=== PATIENT | female | born 1940 | race Caucasian/White ===

== ENCOUNTER → 2017-05-07 | Outpatient (CLI) | payer OTHER ==
[2017-05-07 10:57] LABS: HEMATOCRIT 38.3 % (37-47); MEAN CELL VOLUME 90.8 fL (80-100); MEAN CORPUSCULAR HEMOGLOBIN 29.6 pg (25-34); MEAN CORPUSCULAR HGB CONC 32.6 g/dl (32-36); MEAN PLATELET VOLUME 11.5 fL (7.4-10.4); PLATELET COUNT 198 K/uL (130-400); RED BLOOD COUNT 4.22 M/uL (4.2-5.4); WHITE BLOOD COUNT 5.64 K/uL (4.8-10.8)
[2017-05-07 11:21] LABS: ALT/SGPT 13 U/L (12-78); AST/SGOT 14 U/L (15-37); BLOOD UREA NITROGEN 15 mg/dl (7-18); BUN/CREATININE RATIO 21.8 (10-20); CALCIUM 9.7 mg/dl (8.5-10.1); CARBON DIOXIDE 28 mmol/L (21-32); CHLORIDE 108 mmol/L (98-107); CHOLESTEROL 191 mg/dl (0-200); CREATININE 0.67 mg/dl (0.60-1.20); GLUCOSE 86 mg/dl (70-99); POTASSIUM 3.6 mmol/L (3.5-5.1); SODIUM 143 mmol/L (136-145); TRIGLYCERIDES 138 mg/dl (0-150); VERY LOW DENSITY LIPOPROT CALC 28 mg/dl
[2017-05-07 11:40] LABS: ALB/GLOB RATIO 0.8 (0.9-2); ALKALINE PHOSPHATASE 95 U/L (45-117); CHOLESTEROL/HDL RATIO 4.9; HDL CHOLESTEROL 39 mg/dl; LDL CHOLESTEROL CALCULATED 124 mg/dl; THYROID STIMULATING HORMONE 0.103 uIu/ml (0.300-4.500)
== END | disposition home or self-care (01) ==
LOC: C.LABBC 08:09
PROVIDERS: ATTEND Surgery
DX: I10 Essential (primary) hypertension (principal); E11.9 Type 2 diabetes mellitus without complications; J44.9 Chronic obstructive pulmonary disease, unspecified

== ENCOUNTER 2022-04-07 11:05 | Observation (INO) ==
[2022-04-07 12:35] LABS: Basophils # (auto) 0.06 K/uL (0-0.2); Basophils % (auto) 0.3 %; Eosinophils # (auto) 0.01 K/uL (0-0.50); Hematocrit (blood only) 36.1 % (34.1-44.9); Hemoglobin 11.4 g/dl (12.0-16.0); Immature Granulocytes # (auto) 0.13 K/uL (0.00-0.02); Immature Granulocytes % (auto) 0.6 %; Lymphocytes # (auto) 1.02 K/uL (1.2-3.4); Lymphocytes % (auto) 4.8 %; Mean Corpuscular Hemoglobin 27.5 pg (25.0-34.0); Mean Corpuscular Hgb Conc 31.6 g/dL (32.0-36.0); Mean Platelet Volume 12.2 fL (9.4-12.3); Monocytes # (auto) 1.46 K/uL (0.24-0.82); Monocytes % (auto) 6.9 %; Neutrophils % (auto) 87.4 %; Platelet Count 212 K/uL (130-400); RDW Coefficient of Variation 15.5 % (11.5-14.5); RDW Standard Deviation 49.4 fL (36.4-46.3); Red Blood Count 4.15 M/uL (3.93-5.22); White Blood Count 21.08 K/ul (4.8-10.8)
[2022-04-07 12:47] LABS: Potassium 3.3 mmol/L (3.5-5.1)
[2022-04-07 12:48] LABS: Albumin Level 3.5 gm/dl (3.4-5.0); BUN Creatinine Ratio 19.5 (10-20); Bilirubin,Total 0.9 mg/dl (0.2-1.0); Creatinine Clr Calc Pharmacy 39.3 ml/min; Est GFR (African American) 78.3 ml/min; Est GFR (Non-African American) 67.6 ml/min; Globulin 3.4 gm/dl (2.5-4.0); Total Protein 6.9 gm/dl (6.0-8.3)
--- NOTE | 2022-04-07 13:25 | Emergency Department Note ---
Impression & Plan Leukopenia, Anemia, Abdominal pain, Vomiting ED Provider Note NAME: LOGAN MARCELINO AGE: 82 SEX: F : 1940 ARRIVES VIA: Walk-In INFORMANT: Patient ED PROVIDER(S): Anish Farrell DO CHIEF COMPLAINT: abdominal pain HPI: Patient is an 82-year-old female who presents to the ER with past medical history of superior mesenteric artery syndrome, squamous cell carcinoma, vocal cord paralysis, COPD, and hypothyroidism for periumbilical abdominal pain. She notes that she has been getting this pain off and on for the past year. Was initially several times a month now has been constant for the past several months. It got worse today and consequently she came in. She is taking Ultram for the pain. She admits to nausea, and diarrhea which started last night. V omiting started this morning. She has been unable to keep anything down since this started. No dysuria, urgency, or frequency. No other exacerbating or remitting factors. ROS: See above HPI for pertinent positives & negatives. A total of 10 systems reviewed and were otherwise negative. PAST MEDICAL HISTORY:See Below PAST SURGICAL HISTORY:See Below FAMILY HISTORY:See Below SOCIAL HISTORY:See Below HOME MEDICATIONS:See Below ALLERGIES:See Below VITALS:See Below PHYSICAL EXAMINATION: GENERAL: Sitting up in bed, alert, well appearing, well nourished, no distress, non-toxic EYE EXAM: normal conjunctiva. OROPHARYNX: no exudate, no erythema, lips, buccal mucosa, and tongue normal and mucous membranes are moist NECK: supple, no nuchal rigidity, no adenopathy, non-tender LUNGS: Clear to auscultation. Normal chest wall mechanics HEART: no murmurs, S1 normal and S2 normal ABDOMEN: abdomen soft, non-tender, normo-active bowel sounds, no masses, no rebound or guarding. UPPER EXTREMITIES: upper extremities are grossly normal. LOWER EXTREMITIES: No pitting edema. NEURO EXAM: Normal sensorium, cranial nerves II-XII grossly intact, normal speech, no gross weakness of arms, no gross weakness of legs. MEDICAL DECISION MAKING: Patient is an 82-year-old female who presents the ER for the above-stated complaint. IV was established blood work was obtained. Labs show a leukocytosis of 21,000. Mild anemia 11.4. Mild hypokalemia at 3.3. Lactate was normal. LFTs bilirubin and lipase was unremarkable. UA without infection. COVID was negative. CT angio abdomen pelvis showed no significant change from previous scans. Patient was given IV fluids and Zofran. She was updated bedside. Discussed with the hospitalist due to the abdominal pain, leukocytosis and persistent vomiting unable to keep anything down. They are agreeable to watch her overnight. Triage Nursing notes reviewed. Limited review of prior medical records performed Vital Signs: reviewed and remarkable for tachy Differential diagnosis: Differential diagnoses includes but is not limited to gastritis, peptic ulcer disease, GERD, gallbladder disease, pancreatitis, small bowel obstruction, acute coronary syndrome, pericarditis, ischemic bowel, irritable bowel disease, irritable bowel syndrome, appendicitis, diverticulitis, malignancy, hernia, urinary tract infection, torsion, perforation, trauma, infectious. ER treatment provided: See below Diagnostics interpreted by me: ECG: none Cardiac Monitoring: An order was placed for continuous cardiac monitoring. The monitor shows a rate of 82 with sinus rhythm. Laboratory studies: As stated above and show below. Imaging studies: CT angio of the abdomen pelvis showed no acute pathology. Consultation(s): none Procedures: none Critical Care: None Past Med/Surg History Medical History Acid reflux Adrenal nodule Atrial fibrillation Dx 4-5 years ago; on xarelto; hx cardioversion; follows with Dr. Pat COPD (chronic obstructive pulmonary disease) COHN (dyspnea on exertion) Glaucoma History of uterine cancer dx > 5 years; treated surgically HLD (hyperlipidemia) Hypertension Hyperthyroidism Poor historian Pulmonary nodules Vocal cord paralysis, unilateral complete Surgical History History of anesthesia reaction SLOW TO WAKE UP History of cardioversion History of cataract surgery RT/LEFT History of colonoscopy History of endoscopy History of esophagogastroduodenoscopy (EGD) History of total abdominal hysterectomy and bilateral salpingo-oophorectomy S/P cholecystectomy Family History Daughter Breast cancer Mother Cancer Uterine cancer Father Heart disease Sister Family history of diabetes mellitus Brother Family history of diabetes mellitus Aunt Family history of diabetes mellitus Aunt Family history of diabetes mellitus Other Family history non-contributory Hypertension No family history of adverse response to anesthesia Denies family history of Colon cancer Ovarian cancer Prostate cancer Myocardial infarction Social History Smoking Status: Never smoker Tobacco Type: Cigarettes Second Hand Exposure: No; Hx Alcohol Use: No Hx Substance Use: No Preferred Language: Czech Communication Ability: Effective Visual Impairment: No Limitations Hearing Ability: Normal Apartment Maintenance Manager Required: No Beliefs That Will Affect Care: None marital status: / Current Living Situation: Alone current occupational status: retired How many Children do You have: 3 Feels Safe at Home: Yes Childhood Exposure to Second-Hand Smoke: Yes caffeine: Yes during the past year weight has: remained stable Dental Care, Regularly: No Physical Activity Frequency: Does not Exercise Seatbelt Use: always Sunscreen Use: Yes Assistive Devices: Denture - Upper, Denture - Lower and Glasses Allergies Allergies Allergy/AdvReac Type Severity Reaction Status Date / Time No Known Drug Allergies Allergy Unknown Unknown Verified 03/28/22 08:44 adhesive tape AdvReac Intermediate PULLS SKIN Verified 03/28/22 08:44 OFF Home Meds Home Medications Medication Instructions Recorded Confirmed latanoprost 0.005 % eye drops 1 drp OPB HS 11/20/18 03/28/22 (Xalatan) diltiazem HCl 240 mg 240 mg PO QAM 03/24/22 03/28/22 capsule,extended release 24 hr Previous Rx's Medication Instructions Recorded benazepril 20 mg tablet 40 mg PO QPM #180 tabs 04/18/21 pantoprazole 40 mg tablet,delayed 40 mg PO BID #180 tabs 07/17/21 release ipratropium 0.5 mg-albuterol 3 mg 3 ml inhalation BID PRN shortness 08/24/21 (2.5 mg base)/3 mL nebulization of breath or wheezing #15 mL soln methimazole 5 mg tablet 5 mg PO QAM 90 days #90 tabs 11/02/21 fluticasone fur. 100 mcg-umeclid 1 inh inhalation DAILY #60 ea 11/06/21 62.5 mcg-vilant 25 mcg inhalat.powder (Trelegy Ellipta) rivaroxaban 20 mg tablet (Xarelto) 20 mg PO QPM #90 tabs 01/16/22 ferrous sulfate 325 mg (65 mg 325 mg PO QAM #90 tabs 01/31/22 iron) tablet (Iron (ferrous sulfate)) albuterol sulfate 90 mcg/actuation 2 puff inhalation QID PRN 02/22/22 aerosol inhaler (Ventolin HFA) Shortness Of Breath Or Wheezing #8.5 grams atorvastatin 10 mg tablet 10 mg PO QPM #90 tabs 03/05/22 dicyclomine 10 mg capsule 10 mg PO QID 30 days #120 caps 03/15/22 tramadol 50 mg tablet (Ultram) 50 mg PO Q12H PRN pain #20 tabs 03/24/22 tramadol 50 mg tablet (Ultram) 50 mg PO Q12H PRN pain #20 tabs 03/25/22 Results & Data (ED) Vital Signs Vital Signs - 24 hr 04/07/22 11:15 04/07/22 12:00 04/07/22 13:40 Temperature 36.5 C Temperature Source Temporal Artery Scan Pulse Rate 93 H 105 H Pulse Rate [Apical] 87 Pulse Rate from SpO2 Sensor 99 H Respiratory Rate 20 17 18 Respiratory Effort / Characteristics Non-Labored Respiratory Depth Normal Blood Pressure 137/70 105/68 Blood Pressure [Left Arm] 151/64 H Blood Pressure Mean 92 80 Blood Pressure Mean [Left Arm] 93 Pulse Oximetry 92 92 96 Oxygen Delivery Method Room Air Room Air Sepsis Recent Fever Within 48 Hours No Sepsis New/Unexplained Change in Mental Status N/A Sepsis Action Taken by Nursing No Action Required 04/07/22 13:40 Temperature Temperature Source Pulse Rate Pulse Rate [Apical] Pulse Rate from SpO2 Sensor Respiratory Rate Respiratory Effort / Characteristics Respiratory Depth Blood Pressure Blood Pressure [Left Arm] Blood Pressure Mean Blood Pressure Mean [Left Arm] Pulse Oximetry 96 Oxygen Delivery Method Room Air Sepsis Recent Fever Within 48 Hours Sepsis New/Unexplained Change in Mental Status Sepsis Action Taken by Nursing Laboratory Data Result diagrams: 04/07/22 11:40 04/07/22 11:40 Lab Results 04/07/22 04/07/22 04/07/22 Range/Units 11:40 11:40 13:44 WBC 21.08 H (4.8-10.8) K/ul RBC 4.15 (3.93-5.22) M/uL Hgb 11.4 L (12.0-16.0) g/dl Hct 36.1 (34.1-44.9) % MCV 87.0 (80.0-100.0) fL MCH 27.5 (25.0-34.0) pg MCHC 31.6 L (32.0-36.0) g/dL RDW Std Deviation 49.4 H (36.4-46.3) fL RDW Coeff of Rosio 15.5 H (11.5-14.5) % Plt Count 212 (130-400) K/uL MPV 12.2 (9.4-12.3) fL Immature Gran % (Auto) 0.6 % Neut % (Auto) 87.4 % Lymph % (Auto) 4.8 % [place] % (Auto) 6.9 % Eos % (Auto) 0.0 % Baso % (Auto) 0.3 % Neut # (Auto) 18.40 H (1.4-6.5) K/uL Lymph # (Auto) 1.02 L (1.2-3.4) K/uL [place] # (Auto) 1.46 H (0.24-0.82) K/uL Eos # (Auto) 0.01 (0-0.50) K/uL Baso # (Auto) 0.06 (0-0.2) K/uL Immature Gran # (Auto) 0.13 H (0.00-0.02) K/uL Sodium 140 (136-145) mmol/L Potassium 3.3 L (3.5-5.1) mmol/L Chloride 103 (98-107) mmol/L Carbon Dioxide 25 (21-32) mmol/L Anion Gap 12 H (3-11) BUN 16 (6-23) mg/dl Creatinine 0.82 (0.6-1.2) mg/dl Est Cr Clr Drug Dosing 39.3 ml/min Est GFR ( Amer) 78.3 ml/min Est GFR (Non-Af Amer) 67.6 ml/min BUN/Creatinine Ratio 19.5 (10-20) Glucose 122 H (70-99(Fasting)) mg/dl Lactate (0.4-2.0) mmol/L Calcium 8.0 L (8.5-10.1) mg/dl Total Bilirubin 0.9 (0.2-1.0) mg/dl AST 14 (13-39) U/L ALT 9 (7-52) U/L Alkaline Phosphatase 87 (34-104) U/L Total Protein 6.9 (6.0-8.3) gm/dl Albumin 3.5 (3.4-5.0) gm/dl Globulin 3.4 (2.5-4.0) gm/dl Albumin/Globulin Ratio 1.0 (0.9-2) Lipase 16 (11-82) U/L Urine Color Dark Yellow Urine Appearance Clear (Clear) Urine pH 5.5 (4.5-7.5) Ur Specific [place] 1.022 (1.000-1.030) Urine Protein 1+ H (Negative) Urine Glucose (UA) Negative (Negative) Urine Ketones Trace H (Negative) Urine Blood Negative (Negative) Urine Nitrite Negative (Negative) Urine Bilirubin Negative (Negative) Urine Urobilinogen Negative (Negative) Ur Leukocyte Esterase Trace H (Negative) Urine WBC (Auto) 1-5 (0-5) /hpf Urine RBC (Auto) 0-4 (0-4) /hpf U Hyaline Cast (Auto) 1-5 (0-5) /lpf U Epithel Cells (Auto) >30 H (0-5) /lpf Urine Bacteria (Auto) Negative (Negative) SARS-CoV-2, RNA, NAAT (NEGATIVE) 04/07/22 04/07/22 Range/Units 15:09 15:26 WBC (4.8-10.8) K/ul RBC (3.93-5.22) M/uL Hgb (12.0-16.0) g/dl Hct (34.1-44.9) % MCV (80.0-100.0) fL MCH (25.0-34.0) pg MCHC (32.0-36.0) g/dL RDW Std Deviation (36.4-46.3) fL RDW Coeff of [place] (11.5-14.5) % Plt Count (130-400) K/uL MPV (9.4-12.3) fL Immature Gran % (Auto) % Neut % (Auto) % Lymph % (Auto) % [place] % (Auto) % Eos % (Auto) % Baso % (Auto) % Neut # (Auto) (1.4-6.5) K/uL Lymph # (Auto) (1.2-3.4) K/uL [place] # (Auto) (0.24-0.82) K/uL Eos # (Auto) (0-0.50) K/uL Baso # (Auto) (0-0.2) K/uL Immature Gran # (Auto) (0.00-0.02) K/uL Sodium (136-145) mmol/L Potassium (3.5-5.1) mmol/L Chloride (98-107) mmol/L Carbon Dioxide (21-32) mmol/L Anion Gap (3-11) BUN (6-23) mg/dl Creatinine (0.6-1.2) mg/dl Est Cr Clr Drug Dosing ml/min Est GFR ( Amer) ml/min Est GFR (Non-Af Amer) ml/min BUN/Creatinine Ratio (10-20) Glucose (70-99(Fasting)) mg/dl Lactate 0.9 (0.4-2.0) mmol/L Calcium (8.5-10.1) mg/dl Total Bilirubin (0.2-1.0) mg/dl AST (13-39) U/L ALT (7-52) U/L Alkaline Phosphatase (34-104) U/L Total Protein (6.0-8.3) gm/dl Albumin (3.4-5.0) gm/dl Globulin (2.5-4.0) gm/dl Albumin/Globulin Ratio (0.9-2) Lipase (11-82) U/L Urine Color Urine Appearance (Clear) Urine pH (4.5-7.5) Ur Specific [place] (1.000-1.030) Urine Protein (Negative) Urine Glucose (UA) (Negative) Urine Ketones (Negative) Urine Blood (Negative) Urine Nitrite (Negative) Urine Bilirubin (Negative) Urine Urobilinogen (Negative) Ur Leukocyte Esterase (Negative) Urine WBC (Auto) (0-5) /hpf Urine RBC (Auto) (0-4) /hpf U Hyaline Cast (Auto) (0-5) /lpf U Epithel Cells (Auto) (0-5) /lpf Urine Bacteria (Auto) (Negative) SARS-CoV-2, RNA, NAAT NEGATIVE (NEGATIVE) Administered Medications Discontinued Medications Sodium Chloride (Nss 1000ml) 1,000 mls @ 999 mls/hr IV .Q1H1M ONE Stop: 04/07/22 15:38 Last Admin: 04/07/22 14:50 Dose: 999 mls/hr Documented By: MARK Ioversol (Optiray 320 500ml) 120 ml IV ONCE ONE Stop: 04/07/22 13:35 Last Admin: 04/07/22 13:35 Dose: 120 ml Documented By: SHARATH(2) Ondansetron HCl (Ondansetron Inj 2 Mg/Ml 2 Ml Vial) 4 mg IV NOW STA Stop: 04/07/22 14:39 Last Admin: 04/07/22 14:50 Dose: 4 mg Documented By: MARK Imaging Data Radiologist's Impression: Abdomen/Pelvis CTA 04/07/22 12:44 CT angio abdomen pelvis w con HISTORY: Generalized abdominal and back pain. TECHNIQUE: Multiaxial CT images of the abdomen and pelvis were performed following the intravenous administration of 120 cc of Optiray 320 to evaluate the major arterial structures. Maximal intensity projection images were also obtained. COMPARISON STUDY: Abdomen and pelvis CTA 03/24/2022. FINDINGS: Small patchy density within the right middle lobe which is new from the prior study. This could represent a mild pneumonitis. No pneumoperitoneum. N o pneumatosis. No acute fractures within the visualized osseous structures. The heart remains mildly enlarged. The bladder is unremarkable. Prior hysterectomy. Fluid-filled loops of small and large bowel seen throughout the abdomen. Some of these loops of large and small bowel may demonstrate mild mucosal hyperenhancement. Therefore, this raises the possibility of a low-grade enterocolitis. No evidence for bowel obstruction. Normal appendix. No retroperitoneal lymphadenopathy. The right adrenal gland, spleen, and pancreas are unremarkable. Stable left adrenal gland nodule. Multiple stable scattered hypodense lesions again noted within the kidneys. These favor cysts. No hydronephrosis. Stable 9 mm right renal angiomyolipoma. Stable 2.7 cm hypodense lesion within the left hepatic lobe consistent with a cyst. Stable 1.8 cm left renal midpole complex/septated cyst. This is better appreciated on the prior MRI There is again noted a mildly ectatic abdominal aorta measuring up to 2.3 cm in diameter. No evidence for abdominal aortic aneurysm or dissection. Moderate to severe calcified plaque seen within the aorta, iliac arteries, renal, and mesenteric vessels. 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 This is unchanged since prior CTA. The vessel is occluded 1.5 cm proximal. There is moderate stenosis within the remainder of the SMA. There is moderate stenosis at the origin the celiac axis and inferior mesenteric artery. IMPRESSION: 1. Fluid-filled loops of small and large bowel seen throughout the abdomen. Some of these loops of large and small bowel may demonstrate mild mucosal hyperenhancement. Therefore, this raises the possibility of a low-grade enterocolitis. 2. Occluded proximal SMA with distal reconstitution remains unchanged. There is moderate stenosis at the origins of the celiac axis and inferior mesenteric artery. Extensive atherosclerotic plaque within the abdominal aorta and branch vessels again noted. 3. Small patchy airspace opacity within the right middle lobe. This could represent a developing pneumonitis. ACT 112: Negative or not required by law. Electronically signed by: Leonard Lucia M.D. 04/07/2022 1:49 PM Discharge Plan Visit Data Chief Complaint: Abdominal Pain Stated Complaint: ABDOMINAL AND BACK PAIN, NUMB HAND ED Provider: Anish Farrell Discharge Problem: Leukopenia, Anemia, Abdominal pain, Vomiting Forms Stand Alone Forms: [facility] [employer] Prescriptions Prescriptions: No Action benazepril 20 mg tablet 40 mg PO QPM Qty: 180 3RF ipratropium-albuterol 0.5 mg-3 mg(2.5 mg base)/3 mL solution for nebulization 3 ml inhalation BID PRN (Reason: shortness of breath or wheezing) Qty: 15 1RF Rx Instructions: INHALE 3 ML INHALATION TWICE A DAY NEEDED FOR SHORTNESS OF BREATH OR WHEEZING methimazole 5 mg tablet 5 mg PO QAM 90 Days Qty: 90 1RF Trelegy Ellipta 100-62.5-25 mcg blister with device 1 inh inhalation DAILY Qty: 60 2RF Xarelto 20 mg tablet 20 mg PO QPM Qty: 90 1RF Rx Instructions: TAKE 1 TABLET BY MOUTH EVERY DAY IN THE EVENING ferrous sulfate [Iron (ferrous sulfate)] 325 mg (65 mg iron) tablet 325 mg PO QAM Qty: 90 1RF atorvastatin 10 mg tablet 10 mg PO QPM Qty: 90 1RF dicyclomine 10 mg capsule 10 mg PO QID 30 Days Qty: 120 0RF pantoprazole 40 mg tablet,delayed release (DR/EC) 40 mg PO BID Qty: 180 3RF albuterol sulfate [Ventolin HFA] 90 mcg/actuation HFA aerosol inhaler 2 puff INHALATION QID PRN (Reason: Shortness Of Breath Or Wheezing) Qty: 8.5 1RF latanoprost [Xalatan] 0.005 % drops 1 drp OPB HS diltiazem HCl 240 mg capsule,extended release 24hr 240 mg PO QAM Rx Instructions: TAKE 1 CAPSULE BY MOUTH EVERY DAY tramadol [Ultram] 50 mg tablet 50 mg PO Q12H PRN (Reason: pain) Qty: 20 0RF tramadol [Ultram] 50 mg tablet 50 mg PO Q12H PRN (Reason: pain) Qty: 20 0RF Referrals Referrals: Carlton Mendez III, CRNP [Primary Care Provider] -
[2022-04-07] MEDS ORDERED: OPTIRAY 320 500ml IV ONE (13:34)
--- NOTE | 2022-04-07 13:51 | CT Scan Report ---
CT angio abdomen pelvis w con HISTORY: Generalized abdominal and back pain. TECHNIQUE: Multiaxial CT images of the abdomen and pelvis were performed following the intravenous ad ministration of 120 cc of Optiray 320 to evaluate the major arterial structures. Maximal intensity pr ojection images were also obtained. COMPARISON STUDY: Abdomen and pelvis CTA 03/24/2022. FINDINGS: Small patchy density within the right middle lobe which is new from the prior study. This c ould represent a mild pneumonitis. No pneumoperitoneum. No pneumatosis. No acute fractures within the visualized osseous structures. The heart remains mildly enlarged. The bladder is unremarkable. Prior hysterectomy. Fluid-filled loops of small and large bowel seen throughout the abdomen. Some of these loops of large and small bowel may demonstrate mild mucosal hyperenhancement. Therefore, this raises the possibility of a low-grade enterocolitis. No evidence for bowel obstruction. Normal appendix. No retroperitoneal lymphadenopathy. The right adrenal gland, spleen, and pancreas are unremarkable. Sta ble left adrenal gland nodule. Multiple stable scattered hypodense lesions again noted within the kid neys. These favor cysts. No hydronephrosis. Stable 9 mm right renal angiomyolipoma. Stable 2.7 cm hyp odense lesion within the left hepatic lobe consistent with a cyst. Stable 1.8 cm left renal midpole c omplex/septated cyst. This is better appreciated on the prior MRI There is again noted a mildly ectatic abdominal aorta measuring up to 2.3 cm in diameter. No evidence for abdominal aortic aneurysm or dissection. Moderate to severe calcified plaque seen within the aor ta, iliac arteries, renal, and mesenteric vessels. Occlusion of the proximal SMA with distal reconsti tution is again noted. This is unchanged since prior CTA. The vessel is occluded 1.5 cm proximal. The re is moderate stenosis within the remainder of the SMA. There is moderate stenosis at the origin the celiac axis and inferior mesenteric artery. IMPRESSION: 1. Fluid-filled loops of small and large bowel seen throughout the abdomen. Some of these loops of la rge and small bowel may demonstrate mild mucosal hyperenhancement. Therefore, this raises the possibi lity of a low-grade enterocolitis. 2. Occluded proximal SMA with distal reconstitution remains unchanged. There is moderate stenosis at the origins of the celiac axis and inferior mesenteric artery. Extensive atherosclerotic plaque withi n the abdominal aorta and branch vessels again noted. 3. Small patchy airspace opacity within the right middle lobe. This could represent a developing pneu monitis. ACT 112: Negative or not required by law. Electronically signed by: Leonard Lucia M.D. 04/07/2022 1:49 PM
[2022-04-07 14:21] LABS: Appearance Urine Clear (Clear); Bacteria Urine Automated Negative (Negative); Bilirubin Urine Negative (Negative); Blood Urine Negative (Negative); Color Urine Dark Yellow; Epithelial Cell Urine Auto >30 /lpf (0-5); Glucose Urine UA Negative (Negative); Ketones Urine Trace (Negative); Leukocyte Esterase Urine Trace (Negative); Nitrite Urine Negative (Negative); Protein Urine 1+ (Negative); RBC Urine Automated 0-4 /hpf (0-4); Specific Gravity Urine 1.022 (1.000-1.030); Urobilinogen Urine Negative (Negative); pH Urine 5.5 (4.5-7.5)
[2022-04-07] MEDS ORDERED: ONDANSETRON INJ 2 MG/ML 2 ML VIAL IV STA (14:38)
[2022-04-07] MEDS ORDERED: SODIUM CHLORIDE 0.9% 1000ML 1,000 ML IV ONE (14:38)
--- NOTE | 2022-04-07 14:51 | History & Physical Report ---
Date of Service April 07, 2022 Assessment & Plan (1) Abdominal pain: Plan: Abdominal pain, SMA syndrome Patient with significant postprandial pain, currently with inadequate p.o. intake Follows with vascular, last seen 03/27/2022. CTA with moderate stenosis of celiac axis, occlusion of SMA with reconstitution, extensive aortic/common iliac/external iliac complex. She is not a candidate for endovascular intervention to mesenteric artery, pending bypass revascular[place] [facility] Patient seen by cardiology 03/28/2022 for preoperative clearance for anticipated mesenteric artery bypass at [facility]. At that visit was noted to be stable, but given higher surgical risk and underlying risk factors was recommended for stress echo follow-up prior to procedure which remains pending Patient is anticoagulated on rivaroxaban, - CTA: 1. Fluid-filled loops of small and large bowel seen throughout the abdomen. Some of these loops of large and small bowel may demonstrate mild mucosal hyperenhancement. Therefore, this raises the possibility of a low-grade enterocolitis. 2. Occluded proximal SMA with distal reconstitution remains unchanged. There is moderate stenosis at the origins of the celiac axis and inferior mesenteric artery. Extensive atherosclerotic plaque within the abdominal aorta and branch vessels again noted. 3. Small patchy airspace opacity within the right middle lobe. This could represent a developing pneumonitis. No interval change in blood flow to SMA as noted above. Patient given supportive care, given potential for low-grade enterocolitis pathogen panel ordered. Lactate pending. - Clears as tolerated - Zofran for nausea - Morphine PRN - ?Mild coloitis on exam, unasyn for enteric coverage Atrial fibrillation Permanent atrial fibrillation Rate controlled, continue diltiazem Continue rivaroxaban anticoagulation Hyperthyroidism Continue methimazole Reflux Continue Protonix twice daily, converted to IV while n.p.o. Hypertension Continue JAY, diltiazem DVT prophylaxis: Anticoagulated CODE STATUS: Full code Disposition: Medical/surgical Diet: N.p.o. (2) Anemia: (3) COPD (chronic obstructive pulmonary disease): (4) SMAS (superior mesenteric artery syndrome): (5) Atrial fibrillation: History of Present Illness Primary Care Provider: Carlton Mendez, III, LUIZ Lakeshia is an 82-year-old female with a past medical history of superior mesenteric artery syndrome, pulmonary nodules, A. fib, COPD, hypertension, multinodular goiter, reflux, and hypothyroidism who is pending surgical follow-up in [facility] for SMA syndrome who presents with abdominal pain. Pain off and on for 1 year Pending surgery at [facility] on Saturday. Stress Test scheduled for Apr 18 Estefania to have pain in the miline from top to bottom of her belly. 03/05 when she has a flare, last week had 2 relatively pain free days, last few days has been ~ an 8. Has no noticed a signifant change with meals in the last few weeks, generally just hurts on and off on its own. No fevers or chills BMs 'terrible. Runny and liquid. BMs are sometimes bloom and sometimes brown depending on if she can eat. No bloody/black BMs. No worsened shortness of breateh, chest pressure, or chest pain. Has a baseline dry cough, nonproductive. Hx of laryngeal reflux. Medical History: Reviewed Medications: Reviewed Surgical History: Reviewed Allergies: Reviewed Social History: Former smoker no etho Code Status: Full Allergies Allergy/AdvReac Type Severity Reaction Status Date / Time No Known Drug Allergies Allergy Unknown Unknown Verified 03/28/22 08:44 adhesive tape AdvReac Intermediate PULLS SKIN Verified 03/28/22 08:44 OFF Home Medications Medication Instructions Recorded Confirmed Type latanoprost 0.005 % eye drops 1 drp OPB HS 11/20/18 03/28/22 History (Xalatan) benazepril 20 mg tablet 40 mg PO QPM #180 tabs 04/18/21 03/28/22 Rx pantoprazole 40 mg tablet,delayed 40 mg PO BID #180 tabs 07/17/21 03/28/22 Rx release ipratropium 0.5 mg-albuterol 3 mg 3 ml inhalation BID PRN shortness 08/24/21 03/28/22 Rx (2.5 mg base)/3 mL nebulization of breath or wheezing #15 mL soln methimazole 5 mg tablet 5 mg PO QAM 90 days #90 tabs 11/02/21 03/28/22 Rx fluticasone fur. 100 mcg-umeclid 1 inh inhalation DAILY #60 ea 11/06/21 03/28/22 Rx 62.5 mcg-vilant 25 mcg inhalat.powder (Trelegy Ellipta) rivaroxaban 20 mg tablet (Xarelto) 20 mg PO QPM #90 tabs 01/16/22 03/28/22 Rx ferrous sulfate 325 mg (65 mg 325 mg PO QAM #90 tabs 01/31/22 03/28/22 Rx iron) tablet (Iron (ferrous sulfate)) albuterol sulfate 90 mcg/actuation 2 puff inhalation QID PRN 02/22/22 03/28/22 Rx aerosol inhaler (Ventolin HFA) Shortness Of Breath Or Wheezing #8.5 grams atorvastatin 10 mg tablet 10 mg PO QPM #90 tabs 03/05/22 03/28/22 Rx dicyclomine 10 mg capsule 10 mg PO QID 30 days #120 caps 03/15/22 03/28/22 Rx diltiazem HCl 240 mg 240 mg PO QAM 03/24/22 03/28/22 History capsule,extended release 24 hr tramadol 50 mg tablet (Ultram) 50 mg PO Q12H PRN pain #20 tabs 03/24/22 03/28/22 Rx tramadol 50 mg tablet (Ultram) 50 mg PO Q12H PRN pain #20 tabs 03/25/22 03/28/22 Rx Past Med/Surg History Medical History Acid reflux Adrenal nodule Atrial fibrillation Dx 4-5 years ago; on xarelto; hx cardioversion; follows with Dr. Pat COPD (chronic obstructive pulmonary disease) COHN (dyspnea on exertion) Glaucoma History of uterine cancer dx > 5 years; treated surgically HLD (hyperlipidemia) Hypertension Hyperthyroidism Poor historian Pulmonary nodules Vocal cord paralysis, unilateral complete Surgical History History of anesthesia reaction SLOW TO WAKE UP History of cardioversion History of cataract surgery RT/LEFT History of colonoscopy History of endoscopy History of esophagogastroduodenoscopy (EGD) History of total abdominal hysterectomy and bilateral salpingo-oophorectomy S/P cholecystectomy Family History Daughter Breast cancer Mother Cancer Uterine cancer Father Heart disease Sister Family history of diabetes mellitus Brother Family history of diabetes mellitus Aunt Family history of diabetes mellitus Aunt Family history of diabetes mellitus Other Family history non-contributory Hypertension No family history of adverse response to anesthesia Denies family history of Colon cancer Ovarian cancer Prostate cancer Myocardial infarction Social History Smoking Status: Never smoker Tobacco Type: Cigarettes Second Hand Exposure: No; Hx Alcohol Use: No Hx Substance Use: No Preferred Language: Occitan Communication Ability: Effective Visual Impairment: No Limitations Hearing Ability: Normal Conservation Of Resources Commissioner Required: No Beliefs That Will Affect Care: None marital status: / Current Living Situation: Alone current occupational status: retired How many Children do You have: 3 Feels Safe at Home: Yes Childhood Exposure to Second-Hand Smoke: Yes caffeine: Yes during the past year weight has: remained stable Dental Care, Regularly: No Physical Activity Frequency: Does not Exercise Seatbelt Use: always Sunscreen Use: Yes Assistive Devices: Denture - Upper, Denture - Lower and Glasses Review of Systems Review of Systems: All systems reviewed & are unremarkable except as noted in HPI & below Physical Exam Physical Exam: General: A&Ox3. NAD. Cooperative. Nontoxic HEENT: Atraumatic, normocephalic. Pulm: CTAB A&P. -wheezes, -rales, -rhonchi. Symmetrical chest rise. No increased work of breathing. No respiratory distress. Cardiac: irir, -mrg. Radial pulses intact and symmetrical. Abdominal: Mild TTP at epigastum minimally worsened with palpation, no rebound. BS intact. Ext: warm, dry Results & Data Results & Data ([facility]) Vital Signs (Past 12 Hours) Vital Signs Temp Pulse Pulse Resp BP BP Pulse Ox 04/07/22 13:40 96 04/07/22 13:40 87 18 151/64 H 96 04/07/22 12:00 105 H 17 105/68 92 04/07/22 11:15 36.5 C 93 H 20 137/70 92 O2 Del Method 04/07/22 13:40 Room Air 04/07/22 13:40 Room Air 04/07/22 12:00 04/07/22 11:15 Room Air PG Care Time/CCT Total # of Minutes Spent Total Time Spent with Patient: Total time spent is greater than 50% in coordination of care (as documented) at patient's floor/unit and/or counseling patient: Coding Level of Care Code INT OBSERVATION CARE 50M LVL 2 Diagnoses Abdominal pain R10.9 Anemia D64.9 COPD (chronic obstructive pulmonary disease) J44.9 COPD type: unspecified COPD SMAS (superior mesenteric artery syndrome) K55.1 Atrial fibrillation I48.11 Atrial fibrillation type: longstanding persistent (1) COPD (chronic obstructive pulmonary disease) COPD type: unspecified COPD Qualified Code(s): J44.9 - Chronic obstructive pulmonary disease, unspecified (2) Atrial fibrillation Atrial fibrillation type: longstanding persistent Qualified Code(s): I48.11 - Longstanding persistent atrial fibrillation
[2022-04-07] MEDS ORDERED: LACTATED RINGER'S 1,000 ML IV SCH (16:54)
[2022-04-07] MEDS ORDERED: MoRPHine SULFATE 2 MG/ML CARP IV PRN ×2 (16:54)
[2022-04-07] MEDS ORDERED: ONDANSETRON INJ 2 MG/ML 2 ML VIAL IV PRN (16:54)
[2022-04-07] MEDS ORDERED: ACETAMINOPHEN 325 MG TAB PO PRN (16:54)
[2022-04-07] MEDS: POTASSIUM CHLORIDE / WTR 10 MEQ/100 ML PLCT IV SCH ×3 (18:27→20:21)
[2022-04-07 19:46] LABS: Adenovirus F 40/41 PCR Not Detected (NotDetected); Astrovirus PCR Not Detected (NotDetected); Campylobacter PCR Not Detected (NotDetected); Cryptosporidium PCR Not Detected (NotDetected); Cyclospora cayetanensis PCR Not Detected (NotDetected); Entamoeba histolytica PCR Not Detected (NotDetected); Enteroaggregative E.coli(EAEC) Not Detected (NotDetected); Enteropathogenic E.coli (EPEC) Not Detected (NotDetected); Enterotoxigenic E.coli (ETEC) Not Detected (NotDetected); Giardia lamblia PCR Not Detected (NotDetected); Norovirus GI/GII PCR Not Detected (NotDetected); Plesiomonas shigelloides PCR Not Detected (NotDetected); Rotavirus A PCR Not Detected (NotDetected); Salmonella PCR Not Detected (NotDetected); Sapovirus PCR Not Detected (NotDetected); Shiga-like Toxin E.coli (STEC) Not Detected (NotDetected); Shigella/Enteroinvasive E.coli Not Detected (NotDetected); Vibrio cholerae PCR Not Detected (NotDetected); Vibrio species PCR Not Detected (NotDetected); Yersinia enterocolitica PCR Not Detected (NotDetected)
[2022-04-07] MEDS: PANTOprazole 40 MG TAB PO SCH (20:27)
[2022-04-07] MEDS ORDERED: RIVAROXABAN 15 MG TAB PO SCH (21:00)
[2022-04-07] MEDS ORDERED: ENALAPRIL MALEATE 10 MG TAB PO SCH (21:00)
[2022-04-07] MEDS ORDERED: LATANOPROST 0.005% OP SOLN 2.5 ML BTL OPB SCH (21:00)
[2022-04-07] MEDS ORDERED: ATORVASTATIN 10 MG TAB PO SCH (21:00)
[2022-04-08 06:09] LABS: Basophils # (auto) 0.05 K/uL (0-0.2); Basophils % (auto) 0.7 %; Eosinophils # (auto) 0.08 K/uL (0-0.50); Eosinophils % (auto) 1.1 %; Hematocrit (blood only) 31.4 % (34.1-44.9); Immature Granulocytes # (auto) 0.05 K/uL (0.00-0.02); Immature Granulocytes % (auto) 0.7 %; Lymphocytes # (auto) 1.34 K/uL (1.2-3.4); Lymphocytes % (auto) 17.9 %; Mean Corpuscular Hemoglobin 27.9 pg (25.0-34.0); Mean Corpuscular Hgb Conc 31.8 g/dL (32.0-36.0); Mean Corpuscular Volume 87.5 fL (80.0-100.0); Monocytes # (auto) 0.54 K/uL (0.24-0.82); Monocytes % (auto) 7.2 %; Neutrophils # (auto) 5.42 K/uL (1.4-6.5); Neutrophils % (auto) 72.4 %; Platelet Count 165 K/uL (130-400); RDW Coefficient of Variation 15.4 % (11.5-14.5); RDW Standard Deviation 49.4 fL (36.4-46.3); Red Blood Count 3.59 M/uL (3.93-5.22); White Blood Count 7.48 K/ul (4.8-10.8)
[2022-04-08 06:10] LABS: BUN Creatinine Ratio 20.7 (10-20); Calcium 7.2 mg/dl (8.5-10.1); Creatinine Clr Calc Pharmacy 55.6 ml/min; Est GFR (African American) 100.9 ml/min; Est GFR (Non-African American) 87.1 ml/min; Potassium 3.3 mmol/L (3.5-5.1)
[2022-04-08] MEDS ORDERED: POTASSIUM CHLORIDE CRTAB 20 MEQ TABCR PO STA (07:52)
[2022-04-08] MEDS ORDERED: dilTIAZem HCL 240 MG CAPCR PO SCH (09:00)
[2022-04-08] MEDS ORDERED: NON-FORMULARY MEDICATION (Fluticasone-Umeclidin-Vilanter [Trelegy Ellipta] 100-62.5-25 mcg INH SCH (09:00)
[2022-04-08] MEDS ORDERED: FLUTICASONE FUROATE 100MCG 14 PUFFS/INHALER INH SCH (09:00)
[2022-04-08] MEDS ORDERED: methIMAzole 5 MG TABLET PO SCH (09:00)
[2022-04-08] MEDS ORDERED: UMECLIDINIUM/VILANTEROL 62.5/25MCG 7 PUFFS/INHALER INH SCH (09:00)
[2022-04-08] MEDS: PANTOprazole 40 MG TAB PO SCH (09:10)
--- NOTE | 2022-04-08 12:18 | Discharge Summary ---
Date of Service April 08, 2022 Admission HPI Per Admitting Provider Lakeshia is an 82-year-old female with a past medical history of superior mesenteric artery syndrome, pulmonary nodules, A. fib, COPD, hypertension, multinodular goiter, reflux, and hypothyroidism who is pending surgical follow-up in [facility] for SMA syndrome who presents with abdominal pain. Pain off and on for 1 year Pending surgery at [facility] [place] on Saturday. Stress Test scheduled for Apr 18 Coninues to have pain in the miline from top to bottom of her belly. 03/05 when she has a flare, last week had 2 relatively pain free days, last few days has been ~ an 8. Has no noticed a signifant change with meals in the last few weeks, generally just hurts on and off on its own. No fevers or chills BMs 'terrible. Runny and liquid. BMs are sometimes bloom and sometimes brown depending on if she can eat. No bloody/black BMs. No worsened shortness of breateh, chest pressure, or chest pain. Has a baseline dry cough, nonproductive. Hx of laryngeal reflux. Medical History: Reviewed Medications: Reviewed Surgical History: Reviewed Allergies: Reviewed Social History: Former smoker no etho Code Status: Full Principal Diagnosis 1. Abdominal pain- resolved 2. SMAS 3. Hypokalemia-corrected Discharge Exam GENERAL: 82 yo Well-developed, well-nourished elderly WF. NAD. LUNGS: Clear to auscultation bilaterally. No W/R/R. CARDIOVASCULAR: Irreg rhythm. No M/G/R. ABDOMEN: Soft, non-tender and non-distended. No palpable masses. BS normoactive x 4 quad. EXTREMITIES: No edema. Non-tender. Peripheral pulses +2/4. NEUROLOGIC: A&O x3. Nonfocal PSYCHIATRIC: Cooperative. Appropriate mood and affect. SKIN: Warm, dry, intact. No rashes or lesions. Discharge Data Allergies Allergy/AdvReac Type Severity Reaction Status Date / Time No Known Drug Allergies Allergy Unknown Unknown Verified 04/07/22 16:40 adhesive tape AdvReac Intermediate PULLS SKIN Verified 04/07/22 16:40 OFF Consultations 04/07/22 14:39 ED Decision to Admit Stat Ordered Studies Abdomen/Pelvis CTA 04/07/22 12:44 CT angio abdomen pelvis w con HISTORY: Generalized abdominal and back pain. TECHNIQUE: Multiaxial CT images of the abdomen and pelvis were performed following the intravenous administration of 120 cc of Optiray 320 to evaluate the major arterial structures. Maximal intensity projection images were also obtained. COMPARISON STUDY: Abdomen and pelvis CTA 03/24/2022. FINDINGS: Small patchy density within the right middle lobe which is new from the prior study. This could represent a mild pneumonitis. No pneumoperitoneum. No pneumatosis. No acute fractures within the visualized osseous structures. The heart remains mildly enlarged. The bladder is unremarkable. Prior hysterectomy. Fluid-filled loops of small and large bowel seen throughout the abdomen. Some of these loops of large and small bowel may demonstrate mild mucosal hyperenhancement. Therefore, this raises the possibility of a low-grade enterocolitis. No evidence for bowel obstruction. Normal appendix. No retroperitoneal lymphadenopathy. The right adrenal gland, spleen, and pancreas are unremarkable. Stable left adrenal gland nodule. Multiple stable scattered hypodense lesions again noted within the kidneys. These favor cysts. No hydronephrosis. Stable 9 mm right renal angiomyolipoma. Stable 2.7 cm hypodense lesion within the left hepatic lobe consistent with a cyst. Stable 1.8 cm left renal midpole complex/septated cyst. This is better appreciated on the prior MRI There is again noted a mildly ectatic abdominal aorta measuring up to 2.3 cm in diameter. No evidence for abdominal aortic aneurysm or dissection. Moderate to severe calcified plaque seen within the aorta, iliac arteries, renal, and mesenteric vessels. 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 This is unchanged since prior CTA. The vessel is occluded 1.5 cm proximal. There is moderate stenosis within the remainder of the SMA. There is moderate stenosis at the origin the celiac axis and inferior mesenteric artery. IMPRESSION: 1. Fluid-filled loops of small and large bowel seen throughout the abdomen. Some of these loops of large and small bowel may demonstrate mild mucosal hyperenhancement. Therefore, this raises the possibility of a low-grade enterocolitis. 2. Occluded proximal SMA with distal reconstitution remains unchanged. There is moderate stenosis at the origins of the celiac axis and inferior mesenteric artery. Extensive atherosclerotic plaque within the abdominal aorta and branch vessels again noted. 3. Small patchy airspace opacity within the right middle lobe. This could represent a developing pneumonitis. ACT 112: Negative or not required by law. Electronically signed by: Leonard Lucia M.D. 04/07/2022 1:49 PM Hospital Course (1) Abdominal pain: Abdominal pain, SMA syndrome Patient with significant postprandial pain, currently with inadequate p.o. intake Follows with vascular, last seen 03/27/2022. CTA with moderate stenosis of celiac axis, occlusion of SMA with reconstitution, extensive aortic/common iliac/external iliac complex. She is not a candidate for endovascular intervention to mesenteric artery, pending bypass revascularization at [facility] [place]. Patient seen by cardiology 03/28/2022 for preoperative clearance for anticipated mesenteric artery bypass at [facility] [place]. At that visit was noted to be stable, but given higher surgical risk and underlying risk factors was michelle mmended for stress echo follow-up prior to procedure which remains pending Patient is anticoagulated on rivaroxaban, - CTA: 1. Fluid-filled loops of small and large bowel seen throughout the abdomen. Some of these loops of large and small bowel may demonstrate mild mucosal hyperenhancement. Therefore, this raises the possibility of a low-grade enterocolitis. 2. Occluded proximal SMA with distal reconstitution remains unchanged. There is moderate stenosis at the origins of the celiac axis and inferior mesenteric artery. Extensive atherosclerotic plaque within the abdominal aorta and branch vessels again noted. 3. Small patchy airspace opacity within the right middle lobe. This could represent a developing pneumonitis. No interval change in blood flow to SMA as noted above. Patient given supportive care, given potential for low-grade enterocolitis pathogen panel ordered (negative). Lactate WNL. - Clears as tolerated --> advanced to reg for lunch on 04/08 - Zofran for nausea, continue PPI (as taken for GERD) - Morphine PRN - has not required any dosees - ?Mild colitis on exam, unasyn for enteric coverage-->convert to Augmentin upon dc to complete course (2) Anemia: (3) COPD (chronic obstructive pulmonary disease): - Stable - Continue inhalers (4) Atrial fibrillation: Permanent atrial fibrillation Rate controlled, continue diltiazem Continue rivaroxaban anticoagulation Plan Pt tolerated diet advancement for lunch today with exacerbation of abdominal pain. Medically stable for dc home today on course of Augmentin (to start this evening) in order to ensure that she gets to her consult with vascular surgery at [facility] [place] on 04/09. Plan d/w Dr. Goddard who is in agreement. Total Time Total Time Spent Total Time Spent (In Minutes): <30 minutes Discharge Plan Discharge Items Patient Disposition: Home - Self-Care Reason For Visit: ABDOMINAL PAIN, SMA SYNDROME Discharge Diagnosis: abdominal pain Activity: Resume your previous activity Non-emergency contact: Primary Care Provider and Specialist Call non-emergency contact if: you have any medication questions Follow-up/Referrals: Carlton Mendez III, CRNP [Primary Care Provider] - Diet: Regular Diet Texture: Easy to Chew Addtl Attending Provider Instructions: You were hospitalized with abdominal pain which is felt to be related to you narrowing of one of the arteries in your stomach. You have an appointment at [facility] to see a vascular surgeon tomorrow 04/09. It will be important that you keep this appointment so your surgery is not delayed. Since your abdominal pain has subsided, you will be discharged home on a course of antibiotics to cover for possible infection that is causing inflammation in your colon. You will be discharged home on Augmentin 875-125mg which you will take twice a day. You can crush this and take it in applesauce if it is easier for you to swallow. Your next dose is due on 04/08 with dinner. Please complete the course and do not leave any pills left over. You can use Tylenol as needed for your pain. It is recommended that you follow up with your primary care provider within 1 week of discharge from the hospital. If you have any questions or concerns following your discharge, feel free to contact the nonemergency number listed on your discharge paperwork. In the event of a medical emergency, call 911. Pending Studies at Discharge: No Stand-Alone Forms: [facility], Smoking Cessation Medications and DC Order Prescriptions: New amoxicillin-pot clavulanate 875-125 mg tablet 1 tab PO BID Qty: 19 0RF Continued benazepril 20 mg tablet 40 mg PO QPM Qty: 180 3RF ipratropium-albuterol 0.5 mg-3 mg(2.5 mg base)/3 mL solution for nebulization 3 ml inhalation BID PRN (Reason: shortness of breath or wheezing) Qty: 15 1RF Rx Instructions: INHALE 3 ML INHALATION TWICE A DAY NEEDED FOR SHORTNESS OF BREATH OR WHEEZING methimazole 5 mg tablet 5 mg PO QAM 90 Days Qty: 90 1RF Trelegy Ellipta 100-62.5-25 mcg blister with device 1 inh inhalation DAILY Qty: 60 2RF Xarelto 20 mg tablet 20 mg PO QPM Qty: 90 1RF Rx Instructions: TAKE 1 TABLET BY MOUTH EVERY DAY IN THE EVENING ferrous sulfate [Iron (ferrous sulfate)] 325 mg (65 mg iron) tablet 325 mg PO QAM Qty: 90 1RF atorvastatin 10 mg tablet 10 mg PO QPM Qty: 90 1RF dicyclomine 10 mg capsule 10 mg PO QID 30 Days Qty: 120 0RF pantoprazole 40 mg tablet,delayed release (DR/EC) 40 mg PO BID Qty: 180 3RF albuterol sulfate [Ventolin HFA] 90 mcg/actuation HFA aerosol inhaler 2 puff INHALATION QID PRN (Reason: Shortness Of Breath Or Wheezing) Qty: 8.5 1RF latanoprost [Xalatan] 0.005 % drops 1 drp OPB HS diltiazem HCl 240 mg capsule,extended release 24hr 240 mg PO QAM Rx Instructions: TAKE 1 CAPSULE BY MOUTH EVERY DAY tramadol 50 mg tablet 50 mg PO Q12 PRN (Reason: Pain) Discharge Orders: Discharge Order (Routine); Ordered 04/08/22 Ordered By: Martha Mcguire Admission Data Admit Date/Time: 04/07/22 15:17 Attending Provider: Anibal Goddard Admit Provider: Corwin Elise Primary Care Provider: Carlton Mendez III Other Providers: Corwin Elise Other Interventions: Discharge Summary Assessment (RN) Last Done: 04/08/22 13:13 Supervising Physician Co-Signing Physician Notes I supervised Martha Mcguire PA-C on the care of this patient. Patient was admitted in last 24 hours, as such I did not see the patient myself. The plan is as written in her note except for any following changes/exceptions: None Coding Level of Care Code 88145 OBS Care - Discharge Diagnoses Abdominal pain R10.9 Anemia D64.9 COPD (chronic obstructive pulmonary disease) J44.9 COPD type: unspecified COPD Atrial fibrillation I48.11 Atrial fibrillation type: longstanding persistent
--- NOTE | 2022-04-25 06:59 | Coding Query ---
A supporting diagnosis is required for the test/procedure performed on this patient in order for us to be reimbursed by the patient's insurance. Please provide a supporting diagnosis for the following test/procedure listed below next to the test name along with your signature. *If there is no additional diagnosis for this patient that would support the following test/procedure please document that below next to the test/procedure. Test(s)/Procedure(s) that require a supporting diagnosis: * 24381 GI GASTROINTESTINAL PANEL DIAGNOSIS: DATE OF SERVICE: 04/07/22 ICD10 - R.19.7 Diarrhea - R19.4 Change in bowel habit - R10.9 Abdominal Pain Provider Signature: Corwin Elise IV Date: 05/02/22 Thank you Zana Robles [facility] Information Management Once completed, please kindly fax back to [phone] For questions please call [phone] [facility]
== END 2022-04-08 14:02 | disposition home or self-care (01) ==
LOC: 3E 11:05 → ED 11:05 → SUATTDRO 15:17 → 3E 16:41

== ENCOUNTER 2022-06-08 15:10 | Observation (INO) ==
--- NOTE | 2022-06-08 15:29 | ED Triage Note ---
Date of Service June 08, 2022 History of Present Illness This patient was briefly evaluated while in triage. An abbreviated physical exam was performed. This patient is a 82-year-old Female with past medical history of SMA stenosis who presents to the ED for evaluation of vomiting and epigastric pain. Physical Exam VITALS: Vitals are noted on the nurse's note and reviewed by myself. GENERAL: This is an 82-year-old female, in no acute distress, sitting up in a chair. HEART: Regular rate and rhythm without murmurs gallops or rubs. LUNGS: Clear to auscultation bilaterally without wheezes, rales or rhonchi. ABDOMEN: Positive bowel sounds x 4. Soft, tenderness in the periumbilical region. NEURO: Patient was alert and oriented to person place and time. Initial orders for labs and / or imaging were placed and patient was placed in the waiting area until a bed is available. Please see further documentation for the full ED course.
[2022-06-08 17:31] LABS: Basophils # (auto) 0.05 K/uL (0-0.2); Basophils % (auto) 0.3 %; Eosinophils # (auto) 0.08 K/uL (0-0.50); Eosinophils % (auto) 0.4 %; Hematocrit (blood only) 36.6 % (34.1-44.9); Hemoglobin 11.6 g/dl (12.0-16.0); Immature Granulocytes # (auto) 0.12 K/uL (0.00-0.02); Immature Granulocytes % (auto) 0.6 %; Lymphocytes # (auto) 1.42 K/uL (1.2-3.4); Lymphocytes % (auto) 7.3 %; Mean Corpuscular Hemoglobin 27.2 pg (25.0-34.0); Mean Corpuscular Hgb Conc 31.7 g/dL (32.0-36.0); Mean Corpuscular Volume 85.9 fL (80.0-100.0); Monocytes # (auto) 1.48 K/uL (0.24-0.82); Monocytes % (auto) 7.6 %; Neutrophils # (auto) 16.24 K/uL (1.4-6.5); Neutrophils % (auto) 83.8 %; Platelet Count 258 K/uL (130-400); RDW Coefficient of Variation 15.8 % (11.5-14.5); RDW Standard Deviation 49.2 fL (36.4-46.3); Red Blood Count 4.26 M/uL (3.93-5.22); White Blood Count 19.39 K/ul (4.8-10.8)
[2022-06-08 17:49] LABS: Albumin Level 3.5 gm/dl (3.4-5.0); BUN Creatinine Ratio 20.9 (10-20); Bilirubin,Total 0.9 mg/dl (0.2-1.0); Calcium 7.5 mg/dl (8.5-10.1); Creatinine Clr Calc Pharmacy 34.1 ml/min; Est GFR (African American) 69.1 ml/min; Est GFR (Non-African American) 59.6 ml/min; Globulin 3.5 gm/dl (2.5-4.0); Potassium 3.2 mmol/L (3.5-5.1)
--- NOTE | 2022-06-08 18:55 | XRay Report ---
XR abdomen 2V w PA chest HISTORY: 82 years-old Female Abdominal pain, vomiting acute chest and abdominal pain with nausea and vomiting COMPARISON: [facility] June 05, 2022 TECHNIQUE: AP view of the chest with upright and supine views of the abdomen FINDINGS: Cardiomediastinal and hilar silhouettes are within normal limits. Atherosclerosis of the aorta. No pn eumothorax, pleural effusion, airspace consolidation or overt pulmonary edema. Bones of the chest galen ear grossly intact. Cholecystectomy. Nonobstructive bowel gas pattern. No urolith identified. No pneu matosis or pneumoperitoneum. Lumbar levoscoliosis with degenerative changes of the spine, pelvis and hips. IMPRESSION: 1. No acute processes of the chest. 2. Nonobstructive bowel gas pattern. ACT 112: Negative or not required by law. The above report was generated using voice recognition software. It may contain grammatical, syntax o r spelling errors. Electronically signed by: Yuval Guardado M.D. 06/08/2022 6:54 PM
[2022-06-08] MEDS ORDERED: FAMOTIDINE 20MG IV PUSH 20 MG/5 ML SYR IV STA (19:34)
[2022-06-08] MEDS ORDERED: SODIUM CHLORIDE 0.9% 1000ML 1,000 ML IV ONE (19:34)
[2022-06-08] MEDS ORDERED: ONDANSETRON INJ 2 MG/ML 2 ML VIAL IV STA (19:34)
[2022-06-08] MEDS ORDERED: OPTIRAY 320 500ml IV ONE (20:40)
--- NOTE | 2022-06-08 21:03 | CT Scan Report ---
CT angio abdomen pelvis w con CLINICAL HISTORY: 82 years-old Female with ischemic bowel acute generalized abdominal pain with na usea, vomiting and diarrhea COMPARISON STUDY: CT abdomen pelvis June 02, 2022, CTA of 04/07/2022, 03/24/2022, 03/06/2022 TECHNIQUE: Following the IV administration of cc of Optiray, CT angiogram of the abdomen and pelvis w as performed from the lung bases the proximal femora. Images are reviewed in the axial, sagittal, and coronal planes. 3-D MIPS images are created and assessed. All measurements were obtained according t o NASCET criteria. IV contrast was administered without complication. A dose lowering technique was utilized adhering to the principles of ALARA. CT DOSE: 244.92 mGy.cm FINDINGS: CTA: Extensive atherosclerosis of the aorta with mid abdominal aortic ectasia measuring up to 2.4 cm. 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 Moderate stenosis at the origins of the celiac trunk and inferior mesenteric artery redemonstrated. No high-grade stenosis identified involving the renal arteries. The iliac and imaged femoral arteries appear patent. CT ABDOMEN/PELVIS: Heart is upper limits of normal in size. Clear lung bases. No pneumatosis or pneumoperitoneum. The un enhanced spleen, mildly atrophic pancreas and right adrenal gland are unremarkable. Stable likely bradly ign 1.8 cm left adrenal gland nodule. Cholecystectomy. Stable 2.6 cm probable cyst of the left hepati c lobe. Cholecystectomy. Bilateral renal vascular calcifications are again noted. 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 Combination of bilateral simple and complex renal cysts redemons trated. No renal or ureteral calculi or hydronephrosis. Urinary bladder wall thickening with partial distention. There is no lymphadenopathy. Colonic diverticulosis. Scattered small and large bowel air-fluid levels is similar in appearance to the 04/07/2022 exam. A few loops of small bowel within the left midabdomen demonstrate wall thickenin g. Additional wall thickening is noted involving the cecum, ascending colon and hepatic flexure with mucosal hyperemia. Noninflamed appendix. Pelvic floor relaxation. Unremarkable soft tissues. No acute fracture. Degenerative changes of the spine, pelvis and hips. IMPRESSION: 1. 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 2. Fluid-filled loops of large and small bowel wall are again noted throughout the abdomen and pelvis which is similar to prior suggestive of a nonspecific enterocolitis with diarrheal illness. Wall thi ckening of the ascending colon and hepatic flexure is new compared to the prior study. 3. Additional findings as above. ACT 112: Negative or not required by law. The above report was generated using voice recognition software. It may contain grammatical, syntax o r spelling errors. Electronically signed by: Yuval Guardado M.D. 06/08/2022 9:01 PM
[2022-06-08 21:33] LABS: Appearance Urine Clear (Clear); Bacteria Urine Automated Negative (Negative); Bilirubin Urine Negative (Negative); Blood Urine Negative (Negative); Color Urine Yellow; Epithelial Cell Urine Auto >30 /lpf (0-5); Glucose Urine UA Negative (Negative); Ketones Urine 1+ (Negative); Leukocyte Esterase Urine Negative (Negative); Nitrite Urine Negative (Negative); Protein Urine 1+ (Negative); RBC Urine Automated 0-4 /hpf (0-4); Specific Gravity Urine 1.031 (1.000-1.030); Urobilinogen Urine Negative (Negative)
[2022-06-08 22:47] LABS: Adenovirus PCR Not Detected (NotDetected); Bordetella parapertussis PCR Not Detected (NotDetected); Bordetella pertussis PCR Not Detected (NotDetected); Chlamydia pneumoniae PCR Not Detected (NotDetected); Coronavirus 229E PCR Not Detected (NotDetected); Coronavirus CoV-2 (COVID19)PCR Not Detected (NotDetected); Coronavirus HKU1 PCR Not Detected (NotDetected); Coronavirus NL63 PCR Not Detected (NotDetected); Human Metapneumovirus PCR Not Detected (NotDetected); Influenza A PCR Not Detected (NotDetected); Influenza B PCR Not Detected (NotDetected); Mycoplasma pneumoniae PCR Not Detected (NotDetected); Parainfluenza Virus 1 PCR Not Detected (NotDetected); Parainfluenza Virus 2 PCR Not Detected (NotDetected); Parainfluenza Virus 3 PCR Not Detected (NotDetected); Parainfluenza Virus 4 PCR Not Detected (NotDetected); Respiratory Syncytial VirusPCR Not Detected (NotDetected); Rhinovirus/Enterovirus PCR Not Detected (NotDetected)
[2022-06-08 23:07] LABS: Coronavirus OC43PCR DETECTED (NotDetected)
[2022-06-08 23:27] LABS: Adenovirus F 40/41 PCR Not Detected (NotDetected); Astrovirus PCR Not Detected (NotDetected); Campylobacter PCR Not Detected (NotDetected); Cryptosporidium PCR Not Detected (NotDetected); Cyclospora cayetanensis PCR Not Detected (NotDetected); Entamoeba histolytica PCR Not Detected (NotDetected); Enteroaggregative E.coli(EAEC) Not Detected (NotDetected); Enteropathogenic E.coli (EPEC) Not Detected (NotDetected); Enterotoxigenic E.coli (ETEC) Not Detected (NotDetected); Giardia lamblia PCR Not Detected (NotDetected); Norovirus GI/GII PCR Not Detected (NotDetected); Plesiomonas shigelloides PCR Not Detected (NotDetected); Rotavirus A PCR Not Detected (NotDetected); Salmonella PCR Not Detected (NotDetected); Sapovirus PCR Not Detected (NotDetected); Shiga-like Toxin E.coli (STEC) Not Detected (NotDetected); Shigella/Enteroinvasive E.coli Not Detected (NotDetected); Vibrio cholerae PCR Not Detected (NotDetected); Vibrio species PCR Not Detected (NotDetected); Yersinia enterocolitica PCR Not Detected (NotDetected)
--- NOTE | 2022-06-09 00:10 | History & Physical Report ---
Date of Service June 09, 2022 Assessment & Plan (1) Nausea & vomiting: Plan: 82yo female with 1 week of persistent nausea, vomiting and diarrhea as well as po intolerance. Labs are significant for leukocytosis as well as mild hypokalemia, mild dehydration based on BUN:Cr and urine SG. Etiology uncertain. CT of the abdomen with non-specific enteritis. Stool PCR is unremarkable. No obstruction. ?ischemia in setting of known occlusion of SMA - although, chronic with distal reconstitution. -C.diff pending, will follow -Check lactate with AM labs. Do not suspect acute intraabdominal ischemia -IVF, K repletion. Check Mg x 1 -Zofran PRN (2) Abdominal pain: Plan: -Continue Pepcid -Continue Carafate -Continue Protonix (3) Atrial fibrillation: Plan: Chronic. Well controlled -Continue Diltiazem -Continue Rivaroxaban (4) COPD (chronic obstructive pulmonary disease): Plan: Chronic. Stable. Mild cough. No SOB or wheeze -Albuterol PRN -DuoNeb PRN -Continue Trelegy Ellipta or formulary equivalent (5) Hypertension: Plan: Chronic. 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 Patient presents with ongoing nausea, vomiting and diarrhea. She was first seen in the ER on 06/02/22 with complaint of abdominal pain and flank pain as well as loose stools. She had a CT of the abdomen performed at that time which showed scattered small and large bowel air-fluid levels with prominent loops of bowel suggestive of a nonspecific enteritis/diarrheal illness. She was treated with IV fluids, pain medication and anti-emetics and ultimately discharged home. She returned to the ER on 06/05/22 for abdominal pain, nausea and vomiting. She had a KUB performed that was suggestive of enteritis. She was treated with Carafate and ultimately discharged home. Patient returns today with persistent abdominal pain. The pain is intermittent, located in the epigastric region as well as periumbilical. She reports fairly constant discomfort after eating. She continues to have nausea and non-bloody/non-bilious emesis and po intolerance. She has not been able to eat anything for the last several days. Also with multiple episodes of watery diarrhea. Diarrhea is not associate with PO intake. She has episodes at night as well as incontinence. Patient denies sick contacts. No recent travel. No ingestion of uncooked/undercooked food. Patient drinks bottled water. In the ER she is afebrile, HD stable, NAD. She has persistent nausea. Trialed on some sips of water and crackers and vomited Allergies Allergy/AdvReac Type Severity Reaction Status Date / Time adhesive tape AdvReac Intermediate PULLS SKIN Verified 06/08/22 22:06 OFF Home Medications Medication Instructions Recorded Confirmed Type latanoprost 0.005 % eye drops 1 drp OPB HS 11/20/18 06/08/22 History (Xalatan) pantoprazole 40 mg tablet,delayed 40 mg PO BID #180 tabs 07/17/21 06/08/22 Rx release ipratropium 0.5 mg-albuterol 3 mg 3 ml inhalation BID PRN shortness 08/24/21 06/08/22 Rx (2.5 mg base)/3 mL nebulization of breath or wheezing #15 mL soln rivaroxaban 20 mg tablet (Xarelto) 20 mg PO QPM #90 tabs 01/16/22 06/08/22 Rx ferrous sulfate 325 mg (65 mg 325 mg PO QAM #90 tabs 01/31/22 06/08/22 Rx iron) tablet (Iron (ferrous sulfate)) albuterol sulfate 90 mcg/actuation 2 puff inhalation QID PRN 02/22/22 06/08/22 Rx aerosol inhaler (Ventolin HFA) Shortness Of Breath Or Wheezing #8.5 grams atorvastatin 10 mg tablet 10 mg PO QPM #90 tabs 03/05/22 06/08/22 Rx diltiazem HCl 240 mg 240 mg PO QAM 03/24/22 06/08/22 History capsule,extended release 24 hr fluticasone fur. 100 mcg-umeclid 1 inh inhalation DAILY #60 ea 04/23/22 06/08/22 Rx 62.5 mcg-vilant 25 mcg inhalat.powder (Trelegy Ellipta) benazepril 20 mg tablet 40 mg PO QPM #180 tabs 04/25/22 06/08/22 Rx tramadol 50 mg tablet 50 mg PO Q12 PRN Pain #60 tabs 05/14/22 06/08/22 Rx oxycodone 5 mg tablet 5 mg PO Q6H PRN pain #15 tabs 06/02/22 06/08/22 Rx famotidine 20 mg tablet 20 mg PO BID #20 tabs 06/05/22 06/08/22 Rx methimazole 5 mg tablet 5 mg PO DAILYBB 06/05/22 06/08/22 History ondansetron 4 mg disintegrating 4 mg PO Q6H PRN nausea and 06/05/22 06/08/22 Rx tablet vomiting #14 tabs sucralfate 100 mg/mL oral 10 ml PO QID #420 mL 06/05/22 06/08/22 Rx suspension (Carafate) Past Med/Surg History Medical History Acid reflux Adrenal nodule Atrial fibrillation Dx 4-5 years ago; on xarelto; hx cardioversion; follows with Dr. Pat COPD (chronic obstructive pulmonary disease) COHN (dyspnea on exertion) Glaucoma History of uterine cancer dx > 5 years; treated surgically HLD (hyperlipidemia) Hypertension Hyperthyroidism Poor historian Pulmonary nodules Vocal cord paralysis, unilateral complete Surgical History History of anesthesia reaction SLOW TO WAKE UP History of cardioversion History of cataract surgery RT/LEFT History of colonoscopy History of endoscopy History of esophagogastroduodenoscopy (EGD) History of total abdominal hysterectomy and bilateral salpingo-oophorectomy S/P cholecystectomy Family History Daughter Breast cancer Mother Cancer Uterine cancer Father Heart disease Sister Family history of diabetes mellitus Brother Family history of diabetes mellitus Aunt Family history of diabetes mellitus Aunt Family history of diabetes mellitus Other Family history non-contributory Hypertension No family history of adverse response to anesthesia Denies family history of Colon cancer Ovarian cancer Prostate cancer Myocardial infarction Social History Smoking Status: Former smoker Tobacco Type: Cigarettes Second Hand Exposure: No; Hx Alcohol Use: No Hx Substance Use: No Preferred Language: [place] Communication Ability: Effective Visual Impairment: No Limitations Hearing Ability: Normal Supervisor Liquid Yeast Required: No Beliefs That Will Affect Care: None marital status: / Current Living Situation: Alone current occupational status: retired How many Children do You have: 3 Feels Safe at Home: Yes Childhood Exposure to Second-Hand Smoke: Yes caffeine: Yes during the past year weight has: remained stable Dental Care, Regularly: No Physical Activity Frequency: Does not Exercise Seatbelt Use: always Sunscreen Use: Yes Assistive Devices: Nebulizer Review of Systems Review of Systems: All systems reviewed & are unremarkable except as noted in HPI & below Physical Exam Physical Exam: General: patient resting comfortably, NAD, non-toxic in appearance, AA&O x 4 Skin: warm, dry, intact, no rashes or lesions HEENT: NC/AT, PERRL, EOMI, anicteric sclera, conjunctiva without injection, external ear normal to inspection and nontender, nares patent, dry mucus me mbranes, dentition intact, no oropharyngeal lesions, neck supple, trachea midline, no LAD, no thyromegaly, no JVD Heart: +S1/S2, regular, no m/r/g Lungs: equal air entry bilaterally, no rales/rhonchi/wheezes Abd: +BS, soft, ND, tenderness in the epigastric area, no rebound/guarding or peritonitis, no masses/organomegaly/ascites Ext: warm, 2+ pulses in UE/LE bilaterally, no clubbing/cyanosis or edema Neuro: nonfocal, patient AA&O x 4, speech intact, no facial droop, moving all extremities on command with equal strength 5/5 Results & Data Results & Data ([facility]) Vital Signs (Past 12 Hours) Vital Signs Temp Pulse Resp BP Pulse Ox O2 Del Method 06/08/22 23:00 77 12 97 06/08/22 23:00 76 18 139/57 L 96 06/08/22 22:39 123 H 22 06/08/22 21:30 78 17 96 06/08/22 21:30 115/66 06/08/22 21:00 80 14 96 06/08/22 21:00 147/64 H 06/08/22 20:30 64 15 06/08/22 20:30 142/70 H 06/08/22 20:16 71 23 06/08/22 15:24 36.8 C 107 H 20 128/70 95 Room Air Laboratory Results Laboratory Results WBC 19.39 K/ul (4.8-10.8) H 06/08/22 17:16 RBC 4.26 M/uL (3.93-5.22) 06/08/22 17:16 Hgb 11.6 g/dl (12.0-16.0) L 06/08/22 17:16 Hct 36.6 % (34.1-44.9) 06/08/22 17:16 MCV 85.9 fL (80.0-100.0) 06/08/22 17:16 MCH 27.2 pg (25.0-34.0) 06/08/22 17:16 MCHC 31.7 g/dL (32.0-36.0) L 06/08/22 17:16 RDW Std Deviation 49.2 fL (36.4-46.3) H 06/08/22 17:16 RDW Coeff of Rosio 15.8 % (11.5-14.5) H 06/08/22 17:16 Plt Count 258 K/uL (130-400) 06/08/22 17:16 MPV 11.0 fL (9.4-12.3) 06/08/22 17:16 Immature Gran % (Auto) 0.6 % 06/08/22 17:16 Neut % (Auto) 83.8 % 06/08/22 17:16 Lymph % (Auto) 7.3 % 06/08/22 17:16 Wake % (Auto) 7.6 % 06/08/22 17:16 Eos % (Auto) 0.4 % 06/08/22 17:16 Baso % (Auto) 0.3 % 06/08/22 17:16 Neut # (Auto) 16.24 K/uL (1.4-6.5) H 06/08/22 17:16 Lymph # (Auto) 1.42 K/uL (1.2-3.4) 06/08/22 17:16 Wake # (Auto) 1.48 K/uL (0.24-0.82) H 06/08/22 17:16 Eos # (Auto) 0.08 K/uL (0-0.50) 06/08/22 17:16 Baso # (Auto) 0.05 K/uL (0-0.2) 06/08/22 17:16 Immature Gran # (Auto) 0.12 K/uL (0.00-0.02) H 06/08/22 17:16 Sodium 135 mmol/L (136-145) L 06/08/22 17:16 Potassium 3.2 mmol/L (3.5-5.1) L 06/08/22 17:16 Chloride 98 mmol/L (98-107) 06/08/22 17:16 Carbon Dioxide 24 mmol/L (21-32) 06/08/22 17:16 Anion Gap 13 (3-11) H 06/08/22 17:16 BUN 19 mg/dl (6-23) 06/08/22 17:16 Creatinine 0.91 mg/dl (0.6-1.2) 06/08/22 17:16 Est Cr Clr Drug Dosing 34.1 ml/min 06/08/22 17:16 Est GFR ( Amer) 69.1 ml/min 06/08/22 17:16 Est GFR (Non-Af Amer) 59.6 ml/min 06/08/22 17:16 BUN/Creatinine Ratio 20.9 (10-20) H 06/08/22 17:16 Glucose 92 mg/dl (70-99(Fasting)) 06/08/22 17:16 Calcium 7.5 mg/dl (8.5-10.1) L 06/08/22 17:16 Total Bilirubin 0.9 mg/dl (0.2-1.0) 06/08/22 17:16 AST 25 U/L (13-39) 06/08/22 17:16 ALT 10 U/L (7-52) 06/08/22 17:16 Alkaline Phosphatase 87 U/L (34-104) 06/08/22 17:16 Total Protein 7.0 gm/dl (6.0-8.3) 06/08/22 17:16 Albumin 3.5 gm/dl (3.4-5.0) 06/08/22 17:16 Globulin 3.5 gm/dl (2.5-4.0) 06/08/22 17:16 Albumin/Globulin Ratio 1.0 (0.9-2) 06/08/22 17:16 Lipase 4 U/L (11-82) L 06/08/22 17:16 Urine Color Yellow 06/08/22 Unknown Urine Appearance Clear (Clear) 06/08/22 Unknown Urine pH 6.0 (4.5-7.5) 06/08/22 Unknown Ur Specific [place] 1.031 (1.000-1.030) H 06/08/22 Unknown Urine Protein 1+ (Negative) H 06/08/22 Unknown Urine Glucose (UA) Negative (Negative) 06/08/22 Unknown Urine Ketones 1+ (Negative) H 06/08/22 Unknown Urine Blood Negative (Negative) 06/08/22 Unknown Urine Nitrite Negative (Negative) 06/08/22 Unknown Urine Bilirubin Negative (Negative) 06/08/22 Unknown Urine Urobilinogen Negative (Negative) 06/08/22 Unknown Ur Leukocyte Esterase Negative (Negative) 06/08/22 Unknown Urine WBC (Auto) 1-5 /hpf (0-5) 06/08/22 Unknown Urine RBC (Auto) 0-4 /hpf (0-4) 06/08/22 Unknown U Hyaline Cast (Auto) 5-10 /lpf (0-5) H 06/08/22 Unknown U Epithel Cells (Auto) >30 /lpf (0-5) H 06/08/22 Unknown Urine Bacteria (Auto) Negative (Negative) 06/08/22 Unknown Stl C. cayetanensis PCR Not Detected (NotDetected) 06/08/22 Unknown Stool Rotavirus A PCR Not Detected (NotDetected) 06/08/22 Unknown Stl Adenov F 40/41 PCR Not Detected (NotDetected) 06/08/22 Unknown Stool Astrovirus (PCR) Not Detected (NotDetected) 06/08/22 Unknown Stool Campylobacter PCR Not Detected (NotDetected) 06/08/22 Unknown Stl C. diff Tox B Gene Negative Cdiff Gene (Neg) 06/08/22 Unknown Stool Cryptosporidium PCR Not Detected (NotDetected) 06/08/22 Unknown Stl E.coli Shiga Tox PCR Not Detected (NotDetected) 06/08/22 Unknown Stl Enterotoxigenic E PCR Not Detected (NotDetected) 06/08/22 Unknown Stool EPEC (PCR) Not Detected (NotDetected) 06/08/22 Unknown Stool EAEC (PCR) Not Detected (NotDetected) 06/08/22 Unknown Stl E. histolytica PCR Not Detected (NotDetected) 06/08/22 Unknown Stool Giardia Lamblia PCR Not Detected (NotDetected) 06/08/22 Unknown Stool Salmonella PCR Not Detected (NotDetected) 06/08/22 Unknown Stool Sapovirus (PCR) Not Detected (NotDetected) 06/08/22 Unknown Stl P. shigelloides PCR Not Detected (NotDetected) 06/08/22 Unknown Stl Shigella/EIEC PCR Not Detected (NotDetected) 06/08/[address].enterocolitica PCR Not Detected (NotDetected) 06/08/22 Unknown Stool Vibrio (PCR) Not Detected (NotDetected) 06/08/22 Unknown Stl Vibrio cholerae PCR Not Detected (NotDetected) 06/08/22 Unknown Stl Norovirus GI/GII PCR Not Detected (NotDetected) 06/08/22 Unknown Adenovirus (PCR) Not Detected (NotDetected) 06/08/22 Unknown B. pertussis DNA (PCR) Not Detected (NotDetected) 06/08/22 Unknown B.parapertussis DNA PCR Not Detected (NotDetected) 06/08/22 Unknown C. pneumoniae DNA (PCR) Not Detected (NotDetected) 06/08/22 Unknown Coronavirus OC43 (PCR) DETECTED (NotDetected) A* 06/08/22 Unknown Coronavirus HKU1 (PCR) Not Detected (NotDetected) 06/08/22 Unknown Coronavirus 229E (PCR) Not Detected (NotDetected) 06/08/22 Unknown SARS-CoV-2 (PCR) Not Detected (NotDetected) 06/08/22 Unknown Coronavirus NL63 (PCR) Not Detected (NotDetected) 06/08/22 Unknown Human Metapneumovir PCR Not Detected (NotDetected) 06/08/22 Unknown Influenza Type A (PCR) Not Detected (NotDetected) 06/08/22 Unknown Influenza Type B (PCR) Not Detected (NotDetected) 06/08/22 Unknown M. pneumoniae (PCR) Not Detected (NotDetected) 06/08/22 Unknown Parainfluenza 1 (PCR) Not Detected (NotDetected) 06/08/22 Unknown Parainfluenza 2 (PCR) Not Detected (NotDetected) 06/08/22 Unknown Parainfluenza 3 (PCR) Not Detected (NotDetected) 06/08/22 Unknown Parainfluenza 4 (PCR) Not Detected (NotDetected) 06/08/22 Unknown RSV (PCR) Not Detected (NotDetected) 06/08/22 Unknown Entero/Rhino (PCR) Not Detected (NotDetected) 06/08/22 Unknown Impressions Chest/Abdomen X-ray 06/08/22 15:26 XR abdomen 2V w PA chest HISTORY: 82 years-old Female Abdominal pain, vomiting acute chest and abdominal pain with nausea and vomiting COMPARISON: KUB June 05, 2022 TECHNIQUE: AP view of the chest with upright and supine views of the abdomen FINDINGS: Cardiomediastinal and hilar silhouettes are within normal limits. Atherosclerosis of the aorta. No pneumothorax, pleural effusion, airspace consolidation or overt pulmonary edema. Bones of the chest appear grossly intact. Cholecystectomy. Nonobstructive bowel gas pattern. No urolith identified. No pneumatosis or pneumoperitoneum. Lumbar levoscoliosis with degenerative changes of the spine, pelvis and hips. IMPRESSION: 1. No acute processes of the chest. 2. Nonobstructive bowel gas pattern. ACT 112: Negative or not required by law. The above report was generated using voice recognition software. It may contain grammatical, syntax or spelling errors. Electronically signed by: Yuval Guardado M.D. 06/08/2022 6:54 PM Abdomen/Pelvis CTA 06/08/22 19:41 CT angio abdomen pelvis w con CLINICAL HISTORY: 82 years-old Female with ischemic bowel acute generalized abdominal pain with nausea, vomiting and diarrhea COMPARISON STUDY: CT abdomen pelvis June 02, 2022, CTA of 04/07/2022, 03/24/2022, 03/06/2022 TECHNIQUE: Following the IV administration of cc of Optiray, CT angiogram of the abdomen and pelvis was performed from the lung bases the proximal femora. Images are reviewed in the axial, sagittal, and coronal planes. 3-D MIPS images are created and assessed. All measurements were obtained according to NASCET criteria. IV contrast was administered without complication. A dose lowering technique was utilized adhering to the principles of ALARA. CT DOSE: 244.92 mGy.cm FINDINGS: CTA: Extensive atherosclerosis of the aorta with mid abdominal aortic ectasia measuring up to 2.4 cm. 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 Moderate stenosis at the origins of the celiac trunk and inferior mesenteric artery redemonstrated. No high-grade stenosis identified involving the renal arteries. The iliac and imaged femoral arteries appear patent. CT ABDOMEN/PELVIS: Heart is upper limits of normal in size. Clear lung bases. No pneumatosis or pneumoperitoneum. The unenhanced spleen, mildly atrophic pancreas and right adrenal gland are unremarkable. Stable likely benign 1.8 cm left adrenal gland nodule. Cholecystectomy. Stable 2.6 cm probable cyst of the left hepatic lobe. Cholecystectomy. Bilateral renal vascular calcifications are again noted. 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 Combination of bilateral simple and complex renal cysts redemonstrated. No renal or ureteral calculi or hydronephrosis. Urinary bladder wall thickening with partial distention. There is no lymphadenopathy. Colonic diverticulosis. Scattered small and large bowel air-fluid levels is similar in appearance to the 04/07/2022 exam. A few loops of small bowel within the left midabdomen demonstrate wall thickening. Additional wall thickening is noted involving the cecum, ascending colon and hepatic flexure with mucosal hyperemia. Noninflamed appendix. Pelvic floor relaxation. Unremarkable soft tissues. No acute fracture. Degenerative changes of the spine, pelvis and hips. IMPRESSION: 1. 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 2. Fluid-filled loops of large and small bowel wall are again noted throughout the abdomen and pelvis which is similar to prior suggestive of a nonspecific enterocolitis with diarrheal illness. Wall thickening of the ascending colon and hepatic flexure is new compared to the prior study. 3. Additional findings as above. ACT 112: Negative or not required by law. The above report was generated using voice recognition software. It may contain grammatical, syntax or spelling errors. Electronically signed by: Yuval Guardado M.D. 06/08/2022 9:01 PM PG Care Time/CCT Total # of Minutes Spent Total Time Spent with Patient: Total time spent is greater than 50% in coordination of care (as documented) at patient's floor/unit and/or counseling patient: Coding Level of Care Code 37786 INT INP/OBS CARE 2/55MIN Diagnoses Nausea & vomiting R11.2 Vomiting type: unspecified Abdominal pain R10.32 Abdominal location: left lower quadrant Atrial fibrillation I48.11 Atrial fibrillation type: longstanding persistent COPD (chronic obstructive pulmonary disease) J44.9 COPD type: unspecified COPD Hypertension I10 Hypertension type: essential hypertension Hyperthyroidism E05.90 (1) Atrial fibrillation Atrial fibrillation type: longstanding persistent Qualified Code(s): I48.11 - Longstanding persistent atrial fibrillation (2) COPD (chronic obstructive pulmonary disease) COPD type: unspecified COPD Qualified Code(s): J44.9 - Chronic obstructive pulmonary disease, unspecified (3) Nausea & vomiting Vomiting type: unspecified Qualified Code(s): R11.2 - Nausea with vomiting, unspecified (4) Abdominal pain Abdominal location: left lower quadrant Qualified Code(s): R10.32 - Left lower quadrant pain (5) Hypertension Hypertension type: essential hypertension Qualified Code(s): I10 - Essential (primary) hypertension
--- NOTE | 2022-06-09 00:49 | Emergency Department Note ---
Impression & Plan Gastroenteritis, Epigastric abdominal pain, Coronavirus infection, unspecified, Leukocytosis ED Provider Note NAME: LOGAN MARCELINO AGE: 82 SEX: F ARRIVES VIA: Walk-In INFORMANT: Patient ED PROVIDER(S): Ryan Coleman MD CHIEF COMPLAINT: Abdominal pain, n/v/d. PLAN: Disposition: Admit MEDICAL DECISION MAKING: The patient is a pleasant 82-year-old woman with a past medical history of atrial fibrillation on Xarelto, hypertension, hyperlipidemia, SMA stenosis who presents to the emergency department for evaluation of abdominal pain which has been ongoing abdominal pain with nausea, vomiting and diarrhea in the setting of being seen emergency department for the same symptoms on 06/05 seen by this provider and 06/02 as well where she had unchanged CT imaging. The patient has had numerous emergency department visits as well for similar symptoms over the past [address] imaging including CTA and CT of the abdomen pelvis which have remained stable. CTA imaging has repeatedly shown SMA stenosis with distal reconstitution. Patient reports she has a scheduled vascular procedure next week to address this. Of note, the patient did arrive to emergency department during time of high volume, acuity and prolonged emergency department waiting times. Critical pathways initiated from triage. On my evaluation the patient is fatigued appearing, uncomfortable but no acute distress, afebrile stable vital signs. She appears clinically dry. She has mild epigastric discomfort without discrete tenderness. WBC is 19.3K nonspecific with neutrophil predominance. Chemistry without metabolic acidosis. Potassium 3.2 and electrolytes otherwise unremarkable. LFTs unremarkable. Lipase not elevated. UA without evidence of infection. Stool C. difficile was negative. Bio fire stool studies also negative. Respiratory viral panel was performed and was positive for coronavirus OC 43 ([id number]). CT of the abdomen pelvis was performed and was unchanged from prior with similar reviewed SMA stenosis with distal reconstitution and otherwise evidence of enterocolitis. Upon evaluation patient reported some improvement after treatment with IV fluid hydration, APAP, Pepcid and Zofran. However, she still felt unable to tolerate any oral intake effectively and did prefer admission. Given her ongoing symptoms with poor oral intake with her th ird emergency department visit for similar symptoms we agreed to proceed with referral for admission. Case was discussed with Dr. Doran, [facility] hospitalist, who will evaluate the patient for admission. Triage Nursing notes reviewed and agree them. Prior medical records reviewed Vital Signs: reviewed Differential diagnosis: Gastroenteritis, food borne illness, infections, appendicitis, diverticulitis, inflammatory bowel disease, obstruction, GI bleed, biliary pathology, volvulus, as well as other pathologies. ER treatment provided: See below. Diagnostics interpreted by me: Cardiac Monitoring: An order for continuous cardiac monitoring was placed and demonstrated atrial fibrillation, 66 bpm, no ectopy Laboratory studies: See below Imaging studies: See below Consultation(s): Dr. Doran, [facility] hospitalist. HPI: The patient is a pleasant 82-year-old woman with a past medical history of atrial fibrillation on Xarelto, hypertension, hyperlipidemia, SMA stenosis who presents to the emergency department for evaluation of abdominal pain which has been ongoing abdominal pain with nausea, vomiting and diarrhea in the setting of being seen emergency department for the same symptoms on 06/05 seen by this provider and 06/02 as well where she had unchanged CT imaging. The patient has had numerous emergency department visits as well for similar symptoms over the past [address] imaging including CTA and CT of the abdomen pelvis which have remained stable. CTA imaging has repeatedly shown SMA stenosis with distal reconstitution. Patient reports she has a scheduled vascular procedure next week to address this. ROS: See above HPI for pertinent positives & negatives. A total of 10 systems reviewed and were otherwise negative. VITALS:See Below PHYSICAL EXAMINATION: GENERAL: Awake, alert, fatigued/uncomfortable appearing, in no distress HENT: Normocephalic, atraumatic. Oropharynx with dry mucous membranes and otherwise unremarkable. EYES: Normal conjunctiva. Sclera non-icteric. NECK: Supple. No nuchal rigidity. FROM. No JVD. RESPIRATORY: Clear to auscultation. CARDIAC: Regular rate, normal rhythm. Extremities warm and well perfused. Pulses equal. ABDOMEN: Soft, non-distended. Mild epigastric discomfort without discrete tenderness to palpation. No rebound or guarding. No masses. RECTAL: Deferred. MUSCULOSKELETAL: Chest examination reveals no tenderness. The back is symmetrical on inspection without obvious abnormality. There is no CVA tenderness to palpation. No joint edema. LOWER EXTREMITIES: Calves are equal size bilaterally and non-tender. No edema. No discoloration. NEURO: Normal sensorium. No sensory or motor deficits noted. SKIN: No rash or jaundice noted. Ryan Coleman MD Past Med/Surg History Medical History Acid reflux Adrenal nodule Atrial fibrillation Dx 4-5 years ago; on xarelto; hx cardioversion; follows with Dr. Pat COPD (chronic obstructive pulmonary disease) COHN (dyspnea on exertion) Glaucoma History of uterine cancer dx > 5 years; treated surgically HLD (hyperlipidemia) Hypertension Hyperthyroidism Poor historian Pulmonary nodules Vocal cord paralysis, unilateral complete Surgical History History of anesthesia reaction SLOW TO WAKE UP History of cardioversion History of cataract surgery RT/LEFT History of colonoscopy History of endoscopy History of esophagogastroduodenoscopy (EGD) History of total abdominal hysterectomy and bilateral salpingo-oophorectomy S/P cholecystectomy Family History Daughter Breast cancer Mother Cancer Uterine cancer Father Heart disease Sister Family history of diabetes mellitus Brother Family history of diabetes mellitus Aunt Family history of diabetes mellitus Aunt Family history of diabetes mellitus Other Family history non-contributory Hypertension No family history of adverse response to anesthesia Denies family history of Colon cancer Ovarian cancer Prostate cancer Myocardial infarction Social History Smoking Status: Former smoker Tobacco Type: Cigarettes Second Hand Exposure: No; Hx Alcohol Use: No Hx Substance Use: No Preferred Language: Albanian Communication Ability: Effective Visual Impairment: No Limitations Hearing Ability: Normal [place] Required: No Beliefs That Will Affect Care: None marital status: / Current Living Situation: Alone current occupational status: retired How many Children do You have: 3 Feels Safe at Home: Yes Childhood Exposure to Second-Hand Smoke: Yes caffeine: Yes during the past year weight has: remained stable Dental Care, Regularly: No Physical Activity Frequency: Does not Exercise Seatbelt Use: always Sunscreen Use: Yes Assistive Devices: Nebulizer Allergies Allergies Allergy/AdvReac Type Severity Reaction Status Date / Time adhesive tape AdvReac Intermediate PULLS SKIN Verified 06/08/22 22:06 OFF Home Meds Home Medications Medication Instructions Recorded Confirmed latanoprost 0.005 % eye drops 1 drp OPB HS 11/20/18 06/08/22 (Xalatan) diltiazem HCl 240 mg 240 mg PO QAM 03/24/22 06/08/22 capsule,extended release 24 hr methimazole 5 mg tablet 5 mg PO DAILYBB 06/05/22 06/08/22 Previous Rx's Medication Instructions Recorded pantoprazole 40 mg tablet,delayed 40 mg PO BID #180 tabs 07/17/21 release ipratropium 0.5 mg-albuterol 3 mg 3 ml inhalation BID PRN shortness 08/24/21 (2.5 mg base)/3 mL nebulization of breath or wheezing #15 mL soln rivaroxaban 20 mg tablet (Xarelto) 20 mg PO QPM #90 tabs 01/16/22 ferrous sulfate 325 mg (65 mg 325 mg PO QAM #90 tabs 01/31/22 iron) tablet (Iron (ferrous sulfate)) albuterol sulfate 90 mcg/actuation 2 puff inhalation QID PRN 02/22/22 aerosol inhaler (Ventolin HFA) Shortness Of Breath Or Wheezing #8.5 grams atorvastatin 10 mg tablet 10 mg PO QPM #90 tabs 03/05/22 fluticasone fur. 100 mcg-umeclid 1 inh inhalation DAILY #60 ea 04/23/22 62.5 mcg-vilant 25 mcg inhalat.powder (Trelegy Ellipta) benazepril 20 mg tablet 40 mg PO QPM #180 tabs 04/25/22 tramadol 50 mg tablet 50 mg PO Q12 PRN Pain #60 tabs 05/14/22 oxycodone 5 mg tablet 5 mg PO Q6H PRN pain #15 tabs 06/02/22 famotidine 20 mg tablet 20 mg PO BID #20 tabs 06/05/22 ondansetron 4 mg disintegrating 4 mg PO Q6H PRN nausea and 06/05/22 tablet vomiting #14 tabs sucralfate 100 mg/mL oral 10 ml PO QID #420 mL 06/05/22 suspension (Carafate) Results & Data (ED) Vital Signs Vital Signs - 24 hr 06/08/22 15:24 06/08/22 20:16 06/08/22 20:30 Temperature 36.8 C Temperature Source Temporal Artery Scan Pulse Rate 107 H 71 Pulse Rate from SpO2 Sensor 74 Pulse Rhythm Regular Pulse Strength Normal Respiratory Rate 20 23 Respiratory Effort / Characteristics Non-Labored Spontaneous Respiratory Depth Normal Respiratory Pattern Regular Blood Pressure 128/70 142/70 H Blood Pressure Mean 89 94 Blood Pressure Position Sitting Pulse Oximetry 95 Oxygen Delivery Method Room Air Sepsis Recent Fever Within 48 Hours No Sepsis New/Unexplained Change in Mental Status No Sepsis Action Taken by Nursing No Action Required 06/08/22 20:30 06/08/22 21:00 06/08/22 21:00 Temperature Temperature Source Pulse Rate 64 80 Pulse Rate from SpO2 Sensor Pulse Rhythm Pulse Strength Respiratory Rate 15 14 Respiratory Effort / Characteristics Respiratory Depth Respiratory Pattern Blood Pressure 147/64 H Blood Pressure Mean 91 Blood Pressure Position Pulse Oximetry 96 Oxygen Delivery Method Sepsis Recent Fever Within 48 Hours Sepsis New/Unexplained Change in Mental Status Sepsis Action Taken by Nursing 06/08/22 21:30 06/08/22 21:30 06/08/22 22:39 Temperature Temperature Source Pulse Rate 78 123 H Pulse Rate from SpO2 Sensor 80 Pulse Rhythm Pulse Strength Respiratory Rate 17 22 Respiratory Effort / Characteristics Respiratory Depth Respiratory Pattern Blood Pressure 115/66 Blood Pressure Mean 82 Blood Pressure Position Pulse Oximetry 96 Oxygen Delivery Method Sepsis Recent Fever Within 48 Hours Sepsis New/Unexplained Change in Mental Status Sepsis Action Taken by Nursing 06/08/22 23:00 06/08/22 23:00 Temperature Temperature Source Pulse Rate 76 77 Pulse Rate from SpO2 Sensor 85 Pulse Rhythm Pulse Strength Respiratory Rate 18 12 Respiratory Effort / Characteristics Respiratory Depth Respiratory Pattern Blood Pressure 139/57 L Blood Pressure Mean 84 Blood Pressure Position Pulse Oximetry 96 97 Oxygen Delivery Method Sepsis Recent Fever Within 48 Hours Sepsis New/Unexplained Change in Mental Status Sepsis Action Taken by Nursing Laboratory Data Attestation: I reviewed the patient's lab results. 06/08/22 17:16 06/08/22 17:16 Lab Results 06/08/22 06/08/22 06/08/22 Range/Units 17:16 17:16 Unknown WBC 19.39 H (4.8-10.8) K/ul RBC 4.26 (3.93-5.22) M/uL Hgb 11.6 L (12.0-16.0) g/dl Hct 36.6 (34.1-44.9) % MCV 85.9 (80.0-100.0) fL MCH 27.2 (25.0-34.0) pg MCHC 31.7 L (32.0-36.0) g/dL RDW Std Deviation 49.2 H (36.4-46.3) fL RDW Coeff of Rosio 15.8 H (11.5-14.5) % Plt Count 258 (130-400) K/uL MPV 11.0 (9.4-12.3) fL Immature Gran % (Auto) 0.6 % Neut % (Auto) 83.8 % Lymph % (Auto) 7.3 % Marinette % (Auto) 7.6 % Eos % (Auto) 0.4 % Baso % (Auto) 0.3 % Neut # (Auto) 16.24 H (1.4-6.5) K/uL Lymph # (Auto) 1.42 (1.2-3.4) K/uL Marinette # (Auto) 1.48 H (0.24-0.82) K/uL Eos # (Auto) 0.08 (0-0.50) K/uL Baso # (Auto) 0.05 (0-0.2) K/uL Immature Gran # (Auto) 0.12 H (0.00-0.02) K/uL Sodium 135 L (136-145) mmol/L Potassium 3.2 L (3.5-5.1) mmol/L Chloride 98 (98-107) mmol/L Carbon Dioxide 24 (21-32) mmol/L Anion Gap 13 H (3-11) BUN 19 (6-23) mg/dl Creatinine 0.91 (0.6-1.2) mg/dl Est Cr Clr Drug Dosing 34.1 ml/min Est GFR ( Amer) 69.1 ml/min Est GFR (Non-Af Amer) 59.6 ml/min BUN/Creatinine Ratio 20.9 H (10-20) Glucose 92 (70-99(Fasting)) mg/dl Calcium 7.5 L (8.5-10.1) mg/dl Total Bilirubin 0.9 (0.2-1.0) mg/dl AST 25 (13-39) U/L ALT 10 (7-52) U/L Alkaline Phosphatase 87 (34-104) U/L Total Protein 7.0 (6.0-8.3) gm/dl Albumin 3.5 (3.4-5.0) gm/dl Globulin 3.5 (2.5-4.0) gm/dl Albumin/Globulin Ratio 1.0 (0.9-2) Lipase 4 L (11-82) U/L Urine Color Urine Appearance (Clear) Urine pH (4.5-7.5) Ur Specific Washburn (1.000-1.030) Urine Protein (Negative) Urine Glucose (UA) (Negative) Urine Ketones (Negative) Urine Blood (Negative) Urine Nitrite (Negative) Urine Bilirubin (Negative) Urine Urobilinogen (Negative) Ur Leukocyte Esterase (Negative) Urine WBC (Auto) (0-5) /hpf Urine RBC (Auto) (0-4) /hpf U Hyaline Cast (Auto) (0-5) /lpf U Epithel Cells (Auto) (0-5) /lpf Urine Bacteria (Auto) (Negative) Stl C. cayetanensis PCR (NotDetected) Stool Rotavirus A PCR (NotDetected) Stl Adenov F 40/41 PCR (NotDetected) Stool Astrovirus (PCR) (NotDetected) Stool Campylobacter PCR (NotDetected) Stl C. diff Tox B Gene (Neg) Stool Cryptosporidium PCR (NotDetected) Stl E.coli Shiga Tox PCR (NotDetected) Stl Enterotoxigenic E PCR (NotDetected) Stool EPEC (PCR) (NotDetected) Stool EAEC (PCR) (NotDetected) Stl E. histolytica PCR (NotDetected) Stool Giardia Lamblia PCR (NotDetected) Stool Salmonella PCR (NotDetected) Stool Sapovirus (PCR) (NotDetected) Stl P. shigelloides PCR (NotDetected) Stl Shigella/EIEC PCR (NotDetected) St Y.enterocolitica PCR (NotDetected) Stool Vibrio (PCR) (NotDetected) Stl Vibrio cholerae PCR (NotDetected) Stl Norovirus GI/GII PCR (NotDetected) Adenovirus (PCR) Not Detected (NotDetected) B. pertussis DNA (PCR) Not Detected (NotDetected) B.parapertussis DNA PCR Not Detected (NotDetected) C. pneumoniae DNA (PCR) Not Detected (NotDetected) Coronavirus OC43 (PCR) DETECTED A* (NotDetected) Coronavirus HKU1 (PCR) Not Detected (NotDetected) Coronavirus 229E (PCR) Not Detected (NotDetected) SARS-CoV-2 (PCR) Not Detected (NotDetected) Coronavirus NL63 (PCR) Not Detected (NotDetected) Human Metapneumovir PCR Not Detected (NotDetected) Influenza Type A (PCR) Not Detected (NotDetected) Influenza Type B (PCR) Not Detected (NotDetected) M. pneumoniae (PCR) Not Detected (NotDetected) Parainfluenza 1 (PCR) Not Detected (NotDetected) Parainfluenza 2 (PCR) Not Detected (NotDetected) Parainfluenza 3 (PCR) Not Detected (NotDetected) Parainfluenza 4 (PCR) Not Detected (NotDetected) RSV (PCR) Not Detected (NotDetected) Entero/Rhino (PCR) Not Detected (NotDetected) 06/08/22 06/08/22 06/08/22 Range/Units Unknown Unknown Unknown WBC (4.8-10.8) K/ul RBC (3.93-5.22) M/uL Hgb (12.0-16.0) g/dl Hct (34.1-44.9) % MCV (80.0-100.0) fL MCH (25.0-34.0) pg MCHC (32.0-36.0) g/dL RDW Std Deviation (36.4-46.3) fL RDW Coeff of Rosio (11.5-14.5) % Plt Count (130-400) K/uL MPV (9.4-12.3) fL Immature Gran % (Auto) % Neut % (Auto) % Lymph % (Auto) % Marinette % (Auto) % Eos % (Auto) % Baso % (Auto) % Neut # (Auto) (1.4-6.5) K/uL Lymph # (Auto) (1.2-3.4) K/uL Marinette # (Auto) (0.24-0.82) K/uL Eos # (Auto) (0-0.50) K/uL Baso # (Auto) (0-0.2) K/uL Immature Gran # (Auto) (0.00-0.02) K/uL Sodium (136-145) mmol/L Potassium (3.5-5.1) mmol/L Chloride (98-107) mmol/L Carbon Dioxide (21-32) mmol/L Anion Gap (3-11) BUN (6-23) mg/dl Creatinine (0.6-1.2) mg/dl Est Cr Clr Drug Dosing ml/min Est GFR ( Amer) ml/min Est GFR (Non-Af Amer) ml/min BUN/Creatinine Ratio (10-20) Glucose (70-99(Fasting)) mg/dl Calcium (8.5-10.1) mg/dl Total Bilirubin (0.2-1.0) mg/dl AST (13-39) U/L ALT (7-52) U/L Alkaline Phosphatase (34-104) U/L Total Protein (6.0-8.3) gm/dl Albumin (3.4-5.0) gm/dl Globulin (2.5-4.0) gm/dl Albumin/Globulin Ratio (0.9-2) Lipase (11-82) U/L Urine Color Yellow Urine Appearance Clear (Clear) Urine pH 6.0 (4.5-7.5) Ur Specific [place] 1.031 H (1.000-1.030) Urine Protein 1+ H (Negative) Urine Glucose (UA) Negative (Negative) Urine Ketones 1+ H (Negative) Urine Blood Negative (Negative) Urine Nitrite Negative (Negative) Urine Bilirubin Negative (Negative) Urine Urobilinogen Negative (Negative) Ur Leukocyte Esterase Negative (Negative) Urine WBC (Auto) 1-5 (0-5) /hpf Urine RBC (Auto) 0-4 (0-4) /hpf U Hyaline Cast (Auto) 5-10 H (0-5) /lpf U Epithel Cells (Auto) >30 H (0-5) /lpf Urine Bacteria (Auto) Negative (Negative) Stl C. cayetanensis PCR Not Detected (NotDetected) Stool Rotavirus A PCR Not Detected (NotDetected) Stl Adenov F 40/41 PCR Not Detected (NotDetected) Stool Astrovirus (PCR) Not Detected (NotDetected) Stool Campylobacter PCR Not Detected (NotDetected) Stl C. diff Tox B Gene Negative Cdiff Gene (Neg) Stool Cryptosporidium PCR Not Detected (NotDetected) Stl E.coli Shiga Tox PCR Not Detected (NotDetected) Stl Enterotoxigenic E PCR Not Detected (NotDetected) Stool EPEC (PCR) Not Detected (NotDetected) Stool EAEC (PCR) Not Detected (NotDetected) Stl E. histolytica PCR Not Detected (NotDetected) Stool Giardia Lamblia PCR Not Detected (NotDetected) Stool Salmonella PCR Not Detected (NotDetected) Stool Sapovirus (PCR) Not Detected (NotDetected) Stl P. shigelloides PCR Not Detected (NotDetected) Stl Shigella/EIEC PCR Not Detected (NotDetected) St Y.enterocolitica PCR Not Detected (NotDetected) Stool Vibrio (PCR) Not Detected (NotDetected) Stl Vibrio cholerae PCR Not Detected (NotDetected) Stl Norovirus GI/GII PCR Not Detected (NotDetected) Adenovirus (PCR) (NotDetected) B. pertussis DNA (PCR) (NotDetected) B.parapertussis DNA PCR (NotDetected) C. pneumoniae DNA (PCR) (NotDetected) Coronavirus OC43 (PCR) (NotDetected) Coronavirus HKU1 (PCR) (NotDetected) Coronavirus 229E (PCR) (NotDetected) SARS-CoV-2 (PCR) (NotDetected) Coronavirus NL63 (PCR) (NotDetected) Human Metapneumovir PCR (NotDetected) Influenza Type A (PCR) (NotDetected) Influenza Type B (PCR) (NotDetected) M. pneumoniae (PCR) (NotDetected) Parainfluenza 1 (PCR) (NotDetected) Parainfluenza 2 (PCR) (NotDetected) Parainfluenza 3 (PCR) (NotDetected) Parainfluenza 4 (PCR) (NotDetected) RSV (PCR) (NotDetected) Entero/Rhino (PCR) (NotDetected) Administered Medications Discontinued Medications Sodium Chloride (Nss 1000ml) 1,000 mls @ 999 mls/hr IV .Q1H1M ONE Stop: 06/08/22 20:34 Last Infusion: 06/08/22 23:15 Dose: 0 mls/hr Documented By: Admin: 06/08/22 20:12 Dose: 999 mls/hr Documented By: RICARDO Famotidine (Pepcid 20mg Iv Push) 20 mg in 5 mls @ 2.5 mls/min IV NOW STA Stop: 06/08/22 19:35 Last Admin: 06/08/22 20:12 Dose: 2.5 mls/min Documented By: RICARDO Ioversol (Optiray 320 500ml) 109 ml IV ONCE ONE Stop: 06/08/22 20:41 Last Admin: 06/08/22 20:41 Dose: 109 ml Documented By: LUPILLO Ondansetron HCl (Ondansetron Inj 2 Mg/Ml 2 Ml Vial) 4 mg IV NOW STA Stop: 06/08/22 19:35 Last Admin: 06/08/22 20:12 Dose: 4 mg Documented By: RICARDO Imaging Data Radiologist's Impression: Chest/Abdomen X-ray 06/08/22 15:26 XR abdomen 2V w PA chest HISTORY: 82 years-old Female Abdominal pain, vomiting acute chest and abdominal pain with nausea and vomiting COMPARISON: KUB June 05, 2022 TECHNIQUE: AP view of the chest with upright and supine views of the abdomen FINDINGS: Cardiomediastinal and hilar silhouettes are within normal limits. Atherosclerosis of the aorta. No pneumothorax, pleural effusion, airspace consolidation or overt pulmonary edema. Bones of the chest appear grossly i ntact. Cholecystectomy. Nonobstructive bowel gas pattern. No urolith identified. No pneumatosis or pneumoperitoneum. Lumbar levoscoliosis with degenerative changes of the spine, pelvis and hips. IMPRESSION: 1. No acute processes of the chest. 2. Nonobstructive bowel gas pattern. ACT 112: Negative or not required by law. The above report was generated using voice recognition software. It may contain grammatical, syntax or spelling errors. Electronically signed by: Yuval Guardado M.D. 06/08/2022 6:54 PM Abdomen/Pelvis CTA 06/08/22 19:41 CT angio abdomen pelvis w con CLINICAL HISTORY: 82 years-old Female with ischemic bowel acute generalized abdominal pain with nausea, vomiting and diarrhea COMPARISON STUDY: CT abdomen pelvis June 02, 2022, CTA of 04/07/2022, 03/24/2022, 03/06/2022 TECHNIQUE: Following the IV administration of cc of Optiray, CT angiogram of the abdomen and pelvis was performed from the lung bases the proximal femora. Images are reviewed in the axial, sagittal, and coronal planes. 3-D MIPS images are created and assessed. All measurements were obtained according to NASCET criteria. IV contrast was administered without complication. A dose lowering technique was utilized adhering to the principles of ALARA. CT DOSE: 244.92 mGy.cm FINDINGS: CTA: Extensive atherosclerosis of the aorta with mid abdominal aortic ectasia measuring up to 2.4 cm. 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 Moderate stenosis at the origins of the celiac trunk and inferior mesenteric artery redemonstrated. No high-grade stenosis identified involving the renal arteries. The iliac and imaged femoral arteries appear patent. CT ABDOMEN/PELVIS: Heart is upper limits of normal in size. Clear lung bases. No pneumatosis or pneumoperitoneum. The unenhanced spleen, mildly atrophic pancreas and right adrenal gland are unremarkable. Stable likely benign 1.8 cm left adrenal gland nodule. Cholecystectomy. Stable 2.6 cm probable cyst of the left hepatic lobe. Cholecystectomy. Bilateral renal vascular calcifications are again noted. 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 Combination of bilateral simple and complex renal cysts redemonstrated. No renal or ureteral calculi or hydronephrosis. Urinary bladder wall thickening with partial distention. There is no lymphadenopathy. Colonic diverticulosis. Scattered small and large bowel air-fluid levels is similar in appearance to the 04/07/2022 exam. A few loops of small bowel within the left midabdomen demonstrate wall thickening. Additional wall thickening is noted involving the cecum, ascending colon and hepatic flexure with mucosal hyperemia. Noninflamed appendix. Pelvic floor relaxation. Unremarkable soft tis sues. No acute fracture. Degenerative changes of the spine, pelvis and hips. IMPRESSION: 1. 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 2. Fluid-filled loops of large and small bowel wall are again noted throughout t he abdomen and pelvis which is similar to prior suggestive of a nonspecific enterocolitis with diarrheal illness. Wall thickening of the ascending colon and hepatic flexure is new compared to the prior study. 3. Additional findings as above. ACT 112: Negative or not required by law. The above report was generated using voice recognition software. It may contain grammatical, syntax or spelling errors. Electronically signed by: Yuval Guardado M.D. 06/08/2022 9:01 PM Discharge Plan Visit Data Chief Complaint: Vomiting Stated Complaint: unable to eat or drink, vomiting, dehydrated ED Provider: Ryan Coleman Discharge Problem: Gastroenteritis, Epigastric abdominal pain, Coronavirus infection, unspecified, Leukocytosis Forms Stand Alone Forms: [facility] Prescriptions Prescriptions: No Action ipratropium-albuterol 0.5 mg-3 mg(2.5 mg base)/3 mL solution for nebulization 3 ml inhalation BID PRN (Reason: shortness of breath or wheezing) Qty: 15 1RF Rx Instructions: INHALE 3 ML INHALATION TWICE A DAY NEEDED FOR SHORTNESS OF BREATH OR WHEEZING Xarelto 20 mg tablet 20 mg PO QPM Qty: 90 1RF Rx Instructions: TAKE 1 TABLET BY MOUTH EVERY DAY IN THE EVENING ferrous sulfate [Iron (ferrous sulfate)] 325 mg (65 mg iron) tablet 325 mg PO QAM Qty: 90 1RF atorvastatin 10 mg tablet 10 mg PO QPM Qty: 90 1RF Trelegy Ellipta 100-62.5-25 mcg blister with device 1 inh inhalation DAILY Qty: 60 2RF benazepril 20 mg tablet 40 mg PO QPM Qty: 180 3RF tramadol 50 mg tablet 50 mg PO Q12 PRN (Reason: Pain) Qty: 60 0RF pantoprazole 40 mg tablet,delayed release (DR/EC) 40 mg PO BID Qty: 180 3RF Rx Instructions: TAKES QAM & MID AFTERNOON albuterol sulfate [Ventolin HFA] 90 mcg/actuation HFA aerosol inhaler 2 puff INHALATION QID PRN (Reason: Shortness Of Breath Or Wheezing) Qty: 8.5 1RF latanoprost [Xalatan] 0.005 % drops 1 drp OPB HS diltiazem HCl 240 mg capsule,extended release 24hr 240 mg PO QAM Rx Instructions: TAKE 1 CAPSULE BY MOUTH EVERY DAY methimazole 5 mg tablet 5 mg PO DAILYBB sucralfate [Carafate] 100 mg/mL suspension 10 ml PO QID Qty: 420 0RF Rx Instructions: swish in mouth and swallow; use after food/drink: May substitute tablets as a slurry. famotidine 20 mg tablet 20 mg PO BID Qty: 20 0RF ondansetron 4 mg tablet,disintegrating 4 mg PO Q6H PRN (Reason: nausea and vomiting) Qty: 14 0RF oxycodone 5 mg tablet 5 mg PO Q6H PRN (Reason: pain) Qty: 15 0RF Referrals Referrals: Carlton Mendez III, CRNP [Primary Care Provider] -
[2022-06-09] MEDS ORDERED: traMADol HCL 50 MG TABLET PO PRN (05:57)
[2022-06-09] MEDS ORDERED: ACETAMINOPHEN 325 MG TAB PO PRN (05:57)
[2022-06-09] MEDS ORDERED: ALBUT/IPRATROP 3MG/0.5MG NEB 3 ML VIAL INH PRN (05:57)
[2022-06-09] MEDS ORDERED: ALBUTEROL HFA 8 GM INHALER INH PRN (05:57)
[2022-06-09] MEDS ORDERED: ONDANSETRON INJ 2 MG/ML 2 ML VIAL IV PRN (05:57)
[2022-06-09] MEDS ORDERED: oxyCODONE HCL IR 5 MG TAB (IMMEDIATE RELEASE) PO PRN (05:57)
[2022-06-09] MEDS: POTASSIUM CHLORIDE 20 MEQ in LACTATED RINGER'S 1,000 ML IV SCH ×2 (06:29→20:08)
[2022-06-09] MEDS: methIMAzole 5 MG TABLET PO SCH (07:20)
[2022-06-09] MEDS: MAGNESIUM SULFATE / D5W 1 GM/100 ML BAG IV SCH ×4 (08:00→15:02)
[2022-06-09 08:19] LABS: Basophils # (auto) 0.02 K/uL (0-0.2); Basophils % (auto) 0.1 %; Eosinophils # (auto) 0.03 K/uL (0-0.50); Eosinophils % (auto) 0.2 %; Hematocrit (blood only) 31.6 % (34.1-44.9); Hemoglobin 10.3 g/dl (12.0-16.0); Immature Granulocytes # (auto) 0.07 K/uL (0.00-0.02); Immature Granulocytes % (auto) 0.5 %; Lymphocytes # (auto) 1.03 K/uL (1.2-3.4); Lymphocytes % (auto) 7.2 %; Mean Corpuscular Hemoglobin 27.7 pg (25.0-34.0); Mean Corpuscular Hgb Conc 32.6 g/dL (32.0-36.0); Mean Corpuscular Volume 84.9 fL (80.0-100.0); Monocytes # (auto) 0.98 K/uL (0.24-0.82); Monocytes % (auto) 6.9 %; Neutrophils # (auto) 12.17 K/uL (1.4-6.5); Neutrophils % (auto) 85.1 %; Platelet Count 216 K/uL (130-400); RDW Coefficient of Variation 15.7 % (11.5-14.5); RDW Standard Deviation 48.6 fL (36.4-46.3); Red Blood Count 3.72 M/uL (3.93-5.22)
[2022-06-09] MEDS: dilTIAZem HCL 240 MG CAPCR PO SCH (08:40)
[2022-06-09] MEDS: PANTOprazole 40 MG TAB PO SCH ×2 (08:40→20:10)
[2022-06-09] MEDS: UMECLIDINIUM/VILANTEROL 62.5/25MCG 7 PUFFS/INHALER INH SCH (08:41)
[2022-06-09] MEDS: SUCRALFATE 1 GM/10 ML UDC PO SCH ×4 (08:41→20:08)
[2022-06-09] MEDS: FLUTICASONE FUROATE 100MCG 14 PUFFS/INHALER INH SCH (08:42)
[2022-06-09 08:55] LABS: BUN Creatinine Ratio 27.1 (10-20); Calcium 6.8 mg/dl (8.5-10.1); Est GFR (African American) 100.3 ml/min; Est GFR (Non-African American) 86.6 ml/min; Potassium 2.9 mmol/L (3.5-5.1)
[2022-06-09] MEDS ORDERED: NON-FORMULARY MEDICATION (Fluticasone-Umeclidin-Vilanter [Trelegy Ellipta] 100-62.5-25 mcg INH SCH (09:00)
[2022-06-09] MEDS: FAMOTIDINE 20 MG TAB PO SCH ×2 (09:02→20:13)
[2022-06-09] MEDS ORDERED: POTASSIUM CHLORIDE CRTAB 20 MEQ TABCR PO STA ×2 (09:08→18:43)
--- NOTE | 2022-06-09 09:12 | Hospitalist Progress Note ---
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 Fluid-filled loops of large and small bowel wall are again noted throughout the abdomen and pelvis which is similar to prior suggestive of a nonspecific enterocolitis with diarrheal illness. Wall thickening of the ascending colon and hepatic flexure is new compared to the prior study. WBC on admit elevated, no fevers reported and trending down w/o abx -- ? reactive from n/v, also + Coronovirus OC43, not COVID-19 (Asked nursing to [address] in isolation room (was w/ roommate this morning in 353-1)) K 3.2, mag checked this morning low 0.8 and K down to 2.9 K in IVF, continued ordered 60meq PO kcl x 1, 4 gm IV mag and repeating labs this afternoon /additional replacement as indicated Stool PCR NEGATIVE, cdiff negative Lactic wnl Continued inpatient stay/supportive care/electrolyte replacement HR in 80-90s, does have some palpitations reported but no SOB. If any issues, can move to monitored bed/inability to tolerate oral agents Remains on Xarelto for afib history -- see below Antiemetics prn - some nausea this morning, no further vomiting reported Supportive care (2) Coronavirus infection, unspecified: Plan: placed on isolation -- OC 43, not COVID-19 inhalers prn, incentive spirometer supplemental o2 to maintain sats -- 95% on RA (3) Gastroenteritis: Plan: supportive care, stool PCR negative PPI BID, carafate, pepcid BID (4) Hypomagnesemia: Plan: likely combination n/v, diarrhea. also PPI use. cdiff negative mag VERY LOW 0.8, IV ordered and replacement labs this afternoon/additional as needed Appears prior admit abd pain/hypokalemia and no mag checked (?w/ hx afib, RVR on admit on EKG to 110s, trop negative) Continue to monitor (5) Hypokalemia: Plan: 2.9 -- PO supplementation and IVF replacement monitor on repeat/additional replacement as needed (6) Abdominal pain: Plan: Reports improving -- probably combination stenosis and electrolyte abnormalities as above continue electrolyte replacement, PPI/H2, carafate (7) Atrial fibrillation: Plan: Chronic. AFIB/RVR to 110s on admit Mag/K replacement as above No CP, does have some SOB at times -- see above Continue diltiazem/xarelto If any issues w/ PO intake and needing IV meds, needs moved to monitored bed (8) COPD (chronic obstructive pulmonary disease): Plan: Chronic. Stable. Mild cough. +wheezing/cough on occassion Inhalers ordered, incentive spirometer no sputum production reported, 95% on RA CXR w/o acute process (9) Hypertension: Plan: Chronic. 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 Moderate stenosis at the origins of the celiac trunk and inferior mesenteric artery redemonstrated. No high-grade stenosis identified involving the renal arteries. The iliac and imaged femoral arteries appear patent. Has f/u at [facility] for surgery this upcoming week Will consult PT/OT given weakness/fatigue to ensure no needs at d/c Plan continued inpatient stay, admitted after midnight Admission and Anticipated Discharge Date Admission Date: June 09, 2022 Supervising Physician Co-Signing Physician Notes PA Supervision Note: I did not personally see or examine the patient today, but I verified all lance points of BROOK Wolf's assessment and plan with the following exceptions/additions: None Subjective BRIDGE NOTE: ADMIT AFTER MIDNIGHT evaluated this morning, feeling better than when she came in but still very weak, having some nausea but improvement in PO appetite. Was having nausea/vomiting at home, testing positive viral process but not COVID-19. Can feel some fluttering in her chest. Some shortness of breath/wheezing but improving with magnesium replacement. She has hx SMA stenosis, and has appt Jun 13 (she does not want to miss this again) for surgery/stent for treatment. Had been at home for a week dealing with GI symptoms which she thought were her chronic issues and pushing some fluids but was not able to tolerate anything on and felt like giving up and came to the hospital. Getting electrolyte replacement/will monitor labs on repeat this afternoon and order additional replacement as needed. No further diarrhea since admit, denies any blood previously in stool. Abdomen not overly tender. HR in 80-90s, afib. Does have occasional cough. Discussed with nursing supervisor plastic sheets and rec for private room at minimum Was hospitalized in January w/ abdominal pain and hypokalemia and discharged after 2 day stay, does not appear magnesium ever checked since this morning in our system since 2018. Review of Systems Review of Systems: All systems reviewed & are unremarkable except as noted in HPI & below Physical Exam Physical Exam: General: chronically ill appearing female, thin, sitting up in bed, NAD but reporting fatigue/nausea HEENT: head normocephalic, atraumatic, mm DRY, trachea midline without deviation Resp: expiratory wheezing bilateral lung martin, crackles in the bases, no respiratory distress, no cough (although reports occassional, non productive), 95% on RA CV: irregularly irregular, no significant murmur, rub or gallop, no pitting edema/calf tenderness, pulses palpable GI: +BS, soft, slight tenderness epigastric region, without guarding/rebound : no cordova MSK/Neuro: moves all extremities, no focal deficit, no confusion, strength equal bilaterally Psych; AOx3, cooperative, fatigued appearing Skin: cool, dry, increased turgor Results & Data Results & Data ([facility]) Vital Signs (Past 12 Hours) Vital Signs Temp Pulse Pulse Resp BP BP Pulse Ox 06/09/22 08:39 90 134/70 06/09/22 07:39 36.7 C 73 16 123/67 95 06/09/22 05:58 06/09/22 05:58 36.8 C 80 16 146/70 H 94 06/09/22 05:25 76 20 138/118 H 96 06/09/22 05:00 69 15 95 06/09/22 05:00 129/57 L 06/09/22 04:30 64 23 95 06/09/22 04:30 119/58 L 06/09/22 04:00 54 L 14 95 06/09/22 04:00 125/58 L 06/09/22 03:30 63 14 95 06/09/22 03:30 134/57 L 06/09/22 03:00 63 14 94 06/09/22 03:00 110/48 L 06/09/22 02:30 64 14 94 06/09/22 02:30 122/54 L 06/09/22 02:00 64 14 93 06/09/22 02:00 110/64 06/09/22 01:30 70 17 95 06/09/22 01:30 135/63 06/09/22 01:00 61 20 95 06/09/22 01:00 138/67 06/09/22 00:30 71 19 97 06/09/22 00:30 131/69 06/09/22 00:00 90 15 97 06/09/22 00:00 140/56 L 06/08/22 23:30 98 H 25 H 96 06/08/22 23:30 139/67 06/08/22 23:00 77 12 97 06/08/22 23:00 76 18 139/57 L 96 06/08/22 22:39 123 H 22 06/08/22 21:30 78 17 96 06/08/22 21:30 115/66 O2 Del Method 06/09/22 08:39 06/09/22 07:39 Room Air 06/09/22 05:58 Room Air 06/09/22 05:58 Room Air 06/09/22 05:25 Room Air 06/09/22 05:00 06/09/22 05:00 06/09/22 04:30 06/09/22 04:30 06/09/22 04:00 06/09/22 04:00 06/09/22 03:30 06/09/22 03:30 06/09/22 03:00 06/09/22 03:00 06/09/22 02:30 06/09/22 02:30 06/09/22 02:00 06/09/22 02:00 06/09/22 01:30 06/09/22 01:30 06/09/22 01:00 06/09/22 01:00 06/09/22 00:30 06/09/22 00:30 06/09/22 00:00 06/09/22 00:00 06/08/22 23:30 06/08/22 23:30 06/08/22 23:00 06/08/22 23:00 06/08/22 22:39 06/08/22 21:30 06/08/22 21:30 Laboratory Results 06/09/22 06/09/22 06/09/22 Range/Units 08:00 08:00 08:00 WBC 14.30 H (4.8-10.8) K/ul RBC 3.72 L (3.93-5.22) M/uL Hgb 10.3 L (12.0-16.0) g/dl Hct 31.6 L (34.1-44.9) % MCV 84.9 (80.0-100.0) fL MCH 27.7 (25.0-34.0) pg MCHC 32.6 (32.0-36.0) g/dL RDW Std Deviation 48.6 H (36.4-46.3) fL RDW Coeff of Rosio 15.7 H (11.5-14.5) % Plt Count 216 (130-400) K/uL MPV 11.0 (9.4-12.3) fL Immature Gran % (Auto) 0.5 % Neut % (Auto) 85.1 % Lymph % (Auto) 7.2 % [place] % (Auto) 6.9 % Eos % (Auto) 0.2 % Baso % (Auto) 0.1 % Neut # (Auto) 12.17 H (1.4-6.5) K/uL Lymph # (Auto) 1.03 L (1.2-3.4) K/uL [place] # (Auto) 0.98 H (0.24-0.82) K/uL Eos # (Auto) 0.03 (0-0.50) K/uL Baso # (Auto) 0.02 (0-0.2) K/uL Immature Gran # (Auto) 0.07 H (0.00-0.02) K/uL Sodium 138 (136-145) mmol/L Potassium 2.9 L (3.5-5.1) mmol/L Chloride 104 (98-107) mmol/L Carbon Dioxide 23 (21-32) mmol/L Anion Gap 11 (3-11) BUN 16 (6-23) mg/dl Creatinine 0.59 L D (0.6-1.2) mg/dl Est Cr Clr Drug Dosing 52.0 ml/min Est GFR ( Amer) 100.3 ml/min Est GFR (Non-Af Amer) 86.6 ml/min BUN/Creatinine Ratio 27.1 H (10-20) Glucose 84 (70-99(Fasting)) mg/dl Lactate (0.4-2.0) mmol/L Calcium 6.8 L (8.5-10.1) mg/dl Phosphorus Pending Magnesium (1.7-2.4) mg/dl Total Bilirubin (0.2-1.0) mg/dl AST (13-39) U/L ALT (7-52) U/L Alkaline Phosphatase (34-104) U/L Total Protein (6.0-8.3) gm/dl Albumin (3.4-5.0) gm/dl Globulin (2.5-4.0) gm/dl Albumin/Globulin Ratio (0.9-2) Lipase (11-82) U/L Urine Color Urine Appearance (Clear) Urine pH (4.5-7.5) Ur Specific Marshall (1.000-1.030) Urine Protein (Negative) Urine Glucose (UA) (Negative) Urine Ketones (Negative) Urine Blood (Negative) Urine Nitrite (Negative) Urine Bilirubin (Negative) Urine Urobilinogen (Negative) Ur Leukocyte Esterase (Negative) Urine WBC (Auto) (0-5) /hpf Urine RBC (Auto) (0-4) /hpf U Hyaline Cast (Auto) (0-5) /lpf U Epithel Cells (Auto) (0-5) /lpf Urine Bacteria (Auto) (Negative) Stl C. cayetanensis PCR (NotDetected) Stool Rotavirus A PCR (NotDetected) Stl Adenov F 40/41 PCR (NotDetected) Stool Astrovirus (PCR) (NotDetected) Stool Campylobacter PCR (NotDetected) Stl C. diff Tox B Gene (Neg) Stool Cryptosporidium PCR (NotDetected) Stl E.coli Shiga Tox PCR (NotDetected) Stl Enterotoxigenic E PCR (NotDetected) Stool EPEC (PCR) (NotDetected) Stool EAEC (PCR) (NotDetected) Stl E. histolytica PCR (NotDetected) Stool Giardia Lamblia PCR (NotDetected) Stool Salmonella PCR (NotDetected) Stool Sapovirus (PCR) (NotDetected) Stl P. shigelloides PCR (NotDetected) Stl Shigella/EIEC PCR (NotDetected) St Y.enterocolitica PCR (NotDetected) Stool Vibrio (PCR) (NotDetected) Stl Vibrio cholerae PCR (NotDetected) Stl Norovirus GI/GII PCR (NotDetected) Adenovirus (PCR) (NotDetected) B. pertussis DNA (PCR) (NotDetected) B.parapertussis DNA PCR (NotDetected) C. pneumoniae DNA (PCR) (NotDetected) Coronavirus OC43 (PCR) (NotDetected) Coronavirus HKU1 (PCR) (NotDetected) Coronavirus 229E (PCR) (NotDetected) SARS-CoV-2 (PCR) (NotDetected) Coronavirus NL63 (PCR) (NotDetected) Human Metapneumovir PCR (NotDetected) Influenza Type A (PCR) (NotDetected) Influenza Type B (PCR) (NotDetected) M. pneumoniae (PCR) (NotDetected) Parainfluenza 1 (PCR) (NotDetected) Parainfluenza 2 (PCR) (NotDetected) Parainfluenza 3 (PCR) (NotDetected) Parainfluenza 4 (PCR) (NotDetected) RSV (PCR) (NotDetected) Entero/Rhino (PCR) (NotDetected) 06/09/22 06/09/22 06/08/22 Range/Units 08:00 06:24 Unknown WBC (4.8-10.8) K/ul RBC (3.93-5.22) M/uL Hgb (12.0-16.0) g/dl Hct (34.1-44.9) % MCV (80.0-100.0) fL MCH (25.0-34.0) pg MCHC (32.0-36.0) g/dL RDW Std Deviation (36.4-46.3) fL RDW Coeff of Rosio (11.5-14.5) % Plt Count (130-400) K/uL MPV (9.4-12.3) fL Immature Gran % (Auto) % Neut % (Auto) % Lymph % (Auto) % [place] % (Auto) % Eos % (Auto) % Baso % (Auto) % Neut # (Auto) (1.4-6.5) K/uL Lymph # (Auto) (1.2-3.4) K/uL [place] # (Auto) (0.24-0.82) K/uL Eos # (Auto) (0-0.50) K/uL Baso # (Auto) (0-0.2) K/uL Immature Gran # (Auto) (0.00-0.02) K/uL Sodium (136-145) mmol/L Potassium (3.5-5.1) mmol/L Chloride (98-107) mmol/L Carbon Dioxide (21-32) mmol/L Anion Gap (3-11) BUN (6-23) mg/dl Creatinine (0.6-1.2) mg/dl Est Cr Clr Drug Dosing ml/min Est GFR ( Amer) ml/min Est GFR (Non-Af Amer) ml/min BUN/Creatinine Ratio (10-20) Glucose (70-99(Fasting)) mg/dl Lactate 0.9 (0.4-2.0) mmol/L Calcium (8.5-10.1) mg/dl Phosphorus Magnesium 0.8 L* (1.7-2.4) mg/dl Total Bilirubin (0.2-1.0) mg/dl AST (13-39) U/L ALT (7-52) U/L Alkaline Phosphatase (34-104) U/L Total Protein (6.0-8.3) gm/dl Albumin (3.4-5.0) gm/dl Globulin (2.5-4.0) gm/dl Albumin/Globulin Ratio (0.9-2) Lipase (11-82) U/L Urine Color Urine Appearance (Clear) Urine pH (4.5-7.5) Ur Specific Marshall (1.000-1.030) Urine Protein (Negative) Urine Glucose (UA) (Negative) Urine Ketones (Negative) Urine Blood (Negative) Urine Nitrite (Negative) Urine Bilirubin (Negative) Urine Urobilinogen (Negative) Ur Leukocyte Esterase (Negative) Urine WBC (Auto) (0-5) /hpf Urine RBC (Auto) (0-4) /hpf U Hyaline Cast (Auto) (0-5) /lpf U Epithel Cells (Auto) (0-5) /lpf Urine Bacteria (Auto) (Negative) Stl C. cayetanensis PCR Not Detected (NotDetected) Stool Rotavirus A PCR Not Detected (NotDetected) Stl Adenov F 40/41 PCR Not Detected (NotDetected) Stool Astrovirus (PCR) Not Detected (NotDetected) Stool Campylobacter PCR Not Detected (NotDetected) Stl C. diff Tox B Gene (Neg) Stool Cryptosporidium PCR Not Detected (NotDetected) Stl E.coli Shiga Tox PCR Not Detected (NotDetected) Stl Enterotoxigenic E PCR Not Detected (NotDetected) Stool EPEC (PCR) Not Detected (NotDetected) Stool EAEC (PCR) Not Detected (NotDetected) Stl E. histolytica PCR Not Detected (NotDetected) Stool Giardia Lamblia PCR Not Detected (NotDetected) Stool Salmonella PCR Not Detected (NotDetected) Stool Sapovirus (PCR) Not Detected (NotDetected) Stl P. shigelloides PCR Not Detected (NotDetected) Stl Shigella/EIEC PCR Not Detected (NotDetected) St Y.enterocolitica PCR Not Detected (NotDetected) Stool Vibrio (PCR) Not Detected (NotDetected) Stl Vibrio cholerae PCR Not Detected (NotDetected) Stl Norovirus GI/GII PCR Not Detected (NotDetected) Adenovirus (PCR) (NotDetected) B. pertussis DNA (PCR) (NotDetected) B.parapertussis DNA PCR (NotDetected) C. pneumoniae DNA (PCR) (NotDetected) Coronavirus OC43 (PCR) (NotDetected) Coronavirus HKU1 (PCR) (NotDetected) Coronavirus 229E (PCR) (NotDetected) SARS-CoV-2 (PCR) (NotDetected) Coronavirus NL63 (PCR) (NotDetected) Human Metapneumovir PCR (NotDetected) Influenza Type A (PCR) (NotDetected) Influenza Type B (PCR) (NotDetected) M. pneumoniae (PCR) (NotDetected) Parainfluenza 1 (PCR) (NotDetected) Parainfluenza 2 (PCR) (NotDetected) Parainfluenza 3 (PCR) (NotDetected) Parainfluenza 4 (PCR) (NotDetected) RSV (PCR) (NotDetected) Entero/Rhino (PCR) (NotDetected) 06/08/22 06/08/22 06/08/22 Range/Units Unknown Unknown Unknown WBC (4.8-10.8) K/ul RBC (3.93-5.22) M/uL Hgb (12.0-16.0) g/dl Hct (34.1-44.9) % MCV (80.0-100.0) fL MCH (25.0-34.0) pg MCHC (32.0-36.0) g/dL RDW Std Deviation (36.4-46.3) fL RDW Coeff of Rosio (11.5-14.5) % Plt Count (130-400) K/uL MPV (9.4-12.3) fL Immature Gran % (Auto) % Neut % (Auto) % Lymph % (Auto) % [place] % (Auto) % Eos % (Auto) % Baso % (Auto) % Neut # (Auto) (1.4-6.5) K/uL Lymph # (Auto) (1.2-3.4) K/uL [place] # (Auto) (0.24-0.82) K/uL Eos # (Auto) (0-0.50) K/uL Baso # (Auto) (0-0.2) K/uL Immature Gran # (Auto) (0.00-0.02) K/uL Sodium (136-145) mmol/L Potassium (3.5-5.1) mmol/L Chloride (98-107) mmol/L Carbon Dioxide (21-32) mmol/L Anion Gap (3-11) BUN (6-23) mg/dl Creatinine (0.6-1.2) mg/dl Est Cr Clr Drug Dosing ml/min Est GFR ( Amer) ml/min Est GFR (Non-Af Amer) ml/min BUN/Creatinine Ratio (10-20) Glucose (70-99(Fasting)) mg/dl Lactate (0.4-2.0) mmol/L Calcium (8.5-10.1) mg/dl Phosphorus Magnesium (1.7-2.4) mg/dl Total Bilirubin (0.2-1.0) mg/dl AST (13-39) U/L ALT (7-52) U/L Alkaline Phosphatase (34-104) U/L Total Protein (6.0-8.3) gm/dl Albumin (3.4-5.0) gm/dl Globulin (2.5-4.0) gm/dl Albumin/Globulin Ratio (0.9-2) Lipase (11-82) U/L Urine Color Yellow Urine Appearance Clear (Clear) Urine pH 6.0 (4.5-7.5) Ur Specific Marshall 1.031 H (1.000-1.030) Urine Protein 1+ H (Negative) Urine Glucose (UA) Negative (Negative) Urine Ketones 1+ H (Negative) Urine Blood Negative (Negative) Urine Nitrite Negative (Negative) Urine Bilirubin Negative (Negative) Urine Urobilinogen Negative (Negative) Ur Leukocyte Esterase Negative (Negative) Urine WBC (Auto) 1-5 (0-5) /hpf Urine RBC (Auto) 0-4 (0-4) /hpf U Hyaline Cast (Auto) 5-10 H (0-5) /lpf U Epithel Cells (Auto) >30 H (0-5) /lpf Urine Bacteria (Auto) Negative (Negative) Stl C. cayetanensis PCR (NotDetected) Stool Rotavirus A PCR (NotDetected) Stl Adenov F 40/41 PCR (NotDetected) Stool Astrovirus (PCR) (NotDetected) Stool Campylobacter PCR (NotDetected) Stl C. diff Tox B Gene Negative Cdiff Gene (Neg) Stool Cryptosporidium PCR (NotDetected) Stl E.coli Shiga Tox PCR (NotDetected) Stl Enterotoxigenic E PCR (NotDetected) Stool EPEC (PCR) (NotDetected) Stool EAEC (PCR) (NotDetected) Stl E. histolytica PCR (NotDetected) Stool Giardia Lamblia PCR (NotDetected) Stool Salmonella PCR (NotDetected) Stool Sapovirus (PCR) (NotDetected) Stl P. shigelloides PCR (NotDetected) Stl Shigella/EIEC PCR (NotDetected) St Y.enterocolitica PCR (NotDetected) Stool Vibrio (PCR) (NotDetected) Stl Vibrio cholerae PCR (NotDetected) Stl Norovirus GI/GII PCR (NotDetected) Adenovirus (PCR) Not Detected (NotDetected) B. pertussis DNA (PCR) Not Detected (NotDetected) B.parapertussis DNA PCR Not Detected (NotDetected) C. pneumoniae DNA (PCR) Not Detected (NotDetected) Coronavirus OC43 (PCR) DETECTED A* (NotDetected) Coronavirus HKU1 (PCR) Not Detected (NotDetected) Coronavirus 229E (PCR) Not Detected (NotDetected) SARS-CoV-2 (PCR) Not Detected (NotDetected) Coronavirus NL63 (PCR) Not Detected (NotDetected) Human Metapneumovir PCR Not Detected (NotDetected) Influenza Type A (PCR) Not Detected (NotDetected) Influenza Type B (PCR) Not Detected (NotDetected) M. pneumoniae (PCR) Not Detected (NotDetected) Parainfluenza 1 (PCR) Not Detected (NotDetected) Parainfluenza 2 (PCR) Not Detected (NotDetected) Parainfluenza 3 (PCR) Not Detected (NotDetected) Parainfluenza 4 (PCR) Not Detected (NotDetected) RSV (PCR) Not Detected (NotDetected) Entero/Rhino (PCR) Not Detected (NotDetected) 06/08/22 06/08/22 Range/Units 17:16 17:16 WBC 19.39 H (4.8-10.8) K/ul RBC 4.26 (3.93-5.22) M/uL Hgb 11.6 L (12.0-16.0) g/dl Hct 36.6 (34.1-44.9) % MCV 85.9 (80.0-100.0) fL MCH 27.2 (25.0-34.0) pg MCHC 31.7 L (32.0-36.0) g/dL RDW Std Deviation 49.2 H (36.4-46.3) fL RDW Coeff of Rosio 15.8 H (11.5-14.5) % Plt Count 258 (130-400) K/uL MPV 11.0 (9.4-12.3) fL Immature Gran % (Auto) 0.6 % Neut % (Auto) 83.8 % Lymph % (Auto) 7.3 % [place] % (Auto) 7.6 % Eos % (Auto) 0.4 % Baso % (Auto) 0.3 % Neut # (Auto) 16.24 H (1.4-6.5) K/uL Lymph # (Auto) 1.42 (1.2-3.4) K/uL [place] # (Auto) 1.48 H (0.24-0.82) K/uL Eos # (Auto) 0.08 (0-0.50) K/uL Baso # (Auto) 0.05 (0-0.2) K/uL Immature Gran # (Auto) 0.12 H (0.00-0.02) K/uL Sodium 135 L (136-145) mmol/L Potassium 3.2 L (3.5-5.1) mmol/L Chloride 98 (98-107) mmol/L Carbon Dioxide 24 (21-32) mmol/L Anion Gap 13 H (3-11) BUN 19 (6-23) mg/dl Creatinine 0.91 (0.6-1.2) mg/dl Est Cr Clr Drug Dosing 34.1 ml/min Est GFR ( Amer) 69.1 ml/min Est GFR (Non-Af Amer) 59.6 ml/min BUN/Creatinine Ratio 20.9 H (10-20) Glucose 92 (70-99(Fasting)) mg/dl Lactate (0.4-2.0) mmol/L Calcium 7.5 L (8.5-10.1) mg/dl Phosphorus Magnesium (1.7-2.4) mg/dl Total Bilirubin 0.9 (0.2-1.0) mg/dl AST 25 (13-39) U/L ALT 10 (7-52) U/L Alkaline Phosphatase 87 (34-104) U/L Total Protein 7.0 (6.0-8.3) gm/dl Albumin 3.5 (3.4-5.0) gm/dl Globulin 3.5 (2.5-4.0) gm/dl Albumin/Globulin Ratio 1.0 (0.9-2) Lipase 4 L (11-82) U/L Urine Color Urine Appearance (Clear) Urine pH (4.5-7.5) Ur Specific Marshall (1.000-1.030) Urine Protein (Negative) Urine Glucose (UA) (Negative) Urine Ketones (Negative) Urine Blood (Negative) Urine Nitrite (Negative) Urine Bilirubin (Negative) Urine Urobilinogen (Negative) Ur Leukocyte Esterase (Negative) Urine WBC (Auto) (0-5) /hpf Urine RBC (Auto) (0-4) /hpf U Hyaline Cast (Auto) (0-5) /lpf U Epithel Cells (Auto) (0-5) /lpf Urine Bacteria (Auto) (Negative) Stl C. cayetanensis PCR (NotDetected) Stool Rotavirus A PCR (NotDetected) Stl Adenov F 40/41 PCR (NotDetected) Stool Astrovirus (PCR) (NotDetected) Stool Campylobacter PCR (NotDetected) Stl C. diff Tox B Gene (Neg) Stool Cryptosporidium PCR (NotDetected) Stl E.coli Shiga Tox PCR (NotDetected) Stl Enterotoxigenic E PCR (NotDetected) Stool EPEC (PCR) (NotDetected) Stool EAEC (PCR) (NotDetected) Stl E. histolytica PCR (NotDetected) Stool Giardia Lamblia PCR (NotDetected) Stool Salmonella PCR (NotDetected) Stool Sapovirus (PCR) (NotDetected) Stl P. shigelloides PCR (NotDetected) Stl Shigella/EIEC PCR (NotDetected) St Y.enterocolitica PCR (NotDetected) Stool Vibrio (PCR) (NotDetected) Stl Vibrio cholerae PCR (NotDetected) Stl Norovirus GI/GII PCR (NotDetected) Adenovirus (PCR) (NotDetected) B. pertussis DNA (PCR) (NotDetected) B.parapertussis DNA PCR (NotDetected) C. pneumoniae DNA (PCR) (NotDetected) Coronavirus OC43 (PCR) (NotDetected) Coronavirus HKU1 (PCR) (NotDetected) Coronavirus 229E (PCR) (NotDetected) SARS-CoV-2 (PCR) (NotDetected) Coronavirus NL63 (PCR) (NotDetected) Human Metapneumovir PCR (NotDetected) Influenza Type A (PCR) (NotDetected) Influenza Type B (PCR) (NotDetected) M. pneumoniae (PCR) (NotDetected) Parainfluenza 1 (PCR) (NotDetected) Parainfluenza 2 (PCR) (NotDetected) Parainfluenza 3 (PCR) (NotDetected) Parainfluenza 4 (PCR) (NotDetected) RSV (PCR) (NotDetected) Entero/Rhino (PCR) (NotDetected) Diagnostic Findings Chest/Abdomen X-ray 06/08/22 15:26 XR abdomen 2V w PA chest HISTORY: 82 years-old Female Abdominal pain, vomiting acute chest and abdominal pain with nausea and vomiting COMPARISON: [facility] June 05, 2022 TECHNIQUE: AP view of the chest with upright and supine views of the abdomen FINDINGS: Cardiomediastinal and hilar silhouettes are within normal limits. Atherosclerosis of the aorta. No pneumothorax, pleural effusion, airspace consolidation or overt pulmonary edema. Bones of the chest appear grossly intact. Cholecystectomy. Nonobstructive bowel gas pattern. No urolith identified. No pneumatosis or pneumoperitoneum. Lumbar levoscoliosis with degenerative changes of the spine, pelvis and hips. IMPRESSION: 1. No acute processes of the chest. 2. Nonobstructive bowel gas pattern. ACT 112: Negative or not required by law. The above report was generated using voice recognition software. It may contain grammatical, syntax or spelling errors. Electronically signed by: Yuval Guardado M.D. 06/08/2022 6:54 PM Abdomen/Pelvis CTA 06/08/22 19:41 CT angio abdomen pelvis w con CLINICAL HISTORY: 82 years-old Female with ischemic bowel acute generalized abdominal pain with nausea, vomiting and diarrhea COMPARISON STUDY: CT abdomen pelvis June 02, 2022, CTA of 04/07/2022, 03/24/2022, 03/06/2022 TECHNIQUE: Following the IV administration of cc of Optiray, CT angiogram of the abdomen and pelvis was performed from the lung bases the proximal femora. Images are reviewed in the axial, sagittal, and coronal planes. 3-D MIPS images are created and assessed. All measurements were obtained according to NASCET criteria. IV contrast was administered without complication. A dose lowering technique was utilized adhering to the principles of ALARA. CT DOSE: 244.92 mGy.cm FINDINGS: CTA: Extensive atherosclerosis of the aorta with mid abdominal aortic ectasia measu ring up to 2.4 cm. 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 Moderate stenosis at the origins of the celiac trunk and inferior mesenteric artery redemonstrated. No high-grade stenosis identified involving the renal arteries. The iliac and imaged femoral arteries appear patent. CT ABDOMEN/PELVIS: Heart is upper limits of normal in size. Clear lung bases. No pneumatosis or pneumoperitoneum. The unenhanced spleen, mildly atrophic pancreas and right adrenal gland are unremarkable. Stable likely benign 1.8 cm left adrenal gland nodule. Cholecystectomy. Stable 2.6 cm probable cyst of the left hepatic lobe. Cholecystectomy. Bilateral renal vascular calcifications are again noted. 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 Combination of bilateral simpl e and complex renal cysts redemonstrated. No renal or ureteral calculi or hydronephrosis. Urinary bladder wall thickening with partial distention. There is no lymphadenopathy. Colonic diverticulosis. Scattered small and large bowel air-fluid levels is similar in appearance to the 04/07/2022 exam. A few loops of small bowel within the left midabdomen demonstrate wall thickening. Additional wall thickening is noted involving the cecum, ascending colon and hepatic flexure with mucosal hyperemia. Noninflamed appendix. Pelvic floor relaxation. Unremarkable soft tissues. No acute fracture. Degenerative changes of the spine, pelvis and hips. IMPRESSION: 1. 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 2. Fluid-filled loops of large and small bowel wall are again noted throughout the abdomen and pelvis which is similar to prior suggestive of a nonspecific enterocolitis with diarrheal illness. Wall thickening of the ascending colon and hepatic flexure is new compared to the prior study. 3. Additional findings as above. ACT 112: Negative or not required by law. The above report was generated using voice recognition software. It may contain grammatical, syntax or spelling errors. Electronically signed by: Yuval Guardado M.D. 06/08/2022 9:01 PM PG Care Time/CCT Total # of Minutes Spent Total Time Spent with Patient: Total time spent is greater than 50% in coordination of care (as documented) at patient's floor/unit and/or counseling patient: Coding Level of Care Code None Diagnoses Nausea & vomiting R11.2 Vomiting type: unspecified Coronavirus infection, unspecified B34.2 Gastroenteritis K52.9 Hypomagnesemia E83.42 Hypokalemia E87.6 Abdominal pain R10.32 Abdominal location: left lower quadrant Atrial fibrillation I48.11 Atrial fibrillation type: longstanding persistent COPD (chronic obstructive pulmonary disease) J44.9 COPD type: unspecified COPD Hypertension I10 Hypertension type: essential hypertension Hyperthyroidism E05.90 Leukocytosis D72.829 Superior mesenteric artery stenosis K55.1 (1) Atrial fibrillation Atrial fibrillation type: longstanding persistent Qualified Code(s): I48.11 - Longstanding persistent atrial fibrillation (2) COPD (chronic obstructive pulmonary disease) COPD type: unspecified COPD Qualified Code(s): J44.9 - Chronic obstructive pulmonary disease, unspecified (3) Nausea & vomiting Vomiting type: unspecified Qualified Code(s): R11.2 - Nausea with vomiting, unspecified (4) Abdominal pain Abdominal location: left lower quadrant Qualified Code(s): R10.32 - Left lower quadrant pain (5) Hypertension Hypertension type: essential hypertension Qualified Code(s): I10 - Essential (primary) hypertension
[2022-06-09] MEDS ORDERED: PIPERACILLIN/TAZOBACTAM 4.5 GM in DEXTROSE 5% 100 ML IV ONE (14:30)
[2022-06-09] MEDS: ENOXAPARIN INJ 30 MG/0.3 ML SYR SQ SCH (15:16)
[2022-06-09] MEDS: PIPERACILLIN/TAZOBACTAM 3.375 GM in DEXTROSE 5% 100 ML IV SCH (18:03)
[2022-06-09 18:33] LABS: BUN Creatinine Ratio 22.4 (10-20); Calcium 7.2 mg/dl (8.5-10.1); Creatinine Clr Calc Pharmacy 52.9 ml/min; Est GFR (African American) 100.9 ml/min; Est GFR (Non-African American) 87.1 ml/min; Potassium 3.4 mmol/L (3.5-5.1)
[2022-06-09] MEDS: ENALAPRIL MALEATE 10 MG TAB PO SCH (20:09)
[2022-06-09] MEDS: LATANOPROST 0.005% OP SOLN 2.5 ML BTL OPB SCH (20:10)
[2022-06-09] MEDS: ATORVASTATIN 10 MG TAB PO SCH (20:10)
[2022-06-09] MEDS ORDERED: RIVAROXABAN 20 MG TAB PO SCH (21:00)
--- NOTE | 2022-06-09 22:39 | Billing Data ---
Date of Service June 09, 2022 Coding Level of Care Code INP/OBS CONSULT LVL 4, 60 MIN
[2022-06-10] MEDS: PIPERACILLIN/TAZOBACTAM 3.375 GM in DEXTROSE 5% 100 ML IV SCH ×3 (02:32→17:49)
[2022-06-10] MEDS: methIMAzole 5 MG TABLET PO SCH (05:56)
[2022-06-10 06:56] LABS: Hematocrit (blood only) 34.3 % (34.1-44.9); Hemoglobin 10.9 g/dl (12.0-16.0); Mean Corpuscular Hgb Conc 31.8 g/dL (32.0-36.0); Mean Corpuscular Volume 85.1 fL (80.0-100.0); Mean Platelet Volume 12.2 fL (9.4-12.3); Platelet Count 180 K/uL (130-400); RDW Coefficient of Variation 15.9 % (11.5-14.5); RDW Standard Deviation 49.7 fL (36.4-46.3); Red Blood Count 4.03 M/uL (3.93-5.22); White Blood Count 10.99 K/ul (4.8-10.8)
[2022-06-10 07:14] LABS: BUN Creatinine Ratio 14.5 (10-20); Calcium 7.9 mg/dl (8.5-10.1); Creatinine Clr Calc Pharmacy 55.8 ml/min; Est GFR (African American) 102.7 ml/min; Est GFR (Non-African American) 88.6 ml/min; Magnesium 1.8 mg/dl (1.7-2.4); Potassium 3.9 mmol/L (3.5-5.1)
[2022-06-10] MEDS ORDERED: POTASSIUM CHLORIDE 10 MEQ TABCR PO STA (08:04)
--- NOTE | 2022-06-10 08:07 | Hospitalist Progress Note ---
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 Fluid-filled loops of large and small bowel wall are again noted throughout the abdomen and pelvis which is similar to prior suggestive of a nonspecific enterocolitis with diarrheal illness. Wall thickening of the ascending colon and hepatic flexure is new compared to the prior study. Stool PCR//cdiff negative Lactic wnl (checked day after admit, on IVF, was wnl) WBC 19k on admit, suspected reactive due to n/v initially but could have infection/translocation of bacteria with her significant stenosis and concerns for infectious etiology Decision to start IV Zosyn last evening WBC trending down. BCx pending K/mag replacement -- see below Patient feeling MUCH better this AM 06/10, tolerating diet, moving bowels. Wanting to advance diet and placed order for low fiber diet -- monitor. No further IVF required, discontinued GI consulted -- no consultation done yet, appreciate assistance/recs Lovenox SQ in place of her Xarelto as plans for upcoming surgery for SMA this week Decision to monitor overnight on abx/GI consultation and rec oncoming provider have nurse navigator reach out to [facility] tomorrow to discuss case/care and if any issues with upcoming surgery given likely will d/c on abx given above (2) Coronavirus infection, unspecified: Plan: placed on isolation initially thought-- OC 43, not COVID-19 -- however per discussion with nursing coke handling supervisor and infectious disease no need for isolation inhalers prn, incentive spirometer supplemental o2 to maintain sats -- 95% on RA Reports NO SHORTNESS OF BREATH (3) Gastroenteritis: Plan: supportive care, stool PCR negative PPI BID, carafate, pepcid BID ABX/GI consult as above (4) Hypomagnesemia: Plan: likely combination n/v, diarrhea. also PPI use. cdiff negative mag VERY LOW 0.8, IV replacement ordered 1.8 on AM labs, additional 2gm IV given her hx afib to keep ~2 Consider slow mag PO at d/c pending labs on repeat with advancement of diet as well (5) Hypokalemia: Plan: 2.9, replacement ordered --> 3.4, additional replacement and repeat 3.9 this morning and 10meq provided Monitor on BMP in AM (6) Abdominal pain: Plan: Reports RESOLVED (exception her chronic epigastric discomfort, but ONLY with DEEP palpation -- probably combination stenosis) 2nd to above, also electrolyte abn continue electrolyte replacement, PPI/H2, carafate diet advanced to low fiber, monitor for any issues (7) Atrial fibrillation: Plan: Chronic. AFIB/RVR to 110s on admit EKG Mag/K replacement as above No CP, does have some SOB at times -- resolved since mag replacement Continue diltiazem Xarelto placed on HOLD --> to have surgery this week and stop last evening Placed on low dose Lovenox 30mg given body weight while in hospital w/ acute illness If any issues w/ PO intake and needing IV meds, needs moved to monitored bed (8) COPD (chronic obstructive pulmonary disease): Plan: Chronic. Stable. Mild cough 06/09, resolved w/ mag CXR w/o acute process Inhalers ordered, incentive spirometer -- continue no sputum production reported, 97% on RA (9) Hypertension: Plan: Chronic. Blood pressure presently 131/71 -Continue Benazepril (10) Hyperthyroidism: Plan: Chronic TSH wnl 0.788 Continue methimazole (11) Leukocytosis: Plan: as above, trending down As above, placed on Zosyn abx IV, monitor response/bcx (12) Superior mesenteric artery stenosis: Plan: On imaging, chronic proximal SMA occlusion with distal reconstitution is unchanged. Moderate stenosis at the origins of the celiac trunk and inferior mesenteric artery redemonstrated. No high-grade stenosis identified involving the renal arteries. The iliac and imaged femoral arteries appear patent. Has f/u at [place] for surgery this upcoming week -- rec reaching out to them tomorrow to discuss care to ensure no issues w/ upcoming surgery given above Will consult PT/OT given weakness/fatigue to ensure no needs at d/c Plan continued inpatient stay, hopeful discharge tomorrow GI consulted -- appreciate assist Admission and Anticipated Discharge Date Admission Date: June 09, 2022 Supervising Physician Co-Signing Physician Notes PA Supervision Note: I did not personally see or examine the patient today, but I verified all lance points of BROOK Wolf's assessment and plan with the following exceptions/additions: None Subjective Eval this morning, doing well-- MUCH BETTER. Passing gas, no BM since yesterday evening overnight. Tolerating diet, feels like she would like to have some advancement. States abdominal pain resolved (only slight tenderness to epigastric with DEEP palpation, chronic). Improvement in fatigue/energy, labs improved. Discussed continuing abx given improvement in WBC and awaiting consultation for GI to see about any additional recommendations. Discussed reaching out to [facility] tomorrow to discuss case if any issues to ensure able to proceed with surgery and continues on Lovenox in meantime. No fever/chills, chest pain. Palpitations resolved with replacement of magnesium. Questions/concerns addressed. Review of Systems Review of Systems: All systems reviewed & are unremarkable except as noted in HPI & below Physical Exam Physical Exam: General: chronically ill appearing thin female sitting up in bed, finished breakfast, looks MUCH BETTER HEENT: head normocephalic, atraumatic, mm IMPROVED, trachea midline without deviation Resp: CTAB, no further wheezing, bibasilar crackles resolving, no cough, 97% on RA CV: irregularly irregular, no significant murmur, rub or gallop, no pitting edema/calf tenderness, pulses palpable GI: +BS, soft, slight tenderness epigastric region only with DEEP palpation, without guarding/rebound : no cordova MSK/Neuro: moves all extremities, no focal deficit, no confusion, strength equal bilaterally Psych; AOx3, cooperative, fatigued appearing Skin: cool, dry, turgor improved Results & Data Results & Data ([facility]) Vital Signs (Past 12 Hours) Vital Signs Temp Pulse Resp BP Pulse Ox O2 Del Method 06/10/22 07:32 36.7 C 76 16 131/71 97 Room Air 06/09/22 20:23 36.2 C L 66 18 121/55 L 99 Room Air Laboratory Results 06/10/22 06/10/22 06/10/22 Range/Units 05:56 05:56 05:56 WBC 10.99 H (4.8-10.8) K/ul RBC 4.03 (3.93-5.22) M/uL Hgb 10.9 L (12.0-16.0) g/dl Hct 34.3 (34.1-44.9) % MCV 85.1 (80.0-100.0) fL MCH 27.0 (25.0-34.0) pg MCHC 31.8 L (32.0-36.0) g/dL RDW Std Deviation 49.7 H (36.4-46.3) fL RDW Coeff of Rosio 15.9 H (11.5-14.5) % Plt Count 180 (130-400) K/uL MPV 12.2 (9.4-12.3) fL Sodium 141 (136-145) mmol/L Potassium 3.9 (3.5-5.1) mmol/L Chloride 108 H (98-107) mmol/L Carbon Dioxide 27 (21-32) mmol/L Anion Gap 6 (3-11) BUN 8 (6-23) mg/dl Creatinine 0.55 L (0.6-1.2) mg/dl Est Cr Clr Drug Dosing 55.8 ml/min Est GFR ( Amer) 102.7 ml/min Est GFR (Non-Af Amer) 88.6 ml/min BUN/Creatinine Ratio 14.5 (10-20) Glucose 79 (70-99(Fasting)) mg/dl Calcium 7.9 L (8.5-10.1) mg/dl Phosphorus (2.5-4.9) mg/dl Magnesium 1.8 (1.7-2.4) mg/dl Procalcitonin (0-0.5) ng/ml TSH 0.778 (0.300-4.500) uIu/ml 06/09/22 06/09/22 06/09/22 Range/Units 18:51 17:48 17:48 WBC (4.8-10.8) K/ul RBC (3.93-5.22) M/uL Hgb (12.0-16.0) g/dl Hct (34.1-44.9) % MCV (80.0-100.0) fL MCH (25.0-34.0) pg MCHC (32.0-36.0) g/dL RDW Std Deviation (36.4-46.3) fL RDW Coeff of Rosio (11.5-14.5) % Plt Count (130-400) K/uL MPV (9.4-12.3) fL Sodium 135 L (136-145) mmol/L Potassium 3.4 L (3.5-5.1) mmol/L Chloride 103 (98-107) mmol/L Carbon Dioxide 25 (21-32) mmol/L Anion Gap 7 (3-11) BUN 13 (6-23) mg/dl Creatinine 0.58 L (0.6-1.2) mg/dl Est Cr Clr Drug Dosing 52.9 ml/min Est GFR ( Amer) 100.9 ml/min Est GFR (Non-Af Amer) 87.1 ml/min BUN/Creatinine Ratio 22.4 H (10-20) Glucose 132 H (70-99(Fasting)) mg/dl Calcium 7.2 L (8.5-10.1) mg/dl Phosphorus (2.5-4.9) mg/dl Magnesium 2.4 (1.7-2.4) mg/dl Procalcitonin 0.13 (0-0.5) ng/ml TSH (0.300-4.500) uIu/ml 06/09/22 Range/Units 08:00 WBC (4.8-10.8) K/ul RBC (3.93-5.22) M/uL Hgb (12.0-16.0) g/dl Hct (34.1-44.9) % MCV (80.0-100.0) fL MCH (25.0-34.0) pg MCHC (32.0-36.0) g/dL RDW Std Deviation (36.4-46.3) fL RDW Coeff of Rosio (11.5-14.5) % Plt Count (130-400) K/uL MPV (9.4-12.3) fL Sodium (136-145) mmol/L Potassium (3.5-5.1) mmol/L Chloride (98-107) mmol/L Carbon Dioxide (21-32) mmol/L Anion Gap (3-11) BUN (6-23) mg/dl Creatinine (0.6-1.2) mg/dl Est Cr Clr Drug Dosing ml/min Est GFR ( Amer) ml/min Est GFR (Non-Af Amer) ml/min BUN/Creatinine Ratio (10-20) Glucose (70-99(Fasting)) mg/dl Calcium (8.5-10.1) mg/dl Phosphorus 2.7 (2.5-4.9) mg/dl Magnesium (1.7-2.4) mg/dl Procalcitonin (0-0.5) ng/ml TSH (0.300-4.500) uIu/ml PG Care Time/CCT Total # of Minutes Spent Total Time Spent with Patient: Total time spent is greater than 50% in coordination of care (as documented) at patient's floor/unit and/or counseling patient: Coding Level of Care Code 55066 SUB INP/OBS CARE 3/50MIN Diagnoses Nausea & vomiting R11.2 Vomiting type: unspecified Coronavirus infection, unspecified B34.2 Gastroenteritis K52.9 Hypomagnesemia E83.42 Hypokalemia E87.6 Abdominal pain R10.32 Abdominal location: left lower quadrant Atrial fibrillation I48.11 Atrial fibrillation type: longstanding persistent COPD (chronic obstructive pulmonary disease) J44.9 COPD type: unspecified COPD Hypertension I10 Hypertension type: essential hypertension Hyperthyroidism E05.90 Leukocytosis D72.829 Superior mesenteric artery stenosis K55.1 (1) Atrial fibrillation Atrial fibrillation type: longstanding persistent Qualified Code(s): I48.11 - Longstanding persistent atrial fibrillation (2) COPD (chronic obstructive pulmonary disease) COPD type: unspecified COPD Qualified Code(s): J44.9 - Chronic obstructive pulmonary disease, unspecified (3) Nausea & vomiting Vomiting type: unspecified Qualified Code(s): R11.2 - Nausea with vomiting, unspecified (4) Abdominal pain Abdominal location: left lower quadrant Qualified Code(s): R10.32 - Left lower quadrant pain (5) Hypertension Hypertension type: essential hypertension Qualified Code(s): I10 - Essential (primary) hypertension
[2022-06-10] MEDS: POTASSIUM CHLORIDE 20 MEQ in LACTATED RINGER'S 1,000 ML IV SCH (08:30)
[2022-06-10] MEDS: MAGNESIUM SULFATE / D5W 1 GM/100 ML BAG IV SCH ×2 (08:32→10:18)
[2022-06-10] MEDS: dilTIAZem HCL 240 MG CAPCR PO SCH (08:40)
[2022-06-10] MEDS: FAMOTIDINE 20 MG TAB PO SCH ×2 (08:40→21:48)
[2022-06-10] MEDS: FLUTICASONE FUROATE 100MCG 14 PUFFS/INHALER INH SCH (08:40)
[2022-06-10] MEDS: PANTOprazole 40 MG TAB PO SCH ×2 (08:40→21:44)
[2022-06-10] MEDS: SUCRALFATE 1 GM/10 ML UDC PO SCH ×4 (08:40→21:44)
[2022-06-10] MEDS: ENOXAPARIN INJ 30 MG/0.3 ML SYR SQ SCH (08:41)
[2022-06-10] MEDS: UMECLIDINIUM/VILANTEROL 62.5/25MCG 7 PUFFS/INHALER INH SCH (08:41)
--- NOTE | 2022-06-10 14:35 | Consultation Report ---
GASTROENTEROLOGY CONSULTATION AGE: 82 SEX: Female. RACE: . ATTENDING PHYSICIAN: Dr. Montana. CONSULTING PHYSICIAN: Dr. Su. REASON FOR CONSULTATION: Abdominal pain. HISTORY OF PRESENT ILLNESS: Lakeshia Junior is an 82-year-old female, well known to our service with an extensive past medical history of abdominal pain secondary to presumed SMA stenosis. She is scheduled in fact this week to have vascular surgery at [facility]. However, prior to this appointment, she presented to the Department of Emergency Medicine in the associate director regulatory affairs hours today. She complained of abdominal pain with nausea, vomiting and diarrhea and had been to the Department of Emergency Medicine on several occasions in the last week including on 06/02/2022 and 06/05/2022. She has had an extensive GI workup in the past including CT imaging, multiple CT angiographies, MRIs, gastric emptying studies, hepatobiliary scanning and EGD and colonoscopy as recently as 2019. Upon arrival to the Department of Emergency Medicine, she was noted to have laboratory studies including a white blood cell count of 19.39. Her H and H was 11.6 and 36.6 and her platelet count was 258. She underwent repeat abdomen and pelvis CTA this morning and was noted to have chronic occlusion of the proximal SMA with distal reconstitution, which has been described on numerous prior studies per radiology. She was also noted to have fluid-filled loops of large and small bowel noted throughout the abdomen, which are similar to prior, suggestive of nonspecific enterocolitis and did have wall thickening of the ascending colon and hepatic flexure, which was new compared to her prior study as per radiology. She was subsequently admitted. She was given IV fluids and IV antibiotics. At the time that I saw the patient, she states that she was feeling better. She did have one loose bowel movement this evening, but denied any further nausea. She further denied any vomiting, hematemesis, melena, or hematochezia. She states that she has not been able to tolerate p.o. intake over the past week, which has prompted her to present to the ER on two other occasions and a third of which was early this morning and resulted in this admission. She did have a stool BioFire performed during this admission, which was negative and a respiratory viral BioFire which was positive for non-COVID coronavirus OC43. Her lactic acid level was normal. She denies any further complaints at this time. PAST MEDICAL HISTORY: Significant for hypomagnesemia, hypokalemia, epigastric abdominal pain, unspecified coronavirus infection, leukocytosis, nausea, vomiting, SMA stenosis, renal lesion, squamous cell carcinoma of the tongue, pulmonary nodules, adrenal nodule, vocal cord paralysis, unilateral, atrial fibrillation, on chronic anticoagulation therapy, anemia, COPD, history of chronic tobacco abuse, hypertension, multinodular goiter, hematuria, GERD. PAST SURGICAL HISTORY: Includes cardioversion, cataract surgery, GIANFRANCO/BSO, cholecystectomy. ALLERGIES: ADHESIVE TAPE. CURRENT MEDICATIONS: Include Tylenol 650 mg p.o. q. 4 hours p.r.n., albuterol inhaler twice daily as needed, Lipitor 10 mg p.o. q.p.m., diltiazem 240 mg p.o. q.a.m., enalapril 40 mg p.o. q.p.m., Lovenox 30 mg subcutaneously q.a.m., famotidine 20 mg p.o. b.i.d., fluticasone 1 puff via inhaler daily, methimazole 5 mg p.o. daily, Zofran 4 mg IV q. 6 hours p.r.n., oxycodone 5 mg p.o. q. 6 hours p.r.n., Protonix 40 mg p.o. b.i.d., Zosyn 3.375 grams IV q. 8 hours, Carafate 1 gram p.o. q.i.d., tramadol 50 mg p.o. q. 12 hours p.r.n. SOCIAL HISTORY: She is a former smoker. She is . She currently lives alone. FAMILY HISTORY: Negative for GI malignancy or inflammatory bowel disease. REVIEW OF SYSTEMS: Negative x12 other than pertinent positives listed in the HPI. PHYSICAL EXAMINATION: VITAL SIGNS: Include a temperature of 36.2, pulse 66, respirations 18, blood pressure 121/55, pulse ox 99% on room air. GENERAL: Chronic ill appearing, in no acute distress. HEAD: Normocephalic, atraumatic. EYES: Pupils equal, round. Extraocular muscles are intact. No scleral icterus was noted. NECK: Soft and supple. CHEST: Decreased breath sounds in bilateral bases. CARDIOVASCULAR: Irregularly irregular. ABDOMEN: Soft, tender throughout, nondistended, positive bowel sounds. There is no appreciable hepatosplenomegaly. EXTREMITIES: No clubbing, cyanosis or edema. LABORATORY STUDIES AND RADIOGRAPHIC STUDIES: Reviewed in the HPI. IMPRESSION: An 82-year-old female with history of SMA stenosis, presenting with leukocytosis, nausea, vomiting, diarrhea and abnormal CT imaging. PLAN: At present time, I would recommend continuing supportive care with IV fluids and antiemetics as needed. I would recommend continuing IV antibiotics as per the primary team. I would also recommend that we inform the surgeon at [facility] regarding her current findings on CT imaging as the thickening in the right colon may make the surgeon uncomfortable to proceed with intervention at this time, though, I will defer to the vascular surgeon in this regard. I will follow her clinical course and make further recommendations as needed. Once again, thank you for allowing me to participate in the care of this patient. If you have any further questions, please do not hesitate in contacting me. Job ID: [id number] [facility]ITALEric
[2022-06-10] MEDS: ATORVASTATIN 10 MG TAB PO SCH (21:44)
[2022-06-10] MEDS: ENALAPRIL MALEATE 10 MG TAB PO SCH (21:44)
[2022-06-10] MEDS: LATANOPROST 0.005% OP SOLN 2.5 ML BTL OPB SCH (21:45)
[2022-06-11] MEDS: PIPERACILLIN/TAZOBACTAM 3.375 GM in DEXTROSE 5% 100 ML IV SCH ×2 (02:19→08:51)
[2022-06-11] MEDS: methIMAzole 5 MG TABLET PO SCH (05:44)
[2022-06-11 07:33] LABS: Hematocrit (blood only) 30.1 % (34.1-44.9); Hemoglobin 9.6 g/dl (12.0-16.0); Mean Corpuscular Hemoglobin 27.2 pg (25.0-34.0); Mean Corpuscular Hgb Conc 31.9 g/dL (32.0-36.0); Mean Corpuscular Volume 85.3 fL (80.0-100.0); Mean Platelet Volume 10.7 fL (9.4-12.3); Platelet Count 191 K/uL (130-400); RDW Coefficient of Variation 15.5 % (11.5-14.5); RDW Standard Deviation 47.5 fL (36.4-46.3); Red Blood Count 3.53 M/uL (3.93-5.22); White Blood Count 7.85 K/ul (4.8-10.8)
[2022-06-11 07:55] LABS: BUN Creatinine Ratio 9.6 (10-20); Calcium 7.6 mg/dl (8.5-10.1); Est GFR (African American) 104.6 ml/min; Est GFR (Non-African American) 90.2 ml/min; Magnesium 1.5 mg/dl (1.7-2.4); Potassium 3.2 mmol/L (3.5-5.1)
[2022-06-11] MEDS: FLUTICASONE FUROATE 100MCG 14 PUFFS/INHALER INH SCH (08:49)
[2022-06-11] MEDS: PANTOprazole 40 MG TAB PO SCH (08:49)
[2022-06-11] MEDS: SUCRALFATE 1 GM/10 ML UDC PO SCH ×2 (08:49→12:14)
[2022-06-11] MEDS: FAMOTIDINE 20 MG TAB PO SCH (08:50)
[2022-06-11] MEDS: ENOXAPARIN INJ 30 MG/0.3 ML SYR SQ SCH (08:50)
[2022-06-11] MEDS: UMECLIDINIUM/VILANTEROL 62.5/25MCG 7 PUFFS/INHALER INH SCH (08:50)
[2022-06-11] MEDS: dilTIAZem HCL 240 MG CAPCR PO SCH (08:51)
[2022-06-11] MEDS ORDERED: POTASSIUM CHLORIDE CRTAB 20 MEQ TABCR PO STA (09:36)
[2022-06-11] MEDS: MAGNESIUM SULFATE / D5W 1 GM/100 ML BAG IV SCH ×2 (10:09→12:14)
--- NOTE | 2022-06-11 14:02 | Discharge Summary ---
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 Patient presents with ongoing nausea, vomiting and diarrhea. She was first seen in the ER on 06/02/22 with complaint of abdominal pain and flank pain as well as loose stools. She had a CT of the abdomen performed at that time which showed scattered small and large bowel air-fluid levels with prominent loops of bowel suggestive of a nonspecific enteritis/diarrheal illness. She was treated with IV fluids, pain medication and anti-emetics and ultimately discharged home. She returned to the ER on 06/05/22 for abdominal pain, nausea and vomiting. She had a KUB performed that was suggestive of enteritis. She was treated with Carafate and ultimately discharged home. Patient returns today with persistent abdominal pain. The pain is intermittent, located in the epigastric region as well as periumbilical. She reports fairly constant discomfort after eating. She continues to have nausea and non-bloody/non-bilious emesis and po intolerance. She has not been able to eat anything for the last several days. Also with multiple episodes of watery d iarrhea. Diarrhea is not associate with PO intake. She has episodes at night as well as incontinence. Patient denies sick contacts. No recent travel. No ingestion of uncooked/undercooked food. Patient drinks bottled water. In the ER she is afebrile, HD stable, NAD. She has persistent nausea. Trialed on some sips of water and crackers and vomited Principal Diagnosis Gastroenteritis, hypomagnesemia, hypokalemia, coronavirus infection (not COVID- 19) Discharge Exam Vitals reviewed Gen: AAOx3, NAD, thin HEENT: Anicteric sclerae, EOMI CV: Irregularly irregular, normal rate, no mgr nl S1S2 Pulm: CTAB no wcr Abd: +BS soft NT ND no masses or hernias Ext: [no edema Skin: No rashes, warm/dry Neuro: Full strength throughout Discharge Data Allergies Allergy/AdvReac Type Severity Reaction Status Date / Time adhesive tape AdvReac Intermediate PULLS SKIN Verified 06/08/22 22:06 OFF Consultations 06/08/22 23:19 ED Decision to Admit Stat 06/09/22 14:07 Consult Gastroenterology Routine Ordered Studies 06/08/22 19:41 CT angio abdomen pelvis w con Stat Hospital Course (1) Nausea & vomitinyo female with 1 week of persistent nausea, vomiting and diarrhea as well as po intolerance over the past week, felt it was her usual abdominal pain and waiting for surgery next week at [facility] on 06/13 for SMA stenosis No obstruction, doubt ischemia given no bloody diarrhea reported or elevation in lactic acid Possible infectious etiology from [id number] coronavirus which was positive on [facility] viral respiratory panel Stool [facility] diarrheal panel was negative Presented with significant leukocytosis, no fevers. 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 Fluid-filled loops of large and small bowel wall are again noted throughout the abdomen and pelvis which is similar to prior suggestive of a nonspecific enterocolitis with diarrheal illness. Wall thickening of the ascending colon and hepatic flexure is new compared to the prior study. Was started on IV Zosyn and had significant improvement in her condition Was having soft formed stool and far less often on the day of discharge Was tolerating a low fiber diet Leukocytosis had resolved, blood cultures remained no growth to date Was given potassium and magnesium replacement Had no abdominal pains Appreciate GI consultation-recommended reaching out to vascular surgery team at [facility] to let them know about her admission and the changes in CT abdomen/pelvis prior to surgery. Attempts were made to do this but the office was closed for the holiday on the day of discharge. Nurse navigator will reach out on 06/12 and fax discharge summary and laboratory and radiology results to her vascular surgeon. Stable for discharge to home with 2 more days of Cipro/Flagyl for total 5 days of antibiotics empirically Continue to hold home Xarelto on discharge as planned prior to her abdominal surgery (2) Coronavirus infection, unspecified: Asymptomatic except perhaps because gastroenteritis? (3) Gastroenteritis: As above, much improved PPI BID, carafate, pepcid BID ABX/GI consult as above (4) Hypomagnesemia: likely combination n/v, diarrhea. also PPI use. cdiff negative mag VERY LOW 0.8, IV replacement ordered and improved Follow as an outpatient (5) Hypokalemia: Replaced and improved Now with improved p.o. intake should resolve (6) Abdominal pain: As above, improving Chronic secondary to mesenteric artery stenosis (7) Atrial fibrillation: Chronic. Rate controlled Continue diltiazem Xarelto placed on HOLD for surgery (8) COPD (chronic obstructive pulmonary disease): Chronic. Stable. No acute issues CXR w/o acute process Continue home inhalers for maintenance no sputum production reported, 97% on RA (9) Hypertension: Chronic. Blood pressures controlled -Continue Benazepril, diltiazem (10) Hyperthyroidism: Chronic TSH wnl 0.788 Continue methimazole (11) Leukocytosis: Now resolved, related to gastroenteritis as above (12) Superior mesenteric artery stenosis: On imaging, chronic proximal SMA occlusion with distal reconstitution is unchanged. Moderate stenosis at the origins of the celiac trunk and inferior mesenteric artery redemonstrated. No high-grade stenosis identified involving the renal arteries. The iliac and imaged femoral arteries appear patent. Has f/u at [facility] for surgery this week Plan DVT prophylaxis-Lovenox SQ Disposition-stable for discharge to home Total Time Total Time Spent Total Time Spent (In Minutes): 35 minutes Discharge Plan Discharge Items Patient Disposition: Home - Self-Care Reason For Visit: NAUSEA,VOMITING,DIARRHEA Discharge Diagnosis: Gastroenteritis, Hypomagnesemia Condition on Discharge: Good Activity: Resume your previous activity Non-emergency contact: Primary Care Provider and Surgeon Call non-emergency contact if: you have any medication questions, your symptoms worsen and your pain is not controlled Follow-up/Referrals: Carlton Mendez III, CRNP [Primary Care Provider] - (Follow-up within 1 to 2 weeks.) Diet: Low Fiber Addtl Attending Provider Instructions: You are admitted with nausea/vomiting/diarrhea consistent with gastroenteritis. The stool studies were negative for bacterial or viral infection. You did test positive however for a coronavirus on the viral respiratory nasal swab that is a cold virus NOT from COVID-19. It is possible that this cold virus did cause diarrhea as well. Your symptoms also could be related to your known artery blockages to the int estines. You had severely low magnesium levels from the diarrhea and this was replaced. Your potassium levels were also mildly low and this was replaced. Continue low fiber diet after you return home. Please continue on oral antibiotics for 2 more days just in case this was from a bacterial infection. ED nurse navigator from [facility] will contact your vascular surgeon in the morning and fax down all of your discharge information so they are aware of your hospital stay. You should remain off of your Xarelto as directed by your surgeon until they tell you to restart it after surgery. Pending Studies at Discharge: Yes Studies:: Blood cultures-no growth to date Stand-Alone Forms: My [facility], Smoking Cessation Medications and DC Order Prescriptions: New ciprofloxacin HCl [Cipro] 500 mg tablet 500 mg PO BID Qty: 4 0RF metronidazole 500 mg tablet 500 mg PO TID Qty: 6 0RF Continued ipratropium-albuterol 0.5 mg-3 mg(2.5 mg base)/3 mL solution for nebulization 3 ml inhalation BID PRN (Reason: shortness of breath or wheezing) Qty: 15 1RF Rx Instructions: INHALE 3 ML INHALATION TWICE A DAY NEEDED FOR SHORTNESS OF BREATH OR WHEEZING ferrous sulfate [Iron (ferrous sulfate)] 325 mg (65 mg iron) tablet 325 mg PO QAM Qty: 90 1RF atorvastatin 10 mg tablet 10 mg PO QPM Qty: 90 1RF Trelegy Ellipta 100-62.5-25 mcg blister with device 1 inh inhalation DAILY Qty: 60 2RF benazepril 20 mg tablet 40 mg PO QPM Qty: 180 3RF tramadol 50 mg tablet 50 mg PO Q12 PRN (Reason: Pain) Qty: 60 0RF pantoprazole 40 mg tablet,delayed release (DR/EC) 40 mg PO BID Qty: 180 3RF Rx Instructions: TAKES QAM & MID AFTERNOON albuterol sulfate [Ventolin HFA] 90 mcg/actuation HFA aerosol inhaler 2 puff INHALATION QID PRN (Reason: Shortness Of Breath Or Wheezing) Qty: 8.5 1RF latanoprost [Xalatan] 0.005 % drops 1 drp OPB HS diltiazem HCl 240 mg capsule,extended release 24hr 240 mg PO QAM Rx Instructions: TAKE 1 CAPSULE BY MOUTH EVERY DAY methimazole 5 mg tablet 5 mg PO DAILYBB sucralfate [Carafate] 100 mg/mL suspension 10 ml PO QID Qty: 420 0RF Rx Instructions: swish in mouth and swallow; use after food/drink: May substitute tablets as a slurry. famotidine 20 mg tablet 20 mg PO BID Qty: 20 0RF ondansetron 4 mg tablet,disintegrating 4 mg PO Q6H PRN (Reason: nausea and vomiting) Qty: 14 0RF oxycodone 5 mg tablet 5 mg PO Q6H PRN (Reason: pain) Qty: 15 0RF Discontinued Xarelto 20 mg tablet 20 mg PO QPM Qty: 90 1RF Rx Instructions: TAKE 1 TABLET BY MOUTH EVERY DAY IN THE EVENING Discharge Orders: Discharge Order (Routine); Ordered 06/11/22 Ordered By: Ro [place] Admission Data Admit Date/Time: 06/09/22 00:05 Attending Provider: Ro [place] Admit Provider: Jaye Doran Primary Care Provider: Carlton Mendez III Other Providers: Jaye Doran ; Carlos Manuel Su Coding Level of Care Code HOSP INP/OBS DISCH >30 MIN Diagnoses Nausea & vomiting R11.2 Vomiting type: unspecified Coronavirus infection, unspecified B34.2 Gastroenteritis K52.9 Hypomagnesemia E83.42 Hypokalemia E87.6 Abdominal pain R10.32 Abdominal location: left lower quadrant Atrial fibrillation I48.11 Atrial fibrillation type: longstanding persistent COPD (chronic obstructive pulmonary disease) J44.9 COPD type: unspecified COPD Hypertension I10 Hypertension type: essential hypertension Hyperthyroidism E05.90 Leukocytosis D72.829 Superior mesenteric artery stenosis K55.1
== END 2022-06-11 15:31 | disposition home or self-care (01) ==
LOC: ED 15:10 → 3W 15:10 → SUATTDRO 06-09 00:05 → 3W 06-09 05:25

== ENCOUNTER 2022-07-21 16:32 | Observation (INO) ==
--- NOTE | 2022-07-21 17:51 | Emergency Department Note ---
Impression & Plan TIA (transient ischemic attack), Anemia, A-fib, Dizziness ED Provider Note NAME: LOGAN MARCELINO AGE: 82 SEX: F : 1940 ARRIVES VIA: Walk-In INFORMANT: Patient, ED PROVIDER(S): Damion Fabian MD CHIEF COMPLAINT: Dizziness MEDICAL DECISION MAKING: Patient presents due to concern for dizziness. The patient reported that she felt as if she had some left leg weakness about an hour prior to arrival which is since resolved. The patient is already anticoagulated on Xarelto. Blood work was obtained along with an EKG chest x-ray and CT of the head. EKG does show A-fib and patient has known history. Patient does have a normal white count mild anemia hemoglobin of 7.9. Patient's most recent home hemoglobin from earlier in June was 10.5. Rectal exam was performed. This is heme-negative. Platelet count is unremarkable. Kidney function grossly unremarkable. Calcium low at 7.7 this is ordered for replacement. COVID flu and RSV negative. Patient CT of the head is negative. Chest x-ray shows small with pleural effusion. I did discuss the patient's case with the patient family member and they are amenable to inpatient treatment and further testing for possible TIA work-up. I did speak with the on-call hospitalist Dr. Doran and the patient was admitted to the medicine service. Prior /Outside records reviewed: I did review the patient's most recent vascular surgery note from [facility] from Dr. 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 Differential diagnosis: Infection, dehydration, metabolic abnormality, hypo/hyperglycemia, electrolyte disturbance, anemia, hypoxia, cardiac sources, intracerebral event, toxicologic, neurologic, as well as other pathologies. Diagnostics, as interpreted by me: ECG: A-fib, ventricular rate of 58, normal QRS normal axis. Rate is slower from comparison EKG June 05, 2022 Cardiac monitoring: An order was placed for continuous cardiac monitoring. The monitor shows a rate of 67 with irregularly irregular rhythm. Patient was placed on pulse oximetry Medical decision rules: None Imaging studies: See below HPI: Patient presents due to concern for weakness dizziness and left lower extremity weakness that occurred approximate 1 hour prior to arrival while she was shopping with family member. Patient denies any chest pains or shortness of breath no nausea vomiting. The patient does complain currently some generalized weakness. No falls or trauma. The patient did have a recent vascular procedure at [facility] completed several weeks ago and did have follow-up and was told that she was doing well. Patient is currently on Xarelto. Patient denies any abdominal pain nausea vomiting or diarrhea. No prior history stroke or mini stroke. Patient states that her symptoms have resolved with regard to the left lower extremity weakness but was concerned as she did not feel quite right. Patient is compliant with her medications. Patient does have a known history of A-fib. Patient states that she does have some chronic issues with some numbness in the hands but this is unchanged and the patient does have a follow-up primary care appointment next week. PAST MEDICAL HISTORY: See Below PAST SURGICAL HISTORY: See Below SOCIAL HISTORY: See Below HOME MEDICATIONS: See Below ALLERGIES: See Below VITALS: See Below PHYSICAL EXAMINATION: GENERAL: NAD, wearing a mask, non-toxic. EYE EXAM: Normal conjunctiva. PERRL, no anisocoria and EOM's grossly intact w/o pain. NECK: Supple, no nuchal rigidity, no adenopathy, non-tender. No signs of meningismus. FROM of the neck with good chin to chest and neck extension. No stridor. LUNGS: Clear to auscultation. Normal chest wall mechanics. HEART: Irregularly irregular, no MRG. ABDOMEN: Abdomen soft, healing midline incision with no surrounding erythema fluctuance drainage or tenderness to palpation, non-tender, normo-active bowel sounds, no masses, no rebound or guarding. BACK: No CVA TTP. SKIN: No rashes and no bruising. UPPER EXTREMITIES: Upper extremities are grossly normal. LOWER EXTREMITIES: Grossly normal, no edema. NEURO EXAM: A&O x3, cranial nerves II-XII grossly intact, normal speech, moves all 4 extremities. Good [id number], no drift and no sensory deficits. Past Med/Surg History Medical History Acid reflux Adrenal nodule Atrial fibrillation Dx 4-5 years ago; on xarelto; hx cardioversion; follows with Dr. Pat COPD (chronic obstructive pulmonary disease) COHN (dyspnea on exertion) Glaucoma History of uterine cancer dx > 5 years; treated surgically HLD (hyperlipidemia) Hypertension Hyperthyroidism Poor historian Pulmonary nodules SMAS (superior mesenteric artery syndrome) Vocal cord paralysis, unilateral complete Surgical History History of anesthesia reaction SLOW TO WAKE UP History of cardioversion History of cataract surgery RT/LEFT History of colonoscopy History of endoscopy History of esophagogastroduodenoscopy (EGD) History of total abdominal hysterectomy and bilateral salpingo-oophorectomy S/P cholecystectomy Family History Daughter Breast cancer Mother Cancer Uterine cancer Father Heart disease Sister Family history of diabetes mellitus Brother Family history of diabetes mellitus Aunt Family history of diabetes mellitus Aunt Family history of diabetes mellitus Other Family history non-contributory Hypertension No family history of adverse response to anesthesia Denies family history of Colon cancer Ovarian cancer Prostate cancer Myocardial infarction Social History Smoking Status: Former smoker Tobacco Type: Cigarettes Second Hand Exposure: No; Hx Alcohol Use: No Hx Substance Use: No Preferred Language: Upper Sorbian Communication Ability: Effective Visual Impairment: No Limitations Hearing Ability: Normal Rim Buster Required: No Beliefs That Will Affect Care: None marital status: / Current Living Situation: Alone current occupational status: retired How many Children do You have: 3 Feels Safe at Home: Yes Childhood Exposure to Second-Hand Smoke: Yes caffeine: Yes during the past year weight has: remained stable Dental Care, Regularly: No Physical Activity Frequency: Does not Exercise Seatbelt Use: always Sunscreen Use: Yes Assistive Devices: None Allergies Allergies Allergy/AdvReac Type Severity Reaction Status Date / Time adhesive tape AdvReac Intermediate PULLS SKIN Verified 06/28/22 18:45 OFF Home Meds Home Medications Medication Instructions Recorded Confirmed latanoprost 0.005 % eye drops 1 drp OPB HS 11/20/18 07/21/22 (Xalatan) diltiazem HCl 240 mg 240 mg PO QAM 03/24/22 07/21/22 capsule,extended release 24 hr methimazole 5 mg tablet 5 mg PO DAILYBB 06/05/22 07/21/22 aspirin 81 mg chewable tablet 81 mg PO DAILY 07/21/22 07/21/22 Previous Rx's Medication Instructions Recorded pantoprazole 40 mg tablet,delayed 40 mg PO BID #180 tabs 07/17/21 release ipratropium 0.5 mg-albuterol 3 mg 3 ml inhalation BID PRN shortness 08/24/21 (2.5 mg base)/3 mL nebulization of breath or wheezing #15 mL soln ferrous sulfate 325 mg (65 mg 325 mg PO QAM #90 tabs 01/31/22 iron) tablet (Iron (ferrous sulfate)) albuterol sulfate 90 mcg/actuation 2 puff inhalation QID PRN 02/22/22 aerosol inhaler (Ventolin HFA) Shortness Of Breath Or Wheezing #8.5 grams atorvastatin 10 mg tablet 10 mg PO QPM #90 tabs 03/05/22 fluticasone fur. 100 mcg-umeclid 1 inh inhalation DAILY #60 ea 04/23/22 62.5 mcg-vilant 25 mcg inhalat.powder (Trelegy Ellipta) benazepril 20 mg tablet 40 mg PO QPM #180 tabs 04/25/22 rivaroxaban 20 mg tablet (Xarelto) 20 mg PO QPM #90 tabs 07/12/22 Results & Data (ED) Vital Signs Vital Signs - 24 hr 07/21/22 16:36 07/21/22 18:33 07/21/22 16:42 Temperature 36.2 C L Temperature Source Skin Pulse Rate 120 H 69 Respiratory Rate 20 Respiratory Effort / Characteristics Non-Labored Spontaneous Respiratory Depth Normal Respiratory Pattern Regular Blood Pressure 104/68 Blood Pressure Mean 80 Pulse Oximetry 100 Oxygen Delivery Method Room Air Room Air Sepsis Recent Fever Within 48 Hours No Sepsis New/Unexplained Change in Mental Status N/A Sepsis Action Taken by Nursing No Action Required 07/21/22 16:42 07/21/22 22:32 Temperature Temperature Source Pulse Rate 86 Respiratory Rate Respiratory Effort / Characteristics Respiratory Depth Respiratory Pattern Blood Pressure Blood Pressure Mean Pulse Oximetry Oxygen Delivery Method Room Air Sepsis Recent Fever Within 48 Hours Sepsis New/Unexplained Change in Mental Status Sepsis Action Taken by [facility] Medications Current Medication List: was personally reviewed by me Laboratory Data Attestation: I reviewed the patient's lab results. 07/21/22 17:43 07/21/22 17:43 Lab Results 02/25/23 02/25/23 02/25/23 Range/Units 17:41 17:43 17:43 WBC 7.86 (4.8-10.8) K/ul RBC 2.77 L (4.20-5.40) M/uL Hgb 7.9 L (12.0-16.0) g/dl Hct 25.6 L (37.0-47.0) % MCV 92.4 (80.0-100.0) fL MCH 28.5 (25.0-34.0) pg MCHC 30.9 L (32.0-36.0) g/dL RDW Std Deviation 62.7 H (36.4-46.3) fL RDW Coeff of Rosio 18.7 H (11.5-14.5) % Plt Count 319 (130-400) K/uL MPV 10.8 (9.4-12.4) fL PT 16.4 H (9.0-12.0) Seconds INR 1.6 H (0.9-1.1) APTT 31.7 H (21.0-31.0) Seconds PTT Ratio 1.2 Sodium (136-145) mmol/L Potassium (3.5-5.1) mmol/L Chloride (98-107) mmol/L Carbon Dioxide (21-32) mmol/L Anion Gap (3-11) BUN (6-23) mg/dl Creatinine (0.6-1.2) mg/dl Est Cr Clr Drug Dosing ml/min Est GFR ( Amer) ml/min Est GFR (Non-Af Amer) ml/min BUN/Creatinine Ratio (10-20) Glucose (70-99(Fasting)) mg/dl Calcium (8.5-10.1) mg/dl Magnesium (1.7-2.4) mg/dl Total Bilirubin (0.2-1.0) mg/dl AST (13-39) U/L ALT (7-52) U/L Alkaline Phosphatase (34-104) U/L Total Protein (6.0-8.3) gm/dl Albumin (3.4-5.0) gm/dl Globulin (2.5-4.0) gm/dl Albumin/Globulin Ratio (0.9-2) POC Stool Occult Blood (Negative) SARS-CoV-2 (PCR) NEGATIVE (Negative) Influenza Type A (PCR) Negative (Neg) Influenza Type B (PCR) Negative (Neg) RSV (RT-PCR) Negative (Neg) 07/21/22 07/21/22 Range/Units 17:43 19:47 WBC (4.8-10.8) K/ul RBC (4.20-5.40) M/uL Hgb (12.0-16.0) g/dl Hct (37.0-47.0) % MCV (80.0-100.0) fL MCH (25.0-34.0) pg MCHC (32.0-36.0) g/dL RDW Std Deviation (36.4-46.3) fL RDW Coeff of Rosio (11.5-14.5) % Plt Count (130-400) K/uL MPV (9.4-12.4) fL PT (9.0-12.0) Seconds INR (0.9-1.1) APTT (21.0-31.0) Seconds PTT Ratio Sodium 137 (136-145) mmol/L Potassium 3.5 (3.5-5.1) mmol/L Chloride 104 (98-107) mmol/L Carbon Dioxide 25 (21-32) mmol/L Anion Gap 8 (3-11) BUN 18 (6-23) mg/dl Creatinine 1.06 (0.6-1.2) mg/dl Est Cr Clr Drug Dosing 29.9 ml/min Est GFR ( Amer) 57.4 ml/min Est GFR (Non-Af Amer) 49.6 ml/min BUN/Creatinine Ratio 17.0 (10-20) Glucose 70 (70-99(Fasting)) mg/dl Calcium 7.7 L (8.5-10.1) mg/dl Magnesium 1.9 (1.7-2.4) mg/dl Total Bilirubin 0.5 (0.2-1.0) mg/dl AST 15 (13-39) U/L ALT 6 L (7-52) U/L Alkaline Phosphatase 68 (34-104) U/L Total Protein 5.3 L (6.0-8.3) gm/dl Albumin 2.7 L (3.4-5.0) gm/dl Globulin 2.6 (2.5-4.0) gm/dl Albumin/Globulin Ratio 1.0 (0.9-2) POC Stool Occult Blood Negative (Negative) SARS-CoV-2 (PCR) (Negative) Influenza Type A (PCR) (Neg) Influenza Type B (PCR) (Neg) RSV (RT-PCR) (Neg) Administered Medications Discontinued Medications Calcium Gluconate () 1,000 mg in 60 mls @ 240 mls/hr IV NOW STA Stop: 07/21/22 19:29 Last Infusion: 07/21/22 19:46 Dose: 0 mls/hr Documented By: Admin: 07/21/22 19:28 Dose: 240 mls/hr Documented By: QGV Imaging Data Radiologist's Impression: Chest X-Ray 07/21/22 16:42 XR chest 1V portable CLINICAL HISTORY: stroke alert COMPARISON STUDY: Chest CT August 28, 2021 and chest radiograph June 08, 2022. FINDINGS: There is no pneumothorax. A small left pleural effusion is noted. Mild elevation of the left hemidiaphragm with left basilar opacity. Right lung is clear. No evidence for pulmonary edema. Cardiomediastinal silhouette is normal. IMPRESSION: Small left pleural effusion. Associated airspace opacity favors atelectasis although consolidation could appear similar. Radiographic follow-up is recommended. ACT 112: Negative or not required by law. Electronically signed by: Moshe Lucas M.D. 07/21/2022 6:[address] 07/21/22 16:[address] DOSE: 537.48 mGy.cm HISTORY: Dizziness. Left-sided weakness. Stroke Alert TECHNIQUE: Multiaxial CT images of the head were performed without the use of intravenous contrast. Automated exposure control was utilized for this study. A dose lowering technique was utilized adhering to the principles of ALARA. Comparison: Head CT 12/22/2020. Findings: The paranasal sinuses and mastoid air cells are clear. The calvarium and skull base are intact. The ventricles and sulci are within normal limits. There is no mass, hematoma, midline shift, or acute infarct. Impression: No acute intracranial abnormality. ACT 112: Negative or not required by law. Electronically signed by: Leonard Lucia M.D. 07/21/2022 7:09 PM Discharge Plan Visit Data Chief Complaint: Dizziness Stated Complaint: LIGHT HEADED, NUMBNESS IN HANDS ED Provider: Damion Fabian Discharge Problem: TIA (transient ischemic attack), Anemia, A-fib, Dizziness Patient Disposition: Admitted As Inpatient Forms Stand Alone Forms: My [facility] Prescriptions Prescriptions: No Action ipratropium-albuterol 0.5 mg-3 mg(2.5 mg base)/3 mL solution for nebulization 3 ml inhalation BID PRN (Reason: shortness of breath or wheezing) Qty: 15 1RF Rx Instructions: INHALE 3 ML INHALATION TWICE A DAY NEEDED FOR SHORTNESS OF BREATH OR WHEEZING ferrous sulfate [Iron (ferrous sulfate)] 325 mg (65 mg iron) tablet 325 mg PO QAM Qty: 90 1RF atorvastatin 10 mg tablet 10 mg PO QPM Qty: 90 1RF Trelegy Ellipta 100-62.5-25 mcg blister with device 1 inh inhalation DAILY Qty: 60 2RF benazepril 20 mg tablet 40 mg PO QPM Qty: 180 3RF Xarelto 20 mg tablet 20 mg PO QPM Qty: 90 3RF Rx Instructions: must administer with evening meal pantoprazole 40 mg tablet,delayed release (DR/EC) 40 mg PO BID Qty: 180 3RF Rx Instructions: TAKES QAM & MID AFTERNOON albuterol sulfate [Ventolin HFA] 90 mcg/actuation HFA aerosol inhaler 2 puff INHALATION QID PRN (Reason: Shortness Of Breath Or Wheezing) Qty: 8.5 1RF latanoprost [Xalatan] 0.005 % drops 1 drp OPB HS diltiazem HCl 240 mg capsule,extended release 24hr 240 mg PO QAM Rx Instructions: TAKE 1 CAPSULE BY MOUTH EVERY DAY methimazole 5 mg tablet 5 mg PO DAILYBB aspirin [Baby Aspirin] 81 mg Tablet,Chewable 81 mg PO DAILY Referrals Referrals: Carlton Mendez III, CRNP [Primary Care Provider] -
[2022-07-21 17:58] LABS: Hematocrit (blood only) 25.6 % (37.0-47.0); Hemoglobin 7.9 g/dl (12.0-16.0); Mean Corpuscular Hemoglobin 28.5 pg (25.0-34.0); Mean Corpuscular Hgb Conc 30.9 g/dL (32.0-36.0); Mean Corpuscular Volume 92.4 fL (80.0-100.0); Mean Platelet Volume 10.8 fL (9.4-12.4); Platelet Count 319 K/uL (130-400); RDW Coefficient of Variation 18.7 % (11.5-14.5); RDW Standard Deviation 62.7 fL (36.4-46.3); Red Blood Count 2.77 M/uL (4.20-5.40); White Blood Count 7.86 K/ul (4.8-10.8)
[2022-07-21 18:17] LABS: Albumin Level 2.7 gm/dl (3.4-5.0); Bilirubin,Total 0.5 mg/dl (0.2-1.0); Calcium 7.7 mg/dl (8.5-10.1); Creatinine Clr Calc Pharmacy 29.9 ml/min; Est GFR (African American) 57.4 ml/min; Est GFR (Non-African American) 49.6 ml/min; Globulin 2.6 gm/dl (2.5-4.0); Magnesium 1.9 mg/dl (1.7-2.4); Potassium 3.5 mmol/L (3.5-5.1); Total Protein 5.3 gm/dl (6.0-8.3)
[2022-07-21 18:29] LABS: Influenza A virus by PCR Negative (Neg); Influenza B virus by PCR Negative (Neg); RSV by PCR Negative (Neg); SARS CoV2 RNA(COVID-19) Ceph NEGATIVE (Negative)
--- NOTE | 2022-07-21 18:37 | XRay Report ---
XR chest 1V portable CLINICAL HISTORY: stroke alert COMPARISON STUDY: Chest CT August 28, 2021 and chest radiograph June 08, 2022. FINDINGS: There is no pneumothorax. A small left pleural effusion is noted. Mild elevation of the lef t hemidiaphragm with left basilar opacity. Right lung is clear. No evidence for pulmonary edema. Card iomediastinal silhouette is normal. IMPRESSION: Small left pleural effusion. Associated airspace opacity favors atelectasis although cons olidation could appear similar. Radiographic follow-up is recommended. ACT 112: Negative or not required by law. Electronically signed by: Moshe Lucas M.D. 07/21/2022 6:36 PM
[2022-07-21 19:03] LABS: INR 1.6 (0.9-1.1); Partial Thromboplastin Ratio 1.2; Partial Thromboplastin Time 31.7 Seconds (21.0-31.0); Prothrombin Time 16.4 Seconds (9.0-12.0)
--- NOTE | 2022-07-21 19:10 | CT Scan Report ---
HEAD CT NONCONTRAST CT DOSE: 537.48 mGy.cm HISTORY: Dizziness. Left-sided weakness. Stroke Alert TECHNIQUE: Multiaxial CT images of the head were performed without the use of intravenous contrast. A utomated exposure control was utilized for this study. A dose lowering technique was utilized adheri ng to the principles of ALARA. Comparison: Head CT 12/22/2020. Findings: The paranasal sinuses and mastoid air cells are clear. The calvarium and skull base are int act. The ventricles and sulci are within normal limits. There is no mass, hematoma, midline shift, or acute infarct. Impression: No acute intracranial abnormality. ACT 112: Negative or not required by law. Electronically signed by: Leonard Lucia M.D. 07/21/2022 7:09 PM
[2022-07-21] MEDS ORDERED: CALCIUM GLUCONATE 1,000 MG/60 ML BAG IV STA (19:15)
--- NOTE | 2022-07-21 19:50 | History & Physical Report ---
Date of Service July 21, 2022 Assessment & Plan (1) Stroke-like symptoms: Plan: -Admit to med/tele -The patient is currently afebrile, hemodynamically stable, and stable on RA -The patient history is consistent with a possible TIA, while she is on Xarelto, low-dose atorvastatin, and a baby aspirin she recently required a vascular surgery procedure for mesenteric ischemia while on Xarelto. -Will continue Xarelto and her baby aspirin, increase her atorvastatin from 10 mg to 40 mg PO daily -Will obtain an MRI of the brain, TTE, A1c, and fasting lipide panel -Q6h Neuro checks, fall precautions, PT/OT consults placed -Xarelto and BL SCDs for DVT PPX -AM CBC, CMP, Mag (2) Atrial fibrillation: Plan: -Continue Diltiazem and Xarelto (3) COPD (chronic obstructive pulmonary disease): Plan: -Stable on RA -Continue home breathing treatments -Incentive spirometry (4) Hypertension: Plan: -Stable -Continue diltiazem and Benazepril (5) Hyperthyroidism: Plan: -Continue methimazole (6) HLD (hyperlipidemia): Plan: -Increased statin to 40 mg Po daily (7) Gastritis: Plan: -Continue pantoprazole Plan The Patient was discussed with Dr. Doran at the time of the admission History of Present Illness Chief Complaint: Dizziness Primary Care Provider: Carlton Mendez, III, LUIZ Lakeshia is an 82 year old female with a PMH significant for afib on Xarelto, hyperthyroidism, partial vocal cord paralysis, COPD, GERD, hyperlipidemia, HTN, anemia, and HFpEF (LVEF of 60% as of 04/18/22) who presented to the [facility] ED on 07/21/22 with a chief complaint of dizziness. In the ED the patient was found to be afebrile, hemodynamically stable, and stable on RA. Labs were remarkable for a WBC WNL, Hgb of 7.9 (down from 10.5 as of 07/05/22), stable platelets, INR of 1.6, Crr of 1.06 (baseline appears to be 0.8-0.9), corrected calcium of 8.7, LFT's WNL, Covid/Influenza/RSV negative. CT of the head was read as "No acute intracranial abnormality.". Chest xray was read as "Small left pleural effusion. Associated airspace opacity favors atelectasis although consolidation could appear similar. Radiographic follow-up is recommended.". At the time of the exam the patient was resting in bed in no acute distress with her Daughter sitting bedside, history was obtained from both. The patient underwent a recent vascular procedure for mesenteric ischemia at [facility] on 06/13/22. She states that she was told to hold her Xarelto two days prior to the procedure and restarted her Xarelto approximately 3 weeks ago when she was discharged home. Since then she has been doing well had a follow-up approximately one week ago. At that time she was also started on a daily baby aspirin, which she has been taking. She woke up this am feeling her her normal self and was able to get ready for the day without issue. This afternoon she was at the store with her daughter when she suddenly developed BL blurry vision. She denies losing complete vision in either eye and believes that the blurry vision was symmetrical. She then developed left LE weakness which caused her to feel unstable while walking and needed to sit down. By the time she arrived to the ED her symptoms had resolved, she confirms that her symptoms have resolved at the time of my exam. She was able to walk to the CT machine without issue for her CT head earlier. She was a former smoker approximately 30 years ago. She denies recent fever, chills, chest pain, SOB, heart palpitations, abd pain, nausea, vomiting, lightheadedness, dizziness, dysuria, hematuria, melena, bloody bowel movements, and recent falls. She and her daughter would prefer for her to stay at this time for complete workup of her symptoms. We discussed code status, she wishes to be a full code. Please refer to Dr. Doran's attestation for any changes to the treatment plan Allergies Allergy/AdvReac Type Severity Reaction Status Date / Time adhesive tape AdvReac Intermediate PULLS SKIN Verified 06/28/22 18:45 OFF Home Medications Medication Instructions Recorded Confirmed Type latanoprost 0.005 % eye drops 1 drp OPB HS 11/20/18 07/21/22 History (Xalatan) pantoprazole 40 mg tablet,delayed 40 mg PO BID #180 tabs 07/17/21 07/21/22 Rx release ipratropium 0.5 mg-albuterol 3 mg 3 ml inhalation BID PRN shortness 08/24/21 07/21/22 Rx (2.5 mg base)/3 mL nebulization of breath or wheezing #15 mL soln ferrous sulfate 325 mg (65 mg 325 mg PO QAM #90 tabs 01/31/22 07/21/22 Rx iron) tablet (Iron (ferrous sulfate)) albuterol sulfate 90 mcg/actuation 2 puff inhalation QID PRN 02/22/22 07/21/22 Rx aerosol inhaler (Ventolin HFA) Shortness Of Breath Or Wheezing #8.5 grams atorvastatin 10 mg tablet 10 mg PO QPM #90 tabs 03/05/22 07/21/22 Rx diltiazem HCl 240 mg 240 mg PO QAM 03/24/22 07/21/22 History capsule,extended release 24 hr fluticasone fur. 100 mcg-umeclid 1 inh inhalation DAILY #60 ea 04/23/22 07/21/22 Rx 62.5 mcg-vilant 25 mcg inhalat.powder (Trelegy Ellipta) benazepril 20 mg tablet 40 mg PO QPM #180 tabs 04/25/22 07/21/22 Rx methimazole 5 mg tablet 5 mg PO DAILYBB 06/05/22 07/21/22 History rivaroxaban 20 mg tablet (Xarelto) 20 mg PO QPM #90 tabs 07/12/22 07/21/22 Rx aspirin 81 mg chewable tablet 81 mg PO DAILY 07/21/22 07/21/22 History Past Med/Surg History Medical History (Updated 07/21/22 @ 20:47 by Karthik Payne PA-C) Acid reflux Adrenal nodule Atrial fibrillation Dx 4-5 years ago; on xarelto; hx cardioversion; follows with Dr. Pat COPD (chronic obstructive pulmonary disease) COHN (dyspnea on exertion) Glaucoma History of uterine cancer dx > 5 years; treated surgically HLD (hyperlipidemia) Hypertension Hyperthyroidism Poor historian Pulmonary nodules SMAS (superior mesenteric artery syndrome) Vocal cord paralysis, unilateral complete Surgical History History of anesthesia reaction SLOW TO WAKE UP History of cardioversion History of cataract surgery RT/LEFT History of colonoscopy History of endoscopy History of esophagogastroduodenoscopy (EGD) History of total abdominal hysterectomy and bilateral salpingo-oophorectomy S/P cholecystectomy Family History Daughter Breast cancer Mother Cancer Uterine cancer Father Heart disease Sister Family history of diabetes mellitus Brother Family history of diabetes mellitus Aunt Family history of diabetes mellitus Aunt Family history of diabetes mellitus Other Family history non-contributory Hypertension No family history of adverse response to anesthesia Denies family history of Colon cancer Ovarian cancer Prostate cancer Myocardial infarction Social History Smoking Status: Former smoker Tobacco Type: Cigarettes Second Hand Exposure: No; Hx Alcohol Use: No Hx Substance Use: No Preferred Language: Jordanian Communication Ability: Effective Visual Impairment: No Limitations Hearing Ability: Normal Senior Training Specialist Required: No Beliefs That Will Affect Care: None marital status: / Current Living Situation: Alone current occupational status: retired How many Children do You have: 3 Feels Safe at Home: Yes Childhood Exposure to Second-Hand Smoke: Yes caffeine: Yes during the past year weight has: remained stable Dental Care, Regularly: No Physical Activity Frequency: Does not Exercise Seatbelt Use: always Sunscreen Use: Yes Assistive Devices: None Review of Systems Review of Systems: Denies current fever, chills, headache, changes in vision, hearing, taste, and smell, chest pain, SOB, cough, abdominal pain, nausea, vomiting, diarrhea, hematemesis, melena, dysuria, hematuria, and recent falls. All systems have been reviewed and are otherwise negative. Physical Exam Physical Exam: Physical Exam: General: In no acute distress, stated age, chronically ill-appearing HEENT: Normocephalic, atraumatic, no scleral icterus, pupils around round, symmetrical, and reactive to light, moist mucus membranes, trachea midline, no thyromegaly Chest/Pulm: No respiratory distress, symmetrical chest expansion, clear breath sounds throughout Cardiac: irregular rate and rhythm, no murmurs noted Abdomen: Negative for ascites and bruising, patient with large central abdominal scar from recent vascular procedure which appears intact and without sings of infection or dehiscence, normoactive bowel sounds, soft, non-tender to palpation throughout Musculoskeletal: Symmetrical and without signs of acute trauma, upper and l ower extremities with full ROM, no atrophy, spasticity, or flaccidity Extremities: Radial, dorsalis pedis, and posterior tibial pulses are intact and symmetrical, no edema noted in the BL LE's Skin: Warm, dry, no rashes , lesions, or scars noted Neuro: Alert and oriented to person, place, month, year, and president, no focal defects, CN II-XII tested and intact, finger to nose test negative, no tremors noted Psych: No acute distress, calm and cooperative during the exam Results & Data Results & Data ([facility]) Vital Signs (Past 12 Hours) Vital Signs Temp Pulse Resp BP Pulse Ox O2 Del Method 07/21/22 16:42 Room Air 07/21/22 16:42 Room Air 07/21/22 18:33 69 07/21/22 16:36 36.2 C L 120 H 20 104/68 100 Room Air Laboratory Results Abnormal lab results 07/21/22 07/21/22 07/21/22 Range/Units 17:43 17:43 17:43 RBC 2.77 L (4.20-5.40) M/uL Hgb 7.9 L (12.0-16.0) g/dl Hct 25.6 L (37.0-47.0) % MCHC 30.9 L (32.0-36.0) g/dL RDW Std Deviation 62.7 H (36.4-46.3) fL RDW Coeff of Rosio 18.7 H (11.5-14.5) % PT 16.4 H (9.0-12.0) Seconds INR 1.6 H (0.9-1.1) APTT 31.7 H (21.0-31.0) Seconds Calcium 7.7 L (8.5-10.1) mg/dl ALT 6 L (7-52) U/L Total Protein 5.3 L (6.0-8.3) gm/dl Albumin 2.7 L (3.4-5.0) gm/dl Diagnostic Findings Chest X-Ray 07/21/22 16:42 XR chest 1V portable CLINICAL HISTORY: stroke alert COMPARISON STUDY: Chest CT August 28, 2021 and chest radiograph June 08, 2022. FINDINGS: There is no pneumothorax. A small left pleural effusion is noted. Mild elevation of the left hemidiaphragm with left basilar opacity. Right lung is clear. No evidence for pulmonary edema. Cardiomediastinal silhouette is normal. IMPRESSION: Small left pleural effusion. Associated airspace opacity favors atelectasis although consolidation could appear similar. Radiographic follow-up is recommended. ACT 112: Negative or not required by law. Electronically signed by: Moshe Lucas M.D. 07/21/2022 6:[address] 07/21/22 16:[address] DOSE: 537.48 mGy.cm HISTORY: Dizziness. Left-sided weakness. Stroke Alert TECHNIQUE: Multiaxial CT images of the head were performed without the use of intravenous contrast. Automated exposure control was utilized for this study. A dose lowering technique was utilized adhering to the principles of ALARA. Comparison: Head CT 12/22/2020. Findings: The paranasal sinuses and mastoid air cells are clear. The calvarium and skull base are intact. The ventricles and sulci are within normal limits. There is no mass, hematoma, midline shift, or acute infarct. Impression: No acute intracranial abnormality. ACT 112: Negative or not required by law. Electronically signed by: Leonard Lucia M.D. 07/21/2022 7:09 PM ECG Additional Comments: Atrial fibrillation with slow ventricular response Low voltage QRS Cannot rule out Anterior infarct (cited on or before 07-AUG-2021) Abnormal ECG When compared with ECG of 05-JUN-2022 14:18, Vent. rate has decreased BY 54 BPM Minimal criteria for Inferior infarct are no longer Present T wave inversion now evident in Anterior leads Code Status & VTE Plan Code Status Full code VTE Prophylaxis Plan VTE Prophylaxis will be ordered: Yes Supervising Physician Co-Signing Physician Notes Patient seen and examined, chart reviewed, case discussed with SARA Payne and I agree with assessment plan as documented above. In brief, patient is an 82-year-old female with history of COPD, hypertension, hyperlipidemia, superior mesenteric artery syndrome status post abdominal vascular surgery with stent placement, atrial fibrillation on Xarelto Patient presents with episode of dizziness, visual disturbance and transient weakness of her left leg. Symptoms have since resolved. Patient reports she feels well at this time. On physical exam she is afebrile, hemodynamically stable, no acute distress. HEENTnormocephalic/atraumatic, pupils equal and reacting, mucous membranes, neck supple, postsurgical changes of the tongue base and oropharynx Heart+ S1, S2, irregular, no murmurs/rubs gallops LungsCTA Abdomenpositive bowel sounds, soft, nontender, nondistended Extremitieswarm, well-perfused, no clubbing/cyanosis/edema Neuromuscle strength 5 out of 5 in upper and lower extremities bilaterally, sensation to light touch intact, no facial droop, no dysarthria Labs and images reviewed. Hgb = 7.9, HCT = 25.6, INR = 1.6 Chest x-ray with small left pleural effusion. Airspace opacity favoring atelectasis Assessment/[id number] female with history of atrial fibrillation on Xarelto anticoagulation, COPD, hypertension, hyperlipidemia presenting with transient strokelike symptomsvisual disturbance, numbness of the left leg. Symptoms have now resolved. Patient feels back to baseline. Possible TIA Continue aspirin and Xarelto Increase atorvastatin to 40 mg daily Check MRI, transthoracic echo Remainder of plan as above PG Care Time/CCT Total # of Minutes Spent Total Time Spent with Patient: Total time spent is greater than 50% in coordination of care (as documented) at patient's floor/unit and/or counseling patient: Coding [place] [address] INT INP/OBS CARE 3/75MIN Patient Type Established Medical Decision Making High Complexity Diagnoses Stroke-like symptoms R29.90 Atrial fibrillation I48.11 Atrial fibrillation type: longstanding persistent COPD (chronic obstructive pulmonary disease) J44.9 COPD type: unspecified COPD Hypertension I10 Hypertension type: essential hypertension Hyperthyroidism E05.90 HLD (hyperlipidemia) E78.5 Gastritis K29.70 (2) Atrial fibrillation Atrial fibrillation type: longstanding persistent Qualified Code(s): I48.11 - Longstanding persistent atrial fibrillation (3) COPD (chronic obstructive pulmonary disease) COPD type: unspecified COPD Qualified Code(s): J44.9 - Chronic obstructive pulmonary disease, unspecified (4) Hypertension Hypertension type: essential hypertension Qualified Code(s): I10 - Essential (primary) hypertension
[2022-07-21] MEDS ORDERED: PHARMACIST DISCHARGE MED REC CONSULT PRN (20:33)
[2022-07-21] MEDS ORDERED: ATORVASTATIN 40 MG TAB PO SCH (23:46)
[2022-07-21] MEDS ORDERED: LATANOPROST 0.005% OP SOLN 2.5 ML BTL OPB SCH (23:46)
[2022-07-21] MEDS ORDERED: ALBUTEROL HFA 8 GM INHALER INH PRN (23:46)
[2022-07-21] MEDS ORDERED: ALBUT/IPRATROP 3MG/0.5MG NEB 3 ML VIAL INH PRN (23:46)
[2022-07-22] MEDS ORDERED: ENALAPRIL MALEATE 10 MG TAB PO SCH (00:15)
[2022-07-22] MEDS ORDERED: RIVAROXABAN 15 MG TAB PO SCH (00:30)
[2022-07-22] MEDS: PANTOprazole 40 MG TAB PO SCH ×2 (00:34→08:01)
[2022-07-22] MEDS ORDERED: FLUTICASONE PROPIONATE NA SPR 16 GM BTL STA (01:43)
[2022-07-22] MEDS ORDERED: methIMAzole 5 MG TABLET PO SCH (06:30)
[2022-07-22 07:34] LABS: Basophils # (auto) 0.05 K/uL (0-0.2); Basophils % (auto) 0.6 %; Eosinophils # (auto) 0.23 K/uL (0-0.50); Eosinophils % (auto) 2.7 %; Hematocrit (blood only) 22.3 % (37.0-47.0); Immature Granulocytes # (auto) 0.05 K/uL (0.01-0.20); Immature Granulocytes % (auto) 0.6 %; Lymphocytes # (auto) 2.12 K/uL (1.2-3.4); Lymphocytes % (auto) 24.8 %; Mean Corpuscular Hemoglobin 28.1 pg (25.0-34.0); Mean Corpuscular Hgb Conc 31.4 g/dL (32.0-36.0); Mean Corpuscular Volume 89.6 fL (80.0-100.0); Monocytes # (auto) 0.91 K/uL (0.11-0.59); Monocytes % (auto) 10.6 %; Neutrophils % (auto) 60.7 %; Platelet Count 292 K/uL (130-400); RDW Coefficient of Variation 18.7 % (11.5-14.5); RDW Standard Deviation 60.7 fL (36.4-46.3); Red Blood Count 2.49 M/uL (4.20-5.40); White Blood Count 8.56 K/ul (4.8-10.8)
[2022-07-22 07:57] LABS: Ovalocytes 1+; Polychromasia 1+
[2022-07-22 08:20] LABS: Albumin Level 2.3 gm/dl (3.4-5.0); BUN Creatinine Ratio 19.3 (10-20); Bilirubin,Total 0.4 mg/dl (0.2-1.0); Calcium 7.7 mg/dl (8.5-10.1); Chol HDL Ratio 2.3 (0-5); Creatinine Clr Calc Pharmacy 37.9 ml/min; Est GFR (African American) 77.2 ml/min; Est GFR (Non-African American) 66.6 ml/min; Globulin 2.2 gm/dl (2.5-4.0); Magnesium 1.8 mg/dl (1.7-2.4); Potassium 3.3 mmol/L (3.5-5.1); Total Protein 4.5 gm/dl (6.0-8.3)
[2022-07-22] MEDS ORDERED: UMECLIDINIUM/VILANTEROL 62.5/25MCG 7 PUFFS/INHALER INH SCH (09:00)
[2022-07-22] MEDS ORDERED: FLUTICASONE FUROATE 100MCG 14 PUFFS/INHALER INH SCH (09:00)
[2022-07-22] MEDS ORDERED: dilTIAZem HCL 240 MG CAPCR PO SCH (09:00)
[2022-07-22] MEDS ORDERED: FERROUS SULFATE 325 MG TAB PO SCH (09:00)
[2022-07-22] MEDS ORDERED: ASPIRIN 81 MG CHEW PO SCH (09:00)
[2022-07-22] MEDS ORDERED: NON-FORMULARY MEDICATION (Fluticasone-Umeclidin-Vilanter [Trelegy Ellipta] 100-62.5-25 mcg INH SCH (09:00)
--- NOTE | 2022-07-22 10:45 | Electrocardiogram Report ---
Test Reason : Blood Pressure : / mmHG Vent. Rate : 058 BPM Atrial Rate : 250 BPM P-R Int : 000 ms QRS Dur : 078 ms QT Int : 414 ms P-R-T Axes : 000 043 053 degrees QTc Int : 406 ms Atrial fibrillation with slow ventricular response Low voltage QRS Cannot rule out Anterior infarct (cited on or before 07-AUG-2021) Abnormal ECG When compared with ECG of 05-JUN-2022 14:18, Vent. rate has decreased BY 54 BPM Minimal criteria for Inferior infarct are no longer Present T wave inversion now evident in Anterior leads Confirmed by Wolfgang Wilson ([id number]) on 07/22/2022 10:44:56 AM Referred By: REFERRED SELF Confirmed By:Wolfgang Wilson
[2022-07-22 11:15] LABS: Estimated Average Glucose 100 mg/dl; Hemoglobin A1C 5.1 % (4.5-5.6)
--- NOTE | 2022-07-22 12:13 | Magnetic Resonance Report ---
MRI OF THE BRAIN WITHOUT CONTRAST CLINICAL HISTORY: TIA workup COMPARISON STUDY: Head CT July 21, 2022. TECHNIQUE: Utilizing a 1.5 Yara magnet and dedicated coil, multiplanar, multiecho imaging of the bra in was performed without IV contrast. FINDINGS: There are no foci of restricted diffusion to suggest acute infarct. No acute intracranial h emorrhage, midline shift or mass effect is present. Ventricular system is normal. Basal cisterns are patent. There are no extra-axial collections. Flow-voids for the major intracranial vessels are prese nt. No intracranial masses are identified on this unenhanced exam. Multiple small white matter T2 hyp erintense foci suggest mild small vessel disease. There is no suspicious calvarial marrow replacement . There is no evidence for sinusitis. There is no mastoid fluid. IMPRESSION: No acute intracranial findings. ACT 112: Negative or not required by law. Electronically signed by: Moshe Lucas M.D. 07/22/2022 12:11 PM
[2022-07-22] MEDS ORDERED: STROKE PATIENT DISCHARGE STA (12:23)
--- NOTE | 2022-07-22 12:26 | XCELERA ---
[id number]
--- NOTE | 2022-07-22 12:58 | Discharge Summary ---
Date of Service July 22, 2022 Admission HPI Per Admitting Provider Lakeshia is an 82 year old female with a PMH significant for afib on Xarelto, hyperthyroidism, partial vocal cord paralysis, COPD, GERD, hyperlipidemia, HTN, anemia, and HFpEF (LVEF of 60% as of 04/18/22) who presented to the [facility] ED on 07/21/22 with a chief complaint of dizziness. In the ED the patient was found to be afebrile, hemodynamically stable, and stable on RA. Labs were remarkable for a WBC WNL, Hgb of 7.9 (down from 10.5 as of 07/05/22), stable platelets, INR of 1.6, Crr of 1.06 (baseline appears to be 0.8-0.9), corrected calcium of 8.7, LFT's WNL, Covid/Influenza/RSV negative. CT of the head was read as "No acute intracranial abnormality.". Chest xray was read as "Small left pleural effusion. Associated airspace opacity favors atelectasis although consolidation could appear similar. Radiographic follow-up is recommended.". At the time of the exam the patient was resting in bed in no acute distress with her Daughter sitting bedside, history was obtained from both. The patient underwent a recent vascular procedure for mesenteric ischemia at [facility] on 06/13/22. She states that she was told to hold her Xarelto two days prior to the procedure and restarted her Xarelto approximately 3 weeks ago when she was discharged home. Since then she has been doing well had a follow-up approximately one week ago. At that time she was also started on a daily baby aspirin, which she has been taking. She woke up this am feeling her her normal self and was able to get ready for the day without issue. This afternoon she was at the store with her daughter when she suddenly developed BL blurry vision. She denies losing complete vision in either eye and believes that the blurry vision was symmetrical. She then developed left LE weakness which caused her to feel unstable while walking and needed to sit down. By the time she arrived to the ED her symptoms had resolved, she confirms that her symptoms have resolved at the time of my exam. She was able to walk to the CT machine without issue for her CT head earlier. She was a former smoker approximately 30 years ago. She denies recent fever, chills, chest pain, SOB, heart palpitations, abd pain, nausea, vomiting, lightheadedness, dizziness, dysuria, hematuria, melena, bloody bowel movements, and recent falls. She and her daughter would prefer for her to stay at this time for complete workup of her symptoms. We discussed code status, she wishes to be a full code. Principal Diagnosis Stroke like symptoms Discharge Exam The patient is awake, alert and oriented 3, well developed and well nourished, normocephalic and atraumatic, lying in bed and in no acute distress. HEENT--PERRL, EOMI, mucous membranes and oropharynx mildly dry Neck--supple. No JVD. No bruits. Thyroid normal, trachea midline, no adenopathy. Heart--normal S1 and S2. No murmurs, rubs or gallops. Lungs--clear bilaterally, no respiratory distress, no accessory muscle use. Abdomen--normal bowel sounds and soft. Mild epigastric and left sided abdominal pain Extremities--no cyanosis or clubbing. No edema. Dermatologic--normal skin turgor, normal color, no abnormal lymph nodes, no rash. Neurologic--cranial nerves II through XII grossly intact. Rheumatologic--normal range of motion. Psychiatric--normal affect. Discharge Data Allergies Allergy/AdvReac Type Severity Reaction Status Date / Time adhesive tape AdvReac Intermediate PULLS SKIN Verified 06/28/22 18:45 OFF Consultations 07/21/22 19:29 ED Decision to Admit Stat Ordered Studies 07/21/22 16:42 CT head/brain wo con Stat 07/22/22 03:05 MR brain wo con Routine Hospital Course (1) Stroke-like symptoms: Now resolved CT head and MRI brain did not show any acute pathology d/c home (2) Atrial fibrillation: -Continue Diltiazem and Xarelto (3) COPD (chronic obstructive pulmonary disease): -Stable on RA -Continue home breathing treatments -Incentive spirometry (4) Hypertension: -Stable -Continue diltiazem and Benazepril (5) Hyperthyroidism: -Continue methimazole (6) HLD (hyperlipidemia): -Increased statin to 40 mg Po daily (7) Gastritis: -Continue pantoprazole Plan d/c home to follow up with regular PCP Total Time Total Time Spent Total Time Spent (In Minutes): 35 Discharge Plan Discharge Items Patient Disposition: Home - Self-Care Reason For Visit: STROKE-LIKE SYMPTOMS Discharge Diagnosis: stroke like symptoms-resolved Activity: Resume your previous activity Non-emergency contact: Primary Care Provider Call non-emergency contact if: you have any medication questions and your symptoms worsen Follow-up/Referrals: Carlton Mendez III, CRNP [Primary Care Provider] - 07/30/22 4:00 pm Diet: Regular Addtl Attending Provider Instructions: please make appointment to follow up with your regular PCP Pending Studies at Discharge: No Stand-Alone Forms: My [facility] Labs, Smoking Cessation Medications and DC Order Prescriptions: Continued ipratropium-albuterol 0.5 mg-3 mg(2.5 mg base)/3 mL solution for nebulization 3 ml inhalation BID PRN (Reason: shortness of breath or wheezing) Qty: 15 1RF Rx Instructions: INHALE 3 ML INHALATION TWICE A DAY NEEDED FOR SHORTNESS OF BREATH OR WHEEZING ferrous sulfate [Iron (ferrous sulfate)] 325 mg (65 mg iron) tablet 325 mg PO QAM Qty: 90 1RF atorvastatin 10 mg tablet 10 mg PO QPM Qty: 90 1RF Trelegy Ellipta 100-62.5-25 mcg blister with device 1 inh inhalation DAILY Qty: 60 2RF benazepril 20 mg tablet 40 mg PO QPM Qty: 180 3RF Xarelto 20 mg tablet 20 mg PO QPM Qty: 90 3RF Rx Instructions: must administer with evening meal pantoprazole 40 mg tablet,delayed release (DR/EC) 40 mg PO BID Qty: 180 3RF Rx Instructions: TAKES QAM & MID AFTERNOON albuterol sulfate [Ventolin HFA] 90 mcg/actuation HFA aerosol inhaler 2 puff INHALATION QID PRN (Reason: Shortness Of Breath Or Wheezing) Qty: 8.5 1RF latanoprost [Xalatan] 0.005 % drops 1 drp OPB HS diltiazem HCl 240 mg capsule,extended release 24hr 240 mg PO QAM Rx Instructions: TAKE 1 CAPSULE BY MOUTH EVERY DAY methimazole 5 mg tablet 5 mg PO DAILYBB aspirin 81 mg Tablet,Chewable 81 mg PO DAILY Discharge Orders: Discharge Order (Routine); Ordered 07/22/22 Ordered By: [place] Javed Admission Data Admit Date/Time: 07/21/22 20:32 Attending Provider: Montana Javed Admit Provider: Jaye Doran Primary Care Provider: Carlton Mendez III Other Providers: Jaye Doran Other Interventions: Discharge Summary Assessment (RN) Last Done: 07/22/22 12:31 Coding Level of Care Code HOSP INP/OBS DISCH >30 MIN Diagnoses Stroke-like symptoms R29.90 Atrial fibrillation I48.11 Atrial fibrillation type: longstanding persistent COPD (chronic obstructive pulmonary disease) J44.9 COPD type: unspecified COPD Hypertension I10 Hypertension type: essential hypertension Hyperthyroidism E05.90 HLD (hyperlipidemia) E78.5 Gastritis K29.70 Time Spent (min) 35
== END 2022-07-22 13:53 | disposition home or self-care (01) ==
LOC: 2W 16:32 → ED 16:32 → SUATTDRO 20:32 → 2W 23:07

== ENCOUNTER 2022-07-26 11:32 | Inpatient (IN) ==
[2022-07-26] MEDS ORDERED: oxyCODONE HCL IR 5 MG TAB (IMMEDIATE RELEASE) PO STA (12:03)
--- NOTE | 2022-07-26 12:34 | Emergency Department Note ---
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 The patient denies any head strike or LOC. Patient denies any chest pains. Patient is on blood thinners. CT of the head was obtained along with a plain film of the left hip and the patient was ordered by mouth oxycodone. Patient CT negative. The patient's left plain films concerning for fracture. Additional blood work was ordered and I speak with the on-call hospitalist service Dr. Elise. I did receive a call from the patient's PCP Carlton Brunson and noted the patient's hemoglobin was less than 7 from outpatient blood work today. I did convey this to the inpatient hospitalist service who had already consented the patient ordered blood. I did also speak with Dr. Harris with the orthopedic service through secure messaging state the patient will be admitted to the medicine service with a left-sided hip fracture. The patient's blood work shows a white count of 17 with a hemoglobin of 6.4. Patient's platelet count is unremarkable. Kidney function with prerenal azotemia. COVID-negative. Additional anemia work-up deferred to the inpatient team Prior /Outside records reviewed: None Differential diagnosis: Fracture, dislocation, contusion, intra-abdominal, sprain, strain, ICH, com partment syndrome, rhabdomyolysis, as well as other pathologies. Diagnostics, as interpreted by me: ECG: A-fib, ventricular rate of 68, normal QRS duration, normal axis, no ST elevations. Cardiac monitoring: An order was placed for continuous cardiac monitoring. The monitor shows a rate of 81 with irregular irregular rhythm. Patient was placed on pulse oximetry Medical decision rules: None Imaging studies: See below HPI: Patient presents after suffering a fall prior to arrival. The patient states that she had gone to get blood work and then was going to the post office and does not believe that she cleared her foot over a curb falling striking the left side. Patient states that she was unable to get up and walk and did have left-sided hip pain. Patient denies any chest pain shortness of breath nausea or vomiting. Patient denies any head or neck pain. Patient does not believe that she struck her head had no LOC. Patient does take Xarelto for known history of A-fib. Patient did not take anything for pain prior to arrival. Patient denies any chest back or abdominal pain and no bilateral upper extremity or right lower extremity pain PAST MEDICAL HISTORY: See Below PAST SURGICAL HISTORY: See Below SOCIAL HISTORY: See Below HOME MEDICATIONS: See Below ALLERGIES: See Below VITALS: See Below PHYSICAL EXAMINATION: GENERAL: NAD, wearing a mask, non-toxic. EYE EXAM: Normal conjunctiva. PERRL, no anisocoria and EOM's grossly intact w/o pain. Head: Normocephalic atraumatic. NECK: Supple, no nuchal rigidity, no adenopathy, non-tender. No signs of meningismus. FROM of the neck with good chin to chest and neck extension. No stridor. No midline C-spine TTP LUNGS: Clear to auscultation. Normal chest wall mechanics. HEART: Irregularly irregular, no MRG. ABDOMEN: Abdomen soft, non-tender, normo-active bowel sounds, no masses, no rebound or guarding. BACK: No CVA TTP. SKIN: No rashes and no bruising. UPPER EXTREMITIES: Upper extremities are grossly normal. No TTP or deformity LOWER EXTREMITIES: Left-sided hip pain, neurovascular intact distally, decreased range of motion secondary to pain. Left lower extremity slightly shortened and externally rotated. Sensation intact. NEURO EXAM: A&O x3, cranial nerves II-XII grossly intact, normal speech, moves all 4 extremities. Past Med/Surg History Medical History Acid reflux Adrenal nodule Atrial fibrillation Dx 4-5 years ago; on xarelto; hx cardioversion; follows with Dr. Pat COPD (chronic obstructive pulmonary disease) COHN (dyspnea on exertion) Glaucoma History of uterine cancer dx > 5 years; treated surgically HLD (hyperlipidemia) Hypertension Hyperthyroidism Poor historian Pulmonary nodules SMAS (superior mesenteric artery syndrome) Vocal cord paralysis, unilateral complete Surgical History History of anesthesia reaction SLOW TO WAKE UP History of cardioversion History of cataract surgery RT/LEFT History of colonoscopy History of endoscopy History of esophagogastroduodenoscopy (EGD) History of total abdominal hysterectomy and bilateral salpingo-oophorectomy S/P cholecystectomy Family History Daughter Breast cancer Mother Cancer Uterine cancer Father Heart disease Sister Family history of diabetes mellitus Brother Family history of diabetes mellitus Aunt Family history of diabetes mellitus Aunt Family history of diabetes mellitus Other Family history non-contributory Hypertension No family history of adverse response to anesthesia Denies family history of Colon cancer Ovarian cancer Prostate cancer Myocardial infarction Social History Smoking Status: Former smoker Tobacco Type: Cigarettes Second Hand Exposure: No; Hx Alcohol Use: No Hx Substance Use: No Preferred Language: Iraqi Communication Ability: Effective Visual Impairment: No Limitations Hearing Ability: Normal Landscape Supervisor Required: No Beliefs That Will Affect Care: None marital status: / Current Living Situation: Alone current occupational status: retired How many Children do You have: 3 Feels Safe at Home: Yes Childhood Exposure to Second-Hand Smoke: Yes Diet Comment: regular caffeine: Yes during the past year weight has: remained stable Dental Care, Regularly: No Physical Activity Frequency: Does not Exercise Seatbelt Use: always Sunscreen Use: Yes Assistive Devices: Denture - Upper and Denture - Lower Allergies Allergies Allergy/AdvReac Type Severity Reaction Status Date / Time adhesive tape AdvReac Intermediate PULLS SKIN Verified 07/26/22 16:25 OFF Home Meds Home Medications Medication Instructions Recorded Confirmed latanoprost 0.005 % eye drops 1 drp OPB HS 11/20/18 07/26/22 (Xalatan) diltiazem HCl 240 mg 240 mg PO QAM 03/24/22 07/26/22 capsule,extended release 24 hr methimazole 5 mg tablet 5 mg PO DAILYBB 06/05/22 07/26/22 aspirin 81 mg chewable tablet 81 mg PO DAILY 07/21/22 07/26/22 rivaroxaban 20 mg tablet (Xarelto) 20 mg PO QDD 07/26/22 07/26/22 Previous Rx's Medication Instructions Recorded pantoprazole 40 mg tablet,delayed 40 mg PO BID #180 tabs 07/17/21 release ipratropium 0.5 mg-albuterol 3 mg 3 ml inhalation BID PRN shortness 08/24/21 (2.5 mg base)/3 mL nebulization of breath or wheezing #15 mL soln ferrous sulfate 325 mg (65 mg 325 mg PO QAM #90 tabs 01/31/22 iron) tablet (Iron (ferrous sulfate)) albuterol sulfate 90 mcg/actuation 2 puff inhalation QID PRN 02/22/22 aerosol inhaler (Ventolin HFA) Shortness Of Breath Or Wheezing #8.5 grams atorvastatin 10 mg tablet 10 mg PO QPM #90 tabs 03/05/22 fluticasone fur. 100 mcg-umeclid 1 inh inhalation DAILY #60 ea 04/23/22 62.5 mcg-vilant 25 mcg inhalat.powder (Trelegy Ellipta) benazepril 20 mg tablet 40 mg PO QPM #180 tabs 04/25/22 Results & Data (ED) Vital Signs Vital Signs - 24 hr 07/26/22 11:50 07/26/22 15:08 07/26/22 16:00 Temperature 36.9 C Temperature Source Oral Pulse Rate 83 Pulse Rate [Apical] 70 Pulse Rhythm Regular Pulse Strength Normal Respiratory Rate 18 18 Respiratory Effort / Characteristics Non-Labored Respiratory Depth Normal Respiratory Pattern Regular Blood Pressure 118/62 Blood Pressure [Left Arm] 109/47 L Blood Pressure Mean 80 Blood Pressure Mean [Left Arm] 67 Blood Pressure Position Lying Pulse Oximetry 98 94 97 Oxygen Delivery Method Room Air Sepsis Recent Fever Within 48 Hours No Sepsis New/Unexplained Change in Mental Status No Sepsis Action Taken by Nursing No Action Required Home Medications Current Medication List: was personally reviewed by me Laboratory Data Attestation: I reviewed the patient's lab results. 07/26/22 15:36 07/26/22 15:36 Lab Results 07/26/22 07/26/22 07/26/22 Range/Units 15:36 15:36 15:36 WBC 17.26 H (4.8-10.8) K/ul RBC 2.16 L (4.20-5.40) M/uL Hgb 6.4 L* (12.0-16.0) g/dl Hct 20.1 L* (37.0-47.0) % MCV 93.1 (80.0-100.0) fL MCH 29.6 (25.0-34.0) pg MCHC 31.8 L (32.0-36.0) g/dL RDW Std Deviation 70.4 H (36.4-46.3) fL RDW Coeff of Rosio 21.2 H (11.5-14.5) % Plt Count 337 (130-400) K/uL MPV 10.9 (9.4-12.4) fL Immature Gran % (Auto) 0.5 % Neut % (Auto) 77.8 % Lymph % (Auto) 13.2 % [place] % (Auto) 8.1 % Eos % (Auto) 0.2 % Baso % (Auto) 0.2 % Neut # (Auto) 13.42 H (1.40-6.50) K/uL Lymph # (Auto) 2.28 (1.2-3.4) K/uL [place] # (Auto) 1.40 H (0.11-0.59) K/uL Eos # (Auto) 0.03 (0-0.50) K/uL Baso # (Auto) 0.04 (0-0.2) K/uL Immature Gran # (Auto) 0.09 (0.01-0.20) K/uL Polychromasia 1+ Echinocytes 1+ Acanthocytes (Spur) 1+ Sodium 135 L (136-145) mmol/L Potassium 3.4 L (3.5-5.1) mmol/L Chloride 104 (98-107) mmol/L Carbon Dioxide 26 (21-32) mmol/L Anion Gap 5 (3-11) BUN 29 H (6-23) mg/dl Creatinine 0.82 (0.6-1.2) mg/dl Est Cr Clr Drug Dosing 39.3 ml/min Est GFR ( Amer) 78.3 ml/min Est GFR (Non-Af Amer) 67.6 ml/min BUN/Creatinine Ratio 35.4 H (10-20) Glucose 83 (70-99(Fasting)) mg/dl Calcium 8.0 L (8.5-10.1) mg/dl Total Bilirubin 0.4 (0.2-1.0) mg/dl AST 14 (13-39) U/L ALT 10 (7-52) U/L Alkaline Phosphatase 62 (34-104) U/L Total Protein 5.2 L (6.0-8.3) gm/dl Albumin 2.5 L (3.4-5.0) gm/dl Globulin 2.7 (2.5-4.0) gm/dl Albumin/Globulin Ratio 0.9 (0.9-2) SARS-CoV-2, RNA, NAAT NEGATIVE (NEGATIVE) Crossmatch 07/26/22 Range/Units 16:06 WBC (4.8-10.8) K/ul RBC (4.20-5.40) M/uL Hgb (12.0-16.0) g/dl Hct (37.0-47.0) % MCV (80.0-100.0) fL MCH (25.0-34.0) pg MCHC (32.0-36.0) g/dL RDW Std Deviation (36.4-46.3) fL RDW Coeff of Rosio (11.5-14.5) % Plt Count (130-400) K/uL MPV (9.4-12.4) fL Immature Gran % (Auto) % Neut % (Auto) % Lymph % (Auto) % [place] % (Auto) % Eos % (Auto) % Baso % (Auto) % Neut # (Auto) (1.40-6.50) K/uL Lymph # (Auto) (1.2-3.4) K/uL [place] # (Auto) (0.11-0.59) K/uL Eos # (Auto) (0-0.50) K/uL Baso # (Auto) (0-0.2) K/uL Immature Gran # (Auto) (0.01-0.20) K/uL Polychromasia Echinocytes Acanthocytes (Spur) Sodium (136-145) mmol/L Potassium (3.5-5.1) mmol/L Chloride (98-107) mmol/L Carbon Dioxide (21-32) mmol/L Anion Gap (3-11) BUN (6-23) mg/dl Creatinine (0.6-1.2) mg/dl Est Cr Clr Drug Dosing ml/min Est GFR ( Amer) ml/min Est GFR (Non-Af Amer) ml/min BUN/Creatinine Ratio (10-20) Glucose (70-99(Fasting)) mg/dl Calcium (8.5-10.1) mg/dl Total Bilirubin (0.2-1.0) mg/dl AST (13-39) U/L ALT (7-52) U/L Alkaline Phosphatase (34-104) U/L Total Protein (6.0-8.3) gm/dl Albumin (3.4-5.0) gm/dl Globulin (2.5-4.0) gm/dl Albumin/Globulin Ratio (0.9-2) SARS-CoV-2, RNA, NAAT (NEGATIVE) Crossmatch See Detail Administered Medications Lactated Ringer's (Lr) 1,000 mls @ 150 mls/hr IV .Q6H40M HUNG Stop: 08/25/22 13:44 Last Admin: 07/26/22 16:18 Dose: 150 mls/hr Documented By: MALA Potassium Chloride (K Genaro / Wtr) 10 meq in 100 mls @ 100 mls/hr IV Q1H HUNG Stop: 07/26/22 18:44 Last Admin: 07/26/22 17:06 Dose: 100 mls/hr Documented By: MALA Morphine Sulfate (Morphine Sulfate 2 Mg/Ml Carp) 2 mg IV Q1H PRN PRN Reason: Moderate Pain (Rating 3,4,5,6) Stop: 08/09/22 13:41 Last Admin: 07/26/22 16:18 Dose: 2 mg Documented By: MALA Discontinued Medications Hydromorphone HCl (Hydromorphone Inj 0.5 Mg/0.5 Ml Syr) 0.25 mg IV NOW STA Stop: 07/26/22 16:39 Last Admin: 07/26/22 16:47 Dose: 0.25 mg Documented By: MALA Hydromorphone HCl (Hydromorphone Inj 0.5 Mg/0.5 Ml Syr) 0.5 mg IV NOW STA Stop: 07/26/22 16:58 Last Admin: 07/26/22 17:05 Dose: 0.5 mg Documented By: MALA Acetaminophen (Ofirmev) 1,000 mg in 100 mls @ 400 mls/hr IV NOW STA Stop: 07/26/22 16:47 Last Admin: 07/26/22 16:47 Dose: 400 mls/hr Documented By: MALA Oxycodone HCl (Oxycodone Hcl Ir 5 Mg Tab (Immediate Release)) 2.5 mg PO NOW STA Stop: 07/26/22 12:04 Last Admin: 07/26/22 12:26 Dose: 2.5 mg Documented By: FINN Imaging Data Radiologist's Impression: Hip/Pelvis X-Ray 07/26/22 12:03 XR hip LT 2V w pelvis HISTORY: 82 years-old Female hip pain acute left-sided hip pain status post fall COMPARISON: CT abdomen and pelvis 06/08/2022 TECHNIQUE: AP view of the pelvis with 2 views of the left hip FINDINGS: Arterial calcifications. The patient is rotated which limits the study. Demineralized appearance of the bones. Mild to moderate osteoarthritis of the hips. Linear lucencies are noted projected over the intertrochanteric left femur. Additionally, skin folds are also noted involving the upper left thigh. IMPRESSION: 1. Limited exam secondary to positioning. 2. Linear lucencies projected over the intertrochanteric left femur are suspicious for an acute intertrochanteric nondisplaced fracture. Skinfolds however could cause a similar appearance. Consider repositioning with follow-up imaging. ACT 112: Negative or not required by law. The above report was generated using voice recognition software. It may contain grammatical, syntax or spelling errors. Electronically signed by: Yuval Guardado M.D. 07/26/2022 1:[address] 07/26/22 12:34 CT head/brain wo con CLINICAL HISTORY: fall, on xarelto Technique: Contiguous axial CT images of the head were acquired from the base of the skull to the vertex without intravenous contrast administration. Images were viewed in brain, subdural and bone windows. Automated dose lowering techniques and/or adjustment according to patient size were utilized for this exam. Comparison: Comparison is made to CT head 07/21/2022 Findings: The ventricles, basal cisterns, and cerebral sulci are normal. There is no acute intracranial hemorrhage or evidence of acute territorial infarction. Neither mass effect, shift of the midline structures, nor abnormal extra-axial fluid collections are shown. Imaged portions of the paranasal sinuses and mastoid air cells are clear. The orbits appear normal. There are no acute fractures of the calvaria or scalp swelling. Impression: No acute intracranial hemorrhage, no evidence of acute territorial infarction or other acute intracranial disease process. ACT 112: Negative or not required by law. Electronically signed by: Pineda Bill M.D. 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 Comparison: Comparison is made to chest radiograph 07/21/2022 FINDINGS: No lines and tubes are seen. Calcified aortic knob is seen. Linear density in the right lower lung likely represents atelectasis. Small left pleural effusion. IMPRESSION: Redemonstration of small left pleural effusion with associated atelectasis. Superimposed consolidation cannot be entirely excluded. ACT 112: Negative or not required by law. Electronically signed by: Pineda Bill M.D. 07/26/2022 1:59 PM Discharge Plan Visit Data Chief Complaint: Fall ED Provider: Damion Fabian Discharge Problem: Closed fracture of hip, Anemia, Hypocalcemia, Fall, Atrial fibrillation Forms Stand Alone Forms: [facility] [place] Prescriptions Prescriptions: No Action ipratropium-albuterol 0.5 mg-3 mg(2.5 mg base)/3 mL solution for nebulization 3 ml inhalation BID PRN (Reason: shortness of breath or wheezing) Qty: 15 1RF Rx Instructions: INHALE 3 ML INHALATION TWICE A DAY NEEDED FOR SHORTNESS OF BREATH OR WHEEZING ferrous sulfate [Iron (ferrous sulfate)] 325 mg (65 mg iron) tablet 325 mg PO QAM Qty: 90 1RF atorvastatin 10 mg tablet 10 mg PO QPM Qty: 90 1RF Trelegy Ellipta 100-62.5-25 mcg blister with device 1 inh inhalation DAILY Qty: 60 2RF benazepril 20 mg tablet 40 mg PO QPM Qty: 180 3RF pantoprazole 40 mg tablet,delayed release (DR/EC) 40 mg PO BID Qty: 180 3RF Rx Instructions: TAKE QAM & MID AFTERNOON albuterol sulfate [Ventolin HFA] 90 mcg/actuation HFA aerosol inhaler 2 puff INHALATION QID PRN (Reason: Shortness Of Breath Or Wheezing) Qty: 8.5 1RF latanoprost [Xalatan] 0.005 % drops 1 drp OPB HS diltiazem HCl 240 mg capsule,extended release 24hr 240 mg PO QAM methimazole 5 mg tablet 5 mg PO DAILYBB aspirin 81 mg Tablet,Chewable 81 mg PO DAILY Xarelto 20 mg tablet 20 mg PO QDD Rx Instructions: must administer with evening meal Referrals Referrals: Carlton Mendez III, CRNP [Primary Care Provider] -
--- NOTE | 2022-07-26 13:06 | CT Scan Report ---
CT head/brain wo con CLINICAL HISTORY: fall, on xarelto Technique: Contiguous axial CT images of the head were acquired from the base of the skull to the sundeep janell without intravenous contrast administration. Images were viewed in brain, subdural and bone windo ws. Automated dose lowering techniques and/or adjustment according to patient size were utilized for this exam. Comparison: Comparison is made to CT head 07/21/2022 Findings: The ventricles, basal cisterns, and cerebral sulci are normal. There is no acute intracranial hemorrh age or evidence of acute territorial infarction. Neither mass effect, shift of the midline structures , nor abnormal extra-axial fluid collections are shown. Imaged portions of the paranasal sinuses and mastoid air cells are clear. The orbits appear normal. There are no acute fractures of the calvaria or scalp swelling. Impression: No acute intracranial hemorrhage, no evidence of acute territorial infarction or other acute intracra nial disease process. ACT 112: Negative or not required by law. Electronically signed by: Pineda Bill M.D. 07/26/2022 1:05 PM
[2022-07-26] MEDS ORDERED: MoRPHine SULFATE 2 MG/ML CARP IV PRN (13:42)
--- NOTE | 2022-07-26 13:45 | XRay Report ---
XR hip LT 2V w pelvis HISTORY: 82 years-old Female hip pain acute left-sided hip pain status post fall COMPARISON: CT abdomen and pelvis 06/08/2022 TECHNIQUE: AP view of the pelvis with 2 views of the left hip FINDINGS: Arterial calcifications. The patient is rotated which limits the study. Demineralized appearance of t he bones. Mild to moderate osteoarthritis of the hips. Linear lucencies are noted projected over the intertrochanteric left femur. Additionally, skin folds are also noted involving the upper left thigh. IMPRESSION: 1. Limited exam secondary to positioning. 2. Linear lucencies projected over the intertrochanteric left femur are suspicious for an acute inter trochanteric nondisplaced fracture. Skinfolds however could cause a similar appearance. Consider repo sitioning with follow-up imaging. ACT 112: Negative or not required by law. The above report was generated using voice recognition software. It may contain grammatical, syntax o r spelling errors. Electronically signed by: Yuval Guardado M.D. 07/26/2022 1:44 PM
--- NOTE | 2022-07-26 14:01 | XRay Report ---
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 Comparison: Comparison is made to chest radiograph 07/21/2022 FINDINGS: No lines and tubes are seen. Calcified aortic knob is seen. Linear density in the right lower lung li cristian represents atelectasis. Small left pleural effusion. IMPRESSION: Redemonstration of small left pleural effusion with associated atelectasis. Superimposed consolidatio n cannot be entirely excluded. ACT 112: Negative or not required by law. Electronically signed by: Pineda Bill M.D. 07/26/2022 1:59 PM
--- NOTE | 2022-07-26 14:26 | History & Physical Report ---
Date of Service July 26, 2022 Assessment & Plan (1) Closed left hip fracture: Plan: Left hip fracture Patient did not have any syncope, chest pain, chest pressure, shortness of breath, difficulty breathing. - CT-H: No acute intracranial hemorrhage, no evidence of acute territorial infarction or other acute intracranial disease process. - XR Hip-Pelvis: 1. Limited exam secondary to positioning. 2. Linear lucencies projected over the intertrochanteric left femur are suspicious for an acute intertrochanteric nondisplaced fracture. Skinfolds however could cause a similar appearance. Consider repositioning with follow-up imaging. - CXR: Redemonstration of small left pleural effusion with associated atelectasis. Superimposed consolidation cannot be entirely excluded. Patient is without fever, chillsor Leukocytosis indicative of pneumonia. If hypoxia or other concerns develop can obtain Pro-Mauricio/CT at that time. Echo 07/22/2022 performed during TIA evaluation per hospitalization showed normal LV size, hyperdynamic at that time EF 70%, no regional wall motion abnormalities. Shunt was noted suggesting presence of PFO. At risk for paradoxic emboli, patient is on aspirin at baseline.Or leukocytosis Orthopedics consulted Patient last took rivaroxaban last evening, took aspirin morning of admission Anemia,? Occult GI bleed Hemoglobin noted to have down trended from prior levels of around 10.5, more recently 77.9 - Repeat hgb now 6.2 - Denies BRBPR, melena, epigastric pain. On detailed history has 'very dark brown BMs.' - Consented for blood, 1 unit pending transfusion, will check H&H following completion and then evaluate for second unit which is on hold - ASA/DOAC Iron studies pending MCV last 89 - Hgb trend pending - Hx EGD/[place] 03/2021. - Hx of SMA syndrome. Had a artery reconstruction by Dr. Coe At [facility] [place]. . Given concern for possible occult GI bleed, history of epigastric pain output none at present, and continued downtrending hemoglobin acutely worse with possible history of melena GI consulted. Blood being transfused, additional recommendations pending H&H stability Discussed DOAC treatment with coag clinic. Rivaroxaban may be poor choice given patient's very low BMI, although creatinine is generally less than 1 her age-adjusted clearance is very low. When stable would transition to Eliquis rather than rivaroxaban. History of TIA No acute TIA symptoms on admission. Past TIA, no CVA was evident on MRI. Was seen by PCP 07/26/2022 and was noted to have no residual/recurrent symptoms Patient reports fall was due to tripping over a curve, did not have any weakn ess/dizziness symptoms that led to her fall Aspirin temporarily held pending surgical evaluation and with hip fracture, resume postop orders surgical intervention is not anticipated Atrial fibrillation Continue diltiazem Xarelto held in the setting of hip fracture anticipating operative repair. Admitting EKG A-fib, no ST changes, QTc 350 COPD Stable on room air Incentive spirometry Continue home inhaler/formulary equivalent No wheezing, no signs of exacerbation Hypertension Continue diltiazem Benzepril held pending surgical evaluation Hypothyroidism Continue methimazole Hyperlipidemia Continue statin GERD Continue PPI, BID IV dosing ordered - GI consulted DVT prophylaxis: SCD, defer pharmacal prophylaxis pending surgical evaluation Diet: N.p.o.Fluids deferred in the setting of receiving blood transfusion. If hemoglobin rises and patient is euvolemic/hypovolemic will add maintenance fluid at that time. Disposition: PCU CODE STATUS: Full code (2) TIA (transient ischemic attack): (3) Anemia: (4) A-fib: (5) Stroke-like symptoms: (6) Hypokalemia: (7) Hypomagnesemia: (8) Hypertension: (9) LPRD (laryngopharyngeal reflux disease): (10) Hyperthyroidism: (11) Atrial fibrillation: History of Present Illness Primary Care Provider: Carlton Mendez, III, LUIZ Lakeshia Junior is a 82-year-old female with a past medical history of A-fib on Xarelto, COPD, GERD, hyperlipidemia, hypertension, anemia, heart failure with preserved ejection fraction last EF 60%, hypothyroidism who presented after she tripped over a curb and sustained a left hip fracture. She recommended for admission for operative repair of her left hip, recommended for admission to mi dical service given age/comorbidities and anticoagulant use Ground level fall, was walking when she tripped over a curb and fell to her left hip On Xarelto, did not strike head. CT-H naf. Patient reports that after she got out of the hospital she was doing okay, leg swelling has been improving and has not worsened. She has not had any chest pain, shortness of breath, lightheadedness, dizziness, difficulty breathing which contributed to her fall.She was seeing her PCP this morning when she tripped over the curb and had immediate pain causing her to be transported to the ER. She has had some gradual decrease in overall energy and easy exercise fatigue. Had been following up for anemia with a CBC drawn this morning. Initially denies but red blood per rectum and melena. On further increase notes that her bowel moods are generally very dark brown, is not sure if they have been black, have not been tarry. Does have history of SMA reconstruction, past history of reflux/GERD. Denies any epigastric pain, but does note she does have some burping/reflux per daughter She took her rivaroxaban last night, took her aspirin this morning Feels she has been breathing well, no cough/sputum production/fever/chills or shortness of breath. Medical History: Reviewed Medications: Reviewed Surgical History: Reviewed Allergies: Reviewed Social History: Reviewed Code Status: Full Code Allergies Allergy/AdvReac Type Severity Reaction Status Date / Time adhesive tape AdvReac Intermediate PULLS SKIN Verified 07/26/22 09:22 OFF Home Medications Medication Instructions Recorded Confirmed Type latanoprost 0.005 % eye drops 1 drp OPB HS 11/20/18 07/26/22 History (Xalatan) pantoprazole 40 mg tablet,delayed 40 mg PO BID #180 tabs 07/17/21 07/26/22 Rx release ipratropium 0.5 mg-albuterol 3 mg 3 ml inhalation BID PRN shortness 08/24/21 07/26/22 Rx (2.5 mg base)/3 mL nebulization of breath or wheezing #15 mL soln ferrous sulfate 325 mg (65 mg 325 mg PO QAM #90 tabs 01/31/22 07/26/22 Rx iron) tablet (Iron (ferrous sulfate)) albuterol sulfate 90 mcg/actuation 2 puff inhalation QID PRN 02/22/22 07/26/22 Rx aerosol inhaler (Ventolin HFA) Shortness Of Breath Or Wheezing #8.5 grams atorvastatin 10 mg tablet 10 mg PO QPM #90 tabs 03/05/22 07/26/22 Rx diltiazem HCl 240 mg 240 mg PO QAM 03/24/22 07/26/22 History capsule,extended release 24 hr fluticasone fur. 100 mcg-umeclid 1 inh inhalation DAILY #60 ea 04/23/22 07/26/22 Rx 62.5 mcg-vilant 25 mcg inhalat.powder (Trelegy Ellipta) benazepril 20 mg tablet 40 mg PO QPM #180 tabs 04/25/22 07/26/22 Rx methimazole 5 mg tablet 5 mg PO DAILYBB 06/05/22 07/26/22 History rivaroxaban 20 mg tablet (Xarelto) 20 mg PO QPM #90 tabs 07/12/22 07/26/22 Rx aspirin 81 mg chewable tablet 81 mg PO DAILY 07/21/22 07/26/22 History Past Med/Surg History Medical History Acid reflux Adrenal nodule Atrial fibrillation Dx 4-5 years ago; on xarelto; hx cardioversion; follows with Dr. Pat COPD (chronic obstructive pulmonary disease) COHN (dyspnea on exertion) Glaucoma History of uterine cancer dx > 5 years; treated surgically HLD (hyperlipidemia) Hypertension Hyperthyroidism Poor historian Pulmonary nodules SMAS (superior mesenteric artery syndrome) Vocal cord paralysis, unilateral complete Surgical History History of anesthesia reaction SLOW TO WAKE UP History of cardioversion History of cataract surgery RT/LEFT History of colonoscopy History of endoscopy History of esophagogastroduodenoscopy (EGD) History of total abdominal hysterectomy and bilateral salpingo-oophorectomy S/P cholecystectomy Family History Daughter Breast cancer Mother Cancer Uterine cancer Father Heart disease Sister Family history of diabetes mellitus Brother Family history of diabetes mellitus Aunt Family history of diabetes mellitus Aunt Family history of diabetes mellitus Other Family history non-contributory Hypertension No family history of adverse response to anesthesia Denies family history of Colon cancer Ovarian cancer Prostate cancer Myocardial infarction Social History Smoking Status: Former smoker Tobacco Type: Cigarettes Second Hand Exposure: No; Hx Alcohol Use: No Hx Substance Use: No Preferred Language: Burmese Communication Ability: Effective Visual Impairment: No Limitations Hearing Ability: Normal Beam Dyer Operator Required: No Beliefs That Will Affect Care: None marital status: / Current Living Situation: Alone current occupational status: retired How many Children do You have: 3 Feels Safe at Home: Yes Childhood Exposure to Second-Hand Smoke: Yes Diet Comment: regular caffeine: Yes during the past year weight has: remained stable Dental Care, Regularly: No Physical Activity Frequency: Does not Exercise Seatbelt Use: always Sunscreen Use: Yes Assistive Devices: Denture - Upper and Denture - Lower Review of Systems Review of Systems: All systems reviewed & are unremarkable except as noted in HPI & below Physical Exam Physical Exam: General: A&Ox3. NAD. Cooperative. HEENT: Atraumatic, normocephalic.Vision/hearing intact.Mild conjunctival pallor Pulm: CTAB A&P. -wheezes, -rales, -rhonchi. Symmetrical chest rise. No increased work of breathing. No respiratory distress. Cardiac: irir, -mrg. Radial pulses intact and symmetrical. Abdominal: Nontender, nondistended, soft. BS present. Extremities: Warm, dry. Mild pitting edema of the left and right lower ex remedies with SHANNON hose on, improved from prior per patient. Left leg is externally rotated and shortened. Ankle dorsiflexion/plantarflexion 5/5, additional left hip testing is limited by severe pain. Sensation soft touch is intact in the feet bilaterally. PT pulses intact bilaterally. Results & Data Results & Data ([facility]) Vital Signs (Past 12 Hours) Vital Signs Temp Pulse Resp BP Pulse Ox O2 Del Method 07/26/22 11:50 36.9 C 83 18 118/62 98 Room Air PG Care Time/CCT Total # of Minutes Spent Total Time Spent with Patient: Total time spent is greater than 50% in coordination of care (as documented) at patient's floor/unit and/or counseling patient: Coding Level of Care Code 29119 INT INP/OBS CARE 3/75MIN Diagnoses Closed left hip fracture S72.002A TIA (transient ischemic attack) G45.9 Anemia D64.9 Anemia type: unspecified type A-fib I48.91 Atrial fibrillation type: unspecified Stroke-like symptoms R29.90 Hypokalemia E87.6 Hypomagnesemia E83.42 Hypertension I10 Hypertension type: essential hypertension LPRD (laryngopharyngeal reflux disease) K21.9 Hyperthyroidism E05.90 (3) Anemia Anemia type: unspecified type Qualified Code(s): D64.9 - Anemia, unspecified (4) A-fib Atrial fibrillation type: unspecified Qualified Code(s): I48.91 - Unspecified atrial fibrillation (8) Hypertension Hypertension type: essential hypertension Qualified Code(s): I10 - Essential (primary) hypertension
[2022-07-26] MEDS ORDERED: SODIUM CHLORIDE 0.9% 250 ML IV PRN (15:07)
[2022-07-26 16:11] LABS: Hematocrit (blood only) 20.1 % (37.0-47.0); Hemoglobin 6.4 g/dl (12.0-16.0); Mean Corpuscular Hemoglobin 29.6 pg (25.0-34.0); Mean Corpuscular Hgb Conc 31.8 g/dL (32.0-36.0); Mean Corpuscular Volume 93.1 fL (80.0-100.0); Mean Platelet Volume 10.9 fL (9.4-12.4); Platelet Count 337 K/uL (130-400); RDW Coefficient of Variation 21.2 % (11.5-14.5); RDW Standard Deviation 70.4 fL (36.4-46.3); Red Blood Count 2.16 M/uL (4.20-5.40); White Blood Count 17.26 K/ul (4.8-10.8)
[2022-07-26] MEDS: LACTATED RINGER'S 1,000 ML IV SCH ×2 (16:18→21:04)
[2022-07-26 16:22] LABS: Albumin Globulin Ratio 0.9 (0.9-2); Albumin Level 2.5 gm/dl (3.4-5.0); BUN Creatinine Ratio 35.4 (10-20); Bilirubin,Total 0.4 mg/dl (0.2-1.0); Creatinine Clr Calc Pharmacy 39.3 ml/min; Est GFR (African American) 78.3 ml/min; Est GFR (Non-African American) 67.6 ml/min; Globulin 2.7 gm/dl (2.5-4.0); Potassium 3.4 mmol/L (3.5-5.1); Total Protein 5.2 gm/dl (6.0-8.3)
[2022-07-26 16:29] LABS: Acanthocytes 1+; Basophils # (auto) 0.04 K/uL (0-0.2); Basophils % (auto) 0.2 %; Echinocytes 1+; Eosinophils # (auto) 0.03 K/uL (0-0.50); Eosinophils % (auto) 0.2 %; Immature Granulocytes # (auto) 0.09 K/uL (0.01-0.20); Immature Granulocytes % (auto) 0.5 %; Lymphocytes # (auto) 2.28 K/uL (1.2-3.4); Lymphocytes % (auto) 13.2 %; Monocytes % (auto) 8.1 %; Neutrophils # (auto) 13.42 K/uL (1.40-6.50); Neutrophils % (auto) 77.8 %; Polychromasia 1+
[2022-07-26] MEDS ORDERED: ACETAMINOPHEN 1,000 MG/100 ML VIAL IV STA (16:33)
[2022-07-26] MEDS ORDERED: HYDROmorphone INJ 0.5 MG/0.5 ML SYR IV STA ×2 (16:38→16:57)
[2022-07-26] MEDS: POTASSIUM CHLORIDE / WTR 10 MEQ/100 ML PLCT IV SCH ×2 (17:06→21:54)
[2022-07-26 17:22] LABS: INR 1.6 (0.9-1.1); Partial Thromboplastin Ratio 1.2; Partial Thromboplastin Time 32.5 Seconds (21.0-31.0); Prothrombin Time 16.3 Seconds (9.0-12.0)
[2022-07-26] MEDS ORDERED: HYDROmorphone INJ 1 MG/ML SYRINGE IV PRN (17:25)
[2022-07-26] MEDS ORDERED: HYDROmorphone INJ 0.5 MG/0.5 ML SYR IV PRN (17:25)
[2022-07-26] MEDS ORDERED: ACETAMINOPHEN 1,000 MG/100 ML VIAL IV PRN (17:25)
[2022-07-26 17:53] LABS: Appearance Urine Clear (Clear); Bacteria Urine Automated Negative (Negative); Bilirubin Urine Negative (Negative); Blood Urine Negative (Negative); Color Urine Yellow; Epithelial Cell Urine Auto >30 /lpf (0-5); Glucose Urine UA Negative (Negative); Ketones Urine Negative (Negative); Leukocyte Esterase Urine Trace (Negative); Nitrite Urine Negative (Negative); Protein Urine Negative (Negative); RBC Urine Automated 0-4 /hpf (0-4); Specific Gravity Urine 1.016 (1.000-1.030); Urobilinogen Urine Negative (Negative)
[2022-07-26] MEDS: LATANOPROST 0.005% OP SOLN 2.5 ML BTL OPB SCH (21:52)
[2022-07-26] MEDS: PANTOprazole 40 MG in SYRINGE 0 ML IV SCH (21:53)
[2022-07-26 22:03] LABS: Hematocrit (blood only) 24.1 % (37.0-47.0); Hemoglobin 7.7 g/dl (12.0-16.0)
[2022-07-26 23:22] LABS: Hematocrit (blood only) 22.7 % (37.0-47.0); Hemoglobin 7.3 g/dl (12.0-16.0)
[2022-07-27] MEDS: LACTATED RINGER'S 1,000 ML IV SCH ×3 (04:29→17:36)
[2022-07-27] MEDS: methIMAzole 5 MG TABLET PO SCH (04:59)
--- NOTE | 2022-07-27 05:35 | Electrocardiogram Report ---
Test Reason : Blood Pressure : / mmHG Vent. Rate : 068 BPM Atrial Rate : 192 BPM P-R Int : 000 ms QRS Dur : 084 ms QT Int : 330 ms P-R-T Axes : 000 039 015 degrees QTc Int : 350 ms Poor data quality, interpretation may be adversely affected Atrial fibrillation Low voltage QRS Cannot rule out Anterior infarct (cited on or before 07-AUG-2021) Nonspecific T wave abnormality Abnormal ECG When compared with ECG of 21-JUL-2022 17:57, No significant change Confirmed by Lance Priest ([id number]) on 07/27/2022 5:35:31 AM Referred By: REFERRED SELF Confirmed By:Lance Priest
[2022-07-27 07:07] LABS: Basophils # (auto) 0.04 K/uL (0-0.2); Basophils % (auto) 0.3 %; Eosinophils # (auto) 0.09 K/uL (0-0.50); Eosinophils % (auto) 0.7 %; Hematocrit (blood only) 22.8 % (37.0-47.0); Hemoglobin 7.4 g/dl (12.0-16.0); Immature Granulocytes # (auto) 0.06 K/uL (0.01-0.20); Immature Granulocytes % (auto) 0.5 %; Lymphocytes # (auto) 2.23 K/uL (1.2-3.4); Mean Corpuscular Hemoglobin 29.2 pg (25.0-34.0); Mean Corpuscular Hgb Conc 32.5 g/dL (32.0-36.0); Mean Corpuscular Volume 90.1 fL (80.0-100.0); Mean Platelet Volume 10.6 fL (9.4-12.4); Monocytes % (auto) 10.6 %; Neutrophils # (auto) 9.33 K/uL (1.40-6.50); Neutrophils % (auto) 70.9 %; Platelet Count 280 K/uL (130-400); RDW Coefficient of Variation 19.2 % (11.5-14.5); RDW Standard Deviation 62.3 fL (36.4-46.3); Red Blood Count 2.53 M/uL (4.20-5.40); White Blood Count 13.15 K/ul (4.8-10.8)
[2022-07-27 07:32] LABS: Polychromasia 1+
[2022-07-27 07:57] LABS: BUN Creatinine Ratio 29.9 (10-20); Calcium 7.5 mg/dl (8.5-10.1); Creatinine Clr Calc Pharmacy 33.2 ml/min; Est GFR (African American) 63.9 ml/min; Est GFR (Non-African American) 55.2 ml/min; Potassium 4.1 mmol/L (3.5-5.1)
[2022-07-27] MEDS ORDERED: NON-FORMULARY MEDICATION (Fluticasone-Umeclidin-Vilanter [Trelegy Ellipta] 100-62.5-25 mcg INH SCH (09:00)
[2022-07-27] MEDS: FLUTICASONE FUROATE 100MCG 14 PUFFS/INHALER INH SCH (09:20)
[2022-07-27] MEDS: UMECLIDINIUM/VILANTEROL 62.5/25MCG 7 PUFFS/INHALER INH SCH (09:20)
[2022-07-27] MEDS: PANTOprazole 40 MG in SYRINGE 0 ML IV SCH ×2 (09:22→20:09)
--- NOTE | 2022-07-27 10:49 | Gastrointestinal Consultation ---
Date of Consultation July 27, 2022 Assessment & Plan (1) Anemia: Discussed case with Dr. Su. I had discussed with the patient about whether she would agree to an egd to further evaluate anemia, but at this time she does not want to pursue. she prefers we just follow labs at this time. her hgb is stable after 1 unit prbc. she does complain of some reflux in the evening. - continue to trend Hgb/hct. transfuse as needed. - continue protonix 40mg bid. - no plan for endoscopy at this time. Supervising Physician Co-Signing Physician Notes Agree with PEDRO Quinones as above Abd: Soft, NT, ND, +BS Continue current therapy and supportive care No plans for EGD at this time, and patient is not interested either. History of Present Illness Reason for Consultation: ? occult GIB; history of SMA reconstruction/gasritis Requesting Physician: Corwin Elise MD Attending Physician: Zak Mcintyre History of Present Illness Patient is an 82 year old female with a past medical history of A-fib on Xarelto (last dose 07/25), COPD, GERD, hyperlipidemia, hypertension, anemia, heart failure with preserved ejection fraction last EF 60%, hypothyroidism, SMA syndrome with artery construction 06/13/22 at [facility] who presented to ED after she tripped over a curb and fell, and was found to have a left hip fracture.Upon evaluation in the ED she was found to have a Hgb of 6.2. she was given 1 unit of prbc at that time and hgb improved to 7.3. repeat testing shown hgb of 7.4. she tells me that she does not notice any bleeding or melena. she typically moves her bowels once a day and even skips days at times. stools can be dark brown but never melanotic. she has noticed no changes in bowels. no nsaid use. she does admit to some acid reflux at night but "not severe". 04/24/21 EGD - Gastritis 04/24/21 colonoscopy - 4 mm colon polyp, diverticulosis, internal hemorrhoids. Patient denies any current issues with nausea, vomiting, dysphagia, abdominal pain, unintentional weight loss, change in bowels, melena, or bright red blood per rectum. Allergies Allergy/AdvReac Type Severity Reaction Status Date / Time adhesive tape AdvReac Intermediate PULLS SKIN Verified 07/26/22 16:25 OFF Home Medications Medication Instructions Recorded Confirmed Type latanoprost 0.005 % eye drops 1 drp OPB HS 11/20/18 07/26/22 History (Xalatan) pantoprazole 40 mg tablet,delayed 40 mg PO BID #180 tabs 07/17/21 07/26/22 Rx release ipratropium 0.5 mg-albuterol 3 mg 3 ml inhalation BID PRN shortness 08/24/21 07/26/22 Rx (2.5 mg base)/3 mL nebulization of breath or wheezing #15 mL soln ferrous sulfate 325 mg (65 mg 325 mg PO QAM #90 tabs 01/31/22 07/26/22 Rx iron) tablet (Iron (ferrous sulfate)) albuterol sulfate 90 mcg/actuation 2 puff inhalation QID PRN 02/22/22 07/26/22 Rx aerosol inhaler (Ventolin HFA) Shortness Of Breath Or Wheezing #8.5 grams atorvastatin 10 mg tablet 10 mg PO QPM #90 tabs 03/05/22 07/26/22 Rx diltiazem HCl 240 mg 240 mg PO QAM 03/24/22 07/26/22 History capsule,extended release 24 hr fluticasone fur. 100 mcg-umeclid 1 inh inhalation DAILY #60 ea 04/23/22 07/26/22 Rx 62.5 mcg-vilant 25 mcg inhalat.powder (Trelegy Ellipta) benazepril 20 mg tablet 40 mg PO QPM #180 tabs 04/25/22 07/26/22 Rx methimazole 5 mg tablet 5 mg PO DAILYBB 06/05/22 07/26/22 History aspirin 81 mg chewable tablet 81 mg PO DAILY 07/21/22 07/26/22 History rivaroxaban 20 mg tablet (Xarelto) 20 mg PO QDD 07/26/22 07/26/22 History Patient History Medical History Acid reflux Adrenal nodule Atrial fibrillation Dx 4-5 years ago; on xarelto; hx cardioversion; follows with Dr. Pat COPD (chronic obstructive pulmonary disease) COHN (dyspnea on exertion) Glaucoma History of uterine cancer dx > 5 years; treated surgically HLD (hyperlipidemia) Hypertension Hyperthyroidism Poor historian Pulmonary nodules SMAS (superior mesenteric artery syndrome) Vocal cord paralysis, unilateral complete Surgical History History of anesthesia reaction SLOW TO WAKE UP History of cardioversion History of cataract surgery RT/LEFT History of colonoscopy History of endoscopy History of esophagogastroduodenoscopy (EGD) History of total abdominal hysterectomy and bilateral salpingo-oophorectomy S/P cholecystectomy Family History Daughter Breast cancer Mother Cancer Uterine cancer Father Heart disease Sister Family history of diabetes mellitus Brother Family history of diabetes mellitus Aunt Family history of diabetes mellitus Aunt Family history of diabetes mellitus Other Family history non-contributory Hypertension No family history of adverse response to anesthesia Denies family history of Colon cancer Ovarian cancer Prostate cancer Myocardial infarction Social History Smoking Status: Never smoker Tobacco Type: Cigarettes Second Hand Exposure: No; Do You Dip or Chew Tobacco: No; Tobacco Cessation Education Requested by Patient: No Hx Alcohol Use: No Hx Substance Use: No Preferred Language: Vietnamese Communication Ability: Effective Visual Impairment: No Limitations Hearing Ability: Normal Feltmaker And Weigher Required: No Beliefs That Will Affect Care: None marital status: / Current Living Situation: Alone current occupational status: retired How many Children do You have: 3 Other Information That Helps Us Care for You: No Feels Safe at Home: Yes Safety Concerns: Feels Safe At This Time Childhood Exposure to Second-Hand Smoke: Yes Diet Comment: regular caffeine: Yes during the past year weight has: remained stable Dental Care, Regularly: No Physical Activity Frequency: Does not Exercise Seatbelt Use: always Sunscreen Use: Yes Assistive Devices: None Review of Systems Review of Systems: All systems reviewed & are unremarkable except as noted in HPI & below Physical Exam Constitutional: WD/WN, vitals as above Respiratory: normal respiratory effort, lungs clear to auscultation Cardiovascular: RRR, no murmur, no edema Gastrointestinal (Abdomen): normal bowel sounds, soft, nontender, no hepatosplenomegaly Skin: no rashes, warm and dry Psychiatric: Orientation: alert and oriented x 3 Affect: euthymic affect Results & Data ([facility]) Vital Signs (Past 12 Hours) Vital Signs Temp Pulse Pulse Resp BP Pulse Ox O2 Del Method 07/27/22 10:30 77 07/27/22 10:04 Nasal Cannula 07/27/22 07:25 36.4 C L 77 16 119/57 L 98 Nasal Cannula 07/27/22 03:46 36.5 C 66 18 105/59 L 97 Nasal Cannula 07/27/22 02:32 42 L 07/26/22 23:19 36.5 C 41 L 16 90/50 L 98 Nasal Cannula O2 Flow Rate 07/27/22 10:30 07/27/22 10:04 2 07/27/22 07:25 1 07/27/22 03:46 3 07/27/22 02:32 07/26/22 23:19 3 PG Care Time/CCT Total # of Minutes Spent Total Time Spent with Patient: Total time spent is greater than 50% in coordination of care (as documented) at patient's floor/unit and/or counseling patient: Coding Level of Care Code 00618 INT INP/OBS CARE 40MIN Diagnoses Anemia D64.9 Anemia type: unspecified type Time Spent (min) 40 (1) Anemia Anemia type: unspecified type Qualified Code(s): D64.9 - Anemia, unspecified
[2022-07-27 13:08] LABS: Hematocrit (blood only) 25.7 % (37.0-47.0); Hemoglobin 8.2 g/dl (12.0-16.0)
--- NOTE | 2022-07-27 17:10 | Orthopedic Consultation ---
Date of Service July 27, 2022 Assessment & Plan (1) Closed fracture of hip: Patient has a nondisplaced intertrochanteric hip fracture. This some require surgical stabilization. She was severely anemic on admission. She has been given a unit of blood and looks stable. She had a GI evaluation and they did no t feel there is any necessary need for further work-up with her stable hemoglobin. We will make sure she is medically optimized. Once she is optimized we will plan on IM nailing of the left hip fracture. The risk meant this procedure explained to the patient include but not limited to DVT PE infection neurological and vascular bleeding palm pain limb range of motion test is fairly of her symptoms incomplete relief of symptoms need for further surgery in the future, nonunion, malunion, exceptor. The patient understands and desires to proceed. Informed consent is obtained. We will hold her Xarelto for now. We will use DVT prophylax include teds and SCDs. Will likely restart the Xarelto postoperatively may be at a lower dose. History of Present Illness Reason for Consultation: . Left hip fracture Requesting Physician: . Attending Physician: Zak Mcintyre . Patient is an 82-year-old female with multiple medical comorbidities who lives by herself over [facility] who sustained a injury to her left hip yesterday. She apparently tripped over a curb. She is normally an independent ambulator and lives by herself in [place]. She had she had the cute onset of pain. She brought the emergency room x-rays with a left intertrochanteric hip fracture. We are consulted for evaluation. She denies any pre-existing hip pain. No other injuries. She did come in with a hemoglobin of 6.2 and has been transfused. That she had a GI evaluation. As she is being medically optimized. Allergies Allergy/AdvReac Type Severity Reaction Status Date / Time adhesive tape AdvReac Intermediate PULLS SKIN Verified 07/26/22 16:25 OFF Home Medications Medication Instructions Recorded Confirmed Type latanoprost 0.005 % eye drops 1 drp OPB HS 11/20/18 07/26/22 History (Xalatan) pantoprazole 40 mg tablet,delayed 40 mg PO BID #180 tabs 07/17/21 07/26/22 Rx release ipratropium 0.5 mg-albuterol 3 mg 3 ml inhalation BID PRN shortness 08/24/21 07/26/22 Rx (2.5 mg base)/3 mL nebulization of breath or wheezing #15 mL soln ferrous sulfate 325 mg (65 mg 325 mg PO QAM #90 tabs 01/31/22 07/26/22 Rx iron) tablet (Iron (ferrous sulfate)) albuterol sulfate 90 mcg/actuation 2 puff inhalation QID PRN 02/22/22 07/26/22 Rx aerosol inhaler (Ventolin HFA) Shortness Of Breath Or Wheezing #8.5 grams atorvastatin 10 mg tablet 10 mg PO QPM #90 tabs 03/05/22 07/26/22 Rx diltiazem HCl 240 mg 240 mg PO QAM 03/24/22 07/26/22 History capsule,extended release 24 hr fluticasone fur. 100 mcg-umeclid 1 inh inhalation DAILY #60 ea 04/23/22 07/26/22 Rx 62.5 mcg-vilant 25 mcg inhalat.powder (Trelegy Ellipta) benazepril 20 mg tablet 40 mg PO QPM #180 tabs 04/25/22 07/26/22 Rx methimazole 5 mg tablet 5 mg PO DAILYBB 06/05/22 07/26/22 History aspirin 81 mg chewable tablet 81 mg PO DAILY 07/21/22 07/26/22 History rivaroxaban 20 mg tablet (Xarelto) 20 mg PO QDD 07/26/22 07/26/22 History Past Med/Surg History Medical History Acid reflux Adrenal nodule Atrial fibrillation Dx 4-5 years ago; on xarelto; hx cardioversion; follows with Dr. Pat COPD (chronic obstructive pulmonary disease) COHN (dyspnea on exertion) Glaucoma History of uterine cancer dx > 5 years; treated surgically HLD (hyperlipidemia) Hypertension Hyperthyroidism Poor historian Pulmonary nodules SMAS (superior mesenteric artery syndrome) Vocal cord paralysis, unilateral complete Surgical History History of anesthesia reaction SLOW TO WAKE UP History of cardioversion History of cataract surgery RT/LEFT History of colonoscopy History of endoscopy History of esophagogastroduodenoscopy (EGD) History of total abdominal hysterectomy and bilateral salpingo-oophorectomy S/P cholecystectomy Family History Daughter Breast cancer Mother Cancer Uterine cancer Father Heart disease Sister Family history of diabetes mellitus Brother Family history of diabetes mellitus Aunt Family history of diabetes mellitus Aunt Family history of diabetes mellitus Other Family history non-contributory Hypertension No family history of adverse response to anesthesia Denies family history of Colon cancer Ovarian cancer Prostate cancer Myocardial infarction Social History Smoking Status: Never smoker Tobacco Type: Cigarettes Second Hand Exposure: No; Do You Dip or Chew Tobacco: No; Tobacco Cessation Education Requested by Patient: No Hx Alcohol Use: No Hx Substance Use: No Preferred Language: Rwandan Communication Ability: Effective Visual Impairment: No Limitations Hearing Ability: Normal Communication Professor Required: No Beliefs That Will Affect Care: None marital status: / Current Living Situation: Alone current occupational status: retired How many Children do You have: 3 Other Information That Helps Us Care for You: No Feels Safe at Home: Yes Safety Concerns: Feels Safe At This Time Childhood Exposure to Second-Hand Smoke: Yes Diet Comment: regular caffeine: Yes during the past year weight has: remained stable Dental Care, Regularly: No Physical Activity Frequency: Does not Exercise Seatbelt Use: always Sunscreen Use: Yes Assistive Devices: None Review of Systems All systems reviewed & are unremarkable except as noted in HPI & below. Physical Exam . Physical examination reveals a very thin cachectic elderly female. She is lying in bed looks really comfortable. She was talking somewhat in the phone when I went in this afternoon. She reports only isolated left hip pain. Examination left hip reveals no visible deformity. Some very mild swelling. Her leg lengths are equal. She does have marked pain with any type of hip motion. She cannot do a straight leg raise. She is neurologically intact. Results & Data Results & Data Laboratory Results . Diagnostic Findings . X-rays of the left hip were reviewed. Shows a left nondisplaced intertrochanteric hip fracture. PG Care Time/CCT Total # of Minutes Spent Total Time Spent with Patient: Total time spent is greater than 50% in coordination of care (as documented) at patient's floor/unit and/or counseling patient: Coding Level of Care Code 64250 IN/OBS CONSULT LVL 5,80M Diagnoses Closed fracture of hip S72.002A Encounter type: initial encounter Laterality: left (1) Closed fracture of hip Encounter type: initial encounter Laterality: left Qualified Code(s): S72.002A - Fracture of unspecified part of neck of left femur, initial encounter for closed fracture
--- NOTE | 2022-07-27 19:19 | Hospitalist Progress Note ---
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 Check 25-OH vit D level am. Appreciate Dr Doran's consultation. Surgery tentatively scheduled tomorrow 07/28. I did discuss her care directly with Dr Doran. From optimization standpoint will - * Tx 1 additional unit of PRBCs for Hb of 7.7 * Resume cardizem albeit at 1/2 her usual dose - start IR cardizem 30mg qid * echo 06/2022 - EF 70%, no regional WMA, no significant valvular disease * CXR this admission stable - no evidence of pneumonia at this time From cardiopulmonary standpoint she is likely optimized for surgery at this time. Further, she had major intra-abdominal surgery in May at [facility] and largely did ok from cardiac standpoint. She should remain on tele post-op due to high risk of issues with a.fib rate co ntrol, etc. Another perioperative risk is a [employer] FILTER T[employer] TENDER / TIA event as she just had a suspected TIA within the last 2 weeks (required hospitalization at [facility] 06/2022). Pain - dilaudid prn. Schedule PO tylenol 1gm TID. IVF - cut fluid rate to 75cc/hr. Labs am. (2) Acute blood loss anemia: Plan: The L thigh is quite large in the setting of #1 - this is likely bleeding into the thigh from the fracture itself. Cannot rule out GI bleeding. For that reason GI was consulted; EGD declined by patient. She is s/p 1 unit of PRBCs overnight. Hb 7.7 this evening - transfuse additional unit of blood. H/H am. Ferritin 51 yesterday. Transferrin sat 26% but was 11% just 1 month ago. B12/folate levels satisfactory. Holding Xarelto. Cont PPI twice daily in the event there is slow, upper GI, occult bleeding. Await fecal occult blood test. (3) Atrial fibrillation: Plan: Typically on cardizem CD 240mg daily + Xarelto daily. Resume IR cardizem 30mg QID. Xarelto on hold due to need for surgery for L hip fracture. Last dose PM of 07/25/22, by report. (4) TIA (transient ischemic attack): Plan: Recent admission 06/2022. Full w/u including MRI brain negative for acute CVA. Given that the TIA was fairly recent she is at higher risk of marzena-operative CHAR FILTER T[employer] TENDER events given this recent TIA. (5) HLD (hyperlipidemia): Plan: Resume lipitor post-op. (6) COPD (chronic obstructive pulmonary disease): Plan: No flare at this time. Cont home inhalers. (7) Hypertension: Plan: Was mildly hypotensive yesterday in setting of acute blood loss anemia. BPs now normal. Resuming IR cardizem for a.fib. (8) Hyperthyroidism: Plan: TSH wnl 07/05/22. Cont methimazole. (9) SMAS (superior mesenteric artery syndrome): Plan: s/p surgery at [facility] 05/2022 steristrips still present on midline abdominal wound but wound is fully healed at this time no abdominal complaints today (10) Chronic renal failure (CRF), stage 3b: Plan: CrCl at baseline appears to be 30-50 range Creatinine itself is stable at this time BMP am (11) DVT prophylaxis: Plan: Xarelto on hold in preparation for Left hip surgery - likely tomorrow AM, 3/ resume such or similar agent (eliquis, etc) post surgery Plan left detailed message for pt's daughter Latesha Palacio on her voicemail 07/27/22 Admission and Anticipated Discharge Date Admission Date: July 26, 2022 Subjective patient c/o left hip pain denies pain in any other joints or other locations did not have much appetite today after NPO status was lifted overnight tele - ursula asks that I call her daughter w/ update per staff no overt GI bleeding patient does state she has had "dark" stools at home recently denies abd pain Review of Systems Review of Systems: cv - no orthopnea, no chest pain pulm - no dyspnea GI - no vomiting Physical Exam Physical Exam: gen - thin, with any movement in bed she has left hip pain; awake/alert mouth - MMM, no thrush neck - no JVD heart - irregular, tachy, s1 s2 lungs - CTA b/l, no rales abd - soft NT ND BS+ ext - left leg is shortened and externally rotated; edema of left thigh; pulses feet 2+ b/l; trace edema left foot, none on right foot psych - a/o x 3 skin - generalized pallor Results & Data Results & Data ([facility]) Vital Signs (Past 12 Hours) Vital Signs Temp Pulse Pulse Resp BP Pulse Ox Pulse Ox 07/27/22 18:02 109 H 07/27/22 15:37 36.8 C 87 18 144/76 H 93 07/27/22 15:00 95 07/27/22 14:56 77 07/27/22 11:52 36.4 C L 84 18 132/84 98 07/27/22 10:30 77 07/27/22 10:11 07/27/22 10:04 07/27/22 07:25 36.4 C L 77 16 119/57 L 98 O2 Del Method O2 Del Method O2 Flow Rate O2 Flow Rate 07/27/22 18:02 07/27/22 15:37 Nasal Cannula 1 07/27/22 15:00 Nasal Cannula 2 07/27/22 14:56 07/27/22 11:52 Nasal Cannula 1 07/27/22 10:30 07/27/22 10:11 Nasal Cannula 2 07/27/22 10:04 Nasal Cannula 2 07/27/22 07:25 Nasal Cannula 1 Laboratory Results Laboratory Results - last 24 hr 07/26/22 07/27/22 07/27/22 16:06 06:47 06:47 WBC 13.15 H RBC 2.53 L Hgb 7.4 L Hct 22.8 L MCV 90.1 MCH 29.2 MCHC 32.5 RDW Std Deviation 62.3 H RDW Coeff of Rosio 19.2 H Plt Count 280 MPV 10.6 Immature Gran % (Auto) 0.5 Neut % (Auto) 70.9 Lymph % (Auto) 17.0 Kleberg % (Auto) 10.6 Eos % (Auto) 0.7 Baso % (Auto) 0.3 Neut # (Auto) 9.33 H Lymph # (Auto) 2.23 Kleberg # (Auto) 1.40 H Eos # (Auto) 0.09 Baso # (Auto) 0.04 Immature Gran # (Auto) 0.06 Polychromasia 1+ Sodium 136 Potassium 4.1 D Chloride 106 Carbon Dioxide 27 Anion Gap 3 BUN 29 H Creatinine 0.97 Est Cr Clr Drug Dosing 33.2 Est GFR ( Amer) 63.9 Est GFR (Non-Af Amer) 55.2 BUN/Creatinine Ratio 29.9 H Glucose 75 Calcium 7.5 L Vitamin B12 Folate Blood Type A Positive Antibody Screen NEGATIVE Crossmatch See Detail 07/27/22 07/27/22 07/27/22 12:05 12:05 19:38 WBC RBC Hgb 8.2 L 7.7 L Hct 25.7 L 24.0 L MCV MCH MCHC RDW Std Deviation RDW Coeff of Rosio Plt Count MPV Immature Gran % (Auto) Neut % (Auto) Lymph % (Auto) Kleberg % (Auto) Eos % (Auto) Baso % (Auto) Neut # (Auto) Lymph # (Auto) Kleberg # (Auto) Eos # (Auto) Baso # (Auto) Immature Gran # (Auto) Polychromasia Sodium Potassium Chloride Carbon Dioxide Anion Gap BUN Creatinine Est Cr Clr Drug Dosing Est GFR ( Amer) Est GFR (Non-Af Amer) BUN/Creatinine Ratio Glucose Calcium Vitamin B12 371 Folate 7.38 Blood Type Antibody Screen Crossmatch PG Care Time/CCT Total # of Minutes Spent Total Time Spent with Patient: Total time spent is greater than 50% in coordination of care (as documented) at patient's floor/unit and/or counseling patient: Coding Level of Care Code 51381 SUB INP/OBS CARE 3/50MIN Diagnoses 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 M80.059A Acute blood loss anemia D62 Atrial fibrillation I48.91 TIA (transient ischemic attack) G45.9 HLD (hyperlipidemia) E78.5 COPD (chronic obstructive pulmonary disease) J44.9 COPD type: unspecified COPD Hypertension I10 Hypertension type: essential hypertension Hyperthyroidism E05.90 SMAS (superior mesenteric artery syndrome) K55.1 Chronic renal failure (CRF), stage 3b N18.32 DVT prophylaxis Z29.9 (6) COPD (chronic obstructive pulmonary disease) COPD type: unspecified COPD Qualified Code(s): J44.9 - Chronic obstructive pulmonary disease, unspecified (7) Hypertension Hypertension type: essential hypertension Qualified Code(s): I10 - Essential (primary) hypertension
[2022-07-27 19:58] LABS: Hemoglobin 7.7 g/dl (12.0-16.0)
[2022-07-27] MEDS: ACETAMINOPHEN 500 MG TAB PO SCH ×2 (20:07→20:58)
[2022-07-27] MEDS: dilTIAZem HCL 30 MG TAB PO SCH (20:08)
[2022-07-27] MEDS: LATANOPROST 0.005% OP SOLN 2.5 ML BTL OPB SCH (20:09)
[2022-07-27] MEDS: HYDROmorphone INJ 0.5 MG/0.5 ML SYR IV PRN (20:22)
[2022-07-27] MEDS ORDERED: SODIUM CHLORIDE 0.9% 250 ML IV PRN (20:26)
[2022-07-28] MEDS: methIMAzole 5 MG TABLET PO SCH (06:19)
[2022-07-28 06:52] LABS: Hematocrit (blood only) 28.5 % (37.0-47.0); Hemoglobin 9.4 g/dl (12.0-16.0)
[2022-07-28] MEDS ORDERED: PROPOFOL IV EMULSION 10 MG/ML 20 ML VIAL IV ONE (07:13)
[2022-07-28] MEDS ORDERED: MIDAZOLAM HCL 1 MG/ML 2ML VIAL ONE (07:13)
[2022-07-28] MEDS ORDERED: ONDANSETRON INJ 2 MG/ML 2 ML VIAL ONE (07:17)
[2022-07-28] MEDS: LACTATED RINGER'S 1,000 ML IV SCH ×2 (07:18→20:54)
--- NOTE | 2022-07-28 07:21 | History & Physical Bridge Note ---
Date of Service July 28, 2022 History & Physical Bridge Note I have examined the patient, reviewed the History & Physical and in the interval since the performance of the History & Physical I have noted the following changes of clinical significance: no changes noted
[2022-07-28] MEDS ORDERED: BUPIVACAINE 0.5 % 5 MG/1 ML PF 10ML VIAL ONE (07:26)
[2022-07-28] MEDS ORDERED: KETAMINE 50 MG/5 ML SYRINGE ONE (07:37)
[2022-07-28] MEDS ORDERED: BUPIVACAINE/EPINEPHRINE 0.5% MPF 1:200,000 30 ML VIAL ONE (07:50)
[2022-07-28] MEDS ORDERED: fentaNYL citrate 100 MCG/2 ML VIAL ONE ×2 (07:55→08:38)
[2022-07-28 08:15] LABS: Calcium 7.2 mg/dl (8.5-10.1); Potassium 3.8 mmol/L (3.5-5.1)
[2022-07-28] MEDS ORDERED: ROCURONIUM BROMIDE 10 MG/ML 5 ML VIAL IV ONE (08:29)
[2022-07-28] MEDS ORDERED: PHENYLEPHRINE 100MCG/ML 5ML SYR ONE (08:29)
[2022-07-28] MEDS ORDERED: PHENYLEPHRINE HCL 10 MG/ML VIAL ONE (08:29)
[2022-07-28] MEDS ORDERED: DEXAMETHASONE SOD INJ 4 MG/ML VIAL ONE (08:40)
[2022-07-28 08:43] LABS: BUN Creatinine Ratio 28.4 (10-20); Creatinine Clr Calc Pharmacy 48.1 ml/min; Est GFR (African American) 96.2 ml/min
[2022-07-28] MEDS ORDERED: SUGAMMADEX SODIUM 200 MG/2 ML VIAL IV ONE (09:08)
[2022-07-28] MEDS ORDERED: ceFAZolin 2000MG 2,000 MG/15 ML SYR IV ONE (09:10)
--- NOTE | 2022-07-28 09:32 | Fluoroscopy Report ---
FL femur LT 2V CLINICAL HISTORY: LT TROCH NAIL TECHNIQUE: 4 views were obtained with the C-arm in the OR with the above procedure. Total fluoroscopy time was 83.2 seconds. Radiation dose was 7.37 mGy. Comparison: Comparison is made to hip radiograph 07/26/2022 FINDINGS/IMPRESSION: Intraoperative images were obtained of left trochanteric nail placement. Please correlate with intraoperative fluoroscopy and operative report. ACT 112: Negative or not required by law. Electronically signed by: Pineda Bill M.D. 07/28/2022 9:29 AM
--- NOTE | 2022-07-28 09:39 | Operative Report ---
PG Post Operative Report Pre & Post Diagnosis Operation Date: 07/28/22 07:30 Pre-Op Diagnosis: Left nondisplaced intertrochanteric hip fracture Post-Op Diagnosis: Left nondisplaced intertrochanteric hip fracture I identified the patient and participated in the time-out.: Yes Procedure Operation Date: 07/28/22 07:30 Actual Procedures p long trochanteric Nail Left(Left) intertrochanteric hip fracture- Figueroa Doran MD Surgeon Figueroa Doran MD Tripper Mc Pedro PA-C Estimated Blood Loss 50 Findings Consistent with Post-Op Diagnosis Specimens None Anesthesia Type General Complications none Disposition Accompanied Patient To Recovery: No Indications Patient is an 82-year-old female with multiple medical comorbidities who sustained a fall 2 days ago. She tripped over the curb. She had cute onset of pain. She brought the emergency room where x-rays revealed a left nondisplaced intertrochanteric hip fracture. The patient was medically optimized and indicated for surgical management. She was quite anemic on admission and neededtransfused 2 units of blood preoperatively. She is blind and on chronic anticoagulation for atrial fibrillation. Description of Procedure Operative implants consist of: 1 Synthes 340 mm x 11 mm left long trochanteric nail. 2. 85 mm helical blade. 3. 40 mm distal interlocking screw. The patient was taken the operating, identified, placed on the operating table supine position protectors were properly padded. IV antibiotics tried by anesthesia team. General anesthetic was implemented. Patient was then placed on the fracture table. The left leg was placed in boot traction the right leg was placed in a well-leg sosa. I applied some longitudinal traction to the hip and internally rotated the foot. X-rays brought in to make sure that reduction was appropriate in we could get adequate x-rays. The left hip and leg were then scrubbed with Hibiclens and then prepped with ChloraPrep and draped in usual sterile fashion. A curvilinear incision was made just proximal tip of the greater trochanter. Sharp dissection was carried through subcutaneous tissue down below the gluteal fascia. Gluteal fascia was incised longitudinally in line with skin incision. A guidewire was placed just lateral to the tip of the trochanter and in line with the IM canal both the AP and lateral planes. It was advanced down the canal under fluoroscopic guidance. Once this was verified it was overreamed with a 17 mm reamer. I then remove this guidewire and placed a ball-tipped guidewire. We placed this down the canal and measured for nail length. A 340 mm nail was selected. I overreamed the guidewire with the 12.5 mm reamer. We then placed a left long trochanteric nail of 340 mm in length and 11 and millimeters in diameter over the guidewire. The guidewire was removed. This was then tapped into position. The lateral aiming arm was attached. A stab incision was made and this was advanced to the lateral aspect of the femur. A guidewire was placed in the central aspect of the femoral head and neck in both AP and lateral planes. It was measured. An 85 mm helical blade was selected. The cortical strut drill was used to breach the cortex and then the triple reamer was set 85 and overreamed the guidewire. An 85 mm helical blade was then placed and tapped into position. The proximal setscrew was tightened. The aiming arm was removed. Some final x-rays were obtained. Attention drawn toward distal interlocking. Using the perfect [place] technique a distal interlocking screw was placed. A st ab incision was made. The drill was used in the 40 mm screw was placed. Some final x-rays were obtained. Attention drawn toward closing. The wounds irrigated cosigns normal saline. I did inject locally with 30 cc of half percent Marcaine with epinephrine. The gluteal fascia was then closed with #1 Vicryl suture in a running fashion for the subcutaneous tissues then closed with 2-0 Vicryl suture in a buried interrupted fashion the skin was closed skin romy. Leg was then cleaned and dried and sterile dressing was Xeroform, 4 x 4's, ABD pad, foam tape were applied. The patient was then taken off the fracture table. She was then brought out of general anesthesia and transferred to the recovery room in stable condition. Patient tolerated the procedure well and there were no complications. Mc Pedro, my PA-C, was present for the entire procedure. His assistance was required for proper patient positioning, prepping and draping, surgical exposure, retraction, placing the implants, closure of the wound and placement of the sterile bandage. I attest to the content of the Intraoperative Record and any orders documented therein. Any exceptions are noted below.
--- NOTE | 2022-07-28 10:13 | Anesthesiology Progress Note ---
Date of Service July 28, 2022 Anesthesia Post Procedure Vital Signs Vital Signs: Temp Pulse Pulse Resp BP BP Pulse Ox 07/28/22 09:50 36.6 C 93 H 16 124/64 100 07/28/22 09:40 115 H 14 113/92 100 07/28/22 09:30 36.5 C 98 H 12 129/98 100 07/28/22 04:43 36.5 C 108 H 18 131/71 98 07/28/22 01:49 37.4 C 90 16 122/64 96 07/27/22 23:30 37.1 C 97 H 16 106/57 L 98 07/27/22 23:00 37.0 C 97 H 16 132/62 97 07/27/22 22:45 37.0 C 95 H 16 113/69 98 07/27/22 22:40 37.3 C 100 H 16 112/65 98 07/27/22 22:35 37.2 C 94 H 18 114/66 99 07/27/22 22:30 36.9 C 88 18 124/88 98 07/27/22 22:26 36.9 C 98 H 14 131/83 97 07/27/22 21:02 07/27/22 19:40 36.7 C 87 18 118/56 L 96 07/27/22 18:02 109 H 07/27/22 15:37 36.8 C 87 18 144/76 H 93 07/27/22 15:00 07/27/22 14:56 77 07/27/22 11:52 36.4 C L 84 18 132/84 98 07/27/22 10:30 77 Pulse Ox O2 Del Method O2 Del Method O2 Flow Rate O2 Flow Rate 07/28/22 09:50 Oxymask 3 07/28/22 09:40 Oxymask 4 07/28/22 09:30 Oxymask 4 07/28/22 04:43 Nasal Cannula 2.0 07/28/22 01:49 2 07/27/22 23:30 1 07/27/22 23:00 1 07/27/22 22:45 1 07/27/22 22:40 2 07/27/22 22:35 07/27/22 22:30 07/27/22 22:26 07/27/22 21:02 Nasal Cannula 2 07/27/22 19:40 Nasal Cannula 1 07/27/22 18:02 07/27/22 15:37 Nasal Cannula 1 07/27/22 15:00 95 Nasal Cannula 2 07/27/22 14:56 07/27/22 11:52 Nasal Cannula 1 07/27/22 10:30 Pain Intensity Hip: Pain Intensity: 8 Transfer of Care Handoff Completed per policy Notes Mental Status: alert / awake / arousable and participated in evaluation Patient Amnestic to Procedure: Yes Nausea / Vomiting: adequately controlled Pain: adequately controlled Airway Patency, RR, SpO2: stable & adequate BP & HR: stable & adequate Hydration State: stable & adequate Anesthetic Complications: no major complications apparent
[2022-07-28] MEDS: PANTOprazole 40 MG in SYRINGE 0 ML IV SCH ×2 (10:35→20:54)
[2022-07-28] MEDS: ACETAMINOPHEN 500 MG TAB PO SCH ×3 (10:35→20:52)
[2022-07-28] MEDS: FLUTICASONE FUROATE 100MCG 14 PUFFS/INHALER INH SCH (10:36)
[2022-07-28] MEDS: UMECLIDINIUM/VILANTEROL 62.5/25MCG 7 PUFFS/INHALER INH SCH (10:36)
[2022-07-28] MEDS: dilTIAZem HCL 30 MG TAB PO SCH (10:36)
[2022-07-28] MEDS ORDERED: dilTIAZem HCL 30 MG TAB PO ONE (11:45)
[2022-07-28] MEDS: ceFAZolin 1000MG 1,000 MG/7.5 ML SYR IV SCH (15:32)
[2022-07-28] MEDS: dilTIAZem HCl 60 MG TAB PO SCH ×2 (17:40→20:53)
--- NOTE | 2022-07-28 20:29 | Hospitalist Progress Note ---
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 Appreciate Dr Doran's assistance and ORIF today. Resting comfortably post-op. Replace low Vit D. Pain - dilaudid prn. Scheduled PO tylenol 1gm TID. IVF - due to low-normal Bps cont at 75cc/hr. Labs am. (2) Acute blood loss anemia: Plan: The L thigh is quite large in the setting of #1 - this is likely bleeding into the thigh from the fracture itself. Cannot rule out GI bleeding. For that reason GI was consulted; EGD declined by patient. She is s/p 2 units of PRBCs since admission. H/H stable this am. CBC in am. Ferritin 51. Transferrin sat 26% but was 11% just 1 month ago. B12/folate levels satisfactory. Holding Xarelto. resume when H/H felt to be consistently stable and ok with ortho. Cont PPI twice daily in the event there is slow, upper GI, occult bleeding but doubt. Await fecal occult blood test. (3) Atrial fibrillation: Plan: Typically on cardizem CD 240mg daily + Xarelto daily. Increase IR cardizem to 60mg QID. Xarelto on hold due surgery today. Last dose PM of 07/25/22, by report. Resume xarelto when able for stroke prevention and DVT prevention. (4) TIA (transient ischemic attack): Plan: Recent admission 06/2022. Full w/u including MRI brain negative for acute CVA. Given that the TIA was fairly recent she is at higher risk of marzena-operative [employer] events given this recent TIA. (5) HLD (hyperlipidemia): Plan: Resume lipitor (6) COPD (chronic obstructive pulmonary disease): Plan: No flare at this time. Cont home inhalers. NC o2 as needed. Lungs clear today. (7) Hypertension: Plan: BPs stable and able to increase IR cardizem for a.fib. (8) Hyperthyroidism: Plan: TSH wnl 07/05/22. Cont methimazole. (9) SMAS (superior mesenteric artery syndrome): Plan: s/p surgery at [facility] 05/2022 steristrips still present on midline abdominal wound but wound is fully healed at this time again no abdominal complaints today (10) Chronic renal failure (CRF), stage 3b: Plan: CrCl at baseline appears to be 30-50 range Creatinine itself is stable at this time BMP am (11) Vitamin D deficiency: Plan: 25-OH level 18 start ergocalciferol 67260 units qweekly x 8 weeks (12) DVT prophylaxis: Plan: Xarelto on hold but resume when ok with surgery (or Eliquis) Plan left detailed message for pt's daughter Latesha Palacio on her voicemail 07/27/22 spoke directly to Latesha this evening and gave update PT, OT Admission and Anticipated Discharge Date Admission Date: July 26, 2022 Subjective a.fib overnight - rates about 100 post-op - rates were 110-130 I saw Ms Junior post-op from ORIF of L hip Fx - mild L hip pain but otherwise resting comfortably did eat a little and tolerated w/o nausea/emesis no chest pain no orthopnea no dyspnea denies palpitations despite rapid a.fib EBL from surgery - 50ml Review of Systems Review of Systems: gen - no fevers or chills cv - no cp pulm - mild cough GI - no abd pain - cordova in place; urine is clear Physical Exam Physical Exam: gen - thin, comfortable appearing/NAD mouth - MMM, no thrush neck - no JVD heart - irregular, tachy, s1 s2, no murmur lungs - CTA b/l, no rales abd - soft NT ND BS+ ext - left thigh swelling improved; dressings intact lateral L thigh; ice pack in place; mild edema b/l feet, pulses 1+ b/l, cool to touch skin - generalized pallor; steri strips intact midline abdomen from surgery in late May ? (SMA stenosis surgery) Results & Data Results & Data ([facility]) Vital Signs (Past 12 Hours) Vital Signs Temp Pulse Pulse Resp BP Pulse Ox Pulse Ox 07/28/22 20:15 37.2 C 97 H 18 122/64 97 07/28/22 15:40 77 07/28/22 15:00 96 07/28/22 15:09 36.5 C 87 16 102/71 97 07/28/22 12:59 36.6 C 100 H 20 125/69 96 07/28/22 11:59 36.5 C 92 H 20 125/75 98 07/28/22 10:00 99 H 07/28/22 11:16 07/28/22 10:59 36.6 C 112 H 20 135/82 97 07/28/22 10:44 36.5 C 100 H 20 135/75 100 07/28/22 10:28 36.6 C 20 137/71 90 07/28/22 10:14 36.5 C 86 20 128/85 98 07/28/22 09:50 36.6 C 93 H 16 124/64 100 07/28/22 09:40 115 H 14 113/92 100 07/28/22 09:30 36.5 C 98 H 12 129/98 100 O2 Del Method O2 Del Method O2 Flow Rate O2 Flow Rate 07/28/22 20:15 Nasal Cannula 2.0 07/28/22 15:40 07/28/22 15:00 Nasal Cannula 2 07/28/22 15:09 Nasal Cannula 2 07/28/22 12:59 Nasal Cannula 2 07/28/22 11:59 Nasal Cannula 2 07/28/22 10:00 07/28/22 11:16 Nasal Cannula 2 07/28/22 10:59 Nasal Cannula 2 07/28/22 10:44 Nasal Cannula 2 07/28/22 10:28 Nasal Cannula 2 07/28/22 10:14 Room Air 07/28/22 09:50 Oxymask 3 07/28/22 09:40 Oxymask 4 07/28/22 09:30 Oxymask 4 Laboratory Results Laboratory Results - last 48 hr 07/26/22 07/27/22 07/27/22 16:06 12:05 12:05 WBC RBC Hgb 8.2 L Hct 25.7 L MCV MCH MCHC RDW Std Deviation RDW Coeff of Rosio Plt Count MPV Immature Gran % (Auto) Neut % (Auto) Lymph % (Auto) [place] % (Auto) Eos % (Auto) Baso % (Auto) Neut # (Auto) Lymph # (Auto) [place] # (Auto) Eos # (Auto) Baso # (Auto) Immature Gran # (Auto) Sodium Potassium Chloride Carbon Dioxide Anion Gap BUN Creatinine Est Cr Clr Drug Dosing Est GFR ( Amer) Est GFR (Non-Af Amer) BUN/Creatinine Ratio Glucose Calcium Vitamin B12 371 25-OH Vitamin D Total Folate 7.38 Blood Type A Positive Antibody Screen NEGATIVE Crossmatch See Detail 03/03/23 03/04/23 03/04/23 19:38 05:41 05:41 WBC RBC Hgb 7.7 L Hct 24.0 L MCV MCH MCHC RDW Std Deviation RDW Coeff of Rosio Plt Count MPV Immature Gran % (Auto) Neut % (Auto) Lymph % (Auto) [place] % (Auto) Eos % (Auto) Baso % (Auto) Neut # (Auto) Lymph # (Auto) [place] # (Auto) Eos # (Auto) Baso # (Auto) Immature Gran # (Auto) Sodium 138 Potassium 3.8 Chloride 108 H Carbon Dioxide 28 Anion Gap 2 L BUN 19 Creatinine 0.67 D Est Cr Clr Drug Dosing 48.1 Est GFR ( Amer) 96.2 Est GFR (Non-Af Amer) 83.0 BUN/Creatinine Ratio 28.4 H Glucose 70 Calcium 7.2 L Vitamin B12 25-OH Vitamin D Total 18.6 L Folate Blood Type Antibody Screen Crossmatch 07/28/22 05:41 WBC RBC Hgb 9.4 L Hct 28.5 L MCV MCH MCHC RDW Std Deviation RDW Coeff of Rosio Plt Count MPV Immature Gran % (Auto) Neut % (Auto) Lymph % (Auto) [place] % (Auto) Eos % (Auto) Baso % (Auto) Neut # (Auto) Lymph # (Auto) [place] # (Auto) Eos # (Auto) Baso # (Auto) Immature Gran # (Auto) Sodium Potassium Chloride Carbon Dioxide Anion Gap BUN Creatinine Est Cr Clr Drug Dosing Est GFR ( Amer) Est GFR (Non-Af Amer) BUN/Creatinine Ratio Glucose Calcium Vitamin B12 25-OH Vitamin D Total Folate Blood Type Antibody Screen Crossmatch PG Care Time/CCT Total # of Minutes Spent Total Time Spent with Patient: Total time spent is greater than 50% in coordination of care (as documented) at patient's floor/unit and/or counseling patient: Coding Level of Care Code 28894 SUB INP/OBS CARE 35MIN Diagnoses 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 M80.059A Acute blood loss anemia D62 Atrial fibrillation I48.91 TIA (transient ischemic attack) G45.9 HLD (hyperlipidemia) E78.5 COPD (chronic obstructive pulmonary disease) J44.9 COPD type: unspecified COPD Hypertension I10 Hypertension type: essential hypertension Hyperthyroidism E05.90 SMAS (superior mesenteric artery syndrome) K55.1 Chronic renal failure (CRF), stage 3b N18.32 Vitamin D deficiency E55.9 DVT prophylaxis Z29.9 (6) COPD (chronic obstructive pulmonary disease) COPD type: unspecified COPD Qualified Code(s): J44.9 - Chronic obstructive pulmonary disease, unspecified (7) Hypertension Hypertension type: essential hypertension Qualified Code(s): I10 - Essential (primary) hypertension
[2022-07-28] MEDS: LATANOPROST 0.005% OP SOLN 2.5 ML BTL OPB SCH (20:54)
[2022-07-29] MEDS: ceFAZolin 1000MG 1,000 MG/7.5 ML SYR IV SCH (00:04)
[2022-07-29] MEDS: HYDROmorphone INJ 0.5 MG/0.5 ML SYR IV PRN (03:17)
[2022-07-29] MEDS: methIMAzole 5 MG TABLET PO SCH (06:12)
[2022-07-29 06:35] LABS: Basophils # (auto) 0.02 K/uL (0-0.2); Basophils % (auto) 0.1 %; Hematocrit (blood only) 26.2 % (37.0-47.0); Hemoglobin 8.5 g/dl (12.0-16.0); Immature Granulocytes # (auto) 0.09 K/uL (0.01-0.20); Immature Granulocytes % (auto) 0.6 %; Lymphocytes # (auto) 1.52 K/uL (1.2-3.4); Lymphocytes % (auto) 9.7 %; Mean Corpuscular Hemoglobin 30.2 pg (25.0-34.0); Mean Corpuscular Hgb Conc 32.4 g/dL (32.0-36.0); Mean Corpuscular Volume 93.2 fL (80.0-100.0); Mean Platelet Volume 10.4 fL (9.4-12.4); Monocytes % (auto) 7.1 %; Neutrophils # (auto) 12.87 K/uL (1.40-6.50); Neutrophils % (auto) 82.5 %; Platelet Count 234 K/uL (130-400); RDW Coefficient of Variation 19.6 % (11.5-14.5); RDW Standard Deviation 64.8 fL (36.4-46.3); Red Blood Count 2.81 M/uL (4.20-5.40)
[2022-07-29] MEDS ORDERED: Nursing to Pharmacy Communication SCH (06:45)
[2022-07-29 06:56] LABS: BUN Creatinine Ratio 25.7 (10-20); Creatinine Clr Calc Pharmacy 43.6 ml/min; Est GFR (African American) 88.7 ml/min; Est GFR (Non-African American) 76.5 ml/min; Potassium 4.4 mmol/L (3.5-5.1)
[2022-07-29] MEDS: PANTOprazole 40 MG in SYRINGE 0 ML IV SCH ×2 (07:57→20:09)
[2022-07-29] MEDS: dilTIAZem HCl 60 MG TAB PO SCH (07:58)
[2022-07-29] MEDS: ACETAMINOPHEN 500 MG TAB PO SCH ×4 (07:58→20:06)
[2022-07-29] MEDS: UMECLIDINIUM/VILANTEROL 62.5/25MCG 7 PUFFS/INHALER INH SCH (07:59)
[2022-07-29] MEDS: FLUTICASONE FUROATE 100MCG 14 PUFFS/INHALER INH SCH (07:59)
--- NOTE | 2022-07-29 08:01 | Progress Notes ---
DATE OF SERVICE: 07/29/2022. SUBJECTIVE: An 82-year-old female postoperative day 1 from IM nailing of a left intertrochanteric fr acture. She is doing pretty well this morning. She is just complaining about SHANNON stockings bilatera lly. Not a lot of hip pain. No new complaints. OBJECTIVE: VITAL SIGNS: Temperature 36.4. Vital signs are stable. GENERAL: Shows a pleasant, cachectic elderly female. She is sitting up and eating breakfast. She l ooks entirely comfortable. EXTREMITIES: Examination of the left hip and leg reveals leg lengths to be equal. Dressing is clean , dry and intact. Thigh is soft and supple. She is neurologically intact. She can dorsiflex and pl antarflex her foot appropriately. LABORATORY DATA: Hemoglobin 8.5. Hematocrit 26.2. White cell count 15.60. Electrolytes are stable . ASSESSMENT: An 82-year-old female postoperative day 1 from IM nailing of a left intertrochanteric fr acture. Orthopedically, doing pretty well. Pain seems to be controlled. PLAN: 1. DVT prophylaxis includes thigh-high TEDs, SCDs, and she can be back on her anticoagulation/Eliqui s starting today. 2. PT/OT, weightbear as tolerated. No particular restrictions. 3. Pain control, doing okay with current pain regimen. I did try and limit narcotics to avoid confu rober. 4. Medical management as per the medicine service. 5. Disposition: She is orthopedically okay to discharge any time medically stable. I need to see h er back two to three weeks out from surgery date. Any orthopedic questions can be directed to me at [phone]. Job ID: [id number]
[2022-07-29] MEDS ORDERED: ERGOCALCIFEROL 50,000 UNITS 1250 MCG CAP PO ONE (09:00)
[2022-07-29] MEDS ORDERED: traMADol HCL 50 MG TABLET PO PRN (12:39)
--- NOTE | 2022-07-29 12:39 | Hospitalist Progress Note ---
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 Appreciate Dr Doran's assistance. Replace low Vit D. Pain - dilaudid prn. Tramadol prn. Scheduled PO tylenol 1gm TID. stop IVF. remove cordova today or tomorrow. PT, OT. Bowel regimen. dispo - [facility] for rehab. (2) Acute blood loss anemia: Plan: At time of admission there was concern for GI bleeding, possibly upper in location. Seen by GI - EGD declined by patient. She is s/p 2 units of PRBCs since admission - both units prior to her hip ORIF. H/H stable this am once again. CBC in am for stability. Ferritin 51. Transferrin sat 26% but was 11% just 1 month ago. B12/folate levels satisfactory. Holding Xarelto - if H/H stable tomorrow AM then resume xarelto or eliquis. Cont PPI twice daily. (3) Atrial fibrillation: Plan: Typically on cardizem CD 240mg daily + Xarelto daily. Rates yesterday were elevated - perhaps due to pain. IR cardizem increased yesterday to 60mg QID. Despite this dose equally her home extended release dose she was <60 much of the day today. Thus, cardizem held. Per Dr Doran can resume xarelto or other anticoagulant at this point. Because of #2 will recheck H/H tomorrow am. IF stable will resume then. (4) TIA (transient ischemic attack): Plan: Recent admission 06/2022 for such; w/u including MRI brain negative for acute CVA. (5) HLD (hyperlipidemia): Plan: cont lipitor (6) COPD (chronic obstructive pulmonary disease): Plan: No flare at this time. Cont home inhalers. Lungs clear today. O2 sats mid 90s in RA. (7) Hypertension: Plan: BPs stable at this time (8) Hyperthyroidism: Plan: TSH wnl 07/05/22. Cont methimazole. (9) SMAS (superior mesenteric artery syndrome): Plan: s/p surgery at [facility] 05/2022 steristrips still present on midline abdominal wound but wound is fully healed at this time (10) Chronic renal failure (CRF), stage 3b: Plan: CrCl at baseline appears to be 30-50 range Creatinine continues to remain stable bmp am (11) Vitamin D deficiency: Plan: 25-OH level 18 Rx: ergocalciferol 02634 units qweekly x 8 weeks (12) DVT prophylaxis: Plan: resume Xarelto or Eliquis tomorrow if H/H stable (13) Insomnia: Plan: present for months can't fall asleep nor stay asleep during this time period appetite has been poor and has lost weight start remeron 7.5mg HS (14) Heme positive stool: Plan: by report pt had a firm, hard stool that had a minimal amount of BRB also with ?hemorrhoids? start anusol monitor H/H (see above) Plan updated Latesha Palacio, pt's daughter, 07/29/22 by phone dispo - [facility] - next 48 hours? Admission and Anticipated Discharge Date Admission Date: July 26, 2022 Subjective patient sitting in the chair during the visit with sitting she has no pain in the left hip with transferring there was considerable pain denies any dyspnea during the visit I took off her O2; placed forehead probe - O2 sats mid 90s in room air denies N/V later in the day I received notification from the nursing staff that patient finally had a BM it was firm/hard and there was some mild blood present and ?hemorrhoids per report tele - a.fib - rates <100, occasional rates <50 (brief) Review of Systems Review of Systems: gen - no fevers or chills; appetite fair at best cv - no orthopnea pulm - no dyspnea GI - no abd pain/nausea/emesis psych - chronic insomnia "for months"; last pm didn't sleep except for ~2 hours Physical Exam Physical Exam: gen - thin, comfortable appearing/NAD, sitting in chair mouth - MMM, no thrush neck - no JVD heart - irregular, rate<60, s1 s2, no murmur lungs - CTA b/l, no rales abd - soft NT ND BS+ ext - dressings intact lateral L thigh; <1+ edema b/l feet, pulses 1+ b/l, cool to touch (fingers & toes) skin - generalized pallor psych - a/o x 3 Results & Data Results & Data ([facility]) Vital Signs (Past 12 Hours) Vital Signs Temp Pulse Pulse Resp BP Pulse Ox O2 Del Method 07/29/22 11:31 65 07/29/22 11:28 36.5 C 75 16 110/50 L 95 Nasal Cannula 07/29/22 07:57 79 114/64 07/29/22 07:28 36.4 C L 76 16 99/47 L 95 Nasal Cannula 07/29/22 02:38 36.3 C L 91 H 18 109/59 L 98 Nasal Cannula O2 Flow Rate 07/29/22 11:31 07/29/22 11:28 2 07/29/22 07:57 07/29/22 07:28 2 07/29/22 02:38 2.0 Laboratory Results Laboratory Results - last 24 hr 07/29/22 07/29/22 07/29/22 05:28 05:28 05:28 WBC 15.60 H RBC 2.81 L Hgb 8.5 L Hct 26.2 L MCV 93.2 MCH 30.2 MCHC 32.4 RDW Std Deviation 64.8 H RDW Coeff of Rosio 19.6 H Plt Count 234 MPV 10.4 Immature Gran % (Auto) 0.6 Neut % (Auto) 82.5 Lymph % (Auto) 9.7 [place] % (Auto) 7.1 Eos % (Auto) 0.0 Baso % (Auto) 0.1 Neut # (Auto) 12.87 H Lymph # (Auto) 1.52 [place] # (Auto) 1.10 H Eos # (Auto) 0.00 Baso # (Auto) 0.02 Immature Gran # (Auto) 0.09 Sodium 137 Potassium 4.4 Chloride 107 Carbon Dioxide 28 Anion Gap 2 L BUN 19 Creatinine 0.74 Est Cr Clr Drug Dosing 43.6 Est GFR ( Amer) 88.7 Est GFR (Non-Af Amer) 76.5 BUN/Creatinine Ratio 25.7 H Glucose 144 H Calcium 7.0 L 25-OH Vitamin D Total 15.2 L PG Care Time/CCT Total # of Minutes Spent Total Time Spent with Patient: Total time spent is greater than 50% in coordination of care (as documented) at patient's floor/unit and/or counseling patient: Coding Level of Care Code 74128 SUB INP/OBS CARE 2/35MIN Diagnoses 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 M80.059A Acute blood loss anemia D62 Atrial fibrillation I48.91 TIA (transient ischemic attack) G45.9 HLD (hyperlipidemia) E78.5 COPD (chronic obstructive pulmonary disease) J44.9 COPD type: unspecified COPD Hypertension I10 Hypertension type: essential hypertension Hyperthyroidism E05.90 SMAS (superior mesenteric artery syndrome) K55.1 Chronic renal failure (CRF), stage 3b N18.32 Vitamin D deficiency E55.9 DVT prophylaxis Z29.9 Insomnia G47.00 Heme positive stool R19.5 (6) COPD (chronic obstructive pulmonary disease) COPD type: unspecified COPD Qualified Code(s): J44.9 - Chronic obstructive pulmonary disease, unspecified (7) Hypertension Hypertension type: essential hypertension Qualified Code(s): I10 - Essential (primary) hypertension
[2022-07-29] MEDS: SENNA 8.6 MG TAB PO SCH (13:36)
[2022-07-29] MEDS: POLYETHYLENE (MIRALAX) 17 GM PACK PO SCH (13:39)
[2022-07-29] MEDS: dilTIAZem HCL 120 MG CAPCR PO SCH (17:08)
[2022-07-29] MEDS: ANUSOL SUPP 1 EA PR SCH ×2 (18:10→20:06)
[2022-07-29] MEDS: LATANOPROST 0.005% OP SOLN 2.5 ML BTL OPB SCH (20:05)
[2022-07-29] MEDS: MIRTAZAPINE TAB 15 MG TAB PO SCH (20:08)
[2022-07-29] MEDS: ATORVASTATIN 10 MG TAB PO SCH (20:09)
[2022-07-30] MEDS: methIMAzole 5 MG TABLET PO SCH (05:30)
[2022-07-30 05:54] LABS: Hematocrit (blood only) 30.8 % (37.0-47.0); Hemoglobin 9.8 g/dl (12.0-16.0); Mean Corpuscular Hemoglobin 29.4 pg (25.0-34.0); Mean Corpuscular Hgb Conc 31.8 g/dL (32.0-36.0); Mean Corpuscular Volume 92.5 fL (80.0-100.0); Mean Platelet Volume 10.1 fL (9.4-12.4); Platelet Count 225 K/uL (130-400); RDW Coefficient of Variation 19.8 % (11.5-14.5); RDW Standard Deviation 65.9 fL (36.4-46.3); Red Blood Count 3.33 M/uL (4.20-5.40)
[2022-07-30 06:09] LABS: BUN Creatinine Ratio 26.5 (10-20); Calcium 7.7 mg/dl (8.5-10.1); Creatinine Clr Calc Pharmacy 38.8 ml/min; Est GFR (African American) 77.2 ml/min; Est GFR (Non-African American) 66.6 ml/min; Potassium 4.5 mmol/L (3.5-5.1)
--- NOTE | 2022-07-30 08:08 | Progress Notes ---
DATE OF SERVICE: 07/30/2022. SUBJECTIVE: An 82-year-old female postoperative day 2 from IM nailing of a left intertrochanteric fr acture. She is doing okay this morning. I just had to wake her up. Does not really report much in the way of pain. No other complaints. OBJECTIVE: VITAL SIGNS: Temperature 36.6. Vital signs are stable. Intermittently tachycardic. GENERAL: Shows a pleasant, elderly female. I had to wake her up this morning. She denies any pain. EXTREMITIES: Examination of the left hip reveals the dressing to be clean, dry and intact. Leg dheeraj ths were equal. She is neurologically intact. LABORATORY DATA: Hemoglobin 9.8. Hematocrit 30.8. White cell count 15.90. Electrolytes are stable . ASSESSMENT: An 82-year-old female postoperative day 2 from IM nailing of a left intertrochanteric fr acture. She is neurologically intact. Hemoglobin is stable, but pretty anemic on admission. She wa s on a fairly high dose of anticoagulation for someone her size. PLAN: 1. DVT prophylaxis includes thigh-high TEDs, SCDs. She is on a baby aspirin as well as Xarelto. I think we should consider decreasing the dose of her Xarelto considering her anemia on admission. She is also on a PPI, which is appropriate. 2. PT/OT. She can fully weightbear as tolerated. 3. Medical management as per the medicine service. 4. Disposition: She is orthopedically okay for discharge any time. I need to see her back two to t hree weeks out from surgery date. Routine wound care left hip. Any orthopedic questions can be dire cted to me at [phone]. Job ID: [id number]
[2022-07-30] MEDS: PANTOprazole 40 MG in SYRINGE 0 ML IV SCH ×2 (08:13→20:10)
[2022-07-30] MEDS: SENNA 8.6 MG TAB PO SCH (08:13)
[2022-07-30] MEDS: ANUSOL SUPP 1 EA PR SCH ×3 (08:13→20:09)
[2022-07-30] MEDS: dilTIAZem HCL 120 MG CAPCR PO SCH (08:13)
[2022-07-30] MEDS: ACETAMINOPHEN 500 MG TAB PO SCH ×3 (08:13→20:09)
[2022-07-30] MEDS: POLYETHYLENE (MIRALAX) 17 GM PACK PO SCH (08:13)
[2022-07-30] MEDS: FLUTICASONE FUROATE 100MCG 14 PUFFS/INHALER INH SCH (08:14)
[2022-07-30] MEDS: UMECLIDINIUM/VILANTEROL 62.5/25MCG 7 PUFFS/INHALER INH SCH (08:14)
[2022-07-30] MEDS: APIXABAN 2.5 MG TAB PO SCH ×2 (10:04→20:09)
[2022-07-30] MEDS ORDERED: dilTIAZem HCL 30 MG TAB PO ONE (10:23)
--- NOTE | 2022-07-30 14:34 | Hospitalist Progress Note ---
Date of Service July 30, 2022 Assessment & Plan (1) 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: Plan: left hip - s/p ORIF, POD #2 - Dr Doran, [facility] [place] Orth[facility]. Appreciate Dr Doran's assistance. Dr Doran was alerted about serous drainage from her incisions. Replace low Vit D. Pain - dilaudid prn. Tramadol prn. Scheduled PO tylenol 1gm TID. remove cordova hopefully tomorrow AM. cont PT, OT. Bowel regimen. dispo - [facility] for rehab. timing uncertain. (2) Acute blood loss anemia: Plan: At time of admission there was concern for GI bleeding, possibly upper in location. Seen by GI - EGD declined by patient. She is s/p 2 units of PRBCs since admission - both units prior to her hip ORIF. H/H stable this am once again. CBC in am for stability. Ferritin 51. Transferrin sat 26% but was 11% just 1 month ago. B12/folate levels satisfactory. Eliquis 2.5mg BID started today cautiously (using in place of Xarelto). Cont PPI twice daily. (3) Atrial fibrillation: Plan: Typically on cardizem CD 240mg daily + Xarelto daily. Was on this regimen at home pre-hospital. With using the equivalent of her home dose (was on cardizem IR 60mg QID at one point over the weekend) her rates were slow, often in the upper 40s/low 50s). We cut back to 30mg qid and she then was too fast with rates >100. Today I gave cardizem CD 120mg and her rates were still too fast. A one-time dose of 30mg IR cardizem was given and her HR dipped into the 40s. 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 I consulted Dr Wilson from [facility] [place] Cardiology regarding this issue. Appreciate his consultation. Continue Eliquis 2.5mg BID for anticoagulation. Will use this moving forward in esther of xarelto. (4) TIA (transient ischemic attack): Plan: Recent admission 06/2022 for such; w/u including MRI brain negative for acute CVA. Resumed anticoagulation today. (5) HLD (hyperlipidemia): Plan: cont lipitor (6) COPD (chronic obstructive pulmonary disease): Plan: No flare at this time. Cont home inhalers. Lungs clear again today. Stable O2 sats mid 90s in RA. (7) Hypertension: Plan: BPs stable at this time (8) Hyperthyroidism: Plan: TSH wnl 07/05/22. Cont methimazole. (9) SMAS (superior mesenteric artery syndrome): Plan: s/p surgery at [facility] 05/2022 steristrips still present on midline abdominal wound but wound is fully healed at this time (10) Chronic renal failure (CRF), stage 3b: Plan: CrCl at baseline appears to be 30-50 range Creatinine continues to remain stable bmp am (11) Vitamin D deficiency: Plan: 25-OH level 18 Rx: ergocalciferol 16426 units qweekly x 8 weeks - first dose given 07/29/22 (12) DVT prophylaxis: Plan: resume Eliquis 2.5mg BID today (13) Insomnia: Plan: present for months can't fall asleep nor stay asleep during this time period appetite has been poor and she has lost a considerable amount of weight started remeron 7.5mg HS on 07/29/22 tolerated such I counseled her about this medication - did tell her this is an antidepressant but will help sleep/appetite She is ok with continuing (14) Heme positive stool: Plan: by report pt had a firm, hard stool that had a minimal amount of BRB on 07/29/22 JONES today by myself -- hemorrhoid at 6 o'clock cont anusol H/H remain stable cbc am (15) Severe protein-calorie malnutrition: Plan: had lost 15-20 # of weight from fall 2021 to winter 2022 prior to her SMA syndrome surgery 05/2022 albumin low in the mid 2's remeron should help w/ appetite add MVI boost etc low albumin contributing to her serous fluid weeping from incisions, etc Plan updated Latesha Palacio, pt's daughter, 07/29/22 by phone updated pt's sister at bedside today dispo - [facility] - date of d/c uncertain await cardiology consult Admission and Anticipated Discharge Date Admission Date: July 26, 2022 Subjective tele - a.fib rates >100 overnight cardizem CD 120mg given this am- despite such her rates remained >100 an additional 30mg of IR cardizem was given for elevated rates soon after she had bradycardia (transient) to the 40s during my visit she was resting comfortably in bed staff report her left leg continues to weep serous fluid from her incisions pt states she had the same problem with her abdominal incision at [place] earlier this winter he continues with L hip pain - much worse with movement denies pain other locations she denies dyspnea she DID sleep well overnight with remeron - best she has slept in months no further gross blood per rectum per nursing she asks that her TEDS hose be removed - they are uncomfortable Review of Systems Review of Systems: gen - slept better overnight but still tired; eating - fair cv - no orthopnea pulm - no dyspnea at rest GI - moving bowels, stools are dark per staff but no gross melena or BRB - cordova still in place Physical Exam Physical Exam: gen - thin, with moving in bed she has pain in L hip region mouth - MMM, no thrush neck - no JVD heart - irregular, rate<60, s1 s2, no murmur lungs - CTA b/l, minimal dry rales bases abd - soft NT ND BS+ ext - dressings intact lateral L thigh and distal L lateral thigh near the L knee; they are saturated with serous fluid (clear) - no bloody drainage; 1+ edema b/l feet and ankles/shins, pulses 1+ b/l, cool to touch skin - generalized pallor psych - a/o x 3 JONES - chaperoned by nursing staff - hemorrhoid at 6 o'clock; no gross blood; stool is brown; not impacted; no masses Results & Data Results & Data ([facility]) Vital Signs (Past 12 Hours) Vital Signs Temp Pulse Pulse Resp BP Pulse Ox O2 Del Method 07/30/22 11:42 36.7 C 96 H 18 102/67 90 Room Air 07/30/22 08:10 36.7 C 84 18 137/77 94 Room Air 07/30/22 07:14 Room Air 07/30/22 07:14 123 H 07/30/22 03:42 36.6 C 94 H 18 127/71 91 Room Air Laboratory Results Laboratory Results - last 24 hr 07/31/22 07/31/22 05:30 05:30 WBC 11.72 H RBC 3.27 L Hgb 9.6 L Hct 30.7 L MCV 93.9 MCH 29.4 MCHC 31.3 L RDW Std Deviation 65.0 H RDW Coeff of Rosio 19.2 H Plt Count 208 MPV 10.4 Sodium 141 Potassium 4.4 Chloride 111 H Carbon Dioxide 30 Anion Gap 0 L BUN 19 Creatinine 0.72 Est Cr Clr Drug Dosing 44.8 Est GFR ( Amer) 91.7 Est GFR (Non-Af Amer) 79.1 BUN/Creatinine Ratio 26.4 H Glucose 63 L Calcium 7.5 L PG Care Time/CCT Total # of Minutes Spent Total Time Spent with Patient: Total time spent is greater than 50% in coordination of care (as documented) at patient's floor/unit and/or counseling patient: Coding Level of Care Code 21666 SUB INP/OBS CARE 350MIN Diagnoses 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 M80.059A Acute blood loss anemia D62 Atrial fibrillation I48.91 TIA (transient ischemic attack) G45.9 HLD (hyperlipidemia) E78.5 COPD (chronic obstructive pulmonary disease) J44.9 COPD type: unspecified COPD Hypertension I10 Hypertension type: essential hypertension Hyperthyroidism E05.90 SMAS (superior mesenteric artery syndrome) K55.1 Chronic renal failure (CRF), stage 3b N18.32 Vitamin D deficiency E55.9 DVT prophylaxis Z29.9 Insomnia G47.00 Heme positive stool R19.5 Severe protein-calorie malnutrition E43 (6) COPD (chronic obstructive pulmonary disease) COPD type: unspecified COPD Qualified Code(s): J44.9 - Chronic obstructive pulmonary disease, unspecified (7) Hypertension Hypertension type: essential hypertension Qualified Code(s): I10 - Essential (primary) hypertension
--- NOTE | 2022-07-30 17:13 | Cardiology Consultation ---
Date of Consultation July 30, 2022 History of Present Illness Attending Physician: Zak Mcintyre History of Present Illness This is an 82-year-old woman who is typically followed by Dr. Pat in our office. She has a history of hypertension, mitral regurgitation and permanent atrial fibrillation and is maintained on anticoagulation with Xarelto. Typically her rate control medications are diltiazem 240 mg daily. An echocardiogram done July 22, 2022 shows normal left ventricular size with hyperdynamic left ventricular systolic function and mild concentric left ventricular hypertrophy. No valvular abnormalities. There is a suggestion of a PFO with right to left intra-atrial shunting. She presented to the emergency room with a fall, it sounds as though this was a mechanical fall although perhaps we cannot exclude a contribution of her rhythm. She had hip surgery on July 28, 2022. Allergies Allergy/AdvReac Type Severity Reaction Status Date / Time adhesive tape AdvReac Intermediate PULLS SKIN Verified 07/26/22 16:25 OFF Home Medications Medication Instructions Recorded Confirmed Type latanoprost 0.005 % eye drops 1 drp OPB HS 11/20/18 07/26/22 History (Xalatan) pantoprazole 40 mg tablet,delayed 40 mg PO BID #180 tabs 07/17/21 07/26/22 Rx release ipratropium 0.5 mg-albuterol 3 mg 3 ml inhalation BID PRN shortness 08/24/21 07/26/22 Rx (2.5 mg base)/3 mL nebulization of breath or wheezing #15 mL soln ferrous sulfate 325 mg (65 mg 325 mg PO QAM #90 tabs 01/31/22 07/26/22 Rx iron) tablet (Iron (ferrous sulfate)) albuterol sulfate 90 mcg/actuation 2 puff inhalation QID PRN 02/22/22 07/26/22 Rx aerosol inhaler (Ventolin HFA) Shortness Of Breath Or Wheezing #8.5 grams atorvastatin 10 mg tablet 10 mg PO QPM #90 tabs 03/05/22 07/26/22 Rx diltiazem HCl 240 mg 240 mg PO QAM 03/24/22 07/26/22 History capsule,extended release 24 hr fluticasone fur. 100 mcg-umeclid 1 inh inhalation DAILY #60 ea 04/23/22 07/26/22 Rx 62.5 mcg-vilant 25 mcg inhalat.powder (Trelegy Ellipta) benazepril 20 mg tablet 40 mg PO QPM #180 tabs 04/25/22 07/26/22 Rx methimazole 5 mg tablet 5 mg PO DAILYBB 06/05/22 07/26/22 History aspirin 81 mg chewable tablet 81 mg PO DAILY 07/21/22 07/26/22 History rivaroxaban 20 mg tablet (Xarelto) 20 mg PO QDD 07/26/22 07/26/22 History Patient History Medical History (Updated 07/30/22 @ 00:48 by Zak Mcintyre) Acid reflux Adrenal nodule Atrial fibrillation Dx 4-5 years ago; on xarelto; hx cardioversion; follows with Dr. Pat COPD (chronic obstructive pulmonary disease) COHN (dyspnea on exertion) Glaucoma History of uterine cancer dx > 5 years; treated surgically HLD (hyperlipidemia) Hypertension Hyperthyroidism Poor historian Pulmonary nodules SMAS (superior mesenteric artery syndrome) TIA (transient ischemic attack) Vocal cord paralysis, unilateral complete Surgical History History of anesthesia reaction SLOW TO WAKE UP History of cardioversion History of cataract surgery RT/LEFT History of colonoscopy History of endoscopy History of esophagogastroduodenoscopy (EGD) History of total abdominal hysterectomy and bilateral salpingo-oophorectomy S/P cholecystectomy Family History Daughter Breast cancer Mother Cancer Uterine cancer Father Heart disease Sister Family history of diabetes mellitus Brother Family history of diabetes mellitus Aunt Family history of diabetes mellitus Aunt Family history of diabetes mellitus Other Family history non-contributory Hypertension No family history of adverse response to anesthesia Denies family history of Colon cancer Ovarian cancer Prostate cancer Myocardial infarction Social History Smoking Status: Never smoker Tobacco Type: Cigarettes Second Hand Exposure: No; Do You Dip or Chew Tobacco: No; Tobacco Cessation Education Requested by Patient: No Hx Alcohol Use: No Hx Substance Use: No Preferred Language: Sinhala Communication Ability: Effective Visual Impairment: No Limitations Hearing Ability: Normal Broadcast Maintenance Technician Required: No Beliefs That Will Affect Care: None marital status: / Current Living Situation: Alone current occupational status: retired How many Children do You have: 3 Other Information That Helps Us Care for You: No Feels Safe at Home: Yes Safety Concerns: Feels Safe At This Time Childhood Exposure to Second-Hand Smoke: Yes Diet Comment: regular caffeine: Yes during the past year weight has: remained stable Dental Care, Regularly: No Physical Activity Frequency: Does not Exercise Seatbelt Use: always Sunscreen Use: Yes Assistive Devices: None Results & Data ([facility]) Vital Signs (Past 12 Hours) Vital Signs Temp Pulse Pulse Resp BP Pulse Ox O2 Del Method 07/30/22 15:27 73 07/30/22 15:26 36.7 C 78 18 129/67 92 Room Air 07/30/22 11:42 36.7 C 96 H 18 102/67 90 Room Air 07/30/22 08:10 36.7 C 84 18 137/77 94 Room Air 07/30/22 07:14 Room Air 07/30/22 07:14 123 H PG Care Time/CCT Total # of Minutes Spent Total Time Spent with Patient: Total time spent is greater than 50% in coordination of care (as documented) at patient's floor/unit and/or counseling patient: Coding Diagnoses
[2022-07-30] MEDS: ATORVASTATIN 10 MG TAB PO SCH (20:09)
[2022-07-30] MEDS: MIRTAZAPINE TAB 15 MG TAB PO SCH (20:09)
[2022-07-30] MEDS: LATANOPROST 0.005% OP SOLN 2.5 ML BTL OPB SCH (20:10)
[2022-07-31] MEDS: methIMAzole 5 MG TABLET PO SCH (05:54)
[2022-07-31 06:15] LABS: Hematocrit (blood only) 30.7 % (37.0-47.0); Hemoglobin 9.6 g/dl (12.0-16.0); Mean Corpuscular Hemoglobin 29.4 pg (25.0-34.0); Mean Corpuscular Hgb Conc 31.3 g/dL (32.0-36.0); Mean Corpuscular Volume 93.9 fL (80.0-100.0); Mean Platelet Volume 10.4 fL (9.4-12.4); Platelet Count 208 K/uL (130-400); RDW Coefficient of Variation 19.2 % (11.5-14.5); Red Blood Count 3.27 M/uL (4.20-5.40); White Blood Count 11.72 K/ul (4.8-10.8)
[2022-07-31 06:33] LABS: BUN Creatinine Ratio 26.4 (10-20); Calcium 7.5 mg/dl (8.5-10.1); Creatinine Clr Calc Pharmacy 44.8 ml/min; Est GFR (African American) 91.7 ml/min; Est GFR (Non-African American) 79.1 ml/min; Potassium 4.4 mmol/L (3.5-5.1)
[2022-07-31] MEDS: APIXABAN 2.5 MG TAB PO SCH ×2 (08:42→20:22)
[2022-07-31] MEDS: dilTIAZem HCL 120 MG CAPCR PO SCH (08:42)
[2022-07-31] MEDS: ANUSOL SUPP 1 EA PR SCH ×3 (08:42→20:27)
[2022-07-31] MEDS: ACETAMINOPHEN 500 MG TAB PO SCH ×3 (08:42→20:22)
[2022-07-31] MEDS: SENNA 8.6 MG TAB PO SCH (08:43)
[2022-07-31] MEDS: UMECLIDINIUM/VILANTEROL 62.5/25MCG 7 PUFFS/INHALER INH SCH (08:43)
[2022-07-31] MEDS: PANTOprazole 40 MG in SYRINGE 0 ML IV SCH ×2 (08:43→20:23)
[2022-07-31] MEDS: FLUTICASONE FUROATE 100MCG 14 PUFFS/INHALER INH SCH (08:43)
[2022-07-31] MEDS: POLYETHYLENE (MIRALAX) 17 GM PACK PO SCH (08:43)
[2022-07-31] MEDS: CEROVITE ADV FORMULA TAB PO SCH (10:14)
--- NOTE | 2022-07-31 15:56 | Hospitalist Progress Note ---
Date of Service July 31, 2022 Assessment & Plan (1) 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: Plan: left hip - s/p ORIF, POD #3 - Dr Doran, [facility]. Appreciate Ortho recs participating in PT Pain - dilaudid prn. Tramadol prn. Scheduled PO tylenol 1gm TID. [facility] for rehab when accepted (2) Acute blood loss anemia: Plan: At time of admission there was concern for GI bleeding, possibly upper in location. Seen by GI - EGD declined by patient. She is s/p 2 units of PRBCs since admission - both units prior to her hip ORIF. H/H stable this am once again. CBC in am for stability. Ferritin 51. Transferrin sat 26% but was 11% just 1 month ago. B12/folate levels satisfactory. Eliquis 2.5mg BID started today cautiously (using in place of Xarelto). Cont PPI twice daily. (3) Atrial fibrillation: Plan: Typically on cardizem CD 240mg daily + Xarelto daily. Was on this regimen at home pre-hospital. With using the equivalent of her home dose (was on cardizem IR 60mg QID at one point over the weekend) her rates were slow, often in the upper 40s/low 50s). We cut back to 30mg qid and she then was too fast with rates >100. yesterday, she received cardizem CD 120mg and her rates were still too fast. A one-time dose of 30mg IR cardizem was given and her HR dipped into the 40s. cardiology on consult Continue Eliquis 2.5mg BID for anticoagulation. Will use this moving forward in esther of xarelto. (4) TIA (transient ischemic attack): Plan: Recent admission 06/2022 for such; w/u including MRI brain negative for acute CVA. Resumed anticoagulation today. (5) HLD (hyperlipidemia): Plan: cont lipitor (6) COPD (chronic obstructive pulmonary disease): Plan: No flare at this time. Cont home inhalers. Lungs clear again today. Stable O2 sats mid 90s in RA. (7) Hypertension: Plan: BPs stable at this time (8) Hyperthyroidism: Plan: TSH wnl 07/05/22. Cont methimazole. (9) SMAS (superior mesenteric artery syndrome): Plan: s/p surgery at [facility] 05/2022 steristrips still present on midline abdominal wound but wound is fully healed at this time (10) Chronic renal failure (CRF), stage 3b: Plan: CrCl at baseline appears to be 30-50 range Creatinine continues to remain stable bmp am (11) Vitamin D deficiency: Plan: 25-OH level 18 Rx: ergocalciferol 24650 units qweekly x 8 weeks - first dose given 07/29/22 (12) DVT prophylaxis: Plan: resume Eliquis 2.5mg BID today (13) Insomnia: Plan: present for months can't fall asleep nor stay asleep during this time period appetite has been poor and she has lost a considerable amount of weight started remeron 7.5mg HS on 07/29/22 tolerated such I counseled her about this medication - did tell her this is an antidepressant but will help sleep/appetite She is ok with continuing (14) Heme positive stool: Plan: by report pt had a firm, hard stool that had a minimal amount of BRB on 07/29/22 JONES today by myself -- hemorrhoid at 6 o'clock cont anusol H/H remain stable cbc am (15) Severe protein-calorie malnutrition: Plan: had lost 15-20 # of weight from fall 2021 to winter 2022 prior to her SMA syndrome surgery 05/2022 albumin low in the mid 2's remeron should help w/ appetite add MVI boost etc low albumin contributing to her serous fluid weeping from incisions, etc (16) PFO (patent foramen ovale): Plan: Possibly PFO with intra atrial shunt on echo cardiology on consult, appreciate recs Plan dispo - [facility] - when accepted await cardiology final recs Admission and Anticipated Discharge Date Admission Date: July 26, 2022 Subjective patient seen and examined, no new complaints Review of Systems Review of Systems: The patient is awake, alert and oriented 3, well developed and well nourished, normocephalic and atraumatic, lying in bed and in no acute distress. HEENT--PERRL, EOMI, mucous membranes and oropharynx mildly dry Neck--supple. No JVD. No bruits. Thyroid normal, trachea midline, no adenopathy. Heart--normal S1 and S2. No murmurs, rubs or gallops. Lungs--clear bilaterally, no respiratory distress, no accessory muscle use. Abdomen--normal bowel sounds and soft. Mild epigastric and left sided abdominal pain Extremities--no cyanosis or clubbing. No edema. Dermatologic--normal skin turgor, normal color, no abnormal lymph nodes, no rash. Neurologic--cranial nerves II through XII grossly intact. Rheumatologic--normal range of motion. Psychiatric--normal affect. Results & Data Results & Data ([facility]) Vital Signs (Past 12 Hours) Vital Signs Temp Pulse Pulse Resp BP Pulse Ox O2 Del Method 07/31/22 15:00 98.1 F 107 H 18 127/73 93 Room Air 07/31/22 11:00 97.9 F 80 17 116/81 94 Room Air 07/31/22 07:16 Room Air 07/31/22 07:00 98.2 F 71 18 117/70 91 Room Air 07/31/22 07:13 93 H PG Care Time/CCT Total # of Minutes Spent Total Time Spent with Patient: Total time spent is greater than 50% in coordination of care (as documented) at patient's floor/unit and/or counseling patient: Coding Level of Care Code 59381 SUB INP/OBS CARE 2/35MIN Diagnoses 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 (6) COPD (chronic obstructive pulmonary disease) COPD type: unspecified COPD Qualified Code(s): J44.9 - Chronic obstructive pulmonary disease, unspecified (7) Hypertension Hypertension type: essential hypertension Qualified Code(s): I10 - Essential (primary) hypertension
[2022-07-31] MEDS: ATORVASTATIN 10 MG TAB PO SCH (20:22)
[2022-07-31] MEDS: MIRTAZAPINE TAB 15 MG TAB PO SCH (20:22)
[2022-07-31] MEDS: LATANOPROST 0.005% OP SOLN 2.5 ML BTL OPB SCH (20:23)
[2022-08-01] MEDS: methIMAzole 5 MG TABLET PO SCH (03:00)
[2022-08-01 06:21] LABS: Hemoglobin 9.1 g/dl (12.0-16.0); Mean Corpuscular Hemoglobin 29.6 pg (25.0-34.0); Mean Corpuscular Hgb Conc 31.4 g/dL (32.0-36.0); Mean Corpuscular Volume 94.5 fL (80.0-100.0); Mean Platelet Volume 10.2 fL (9.4-12.4); Platelet Count 185 K/uL (130-400); RDW Coefficient of Variation 18.6 % (11.5-14.5); RDW Standard Deviation 63.7 fL (36.4-46.3); Red Blood Count 3.07 M/uL (4.20-5.40); White Blood Count 9.11 K/ul (4.8-10.8)
[2022-08-01] MEDS: PANTOprazole 40 MG in SYRINGE 0 ML IV SCH (07:38)
[2022-08-01] MEDS: ANUSOL SUPP 1 EA PR SCH ×2 (07:39→12:59)
[2022-08-01] MEDS: APIXABAN 2.5 MG TAB PO SCH (07:39)
[2022-08-01] MEDS: SENNA 8.6 MG TAB PO SCH (07:39)
[2022-08-01] MEDS: CEROVITE ADV FORMULA TAB PO SCH (07:39)
[2022-08-01] MEDS: dilTIAZem HCL 120 MG CAPCR PO SCH (07:39)
[2022-08-01] MEDS: POLYETHYLENE (MIRALAX) 17 GM PACK PO SCH (07:40)
[2022-08-01] MEDS: ACETAMINOPHEN 500 MG TAB PO SCH ×2 (07:42→12:58)
[2022-08-01] MEDS: FLUTICASONE FUROATE 100MCG 14 PUFFS/INHALER INH SCH (07:43)
[2022-08-01] MEDS: UMECLIDINIUM/VILANTEROL 62.5/25MCG 7 PUFFS/INHALER INH SCH (07:43)
--- NOTE | 2022-08-01 13:32 | Hospitalist Progress Note ---
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 Appreciate Ortho recs participating in PT Pain - dilaudid prn. Tramadol prn. Scheduled PO tylenol 1gm TID. [facility] for rehab when accepted (2) Acute blood loss anemia: Plan: At time of admission there was concern for GI bleeding, possibly upper in location. Seen by GI - EGD declined by patient. She is s/p 2 units of PRBCs since admission - both units prior to her hip ORIF. H/H stable this am once again. CBC in am for stability. Ferritin 51. Transferrin sat 26% but was 11% just 1 month ago. B12/folate levels satisfactory. Eliquis 2.5mg BID started today cautiously (using in place of Xarelto). Cont PPI twice daily. (3) Atrial fibrillation: Plan: Typically on cardizem CD 240mg daily + Xarelto daily. Was on this regimen at home pre-hospital. With using the equivalent of her home dose (was on cardizem IR 60mg QID at one point over the weekend) her rates were slow, often in the upper 40s/low 50s). We cut back to 30mg qid and she then was too fast with rates >100. yesterday, she received cardizem CD 120mg and her rates were still too fast. A one-time dose of 30mg IR cardizem was given and her HR dipped into the 40s. cardiology on consult Continue Eliquis 2.5mg BID for anticoagulation. Will use this moving forward in esther of xarelto. (4) TIA (transient ischemic attack): Plan: Recent admission 06/2022 for such; w/u including MRI brain negative for acute CVA. Resumed anticoagulation today. (5) HLD (hyperlipidemia): Plan: cont lipitor (6) COPD (chronic obstructive pulmonary disease): Plan: No flare at this time. Cont home inhalers. Lungs clear again today. Stable O2 sats mid 90s in RA. (7) Hypertension: Plan: BPs stable at this time (8) Hyperthyroidism: Plan: TSH wnl 07/05/22. Cont methimazole. (9) SMAS (superior mesenteric artery syndrome): Plan: s/p surgery at [facility] 05/2022 steristrips still present on midline abdominal wound but wound is fully healed at this time (10) Chronic renal failure (CRF), stage 3b: Plan: CrCl at baseline appears to be 30-50 range Creatinine continues to remain stable bmp am (11) Vitamin D deficiency: Plan: 25-OH level 18 Rx: ergocalciferol 89385 units qweekly x 8 weeks - first dose given 07/29/22 (12) DVT prophylaxis: Plan: resume Eliquis 2.5mg BID today (13) Insomnia: Plan: present for months can't fall asleep nor stay asleep during this time period appetite has been poor and she has lost a considerable amount of weight started remeron 7.5mg HS on 07/29/22 tolerated such I counseled her about this medication - did tell her this is an antidepressant but will help sleep/appetite She is ok with continuing (14) Heme positive stool: Plan: by report pt had a firm, hard stool that had a minimal amount of BRB on 07/29/22 JONES today by myself -- hemorrhoid at 6 o'clock cont anusol H/H remain stable cbc am (15) Severe protein-calorie malnutrition: Plan: had lost 15-20 # of weight from fall 2021 to winter 2022 prior to her SMA syndrome surgery 05/2022 albumin low in the mid 2's remeron should help w/ appetite add MVI boost etc low albumin contributing to her serous fluid weeping from incisions, etc (16) PFO (patent foramen ovale): Plan: Possibly PFO with intra atrial shunt on echo cardiology on consult, appreciate recs, no need for closure patient on apixaban Plan dispo - [facility] - when accepted await cardiology final recs Admission and Anticipated Discharge Date Admission Date: July 26, 2022 Subjective patient seen and examined, no new complaints Review of Systems Review of Systems: All systems reviewed are negative, apart from the ones contained in the history. Physical Exam Physical Exam: The patient is awake, alert and oriented 3, well developed and well nourished, normocephalic and atraumatic, lying in bed and in no acute distress. HEENT--PERRL, EOMI, mucous membranes and oropharynx mildly dry Neck--supple. No JVD. No bruits. Thyroid normal, trachea midline, no adenopathy. Heart--normal S1 and S2. No murmurs, rubs or gallops. Lungs--clear bilaterally, no respiratory distress, no accessory muscle use. Abdomen--normal bowel sounds and soft. Mild epigastric and left sided abdominal pain Extremities--no cyanosis or clubbing. No edema. Dermatologic--normal skin turgor, normal color, no abnormal lymph nodes, no rash. Neurologic--cranial nerves II through XII grossly intact. Rheumatologic--normal range of motion. Psychiatric--normal affect. 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 (6) COPD (chronic obstructive pulmonary disease) COPD type: unspecified COPD Qualified Code(s): J44.9 - Chronic obstructive pulmonary disease, unspecified (7) Hypertension Hypertension type: essential hypertension Qualified Code(s): I10 - Essential (primary) hypertension
--- NOTE | 2022-08-01 13:39 | Discharge Summary ---
Date of Service August 01, 2022 Admission HPI Per Admitting Provider Lakeshia Junior is a 82-year-old female with a past medical history of A-fib on Xarelto, COPD, GERD, hyperlipidemia, hypertension, anemia, heart failure with preserved ejection fraction last EF 60%, hypothyroidism who presented after she tripped over a curb and sustained a left hip fracture. She recommended for admission for operative repair of her left hip, recommended for admission to medical service given age/comorbidities and anticoagulant use Ground level fall, was walking when she tripped over a curb and fell to her left hip On Xarelto, did not strike head. CT-H naf. Patient reports that after she got out of the hospital she was doing okay, leg swelling has been improving and has not worsened. She has not had any chest pain, shortness of breath, lightheadedness, dizziness, difficulty breathing which contributed to her fall.She was seeing her PCP this morning when she tripped over the curb and had immediate pain causing her to be transported to the ER. She has had some gradual decrease in overall energy and easy exercise fatigue. Had been following up for anemia with a CBC drawn this morning. Initially denies but red blood per rectum and melena. On further increase notes that her bowel moods are generally very dark brown, is not sure if they have been black, have not been tarry. Does have history of SMA reconstruction, past history of reflux/GERD. Denies any epigastric pain, but does note she does have some burping/reflux per daughter She took her rivaroxaban last night, took her aspirin this morning Feels she has been breathing well, no cough/sputum production/fever/chills or sh ortness of breath. Medical History: Reviewed Medications: Reviewed Surgical History: Reviewed Allergies: Reviewed Social History: Reviewed Code Status: Full Code Principal Diagnosis Hip fracture, GI bleed Discharge Exam The patient is awake, alert and oriented 3, well developed and well nourished, normocephalic and atraumatic, lying in bed and in no acute distress. HEENT--PERRL, EOMI, mucous membranes and oropharynx mildly dry Neck--supple. No JVD. No bruits. Thyroid normal, trachea midline, no adenopathy. Heart--normal S1 and S2. No murmurs, rubs or gallops. Lungs--clear bilaterally, no respiratory distress, no accessory muscle use. Abdomen--normal bowel sounds and soft. Mild epigastric and left sided abdominal pain Extremities--no cyanosis or clubbing. No edema. Dermatologic--normal skin turgor, normal color, no abnormal lymph nodes, no rash. Neurologic--cranial nerves II through XII grossly intact. Rheumatologic--normal range of motion. Psychiatric--normal affect. 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 Appreciate Ortho recs participating in PT Pain - dilaudid prn. Tramadol prn. Scheduled PO tylenol 1gm TID. [facility] for rehab when accepted (2) Acute blood loss anemia: At time of admission there was concern for GI bleeding, possibly upper in location. Seen by GI - EGD declined by patient. She is s/p 2 units of PRBCs since admission - both units prior to her hip ORIF. H/H stable this am once again. CBC in am for stability. Ferritin 51. Transferrin sat 26% but was 11% just 1 month ago. B12/folate levels satisfactory. Eliquis 2.5mg BID started today cautiously (using in place of Xarelto). Cont PPI twice daily. (3) Atrial fibrillation: Typically on cardizem CD 240mg daily + Xarelto daily. Was on this regimen at home pre-hospital. With using the equivalent of her home dose (was on cardizem IR 60mg QID at one point over the weekend) her rates were slow, often in the upper 40s/low 50s). We cut back to 30mg qid and she then was too fast with rates >100. yesterday, she received cardizem CD 120mg and her rates were still too fast. A one-time dose of 30mg IR cardizem was given and her HR dipped into the 40s. cardiology on consult Continue Eliquis 2.5mg BID for anticoagulation. Will use this moving forward in lieu of xarelto. (4) TIA (transient ischemic attack): Recent admission 06/2022 for such; w/u including MRI brain negative for acute CVA. Resumed anticoagulation today. (5) HLD (hyperlipidemia): cont lipitor (6) COPD (chronic obstructive pulmonary disease): No flare at this time. Cont home inhalers. Lungs clear again today. Stable O2 sats mid 90s in RA. (7) Hypertension: BPs stable at this time (8) Hyperthyroidism: TSH wnl 07/05/22. Cont methimazole. (9) SMAS (superior mesenteric artery syndrome): s/p surgery at [facility] 05/2022 steristrips still present on midline abdominal wound but wound is fully healed at this time (10) Chronic renal failure (CRF), stage 3b: CrCl at baseline appears to be 30-50 range Creatinine continues to remain stable bmp am (11) Vitamin D deficiency: 25-OH level 18 Rx: ergocalciferol 25693 units qweekly x 8 weeks - first dose given 07/29/22 (12) DVT prophylaxis: resume Eliquis 2.5mg BID today (13) Insomnia: present for months can't fall asleep nor stay asleep during this time period appetite has been poor and she has lost a considerable amount of weight started remeron 7.5mg HS on 07/29/22 tolerated such I counseled her about this medication - did tell her this is an antidepressant but will help sleep/appetite She is ok with continuing (14) Heme positive stool: by report pt had a firm, hard stool that had a minimal amount of BRB on 07/29/22 JONES today by myself -- hemorrhoid at 6 o'clock cont anusol H/H remain stable cbc am (15) Severe protein-calorie malnutrition: had lost 15-20 # of weight from fall 2021 to winter 2022 prior to her SMA syndrome surgery 05/2022 albumin low in the mid 2's remeron should help w/ appetite add MVI boost etc low albumin contributing to her serous fluid weeping from incisions, etc (16) PFO (patent foramen ovale): Possibly PFO with intra atrial shunt on echo cardiology on consult, appreciate recs, no need for closure patient on apixaban Plan dispo - [facility] - when accepted await cardiology final recs Total Time Total Time Spent Total Time Spent (In Minutes): 35 Discharge Plan Discharge Items Patient Disposition: Transfer Inpatient Rehab Fac Reason For Visit: HIP FXR, ACUTE ON CHRONIC ANEMIA Discharge Diagnosis: Left Intertrochanteric Femur Fracture Activity: Per Instructions section Weightbearing: Full weightbearing Non-emergency contact: Primary Care Provider Call non-emergency contact if: you have any medication questions Follow-up/Referrals: Carlton Mendez III, CRNP [Primary Care Provider] - Figueroa Doran MD [Physician] - (Orthopedic follow-up 2-3 weeks from surgery date.) Diet: Regular Addtl Attending Provider Instructions: Routine wound care with dry dressing changes daily May weightbear as tolerated on left leg Pending Studies at Discharge: No Stand-Alone Forms: My [facility] [employer] Skilled Items Patient informed of condition?: Yes DNR: No Discharge Level of Care: Acute rehab Communicable Disease: No Discharge Prognosis: Stable Lines: None Urinary Catheter: No Medications and DC Order Prescriptions: New Eliquis 2.5 mg Tablet 2.5 mg PO BID 30 Days Qty: 60 0RF diltiazem HCl [Cardizem CD] 120 mg Capsule,Extended Release 24hr 120 mg PO QAM 30 Days Qty: 30 0RF atorvastatin 10 mg Tablet 10 mg PO HS 30 Days Qty: 30 0RF Continued ipratropium-albuterol 0.5 mg-3 mg(2.5 mg base)/3 mL solution for nebulization 3 ml inhalation BID PRN (Reason: shortness of breath or wheezing) Qty: 15 1RF Rx Instructions: INHALE 3 ML INHALATION TWICE A DAY NEEDED FOR SHORTNESS OF BREATH OR WHEEZING ferrous sulfate [Iron (ferrous sulfate)] 325 mg (65 mg iron) tablet 325 mg PO QAM Qty: 90 1RF atorvastatin 10 mg tablet 10 mg PO QPM Qty: 90 1RF Trelegy Ellipta 100-62.5-25 mcg blister with device 1 inh inhalation DAILY Qty: 60 2RF benazepril 20 mg tablet 40 mg PO QPM Qty: 180 3RF pantoprazole 40 mg tablet,delayed release (DR/EC) 40 mg PO BID Qty: 180 3RF Rx Instructions: TAKE QAM & MID AFTERNOON albuterol sulfate [Ventolin HFA] 90 mcg/actuation HFA aerosol inhaler 2 puff INHALATION QID PRN (Reason: Shortness Of Breath Or Wheezing) Qty: 8.5 1RF latanoprost [Xalatan] 0.005 % drops 1 drp OPB HS methimazole 5 mg tablet 5 mg PO DAILYBB aspirin 81 mg Tablet,Chewable 81 mg PO DAILY Discontinued diltiazem HCl 240 mg capsule,extended release 24hr 240 mg PO QAM Xarelto 20 mg tablet 20 mg PO QDD Rx Instructions: must administer with evening meal Discharge Orders: Discharge Order (Routine); Ordered 08/01/22 Ordered By: Montana Javed Admission Data Admit Date/Time: 07/26/22 15:07 Attending Provider: Montana Javed Admit Provider: Corwin Elise Primary Care Provider: Carlton Mnedez III Other Providers: [facility] ; Corwin Elise ; Carlos Manuel Su ; Sanchez Harris ; Wolfgang Wilson Coding Level of Care Code 31169 INP/OBS DISCH >30 MIN Diagnoses 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
--- NOTE | 2022-08-01 13:57 | Progress Notes ---
DATE OF SERVICE: 08/01/2022. SUBJECTIVE: An 82-year-old female postoperative day #4 from IM nailing of a left intertrochanteric f racture. She is doing pretty well. Pain is getting better daily. No new complaints. OBJECTIVE: VITAL SIGNS: Temperature 36.5. Vital signs are stable. GENERAL: Shows a pleasant, cachectic elderly female. She is sitting in her bedside chair and looks quite comfortable this afternoon. EXTREMITIES: Examination of the left hip reveals the dressing to be in place. She does have a littl e bit of serosanguineous drainage on this. She can dorsiflex and plantarflex her foot appropriately. She is neurologically intact. LABORATORY DATA: Hemoglobin 9.1. Hematocrit 29.0. ASSESSMENT: An 82-year-old female now postop day 4 from IM nailing of a left intertrochanteric fract ure. Orthopedically, she is doing well. Still having a little bit of drainage, but probably mostly related to her nutritional parameters and poor nutritional status. No signs of infection or problems . PLAN: 1. DVT prophylaxis includes thigh-high TEDs, SCDs, and Eliquis 2.5 mg twice a day. 2. PT/OT. She can fully weightbear as tolerated. 3. Routine wound care. She is to have this dressing changed daily. Paper tape with an ABD pad. 4. Pain control. Seems to be doing okay with current pain regimen. I would limit any narcotics to avoid confusion, 5. Medical management as per the medicine service. 5. Disposition: She is orthopedically okay for discharge any time medically stable. I need to see her back 2-3 weeks out from surgery date. Any orthopedic questions can be directed to me at . Job ID: [id number]
== END 2022-08-01 14:55 | DRG 480 ==
LOC: ED 11:32 → EDINP 15:07 → SUATTDRO 15:07 → 2E 17:22

== ENCOUNTER 2023-04-14 21:22 | Inpatient (IN) ==
[2023-04-14] MEDS ORDERED: ONDANSETRON INJ 2 MG/ML 2 ML VIAL IV STA (21:36)
[2023-04-14] MEDS ORDERED: FAMOTIDINE 20MG IV PUSH 20 MG/5 ML SYR IV STA (21:36)
[2023-04-14] MEDS ORDERED: SODIUM CHLORIDE 0.9% 500 ML IV SCH (21:45)
--- NOTE | 2023-04-14 21:56 | Emergency Department Note ---
History of Present Illness General Chief complaint: Diarrhea Stated complaint: SHAKING, CAN'T GET WARM, DIARRHEA Time Seen by Provider: 04/14/23 21:28 History of Present Illness This 83-year-old female presents to the ER complaining of fever, chills, nausea, diarrhea upset stomach and generalized illness for the past day. She is concerned she might have another UTI. No recent antibiotics. No well water. No recent travel. Patient denies chest pain, headache, neck stiffness, sore throat, flank pain. She has chronic back pain. Home Medications Medication Instructions Recorded Confirmed Type latanoprost 0.005 % eye drops 1 drp OPB HS 11/20/18 04/14/23 History (Xalatan) ipratropium 0.5 mg-albuterol 3 mg 3 ml inhalation BID PRN shortness 08/24/21 04/14/23 Rx (2.5 mg base)/3 mL nebulization of breath or wheezing #15 mL soln albuterol sulfate 90 mcg/actuation 2 puff inhalation QID PRN 02/22/22 04/14/23 Rx aerosol inhaler (Ventolin HFA) Shortness Of Breath Or Wheezing #8.5 grams benazepril 20 mg tablet 40 mg (2 x 20 mg) PO QPM #180 tabs 04/25/22 04/14/23 Rx apixaban 2.5 mg tablet (Eliquis) 2.5 mg PO BID 90 days #180 tabs 08/16/22 04/14/23 Rx methimazole 5 mg tablet 5 mg PO DAILYBB #90 tabs 01/03/23 04/14/23 Rx aspirin 81 mg tablet,delayed 81 mg PO DAILY 02/06/23 04/14/23 History release atorvastatin 10 mg tablet 10 mg PO DAILY 03/01/23 04/14/23 History fluticasone fur. 100 mcg-umeclid 1 inh inhalation DAILY #60 ea 03/08/23 04/14/23 Rx 62.5 mcg-vilant 25 mcg inhalat.powder (Trelegy Ellipta) sucralfate 1 gram tablet (Carafate) 1 g PO BID #180 tabs 03/26/23 04/14/23 Rx diltiazem HCl 180 mg capsule,24 180 mg PO DAILY 11/16/23 11/19/23 History hr,extended release pantoprazole 40 mg tablet,delayed 40 mg PO BID 04/14/23 04/14/23 History release Allergies Allergy/AdvReac Type Severity Reaction Status Date / Time No Known Drug Allergies Allergy Verified 04/11/23 14:49 adhesive tape AdvReac Intermediate PULLS SKIN Verified 04/11/23 14:49 OFF Past Med/Surg History Medical History Osteoporosis Pleural effusion due to congestive heart failure Liver lesion Multiple pulmonary nodules determined by computed tomography of lung Chronic obstructive pulmonary disease TIA (transient ischemic attack) SMAS (superior mesenteric artery syndrome) COHN (dyspnea on exertion) Atrial fibrillation Dx 4-5 years ago; on xarelto; hx cardioversion; follows with Dr. Bi Gunter historian HLD (hyperlipidemia) COPD (chronic obstructive pulmonary disease) Adrenal nodule Pulmonary nodules Vocal cord paralysis, unilateral complete Hyperthyroidism Acid reflux Glaucoma History of uterine cancer dx > 5 years; treated surgically Hypertension Surgical History S/P cholecystectomy History of anesthesia reaction SLOW TO WAKE UP History of esophagogastroduodenoscopy (EGD) History of cataract surgery RT/LEFT History of total abdominal hysterectomy and bilateral salpingo-oophorectomy History of cardioversion History of colonoscopy History of endoscopy Family History Daughter Breast cancer Mother Cancer Uterine cancer Father Heart disease Sister Family history of diabetes mellitus Brother Family history of diabetes mellitus Aunt Family history of diabetes mellitus Aunt Family history of diabetes mellitus Other Family history non-contributory Hypertension No family history of adverse response to anesthesia Denies family history of Colon cancer Ovarian cancer Prostate cancer Myocardial infarction Social History Smoking Status: Former smoker Tobacco Type: Cigarettes Age Started Using Tobacco: 18; Age Quit Using Tobacco: 52; packs per day: 1; Second Hand Exposure: No; Do You Dip or Chew Tobacco: No; Hx Alcohol Use: No Hx Substance Use: No Preferred Language: Tajik Communication Ability: Effective Visual Impairment: Partially Limited Hearing Ability: Normal Design Engineering Intern Required: No Beliefs That Will Affect Care: None marital status: / Current Living Situation: Alone current occupational status: retired How many Children do You have: 3 Feels Safe at Home: Yes Childhood Exposure to Second-Hand Smoke: Yes Diet: regular Diet Comment: regular caffeine: Yes during the past year weight has: remained stable Dental Care, Regularly: No Physical Activity Frequency: 3-4 Times per Week Seatbelt Use: always Sunscreen Use: No Assistive Devices: Glasses Review of Systems A total of 10 systems reviewed and were otherwise negative Physical Exam Vital Signs Vital Signs - 24 hr 04/14/23 21:25 04/14/23 21:36 04/14/23 22:05 Temperature 37.4 C Temperature Source Temporal Artery Scan Pulse Rate 72 109 H Pulse Rate [Right Finger] Pulse Rate from SpO2 Sensor Pulse Rhythm [Right Finger] Pulse Strength [Right Finger] Respiratory Rate 16 Respiratory Effort / Characteristics Respiratory Depth Respiratory Pattern Blood Pressure 181/126 H Blood Pressure [Right Arm] Blood Pressure Mean 144 Blood Pressure Mean [Right Arm] Blood Pressure Position [Right Arm] Pulse Oximetry 96 94 Oxygen Delivery Method Room Air Sepsis Recent Fever Within 48 Hours No Sepsis New/Unexplained Change in Mental Status No Sepsis Action Taken by Nursing No Action Required 04/14/23 22:05 04/14/23 22:09 04/14/23 22:10 Temperature Temperature Source Pulse Rate 113 H 118 H Pulse Rate [Right Finger] 115 H Pulse Rate from SpO2 Sensor 113 H 119 H Pulse Rhythm [Right Finger] Irregular Pulse Strength [Right Finger] Normal Respiratory Rate 18 18 24 Respiratory Effort / Characteristics Non-Labored Spontaneous Respiratory Depth Normal Respiratory Pattern Regular Blood Pressure 126/70 Blood Pressure [Right Arm] 126/70 Blood Pressure Mean 88 Blood Pressure Mean [Right Arm] 88 Blood Pressure Position [Right Arm] Lying Pulse Oximetry 93 93 93 Oxygen Delivery Method Room Air Room Air Room Air Sepsis Recent Fever Within 48 Hours Sepsis New/Unexplained Change in Mental Status Sepsis Action Taken by Nursing 04/14/23 22:20 04/14/23 22:30 04/14/23 22:40 Temperature Temperature Source Pulse Rate 98 H 88 94 H Pulse Rate [Right Finger] Pulse Rate from SpO2 Sensor 110 H 82 98 H Pulse Rhythm [Right Finger] Pulse Strength [Right Finger] Respiratory Rate 17 22 19 Respiratory Effort / Characteristics Respiratory Depth Respiratory Pattern Blood Pressure 120/69 Blood Pressure [Right Arm] Blood Pressure Mean 86 Blood Pressure Mean [Right Arm] Blood Pressure Position [Right Arm] Pulse Oximetry 94 91 94 Oxygen Delivery Method Room Air Room Air Sepsis Recent Fever Within 48 Hours Sepsis New/Unexplained Change in Mental Status Sepsis Action Taken by Nursing 04/14/23 22:50 04/14/23 23:00 04/14/23 23:10 Temperature Temperature Source Pulse Rate 89 99 H 91 H Pulse Rate [Right Finger] Pulse Rate from SpO2 Sensor 91 H 100 H 96 H Pulse Rhythm [Right Finger] Pulse Strength [Right Finger] Respiratory Rate 21 15 18 Respiratory Effort / Characteristics Respiratory Depth Respiratory Pattern Blood Pressure 128/58 L Blood Pressure [Right Arm] Blood Pressure Mean 81 Blood Pressure Mean [Right Arm] Blood Pressure Position [Right Arm] Pulse Oximetry 95 92 91 Oxygen Delivery Method Room Air Room Air Room Air Sepsis Recent Fever Within 48 Hours Sepsis New/Unexplained Change in Mental Status Sepsis Action Taken by Nursing 04/14/23 23:12 04/15/23 00:10 04/15/23 00:11 Temperature Temperature Source Pulse Rate 93 H 105 H Pulse Rate [Right Finger] Pulse Rate from SpO2 Sensor 99 H 119 H Pulse Rhythm [Right Finger] Pulse Strength [Right Finger] Respiratory Rate 21 18 Respiratory Effort / Characteristics Respiratory Depth Respiratory Pattern Blood Pressure 152/66 H Blood Pressure [Right Arm] Blood Pressure Mean 118 Blood Pressure Mean [Right Arm] Blood Pressure Position [Right Arm] Pulse Oximetry 93 95 Oxygen Delivery Method Sepsis Recent Fever Within 48 Hours Sepsis New/Unexplained Change in Mental Status Sepsis Action Taken by Nursing 04/15/23 00:20 04/15/23 00:30 Temperature Temperature Source Pulse Rate 93 H 96 H Pulse Rate [Right Finger] Pulse Rate from SpO2 Sensor 104 H 101 H Pulse Rhythm [Right Finger] Pulse Strength [Right Finger] Respiratory Rate 16 Respiratory Effort / Characteristics Respiratory Depth Respiratory Pattern Blood Pressure 122/64 Blood Pressure [Right Arm] Blood Pressure Mean 83 Blood Pressure Mean [Right Arm] Blood Pressure Position [Right Arm] Pulse Oximetry 94 90 Oxygen Delivery Method Room Air Sepsis Recent Fever Within 48 Hours Sepsis New/Unexplained Change in Mental Status Sepsis Action Taken by Nursing VITALS: Vitals are noted on the nurse's note and reviewed by myself. Vital signs stable. GENERAL: Pleasant female with daughter present, in no acute distress, nondiaphoretic, well-developed well-nourished. SKIN: The skin was without rashes, erythema, edema, or bruising. There is no tenting of the skin. Capillary reflex less than 2 seconds. HEAD: Normocephalic atraumatic. EARS: External auditory canals clear EYES: Pupils equal round and reactive to light and accommodation. Conjunctivae without injection, sclerae without icterus. Extraocular movements intact. NOSE: Patent, turbinates without inflammation or discharge. MOUTH: Mucous membranes moist. Pharynx without erythema or exudate. Uvula midline. Airway patent. Tongue does not deviate. NECK: Supple without nuchal rigidity. No lymphadenopathy. No thyromegaly. Cervical spine is nontender. No JVD. HEART: Regular rate and rhythm LUNGS: Clear to auscultation bilaterally without wheezes, rales or rhonchi. No retractions or accessory muscle use. ABDOMEN: Positive bowel sounds x 4. Normal tympanic percussion. Soft, tender to palpation mid abdomen, without masses or organomegaly. Garcia sign negative. No guarding or rebound tenderness. No CVA tenderness MUSCULOSKELETAL: No muscle atrophy, erythema, or edema noted. NEURO: Patient was alert and oriented to person place and time. Normal sensation to light and sharp touch. No focal neurological deficits. Course Administered Medications Discontinued Medications Sodium Chloride (Nss) 500 mls @ 999 mls/hr IV .Q31M HUNG Stop: 04/14/23 22:15 Last Infusion: 04/14/23 23:01 Dose: Infused Documented By: Admin: 04/14/23 22:22 Dose: 999 mls/hr Documented By: FLEECER Famotidine (Pepcid 20mg Iv Push) 20 mg in 5 mls @ 2.5 mls/min IV NOW STA Stop: 04/14/23 21:37 Last Admin: 04/14/23 22:22 Dose: 2.5 mls/min Documented By: FLEECER Piperacillin Sod/Tazobactam Sod (Zosyn) 4.5 gm in 100 mls @ 200 mls/hr IV NOW ONE Stop: 04/14/23 22:59 Last Infusion: 04/15/23 00:38 Dose: Infused Documented By: Admin: 04/14/23 22:57 Dose: 200 mls/hr Documented By: NURIA Vancomycin HCl 1,000 mg/ (Sodium Chloride) 520 mls @ 200 mls/hr IV NOW ONE Stop: 04/15/23 01:05 Last Admin: 04/14/23 23:05 Dose: 200 mls/hr Documented By: Sodium Chloride (Nss) 1,000 mls @ 999 mls/hr IV .Q1H1M ONE Stop: 04/15/23 00:08 Last Admin: 04/15/23 00:35 Dose: 999 mls/hr Documented By: Ioversol (Optiray 320 125ml) 125 ml IV ONCE ONE Stop: 04/15/23 00:10 Last Admin: 04/15/23 00:09 Dose: 116 ml Documented By: RACHEL Ondansetron HCl (Ondansetron Inj 2 Mg/Ml 2 Ml Vial) 4 mg IV NOW STA Stop: 04/14/23 21:37 Last Admin: 04/14/23 22:23 Dose: 4 mg Documented By: NURIA Medical Decision Making Medical Records Attestation: I reviewed the patient's medical records. Home Medications Current Medication List: was personally reviewed by me Laboratory Data Attestation: I reviewed the patient's lab results. 04/14/23 22:12 04/14/23 22:12 Lab Results 04/14/23 04/14/23 04/15/23 Range/Units 22:12 22:13 00:15 WBC 35.82 H* (4.8-10.8) K/ul RBC 3.62 L (4.20-5.40) M/uL Hgb 9.7 L (12.0-16.0) g/dl Hct 31.7 L (37.0-47.0) % MCV 87.6 (80.0-100.0) fL MCH 26.8 (25.0-34.0) pg MCHC 30.6 L (32.0-36.0) g/dL RDW Std Deviation 63.8 H (36.4-46.3) fL RDW Coeff of Rosio 20.1 H (11.5-14.5) % Plt Count 360 (130-400) K/uL MPV 9.5 (9.4-12.4) fL Immature Gran % (Auto) 0.8 % Neut % (Auto) 86.6 % Lymph % (Auto) 2.8 % Piute % (Auto) 8.9 % Eos % (Auto) 0.5 % Baso % (Auto) 0.4 % Neut # (Auto) 31.04 H (1.40-6.50) K/uL Lymph # (Auto) 1.02 L (1.20-3.40) K/uL Piute # (Auto) 3.18 H (0.11-0.59) K/uL Eos # (Auto) 0.18 (0.00-0.50) K/uL Baso # (Auto) 0.13 (0.00-0.20) K/uL Immature Gran # (Auto) 0.27 H (0.01-0.20) K/uL Anisocytosis Present Sodium 140 (136-145) mmol/L Potassium 3.6 (3.5-5.1) mmol/L Chloride 107 (98-107) mmol/L Carbon Dioxide 24 (21-32) mmol/L Anion Gap 9 (3-11) BUN 12 (6-23) mg/dl Creatinine 0.62 (0.6-1.2) mg/dl Est Cr Clr Drug Dosing 51.1 ml/min Est GFR ( Amer) 98.0 ml/min Est GFR (Non-Af Amer) 84.6 ml/min BUN/Creatinine Ratio 19.4 (10-20) Glucose 78 (70-99(Fasting)) mg/dl Lactate 1.9 (0.4-2.0) mmol/L Calcium 8.8 (8.6-10.3) mg/dl Magnesium 1.6 L (1.7-2.4) mg/dl Total Bilirubin 0.4 (0.2-1.0) mg/dl Direct Bilirubin 0.1 (0-0.2) mg/dl AST 14 (13-39) U/L ALT 12 (7-52) U/L Alkaline Phosphatase 116 H (34-104) U/L Troponin I High Sens 14.5 H (0-14) pg/ml Total Protein 6.9 (6.0-8.3) gm/dl Albumin 3.5 (3.4-5.0) gm/dl Procalcitonin 0.11 (0-0.5) ng/ml TSH 4.070 (0.300-4.500) uIu/ml Urine Color Yellow Urine Appearance Clear (Clear) Urine pH 5.5 (4.5-7.5) Ur Specific [place] 1.014 (1.000-1.030) Urine Protein Negative (Negative) Urine Glucose (UA) Negative (Negative) Urine Ketones Negative (Negative) Urine Blood Negative (Negative) Urine Nitrite Negative (Negative) Urine Bilirubin Negative (Negative) Urine Urobilinogen Negative (Negative) Ur Leukocyte Esterase Negative (Negative) Adenovirus (PCR) Not Detected (NotDetected) B. pertussis DNA (PCR) Not Detected (NotDetected) B.parapertussis DNA PCR Not Detected (NotDetected) C. pneumoniae DNA (PCR) Not Detected (NotDetected) Coronavirus OC43 (PCR) Not Detected (NotDetected) Coronavirus HKU1 (PCR) Not Detected (NotDetected) Coronavirus 229E (PCR) Not Detected (NotDetected) SARS-CoV-2 (PCR) Not Detected (NotDetected) Coronavirus NL63 (PCR) Not Detected (NotDetected) Human Metapneumovir PCR Not Detected (NotDetected) Influenza Type A (PCR) Not Detected (NotDetected) Influenza Type B (PCR) Not Detected (NotDetected) M. pneumoniae (PCR) Not Detected (NotDetected) Parainfluenza 1 (PCR) Not Detected (NotDetected) Parainfluenza 2 (PCR) Not Detected (NotDetected) Parainfluenza 3 (PCR) Not Detected (NotDetected) Parainfluenza 4 (PCR) Not Detected (NotDetected) RSV (PCR) Not Detected (NotDetected) Entero/Rhino (PCR) Not Detected (NotDetected) Imaging Data Attestation: I personally reviewed and interpreted this imaging study as follows: Radiologist's Impression: Abdomen/Pelvis CT 04/14/23 21:36 Exam(s): CT ABDOMEN + PELVIS With Contrast IV Amt: 116ML OPTIRAY 320 EXAM: CT Abdomen and Pelvis With Intravenous Contrast CLINICAL HISTORY: Reason for exam: mid abd pain, f/c, N/D. TECHNIQUE: Axial computed tomography images of the abdomen and pelvis with intravenous contrast. Automated exposure control was utilized for the study. A dose lowering technique was utilized adhering to the principles of ALARA. CONTRAST: Patient received 116ML OPTIRAY 320 of IV contrast COMPARISON: 06/02/2022 FINDINGS: Lung bases: Unremarkable. No mass. No consolidation. ABDOMEN: Liver: Markedly abnormal liver with approximately 15 new cystic lesions in bilateral lobes of the liver with the largest measuring up to 2.2 cm in the right lobe with surrounding edema. Findings are concerning for intrahepatic abscesses. The underlying liver parenchyma is also diffusely abnormal with a striated appearance to the liver parenchyma concerning for diffuse edema. No evidence of biliary dilatation. Gallbladder and bile ducts: Gallbladder has been removed. Pancreas: Unremarkable. No mass. No ductal dilation. Spleen: Unremarkable. No splenomegaly. Adrenals: 1.5 cm left adrenal nodules unchanged from prior exam. Kidneys and ureters: Numerous simple bilateral renal cysts measuring up to 1.6 cm. No further workup is required. No hydronephrosis. Stomach and bowel: Unremarkable. No obstruction. No mucosal thickening. PELVIS: Appendix: No findings to suggest acute appendicitis. Bladder: Unremarkable. No mass. Reproductive: Uterus has been removed. ABDOMEN and PELVIS: Intraperitoneal space: Unremarkable. No free air. No significant fluid collection. Bones/joints: No acute fracture. No dislocation. Soft tissues: Unremarkable. Vasculature: Unremarkable. No abdominal aortic aneurysm. Lymph nodes: Unremarkable. No enlarged lymph nodes. IMPRESSION: Markedly abnormal liver with approximately 15 new cystic lesions in bilateral lobes of the liver with the largest measuring up to 2.2 cm in the right lobe with surrounding edema. Findings are concerning for intrahepatic abscesses. The underlying liver parenchyma is also diffusely abnormal with a striated appearance to the liver parenchyma concerning for diffuse edema. No evidence of biliary dilatation. Electronically signed by: Alfonso Vasquez M.D. 04/15/23 01:43 AM Chest CTA 04/14/23 22:39 Exam(s): CTA CHEST EXAM: CT Angiography Chest With Intravenous Contrast CLINICAL HISTORY: Reason for exam: PE, sepsis. TECHNIQUE: Axial computed tomographic angiography images of the chest with intravenous contrast. Automated exposure control was utilized for the study. A dose lowering technique was utilized adhering to the principles of ALARA. MIP reconstructed images were created and reviewed. COMPARISON: No relevant prior studies available. FINDINGS: Pulmonary arteries: Unremarkable. No CT evidence of pulmonary embolism. Aorta: No acute findings. No thoracic aortic aneurysm. 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 Lungs: Centrilobular emphysema. No mass. No consolidation. Pleural space: Tiny left pleural effusion. Bronchial wall thickening and opacification of the left lower lobe bronchials with patchy pulmonary opacities concerning for an infectious etiology. No pneumothorax. Heart: Unremarkable. No cardiomegaly. No significant pericardial effusion. No evidence of RV dysfunction. Bones/joints: No acute fracture. No dislocation. Soft tissues: Unremarkable. Lymph nodes: Unremarkable. No enlarged lymph nodes. IMPRESSION: 1. No CT evidence of pulmonary embolism. 2. Bronchial wall thickening and opacification of the left lower lobe bronchials with patchy pulmonary opacities concerning for an infectious etiology. Electronically signed by: Alfonso Vasquez M.D. 04/15/23 01:36 AM [facility] Narrative Prior records/ancillary studies reviewed and summarized above. Nursing notes reviewed. Additional history obtained from family. The patient's history was concerning for fever, chills, nausea, diarrhea and generalized illness. Differential diagnosis: Etiologies such as metabolic, stool infection, infection, hypo/hyperglycemia, electrolyte abnormalities, cardiac sources, intracerebral event, toxicologic, neurologic, as well as others were entertained. Physical examination: As above. ER treatment provided: IV Lock An order was placed for continuous cardiac monitoring. The monitor shows a rate of 60-100 with a sinus rhythm per my interpretation. IV fluids, Zofran and Pepcid were ordered Vancomycin and Zosyn for sepsis On reassessment the patient felt better. Diagnostics interpretation by me: ECG: Ordered for weakness EKG: Irregularly irregular with no acute ST-T wave changes. Rate of 102. Impression A-fib rate of 102 independently interpreted by myself The labs Independently Interpreted by myself revealed severe leukocytosis, stable H&H, mildly elevated troponin, negative lactic, negative procalcitonin Blood cultures pending Imaging studies: Chest x-ray with no acute consolidation, pneumothorax or free air per my independent interpretation CT CTAs were reviewed by myself and read by radiology as above. Patient was already started on broad-spectrum antibiotics Consultation: A consultation was placed with the hospitalist. The case was discussed and diagnostics were reviewed. The patient was evaluated in the ER for further treatment. Exam and history seem consistent with pneumonia with severe leukocytosis who was noted to have liver abscesses on CAT scan and CTA was concerning for pneumonia. Patient was started on broad-spectrum antibiotics for the severe leukocytosis. Magnesium was replaced. She was hydrated as above. Medicine was consulted and case is discussed. She will be admitted to the medical service for further evaluation and treatment. At time of admission, patient still has been unable to provide a stool specimen. She denies any recent antibiotics or travel. No well water. Negative urine. By the evaluation outlined above emergent etiologies such as intracerebral event, toxologic, neurologic, abnormalities blood glucose, metabolic, as well as others were deemed relatively unlikely. The pt informed about the findings as listed above. All questions were answered and pleased with the treatment. The chart was completed utilizing [employer] Speech voice recognition software. Grammatical errors, random word insertions, pronoun errors, and incomplete sentences are an occassional consequence of this system due to software limitations, ambient noise, and hardware issues. Any formal questions or concerns about the content, text, or information contained within the body of this dictation should be directly addressed to the physician oral surgery assistant for clarification. Impression & Plan Leukocytosis (leucocytosis), CAP (community acquired pneumonia), Liver abscess, Hypomagnesemia Discharge Plan Visit Data Chief Complaint: Diarrhea Stated Complaint: SHAKING, CAN'T GET WARM, DIARRHEA ED Provider: Anish Farrell ED Midlevel Provider: Aminah Donald Discharge Problem: Leukocytosis (leucocytosis), CAP (community acquired pneumonia), Liver abscess, Hypomagnesemia Patient Disposition: Admitted As Inpatient Condition: Fair Forms Stand Alone Forms: [facility] Prescriptions Prescriptions: No Action ipratropium-albuterol 0.5 mg-3 mg(2.5 mg base)/3 mL solution for nebulization 3 ml inhalation BID PRN (Reason: shortness of breath or wheezing) Qty: 15 1RF Rx Instructions: INHALE 3 ML INHALATION TWICE A DAY NEEDED FOR SHORTNESS OF BREATH OR WHEEZING benazepril 20 mg tablet 40 mg PO QPM Qty: 180 3RF methimazole 5 mg tablet 5 mg PO DAILYBB Qty: 90 1RF Trelegy Ellipta 100-62.5-25 mcg blister with device 1 inh inhalation DAILY Qty: 60 2RF sucralfate [Carafate] 1 gram tablet 1 g PO BID Qty: 180 3RF Rx Instructions: mix one tablet with 15mls of water to make slurry then drink twice a day. Eliquis 2.5 mg tablet 2.5 mg PO BID 90 Days Qty: 180 3RF diltiazem HCl 180 mg capsule,extended release 24 hr 180 mg PO DAILY atorvastatin 10 mg tablet 10 mg PO DAILY albuterol sulfate [Ventolin HFA] 90 mcg/actuation HFA aerosol inhaler 2 puff INHALATION QID PRN (Reason: Shortness Of Breath Or Wheezing) Qty: 8.5 1RF aspirin 81 mg tablet,delayed release (DR/EC) 81 mg PO DAILY latanoprost [Xalatan] 0.005 % drops 1 drp OPB HS pantoprazole 40 mg tablet,delayed release (DR/EC) 40 mg PO BID Rx Instructions: TAKE 1 TABLET BY MOUTH TWICE A DAY Referrals Referrals: Carlton Mendez III, CRNP [Primary Care Provider] - Discharge Problem: Leukocytosis (leucocytosis) Qualifiers: Leukocytosis type: unspecified Qualified Code(s): D72.829 - Elevated white blood cell count, unspecified CAP (community acquired pneumonia) Qualifiers: Laterality: unspecified laterality Qualified Code(s): J18.9 - Pneumonia, unspecified organism
[2023-04-14] MEDS ORDERED: VANCOMYCIN HCL 1,000 MG in SODIUM CHLORIDE 0.9% 500 ML IV ONE (22:30)
[2023-04-14] MEDS ORDERED: PIPERACILLIN/TAZOBACTAM 4.5 GM/100 ML BAG IV ONE (22:30)
[2023-04-14] MEDS ORDERED: VANCOMYCIN CONSULT ACTIVE PRN (22:30)
[2023-04-14 22:31] LABS: Hematocrit (blood only) 31.7 % (37.0-47.0); Hemoglobin 9.7 g/dl (12.0-16.0); Mean Corpuscular Hemoglobin 26.8 pg (25.0-34.0); Mean Corpuscular Hgb Conc 30.6 g/dL (32.0-36.0); Mean Corpuscular Volume 87.6 fL (80.0-100.0); Mean Platelet Volume 9.5 fL (9.4-12.4); Platelet Count 360 K/uL (130-400); RDW Coefficient of Variation 20.1 % (11.5-14.5); RDW Standard Deviation 63.8 fL (36.4-46.3); Red Blood Count 3.62 M/uL (4.20-5.40); White Blood Count 35.82 K/ul (4.8-10.8)
[2023-04-14 22:44] LABS: Anisocytosis Present; Basophils # (auto) 0.13 K/uL (0.00-0.20); Basophils % (auto) 0.4 %; Eosinophils # (auto) 0.18 K/uL (0.00-0.50); Eosinophils % (auto) 0.5 %; Immature Granulocytes # (auto) 0.27 K/uL (0.01-0.20); Immature Granulocytes % (auto) 0.8 %; Lymphocytes # (auto) 1.02 K/uL (1.20-3.40); Lymphocytes % (auto) 2.8 %; Monocytes # (auto) 3.18 K/uL (0.11-0.59); Monocytes % (auto) 8.9 %; Neutrophils # (auto) 31.04 K/uL (1.40-6.50); Neutrophils % (auto) 86.6 %
[2023-04-14 22:45] LABS: Albumin Level 3.5 gm/dl (3.4-5.0); BUN Creatinine Ratio 19.4 (10-20); Bilirubin Direct 0.1 mg/dl (0-0.2); Bilirubin,Total 0.4 mg/dl (0.2-1.0); Calcium 8.8 mg/dl (8.6-10.3); Creatinine Clr Calc Pharmacy 51.1 ml/min; Est GFR (Non-African American) 84.6 ml/min; Magnesium 1.6 mg/dl (1.7-2.4); Potassium 3.6 mmol/L (3.5-5.1); Total Protein 6.9 gm/dl (6.0-8.3)
[2023-04-14 22:52] LABS: Troponin I High Sensitivity 14.5 pg/ml (0-14)
[2023-04-14 23:02] LABS: Thyroid Stimulating Hormone 4.07 uIu/ml (0.300-4.500)
[2023-04-14] MEDS ORDERED: SODIUM CHLORIDE 0.9% 1,000 ML IV ONE (23:08)
[2023-04-14 23:21] LABS: Adenovirus PCR Not Detected (NotDetected); Bordetella parapertussis PCR Not Detected (NotDetected); Bordetella pertussis PCR Not Detected (NotDetected); Chlamydia pneumoniae PCR Not Detected (NotDetected); Coronavirus 229E PCR Not Detected (NotDetected); Coronavirus CoV-2 (COVID19)PCR Not Detected (NotDetected); Coronavirus HKU1 PCR Not Detected (NotDetected); Coronavirus NL63 PCR Not Detected (NotDetected); Coronavirus OC43PCR Not Detected (NotDetected); Human Metapneumovirus PCR Not Detected (NotDetected); Influenza A PCR Not Detected (NotDetected); Influenza B PCR Not Detected (NotDetected); Mycoplasma pneumoniae PCR Not Detected (NotDetected); Parainfluenza Virus 1 PCR Not Detected (NotDetected); Parainfluenza Virus 2 PCR Not Detected (NotDetected); Parainfluenza Virus 3 PCR Not Detected (NotDetected); Parainfluenza Virus 4 PCR Not Detected (NotDetected); Respiratory Syncytial VirusPCR Not Detected (NotDetected); Rhinovirus/Enterovirus PCR Not Detected (NotDetected)
[2023-04-15] MEDS ORDERED: OPTIRAY 320 125ml IV ONE (00:09)
--- NOTE | 2023-04-15 00:43 | Emergency Department Note ---
ED Visit Note Staff note: I have reviewed the Patients chart and have discussed this case with my PA. I generally agree with the ED note and findings. .
--- NOTE | 2023-04-15 01:07 | History & Physical Report ---
Date of Service April 15, 2023 Assessment & Plan (1) Acute gastroenteritis: Plan: Patient presents to the hospital with nausea vomiting and diarrhea of 1 day duration Most likely infectious, WBC 35,000 CT scan of the abdomen pelvis obtained official read pending Stool studies have been obtained, will rule out C. difficile Continue IV normal saline 100 cc/h (2) Liver lesion: Plan: On previous CT studies, patient is known to have some cystic lesions on the liver Repeat CT scan has been obtained, official read pending (3) Multiple pulmonary nodules determined by computed tomography of lung: Plan: Multiple lung nodules Follows up with pulmonology (4) Chronic obstructive pulmonary disease: Plan: Patient has a history of COPD however not in exacerbation Continue home medications DuoNebs as needed (5) Atrial fibrillation: Plan: Rate is under good control Continue diltiazem and apixaban (6) Chronic renal failure (CRF), stage 3b: Plan: Avoid nephrotoxic's (7) Hypertension: Plan: Blood pressures under good control Continue home medications (8) Toxic multinodular goiter: Plan: On methimazole at home, continue (9) SMAS (superior mesenteric artery syndrome): Plan Admit to [facility] Full code DVT prophylaxis apixaban History of Present Illness Chief Complaint: Diarrhea Primary Care Provider: Carlton Mendez III, LUIZ This is an 83-year-old female with a history of atrial fibrillation on anticoagulation, hypertension, COPD who presents to the hospital today with complaints of diarrhea nausea fever and generalized weakness of 1 day duration. Patient states she was in her usual state of health until yesterday when she developed profuse diarrhea with up to 7-8 episodes a day associated with chills and generalized weakness. She denies eating anything unusual and denies expo sure to any person with acute diarrhea. He here in the emergency department WBC was 35,000 BMP was within normal limits. CT scan of the abdomen pelvis was done official read is pending. Stool studies have been obtained she has been empirically started on IV antibiotics and will be admitted to the hospital further management. Allergies Allergy/AdvReac Type Severity Reaction Status Date / Time No Known Drug Allergies Allergy Verified 04/11/23 14:49 adhesive tape AdvReac Intermediate PULLS SKIN Verified 04/11/23 14:49 OFF Home Medications Medication Instructions Recorded Confirmed Type latanoprost 0.005 % eye drops 1 drp OPB HS 11/20/18 04/14/23 History (Xalatan) ipratropium 0.5 mg-albuterol 3 mg 3 ml inhalation BID PRN shortness 08/24/21 04/14/23 Rx (2.5 mg base)/3 mL nebulization of breath or wheezing #15 mL soln albuterol sulfate 90 mcg/actuation 2 puff inhalation QID PRN 02/22/22 04/14/23 Rx aerosol inhaler (Ventolin HFA) Shortness Of Breath Or Wheezing #8.5 grams benazepril 20 mg tablet 40 mg (2 x 20 mg) PO QPM #180 tabs 04/25/22 04/14/23 Rx apixaban 2.5 mg tablet (Eliquis) 2.5 mg PO BID 90 days #180 tabs 08/16/22 04/14/23 Rx methimazole 5 mg tablet 5 mg PO DAILYBB #90 tabs 01/03/23 04/14/23 Rx aspirin 81 mg tablet,delayed 81 mg PO DAILY 02/06/23 04/14/23 History release atorvastatin 10 mg tablet 10 mg PO DAILY 03/01/23 04/14/23 History fluticasone fur. 100 mcg-umeclid 1 inh inhalation DAILY #60 ea 03/08/23 04/14/23 Rx 62.5 mcg-vilant 25 mcg inhalat.powder (Trelegy Ellipta) sucralfate 1 gram tablet (Carafate) 1 g PO BID #180 tabs 03/26/23 04/14/23 Rx diltiazem HCl 180 mg capsule,24 180 mg PO DAILY 04/11/23 04/14/23 History hr,extended release pantoprazole 40 mg tablet,delayed 40 mg PO BID 04/14/23 04/14/23 History release Past Med/Surg History Medical History Osteoporosis Pleural effusion due to congestive heart failure Liver lesion Multiple pulmonary nodules determined by computed tomography of lung Chronic obstructive pulmonary disease TIA (transient ischemic attack) SMAS (superior mesenteric artery syndrome) COHN (dyspnea on exertion) Atrial fibrillation Dx 4-5 years ago; on xarelto; hx cardioversion; follows with Dr. Bi Gunter historian HLD (hyperlipidemia) COPD (chronic obstructive pulmonary disease) Adrenal nodule Pulmonary nodules Vocal cord paralysis, unilateral complete Hyperthyroidism Acid reflux Glaucoma History of uterine cancer dx > 5 years; treated surgically Hypertension Surgical History S/P cholecystectomy History of anesthesia reaction SLOW TO WAKE UP History of esophagogastroduodenoscopy (EGD) History of cataract surgery RT/LEFT History of total abdominal hysterectomy and bilateral salpingo-oophorectomy History of cardioversion History of colonoscopy History of endoscopy Family History Daughter Breast cancer Mother Cancer Uterine cancer Father Heart disease Sister Family history of diabetes mellitus Brother Family history of diabetes mellitus Aunt Family history of diabetes mellitus Aunt Family history of diabetes mellitus Other Family history non-contributory Hypertension No family history of adverse response to anesthesia Denies family history of Colon cancer Ovarian cancer Prostate cancer Myocardial infarction Social History Smoking Status: Former smoker Tobacco Type: Cigarettes Age Started Using Tobacco: 18; Age Quit Using Tobacco: 52; packs per day: 1; Second Hand Exposure: No; Do You Dip or Chew Tobacco: No; Hx Alcohol Use: No Hx Substance Use: No Preferred Language: Pakistani Communication Ability: Effective Visual Impairment: Partially Limited Hearing Ability: Normal Qa Software Tester Required: No Beliefs That Will Affect Care: None marital status: / Current Living Situation: Alone current occupational status: retired How many Children do You have: 3 Feels Safe at Home: Yes Childhood Exposure to Second-Hand Smoke: Yes Diet: regular Diet Comment: regular caffeine: Yes during the past year weight has: remained stable Dental Care, Regularly: No Physical Activity Frequency: 3-4 Times per Week Seatbelt Use: always Sunscreen Use: No Assistive Devices: Glasses Review of Systems Review of Systems: All systems reviewed are negative, apart from the ones contained in the history. Physical Exam Physical Exam: The patient is awake, alert and oriented 3, well developed and well nourished, normocephalic and atraumatic, lying in bed and in no acute distress. HEENT--PERRL, EOMI, mucous membranes and oropharynx mildly dry Neck--supple. No JVD. No bruits. Thyroid normal, trachea midline, no adenop athy. Heart--normal S1 and S2. No murmurs, rubs or gallops. Lungs--clear bilaterally, no respiratory distress, no accessory muscle use. Abdomen--normal bowel sounds and soft. Mild epigastric and left sided abdominal pain Extremities--no cyanosis or clubbing. No edema. Dermatologic--normal skin turgor, normal color, no abnormal lymph nodes, no rash. Neurologic--cranial nerves II through XII grossly intact. Rheumatologic--normal range of motion. Psychiatric--normal affect. Results & Data Results & Data Vital Signs (Past 12 Hours) Vital Signs Temp Pulse Pulse Resp BP BP Pulse Ox 04/15/23 00:30 96 H 16 122/64 90 04/15/23 00:20 93 H 94 04/15/23 00:11 105 H 18 95 04/15/23 00:10 152/66 H 04/14/23 23:12 93 H 21 93 04/14/23 23:10 91 H 18 91 04/14/23 23:00 99 H 15 128/58 L 92 04/14/23 22:50 89 21 95 04/14/23 22:40 94 H 19 94 04/14/23 22:30 88 22 120/69 91 04/14/23 22:20 98 H 17 94 04/14/23 22:10 118 H 24 93 04/14/23 22:09 115 H 18 126/70 93 04/14/23 22:05 113 H 18 126/70 93 04/14/23 22:05 109 H 04/14/23 21:36 94 04/14/23 21:25 99.3 F 72 16 181/126 H 96 O2 Del Method 04/15/23 00:30 Room Air 04/15/23 00:20 04/15/23 00:11 04/15/23 00:10 04/14/23 23:12 04/14/23 23:10 Room Air 04/14/23 23:00 Room Air 04/14/23 22:50 Room Air 04/14/23 22:40 Room Air 04/14/23 22:30 04/14/23 22:20 Room Air 04/14/23 22:10 Room Air 04/14/23 22:09 Room Air 11/19/23 22:05 Room Air 04/14/23 22:05 04/14/23 21:36 04/14/23 21:25 Room Air PG Care Time/CCT Total # of Minutes Spent Total Time Spent with Patient: Total time spent is greater than 50% in coordination of care (as documented) at patient's floor/unit and/or counseling patient: Coding Level of Care Code 78155 INT INP/OBS CARE 3/75MIN Diagnoses Acute gastroenteritis K52.9 Liver lesion K76.9 Multiple pulmonary nodules determined by computed tomography of lung R91.8 Chronic obstructive pulmonary disease J44.9 Longstanding persistent atrial fibrillation I48.11 Atrial fibrillation type: longstanding persistent Chronic renal failure (CRF), stage 3b N18.32 Essential hypertension I10 Hypertension type: essential hypertension Toxic multinodular goiter E05.20 SMAS (superior mesenteric artery syndrome) K55.1 Time Spent (min) 75 (5) Atrial fibrillation Atrial fibrillation type: longstanding persistent Qualified Code(s): I48.11 - Longstanding persistent atrial fibrillation (7) Hypertension Hypertension type: essential hypertension Qualified Code(s): I10 - Essential (primary) hypertension
[2023-04-15 01:10] LABS: Appearance Urine Clear (Clear); Bilirubin Urine Negative (Negative); Blood Urine Negative (Negative); Color Urine Yellow; Glucose Urine UA Negative (Negative); Ketones Urine Negative (Negative); Leukocyte Esterase Urine Negative (Negative); Nitrite Urine Negative (Negative); Protein Urine Negative (Negative); Specific Gravity Urine 1.014 (1.000-1.030); Urobilinogen Urine Negative (Negative); pH Urine 5.5 (4.5-7.5)
--- NOTE | 2023-04-15 01:37 | CT Scan Report ---
Exam(s): CTA CHEST EXAM: CT Angiography Chest With Intravenous Contrast CLINICAL HISTORY: Reason for exam: PE, sepsis. TECHNIQUE: Axial computed tomographic angiography images of the chest with intravenous contrast. Automated exposure control was utilized for the study. A dose lowering technique was utilized adhering to the principles of ALARA. MIP reconstructed images were created and reviewed. COMPARISON: No relevant prior studies available. FINDINGS: Pulmonary arteries: Unremarkable. No CT evidence of pulmonary embolism. Aorta: No acute findings. No thoracic aortic aneurysm. 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 Lungs: Centrilobular emphysema. No mass. No consolidation. Pleural space: Tiny left pleural effusion. Bronchial wall thickening and opacification of the left lower lobe bronchials with patchy pulmonary opacities concerning for an infectious etiology. No pneumothorax. Heart: Unremarkable. No cardiomegaly. No significant pericardial effusion. No evidence of RV dysfunction. Bones/joints: No acute fracture. No dislocation. Soft tissues: Unremarkable. Lymph nodes: Unremarkable. No enlarged lymph nodes. IMPRESSION: 1. No CT evidence of pulmonary embolism. 2. Bronchial wall thickening and opacification of the left lower lobe bronchials with patchy pulmonary opacities concerning for an infectious etiology. Electronically signed by: Alfonso Vasquez M.D. 04/15/23 01:36 AM
--- NOTE | 2023-04-15 01:45 | CT Scan Report ---
Exam(s): CT ABDOMEN + PELVIS With Contrast IV Amt: 116ML OPTIRAY 320 EXAM: CT Abdomen and Pelvis With Intravenous Contrast CLINICAL HISTORY: Reason for exam: mid abd pain, f/c, N/D. TECHNIQUE: Axial computed tomography images of the abdomen and pelvis with intravenous contrast. Automated exposure control was utilized for the study. A dose lowering technique was utilized adhering to the principles of ALARA. CONTRAST: Patient received 116ML OPTIRAY 320 of IV contrast COMPARISON: 06/02/2022 FINDINGS: Lung bases: Unremarkable. No mass. No consolidation. ABDOMEN: Liver: Markedly abnormal liver with approximately 15 new cystic lesions in bilateral lobes of the liver with the largest measuring up to 2.2 cm in the right lobe with surrounding edema. Findings are concerning for intrahepatic abscesses. The underlying liver parenchyma is also diffusely abnormal with a striated appearance to the liver parenchyma concerning for diffuse edema. No evidence of biliary dilatation. Gallbladder and bile ducts: Gallbladder has been removed. Pancreas: Unremarkable. No mass. No ductal dilation. Spleen: Unremarkable. No splenomegaly. Adrenals: 1.5 cm left adrenal nodules unchanged from prior exam. Kidneys and ureters: Numerous simple bilateral renal cysts measuring up to 1.6 cm. No further workup is required. No hydronephrosis. Stomach and bowel: Unremarkable. No obstruction. No mucosal thickening. PELVIS: Appendix: No findings to suggest acute appendicitis. Bladder: Unremarkable. No mass. Reproductive: Uterus has been removed. ABDOMEN and PELVIS: Intraperitoneal space: Unremarkable. No free air. No significant fluid collection. Bones/joints: No acute fracture. No dislocation. Soft tissues: Unremarkable. Vasculature: Unremarkable. No abdominal aortic aneurysm. Lymph nodes: Unremarkable. No enlarged lymph nodes. IMPRESSION: Markedly abnormal liver with approximately 15 new cystic lesions in bilateral lobes of the liver with the largest measuring up to 2.2 cm in the right lobe with surrounding edema. Findings are concerning for intrahepatic abscesses. The underlying liver parenchyma is also diffusely abnormal with a striated appearance to the liver parenchyma concerning for diffuse edema. No evidence of biliary dilatation. Electronically signed by: Alfonso Vasquez M.D. 04/15/23 01:43 AM
[2023-04-15] MEDS ORDERED: ALBUT/IPRATROP 3MG/0.5MG NEB 3 ML VIAL INH PRN (03:11)
[2023-04-15] MEDS ORDERED: ALBUTEROL HFA 8 GM INHALER INH PRN (03:11)
[2023-04-15] MEDS ORDERED: ONDANSETRON INJ 2 MG/ML 2 ML VIAL IV PRN (03:11)
[2023-04-15] MEDS: MAGNESIUM SULFATE / D5W 1 GM/100 ML BAG IV SCH ×4 (03:15→11:31)
[2023-04-15] MEDS ORDERED: CIPROFLOXACIN / D5W 200 MG/100 ML BAG IV SCH (04:00)
[2023-04-15] MEDS: SODIUM CHLORIDE 0.9% 1,000 ML IV SCH ×3 (05:14→23:09)
[2023-04-15] MEDS: metroNIDAZOLE 500 MG/100 ML BAG IV SCH ×3 (05:15→22:00)
[2023-04-15] MEDS: methIMAzole 5 MG TABLET PO SCH (06:17)
[2023-04-15 07:56] LABS: Hematocrit (blood only) 27.3 % (37.0-47.0); Hemoglobin 8.2 g/dl (12.0-16.0); Mean Corpuscular Hemoglobin 26.5 pg (25.0-34.0); Mean Corpuscular Volume 88.1 fL (80.0-100.0); Mean Platelet Volume 9.7 fL (9.4-12.4); Platelet Count 304 K/uL (130-400); RDW Coefficient of Variation 20.3 % (11.5-14.5); RDW Standard Deviation 64.2 fL (36.4-46.3); White Blood Count 22.74 K/ul (4.8-10.8)
[2023-04-15] MEDS: UMECLIDINIUM/VILANTEROL 62.5/25MCG 7 PUFFS/INHALER INH SCH (08:05)
[2023-04-15 08:06] LABS: Adenovirus F 40/41 PCR Not Detected (NotDetected); Astrovirus PCR Not Detected (NotDetected); Campylobacter PCR Not Detected (NotDetected); Cryptosporidium PCR Not Detected (NotDetected); Cyclospora cayetanensis PCR Not Detected (NotDetected); Entamoeba histolytica PCR Not Detected (NotDetected); Enteroaggregative E.coli(EAEC) Not Detected (NotDetected); Enteropathogenic E.coli (EPEC) Not Detected (NotDetected); Enterotoxigenic E.coli (ETEC) Not Detected (NotDetected); Giardia lamblia PCR Not Detected (NotDetected); Norovirus GI/GII PCR Not Detected (NotDetected); Plesiomonas shigelloides PCR Not Detected (NotDetected); Rotavirus A PCR Not Detected (NotDetected); Salmonella PCR Not Detected (NotDetected); Sapovirus PCR Not Detected (NotDetected); Shiga-like Toxin E.coli (STEC) Not Detected (NotDetected); Shigella/Enteroinvasive E.coli Not Detected (NotDetected); Vibrio cholerae PCR Not Detected (NotDetected); Vibrio species PCR Not Detected (NotDetected); Yersinia enterocolitica PCR Not Detected (NotDetected)
[2023-04-15] MEDS: SUCRALFATE 1 GM TAB PO SCH ×2 (08:06→19:58)
[2023-04-15] MEDS: APIXABAN 2.5 MG TAB PO SCH ×2 (08:06→19:59)
[2023-04-15] MEDS: ASPIRIN 81 MG ECTAB PO SCH (08:06)
[2023-04-15] MEDS: PANTOprazole 40 MG TAB PO SCH ×2 (08:06→19:56)
[2023-04-15] MEDS: ATORVASTATIN 10 MG TAB PO SCH (08:06)
[2023-04-15] MEDS: FLUTICASONE FUROATE 100MCG 14 PUFFS/INHALER INH SCH (08:07)
[2023-04-15] MEDS: dilTIAZem HCL 180 MG CAPCR PO SCH (08:07)
--- NOTE | 2023-04-15 08:09 | XRay Report ---
SINGLE VIEW CHEST CLINICAL HISTORY: Sepsis. FINDINGS: An AP, portable, upright chest radiograph is compared to study dated 03/10/2023 and correla paz with chest CT scans dated 01/21/2023 and 04/15/2023. The examination is degraded by portable techn ique and apical lordotic positioning. The heart is enlarged noting atherosclerotic calcification of t he thoracic aorta. The pulmonary vasculature is noncongested. Emphysema and chronic interstitial thic kening is similar to previous. A 1.1 cm irregular opacity is suggested in the right upper lobe. There is bibasilar scarring/atelectasis. No airspace consolidation or large pleural effusion is identified . No pneumothorax is seen. The skeletal structures are osteopenic. The bony thorax is grossly intact. IMPRESSION: 1. Cardiomegaly and emphysema with no acute cardiopulmonary abnormality identified. 2. A 1.1 cm irregular opacity projects over the right upper lobe. A second 1.6 cm left lower lobe spi culated opacity seen on today's chest CT is not visualized by x-ray. Although these may be on an infe ctious/inflammatory basis, a follow-up chest CT in 2-3 months time is recommended for reassessment. ACT 112: Positive. There are findings on this exam that require communication between the performing entity and the patient following Patient Test Result Information Act ([place] Act 112) guidelines. Electronically signed by: James Coy M.D. 04/15/2023 8:06 AM
[2023-04-15] MEDS ORDERED: CIPROFLOXACIN / D5W 200 MG/100 ML BAG IV ONE (08:30)
[2023-04-15 08:40] LABS: Calcium 7.7 mg/dl (8.6-10.3); Potassium 3.6 mmol/L (3.5-5.1)
[2023-04-15 08:46] LABS: BUN Creatinine Ratio 20.4 (10-20); Creatinine Clr Calc Pharmacy 64.7 ml/min; Est GFR (African American) 105.9 ml/min; Est GFR (Non-African American) 91.4 ml/min
[2023-04-15] MEDS ORDERED: NON-FORMULARY MEDICATION (Fluticasone-Umeclidin-Vilanter [Trelegy Ellipta] 100-62.5-25 mcg INH SCH (09:00)
--- NOTE | 2023-04-15 12:38 | Hospitalist Progress Note ---
Date of Service April 15, 2023 Assessment & Plan (1) Acute gastroenteritis: Plan: Suspected viral etiology. IV fluids ordered and antiemetics. Stool BioFire negative. Multiple liver cysts noted however. Radiology raised the question of liver abscesses. Infectious disease consultation requested along with blood culture. Continue intravenous Cipro and Flagyl for now. (2) Liver lesion: Plan: Multiple cysts observed. White count is markedly elevated and radiology raised the question of multiple liver abscesses. Continue intravenous Cipro and Flagyl. Infectious disease consultation requested and pending. No recent travel and no recent exposure to contaminated water. (3) Multiple pulmonary nodules determined by computed tomography of lung: Plan: Multiple lung nodules. Follows up with pulmonology (4) Chronic obstructive pulmonary disease: Plan: Stable. Continue current medical management (5) Atrial fibrillation: Plan: Stable. Continue current medical management with diltiazem and apixaban (6) Chronic renal failure (CRF), stage 3b: Plan: Stable. Monitor intake and output. Avoid nephrotoxic medication (7) Hypertension: Plan: Stable. Continue current medical management (8) Toxic multinodular goiter: Plan: Stable. Continue methimazole therapy Plan Hopeful discharge to home soon Admission and Anticipated Discharge Date Admission Date: April 15, 2023 Subjective Alert and oriented. Some nausea associated with watery diarrhea. Stool BioFire is negative. Abdominal CT scan is suggestive of multiple liver abscesses. White count is markedly elevated. She remains on intravenous Cipro and Flagyl. ID consultation requested along with serial labs. Magnesium replacement underway. We will add Metamucil for now to slow frequency of diarrhea stools Review of Systems 2 Review of Systems: Constitutional-no fever or chills ENT-no blurred vision, no double vision, no epistaxis, no sore throat Respiratory-no cough, no wheezing, no shortness of breath Cardiac-no palpitations, no chest pain, no syncope GI-nausea and watery stools. No vomiting. No melena. No hematochezia -no urinary retention, no urinary incontinence, no dysuria, no hematuria Musculoskeletal-no joint pain, no muscle tenderness Skin-no bruising, no rashes, no pruritus Neuro-no isolated weakness, no paresthesia, no weakness Psych-no depression, no anxiety Physical Exam 2 Physical Exam: General-alert and oriented x3, no fevers, no chills HEENT-head atraumatic and normocephalic, pupils equal and reactive to light, extraocular muscles intact Neck-no lymphadenopathy or thyromegaly, trachea midline Chest-clear to auscultation and percussion. No rales wheezing or rhonchi Cardiac-regular rate and rhythm, normal S1 and S2 Abdomen-normal bowel sounds, nontender, no hepatosplenomegaly Extremities-no cyanosis, clubbing, or edema Neuro-cranial nerves II through XII intact, motor and sensory function within normal limits, strength symmetrical, no focal deficits Psych-normal affect, normal mood Results & Data Results & Data Vital Signs (Past 12 Hours) Vital Signs Temp Pulse Pulse Resp BP BP Pulse Ox 04/15/23 07:27 36.6 C 90 18 131/63 96 04/15/23 03:00 36.6 C 96 H 16 132/70 97 04/15/23 02:36 04/15/23 02:30 84 15 99/57 L 93 04/15/23 02:17 97 H O2 Del Method 04/15/23 07:27 Room Air 04/15/23 03:00 Room Air 04/15/23 02:36 Room Air 04/15/23 02:30 Room Air 04/15/23 02:17 Laboratory Results 04/15/23 07:35 04/15/23 07:35 PG Care Time/CCT Total # of Minutes Spent Total Time Spent with Patient: Total time spent is greater than 50% in coordination of care (as documented) at patient's floor/unit and/or counseling patient: Coding Level of Care Code 70561 SUB INP/OBS CARE 3/50MIN Diagnoses Acute gastroenteritis K52.9 Liver lesion K76.9 Multiple pulmonary nodules determined by computed tomography of lung R91.8 Chronic obstructive pulmonary disease J44.9 Longstanding persistent atrial fibrillation I48.11 Atrial fibrillation type: longstanding persistent Chronic renal failure (CRF), stage 3b N18.32 Essential hypertension I10 Hypertension type: essential hypertension Toxic multinodular goiter E05.20 (5) Atrial fibrillation Atrial fibrillation type: longstanding persistent Qualified Code(s): I48.11 - Longstanding persistent atrial fibrillation (7) Hypertension Hypertension type: essential hypertension Qualified Code(s): I10 - Essential (primary) hypertension
[2023-04-15] MEDS: ACETAMINOPHEN 325 MG TAB PO PRN ×2 (12:52→18:58)
[2023-04-15] MEDS: PSYLLIUM or GUAR GUM FIBER POWDER PACKET PO SCH ×2 (12:53→19:58)
[2023-04-15] MEDS ORDERED: MoRPHine SULFATE 2 MG/ML CARP IV STA (14:36)
--- NOTE | 2023-04-15 16:49 | Infectious Disease Consult ---
Date of Consultation April 15, 2023 Assessment & Plan (1) Liver abscess: (2) Acute gastroenteritis: (3) Aspiration pneumonitis: (4) Liver lesion: (5) Diarrhea: Plan Impression: Lakeshia Junior is an 83-year-old woman with history of Afib on anticoagulation, HTN, COPD who presents to [facility] on 04/15/23 with diarrhea, nausea, fever, and generalized weakness 1 day, found on CT A/P to have multiple possible liver abscesses. ID is consulted for evaluation of possible liver abscesses. With 15 new cystic lesions in the bilateral lobes of the liver up to 2.2 cm, with radiographic appearance c/f hepatic abscess. Also with abnormal striated appearance of the liver parenchyma. No biliary dilatation. Broad infectious ddx for liver abscesses. Patient without travel outside the country, no animal exposure, no well water, no known exposure to TB. Did report eating beef liver (cooked, from grocery store) for the first time in a while prior to her symptoms starting, which was accompanied by acute diarrheal illness, thus wonder about possible foodborne/GI pathogens. Most suspect bacterial/pyogenic liver abscess, suspect GI source, potentially from GI translocation, given acute febrile and diarrheal illness and leukocytosis. Thus far appears to be improving while on antibiotics. Also considered hepatobiliary source although no jennifer-dil on CT. Would obtain stool PCR panel (or cx if unavailable). Would also consider obtaining RUQUS. Can also discuss with IR to see if lesions would be amenable for drainage, and would send infectious studies as below. Less c/w parasitic infection such as Entamoeba or Echinococcus. Would expect solitary lesion and less acute presentation with Entamoeba, radiographic appearance not suggestive of Echinococcal cyst and without animal exposure risk factors. Laura can cause liver abscesses as well, though tentatively improving without antifungals. Of note, CT chest with bronchial wall thickening and LLL opacification, but without significant respiratory symptoms. May be aspiration in the setting of n /v. Would continue to monitor Will recommend to cover with ceftriaxone and metronidazole. ID Problem List: 1.Possible hepatic abscess 2.Leukocytosis 3.Diarrhea 4.Possible aspiration pneumonitis. Recommendations: - Start ceftriaxone 2g IV Q24H, can stop ciprofloxacin - Continue metronidazole 500 mg IV Q8H - Obtain RUQUS - Obtain stool PCR panel (or cx if unavailable) - Discuss with IR to see if lesions would be amenable to drainage. If so, would send for bacterial & fungal Gram stain & cx, AFB cx, path. - F/u BCx 04/14 ID will continue to follow. Yashira Reilly MD, MHS Infectious Diseases [facility]/ID Connect ID Connect direct line: [phone] Consultation Information Consultation was provided via telemedicine using two-way real-time interactive telecommunication between the patient and the telemedicine provider. For the duration of the visit, the provider was performing the assessment from a different facility than the patient. This includesuse of bluetooth stethoscope forauscultationperformed by the telepresenter that the telemedicine provider can hear if described in the physical exam. Assistant Plant Control Operator contact information: Please call ID Connect Call Center . (Phone Number For Physician Use Only) After establishing a telemedicine visit, patient was: Patient was verified with two unique identifiers, Patient/authorized rep acknowledged consent and under standing and Gave permission to continue telehealth session Time Spent with Patient: Initial => 75 min History of Present Illness Reason for Consultation: Possible liver abscesses Attending Physician: Eitan Alicia MD History of Present Illness Lakeshia Junior is an 83-year-old woman with history of Afib on anticoagulation, HTN, COPD who presents to [facility] on 04/15/23 with diarrhea, nausea, fever, and generalized weakness 1 day, found on CT A/P to have multiple possible liver abscesses. ID is consulted for evaluation of possible liver abscesses. The patient reports she was in her usual state of health until 1 day TELEVISION PRESENTER, when she developed profuse diarrhea with up to 7-8 episodes a day associated with chills and generalized weakness. She also reported back pain and drenching sweats. She also reports that she ate beef liver for the first time in a while a few days TELEVISION PRESENTER, which was purchased from a grocery store and cooked prior to eating. Lives in [place] by herself. No pets/animals. No exposure to wild/farm animals or birds. No well water. Drinks only bottled water. No travel outside the country. 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 No exposure to TB that she is aware of. No consumption of raw fish/meat. No hiking/fishing/hunting. Upon arrival to ED, afebrile, WBC 35. Started on vancomycin, pip-tazo, and metronidazole. CT A/P showing numerous liver abscesses. CT chest with bronchial wall thickening and LLL opacification. At the time of evaluation, she says she feels better than when she initially presented. Allergies Allergy/AdvReac Type Severity Reaction Status Date / Time No Known Drug Allergies Allergy Verified 04/11/23 14:49 adhesive tape AdvReac Intermediate PULLS SKIN Verified 04/11/23 14:49 OFF Home Medications Medication Instructions Recorded Confirmed Type latanoprost 0.005 % eye drops 1 drp OPB HS 11/20/18 04/14/23 History (Xalatan) ipratropium 0.5 mg-albuterol 3 mg 3 ml inhalation BID PRN shortness 08/24/21 04/14/23 Rx (2.5 mg base)/3 mL nebulization of breath or wheezing #15 mL soln albuterol sulfate 90 mcg/actuation 2 puff inhalation QID PRN 02/22/22 04/14/23 Rx aerosol inhaler (Ventolin HFA) Shortness Of Breath Or Wheezing #8.5 grams benazepril 20 mg tablet 40 mg (2 x 20 mg) PO QPM #180 tabs 04/25/22 04/14/23 Rx apixaban 2.5 mg tablet (Eliquis) 2.5 mg PO BID 90 days #180 tabs 08/16/22 04/14/23 Rx methimazole 5 mg tablet 5 mg PO DAILYBB #90 tabs 01/03/23 04/14/23 Rx aspirin 81 mg tablet,delayed 81 mg PO DAILY 02/06/23 04/14/23 History release atorvastatin 10 mg tablet 10 mg PO DAILY 03/01/23 04/14/23 History fluticasone fur. 100 mcg-umeclid 1 inh inhalation DAILY #60 ea 03/08/23 04/14/23 Rx 62.5 mcg-vilant 25 mcg inhalat.powder (Trelegy Ellipta) sucralfate 1 gram tablet (Carafate) 1 g PO BID #180 tabs 03/26/23 04/14/23 Rx diltiazem HCl 180 mg capsule,24 180 mg PO DAILY 04/11/23 04/14/23 History hr,extended release pantoprazole 40 mg tablet,delayed 40 mg PO BID 04/14/23 04/14/23 History release Patient History Medical History Osteoporosis Pleural effusion due to congestive heart failure Liver lesion Multiple pulmonary nodules determined by computed tomography of lung Chronic obstructive pulmonary disease TIA (transient ischemic attack) SMAS (superior mesenteric artery syndrome) COHN (dyspnea on exertion) Atrial fibrillation Dx 4-5 years ago; on xarelto; hx cardioversion; follows with Dr. Bi Gunter historian HLD (hyperlipidemia) COPD (chronic obstructive pulmonary disease) Adrenal nodule Pulmonary nodules Vocal cord paralysis, unilateral complete Hyperthyroidism Acid reflux Glaucoma History of uterine cancer dx > 5 years; treated surgically Hypertension Surgical History S/P cholecystectomy History of anesthesia reaction SLOW TO WAKE UP History of esophagogastroduodenoscopy (EGD) History of cataract surgery RT/LEFT History of total abdominal hysterectomy and bilateral salpingo-oophorectomy History of cardioversion History of colonoscopy History of endoscopy Family History Daughter Breast cancer Mother Cancer Uterine cancer Father Heart disease Sister Family history of diabetes mellitus Brother Family history of diabetes mellitus Aunt Family history of diabetes mellitus Aunt Family history of diabetes mellitus Other Family history non-contributory Hypertension No family history of adverse response to anesthesia Denies family history of Colon cancer Ovarian cancer Prostate cancer Myocardial infarction Social History Smoking Status: Former smoker Tobacco Type: Cigarettes Age Started Using Tobacco: 18; Age Quit Using Tobacco: 52; packs per day: 1; Second Hand Exposure: No; Do You Dip or Chew Tobacco: No; Hx Alcohol Use: No Hx Substance Use: No Preferred Language: French Communication Ability: Effective Visual Impairment: Partially Limited Hearing Ability: Normal Certified Composites Technician Required: No Beliefs That Will Affect Care: None marital status: / Current Living Situation: Alone current occupational status: retired How many Children do You have: 3 Feels Safe at Home: Yes Childhood Exposure to Second-Hand Smoke: Yes Diet: regular Diet Comment: regular caffeine: Yes during the past year weight has: remained stable Dental Care, Regularly: No Physical Activity Frequency: 3-4 Times per Week Seatbelt Use: always Sunscreen Use: No Assistive Devices: Hospital Bed and Walker Review of System As per HPI Physical Exam Physical Exam: Exam obtained with aid of in-person telepresenter. General: Well-appearing, no acute distress HEENT: Conjunctivae non-injected, sclerae anicteric, MMM, OP clear. Neck: No LAD CV: RRR, normal S1/S2; no murmurs, rubs, or gallops. Resp: CTAB; no wheezes, rales, or rhonchi. Respirations nonlabored. Abd: Soft, nondistended. +RUQ tenderness. Back: No tenderness to palpation along spine Ext: Warm and well-perfused, no edema. No joint warmth or effusions noted. Skin: Scattered ecchymoses on upper and lower extremities, as well as face. Results & Data Vital Signs (Past 12 Hours) Vital Signs Temp Pulse Resp BP Pulse Ox O2 Del Method 04/15/23 14:56 36.5 C 66 18 91/49 L 98 Room Air 04/15/23 07:27 36.6 C 90 18 131/63 96 Room Air Diagnostic Findings Diagnostics: 04/14 CTA chest FINDINGS: Pulmonary arteries: Unremarkable. No CT evidence of pulmonary embolism. Aorta: No acute findings. No thoracic aortic aneurysm. 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 Lungs: Centrilobular emphysema. No mass. No consolidation. Pleural space: Tiny left pleural effusion. Bronchial wall thickening and opacification of the left lower lobe bronchials with patchy pulmonary opacities concerning for an infectious etiology. No pneumothorax. Heart: Unremarkable. No cardiomegaly. No significant pericardial effusion. No evidence of RV dysfunction. Bones/joints: No acute fracture. No dislocation. Soft tissues: Unremarkable. Lymph nodes: Unremarkable. No enlarged lymph nodes. 1. No CT evidence of pulmonary embolism. 2. Bronchial wall thickening and opacification of the left lower lobe bronchials with patchy pulmonary opacities concerning for an infectious etiology. 04/14 CT A/P ABDOMEN: Liver: Markedly abnormal liver with approximately 15 new cystic lesions in bilateral lobes of the liver with the largest measuring up to 2.2 cm in the right lobe with surrounding edema. Findings are concerning for intrahepatic abscesses. The underlying liver parenchyma is also diffusely abnormal with a striated appearance to the liver parenchyma concerning for diffuse edema. No evidence of biliary dilatation. Gallbladder and bile ducts: Gallbladder has been removed. Pancreas: Unremarkable. No mass. No ductal dilation. Spleen: Unremarkable. No splenomegaly. Adrenals: 1.5 cm left adrenal nodules unchanged from prior exam. Kidneys and ureters: Numerous simple bilateral renal cysts measuring up to 1.6 cm. No further workup is required. No hydronephrosis. Stomach and bowel: Unremarkable. No obstruction. No mucosal thickening. IMPRESSION: Markedly abnormal liver with approximately 15 new cystic lesions in bilateral lobes of the liver with the largest measuring up to 2.2 cm in the right lobe with surrounding edema. Findings are concerning for intrahepatic abscesses. The underlying liver parenchyma is also diffusely abnormal with a striated appearance to the liver parenchyma concerning for diffuse edema. No evidence of biliary dilatation. Micro Summary: 04/14 BCx x2: NGTD Prior 12/28/22 UCx: E. faecalis Antibiotic Summary: metronidazole (04/14-p) ciprofloxacin (04/15-p) vancomycin (04/14) pip-tazo (04/14) (5) Diarrhea Diarrhea type: presumed infectious Qualified Code(s): R19.7 - Diarrhea, unspecified
[2023-04-15] MEDS: CIPROFLOXACIN / D5W 400 MG/200 ML BAG IV SCH (19:55)
[2023-04-15] MEDS: LATANOPROST 0.005% OP SOLN 2.5 ML BTL OPB SCH (19:56)
[2023-04-15] MEDS: ENALAPRIL MALEATE 10 MG TAB PO SCH (20:00)
[2023-04-16] MEDS: metroNIDAZOLE 500 MG/100 ML BAG IV SCH ×3 (05:14→22:19)
[2023-04-16] MEDS: methIMAzole 5 MG TABLET PO SCH (06:18)
[2023-04-16] MEDS: SUCRALFATE 1 GM TAB PO SCH ×2 (07:50→19:42)
[2023-04-16] MEDS: PANTOprazole 40 MG TAB PO SCH ×2 (07:50→19:42)
[2023-04-16] MEDS: FLUTICASONE FUROATE 100MCG 14 PUFFS/INHALER INH SCH (07:50)
[2023-04-16] MEDS: UMECLIDINIUM/VILANTEROL 62.5/25MCG 7 PUFFS/INHALER INH SCH (07:50)
[2023-04-16] MEDS: PSYLLIUM or GUAR GUM FIBER POWDER PACKET PO SCH ×2 (07:51→19:42)
[2023-04-16] MEDS: APIXABAN 2.5 MG TAB PO SCH ×2 (07:51→19:42)
[2023-04-16] MEDS: dilTIAZem HCL 180 MG CAPCR PO SCH (07:51)
[2023-04-16] MEDS: ASPIRIN 81 MG ECTAB PO SCH (07:51)
[2023-04-16] MEDS: ATORVASTATIN 10 MG TAB PO SCH (07:51)
[2023-04-16] MEDS: CIPROFLOXACIN / D5W 400 MG/200 ML BAG IV SCH ×2 (07:52→19:38)
[2023-04-16 09:39] LABS: Hemoglobin 8.1 g/dl (12.0-16.0); Mean Corpuscular Hemoglobin 26.1 pg (25.0-34.0); Mean Corpuscular Hgb Conc 28.9 g/dL (32.0-36.0); Mean Corpuscular Volume 90.3 fL (80.0-100.0); Mean Platelet Volume 9.8 fL (9.4-12.4); Platelet Count 304 K/uL (130-400); RDW Coefficient of Variation 20.2 % (11.5-14.5); RDW Standard Deviation 66.6 fL (36.4-46.3); White Blood Count 25.85 K/ul (4.8-10.8)
[2023-04-16] MEDS: ACETAMINOPHEN 325 MG TAB PO PRN ×2 (10:55→15:25)
[2023-04-16] MEDS: SODIUM CHLORIDE 0.9% 1,000 ML IV SCH (10:56)
--- NOTE | 2023-04-16 13:06 | Hospitalist Progress Note ---
Date of Service April 16, 2023 Assessment & Plan (1) Acute gastroenteritis: Plan: Suspected viral etiology. IV fluids ordered and antiemetics. Stool BioFire negative. Multiple liver cysts noted however. Radiology raised the question of liver abscesses. Infectious disease consultation requested along with blood culture. Continue intravenous Cipro and Flagyl for now. (2) Liver lesion: Plan: Multiple cysts observed. White count is markedly elevated and radiology raised the question of multiple liver abscesses. Continue intravenous Cipro and Flagyl. Infectious disease consultation requested and pending. No recent travel and no recent exposure to contaminated water. I seriously doubt if there liver abscesses I think it is liver cysts as noted in previous imaging. Will repeat CT abdomen and pelvis Consult IR to biopsy the cyst and sent for cultures (3) Multiple pulmonary nodules determined by computed tomography of lung: Plan: Multiple lung nodules. Follows up with pulmonology (4) Chronic obstructive pulmonary disease: Plan: Stable. Continue current medical management (5) Atrial fibrillation: Plan: Stable. Continue current medical management with diltiazem and apixaban (6) Chronic renal failure (CRF), stage 3b: Plan: Stable. Monitor intake and output. Avoid nephrotoxic medication (7) Hypertension: Plan: Stable. Continue current medical management (8) Toxic multinodular goiter: Plan: Stable. Continue methimazole therapy Plan Hopeful discharge to home soon Admission and Anticipated Discharge Date Admission Date: April 15, 2023 Subjective Patient seen and examined today, states her diarrhea X episodes have improved only 1 episode of diarrhea today Denies chest pain or shortness of breath. Feels better overall Review of Systems Review of Systems: All systems reviewed are negative, apart from the ones contained in the history. Physical Exam Physical Exam: The patient is awake, alert and oriented 3, well developed and well nourished, normocephalic and atraumatic, lying in bed and in no acute distress. HEENT--PERRL, EOMI, mucous membranes and oropharynx mildly dry Neck--supple. No JVD. No bruits. Thyroid normal, trachea midline, no adenopathy. Heart--normal S1 and S2. No murmurs, rubs or gallops. Lungs--clear bilaterally, no respiratory distress, no accessory muscle use. Abdomen--normal bowel sounds and soft. Mild epigastric and left sided abdominal pain Extremities--no cyanosis or clubbing. No edema. Dermatologic--normal skin turgor, normal color, no abnormal lymph nodes, no rash. Neurologic--cranial nerves II through XII grossly intact. Rheumatologic--normal range of motion. Psychiatric--normal affect. Results & Data Results & Data Vital Signs (Past 12 Hours) Vital Signs Temp Pulse Resp BP Pulse Ox O2 Del Method 04/16/23 07:37 98.1 F 85 18 130/68 94 Room Air PG Care Time/CCT Total # of Minutes Spent Total Time Spent with Patient: Total time spent is greater than 50% in coordination of care (as documented) at patient's floor/unit and/or counseling patient: Coding Level of Care Code 78009 SUB INP/OBS CARE 235MIN Diagnoses Acute gastroenteritis K52.9 Liver lesion K76.9 Multiple pulmonary nodules determined by computed tomography of lung R91.8 Chronic obstructive pulmonary disease J44.9 Longstanding persistent atrial fibrillation I48.11 Atrial fibrillation type: longstanding persistent Chronic renal failure (CRF), stage 3b N18.32 Essential hypertension I10 Hypertension type: essential hypertension Toxic multinodular goiter E05.20 Time Spent (min) 35 (5) Atrial fibrillation Atrial fibrillation type: longstanding persistent Qualified Code(s): I48.11 - Longstanding persistent atrial fibrillation (7) Hypertension Hypertension type: essential hypertension Qualified Code(s): I10 - Essential (primary) hypertension
--- NOTE | 2023-04-16 15:19 | CT Scan Report ---
ABDOMEN AND PELVIS CT WITHOUT CONTRAST CT DOSE: 559.72 mGy.cm HISTORY: follow up of liver cysts TECHNIQUE: Multiaxial CT images of the abdomen and pelvis were performed without contrast. A dose lo wering technique was utilized adhering to the principles of ALARA. COMPARISON STUDY: Abdomen and pelvis CT 04/15/2023 and 01/23/2023. FINDINGS: Small bilateral pleural effusions have increased in size in the interval. Linear density wi thin the lower lobes posteriorly favor compressive atelectasis. No pneumoperitoneum. No pneumatosis. Postoperative changes again noted within the proximal left femur. Levoscoliosis and degenerative casanova ges within the lumbar spine. Coronary artery calcifications are noted. The heart remains mildly enlar ged. There is mild to moderate body wall edema. Multiple scattered round hypodense lesions seen throu ghout the liver. These are similar to the prior study. Dominant lesion within the right hepatic dome measures 2.5 cm. Additional heterogeneous areas within the liver are better appreciated on the recent contrast-enhanced CT. Prior cholecystectomy. The unenhanced pancreas, spleen, and right adrenal glan d are unremarkable. There is a stable 1.6 cm left adrenal gland nodule. Calcifications in the renal s inuses are likely vascular. Stable 9 mm angiolipoma within the right kidney. Additional hypo and hype rdense bilateral renal lesions are stable in size. These are incompletely characters on this noncontr ast study but likely represent hyperdense and simple cyst. No retroperitoneal lymphadenopathy. Calcif ied plaque within the normal caliber abdominal aorta. 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 There is mild fat stranding surrounding the graft which remains unchanged. No pelvic lym phadenopathy or pelvic free fluid. Residual contrast within the urinary bladder. No bladder wall thic kening. Prior hysterectomy. Mild pelvic floor collapse. Nondilated fluid-filled loops of large or sma ll bowel seen throughout the abdomen. This suggests a gastroenteritis/diarrheal illness. No evidence for bowel obstruction. No bowel wall thickening identified. Normal appendix. 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 IMPRESSION: 1. No significant change in the scattered indeterminate round hypodense lesions within the liver with the largest in the right hepatic lobe measuring 2.5 cm. 2. Fluid-filled nondilated loops of large or small bowel seen throughout the abdomen. This favors a g astroenteritis/diarrheal illness. 3. Increase in size in the small bilateral pleural effusions. 4. Mild to moderate body wall edema. 5. Additional findings as described above. ACT 112: Negative or not required by law. Electronically signed by: Leonard Lucia M.D. 04/16/2023 3:17 PM
--- NOTE | 2023-04-16 18:52 | Infectious Disease Progress Nt ---
Date of Service April 16, 2023 Assessment & Plan (1) Liver abscess: (2) Acute gastroenteritis: (3) Aspiration pneumonitis: (4) Liver lesion: (5) Diarrhea: Plan Lakeshia Junior is an 83-year-old woman with history of Afib on anticoagulation, HTN, COPD who presents to [facility] on 04/15/23 with diarrhea, nausea, fever, and generalized weakness 1 day, found on CT A/P to have multiple liver cysts vs. possible hepatic abscesses. ID is consulted for evaluation of possible liver abscesses. Broad ddx for liver lesions, which includes infection (bacterial, mycobacterial, fungal, parasitic) and noninfectious (malignancy i/s/o cirrhosis?). Some of these lesions were present on prior imaging studies (note 01/23/21 showing lesions that were new since 06/08/22) yet these are further increasing in quantity. It is not clear that these are infectious, though the appearance of some of the lesions was potentially suggestive of liver abscess. Cirrhotic morphology noted on 09/27/22 RUQUS. Would consider obtaining repeat RUQUS. Would discuss with IR to see if lesions would be amenable for drainage/biopsy, and would send infectious studies as below, as well as path. In consideration of possible liver abscesses, patient without travel outside the country, no animal exposure, no well water, no known exposure to TB. Considered hepatobiliary source although no jennifer-dil on CT. Interestingly, she did report eating beef liver (cooked, from grocery store) which was accompanied by acute diarrheal illness and imaging suggestive of colitis as well. 04/15 stool pathogen PCR panel negative including C. diff. Her fevers and leukocytosis may be due to an acute illness and it is unclear whether these are related to her liver lesions. Consider whether they could be from ongoing GI translocation and if so would consider colonoscopy. Liver lesions c/w parasitic infection such as Entamoeba or Echinococcus. Would expect solitary lesion and less acute presentation with Entamoeba, radiographic appearance not suggestive of Echinococcal cyst and without animal exposure risk factors. Laura can cause liver abscesses as well, though tentatively improving without antifungals. Given her ongoing leukocytosis and the severity of her presentation, would be reasonable to continue antibiotics. Would consider changing from cipro to ceftriaxone. Can continue metronidazole for now. Of note, CT chest with bronchial wall thickening and LLL opacification, but without significant respiratory symptoms. May be aspiration in the setting of n/v. Would continue to monitor. ID Problem List: 1.Possible hepatic abscess 2.Leukocytosis 3.Diarrhea 4.Possible aspiration pneumonitis. Recommendations: - Consider changing from cipro to ceftriaxone 2g IV Q24H - Continue metronidazole 500 mg IV Q8H - Obtain RUQUS - Discuss with IR to see if lesions would be amenable to drainage/biopsy. If so, would send for bacterial & fungal Gram stain & cx, AFB cx, path (with fungal and AFB stainin). - F/u BCx 04/14 ID will continue to follow. Yashira Reilly MD, MHS Infectious Diseases [facility]/ID Connect ID Connect direct line: [phone] Admission and Anticipated Discharge Date Admission Date: April 15, 2023 Subjective Subsequent visit was provided via telemedicine using two-way real-time interactive telecommunication between the patient and the telemedicine provider. For the duration of the visit, the provider was performing the assessment from a different facility than the patient. This includesuse of bluetooth stethoscope forauscultationperformed by the telepresenter that the telemedicine provider can hear if described in the physical exam. Electrical Controls Designer contact information: Please call ID Connect Call Center . (Phone Number For Physician Use Only) After establishing a telemedicine visit, patient was: Patient was verified with two unique identifiers, Patient/authorized rep acknowledged consent and understanding and Gave permission to continue telehealth session Time Spent with Patient: Subsequent => 35 min - Afebrile this am - WBC 25 - Some abdominal pain this morning but overall feeling better - One loose BM this am Physical Exam Physical Exam: Exam obtained with aid of in-person telepresenter. General: Well-appearing, no acute distress HEENT: Conjunctivae non-injected, sclerae anicteric, MMM, OP clear. Neck: No LAD CV: RRR, normal S1/S2; no murmurs, rubs, or gallops. Resp: CTAB; no wheezes, rales, or rhonchi. Respirations nonlabored. Abd: Soft, nondistended. +RUQ tenderness. Back: No tenderness to palpation along spine Ext: Warm and well-perfused, no edema. No joint warmth or effusions noted. Skin: Scattered ecchymoses on upper and lower extremities, as well as face. Results & Data Vital Signs (Past 12 Hours) Vital Signs Temp Pulse Resp BP Pulse Ox O2 Del Method 04/16/23 16:07 36.5 C 80 18 124/66 96 Room Air 04/16/23 07:37 36.7 C 85 18 130/68 94 Room Air (5) Diarrhea Diarrhea type: presumed infectious Qualified Code(s): R19.7 - Diarrhea, unspecified
[2023-04-16] MEDS: ENALAPRIL MALEATE 10 MG TAB PO SCH (19:41)
[2023-04-16] MEDS: LATANOPROST 0.005% OP SOLN 2.5 ML BTL OPB SCH (19:43)
[2023-04-17] MEDS: SODIUM CHLORIDE 0.9% 1,000 ML IV SCH ×2 (03:15→16:03)
[2023-04-17] MEDS: methIMAzole 5 MG TABLET PO SCH (05:35)
[2023-04-17] MEDS: metroNIDAZOLE 500 MG/100 ML BAG IV SCH ×3 (05:35→21:13)
[2023-04-17 07:01] LABS: BUN Creatinine Ratio 15.7 (10-20); Calcium 7.5 mg/dl (8.6-10.3); Creatinine Clr Calc Pharmacy 62.1 ml/min; Est GFR (African American) 104.5 ml/min; Est GFR (Non-African American) 90.2 ml/min; Potassium 3.3 mmol/L (3.5-5.1)
[2023-04-17 07:17] LABS: Hematocrit (blood only) 24.9 % (37.0-47.0); Hemoglobin 7.3 g/dl (12.0-16.0); Mean Corpuscular Hemoglobin 25.9 pg (25.0-34.0); Mean Corpuscular Hgb Conc 29.3 g/dL (32.0-36.0); Mean Corpuscular Volume 88.3 fL (80.0-100.0); Mean Platelet Volume 9.8 fL (9.4-12.4); Platelet Count 277 K/uL (130-400); RDW Coefficient of Variation 19.8 % (11.5-14.5); RDW Standard Deviation 63.6 fL (36.4-46.3); Red Blood Count 2.82 M/uL (4.20-5.40); White Blood Count 15.18 K/ul (4.8-10.8)
[2023-04-17] MEDS: SUCRALFATE 1 GM TAB PO SCH ×2 (08:41→20:05)
[2023-04-17] MEDS: ASPIRIN 81 MG ECTAB PO SCH (08:41)
[2023-04-17] MEDS: UMECLIDINIUM/VILANTEROL 62.5/25MCG 7 PUFFS/INHALER INH SCH (08:42)
[2023-04-17] MEDS: FLUTICASONE FUROATE 100MCG 14 PUFFS/INHALER INH SCH (08:42)
[2023-04-17] MEDS: APIXABAN 2.5 MG TAB PO SCH (08:43)
[2023-04-17] MEDS: PANTOprazole 40 MG TAB PO SCH ×2 (08:43→20:06)
[2023-04-17] MEDS: dilTIAZem HCL 180 MG CAPCR PO SCH (08:43)
[2023-04-17] MEDS: ATORVASTATIN 10 MG TAB PO SCH (08:43)
[2023-04-17] MEDS: PSYLLIUM or GUAR GUM FIBER POWDER PACKET PO SCH ×2 (08:43→20:05)
[2023-04-17] MEDS: CIPROFLOXACIN / D5W 400 MG/200 ML BAG IV SCH (08:50)
--- NOTE | 2023-04-17 13:07 | Infectious Disease Progress Nt ---
Date of Service April 17, 2023 Assessment & Plan (1) Liver abscess: (2) Acute gastroenteritis: (3) Aspiration pneumonitis: (4) Liver lesion: (5) Diarrhea: Plan Lakeshia Junior is an 83-year-old woman with history of Afib on anticoagulation, HTN, COPD who presents to [facility] on 04/15/23 with diarrhea, nausea, fever, and generalized weakness 1 day, found on CT A/P to have multiple liver cysts vs. possible hepatic abscesses. ID is consulted for evaluation of possible liver abscesses. Broad ddx for liver lesions, which includes infection (bacterial, mycobacterial, fungal, parasitic) and noninfectious (malignancy i/s/o cirrhosis?). Some of these lesions were present on prior imaging studies (note 01/23/21 showing lesions that were new since 06/08/22) yet these are further increasing in quantity. It is not clear that these are infectious, though the appearance of some of the lesions was potentially suggestive of liver abscess. Cirrhotic morphology noted on 09/27/22 RUQUS. GI had evaluated the patient in 09/2022 and 02/2023 and were aware of these findings. 01/13/23 with negative HCV Ab, +Hep A IgM positive, and HbsAg/cIgM neg. It is unclear that hep A would explain these findings but can repeat hep A Ab. Would consider obtaining repeat RUQUS. Would discuss with IR to see if lesions would be amenable for drainage/biopsy, and would send infectious studies as below, as well as path. In consideration of possible liver abscesses, patient without travel outside the country, no animal exposure, no well water, no known exposure to TB. Considered hepatobiliary source although no jennifer-dil on CT. Interestingly, she did report eating beef liver (cooked, from grocery store) which was accompanied by acute diarrheal illness and imaging suggestive of colitis as well. 04/15 stool pathogen PCR panel negative including C. diff. Her fevers and leukocytosis may be due to an acute illness and it is unclear whether these are related to her liver lesions. Consider whether they could be from ongoing GI translocation and if so would consider colonoscopy. Liver lesions c/w parasitic infection such as Entamoeba or Echinococcus. Would expect solitary lesion and less acute presentation with Entamoeba, radiographic appearance not suggestive of Echinococcal cyst and without animal exposure risk factors. Laura can cause liver abscesses as well, though tentatively improving without antifungals. Given her ongoing leukocytosis and the severity of her presentation, would be reasonable to continue antibiotics. Would consider changing from cipro to ceftriaxone. Can continue metronidazole for now. Of note, CT chest with bronchial wall thickening and LLL opacification, but without significant respiratory symptoms. May be aspiration in the setting of n/v. Would continue to monitor. ID Problem List: 1.Possible hepatic abscess 2.Leukocytosis 3.Diarrhea 4.Possible aspiration pneumonitis. Recommendations: - Change from cipro to ceftriaxone 2g IV Q24H - Continue metronidazole 500 mg IV Q8H - Consider obtaining RUQUS - Repeat hepatitis A Ab - F/u IR/CT-guided liver biopsy/drainage. If so, would send for bacterial & fungal Gram stain & cx, AFB cx, path (with fungal and AFB stain). - F/u BCx 04/14 ID will continue to follow. Please note that on 04/18/23, ID Connect will not round and will only be available for telephonic guidance. If questions, please contact [facility] at [phone]. Yashira Reilly MD, MHS Infectious Diseases [facility]/ID Connect ID Connect direct line: [phone] Admission and Anticipated Discharge Date Admission Date: April 15, 2023 Subjective This patient recommendation is based on a telemedicine consult request which was completed asynchronously through chart review and information provided by the primary physician. The patient was not seen or examined today. The evaluation is consultative in nature and all patient care and treatment decisions can either be accepted or rejected by the patient's primary hospital-based treating physician using their own independent medical judgment for their patient. Time Spent Reviewing Chart: 21 - 30 minutes - Afebrile - WBC 25 -> 15 - Awaiting possible IR liver bx Results & Data Vital Signs (Past 12 Hours) Vital Signs Temp Pulse Resp BP Pulse Ox O2 Del Method 04/17/23 11:04 97 H 18 155/78 H 04/17/23 09:41 Room Air 04/17/23 07:10 36.5 C 91 H 16 114/64 95 Room Air Diagnostic Findings Diagnostics: 04/16/21 CT A/P FINDINGS: Small bilateral pleural effusions have increased in size in the interval. Linear density within the lower lobes posteriorly favor compressive atelectasis. No pneumoperitoneum. No pneumatosis. Postoperative changes again noted within the proximal left femur. Levoscoliosis and degenerative changes within the lumbar spine. Coronary artery calcifications are noted. The heart remains mildly enlarged. There is mild to moderate body wall edema. Multiple scattered round hypodense lesions seen throughout the liver. These are similar to the prior study. Dominant lesion within the right hepatic dome measures 2.5 cm. Additional heterogeneous areas within the liver are better appreciated on the recent contrast-enhanced CT. Prior cholecystectomy. The unenhanced pancreas, spleen, and right adrenal gland are unremarkable. There is a stable 1.6 cm left adrenal gland nodule. Calcifications in the renal sinuses are likely vascular. Stable 9 mm angiolipoma within the right kidney. Additional hypo and hyperdense bilateral renal lesions are stable in size. These are incompletely characters on this noncontrast study but likely represent hyperdense and simple cyst. No retroperitoneal lymphadenopathy. Calcified plaque within the normal caliber abdominal aorta. 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 There is mild fat stranding surrounding the graft which remains unchanged. No pelvic lymphadenopathy or pelvic free fluid. Residual contrast within the urinary bladder. No bladder wall thickening. Prior hysterectomy. Mild pelvic floor collapse. Nondilated fluid-filled loops of large or small bowel seen throughout the abdomen. This suggests a gastroenteritis/diarrheal illness. No evidence for bowel obstruction. No bowel wall thickening identified. Normal appendix. 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 IMPRESSION: 1. No significant change in the scattered indeterminate round hypodense lesions within the liver with the largest in the right hepatic lobe measuring 2.5 cm. 2. Fluid-filled nondilated loops of large or small bowel seen throughout the abdomen. This favors a gastroenteritis/diarrheal illness. 3. Increase in size in the small bilateral pleural effusions. 4. Mild to moderate body wall edema. 5. Additional findings as described above. 04/14 CTA chest FINDINGS: Pulmonary arteries: Unremarkable. No CT evidence of pulmonary embolism. Aorta: No acute findings. No thoracic aortic aneurysm. 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 Lungs: Centrilobular emphysema. No mass. No consolidation. Pleural space: Tiny left pleural effusion. Bronchial wall thickening and opacification of the left lower lobe bronchials with patchy pulmonary opacities concerning for an infectious etiology. No pneumothorax. Heart: Unremarkable. No cardiomegaly. No significant pericardial effusion. No evidence of RV dysfunction. Bones/joints: No acute fracture. No dislocation. Soft tissues: Unremarkable. Lymph nodes: Unremarkable. No enlarged lymph nodes. 1. No CT evidence of pulmonary embolism. 2. Bronchial wall thickening and opacification of the left lower lobe bronchials with patchy pulmonary opacities concerning for an infectious etiology. 04/14 CT A/P ABDOMEN: Liver: Markedly abnormal liver with approximately 15 new cystic lesions in bilateral lobes of the liver with the largest measuring up to 2.2 cm in the right lobe with surrounding edema. Findings are concerning for intrahepatic abscesses. The underlying liver parenchyma is also diffusely abnormal with a striated appearance to the liver parenchyma concerning for diffuse edema. No evidence of biliary dilatation. Gallbladder and bile ducts: Gallbladder has been removed. Pancreas: Unremarkable. No mass. No ductal dilation. Spleen: Unremarkable. No splenomegaly. Adrenals: 1.5 cm left adrenal nodules unchanged from prior exam. Kidneys and ureters: Numerous simple bilateral renal cysts measuring up to 1.6 cm. No further workup is required. No hydronephrosis. Stomach and bowel: Unremarkable. No obstruction. No mucosal thickening. IMPRESSION: Markedly abnormal liver with approximately 15 new cystic lesions in bilateral lobes of the liver with the largest measuring up to 2.2 cm in the right lobe with surrounding edema. Findings are concerning for intrahepatic abscesses. The underlying liver parenchyma is also diffusely abnormal with a striated appearance to the liver parenchyma concerning for diffuse edema. No evidence of biliary dilatation. Micro Summary: 04/15 UA neg for nitrites and LE 04/15 stool PCR panel negative 04/14 BCx x2: NGTD Prior 03/10/23 RVP SARS-CoV-2 detected 12/28/22 UCx: E. faecalis 01/23/23 hepatitis B: HBsAg neg, cIgM neg 01/23/23 hep A IgM reactive 01/23/23 HCV Ab negative Antibiotic Summary: metronidazole (04/14-p) ciprofloxacin (04/15-p) vancomycin (04/14) pip-tazo (04/14) (5) Diarrhea Diarrhea type: presumed infectious Qualified Code(s): R19.7 - Diarrhea, unspecified
--- NOTE | 2023-04-17 13:57 | Hospitalist Progress Note ---
Date of Service April 17, 2023 Assessment & Plan (1) Acute gastroenteritis: Plan: Episods of diarrhea improving, only 2 episodes of semi formed stool yesterday Biofire was negative, cultures negative so far Leucocytosis is improving Continue Metronidazole and Ciprofloxacin (2) Liver lesion: Plan: Multiple cysts observed. White count is markedly elevated and radiology raised the question of multiple liver abscesses. Continue intravenous Cipro and Flagyl. Infectious disease consultation requested and pending. No recent travel and no recent exposure to contaminated water. I seriously doubt if there liver abscesses I think it is liver cysts as noted in previous imaging. Repeat CT abdomen and pelvis did not show any significant change from the one obtained at admission Consult IR to biopsy the cyst and sent for cultures Hold Apixaban in anticipation of biopsy (3) Multiple pulmonary nodules determined by computed tomography of lung: Plan: Multiple lung nodules. Follows up with pulmonology (4) Chronic obstructive pulmonary disease: Plan: Stable. Continue current medical management (5) Atrial fibrillation: Plan: Stable. Continue current medical management with diltiazem and apixaban (6) Chronic renal failure (CRF), stage 3b: Plan: Stable. Monitor intake and output. Avoid nephrotoxic medication (7) Hypertension: Plan: Stable. Continue current medical management (8) Toxic multinodular goiter: Plan: Stable. Continue methimazole therapy Plan Hopeful discharge to home soon Admission and Anticipated Discharge Date Admission Date: April 15, 2023 Subjective patient seen and examined, feels better overall, had 2 episodes of loose BM today Review of Systems Review of Systems: All systems reviewed are negative, apart from the ones contained in the history. Physical Exam Physical Exam: The patient is awake, alert and oriented 3, well developed and well nourished, normocephalic and atraumatic, lying in bed and in no acute distress. HEENT--PERRL, EOMI, mucous membranes and oropharynx mildly dry Neck--supple. No JVD. No bruits. Thyroid normal, trachea midline, no adenopathy. Heart--normal S1 and S2. No murmurs, rubs or gallops. Lungs--clear bilaterally, no respiratory distress, no accessory muscle use. Abdomen--normal bowel sounds and soft. Mild epigastric and left sided abdominal pain Extremities--no cyanosis or clubbing. No edema. Dermatologic--normal skin turgor, normal color, no abnormal lymph nodes, no rash. Neurologic--cranial nerves II through XII grossly intact. Rheumatologic--normal range of motion. Psychiatric--normal affect. Results & Data Results & Data Vital Signs (Past 12 Hours) Vital Signs Temp Pulse Resp BP Pulse Ox O2 Del Method 04/17/23 11:04 97 H 18 155/78 H 04/17/23 09:41 Room Air 04/17/23 07:10 97.7 F 91 H 16 114/64 95 Room Air PG Care Time/CCT Total # of Minutes Spent Total Time Spent with Patient: Total time spent is greater than 50% in coordination of care (as documented) at patient's floor/unit and/or counseling patient: Coding Level of Care Code 46739 SUB INP/OBS CARE 2/35MIN Diagnoses Acute gastroenteritis K52.9 Liver lesion K76.9 Multiple pulmonary nodules determined by computed tomography of lung R91.8 Chronic obstructive pulmonary disease J44.9 Longstanding persistent atrial fibrillation I48.11 Atrial fibrillation type: longstanding persistent Chronic renal failure (CRF), stage 3b N18.32 Essential hypertension I10 Hypertension type: essential hypertension Toxic multinodular goiter E05.20 Time Spent (min) 35 (5) Atrial fibrillation Atrial fibrillation type: longstanding persistent Qualified Code(s): I48.11 - Longstanding persistent atrial fibrillation (7) Hypertension Hypertension type: essential hypertension Qualified Code(s): I10 - Essential (primary) hypertension
[2023-04-17] MEDS: cefTRIAXone SODIUM 2,000 MG in DEXTROSE 5 % MINI-B 50 ML IV SCH (17:39)
[2023-04-17] MEDS: LATANOPROST 0.005% OP SOLN 2.5 ML BTL OPB SCH (20:05)
[2023-04-17] MEDS: ENALAPRIL MALEATE 10 MG TAB PO SCH (20:06)
--- NOTE | 2023-04-17 23:16 | Electrocardiogram Report ---
Test Reason : Blood Pressure : / mmHG Vent. Rate : 102 BPM Atrial Rate : 000 BPM P-R Int : 000 ms QRS Dur : 078 ms QT Int : 348 ms P-R-T Axes : 000 027 005 degrees QTc Int : 453 ms Atrial fibrillation with rapid ventricular response Low voltage QRS Possible Septal infarct (cited on or before 07-AUG-2021) Abnormal ECG When compared with ECG of 26-JUL-2022 14:27, Vent. rate has increased BY 34 BPM Questionable change in initial forces of Anterior leads Confirmed by Lance Priest ([id number]) on 04/17/2023 11:16:10 PM Referred By: REFERRED SELF Confirmed By:Lance Priest
[2023-04-17] MEDS: ACETAMINOPHEN 325 MG TAB PO PRN (23:33)
[2023-04-18] MEDS: SODIUM CHLORIDE 0.9% 1,000 ML IV SCH (04:34)
[2023-04-18] MEDS: methIMAzole 5 MG TABLET PO SCH (04:37)
[2023-04-18] MEDS: metroNIDAZOLE 500 MG/100 ML BAG IV SCH ×3 (05:12→21:16)
[2023-04-18 06:21] LABS: Hematocrit (blood only) 25.5 % (37.0-47.0); Hemoglobin 7.5 g/dl (12.0-16.0); Mean Corpuscular Hgb Conc 29.4 g/dL (32.0-36.0); Mean Corpuscular Volume 88.2 fL (80.0-100.0); Mean Platelet Volume 9.9 fL (9.4-12.4); Platelet Count 272 K/uL (130-400); RDW Coefficient of Variation 19.9 % (11.5-14.5); RDW Standard Deviation 64.5 fL (36.4-46.3); Red Blood Count 2.89 M/uL (4.20-5.40); White Blood Count 6.82 K/ul (4.8-10.8)
[2023-04-18 06:27] LABS: Albumin Level 2.4 gm/dl (3.4-5.0); BUN Creatinine Ratio 8.9 (10-20); Bilirubin,Total 0.2 mg/dl (0.2-1.0); Calcium 7.5 mg/dl (8.6-10.3); Creatinine Clr Calc Pharmacy 70.4 ml/min; Est GFR (African American) 108.9 ml/min; Globulin 2.4 gm/dl (2.5-4.0); Total Protein 4.8 gm/dl (6.0-8.3)
[2023-04-18] MEDS: PSYLLIUM or GUAR GUM FIBER POWDER PACKET PO SCH ×2 (07:45→20:05)
--- NOTE | 2023-04-18 07:45 | Electrocardiogram Report ---
Test Reason : Blood Pressure : / mmHG Vent. Rate : 088 BPM Atrial Rate : 120 BPM P-R Int : 000 ms QRS Dur : 084 ms QT Int : 380 ms P-R-T Axes : 000 064 016 degrees QTc Int : 459 ms Atrial fibrillation Low voltage QRS Cannot rule out Anterior infarct (cited on or before 07-AUG-2021) Nonspecific T wave abnormality Abnormal ECG When compared with ECG of 17-APR-2023 10:59, No significant change was found Confirmed by Lance Priest ([id number]) on 04/18/2023 7:44:56 AM Referred By: REFERRED SELF Confirmed By:Lance Priest
[2023-04-18] MEDS: ASPIRIN 81 MG ECTAB PO SCH (07:48)
[2023-04-18] MEDS: FLUTICASONE FUROATE 100MCG 14 PUFFS/INHALER INH SCH (07:48)
[2023-04-18] MEDS: dilTIAZem HCL 180 MG CAPCR PO SCH (07:48)
[2023-04-18] MEDS: UMECLIDINIUM/VILANTEROL 62.5/25MCG 7 PUFFS/INHALER INH SCH (07:48)
[2023-04-18] MEDS: PANTOprazole 40 MG TAB PO SCH ×2 (07:49→20:02)
[2023-04-18] MEDS: ATORVASTATIN 10 MG TAB PO SCH (07:49)
[2023-04-18] MEDS ORDERED: POTASSIUM CHLORIDE CRTAB 20 MEQ TABCR PO STA (07:59)
[2023-04-18] MEDS: SUCRALFATE 1 GM TAB PO SCH ×2 (08:32→20:02)
--- NOTE | 2023-04-18 11:02 | Hospitalist Progress Note ---
Date of Service April 18, 2023 Assessment & Plan (1) Acute gastroenteritis: Plan: Diarrhea has essentially resolved Biofire was negative, cultures negative so far WBC now within normal limits Continue Metronidazole and Ciprofloxacin (2) Liver lesion: Plan: Multiple cysts observed. White count is markedly elevated and radiology raised the question of multiple liver abscesses. Continue intravenous Cipro and Flagyl. Infectious disease consultation requested and pending. No recent travel and no recent exposure to contaminated water. I seriously doubt if there liver abscesses I think it is liver cysts as noted in previous imaging. Repeat CT abdomen and pelvis did not show any significant change from the one obtained at admission Consult IR to biopsy the cyst and sent for cultures Hold Apixaban in anticipation of biopsy (3) Multiple pulmonary nodules determined by computed tomography of lung: Plan: Multiple lung nodules. Follows up with pulmonology (4) Chronic obstructive pulmonary disease: Plan: Stable. Continue current medical management (5) Atrial fibrillation: Plan: Stable. Continue current medical management with diltiazem and apixaban (6) Chronic renal failure (CRF), stage 3b: Plan: Stable. Monitor intake and output. Avoid nephrotoxic medication (7) Hypertension: Plan: Stable. Continue current medical management (8) Toxic multinodular goiter: Plan: Stable. Continue methimazole therapy Plan Hopeful discharge to home soon Admission and Anticipated Discharge Date Admission Date: April 15, 2023 Subjective patient seen and examined, feels better overall, had 2 episodes of loose BM today Review of Systems Review of Systems: All systems reviewed are negative, apart from the ones contained in the history. Physical Exam Physical Exam: The patient is awake, alert and oriented 3, well developed and well nourished, normocephalic and atraumatic, lying in bed and in no acute distress. HEENT--PERRL, EOMI, mucous membranes and oropharynx mildly dry Neck--supple. No JVD. No bruits. Thyroid normal, trachea midline, no adenopathy. Heart--normal S1 and S2. No murmurs, rubs or gallops. Lungs--clear bilaterally, no respiratory distress, no accessory muscle use. Abdomen--normal bowel sounds and soft. Mild epigastric and left sided abdominal pain Extremities--no cyanosis or clubbing. No edema. Dermatologic--normal skin turgor, normal color, no abnormal lymph nodes, no rash. Neurologic--cranial nerves II through XII grossly intact. Rheumatologic--normal range of motion. Psychiatric--normal affect. Results & Data Results & Data Vital Signs (Past 12 Hours) Vital Signs Temp Pulse Resp BP Pulse Ox O2 Del Method 04/18/23 07:31 97.2 F L 92 H 16 161/78 H 94 Room Air PG Care Time/CCT Total # of Minutes Spent Total Time Spent with Patient: Total time spent is greater than 50% in coordination of care (as documented) at patient's floor/unit and/or counseling patient: Coding Level of Care Code 42103 SUB INP/OBS CARE 235MIN Diagnoses Acute gastroenteritis K52.9 Liver lesion K76.9 Multiple pulmonary nodules determined by computed tomography of lung R91.8 Chronic obstructive pulmonary disease J44.9 Longstanding persistent atrial fibrillation I48.11 Atrial fibrillation type: longstanding persistent Chronic renal failure (CRF), stage 3b N18.32 Essential hypertension I10 Hypertension type: essential hypertension Toxic multinodular goiter E05.20 Time Spent (min) 35 (5) Atrial fibrillation Atrial fibrillation type: longstanding persistent Qualified Code(s): I48.11 - Longstanding persistent atrial fibrillation (7) Hypertension Hypertension type: essential hypertension Qualified Code(s): I10 - Essential (primary) hypertension
[2023-04-18] MEDS: cefTRIAXone SODIUM 2,000 MG in DEXTROSE 5 % MINI-B 50 ML IV SCH (16:17)
[2023-04-18] MEDS: LATANOPROST 0.005% OP SOLN 2.5 ML BTL OPB SCH (20:03)
[2023-04-18] MEDS: ENALAPRIL MALEATE 10 MG TAB PO SCH (20:03)
[2023-04-19] MEDS: metroNIDAZOLE 500 MG/100 ML BAG IV SCH ×3 (05:32→21:05)
[2023-04-19] MEDS: methIMAzole 5 MG TABLET PO SCH (05:33)
[2023-04-19 06:40] LABS: Hematocrit (blood only) 26.8 % (37.0-47.0); Hemoglobin 8.3 g/dl (12.0-16.0); Mean Corpuscular Hemoglobin 26.1 pg (25.0-34.0); Mean Corpuscular Volume 84.3 fL (80.0-100.0); Mean Platelet Volume 9.8 fL (9.4-12.4); Platelet Count 301 K/uL (130-400); RDW Coefficient of Variation 19.5 % (11.5-14.5); RDW Standard Deviation 60.3 fL (36.4-46.3); Red Blood Count 3.18 M/uL (4.20-5.40); White Blood Count 6.23 K/ul (4.8-10.8)
[2023-04-19 07:06] LABS: BUN Creatinine Ratio 7.5 (10-20); Calcium 7.9 mg/dl (8.6-10.3); Creatinine Clr Calc Pharmacy 79.2 ml/min; Est GFR (African American) 113.2 ml/min; Est GFR (Non-African American) 97.7 ml/min; Potassium 3.1 mmol/L (3.5-5.1)
[2023-04-19] MEDS ORDERED: POTASSIUM CHLORIDE CRTAB 20 MEQ TABCR PO STA (07:52)
[2023-04-19] MEDS: ASPIRIN 81 MG ECTAB PO SCH (08:02)
[2023-04-19] MEDS: PSYLLIUM or GUAR GUM FIBER POWDER PACKET PO SCH ×2 (08:02→19:35)
[2023-04-19] MEDS: ATORVASTATIN 10 MG TAB PO SCH (08:02)
[2023-04-19] MEDS: PANTOprazole 40 MG TAB PO SCH ×2 (08:03→19:34)
[2023-04-19] MEDS: dilTIAZem HCL 180 MG CAPCR PO SCH (08:03)
[2023-04-19] MEDS: SUCRALFATE 1 GM TAB PO SCH ×2 (08:04→19:34)
[2023-04-19] MEDS: FLUTICASONE FUROATE 100MCG 14 PUFFS/INHALER INH SCH (08:04)
[2023-04-19] MEDS: UMECLIDINIUM/VILANTEROL 62.5/25MCG 7 PUFFS/INHALER INH SCH (08:05)
--- NOTE | 2023-04-19 11:04 | Hospitalist Progress Note ---
Date of Service April 19, 2023 Assessment & Plan (1) Acute gastroenteritis: Plan: Diarrhea has essentially resolved Biofire was negative, cultures negative so far WBC now within normal limits Continue Metronidazole and Ciprofloxacin (2) Liver lesion: Plan: Multiple cysts observed. White count is markedly elevated and radiology raised the question of multiple liver abscesses. Continue intravenous Cipro and Flagyl. Infectious disease consultation requested and pending. No recent travel and no recent exposure to contaminated water. I seriously doubt if there liver abscesses I think it is liver cysts as noted in previous imaging. Repeat CT abdomen and pelvis did not show any significant change from the one obtained at admission Consult IR to biopsy the cyst and sent for cultures Hold Apixaban in anticipation of biopsy (3) Multiple pulmonary nodules determined by computed tomography of lung: Plan: Multiple lung nodules. Follows up with pulmonology (4) Chronic obstructive pulmonary disease: Plan: Stable. Continue current medical management (5) Atrial fibrillation: Plan: Stable. Continue current medical management with diltiazem and apixaban (6) Chronic renal failure (CRF), stage 3b: Plan: Stable. Monitor intake and output. Avoid nephrotoxic medication (7) Hypertension: Plan: Stable. Continue current medical management (8) Toxic multinodular goiter: Plan: Stable. Continue methimazole therapy (9) Hypokalemia: Plan: Likely due to GI loss Replace Plan Hopeful discharge to home soon Admission and Anticipated Discharge Date Admission Date: April 15, 2023 Subjective patient seen and examined, feels better overall, no new complaints today Review of Systems Review of Systems: All systems reviewed are negative, apart from the ones contained in the history. Physical Exam Physical Exam: The patient is awake, alert and oriented 3, well developed and well nourished, normocephalic and atraumatic, lying in bed and in no acute distress. HEENT--PERRL, EOMI, mucous membranes and oropharynx mildly dry Neck--supple. No JVD. No bruits. Thyroid normal, trachea midline, no adenopathy. Heart--normal S1 and S2. No murmurs, rubs or gallops. Lungs--clear bilaterally, no respiratory distress, no accessory muscle use. Abdomen--normal bowel sounds and soft. Mild epigastric and left sided abdominal pain Extremities--no cyanosis or clubbing. No edema. Dermatologic--normal skin turgor, normal color, no abnormal lymph nodes, no rash. Neurologic--cranial nerves II through XII grossly intact. Rheumatologic--normal range of motion. Psychiatric--normal affect. Results & Data Results & Data Vital Signs (Past 12 Hours) Vital Signs Temp Pulse Resp BP Pulse Ox O2 Del Method 04/19/23 08:02 97.5 F L 88 16 174/82 H 96 Room Air 04/19/23 07:52 Room Air PG Care Time/CCT Total # of Minutes Spent Total Time Spent with Patient: Total time spent is greater than 50% in coordination of care (as documented) at patient's floor/unit and/or counseling patient: Coding Level of Care Code 80584 SUB INP/OBS CARE 235MIN Diagnoses Acute gastroenteritis K52.9 Liver lesion K76.9 Multiple pulmonary nodules determined by computed tomography of lung R91.8 Chronic obstructive pulmonary disease J44.9 Longstanding persistent atrial fibrillation I48.11 Atrial fibrillation type: longstanding persistent Chronic renal failure (CRF), stage 3b N18.32 Essential hypertension I10 Hypertension type: essential hypertension Toxic multinodular goiter E05.20 Hypokalemia E87.6 Time Spent (min) 35 (5) Atrial fibrillation Atrial fibrillation type: longstanding persistent Qualified Code(s): I48.11 - Longstanding persistent atrial fibrillation (7) Hypertension Hypertension type: essential hypertension Qualified Code(s): I10 - Essential (primary) hypertension
--- NOTE | 2023-04-19 15:24 | Infectious Disease Progress Nt ---
Date of Service April 19, 2023 Assessment & Plan (1) Liver abscess: (2) Acute gastroenteritis: (3) Aspiration pneumonitis: (4) Liver lesion: (5) Diarrhea: Plan Lakeshia Junior is an 83-year-old woman with history of Afib on anticoagulation, HTN, COPD who presents to [facility] on 04/15/23 with diarrhea, nausea, fever, and generalized weakness 1 day, found on CT A/P to have multiple liver cysts vs. possible hepatic abscesses. ID is consulted for evaluation of possible liver abscesses. Broad ddx for liver lesions, which includes infection (bacterial, mycobacterial, fungal, parasitic) and noninfectious (malignancy i/s/o cirrhosis?). Some of these lesions were present on prior imaging studies (note 01/23/21 showing lesions that were new since 06/08/22) yet these are further increasing in quantity. It is not clear that these are infectious, though the appearance of some of the lesions was potentially suggestive of liver abscess. Cirrhotic morphology noted on 09/27/22 RUQUS. GI had evaluated the patient in 09/2022 and 02/2023 and were aware of these findings. 01/13/23 with negative HCV Ab, +Hep A IgM positive, and HbsAg/cIgM neg. It is unclear that hep A would explain these findings but can repeat hep A Ab. Would consider obtaining repeat RUQUS. Would discuss with IR to see if lesions would be amenable for drainage/biopsy, and would send infectious studies as below, as well as path. In consideration of possible liver abscesses, patient without travel outside the country, no animal exposure, no well water, no known exposure to TB. Considered hepatobiliary source although no jennifer-dil on CT. Interestingly, she did report eating beef liver (cooked, from grocery store) which was accompanied by acute diarrheal illness and imaging suggestive of colitis as well. 04/15 stool pathogen PCR panel negative including C. diff. Her fevers and leukocytosis may be due to an acute illness and it is unclear whether these are related to her liver lesions. Consider whether they could be from ongoing GI translocation and if so would consider colonoscopy. Liver lesions c/w parasitic infection such as Entamoeba or Echinococcus. Would expect solitary lesion and less acute presentation with Entamoeba, radiographic appearance not suggestive of Echinococcal cyst and without animal exposure risk factors. Laura can cause liver abscesses as well, though tentatively improving without antifungals. Given her the severity of her initial presentation, would be reasonable to continue antibiotics. Can continue ceftriaxone and metronidazole for now. Of note, CT chest with bronchial wall thickening and LLL opacification, but without significant respiratory symptoms. May be aspiration in the setting of n/v. Would continue to monitor. ID Problem List: 1.Possible hepatic abscess 2.Leukocytosis 3.Diarrhea 4.Possible aspiration pneumonitis. Recommendations: - Continue ceftriaxone 2g IV Q24H - Continue metronidazole 500 mg IV Q8H - Consider obtaining RUQUS - Repeat hepatitis A Ab - F/u IR/CT-guided liver biopsy/drainage. If so, would send for bacterial & fungal Gram stain & cx, AFB cx, path (with fungal and AFB stain). - F/u BCx 04/14 ID will continue to follow, but does not monitor the chart or round over the weekend; covering physician can be contacted at [phone] [facility] for telephonic consultation if needed. I will resume care of the ID service on Saturday. Yashira Reilly MD, S Infectious Diseases [facility]/ID Connect ID Connect direct line: [phone] Admission and Anticipated Discharge Date Admission Date: April 15, 2023 Subjective This patient recommendation is based on a telemedicine consult request which was completed asynchronously through chart review and information provided by the primary physician. The patient was not seen or examined today. The evaluation is consultative in nature and all patient care and treatment decisions can either be accepted or rejected by the patient's primary hospital-based treating physician using their own independent medical judgment for their patient. Time Spent Reviewing Chart: 21 - 30 minutes - Afebrile - WBC 6 - 04/18 AST 11 ALT 10 alk phos 66 Results & Data Vital Signs (Past 12 Hours) Vital Signs Temp Pulse Resp BP Pulse Ox O2 Del Method 04/19/23 08:02 36.4 C L 88 16 174/82 H 96 Room Air 04/19/23 07:52 Room Air Diagnostic Findings Diagnostics: 04/16/21 CT A/P Multiple scattered round hypodense lesions seen throughout the liver. These are similar to the prior study. Dominant lesion within the right hepatic dome measures 2.5 cm. Additional heterogeneous areas within the liver are better appreciated on the recent contrast-enhanced CT. Prior cholecystectomy. 1. No significant change in the scattered indeterminate round hypodense lesions within the liver with the largest in the right hepatic lobe measuring 2.5 cm. 2. Fluid-filled nondilated loops of large or small bowel seen throughout the abdomen. This favors a gastroenteritis/diarrheal illness. 3. Increase in size in the small bilateral pleural effusions. 4. Mild to moderate body wall edema. 5. Additional findings as described above. 04/14 CTA chest FINDINGS: Pulmonary arteries: Unremarkable. No CT evidence of pulmonary embolism. Aorta: No acute findings. No thoracic aortic aneurysm. 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 Lungs: Centrilobular emphysema. No mass. No consolidation. Pleural space: Tiny left pleural effusion. Bronchial wall thickening and opacification of the left lower lobe bronchials with patchy pulmonary opacities concerning for an infectious etiology. No pneumothorax. Heart: Unremarkable. No cardiomegaly. No significant pericardial effusion. No evidence of RV dysfunction. Bones/joints: No acute fracture. No dislocation. Soft tissues: Unremarkable. Lymph nodes: Unremarkable. No enlarged lymph nodes. 1. No CT evidence of pulmonary embolism. 2. Bronchial wall thickening and opacification of the left lower lobe bronchials with patchy pulmonary opacities concerning for an infectious etiology. 04/14 CT A/P Liver: Markedly abnormal liver with approximately 15 new cystic lesions in bilateral lobes of the liver with the largest measuring up to 2.2 cm in the right lobe with surrounding edema. Findings are concerning for intrahepatic abscesses. The underlying liver parenchyma is also diffusely abnormal with a striated appearance to the liver parenchyma concerning for diffuse edema. thickening. IMPRESSION: Markedly abnormal liver with approximately 15 new cystic lesions in bilateral lobes of the liver with the largest measuring up to 2.2 cm in the right lobe with surrounding edema. Findings are concerning for intrahepatic abscesses. The underlying liver parenchyma is also diffusely abnormal with a striated appearance to the liver parenchyma concerning for diffuse edema. No evidence of biliary dilatation. Micro Summary: 04/15 UA neg for nitrites and LE 04/15 stool PCR panel negative 04/14 BCx x2: NGTD Prior 03/10/23 RVP SARS-CoV-2 detected 12/28/22 UCx: E. faecalis 01/23/23 hepatitis B: HBsAg neg, cIgM neg 01/23/23 hep A IgM reactive 01/23/23 HCV Ab negative Antibiotic Summary: ceftriaxone (04/17-present) metronidazole (04/14-present) Prior ciprofloxacin (04/15-04/17) vancomycin (04/14) pip-tazo (04/14) (5) Diarrhea Diarrhea type: presumed infectious Qualified Code(s): R19.7 - Diarrhea, unspecified
[2023-04-19] MEDS: cefTRIAXone SODIUM 2,000 MG in DEXTROSE 5 % MINI-B 50 ML IV SCH (17:06)
[2023-04-19] MEDS: ENALAPRIL MALEATE 10 MG TAB PO SCH (19:34)
[2023-04-19] MEDS: LATANOPROST 0.005% OP SOLN 2.5 ML BTL OPB SCH (19:35)
[2023-04-20] MEDS: MoRPHine SULFATE 2 MG/ML CARP IV PRN ×2 (05:27→09:52)
[2023-04-20] MEDS: metroNIDAZOLE 500 MG/100 ML BAG IV SCH ×3 (05:30→21:08)
[2023-04-20] MEDS: methIMAzole 5 MG TABLET PO SCH (05:31)
[2023-04-20 07:59] LABS: Hematocrit (blood only) 31.3 % (37.0-47.0); Hemoglobin 9.7 g/dl (12.0-16.0); Mean Corpuscular Volume 83.9 fL (80.0-100.0); Mean Platelet Volume 9.6 fL (9.4-12.4); Platelet Count 337 K/uL (130-400); RDW Coefficient of Variation 20.3 % (11.5-14.5); RDW Standard Deviation 62.4 fL (36.4-46.3); Red Blood Count 3.73 M/uL (4.20-5.40)
[2023-04-20] MEDS: FLUTICASONE FUROATE 100MCG 14 PUFFS/INHALER INH SCH (08:02)
[2023-04-20] MEDS: UMECLIDINIUM/VILANTEROL 62.5/25MCG 7 PUFFS/INHALER INH SCH (08:02)
[2023-04-20] MEDS: ATORVASTATIN 10 MG TAB PO SCH (08:03)
[2023-04-20] MEDS: PANTOprazole 40 MG TAB PO SCH ×2 (08:03→21:05)
[2023-04-20] MEDS: ASPIRIN 81 MG ECTAB PO SCH (08:04)
[2023-04-20] MEDS: SUCRALFATE 1 GM TAB PO SCH ×2 (08:04→21:05)
[2023-04-20] MEDS: dilTIAZem HCL 180 MG CAPCR PO SCH (08:05)
[2023-04-20] MEDS: PSYLLIUM or GUAR GUM FIBER POWDER PACKET PO SCH ×2 (08:06→21:06)
[2023-04-20 08:16] LABS: BUN Creatinine Ratio 3.9 (10-20); Calcium 8.2 mg/dl (8.6-10.3); Creatinine Clr Calc Pharmacy 62.1 ml/min; Est GFR (African American) 104.5 ml/min; Est GFR (Non-African American) 90.2 ml/min; Potassium 3.4 mmol/L (3.5-5.1)
[2023-04-20] MEDS: ACETAMINOPHEN 325 MG TAB PO PRN ×2 (09:02→13:32)
--- NOTE | 2023-04-20 12:52 | Hospitalist Progress Note ---
Date of Service April 20, 2023 Assessment & Plan (1) Acute gastroenteritis: Plan: Diarrhea has essentially resolved, but 1 or 2 loose stools in a day Biofire was negative, cultures negative so far WBC now within normal limits, although trended up a little today Continue Metronidazole and Ciprofloxacin (2) Liver lesion: Plan: Multiple cysts observed. White count is markedly elevated and radiology raised the question of multiple liver abscesses. Continue intravenous Cipro and Flagyl. Infectious disease consultation requested and pending. No recent travel and no recent exposure to contaminated water. I seriously doubt if there liver abscesses I think it is liver cysts as noted in previous imaging. Repeat CT abdomen and pelvis did not show any significant change from the one obtained at admission Consult IR to biopsy the cyst and sent for cultures Hold Apixaban in anticipation of biopsy, hopefully this will happen on Saturday (3) Multiple pulmonary nodules determined by computed tomography of lung: Plan: Multiple lung nodules. Follows up with pulmonology (4) Chronic obstructive pulmonary disease: Plan: Stable. Continue current medical management (5) Atrial fibrillation: Plan: Stable. Continue current medical management with diltiazem and apixaban (6) Chronic renal failure (CRF), stage 3b: Plan: Stable. Monitor intake and output. Avoid nephrotoxic medication (7) Hypertension: Plan: Stable. Continue current medical management (8) Toxic multinodular goiter: Plan: Stable. Continue methimazole therapy (9) Hypokalemia: Plan: Likely due to GI loss Replace Plan Hopeful discharge to home soon Admission and Anticipated Discharge Date Admission Date: April 15, 2023 Subjective patient seen and examined, complained of epigastric ain this morning, still having a couple of loose stools in a day Review of Systems Review of Systems: All systems reviewed are negative, apart from the ones contained in the history. Physical Exam Physical Exam: The patient is awake, alert and oriented 3, well developed and well nourished, normocephalic and atraumatic, lying in bed and in no acute distress. HEENT--PERRL, EOMI, mucous membranes and oropharynx mildly dry Neck--supple. No JVD. No bruits. Thyroid normal, trachea midline, no adenopathy. Heart--normal S1 and S2. No murmurs, rubs or gallops. Lungs--clear bilaterally, no respiratory distress, no accessory muscle use. Abdomen--normal bowel sounds and soft. Mild epigastric and left sided abdominal pain Extremities--no cyanosis or clubbing. No edema. Dermatologic--normal skin turgor, normal color, no abnormal lymph nodes, no rash. Neurologic--cranial nerves II through XII grossly intact. Rheumatologic--normal range of motion. Psychiatric--normal affect. Results & Data Results & Data Vital Signs (Past 12 Hours) Vital Signs Temp Pulse Resp BP Pulse Ox O2 Del Method 04/20/23 07:49 98.1 F 93 H 16 145/55 H 93 Room Air 04/20/23 07:19 Room Air PG Care Time/CCT Total # of Minutes Spent Total Time Spent with Patient: Total time spent is greater than 50% in coordination of care (as documented) at patient's floor/unit and/or counseling patient: Coding Level of Care Code 77059 SUB INP/OBS CARE 2/35MIN Diagnoses Acute gastroenteritis K52.9 Liver lesion K76.9 Multiple pulmonary nodules determined by computed tomography of lung R91.8 Chronic obstructive pulmonary disease J44.9 Longstanding persistent atrial fibrillation I48.11 Atrial fibrillation type: longstanding persistent Chronic renal failure (CRF), stage 3b N18.32 Essential hypertension I10 Hypertension type: essential hypertension Toxic multinodular goiter E05.20 Hypokalemia E87.6 Time Spent (min) 35 (5) Atrial fibrillation Atrial fibrillation type: longstanding persistent Qualified Code(s): I48.11 - Longstanding persistent atrial fibrillation (7) Hypertension Hypertension type: essential hypertension Qualified Code(s): I10 - Essential (primary) hypertension
[2023-04-20] MEDS: cefTRIAXone SODIUM 2,000 MG in DEXTROSE 5 % MINI-B 50 ML IV SCH (15:51)
[2023-04-20] MEDS: ENALAPRIL MALEATE 10 MG TAB PO SCH (21:05)
[2023-04-20] MEDS: LATANOPROST 0.005% OP SOLN 2.5 ML BTL OPB SCH (21:06)
[2023-04-21] MEDS: metroNIDAZOLE 500 MG/100 ML BAG IV SCH ×4 (06:05→22:51)
[2023-04-21] MEDS: methIMAzole 5 MG TABLET PO SCH (06:06)
[2023-04-21] MEDS: FLUTICASONE FUROATE 100MCG 14 PUFFS/INHALER INH SCH (08:12)
[2023-04-21] MEDS: ASPIRIN 81 MG ECTAB PO SCH (08:12)
[2023-04-21] MEDS: UMECLIDINIUM/VILANTEROL 62.5/25MCG 7 PUFFS/INHALER INH SCH (08:12)
[2023-04-21] MEDS: dilTIAZem HCL 180 MG CAPCR PO SCH (08:13)
[2023-04-21] MEDS: ATORVASTATIN 10 MG TAB PO SCH (08:13)
[2023-04-21] MEDS: PANTOprazole 40 MG TAB PO SCH ×2 (08:13→20:36)
[2023-04-21] MEDS: PSYLLIUM or GUAR GUM FIBER POWDER PACKET PO SCH ×2 (08:14→20:41)
[2023-04-21] MEDS: SUCRALFATE 1 GM TAB PO SCH ×2 (08:14→20:38)
[2023-04-21 09:02] LABS: Hematocrit (blood only) 33.5 % (37.0-47.0); Mean Corpuscular Hemoglobin 25.8 pg (25.0-34.0); Mean Corpuscular Hgb Conc 29.9 g/dL (32.0-36.0); Mean Corpuscular Volume 86.6 fL (80.0-100.0); Platelet Count 344 K/uL (130-400); RDW Coefficient of Variation 20.5 % (11.5-14.5); RDW Standard Deviation 64.3 fL (36.4-46.3); Red Blood Count 3.87 M/uL (4.20-5.40); White Blood Count 23.33 K/ul (4.8-10.8)
[2023-04-21 09:17] LABS: BUN Creatinine Ratio 8.9 (10-20); Calcium 8.3 mg/dl (8.6-10.3); Creatinine Clr Calc Pharmacy 56.6 ml/min; Est GFR (African American) 101.3 ml/min; Est GFR (Non-African American) 87.4 ml/min; Potassium 3.6 mmol/L (3.5-5.1)
--- NOTE | 2023-04-21 11:20 | Hospitalist Progress Note ---
Date of Service April 21, 2023 Assessment & Plan (1) Acute gastroenteritis: Plan: Diarrhea has persisted, especially after each meal, this comes with abdominal cramps Biofire was negative, cultures negative so far WBC now beining to trend up again after initially returning to normal CT abd and pelvis showed fluid filled loops of bowel, but no significant change in the hypodense lesions seen on admission CT Continue Metronidazole and Ciprofloxacin Appreciate ID Will consult GI (2) Liver lesion: Plan: Multiple cysts observed. White count is markedly elevated and radiology raised the question of multiple liver abscesses. Continue intravenous Cipro and Flagyl. Infectious disease consultation requested and pending. No recent travel and no recent exposure to contaminated water. I seriously doubt if there liver abscesses I think it is liver cysts as noted in previous imaging. Repeat CT abdomen and pelvis on 04/16 did not show any significant change from the one obtained at admission on 04/14 Consult IR to biopsy the cyst and sent for cultures Hold Apixaban in anticipation of biopsy, hopefully this will happen on Saturday (3) Multiple pulmonary nodules determined by computed tomography of lung: Plan: Multiple lung nodules. Follows up with pulmonology (4) Chronic obstructive pulmonary disease: Plan: Stable. Continue current medical management (5) Atrial fibrillation: Plan: Stable. Continue current medical management with diltiazem and apixaban (6) Chronic renal failure (CRF), stage 3b: Plan: Stable. Monitor intake and output. Avoid nephrotoxic medication (7) Hypertension: Plan: Stable. Continue current medical management (8) Toxic multinodular goiter: Plan: Stable. Continue methimazole therapy (9) Hypokalemia: Plan: Likely due to GI loss Replace Plan Hopeful discharge to home soon after liver biopsy Admission and Anticipated Discharge Date Admission Date: April 15, 2023 Subjective patient seen and examined, complained of epigastric pain and persistent diarrhea, especially after each meal Review of Systems Review of Systems: All systems reviewed are negative, apart from the ones contained in the history. Physical Exam Physical Exam: The patient is awake, alert and oriented 3, well developed and well nourished, normocephalic and atraumatic, lying in bed and in no acute distress. HEENT--PERRL, EOMI, mucous membranes and oropharynx mildly dry Neck--supple. No JVD. No bruits. Thyroid normal, trachea midline, no adenopathy. Heart--normal S1 and S2. No murmurs, rubs or gallops. Lungs--clear bilaterally, no respiratory distress, no accessory muscle use. Abdomen--normal bowel sounds and soft. Mild epigastric and left sided abdominal pain Extremities--no cyanosis or clubbing. No edema. Dermatologic--normal skin turgor, normal color, no abnormal lymph nodes, no rash. Neurologic--cranial nerves II through XII grossly intact. Rheumatologic--normal range of motion. Psychiatric--normal affect. Results & Data Results & Data Vital Signs (Past 12 Hours) Vital Signs Temp Pulse Resp BP Pulse Ox O2 Del Method 04/21/23 07:34 108 H 04/21/23 07:29 Room Air 04/21/23 07:28 98 H 04/21/23 07:27 101 H 04/21/23 07:24 98.2 F 91 H 16 120/64 93 Room Air PG Care Time/CCT Total # of Minutes Spent Total Time Spent with Patient: Total time spent is greater than 50% in coordination of care (as documented) at patient's floor/unit and/or counseling patient: Coding Level of Care Code 18478 SUB INP/OBS CARE 2/35MIN Diagnoses Acute gastroenteritis K52.9 Liver lesion K76.9 Multiple pulmonary nodules determined by computed tomography of lung R91.8 Chronic obstructive pulmonary disease J44.9 Longstanding persistent atrial fibrillation I48.11 Atrial fibrillation type: longstanding persistent Chronic renal failure (CRF), stage 3b N18.32 Essential hypertension I10 Hypertension type: essential hypertension Toxic multinodular goiter E05.20 Hypokalemia E87.6 Time Spent (min) 35 (5) Atrial fibrillation Atrial fibrillation type: longstanding persistent Qualified Code(s): I48.11 - Longstanding persistent atrial fibrillation (7) Hypertension Hypertension type: essential hypertension Qualified Code(s): I10 - Essential (primary) hypertension
[2023-04-21] MEDS: HYOSCYAMINE SULFATE 0.125 MG TAB PO PRN (12:06)
--- NOTE | 2023-04-21 12:50 | Electrocardiogram Report ---
Test Reason : Blood Pressure : / mmHG Vent. Rate : 099 BPM Atrial Rate : 077 BPM P-R Int : 000 ms QRS Dur : 080 ms QT Int : 362 ms P-R-T Axes : 000 052 -11 degrees QTc Int : 464 ms Atrial fibrillation Low voltage QRS Possible Old Anterior infarct (cited on or before 07-AUG-2021) Abnormal ECG When compared with ECG of 17-APR-2023 11:37, No significant change was found Confirmed by Satya Titus ([id number]) on 04/21/2023 12:49:46 PM Referred By: REFERRED SELF Confirmed By:Satya Titus
[2023-04-21] MEDS: cefTRIAXone SODIUM 2,000 MG in DEXTROSE 5 % MINI-B 50 ML IV SCH (15:37)
[2023-04-21] MEDS: ENALAPRIL MALEATE 10 MG TAB PO SCH (20:37)
[2023-04-21] MEDS: LATANOPROST 0.005% OP SOLN 2.5 ML BTL OPB SCH (20:39)
[2023-04-22] MEDS: methIMAzole 5 MG TABLET PO SCH (05:47)
[2023-04-22] MEDS: metroNIDAZOLE 500 MG/100 ML BAG IV SCH ×2 (05:49→14:27)
[2023-04-22 07:29] LABS: Hematocrit (blood only) 28.7 % (37.0-47.0); Hemoglobin 8.6 g/dl (12.0-16.0); Mean Corpuscular Hemoglobin 25.6 pg (25.0-34.0); Mean Corpuscular Volume 85.4 fL (80.0-100.0); Platelet Count 314 K/uL (130-400); RDW Coefficient of Variation 20.3 % (11.5-14.5); RDW Standard Deviation 63.6 fL (36.4-46.3); Red Blood Count 3.36 M/uL (4.20-5.40)
[2023-04-22] MEDS: FLUTICASONE FUROATE 100MCG 14 PUFFS/INHALER INH SCH (07:48)
[2023-04-22] MEDS: ASPIRIN 81 MG ECTAB PO SCH (07:49)
[2023-04-22] MEDS: PSYLLIUM or GUAR GUM FIBER POWDER PACKET PO SCH (07:49)
[2023-04-22] MEDS: dilTIAZem HCL 180 MG CAPCR PO SCH (07:49)
[2023-04-22] MEDS: SUCRALFATE 1 GM TAB PO SCH (07:49)
[2023-04-22] MEDS: ATORVASTATIN 10 MG TAB PO SCH (07:49)
[2023-04-22] MEDS: PANTOprazole 40 MG TAB PO SCH (07:49)
[2023-04-22 08:22] LABS: Calcium 7.9 mg/dl (8.6-10.3); Potassium 2.9 mmol/L (3.5-5.1)
[2023-04-22 08:27] LABS: BUN Creatinine Ratio 13.3 (10-20); Creatinine Clr Calc Pharmacy 70.4 ml/min; Est GFR (African American) 108.9 ml/min
[2023-04-22] MEDS: UMECLIDINIUM/VILANTEROL 62.5/25MCG 7 PUFFS/INHALER INH SCH (09:53)
[2023-04-22] MEDS: ACETAMINOPHEN 325 MG TAB PO PRN (09:55)
--- NOTE | 2023-04-22 10:05 | Gastrointestinal Consultation ---
Date of Consultation April 22, 2023 Assessment & Plan (1) Diarrhea: Plan -Continue Cipro/Flagyl for a total of 10 days. -Diet as tolerated. -Continue supportive care. Thank you for allowing us to participate in the care of this patient. If you have any questions or concerns, please do not hesitate to contact us. Supervising Physician Co-Signing Physician Notes I saw the patient and agree with the findings as documented by LUIZ Quinn History of Present Illness Reason for Consultation: Diarrhea Requesting Physician: Dr. Javed Attending Physician: Eitan Alicia MD History of Present Illness Patient is a 83 y.o. 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 Biofire was negative. She states she has been slowly improving. Still with mucoid diarrhea. Had 2 bms this morning. She states she did eat breakfast this morning without difficulty. No abdominal pain. Leukocytosis is improving. Continues Cipro and Flagyl and antispasmodics. Allergies Allergy/AdvReac Type Severity Reaction Status Date / Time No Known Drug Allergies Allergy Verified 04/11/23 14:49 adhesive tape AdvReac Intermediate PULLS SKIN Verified 04/11/23 14:49 OFF Home Medications Medication Instructions Recorded Confirmed Type latanoprost 0.005 % eye drops 1 drp OPB HS 11/20/18 04/14/23 History (Xalatan) ipratropium 0.5 mg-albuterol 3 mg 3 ml inhalation BID PRN shortness 08/24/21 04/14/23 Rx (2.5 mg base)/3 mL nebulization of breath or wheezing #15 mL soln albuterol sulfate 90 mcg/actuation 2 puff inhalation QID PRN 02/22/22 04/14/23 Rx aerosol inhaler (Ventolin HFA) Shortness Of Breath Or Wheezing #8.5 grams benazepril 20 mg tablet 40 mg (2 x 20 mg) PO QPM #180 tabs 04/25/22 04/14/23 Rx apixaban 2.5 mg tablet (Eliquis) 2.5 mg PO BID 90 days #180 tabs 08/16/22 04/14/23 Rx methimazole 5 mg tablet 5 mg PO DAILYBB #90 tabs 01/03/23 04/14/23 Rx aspirin 81 mg tablet,delayed 81 mg PO DAILY 02/06/23 04/14/23 History release atorvastatin 10 mg tablet 10 mg PO DAILY 03/01/23 04/14/23 History fluticasone fur. 100 mcg-umeclid 1 inh inhalation DAILY #60 ea 03/08/23 04/14/23 Rx 62.5 mcg-vilant 25 mcg inhalat.powder (Trelegy Ellipta) sucralfate 1 gram tablet (Carafate) 1 g PO BID #180 tabs 03/26/23 04/14/23 Rx diltiazem HCl 180 mg capsule,24 180 mg PO DAILY 04/11/23 04/14/23 History hr,extended release pantoprazole 40 mg tablet,delayed 40 mg PO BID 04/14/23 04/14/23 History release Patient History Medical History Osteoporosis Pleural effusion due to congestive heart failure Liver lesion Multiple pulmonary nodules determined by computed tomography of lung Chronic obstructive pulmonary disease TIA (transient ischemic attack) SMAS (superior mesenteric artery syndrome) COHN (dyspnea on exertion) Atrial fibrillation Dx 4-5 years ago; on xarelto; hx cardioversion; follows with Dr. Bi Gunter historian HLD (hyperlipidemia) COPD (chronic obstructive pulmonary disease) Adrenal nodule Pulmonary nodules Vocal cord paralysis, unilateral complete Hyperthyroidism Acid reflux Glaucoma History of uterine cancer dx > 5 years; treated surgically Hypertension Surgical History S/P cholecystectomy History of anesthesia reaction SLOW TO WAKE UP History of esophagogastroduodenoscopy (EGD) History of cataract surgery RT/LEFT History of total abdominal hysterectomy and bilateral salpingo-oophorectomy History of cardioversion History of colonoscopy History of endoscopy Family History Daughter Breast cancer Mother Cancer Uterine cancer Father Heart disease Sister Family history of diabetes mellitus Brother Family history of diabetes mellitus Aunt Family history of diabetes mellitus Aunt Family history of diabetes mellitus Other Family history non-contributory Hypertension No family history of adverse response to anesthesia Denies family history of Colon cancer Ovarian cancer Prostate cancer Myocardial infarction Social History Smoking Status: Former smoker Tobacco Type: Cigarettes Age Started Using Tobacco: 18; Age Quit Using Tobacco: 52; packs per day: 1; Second Hand Exposure: No; Do You Dip or Chew Tobacco: No; Hx Alcohol Use: No Hx Substance Use: No Preferred Language: Vietnamese Communication Ability: Effective Visual Impairment: Partially Limited Hearing Ability: Normal Packing Room Supervisor Required: No Beliefs That Will Affect Care: None marital status: / Current Living Situation: Alone current occupational status: retired How many Children do You have: 3 Feels Safe at Home: Yes Childhood Exposure to Second-Hand Smoke: Yes Diet: regular Diet Comment: regular caffeine: Yes during the past year weight has: remained stable Dental Care, Regularly: No Physical Activity Frequency: 3-4 Times per Week Seatbelt Use: always Sunscreen Use: No Assistive Devices: None Review of Systems Constitutional: no fever and no chills Respiratory: no problem reported Cardiovascular: no problem reported Gastrointestinal: as per Subjective / HPI Physical Exam Constitutional: WD/WN, vitals as above Respiratory: normal respiratory effort, lungs clear to auscultation Cardiovascular: RRR, no murmur, no edema Gastrointestinal (Abdomen): normal bowel sounds, soft, nontender, no hepatosplenomegaly Psychiatric: A+Ox3, euthymic affect Results & Data Vital Signs (Past 12 Hours) Vital Signs Temp Pulse Resp BP Pulse Ox O2 Del Method 04/22/23 07:43 36.6 C 90 16 118/68 94 Room Air Diagnostic Findings Laboratory Results WBC 16.10 K/ul (4.8-10.8) H 04/22/23 06:42 RBC 3.36 M/uL (4.20-5.40) L 04/22/23 06:42 Hgb 8.6 g/dl (12.0-16.0) L 04/22/23 06:42 Hct 28.7 % (37.0-47.0) L 04/22/23 06:42 MCV 85.4 fL (80.0-100.0) 04/22/23 06:42 MCH 25.6 pg (25.0-34.0) 04/22/23 06:42 MCHC 30.0 g/dL (32.0-36.0) L 04/22/23 06:42 RDW Std Deviation 63.6 fL (36.4-46.3) H 04/22/23 06:42 RDW Coeff of Rosio 20.3 % (11.5-14.5) H 04/22/23 06:42 Plt Count 314 K/uL (130-400) 04/22/23 06:42 MPV 10.0 fL (9.4-12.4) 04/22/23 06:42 Immature Gran % (Auto) 0.8 % 04/14/23 22:12 Neut % (Auto) 86.6 % 04/14/23 22:12 Lymph % (Auto) 2.8 % 04/14/23 22:12 [place] % (Auto) 8.9 % 04/14/23 22:12 Eos % (Auto) 0.5 % 04/14/23 22:12 Baso % (Auto) 0.4 % 04/14/23 22:12 Neut # (Auto) 31.04 K/uL (1.40-6.50) H 04/14/23 22:12 Lymph # (Auto) 1.02 K/uL (1.20-3.40) L 04/14/23 22:12 Forest # (Auto) 3.18 K/uL (0.11-0.59) H 04/14/23 22:12 Eos # (Auto) 0.18 K/uL (0.00-0.50) 04/14/23 22:12 Baso # (Auto) 0.13 K/uL (0.00-0.20) 04/14/23 22:12 Immature Gran # (Auto) 0.27 K/uL (0.01-0.20) H 04/14/23 22:12 Anisocytosis Present 04/14/23 22:12 Sodium 141 mmol/L (136-145) 04/22/23 06:42 Potassium 2.9 mmol/L (3.5-5.1) L 04/22/23 06:42 Chloride 108 mmol/L (98-107) H 04/22/23 06:42 Carbon Dioxide 27 mmol/L (21-32) 04/22/23 06:42 Anion Gap 6 (3-11) 04/22/23 06:42 BUN 6 mg/dl (6-23) 04/22/23 06:42 Creatinine 0.45 mg/dl (0.6-1.2) L 04/22/23 06:42 Est Cr Clr Drug Dosing 70.4 ml/min 04/22/23 06:42 Est GFR ( Amer) 108.9 ml/min 04/22/23 06:42 Est GFR (Non-Af Amer) 94.0 ml/min 04/22/23 06:42 BUN/Creatinine Ratio 13.3 (10-20) 04/22/23 06:42 Glucose 68 mg/dl (70-99(Fasting)) L 04/22/23 06:42 Lactate 1.9 mmol/L (0.4-2.0) 04/14/23 22:12 Calcium 7.9 mg/dl (8.6-10.3) L 04/22/23 06:42 Magnesium 2.2 mg/dl (1.7-2.4) 04/16/23 05:57 Total Bilirubin 0.2 mg/dl (0.2-1.0) 04/18/23 05:21 Direct Bilirubin 0.1 mg/dl (0-0.2) 04/14/23 22:12 AST 11 U/L (13-39) L 04/18/23 05:21 ALT 10 U/L (7-52) 04/18/23 05:21 Alkaline Phosphatase 66 U/L (34-104) 04/18/23 05:21 Troponin I High Sens 14.4 pg/ml (0-14) H 04/17/23 06:02 Total Protein 4.8 gm/dl (6.0-8.3) L 04/18/23 05:21 Albumin 2.4 gm/dl (3.4-5.0) L 04/18/23 05:21 Globulin 2.4 gm/dl (2.5-4.0) L 04/18/23 05:21 Albumin/Globulin Ratio 1.0 (0.9-2) 04/18/23 05:21 Procalcitonin 0.11 ng/ml (0-0.5) 04/14/23 22:12 TSH 4.070 uIu/ml (0.300-4.500) 04/14/23 22:12 Urine Color Yellow 04/15/23 00:15 Urine Appearance Clear (Clear) 04/15/23 00:15 Urine pH 5.5 (4.5-7.5) 04/15/23 00:15 Ur Specific [place] 1.014 (1.000-1.030) 04/15/23 00:15 Urine Protein Negative (Negative) 04/15/23 00:15 Urine Glucose (UA) Negative (Negative) 04/15/23 00:15 Urine Ketones Negative (Negative) 04/15/23 00:15 Urine Blood Negative (Negative) 04/15/23 00:15 Urine Nitrite Negative (Negative) 04/15/23 00:15 Urine Bilirubin Negative (Negative) 04/15/23 00:15 Urine Urobilinogen Negative (Negative) 04/15/23 00:15 Ur Leukocyte Esterase Negative (Negative) 04/15/23 00:15 Stl C. cayetanensis PCR Not Detected (NotDetected) 04/15/23 06:00 Stool Rotavirus A PCR Not Detected (NotDetected) 04/15/23 06:00 Stl Adenov F 40/41 PCR Not Detected (NotDetected) 04/15/23 06:00 Stool Astrovirus (PCR) Not Detected (NotDetected) 04/15/23 06:00 Stool Campylobacter PCR Not Detected (NotDetected) 04/15/23 06:00 Stl C. diff Tox B Gene Negative Cdiff Gene (Neg) 04/15/23 06:00 Stool Cryptosporidium PCR Not Detected (NotDetected) 04/15/23 06:00 Stl E.coli Shiga Tox PCR Not Detected (NotDetected) 04/15/23 06:00 Stl Enterotoxigenic E PCR Not Detected (NotDetected) 04/15/23 06:00 Stool EPEC (PCR) Not Detected (NotDetected) 04/15/23 06:00 Stool EAEC (PCR) Not Detected (NotDetected) 04/15/23 06:00 Stl E. histolytica PCR Not Detected (NotDetected) 04/15/23 06:00 Stool Giardia Lamblia PCR Not Detected (NotDetected) 04/15/23 06:00 Stool Salmonella PCR Not Detected (NotDetected) 04/15/23 06:00 Stool Sapovirus (PCR) Not Detected (NotDetected) 04/15/23 06:00 Stl P. shigelloides PCR Not Detected (NotDetected) 04/15/23 06:00 Stl Shigella/EIEC PCR Not Detected (NotDetected) 04/15/23 06:00 St Y.enterocolitica PCR Not Detected (NotDetected) 04/15/23 06:00 Stool Vibrio (PCR) Not Detected (NotDetected) 04/15/23 06:00 Stl Vibrio cholerae PCR Not Detected (NotDetected) 04/15/23 06:00 Stl Norovirus GI/GII PCR Not Detected (NotDetected) 04/15/23 06:00 Adenovirus (PCR) Not Detected (NotDetected) 04/14/23 22:13 B. pertussis DNA (PCR) Not Detected (NotDetected) 04/14/23 22:13 B.parapertussis DNA PCR Not Detected (NotDetected) 04/14/23 22:13 C. pneumoniae DNA (PCR) Not Detected (NotDetected) 04/14/23 22:13 Coronavirus OC43 (PCR) Not Detected (NotDetected) 04/14/23 22:13 Coronavirus HKU1 (PCR) Not Detected (NotDetected) 04/14/23 22:13 Coronavirus 229E (PCR) Not Detected (NotDetected) 04/14/23 22:13 SARS-CoV-2 (PCR) Not Detected (NotDetected) 04/14/23 22:13 Coronavirus NL63 (PCR) Not Detected (NotDetected) 04/14/23 22:13 Hepatitis A Ab Total Cancelled 04/19/23 16:13 Human Metapneumovir PCR Not Detected (NotDetected) 04/14/23 22:13 Influenza Type A (PCR) Not Detected (NotDetected) 04/14/23 22:13 Influenza Type B (PCR) Not Detected (NotDetected) 04/14/23 22:13 M. pneumoniae (PCR) Not Detected (NotDetected) 04/14/23 22:13 Parainfluenza 1 (PCR) Not Detected (NotDetected) 04/14/23 22:13 Parainfluenza 2 (PCR) Not Detected (NotDetected) 04/14/23 22:13 Parainfluenza 3 (PCR) Not Detected (NotDetected) 04/14/23 22:13 Parainfluenza 4 (PCR) Not Detected (NotDetected) 04/14/23 22:13 RSV (PCR) Not Detected (NotDetected) 04/14/23 22:13 Entero/Rhino (PCR) Not Detected (NotDetected) 04/14/23 22:13 Miscellaneous Test REPORT 04/19/23 18:51 Impressions Chest X-Ray 04/14/23 21:36 SINGLE VIEW CHEST CLINICAL HISTORY: Sepsis. FINDINGS: An AP, portable, upright chest radiograph is compared to study dated 03/10/2023 and correlated with chest CT scans dated 01/21/2023 and 04/15/2023. The examination is degraded by portable technique and apical lordotic positioning. The heart is enlarged noting atherosclerotic calcification of the thoracic aorta. The pulmonary vasculature is noncongested. Emphysema and chronic interstitial thickening is similar to previous. A 1.1 cm irregular opacity is suggested in the right upper lobe. There is bibasilar scarring/atelectasis. No airspace consolidation or large pleural effusion is identified. No pneumothorax is seen. The skeletal structures are osteopenic. The bony thorax is grossly intact. IMPRESSION: 1. Cardiomegaly and emphysema with no acute cardiopulmonary abnormality identified. 2. A 1.1 cm irregular opacity projects over the right upper lobe. A second 1.6 cm left lower lobe spiculated opacity seen on today's chest CT is not visualized by x-ray. Although these may be on an infectious/inflammatory basis, a follow-up chest CT in 2-3 months time is recommended for reassessment. ACT 112: Positive. There are findings on this exam that require communication between the performing entity and the patient following Patient Test Result Information Act ([place] Act 112) guidelines. Electronically signed by: James Coy M.D. 04/15/2023 8:06 AM Chest CTA 04/14/23 22:39 Exam(s): CTA CHEST EXAM: CT Angiography Chest With Intravenous Contrast CLINICAL HISTORY: Reason for exam: PE, sepsis. TECHNIQUE: Axial computed tomographic angiography images of the chest with intravenous contrast. Automated exposure control was utilized for the study. A dose lowering technique was utilized adhering to the principles of ALARA. MIP reconstructed images were created and reviewed. COMPARISON: No relevant prior studies available. FINDINGS: Pulmonary arteries: Unremarkable. No CT evidence of pulmonary embolism. Aorta: No acute findings. No thoracic aortic aneurysm. 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 Lungs: Centrilobular emphysema. No mass. No consolidation. Pleural space: Tiny left pleural effusion. Bronchial wall thickening and opacification of the left lower lobe bronchials with patchy pulmonary opacities concerning for an infectious etiology. No pneumothorax. Heart: Unremarkable. No cardiomegaly. No significant pericardial effusion. No evidence of RV dysfunction. Bones/joints: No acute fracture. No dislocation. Soft tissues: Unremarkable. Lymph nodes: Unremarkable. No enlarged lymph nodes. IMPRESSION: 1. No CT evidence of pulmonary embolism. 2. Bronchial wall thickening and opacification of the left lower lobe bronchials with patchy pulmonary opacities concerning for an infectious etiology. Electronically signed by: Alfonso Vasquez M.D. 04/15/23 01:36 AM Abdomen/Pelvis CT 04/16/23 13:[address] WITHOUT CONTRAST CT DOSE: 559.72 mGy.cm HISTORY: follow up of liver cysts TECHNIQUE: Multiaxial CT images of the abdomen and pelvis were performed without contrast. A dose lowering technique was utilized adhering to the principles of ALARA. COMPARISON STUDY: Abdomen and pelvis CT 04/15/2023 and 01/23/2023. FINDINGS: Small bilateral pleural effusions have increased in size in the interval. Linear density within the lower lobes posteriorly favor compressive atelectasis. No pneumoperitoneum. No pneumatosis. Postoperative changes again noted within the proximal left femur. Levoscoliosis and degenerative changes within the lumbar spine. Coronary artery calcifications are noted. The heart remains mildly enlarged. There is mild to moderate body wall edema. Multiple scattered round hypodense lesions seen throughout the liver. These are similar to the prior study. Dominant lesion within the right hepatic dome measures 2.5 cm. Additional heterogeneous areas within the liver are better appreciated on the recent contrast-enhanced CT. Prior cholecystectomy. The unenhanced pancreas, spleen, and right adrenal gland are unremarkable. There is a stable 1.6 cm left adrenal gland nodule. Calcifications in the renal sinuses are likely vascular. Stable 9 mm angiolipoma within the right kidney. Additional hypo and hyperdense bilateral renal lesions are stable in size. These are incompletely characters on this noncontrast study but likely represent hyperdense and simple cyst. No retroperitoneal lymphadenopathy. Calcified plaque within the normal caliber abdominal aorta. 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 There is mild fat stranding surrounding the graft which remains unchanged. No pelvic lymphadenopathy or pelvic free fluid. Residual contrast within the urinary bladder. No bladder wall thickening. Prior hysterectomy. Mild pelvic floor collapse. Nondilated fluid-filled loops of large or small bowel seen throughout the abdomen. This suggests a gastroenteritis/diarrheal illness. No evidence for bowel obstruction. No bowel wall thickening identified. Normal appendix. 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 IMPRESSION: 1. No significant change in the scattered indeterminate round hypodense lesions within the liver with the largest in the right hepatic lobe measuring 2.5 cm. 2. Fluid-filled nondilated loops of large or small bowel seen throughout the abdomen. This favors a gastroenteritis/diarrheal illness. 3. Increase in size in the small bilateral pleural effusions. 4. Mild to moderate body wall edema. 5. Additional findings as described above. ACT 112: Negative or not required by law. Electronically signed by: Leonard Lucia M.D. 04/16/2023 3:17 PM PG Care Time/CCT Total # of Minutes Spent Total Time Spent with Patient: Total time spent is greater than 50% in coordination of care (as documented) at patient's floor/unit and/or counseling patient: Coding Level of Care Code 23706 INT INP/OBS CARE 3/75MIN Diagnoses Diarrhea of presumed infectious origin R19.7 Diarrhea type: presumed infectious (1) Diarrhea Diarrhea type: presumed infectious Qualified Code(s): R19.7 - Diarrhea, unspecified
[2023-04-22] MEDS ORDERED: POTASSIUM CHLORIDE CRTAB 20 MEQ TABCR PO SCH (10:15)
--- NOTE | 2023-04-22 12:06 | Infectious Disease Progress Nt ---
Date of Service April 22, 2023 Assessment & Plan (1) Liver abscess: (2) Acute gastroenteritis: (3) Aspiration pneumonitis: (4) Liver lesion: (5) Diarrhea: Plan Lakeshia Junior is an 83-year-old woman with history of Afib on anticoagulation, HTN, COPD who presents to [facility] on 04/15/23 with diarrhea, nausea, fever, and generalized weakness 1 day, found on CT A/P to have multiple liver cysts vs. possible hepatic abscesses. ID is consulted for evaluation of possible liver abscesses. Broad ddx for liver lesions, which includes infection (bacterial, mycobacterial, fungal, parasitic) and noninfectious (malignancy i/s/o cirrhosis?). Some of these lesions were present on prior imaging studies (note 01/23/21 showing lesions that were new since 06/08/22) yet these are further increasing in quantity. It is not clear that these are infectious, though the appearance of some of the lesions was potentially suggestive of liver abscess. Cirrhotic morphology noted on 09/27/22 RUQUS. GI had evaluated the patient in 09/2022 and 02/2023 and were aware of these findings. 01/13/23 with negative HCV Ab, +Hep A IgM positive, and HbsAg/cIgM neg. It is unclear that hep A would explain these findings but can repeat hep A Ab. Would consider obtaining repeat RUQUS. Current plan for IR drainage/biopsywould send infectious studies as below, as well as path. In consideration of possible liver abscesses, patient without travel outside the country, no animal exposure, no well water, no known exposure to TB. Considered hepatobiliary source although no jennifer-dil on CT. Interestingly, she did report eating beef liver (cooked, from grocery store) which was accompanied by acute diarrheal illness and imaging suggestive of colitis as well. 04/15 stool pathogen PCR panel negative including C. diff. Her fevers and leukocytosis may be due to an acute illness and it is unclear whether these are related to her liver lesions. Consider whether they could be from ongoing GI translocation and if so would consider colonoscopy. Liver lesions c/w parasitic infection such as Entamoeba or Echinococcus. Would expect solitary lesion and less acute presentation with Entamoeba, radiographic appearance not suggestive of Echinococcal cyst and without animal exposure risk factors. Laura can cause liver abscesses as well, though tentatively improving without antifungals. Given her the severity of her initial presentation, would be reasonable to continue antibiotics. Can continue ceftriaxone and metronidazole for now. Of note, CT chest with bronchial wall thickening and LLL opacification, but without significant respiratory symptoms. May be aspiration in the setting of n/v. Would continue to monitor. ID Problem List: 1.Possible hepatic abscess 2.Leukocytosis 3.Diarrhea 4.Possible aspiration pneumonitis. Recommendations: - Continue ceftriaxone 2g IV Q24H - Continue metronidazole 500 mg IV Q8H - Consider obtaining RUQUS - Repeat hepatitis A Ab - F/u IR/CT-guided liver biopsy/drainage. If so, would send for bacterial & fungal Gram stain & cx, AFB cx, path (with fungal and AFB stain) - Appreciate GI consultation, would consider outpatient colonoscopy ID will continue to follow. Yashira Reilly MD, S Infectious Diseases [facility] [place] [facility]/ID Connect ID Connect direct line: [phone] Admission and Anticipated Discharge Date Admission Date: April 15, 2023 Subjective This patient recommendation is based on a telemedicine consult request which was completed asynchronously through chart review and information provided by the primary physician. The patient was not seen or examined today. The evaluation is consultative in nature and all patient care and treatment decisions can either be accepted or rejected by the patient's primary hospital-based treating physician using their own independent medical judgment for their patient. Time Spent Reviewing Chart: 31+ minutes - Afebrile - WBC 16 - Liver biopsy tentatively today Results & Data Vital Signs (Past 12 Hours) Vital Signs Temp Pulse Resp BP Pulse Ox O2 Del Method 04/22/23 07:43 36.6 C 90 16 118/68 94 Room Air Diagnostic Findings Diagnostics: 04/16/21 CT A/P Multiple scattered round hypodense lesions seen throughout the liver. These are similar to the prior study. Dominant lesion within the right hepatic dome measures 2.5 cm. Additional heterogeneous areas within the liver are better appreciated on the recent contrast-enhanced CT. Prior cholecystectomy. 1. No significant change in the scattered indeterminate round hypodense lesions within the liver with the largest in the right hepatic lobe measuring 2.5 cm. 2. Fluid-filled nondilated loops of large or small bowel seen throughout the abdomen. This favors a gastroenteritis/diarrheal illness. 3. Increase in size in the small bilateral pleural effusions. 4. Mild to moderate body wall edema. 5. Additional findings as described above. 04/14 CTA chest FINDINGS: Pulmonary arteries: Unremarkable. No CT evidence of pulmonary embolism. Aorta: No acute findings. No thoracic aortic aneurysm. 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 Lungs: Centrilobular emphysema. No mass. No consolidation. Pleural space: Tiny left pleural effusion. Bronchial wall thickening and opacification of the left lower lobe bronchials with patchy pulmonary opacities concerning for an infectious etiology. No pneumothorax. Heart: Unremarkable. No cardiomegaly. No significant pericardial effusion. No evidence of RV dysfunction. Bones/joints: No acute fracture. No dislocation. Soft tissues: Unremarkable. Lymph nodes: Unremarkable. No enlarged lymph nodes. 1. No CT evidence of pulmonary embolism. 2. Bronchial wall thickening and opacification of the left lower lobe bronchials with patchy pulmonary opacities concerning for an infectious etiology. 04/14 CT A/P Liver: Markedly abnormal liver with approximately 15 new cystic lesions in bilateral lobes of the liver with the largest measuring up to 2.2 cm in the right lobe with surrounding edema. Findings are concerning for intrahepatic abscesses. The underlying liver parenchyma is also diffusely abnormal with a striated appearance to the liver parenchyma concerning for diffuse edema. thickening. IMPRESSION: Markedly abnormal liver with approximately 15 new cystic lesions in bilateral lobes of the liver with the largest measuring up to 2.2 cm in the right lobe with surrounding edema. Findings are concerning for intrahepatic abscesses. The underlying liver parenchyma is also diffusely abnormal with a striated appearance to the liver parenchyma concerning for diffuse edema. No evidence of biliary dilatation. Micro Summary: 04/15 UA neg for nitrites and LE 04/15 stool PCR panel negative 04/14 BCx x2: NGTD 04/14 RVP neg Prior 03/10/23 RVP SARS-CoV-2 detected 12/28/22 UCx: E. faecalis 01/23/23 hepatitis B: HBsAg neg, cIgM neg 01/23/23 hep A IgM reactive 01/23/23 HCV Ab negative Antibiotic Summary: ceftriaxone (04/17-present) metronidazole (04/14-present) Prior ciprofloxacin (04/15-04/17) vancomycin (04/14) pip-tazo (04/14) (5) Diarrhea Diarrhea type: presumed infectious Qualified Code(s): R19.7 - Diarrhea, unspecified
[2023-04-22] MEDS: HYOSCYAMINE SULFATE 0.125 MG TAB PO PRN (14:57)
[2023-04-22] MEDS ORDERED: DIPHENOXYLATE/ATROPINE 2.5/0.025MG TAB PO STA (16:12)
--- NOTE | 2023-04-22 16:17 | Discharge Summary ---
Date of Service April 22, 2023 Admission HPI Per Admitting Provider This is an 83-year-old female with a history of atrial fibrillation on anticoagulation, hypertension, COPD who presents to the hospital today with complaints of diarrhea nausea fever and generalized weakness of 1 day duration. Patient states she was in her usual state of health until yesterday when she developed profuse diarrhea with up to 7-8 episodes a day associated with chills and generalized weakness. She denies eating anything unusual and denies exposure to any person with acute diarrhea. He here in the emergency department WBC was 35,000 BMP was within normal limits. CT scan of the abdomen pelvis was done official read is pending. Stool studies have been obtained she has been empirically started on IV antibiotics and will be admitted to the hospital further management. Principal Diagnosis Suspected viral gastroenteritis, benign liver cyst, hypokalemia Discharge Exam General-alert and oriented x3, no fevers, no chills HEENT-head atraumatic and normocephalic, pupils equal and reactive to light, extraocular muscles intact Neck-no lymphadenopathy or thyromegaly, trachea midline Chest-clear to auscultation percussion. No rales wheezing or rhonchi Cardiac-regular rate and rhythm, normal S1 and S2 Abdomen-normal bowel sounds, nontender, no hepatosplenomegaly Extremities-no cyanosis, clubbing, or edema Neuro-cranial nerves II through XII intact, motor and sensory function within normal limits, strength symmetrical, no focal deficits Psych-normal affect, normal mood Discharge Data Allergies Allergy/AdvReac Type Severity Reaction Status Date / Time No Known Drug Allergies Allergy Verified 04/11/23 14:49 adhesive tape AdvReac Intermediate PULLS SKIN Verified 04/11/23 14:49 OFF Consultations 04/15/23 00:22 ED Decision to Admit Stat 04/15/23 08:12 Consult Infectious Diseases Routine 04/21/23 11:18 Consult Gastroenterology Routine Ordered Studies 04/14/23 21:36 CT Abd and Pelvis [CT abd pelvis IV con only] Stat 04/14/23 22:39 CT angio chest PE protocol Stat 04/16/23 13:01 CT Abd and Pelvis [CT abd pelvis wo con] Routine 04/16/23 13:[address] Routine IR biopsy liver CT Routine Hospital Course (1) Acute gastroenteritis: Appears to be viral. No evidence of bacterial infection. No indication for antibiotics. Stool studies are negative so far. She continues to have some diarrhea and this will be treated symptomatically with Lomotil. (2) Liver lesion: She has known liver cysts. Interventional radiology does not feel the biopsy is necessary, neither do I. White blood cell count appears to be chronically elevated and should be pursued as an outpatient. Antibiotics have been discontinued. Eliquis has been restarted. Infectious disease consultation appreciated. (3) Multiple pulmonary nodules determined by computed tomography of lung: Multiple benign lung nodules. Follows up with pulmonology (4) Chronic obstructive pulmonary disease: Stable. Continue current medical management (5) Atrial fibrillation: Stable. Continue current medical management with diltiazem and apixaban (6) Chronic renal failure (CRF), stage 3b: Stable. Monitor intake and output. Avoid nephrotoxic medication (7) Hypertension: Stable. Continue current medical management (8) Toxic multinodular goiter: Stable. Continue methimazole therapy (9) Hypokalemia: Corrected with oral potassium replacement. Plan Home today, April 22 Total Time Total Time Spent Total Time Spent (In Minutes): 45 minutes Discharge Plan Discharge Items Patient Disposition: Home - Self-Care Reason For Visit: ACUTE GASTROENTERITIS Discharge Diagnosis: Suspected viral enteritis with diarrhea multiple benign liver cysts, hypokalemia Condition on Discharge: Good Activity: Resume your previous activity Non-emergency contact: Primary Care Provider Call non-emergency contact if: you have any medication questions and your symptoms worsen Follow-up/Referrals: Carlton Mendez III, CRNP [Primary Care Provider] - Diet: Regular and Heart Healthy Addtl Attending Provider Instructions: Take [id number] Lomotil as needed for diarrhea. Avoid milk products until diarrhea resolves. PCP will consider referral to e/m engineer for evaluation of persistently elevated white blood cell count. Take potassium as directed. Pending Studies at Discharge: No Stand-Alone Forms: [employer], Smoking Cessation Medications and DC Order Prescriptions: New potassium chloride 20 mEq Tablet,Er Particles/Crystals 10 meq PO BID Qty: 6 0RF Continued ipratropium-albuterol 0.5 mg-3 mg(2.5 mg base)/3 mL solution for nebulization 3 ml inhalation BID PRN (Reason: shortness of breath or wheezing) Qty: 15 1RF Rx Instructions: INHALE 3 ML INHALATION TWICE A DAY NEEDED FOR SHORTNESS OF BREATH OR WHEEZING benazepril 20 mg tablet 40 mg PO QPM Qty: 180 3RF methimazole 5 mg tablet 5 mg PO DAILYBB Qty: 90 1RF Trelegy Ellipta 100-62.5-25 mcg blister with device 1 inh inhalation DAILY Qty: 60 2RF sucralfate [Carafate] 1 gram tablet 1 g PO BID Qty: 180 3RF Rx Instructions: mix one tablet with 15mls of water to make slurry then drink twice a day. Eliquis 2.5 mg tablet 2.5 mg PO BID 90 Days Qty: 180 3RF diltiazem HCl 180 mg capsule,extended release 24 hr 180 mg PO DAILY atorvastatin 10 mg tablet 10 mg PO DAILY albuterol sulfate [Ventolin HFA] 90 mcg/actuation HFA aerosol inhaler 2 puff INHALATION QID PRN (Reason: Shortness Of Breath Or Wheezing) Qty: 8.5 1RF aspirin 81 mg tablet,delayed release (DR/EC) 81 mg PO DAILY latanoprost [Xalatan] 0.005 % drops 1 drp OPB HS pantoprazole 40 mg tablet,delayed release (DR/EC) 40 mg PO BID Rx Instructions: TAKE 1 TABLET BY MOUTH TWICE A DAY Discharge Orders: Discharge Order (Routine); Ordered 04/22/23 Ordered By: Eitan Alicia Admission Data Admit Date/Time: 04/15/23 00:55 Attending Provider: Eitan Alicia Admit Provider: Montana Javed Primary Care Provider: Carlton Mendez III Other Providers: Montana Javed; Cinthya Arellano; Mario Kolb; Kacey Bell; Dean Salvador; Kalie Ling; Thelma Zuniga; Laura Ramos; Neftaly Lainez; Swati Hi; Yashira Reilly; Elva Bhardwaj Jr Coding Level of Care Code 72756 INP/OBS DISCH >30 MIN Diagnoses Acute gastroenteritis K52.9 Liver lesion K76.9 Multiple pulmonary nodules determined by computed tomography of lung R91.8 Chronic obstructive pulmonary disease J44.9 Longstanding persistent atrial fibrillation I48.11 Atrial fibrillation type: longstanding persistent Chronic renal failure (CRF), stage 3b N18.32 Essential hypertension I10 Hypertension type: essential hypertension Toxic multinodular goiter E05.20 Hypokalemia E87.6
[2023-04-22] MEDS ORDERED: APIXABAN 2.5 MG TAB PO SCH (21:00)
--- NOTE | 2023-04-25 12:25 | Coding Query ---
To promote full compliance with coding requirements relating to patient care, provider participation is requested in all cases of payroll administrative assistant uncertainty. Please assist us with the question(s) below: Coding Question(s): The diagnosis(es) below was documented in the chart, then subsequently fell off all further documentation on the Discharge Summary. Please indicate if it is still a possible diagnosis or ruled out. Physician's Response(s): POSSIBLE HEPATIC ABSCESS (documented on the ER, H&P, and 04/15 Hospitalist Progress Note, and in the ID Consult and ID Progress Notes, and the 04/16 - 04/21 Hospitalist Progress Notes document, "I seriously doubt if there liver abscesses I think it is liver cysts as noted in previous imaging"): ( ) Diagnosed and POA ( ) Diagnosed and not POA ( x ) Ruled out ( ) Other (please specify) POSSIBLE ASPIRATION PNEUMONIA (documented in the ID Consult and ID Progress Notes) ( ) Diagnosed and POA ( ) Diagnosed and not POA (x ) Ruled out ( ) Other (please specify) CAP (community acquired pneumonia) - (documented on ER) ( ) Diagnosed and POA ( ) Diagnosed and not POA ( x ) Ruled out ( ) Other (please specify) MTDD
== END 2023-04-22 17:45 | disposition home or self-care (01) | DRG 392 ==
LOC: ED 21:22 → 3E 04-15 00:55 → SUATTDRO 04-15 00:55 → 3E 04-15 02:36

== ENCOUNTER 2023-05-09 12:55 | Inpatient (IN) ==
[2023-05-09] MEDS ORDERED: MoRPHine SULFATE 4 MG/ML 1 ML CARP\\VIAL IV STA ×3 (13:05→20:59)
[2023-05-09] MEDS ORDERED: SODIUM CHLORIDE 0.9% 500 ML IV STA (13:05)
[2023-05-09] MEDS ORDERED: ONDANSETRON INJ 2 MG/ML 2 ML VIAL IV STA (13:05)
--- NOTE | 2023-05-09 13:08 | Emergency Department Note ---
Impression & Plan Abdominal pain ADMIT ED Provider Note HPI: History obtained from patient. The patient is a 83-year-old female with history of chronic mesenteric ischemia, atrial fibrillation, currently on Eliquis, who presents emergency department chief complaint of upper abdominal pain and nausea that has been ongoing since last night. Patient states she had an episode of vomiting last night as well. On arrival here to the ED the patient is in mild distress secondary to upper abdominal pain and nausea. She is actively dry heaving. Patient is otherwise hemodynamically stable on arrival. ROS: - Per HPI Differential Diagnosis: Viral gastroenteritis, small bowel obstruction, mesenteric ischemia, acute cholecystitis, diverticulitis with flare, amongst other potential pathologies. *Outpatient medications and allergy history reviewed. PE: General: Alert HEENT: Normocephalic, trachea midline Eyes: Extraocular eye movement is intact, no scleral erythema Pulmonary: Clear to auscultation bilaterally, no wheezing Cardio: Regular rate with irregular rhythm GI: Abdomen is with mild distention, tender to palpation over the upper abdomen without guarding or rigidity : No suprapubic tenderness MSK: No evidence of trauma or malformation of the extremities, no edema Skin: No evidence of rash Neuro: Alert, no focal deficits Psychiatric: Cooperative INDEPENDENT INTERPRETATIONS: lunchroom monitor: (As interpreted by myself): - An order was placed for continuous cardiac monitoring - Patient was noted to be in atrial fibrillation with a rate of 70 EKG: (As interpreted by myself): Rate: 93 Rhythm: Atrial fibrillation Intervals: Within normal limits ST changes: No ST elevation Time: 1302 Interventions provided in ED: -IV morphine, IV Zofran, IV fluid bolus Medical Decision Making: IV was established and lab work obtained, patient was placed on conveyor monitor. Patient was given IV morphine, IV Zofran, and IV fluids for her symptoms. Lab work shows a leukocytosis that is acute on chronic in nature, today at 39.9, hemoglobin is near baseline at 10.0, platelet count is normal, CMP does not show any critical findings, troponin is negative x 1, EKG shows atrial fibrillation that is rate controlled and without acute ischemic changes. CT imaging of the abdomen and pelvis with contrast shows numerous fluid-filled loops of small bowel consistent with a likely enteritis. There is some mesenteric edema. 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 Patient's lactic acid is noted to be within normal limits. Low suspicion for acute occlusion/acute bowel ischemia. On my reassessment the patient states her pain is improved but she still does have some mild mid abdominal pain. Given her worsening leukocytosis beyond baseline in addition to abdominal pain with large fluid-filled loops on CT imaging I feel that she would benefit from admission for symptomatic management. Patient is in agreement. Case was discussed with the on-call hospitalist, Dr. Sawyer, and the patient was placed for admission in stable condition. Consultants/Discussions held with other healthcare providers: -Hospitalist, Dr. Sawyer Disposition discussion held by myself with: -Patient Diagnosis: 1. Abdominal pain, acute 2. Nausea and vomiting, acute 3. Leukocytosis, acute on chronic 4. Chronic mesenteric ischemia Disposition: Admission Tam Wise DO Emergency Medicine Past Med/Surg History Medical History COVID-19 Aspiration pneumonitis Leukocytosis (leucocytosis) Chronic renal failure (CRF), stage 3b Toxic multinodular goiter Hypertension Atrial fibrillation Osteoporosis Pleural effusion due to congestive heart failure Liver lesion Multiple pulmonary nodules determined by computed tomography of lung Chronic obstructive pulmonary disease TIA (transient ischemic attack) SMAS (superior mesenteric artery syndrome) COHN (dyspnea on exertion) Atrial fibrillation Poor historian HLD (hyperlipidemia) COPD (chronic obstructive pulmonary disease) Adrenal nodule Pulmonary nodules Vocal cord paralysis, unilateral complete Hyperthyroidism Acid reflux Glaucoma History of uterine cancer Hypertension Surgical History S/P cholecystectomy History of anesthesia reaction History of esophagogastroduodenoscopy (EGD) History of cataract surgery History of total abdominal hysterectomy and bilateral salpingo-oophorectomy History of cardioversion History of colonoscopy History of endoscopy Family History Daughter Breast cancer Mother Cancer Uterine cancer Father Heart disease Sister Family history of diabetes mellitus Brother Family history of diabetes mellitus Aunt Family history of diabetes mellitus Aunt Family history of diabetes mellitus Other Family history non-contributory Hypertension No family history of adverse response to anesthesia Denies family history of Colon cancer Ovarian cancer Prostate cancer Myocardial infarction Social History Smoking Status: Never smoker Tobacco Type: Cigarettes Age Started Using Tobacco: 18; Age Quit Using Tobacco: 52; packs per day: 1; Second Hand Exposure: No; Do You Dip or Chew Tobacco: No; Hx Alcohol Use: No Hx Substance Use: No Preferred Language: Italian Communication Ability: Effective Visual Impairment: Partially Limited Hearing Ability: Normal Engineering Instructor Required: No Beliefs That Will Affect Care: None marital status: / Current Living Situation: Alone current occupational status: retired How many Children do You have: 3 Feels Safe at Home: Yes Childhood Exposure to Second-Hand Smoke: Yes Diet: regular Diet Comment: regular caffeine: Yes during the past year weight has: remained stable Dental Care, Regularly: No Physical Activity Frequency: 3-4 Times per Week Seatbelt Use: always Sunscreen Use: No Assistive Devices: None Allergies Allergies Allergy/AdvReac Type Severity Reaction Status Date / Time No Known Drug Allergies Allergy . Verified 05/09/23 16:13 adhesive tape AdvReac Intermediate PULLS SKIN Verified 05/09/23 16:13 OFF Home Meds Home Medications Medication Instructions Recorded Confirmed latanoprost 0.005 % eye drops 1 drp OPB HS 11/20/18 05/09/23 (Xalatan) aspirin 81 mg tablet,delayed 81 mg PO DAILY 02/06/23 05/09/23 release atorvastatin 10 mg tablet 10 mg PO DAILY 03/01/23 05/09/23 diltiazem HCl 180 mg capsule,24 180 mg PO DAILY 04/11/23 05/09/23 hr,extended release pantoprazole 40 mg tablet,delayed 40 mg PO BID 04/14/23 05/09/23 release diphenoxylate-atropine 2.5 1 tab PO QID PRN Diarrhea 04/24/23 05/09/23 mg-0.025 mg tablet (Lomotil) Previous Rx's Medication Instructions Recorded ipratropium 0.5 mg-albuterol 3 mg 3 ml inhalation BID PRN shortness 08/24/21 (2.5 mg base)/3 mL nebulization of breath or wheezing #15 mL soln albuterol sulfate 90 mcg/actuation 2 puff inhalation QID PRN 02/22/22 aerosol inhaler (Ventolin HFA) Shortness Of Breath Or Wheezing #8.5 grams apixaban 2.5 mg tablet (Eliquis) 2.5 mg PO BID 90 days #180 tabs 08/16/22 methimazole 5 mg tablet 5 mg PO DAILYBB #90 tabs 01/03/23 fluticasone fur. 100 mcg-umeclid 1 inh inhalation DAILY #60 ea 03/08/23 62.5 mcg-vilant 25 mcg inhalat.powder (Trelegy Ellipta) sucralfate 1 gram tablet (Carafate) 1 g PO BID #180 tabs 03/26/23 benazepril 20 mg tablet 40 mg (2 x 20 mg) PO QPM #180 tabs 04/29/23 Results & Data (ED) Vital Signs Vital Signs - 24 hr 05/09/23 12:57 05/09/23 13:05 05/09/23 13:08 Temperature 37.2 C Temperature Source Oral Pulse Rate 84 84 90 Pulse Rate [Right Finger] Pulse Rate from SpO2 Sensor 103 H Pulse Rhythm Irregular Irregular Pulse Rhythm [Right Finger] Pulse Strength Normal Pulse Strength [Right Finger] Respiratory Rate 18 18 19 Respiratory Effort / Characteristics Non-Labored Spontaneous Respiratory Depth Normal Respiratory Pattern Regular Blood Pressure 144/79 H Blood Pressure [Right Arm] Blood Pressure Mean 100 Blood Pressure Mean [Right Arm] Blood Pressure Position Lying Blood Pressure Position [Right Arm] Pulse Oximetry 95 95 96 Oxygen Delivery Method Room Air Room Air Sepsis Recent Fever Within 48 Hours No Sepsis New/Unexplained Change in Mental Status N/A Sepsis Action Taken by Nursing No Action Required 05/09/23 13:09 05/09/23 13:10 05/09/23 13:20 Temperature Temperature Source Pulse Rate 102 H 84 98 H Pulse Rate [Right Finger] Pulse Rate from SpO2 Sensor 88 90 Pulse Rhythm Pulse Rhythm [Right Finger] Pulse Strength Pulse Strength [Right Finger] Respiratory Rate 26 H 22 Respiratory Effort / Characteristics Respiratory Depth Respiratory Pattern Blood Pressure Blood Pressure [Right Arm] Blood Pressure Mean Blood Pressure Mean [Right Arm] Blood Pressure Position Blood Pressure Position [Right Arm] Pulse Oximetry 98 97 Oxygen Delivery Method Sepsis Recent Fever Within 48 Hours Sepsis New/Unexplained Change in Mental Status Sepsis Action Taken by Nursing 05/09/23 13:24 05/09/23 13:30 05/09/23 13:40 Temperature Temperature Source Pulse Rate 84 79 Pulse Rate [Right Finger] 78 Pulse Rate from SpO2 Sensor 84 75 Pulse Rhythm Pulse Rhythm [Right Finger] Irregular Pulse Strength Pulse Strength [Right Finger] Normal Respiratory Rate 18 23 18 Respiratory Effort / Characteristics Non-Labored Spontaneous Respiratory Depth Normal Respiratory Pattern Regular Blood Pressure 156/73 H Blood Pressure [Right Arm] 156/73 H Blood Pressure Mean 100 Blood Pressure Mean [Right Arm] 100 Blood Pressure Position Blood Pressure Position [Right Arm] Lying Pulse Oximetry 92 93 90 Oxygen Delivery Method Room Air Sepsis Recent Fever Within 48 Hours Sepsis New/Unexplained Change in Mental Status Sepsis Action Taken by Nursing 05/09/23 13:50 05/09/23 14:00 05/09/23 14:29 Temperature Temperature Source Pulse Rate 90 103 H 150 H Pulse Rate [Right Finger] Pulse Rate from SpO2 Sensor 90 86 95 H Pulse Rhythm Pulse Rhythm [Right Finger] Pulse Strength Pulse Strength [Right Finger] Respiratory Rate 17 24 21 Respiratory Effort / Characteristics Respiratory Depth Respiratory Pattern Blood Pressure 163/81 H Blood Pressure [Right Arm] Blood Pressure Mean 108 Blood Pressure Mean [Right Arm] Blood Pressure Position Blood Pressure Position [Right Arm] Pulse Oximetry 95 96 93 Oxygen Delivery Method Room Air Sepsis Recent Fever Within 48 Hours Sepsis New/Unexplained Change in Mental Status Sepsis Action Taken by Nursing 05/09/23 14:30 05/09/23 14:40 05/09/23 14:50 Temperature Temperature Source Pulse Rate 83 90 94 H Pulse Rate [Right Finger] Pulse Rate from SpO2 Sensor 85 88 84 Pulse Rhythm Pulse Rhythm [Right Finger] Pulse Strength Pulse Strength [Right Finger] Respiratory Rate 18 21 14 Respiratory Effort / Characteristics Respiratory Depth Respiratory Pattern Blood Pressure 134/58 L Blood Pressure [Right Arm] Blood Pressure Mean 83 Blood Pressure Mean [Right Arm] Blood Pressure Position Blood Pressure Position [Right Arm] Pulse Oximetry 99 99 93 Oxygen Delivery Method Room Air Sepsis Recent Fever Within 48 Hours Sepsis New/Unexplained Change in Mental Status Sepsis Action Taken by Nursing 05/09/23 15:00 05/09/23 15:10 05/09/23 15:20 Temperature Temperature Source Pulse Rate 87 70 76 Pulse Rate [Right Finger] Pulse Rate from SpO2 Sensor 81 77 84 Pulse Rhythm Pulse Rhythm [Right Finger] Pulse Strength Pulse Strength [Right Finger] Respiratory Rate 15 15 27 H Respiratory Effort / Characteristics Respiratory Depth Respiratory Pattern Blood Pressure 113/48 L Blood Pressure [Right Arm] Blood Pressure Mean 69 Blood Pressure Mean [Right Arm] Blood Pressure Position Blood Pressure Position [Right Arm] Pulse Oximetry 93 93 96 Oxygen Delivery Method Room Air Sepsis Recent Fever Within 48 Hours Sepsis New/Unexplained Change in Mental Status Sepsis Action Taken by Nursing 05/09/23 15:24 05/09/23 15:30 05/09/23 15:30 Temperature Temperature Source Pulse Rate 69 Pulse Rate [Right Finger] 73 Pulse Rate from SpO2 Sensor 85 Pulse Rhythm Pulse Rhythm [Right Finger] Irregular Pulse Strength Pulse Strength [Right Finger] Normal Respiratory Rate 14 16 Respiratory Effort / Characteristics Non-Labored Spontaneous Respiratory Depth Normal Respiratory Pattern Regular Blood Pressure 120/53 L Blood Pressure [Right Arm] 113/48 L Blood Pressure Mean 91 Blood Pressure Mean [Right Arm] 69 Blood Pressure Position Blood Pressure Position [Right Arm] Lying Pulse Oximetry 93 97 Oxygen Delivery Method Room Air Room Air Sepsis Recent Fever Within 48 Hours Sepsis New/Unexplained Change in Mental Status Sepsis Action Taken by Nursing 05/09/23 15:40 05/09/23 15:50 05/09/23 16:00 Temperature Temperature Source Pulse Rate 73 71 Pulse Rate [Right Finger] Pulse Rate from SpO2 Sensor 81 79 77 Pulse Rhythm Pulse Rhythm [Right Finger] Pulse Strength Pulse Strength [Right Finger] Respiratory Rate 33 H 15 26 H Respiratory Effort / Characteristics Respiratory Depth Respiratory Pattern Blood Pressure 107/55 L Blood Pressure [Right Arm] Blood Pressure Mean 72 Blood Pressure Mean [Right Arm] Blood Pressure Position Blood Pressure Position [Right Arm] Pulse Oximetry 94 92 96 Oxygen Delivery Method Room Air Sepsis Recent Fever Within 48 Hours Sepsis New/Unexplained Change in Mental Status Sepsis Action Taken by Nursing 05/09/23 16:01 05/09/23 17:08 Temperature Temperature Source Pulse Rate 65 64 Pulse Rate [Right Finger] Pulse Rate from SpO2 Sensor 70 Pulse Rhythm Pulse Rhythm [Right Finger] Pulse Strength Pulse Strength [Right Finger] Respiratory Rate 16 Respiratory Effort / Characteristics Respiratory Depth Respiratory Pattern Blood Pressure Blood Pressure [Right Arm] Blood Pressure Mean Blood Pressure Mean [Right Arm] Blood Pressure Position Blood Pressure Position [Right Arm] Pulse Oximetry 94 Oxygen Delivery Method Sepsis Recent Fever Within 48 Hours Sepsis New/Unexplained Change in Mental Status Sepsis Action Taken by Nursing Laboratory Data 05/09/23 13:11 05/09/23 13:11 Lab Results 05/09/23 05/09/23 Range/Units 13:11 15:48 WBC 39.92 H* (4.8-10.8) K/ul RBC 3.84 L (4.20-5.40) M/uL Hgb 10.0 L (12.0-16.0) g/dl Hct 31.9 L (37.0-47.0) % MCV 83.1 (80.0-100.0) fL MCH 26.0 (25.0-34.0) pg MCHC 31.3 L (32.0-36.0) g/dL RDW Std Deviation 64.1 H (36.4-46.3) fL RDW Coeff of Rosio 21.2 H (11.5-14.5) % Plt Count 356 (130-400) K/uL MPV 11.0 (9.4-12.4) fL Immature Gran % (Auto) 1.1 % Neut % (Auto) 78.0 % Lymph % (Auto) 10.1 % Foster % (Auto) 10.5 % Eos % (Auto) 0.0 % Baso % (Auto) 0.3 % Neut # (Auto) 31.17 H (1.40-6.50) K/uL Lymph # (Auto) 4.02 H (1.20-3.40) K/uL Foster # (Auto) 4.18 H (0.11-0.59) K/uL Eos # (Auto) 0.00 (0.00-0.50) K/uL Baso # (Auto) 0.12 (0.00-0.20) K/uL Immature Gran # (Auto) 0.43 H (0.01-0.20) K/uL Toxic Vacuolation 1+ Polychromasia 1+ Poikilocytosis Present Anisocytosis Present ESR 46 H (0-30) mm/hr PT 13.5 H (9.0-12.0) Seconds INR 1.2 H (0.9-1.1) Sodium 138 (136-145) mmol/L Potassium 3.7 (3.5-5.1) mmol/L Chloride 107 (98-107) mmol/L Carbon Dioxide 21 (21-32) mmol/L Anion Gap 10 (3-11) BUN 23 (6-23) mg/dl Creatinine 0.69 (0.6-1.2) mg/dl Est Cr Clr Drug Dosing 49.8 ml/min Est GFR ( Amer) 94.6 ml/min Est GFR (Non-Af Amer) 81.6 ml/min BUN/Creatinine Ratio 33.3 H (10-20) Glucose 159 H (70-99(Fasting)) mg/dl Lactate 1.8 (0.4-2.0) mmol/L Calcium 8.7 (8.6-10.3) mg/dl Total Bilirubin 0.7 (0.2-1.0) mg/dl AST 21 (13-39) U/L ALT 13 (7-52) U/L Alkaline Phosphatase 82 (34-104) U/L Troponin I High Sens 11.1 (0-14) pg/ml C-Reactive Protein 9.46 H (0-0.5) mg/dl Total Protein 6.3 (6.0-8.3) gm/dl Albumin 3.5 (3.4-5.0) gm/dl Globulin 2.8 (2.5-4.0) gm/dl Albumin/Globulin Ratio 1.3 (0.9-2) Lipase 8 L (11-82) U/L Procalcitonin 2.29 H (0-0.5) ng/ml Administered Medications Discontinued Medications Sodium Chloride (Nss) 500 mls @ 999 mls/hr IV .Q31M STA Stop: 05/09/23 13:35 Last Infusion: 05/09/23 13:50 Dose: Infused Documented By: MANAGER OF COMMUNITY RELATIONS Admin: 05/09/23 13:17 Dose: 999 mls/hr Documented By: MANAGER OF COMMUNITY RELATIONS Ioversol (Optiray 320 500ml) 90 ml IV ONCE ONE Stop: 05/09/23 14:21 Last Admin: 05/09/23 14:11 Dose: 90 ml Documented By: BRM Morphine Sulfate (Morphine Sulfate 4 Mg/Ml 1 Ml Carp\Vial) 4 mg IV NOW STA Stop: 05/09/23 13:06 Last Admin: 05/09/23 13:18 Dose: 4 mg Documented By: MANAGER OF COMMUNITY RELATIONS Morphine Sulfate (Morphine Sulfate 4 Mg/Ml 1 Ml Carp\Vial) 4 mg IV NOW STA Stop: 05/09/23 14:34 Last Admin: 05/09/23 14:39 Dose: 4 mg Documented By: MANAGER OF COMMUNITY RELATIONS Ondansetron HCl (Ondansetron Inj 2 Mg/Ml 2 Ml Vial) 4 mg IV NOW STA Stop: 05/09/23 13:06 Last Admin: 05/09/23 13:17 Dose: 4 mg Documented By: MANAGER OF COMMUNITY RELATIONS Imaging Data Radiologist's Impression: Abdomen/Pelvis CT 05/09/23 13:[address] WITH IV CONTRAST CT DOSE: 322.76 mGy.cm HISTORY: Acute upper abdominal pain with nausea and vomiting. Upper abdominal pain, vomiting TECHNIQUE: Multiaxial CT images of the abdomen and pelvis were performed following the IV administration of 90 cc of Optiray, A dose lowering technique was utilized adhering to the principles of ALARA. COMPARISON STUDY: 04/16/2023, 01/23/2023 FINDINGS: Mild cardiomegaly. Mild ill-defined subsegmental groundglass densities of the basal left lower lobe are likely infectious or inflammatory. Mild bronchial wall thickening. There is no free air. Unchanged appearance of the spleen. Moderately atrophic pancreas. Enhancing 2.0 cm left adrenal gland lesion is stable in size. Unremarkable right adrenal gland. Cholecystectomy. The portal vein appears patent. Heterogeneity of the liver with indeterminate hypodense lesions again noted measuring up to 2.3 cm within the right hepatic lobe. The overall heterogeneity of the hepatic parenchyma has mildly improved from 04/15/2023 exam as again nonspecific. Stable indeterminate 1.8 cm lesion of the left hepatic lobe on image 134. Cysts of the kidneys measure up to 1.6 cm on the left and 1.8 cm on the right. 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 Bilateral renal calcifications are again noted, likely vascular. There is no hydronephrosis. Urinary bladder wall thickening with partial distention. Severe atherosclerosis of the aorta and branch vessels again noted. Fusiform ectasia of the infrarenal abdominal aorta, 2.4 x 2.3 cm. Multifocal stenoses within the imaged femoral arteries. 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 Complete thrombosis at the origin of the [place] superior mesenteric artery and celiac trunk. Small hiatal hernia with fluid-filled distal esophagus. Gaseous distention of the rectum. Colonic diverticulosis. Scattered large and small bowel air-fluid levels. Mild gaseous distention of the ascending colon measuring up to 5 cm. Moderate wall thickening is noted involving several loops of small bowel, no loosening the ileum with loops measuring up to approximately 2.2 cm. No discrete transition point. Mesenteric edema with trace ascites. The appendix is not definitively seen. No acute fracture. Nonspecific paravertebral edema at L4-L5, likely degenerative. Left proximal femoral ORIF hardware. Lumbar levoscoliosis. IMPRESSION: 1. Numerous fluid-filled loops of small bowel demonstrate considerable wall thickening with adjacent inflammatory stranding and mesenteric edema. Findings are suggestive of a nonspecific enteritis. No high-grade small bowel obstruction. 2. Similar appearance of the liver with stable size of the hypodense scattered indeterminate lesions with associated hepatic parenchymal heterogeneity. 3. 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 4. Additional findings as above. ACT 112: Negative or not required by law. The above report was generated using voice recognition software. It may contain grammatical, syntax or spelling errors. Electronically signed by: Yuval Guardado M.D. 05/09/2023 2:50 PM Discharge Plan Visit Data Chief Complaint: Abdominal Pain Stated Complaint: AB PAIN ED Provider: Tam Wise Discharge Problem: Abdominal pain Forms Stand Alone Forms: [employer] Prescriptions Prescriptions: No Action ipratropium-albuterol 0.5 mg-3 mg(2.5 mg base)/3 mL solution for nebulization 3 ml inhalation BID PRN (Reason: shortness of breath or wheezing) Qty: 15 1RF Rx Instructions: INHALE 3 ML INHALATION TWICE A DAY NEEDED FOR SHORTNESS OF BREATH OR WHEEZING methimazole 5 mg tablet 5 mg PO DAILYBB Qty: 90 1RF Trelegy Ellipta 100-62.5-25 mcg blister with device 1 inh inhalation DAILY Qty: 60 2RF sucralfate [Carafate] 1 gram tablet 1 g PO BID Qty: 180 3RF Rx Instructions: mix one tablet with 15mls of water to make slurry then drink twice a day. benazepril 20 mg tablet 40 mg PO QPM Qty: 180 3RF diphenoxylate-atropine [Lomotil] 2.5-0.025 mg tablet 1 tab PO QID PRN (Reason: Diarrhea) Eliquis 2.5 mg tablet 2.5 mg PO BID 90 Days Qty: 180 3RF diltiazem HCl 180 mg capsule,extended release 24 hr 180 mg PO DAILY atorvastatin 10 mg tablet 10 mg PO DAILY albuterol sulfate [Ventolin HFA] 90 mcg/actuation HFA aerosol inhaler 2 puff INHALATION QID PRN (Reason: Shortness Of Breath Or Wheezing) Qty: 8.5 1RF aspirin 81 mg tablet,delayed release (DR/EC) 81 mg PO DAILY latanoprost [Xalatan] 0.005 % drops 1 drp OPB HS pantoprazole 40 mg tablet,delayed release (DR/EC) 40 mg PO BID Referrals Referrals: Carlton Mendez III, CRNP [Primary Care Provider] - Discharge Problem: Abdominal pain Qualifiers: Abdominal location: lower abdomen, unspecified Qualified Code(s): R10.30 - Lower abdominal pain, unspecified
[2023-05-09 13:46] LABS: Hematocrit (blood only) 31.9 % (37.0-47.0); Mean Corpuscular Hgb Conc 31.3 g/dL (32.0-36.0); Mean Corpuscular Volume 83.1 fL (80.0-100.0); Platelet Count 356 K/uL (130-400); RDW Coefficient of Variation 21.2 % (11.5-14.5); RDW Standard Deviation 64.1 fL (36.4-46.3); Red Blood Count 3.84 M/uL (4.20-5.40); White Blood Count 39.92 K/ul (4.8-10.8)
[2023-05-09 13:54] LABS: INR 1.2 (0.9-1.1); Prothrombin Time 13.5 Seconds (9.0-12.0)
[2023-05-09 13:57] LABS: Albumin Globulin Ratio 1.3 (0.9-2); Albumin Level 3.5 gm/dl (3.4-5.0); BUN Creatinine Ratio 33.3 (10-20); Bilirubin,Total 0.7 mg/dl (0.2-1.0); Calcium 8.7 mg/dl (8.6-10.3); Creatinine Clr Calc Pharmacy 49.8 ml/min; Est GFR (African American) 94.6 ml/min; Est GFR (Non-African American) 81.6 ml/min; Globulin 2.8 gm/dl (2.5-4.0); Potassium 3.7 mmol/L (3.5-5.1); Total Protein 6.3 gm/dl (6.0-8.3); Troponin I High Sensitivity 11.1 pg/ml (0-14)
[2023-05-09 14:04] LABS: Anisocytosis Present; Basophils # (auto) 0.12 K/uL (0.00-0.20); Basophils % (auto) 0.3 %; Immature Granulocytes # (auto) 0.43 K/uL (0.01-0.20); Immature Granulocytes % (auto) 1.1 %; Lymphocytes # (auto) 4.02 K/uL (1.20-3.40); Lymphocytes % (auto) 10.1 %; Monocytes # (auto) 4.18 K/uL (0.11-0.59); Monocytes % (auto) 10.5 %; Neutrophils # (auto) 31.17 K/uL (1.40-6.50); Poikilocytosis Present; Polychromasia 1+; Toxic Vacuolation 1+
[2023-05-09] MEDS ORDERED: OPTIRAY 320 500ml IV ONE (14:20)
--- NOTE | 2023-05-09 14:36 | Electrocardiogram Report ---
Test Reason : Blood Pressure : / mmHG Vent. Rate : 093 BPM Atrial Rate : 000 BPM P-R Int : 000 ms QRS Dur : 082 ms QT Int : 376 ms P-R-T Axes : 000 031 015 degrees QTc Int : 467 ms Atrial fibrillation Low voltage QRS Possible Old Anterior infarct (cited on or before 07-AUG-2021) Abnormal ECG When compared with ECG of 21-APR-2023 07:44, No significant change was found Confirmed by Satya Titus ([id number]) on 05/09/2023 2:36:19 PM Referred By: Confirmed By:Satya Titus
--- NOTE | 2023-05-09 14:51 | CT Scan Report ---
ABDOMEN AND PELVIS CT WITH IV CONTRAST CT DOSE: 322.76 mGy.cm HISTORY: Acute upper abdominal pain with nausea and vomiting. Upper abdominal pain, vomiting TECHNIQUE: Multiaxial CT images of the abdomen and pelvis were performed following the IV administrat ion of 90 cc of Optiray, A dose lowering technique was utilized adhering to the principles of ALARA. COMPARISON STUDY: 04/16/2023, 01/23/2023 FINDINGS: Mild cardiomegaly. Mild ill-defined subsegmental groundglass densities of the basal left lo wer lobe are likely infectious or inflammatory. Mild bronchial wall thickening. There is no free air. Unchanged appearance of the spleen. Moderately atrophic pancreas. Enhancing 2.0 cm left adrenal gland lesion is stable in size. Unremarkable right adrenal gland. Cholecystectomy. The portal vein appears patent. Heterogeneity of the liver with indeterminate hypodense lesions again noted measuring up to 2.3 cm within the right hepatic lobe. The overall heterogeneity of the hepatic parenchyma has mildly improved from 04/15/2023 exam as again nonspecific. Stable indeterminate 1.8 cm lesion of the left he patic lobe on image 134. Cysts of the kidneys measure up to 1.6 cm on the left and 1.8 cm on the right. 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 Bilateral renal calcifications are again noted, likely vascular. Th ere is no hydronephrosis. Urinary bladder wall thickening with partial distention. Severe atheroscler osis of the aorta and branch vessels again noted. Fusiform ectasia of the infrarenal abdominal aorta, 2.4 x 2.3 cm. Multifocal stenoses within the imaged femoral arteries. Celiac trunk to superior mesen teric artery bypass graft again noted which is in similar appearance to the prior study. Complete thr ombosis at the origin of the [place] superior mesenteric artery and celiac trunk. Small hiatal hernia with fluid-filled distal esophagus. Gaseous distention of the rectum. Colonic div erticulosis. Scattered large and small bowel air-fluid levels. Mild gaseous distention of the ascendi ng colon measuring up to 5 cm. Moderate wall thickening is noted involving several loops of small bow el, no loosening the ileum with loops measuring up to approximately 2.2 cm. No discrete transition po int. Mesenteric edema with trace ascites. The appendix is not definitively seen. No acute fracture. N onspecific paravertebral edema at L4-L5, likely degenerative. Left proximal femoral ORIF hardware. Yajaira mbar levoscoliosis. IMPRESSION: 1. Numerous fluid-filled loops of small bowel demonstrate considerable wall thickening with adjacent inflammatory stranding and mesenteric edema. Findings are suggestive of a nonspecific enteritis. No h igh-grade small bowel obstruction. 2. Similar appearance of the liver with stable size of the hypodense scattered indeterminate lesions with associated hepatic parenchymal heterogeneity. 3. 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 4. Additional findings as above. ACT 112: Negative or not required by law. The above report was generated using voice recognition software. It may contain grammatical, syntax o r spelling errors. Electronically signed by: Yuval Guardado M.D. 05/09/2023 2:50 PM
[2023-05-09] MEDS ORDERED: metroNIDAZOLE 500 MG/100 ML BAG IV STA (17:07)
[2023-05-09] MEDS ORDERED: cefTRIAXone SODIUM 2,000 MG in DEXTROSE 5 % MINI-B 50 ML IV STA (17:07)
[2023-05-09 17:24] LABS: C Reactive Protein 9.46 mg/dl (0-0.5)
--- NOTE | 2023-05-09 18:59 | History & Physical Report ---
Date of Service May 09, 2023 Assessment & Plan (1) Abdominal pain: Plan: Epigastric pain on exam Symptoms and WBC appeared to be antibiotics responsive from last admission - increasing at end of last admission due to increase in diet Noted chronic pain intermittent pains in prior gastroenterology/vascular/cardiology notes since her surgery in May however the diarrhea/nausea/vomiting is unusual. Will consult gastroenterology and infectious disease to review case given recurrence despite a 7 day course of antibiotics last admission - ?vascular related given history and known high grade stenosis of KELLY, however lactate normal - consider repeat CT angiogram / vascular consult Repeat procalcitonin/CPR/ESR/blood cultures/stool PCR Switch pantoprazole to IV 40mg BID (2) Enteritis: Plan: As above. Unlikely c. diff given previously negative, will repeat c. diff PCR irregardless but ok to use Lomotil PRN (3) A-fib: Plan: Continue Eliquis and diltiazem (4) Liver lesion: Plan: Consult infectious disease - unclear if IR ever consulted last admission (5) Pulmonary nodules: Plan: Follows with pulmonology as outpatient (6) COPD (chronic obstructive pulmonary disease): Plan: No wheezing to suggest acute exacerbation Continue routine inhalers (7) Hyperthyroidism: Plan: Continue methimazole (8) LPRD (laryngopharyngeal reflux disease): Plan: Switch pantoprazole to IV BID Plan VTE Prophyalxis - Eliquis Diet - NPO Disposition - admit to med/surg Admission and Anticipated Discharge Date Admission Date: May 09, 2023 History of Present Illness Chief Complaint: Abdominal pain Primary Care Provider: Carlton Mendez III, LUIZ Lakeshia Junior is an 83 year old female with 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 She reports she is having the same symptoms she was having during her prior hospitalization in March. She was hospitalized from April 15-2022 due to diarrhea, nausea, fever and generalized weakness. Initially seen in the ER the day prior to admission with initial WBC of 35.82 which improved to 22.74 after IV Zosyn given in the ER. Her WBC continued to improve with IV antibiotics initially with IV ciprofloxacin + metronidazole and later switched on advice of ID to ceftriaxone + metronidazole. WBC started to increase again on the last few days of admission while still on antibiotics, no steroids were given. Infectious disease followed patient due to liver lesions which some concerns for abscesses although unclear if interventional radiology were ever discussed regarding sample. Stool PCR and blood cultures were negative. She reports her symptoms significantly improved over this hospitalization although started to return just a few days after discharge getting progressively worse over the last 2 weeks. Associated chills but no objective fevers. Associated nausea and vomiting started last night. Allergies Allergy/AdvReac Type Severity Reaction Status Date / Time No Known Drug Allergies Allergy . Verified 05/09/23 16:13 adhesive tape AdvReac Intermediate PULLS SKIN Verified 05/09/23 16:13 OFF Home Medications Medication Instructions Recorded Confirmed Type latanoprost 0.005 % eye drops 1 drp OPB HS 11/20/18 05/09/23 History (Xalatan) ipratropium 0.5 mg-albuterol 3 mg 3 ml inhalation BID PRN shortness 08/24/21 05/09/23 Rx (2.5 mg base)/3 mL nebulization of breath or wheezing #15 mL soln albuterol sulfate 90 mcg/actuation 2 puff inhalation QID PRN 02/22/22 05/09/23 Rx aerosol inhaler (Ventolin HFA) Shortness Of Breath Or Wheezing #8.5 grams apixaban 2.5 mg tablet (Eliquis) 2.5 mg PO BID 90 days #180 tabs 08/16/22 05/09/23 Rx methimazole 5 mg tablet 5 mg PO DAILYBB #90 tabs 01/03/23 05/09/23 Rx aspirin 81 mg tablet,delayed 81 mg PO DAILY 02/06/23 05/09/23 History release atorvastatin 10 mg tablet 10 mg PO DAILY 03/01/23 05/09/23 History fluticasone fur. 100 mcg-umeclid 1 inh inhalation DAILY #60 ea 03/08/23 05/09/23 Rx 62.5 mcg-vilant 25 mcg inhalat.powder (Trelegy Ellipta) sucralfate 1 gram tablet (Carafate) 1 g PO BID #180 tabs 03/26/23 05/09/23 Rx diltiazem HCl 180 mg capsule,24 180 mg PO DAILY 04/11/23 05/09/23 History hr,extended release pantoprazole 40 mg tablet,delayed 40 mg PO BID 04/14/23 05/09/23 History release diphenoxylate-atropine 2.5 1 tab PO QID PRN Diarrhea 04/24/23 05/09/23 History mg-0.025 mg tablet (Lomotil) benazepril 20 mg tablet 40 mg (2 x 20 mg) PO QPM #180 tabs 04/29/23 05/09/23 Rx Past Med/Surg History Medical History (Updated 05/09/23 @ 22:59 by Zak Sawyer MD) Liver lesion COVID-19 Aspiration pneumonitis Leukocytosis (leucocytosis) Chronic renal failure (CRF), stage 3b Toxic multinodular goiter Hypertension Atrial fibrillation Osteoporosis Pleural effusion due to congestive heart failure Multiple pulmonary nodules determined by computed tomography of lung Chronic obstructive pulmonary disease TIA (transient ischemic attack) SMAS (superior mesenteric artery syndrome) COHN (dyspnea on exertion) Atrial fibrillation Dx 4-5 years ago; on xarelto; hx cardioversion; follows with Dr. Bi Gunter historian HLD (hyperlipidemia) COPD (chronic obstructive pulmonary disease) Adrenal nodule Pulmonary nodules Vocal cord paralysis, unilateral complete Hyperthyroidism Acid reflux Glaucoma History of uterine cancer dx > 5 years; treated surgically Hypertension Surgical History S/P cholecystectomy History of anesthesia reaction SLOW TO WAKE UP History of esophagogastroduodenoscopy (EGD) History of cataract surgery RT/LEFT History of total abdominal hysterectomy and bilateral salpingo-oophorectomy History of cardioversion History of colonoscopy History of endoscopy Family History Daughter Breast cancer Mother Cancer Uterine cancer Father Heart disease Sister Family history of diabetes mellitus Brother Family history of diabetes mellitus Aunt Family history of diabetes mellitus Aunt Family history of diabetes mellitus Other Family history non-contributory Hypertension No family history of adverse response to anesthesia Denies family history of Colon cancer Ovarian cancer Prostate cancer Myocardial infarction Social History Smoking Status: Former smoker Tobacco Type: Cigarettes Age Started Using Tobacco: 18; Age Quit Using Tobacco: 52; packs per day: 1; Second Hand Exposure: No; Do You Dip or Chew Tobacco: No; Hx Alcohol Use: No Hx Substance Use: No Preferred Language: Chinese Communication Ability: Effective Visual Impairment: Partially Limited Hearing Ability: Normal Assembler Watch Train Required: No Beliefs That Will Affect Care: None marital status: / Current Living Situation: Alone current occupational status: retired How many Children do You have: 3 Feels Safe at Home: Yes Safety Concerns: Feels Safe At This Time Childhood Exposure to Second-Hand Smoke: Yes Diet: regular Diet Comment: regular caffeine: Yes during the past year weight has: remained stable Dental Care, Regularly: No Physical Activity Frequency: 3-4 Times per Week Seatbelt Use: always Sunscreen Use: No Assistive Devices: Denture - Upper, Denture - Lower, Hospital Bed and Walker Review of Systems Review of Systems: All systems reviewed & are unremarkable except as noted in HPI & below Physical Exam Constitutional: WD/WN, vitals as above Eyes: + anicteric sclerae; normal pupil size ENMT: external ear and nose normal, oropharynx normal Neck: trachea midline, no thyromegaly Respiratory: normal respiratory effort, lungs clear to auscultation Cardiovascular: Rate/Rhythm: regular rate and + irregularly irregular Heart Sounds: no murmur Extremities: normal capillary refill; no calf tenderness and no pedal edema Gastrointestinal (Abdomen): Inspection/Auscultation: abdomen normal to inspection and normal bowel sounds; abdomen not distended Perc ussion/Palpation: + abdomen tender (epigastric) and abdomen soft; no guarding and abdomen not rigid Musculoskeletal: no cyanosis or clubbing, extremities motor strength 5/5 Skin: no rashes, warm and dry Neurologic: moves all extremities and awake; not confused Psychiatric: A+Ox3, euthymic affect Results & Data Results & Data Vital Signs (Past 12 Hours) Vital Signs Temp Pulse Pulse Resp BP BP Pulse Ox 05/09/23 17:08 64 05/09/23 17:00 75 19 119/51 L 96 05/09/23 16:01 65 16 94 05/09/23 16:00 71 26 H 107/55 L 96 05/09/23 15:50 73 15 92 05/09/23 15:40 33 H 94 05/09/23 15:30 69 16 97 05/09/23 15:30 120/53 L 05/09/23 15:24 73 14 113/48 L 93 05/09/23 15:20 76 27 H 96 05/09/23 15:10 70 15 93 05/09/23 15:00 87 15 113/48 L 93 05/09/23 14:50 94 H 14 93 05/09/23 14:40 90 21 99 05/09/23 14:30 83 18 134/58 L 99 05/09/23 14:29 150 H 21 93 05/09/23 14:00 103 H 24 163/81 H 96 05/09/23 13:50 90 17 95 05/09/23 13:40 79 18 90 05/09/23 13:30 84 23 156/73 H 93 05/09/23 13:24 78 18 156/73 H 92 05/09/23 13:20 98 H 22 97 05/09/23 13:10 84 26 H 98 05/09/23 13:09 102 H 05/09/23 13:08 90 19 96 05/09/23 13:05 84 18 95 05/09/23 12:57 37.2 C 84 18 144/79 H 95 O2 Del Method 05/09/23 17:08 05/09/23 17:00 Room Air 05/09/23 16:01 05/09/23 16:00 Room Air 05/09/23 15:50 05/09/23 15:40 05/09/23 15:30 Room Air 05/09/23 15:30 05/09/23 15:24 Room Air 05/09/23 15:20 05/09/23 15:10 05/09/23 15:00 Room Air 05/09/23 14:50 05/09/23 14:40 05/09/23 14:30 Room Air 05/09/23 14:29 05/09/23 14:00 Room Air 05/09/23 13:50 05/09/23 13:40 05/09/23 13:30 05/09/23 13:24 Room Air 05/09/23 13:20 05/09/23 13:10 05/09/23 13:09 05/09/23 13:08 05/09/23 13:05 Room Air 05/09/23 12:57 Room Air Laboratory Results Abnormal lab results 05/09/23 Range/Units 13:11 WBC 39.92 H* (4.8-10.8) K/ul RBC 3.84 L (4.20-5.40) M/uL Hgb 10.0 L (12.0-16.0) g/dl Hct 31.9 L (37.0-47.0) % MCHC 31.3 L (32.0-36.0) g/dL RDW Std Deviation 64.1 H (36.4-46.3) fL RDW Coeff of Rosio 21.2 H (11.5-14.5) % Neut # (Auto) 31.17 H (1.40-6.50) K/uL Lymph # (Auto) 4.02 H (1.20-3.40) K/uL [place] # (Auto) 4.18 H (0.11-0.59) K/uL Immature Gran # (Auto) 0.43 H (0.01-0.20) K/uL ESR 46 H (0-30) mm/hr PT 13.5 H (9.0-12.0) Seconds INR 1.2 H (0.9-1.1) BUN/Creatinine Ratio 33.3 H (10-20) Glucose 159 H (70-99(Fasting)) mg/dl C-Reactive Protein 9.46 H (0-0.5) mg/dl Lipase 8 L (11-82) U/L Procalcitonin 2.29 H (0-0.5) ng/ml Diagnostic Findings ABDOMEN AND PELVIS CT WITH IV CONTRAST CT DOSE: 322.76 mGy.cm HISTORY: Acute upper abdominal pain with nausea and vomiting. Upper abdominal pain, vomiting TECHNIQUE: Multiaxial CT images of the abdomen and pelvis were performed following the IV administration of 90 cc of Optiray, A dose lowering technique was utilized adhering to the principles of ALARA. COMPARISON STUDY: 04/16/2023, 01/23/2023 FINDINGS: Mild cardiomegaly. Mild ill-defined subsegmental groundglass densities of the basal left lower lobe are likely infectious or inflammatory. Mild bro nchial wall thickening. There is no free air. Unchanged appearance of the spleen. Moderately atrophic pancreas. Enhancing 2.0 cm left adrenal gland lesion is stable in size. Unremarkable right adrenal gland. Cholecystectomy. The portal vein appears patent. Heterogeneity of the liver with indeterminate hypodense lesions again noted measuring up to 2.3 cm within the right hepatic lobe. The overall heterogeneity of the hepatic parenchyma has mildly improved from 04/15/2023 exam as again nonspecific. Stable indeterminate 1.8 cm lesion of the left hepatic lobe on image 134. Cysts of the kidneys measure up to 1.6 cm on the left and 1.8 cm on the right. 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 Bilateral renal calcifications are again noted, likely vascular. There is no hydronephrosis. Urinary bladder wall thickening with partial distention. Severe atherosclerosis of the aorta and branch vessels again noted. Fusiform ectasia of the infrarenal abdominal aorta, 2.4 x 2.3 cm. Multifocal stenoses within the imaged femoral arteries. 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 Complete thrombosis at the o rigin of the [place] superior mesenteric artery and celiac trunk. Small hiatal hernia with fluid-filled distal esophagus. Gaseous distention of the rectum. Colonic diverticulosis. Scattered large and small bowel air-fluid levels. Mild gaseous distention of the ascending colon measuring up to 5 cm. Moderate wall thickening is noted involving several loops of small bowel, no loosening the ileum with loops measuring up to approximately 2.2 cm. No discrete transition point. Mesenteric edema with trace ascites. The appendix is not definitively seen. No acute fracture. Nonspecific paravertebral edema at L4-L5, likely degenerative. Left proximal femoral ORIF hardware. Lumbar levoscoliosis. IMPRESSION: 1. Numerous fluid-filled loops of small bowel demonstrate considerable wall thickening with adjacent inflammatory stranding and mesenteric edema. Findings are suggestive of a nonspecific enteritis. No high-grade small bowel obstruction. 2. Similar appearance of the liver with stable size of the hypodense scattered indeterminate lesions with associated hepatic parenchymal heterogeneity. 3. 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 4. Additional findings as above. Medications Administered ER Medications Given: Normal saline 500ml bolus Morphine 4mg IV Ondansetron 4mg IV Morphine 4mg IV ECG Rate (beats per minute): 93 Rhythm: atrial fibrillation Findings: no acute ischemic change Comparison ECG Date: from (April 21, 2023) Change: no significant change Code Status & VTE Plan Code Status Full PG Care Time/CCT Total # of Minutes Spent Total Time Spent with Patient: Total time spent is greater than 50% in coordination of care (as documented) at patient's floor/unit and/or counseling patient: Coding Level of Care Code 07676 INT INP/OBS CARE 3/75MIN Diagnoses Abdominal pain R10.30 Abdominal location: lower abdomen, unspecified Enteritis K52.9 A-fib I48.91 Atrial fibrillation type: unspecified Liver lesion K76.9 Pulmonary nodules R91.8 COPD (chronic obstructive pulmonary disease) J44.9 COPD type: unspecified COPD Hyperthyroidism E05.90 LPRD (laryngopharyngeal reflux disease) K21.9 (1) Abdominal pain Abdominal location: lower abdomen, unspecified Qualified Code(s): R10.30 - Lower abdominal pain, unspecified (3) A-fib Atrial fibrillation type: unspecified Qualified Code(s): I48.91 - Unspecified atrial fibrillation (6) COPD (chronic obstructive pulmonary disease) COPD type: unspecified COPD Qualified Code(s): J44.9 - Chronic obstructive pulmonary disease, unspecified
[2023-05-09 19:27] LABS: Appearance Urine Clear (Clear); Bacteria Urine Automated Negative (Negative); Bilirubin Urine Negative (Negative); Blood Urine 3+ (Negative); Color Urine Yellow; Epithelial Cell Urine Auto >30 /lpf (0-5); Glucose Urine UA Negative (Negative); Ketones Urine Negative (Negative); Leukocyte Esterase Urine Trace (Negative); Nitrite Urine Negative (Negative); Protein Urine Trace (Negative); Specific Gravity Urine > 1.045 (1.000-1.030); Urobilinogen Urine Negative (Negative); pH Urine 5.5 (4.5-7.5)
[2023-05-09 19:38] LABS: Cast Urine Automated 0 /lpf (0-5); RBC Urine Automated 0-4 /hpf (0-4)
[2023-05-10] MEDS ORDERED: PLASMA-LYTE A 1,000 ML IV SCH (00:39)
[2023-05-10] MEDS ORDERED: DIPHENOXYLATE/ATROPINE 2.5/0.025MG TAB PO PRN (00:39)
[2023-05-10] MEDS ORDERED: MoRPHine SULFATE 4 MG/ML 1 ML CARP\\VIAL IV PRN (00:39)
[2023-05-10] MEDS: LATANOPROST 0.005% OP SOLN 2.5 ML BTL OPB SCH ×2 (01:34→19:34)
[2023-05-10] MEDS: APIXABAN 2.5 MG TAB PO SCH ×2 (01:34→07:52)
[2023-05-10] MEDS: PANTOprazole 40 MG in SYRINGE 0 ML IV SCH ×4 (01:34→22:03)
[2023-05-10] MEDS: SUCRALFATE 1 GM TAB PO SCH ×3 (01:34→19:34)
[2023-05-10] MEDS: metroNIDAZOLE 500 MG/100 ML BAG IV SCH ×3 (05:08→19:33)
[2023-05-10] MEDS ORDERED: methIMAzole 5 MG TABLET PO SCH (06:30)
[2023-05-10] MEDS ORDERED: UMECLIDINIUM/VILANTEROL 62.5/25MCG 7 PUFFS/INHALER INH SCH (09:00)
[2023-05-10] MEDS ORDERED: ASPIRIN 81 MG ECTAB PO SCH (09:00)
[2023-05-10] MEDS ORDERED: FLUTICASONE FUROATE 100MCG 14 PUFFS/INHALER INH SCH (09:00)
[2023-05-10] MEDS ORDERED: dilTIAZem HCL 180 MG CAPCR PO SCH (09:00)
[2023-05-10] MEDS ORDERED: NON-FORMULARY MEDICATION (Fluticasone-Umeclidin-Vilanter [Trelegy Ellipta] 100-62.5-25 mcg INH SCH (09:00)
[2023-05-10] MEDS ORDERED: ATORVASTATIN 10 MG TAB PO SCH (09:00)
[2023-05-10] MEDS ORDERED: SODIUM CHLORIDE 0.9% 1,000 ML IV SCH (09:15)
--- NOTE | 2023-05-10 09:27 | Infectious Disease Consult ---
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 Ongoing concern for infection including possible SMA/celiac septic thrombophlebitis, infected SMA Dacron graft, and possible hepatic abscess. The patients recurrent presentation is concerning for infection, and would be concerned about SMA/celiac septic thrombophlebitis, infected SMA Dacron graft, and possible hepatic abscesses. She has symptoms of mesenteric ischemia (severe epigastric abdominal pain, especially after eating) with associated diarrhea and appearance of enteritis on imaging. It is possible that her liver lesions are abscesses from ongoing seeding. Back in May 2022, she had increased incisional drainage from her ex-lap wound requiring Keflex. More recently, she had new liver lesionsher 01/23/23 CT A/P showed complete SMA and ruby celiac thrombosis (with the later being new from previous) and with patent celiac-SMA bypass graft with mild luminal narrowing, and numerous cystic liver lesions of unclear etiology with radiological appearance c/f small hepatic infarcts, bile duct ischemia, superimposed infection not excluded. These findings were seen again at her most recent admission 03/2023, and she appeared to have improvement while on antibiotics. Broad ddx for liver lesions, though in the setting of her SMA thrombosis and possible infection, would be concerned about bacterial liver abscesses from seeding. The patient has no travel outside the country, no animal exposure, no well water, and no history of exposure to TB. The recurrence of her symptoms after stopping antibiotics is concerning for an ongoing deep-seated infection. Will follow BCx, though BCx previously negative at prior admission.Will recommend further evaluation with vascular surgery, including consideration of additional vascular imaging (e.g., ultrasound, PET) as per vascular surgery recommendations. Can continue ceftriaxone and metronidazole for nowthough if the graft is indeed infected, then she should be evaluated for surgical source control as antimicrobials alone would not be able to cure a graft infection. ID Problem List: 1.Leukocytosis 2.Abdominal pain, diarrhea, enteritis 3.Liver cysts vs. abscesses 4.History of SMA thrombosis s/p SMA Dacron bypass graft 06/13/22 5.Mesenteric ischemia Recommendations: - Continue ceftriaxone 2g IV Q24H - Continue metronidazole 500 mg IV Q8H - Would discuss with vascular surgery about the possibility of SMA septic thrombophlebitis and SMA Dacron bypass graft infection. Consider additional vascular imaging (e.g., ultrasound or PET) as per vascular surgery recommendations - F/u BCx ID will continue to follow, but does not monitor the chart or round over the weekend; covering physician can be contacted at [phone] ([facility] call center) for telephonic consultation if needed. I will resume care of the ID service on Saturday. Yashira Reilly MD, S Infectious Diseases [facility] [employer] [facility] direct line: [phone] Consultation Information Consultation was provided via telemedicine using two-way real-time interactive telecommunication between the patient and the telemedicine provider. For the duration of the visit, the provider was performing the assessment from a different facility than the patient. This includesuse of bluetooth stethoscope forauscultationperformed by the telepresenter that the telemedicine provider can hear if described in the physical exam. Podopediatrician contact information: Please call [facility] Call Center . 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 ID is consulted for evaluation of abdominal pain, liver cysts, and leukocytosis. Recent medical history: - 06/02/22 and 06/05/22: ED visits for nausea, vomiting, diarrhea. KUB c/f enteriti s. Discharged home. - 06/09/22-06/11/22: Returns with abdominal pain, epigastric. CT A/P re- demonstrated chronic occlusion of the proximal SMA with distal reconstitution, stable from prior; fluid-filled large and small bowl c/f nonspecific enterocolitis. Wall thickening of ascending hepatic flexure. GI evaluated the patient and recommended reaching out to [facility], with plan for outpatient follow-up. This improved with pip-tazo -> cipro/metronidazole to complete a 5-day course upon discharge. - 06/14/22: At [facility], underwent ex-lap, aorto-celiac and aorto-SMA bypass with 12-6 dacron graft and SMA endarterectomy. The Dacron graft was described to be a rifampin soaked bifurcated Dacron graft 12 mm x 6 mm limbs. - 06/26/22: outpatient vascular note reports increased drainage from her ventral surgical incision. She was given Keflex around this time with some improvement. - 07/02/22: LLE edema with c/f cellulitis. At the time, patient was continued on her Keflex. - 07/05/22: doing well at this outpatient visit, not listed as being on any further abx at this time. - 07/21-07/22/22 for dizziness, found to have anemia - 07/26/22-08/01/22: L hip fracture after tripping over a curb, underwent ORIF with intertrochanteric nail 07/28/22 - 03/01/23 seen by outpatient GI at which time she had liver cysts seen on 12/30/22 imagin. There is complete thrombosis at the origin of the ruby superior mesenteric artery. 2. A celiac trunk to superior mesenteric artery bypass graft is patent. There is at most mild luminal narrowing seen proximally with a minimum luminal diameter of 3 mm. 3. Infiltration around the bypass is nonspecific and may be on a postoperative basis. 4. 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 This is new from previous, and the vessel is reconstituted just above the bifurcation between the hepatic artery and the splenic artery. Both of these vessels are patent. 5. The abdominal aorta is patent. 6. There is high-grade stenosis at the origin of the inferior mesenteric artery. 7. 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 8. There are numerous cystic liver lesions, some of which demonstrate a branching appearance. There are also numerous indeterminant low-attenuation hepatic hypodensities which are largely subcapsular in distribution. These lesions are new from 06/08/2022 and given the time course could represent small hepatic infarcts, or possibly the sequelae of bile duct ischemia. Superimposed cholangitis/ infection/abscesses are not excluded. Clinical correlation will be essential." She was most recently admitted from 04/15-04/22/23. She initially presented with profuse diarrhea, fever, nausea, and generalized weakness, with WBC of 35. CT scan showed diffuse edema of the liver and with liver lesions that were c/w cyst in appearance though initially there was potential concern for liver abscess as well. She was seen by ID (myself) for evaluation and management of possible liver abscesses. She was initially on pip-tazo -> cipro metronidazole -> ceftriaxone metronidazole. BCx and stool PCR negative. Ultimately after discussion with radiology it appeared that some of these cysts were seen on prior imaging and were felt to be benign liver cyst rather than abscess. She was discharged with the presumption that she had a self-limited gastroenteritis (causing the diarrhea) and multiple benign liver cysts. She reports that after discharge, she initially felt well, and was eating. However, she then began to have increased epigastric abdominal pain, which progressed significantly over the last few weeks. No fevers but had chills. She began to have severe pain, nausea, and vomiting around 05/08 in the evening. She reports severe diarrhea every time she ate (at least 3 BMs/day). No joint pain, no rashes. In the ED, afebrile. WBC 39. AST 21 ALT 13 alk phos [address] A/P with n onspecific enteritis, hypodense scattered indeterminate lesions with associated hepatic parenchymal heterogeneity, Severe atherosclerosis again noted with chronic thrombus of the proximal superior mesenteric artery and celiac trunk with a celiac to superior mesenteric arterial graft, suboptimally evaluated on this portal venous phase of imaging. She was started on ceftriaxone and metronidazole. At the time of evaluation, she reports that she has had slight improvement in her abd pain since coming to the hospital, but that the pain remains severe. Allergies Allergy/AdvReac Type Severity Reaction Status Date / Time No Known Drug Allergies Allergy . Verified 05/09/23 16:13 adhesive tape AdvReac Intermediate PULLS SKIN Verified 05/09/23 16:13 OFF Home Medications Medication Instructions Recorded Confirmed Type latanoprost 0.005 % eye drops 1 drp OPB HS 11/20/18 05/09/23 History (Xalatan) ipratropium 0.5 mg-albuterol 3 mg 3 ml inhalation BID PRN shortness 08/24/21 05/09/23 Rx (2.5 mg base)/3 mL nebulization of breath or wheezing #15 mL soln albuterol sulfate 90 mcg/actuation 2 puff inhalation QID PRN 02/22/22 05/09/23 Rx aerosol inhaler (Ventolin HFA) Shortness Of Breath Or Wheezing #8.5 grams apixaban 2.5 mg tablet (Eliquis) 2.5 mg PO BID 90 days #180 tabs 08/16/22 05/09/23 Rx methimazole 5 mg tablet 5 mg PO DAILYBB #90 tabs 01/03/23 05/09/23 Rx aspirin 81 mg tablet,delayed 81 mg PO DAILY 02/06/23 05/09/23 History release atorvastatin 10 mg tablet 10 mg PO DAILY 03/01/23 05/09/23 History fluticasone fur. 100 mcg-umeclid 1 inh inhalation DAILY #60 ea 03/08/23 05/09/23 Rx 62.5 mcg-vilant 25 mcg inhalat.powder (Trelegy Ellipta) sucralfate 1 gram tablet (Carafate) 1 g PO BID #180 tabs 03/26/23 05/09/23 Rx diltiazem HCl 180 mg capsule,24 180 mg PO DAILY 04/11/23 05/09/23 History hr,extended release pantoprazole 40 mg tablet,delayed 40 mg PO BID 04/14/23 05/09/23 History release diphenoxylate-atropine 2.5 1 tab PO QID PRN Diarrhea 04/24/23 05/09/23 History mg-0.025 mg tablet (Lomotil) benazepril 20 mg tablet 40 mg (2 x 20 mg) PO QPM #180 tabs 04/29/23 05/09/23 Rx Patient History Medical History (Updated 05/10/23 @ 09:21 by Yashira Reilly MD) Liver lesion COVID-19 Aspiration pneumonitis Leukocytosis (leucocytosis) Chronic renal failure (CRF), stage 3b Toxic multinodular goiter Hypertension Atrial fibrillation Osteoporosis Pleural effusion due to congestive heart failure Multiple pulmonary nodules determined by computed tomography of lung Chronic obstructive pulmonary disease TIA (transient ischemic attack) SMAS (superior mesenteric artery syndrome) COHN (dyspnea on exertion) Atrial fibrillation Dx 4-5 years ago; on xarelto; hx cardioversion; follows with Dr. Bi Gunter historian HLD (hyperlipidemia) COPD (chronic obstructive pulmonary disease) Adrenal nodule Pulmonary nodules Vocal cord paralysis, unilateral complete Hyperthyroidism Acid reflux Glaucoma History of uterine cancer dx > 5 years; treated surgically Hypertension Surgical History S/P cholecystectomy History of anesthesia reaction SLOW TO WAKE UP History of esophagogastroduodenoscopy (EGD) History of cataract surgery RT/LEFT History of total abdominal hysterectomy and bilateral salpingo-oophorectomy History of cardioversion History of colonoscopy History of endoscopy Family History Daughter Breast cancer Mother Cancer Uterine cancer Father Heart disease Sister Family history of diabetes mellitus Brother Family history of diabetes mellitus Aunt Family history of diabetes mellitus Aunt Family history of diabetes mellitus Other Family history non-contributory Hypertension No family history of adverse response to anesthesia Denies family history of Colon cancer Ovarian cancer Prostate cancer Myocardial infarction Social History Smoking Status: Former smoker Tobacco Type: Cigarettes Age Started Using Tobacco: 18; Age Quit Using Tobacco: 52; packs per day: 1; Second Hand Exposure: No; Do You Dip or Chew Tobacco: No; Hx Alcohol Use: No Hx Substance Use: No Preferred Language: Cook Islander Communication Ability: Effective Visual Impairment: Partially Limited Hearing Ability: Normal Die Designer Required: No Beliefs That Will Affect Care: None marital status: / Current Living Situation: Alone current occupational status: retired How many Children do You have: 3 Feels Safe at Home: Yes Safety Concerns: Feels Safe At This Time Childhood Exposure to Second-Hand Smoke: Yes Diet: regular Diet Comment: regular caffeine: Yes during the past year weight has: remained stable Dental Care, Regularly: No Physical Activity Frequency: 3-4 Times per Week Seatbelt Use: always Sunscreen Use: No Assistive Devices: Denture - Upper, Denture - Lower, Hospital Bed and Walker Physical Exam Physical Exam: Exam obtained with aid of in-person telepresenter. General: Well-appearing, no acute distress HEENT: Conjunctivae non-injected, sclerae anicteric, MMM, OP clear. Small L lateral tongue erosion (patient reports this is new). CV: RRR Resp: CTAB. Respirations nonlabored. Abd: Soft, nondistended. Moderately tender to palpation in epigastrium and mildly tender in RUQ. Ext: Warm and well-perfused, no edema. No joint warmth or effusions noted. Skin: No rashes or lesions. Neuro: Alert & interactive. Grossly non-focal. Psych: Pleasant, appropriate. Results & Data Vital Signs (Past 12 Hours) Vital Signs Temp Pulse Pulse Resp BP Pulse Ox O2 Del Method 05/10/23 07:23 36.9 C 89 16 116/64 93 Room Air 05/10/23 00:10 37.4 C 98 H 16 148/71 H Room Air 05/09/23 23:00 97 H 18 133/64 95 Room Air 05/09/23 21:05 74 05/09/23 21:00 77 18 132/75 96 Room Air Diagnostic Findings Diagnostics: 05/09/23 CT A/P 1. Numerous fluid-filled loops of small bowel demonstrate considerable wall thickening with adjacent inflammatory stranding and mesenteric edema. Findings are suggestive of a nonspecific enteritis. No high-grade small bowel obstruction. 2. Similar appearance of the liver with stable size of the hypodense scattered indeterminate lesions with associated hepatic parenchymal heterogeneity. 3. 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 5.Additional findings as above. 04/16/23 CT A/P 1. No significant change in the scattered indeterminate round hypodense lesions within the liver with the largest in the right hepatic lobe measuring 2.5 cm. 2. Fluid-filled nondilated loops of large or small bowel seen throughout the abdomen. This favors a gastroenteritis/diarrheal illness. 3. Increase in size in the small bilateral pleural effusions. 4. Mild to moderate body wall edema. 5. Additional findings as described above. 01/23/23 CT A/P 1. There is complete thrombosis at the origin of the ruby superior mesenteric artery. 2. A celiac trunk to superior mesenteric artery bypass graft is patent. There is at most mild luminal narrowing seen proximally with a minimum luminal diameter of 3 mm. 3. Infiltration around the bypass is nonspecific and may be on a postoperative basis. 4. 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 This is new from previous, and the vessel is reconstituted just above the bifurcation between the hepatic artery and the splenic artery. Both of these vessels are patent. 5. The abdominal aorta is patent. 6. There is high-grade stenosis at the origin of the inferior mesenteric artery. 7. 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 8. There are numerous cystic liver lesions, some of which demonstrate a branching appearance. There are also numerous indeterminant low-attenuation hepatic hypodensities which are largely subcapsular in distribution. These lesio ns are new from 06/08/2022 and given the time course could represent small hepatic infarcts, or possibly the sequelae of bile duct ischemia. Superimposed cholangitis/ infection/abscesses are not excluded. Clinical correlation will be essential. 9. Cardiomegaly and emphysema. 10. Pleural effusions. 11. Moderate colonic fecal retention. 12. The bladder wall appears mildly thickened. Correlate with clinical findings and urinalysis. 13. Additional findings as above. 06/08/22 CT A/P 1. 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 2. Fluid-filled loops of large and small bowel wall are again noted throughout the abdomen and pelvis which is similar to prior suggestive of a nonspecific enterocolitis with diarrheal illness. Wall thickening of the ascending colon and hepatic flexure is new compared to the prior study. 3. Additional findings as above. 06/02/22 CT A/P 1. Scattered small and large bowel air-fluid levels are noted along with mildly prominent loops of small bowel within the pelvis with areas of small bowel wall thickening. These are suggestive of a nonspecific enteritis/diarrheal illness. A low-grade small bowel obstruction is considered less likely. Follow-up recommended. 2. No high-grade small bowel obstruction or pneumoperitoneum. 3. Additional findings as above. Micro Summary: 05/09 UCx pending (UA with 1-5 WBCs, >30 epithelial) 05/09 BCx x2: pending 05/09 CRP 9.46 Prior 04/15 UA neg for nitrites and LE 04/15 stool PCR panel negative 04/14 BCx x2: NG 04/14 RVP neg 03/10/23 RVP SARS-CoV-2 detected 12/28/22 UCx: E. faecalis 01/23/23 hepatitis B: HBsAg neg, cIgM neg 01/23/23 hep A IgM reactive 01/23/23 HCV Ab negative Antibiotic Summary: ceftriaxone (05/09-present) metronidazole (05/09-present) At prior admission: ceftriaxone (04/17-04/22/23) metronidazole (04/14-04/22/23) ciprofloxacin (04/15-04/17) vancomycin (04/14) pip-tazo (04/14) (2) Abdominal pain Abdominal location: lower abdomen, unspecified Qualified Code(s): R10.30 - Lower abdominal pain, unspecified
--- NOTE | 2023-05-10 09:58 | Gastrointestinal Consultation ---
Date of Consultation May 10, 2023 Assessment & Plan (1) Diarrhea: (2) Hypomagnesemia: (3) Leukocytosis: Plan Diff dx: infectious enteritis vs ischemia vs other. 1. Agree with IV antibiotics and ID consultation. 2. Obtain stool PCR and C Diff. 3. Supportive care. 4. Further recommendations pending results of testing. Thank you for allowing us to participate in the care of this patient. If you have any questions or concerns, please do not hesitate to contact us. Supervising Physician Co-Signing Physician Notes I saw the patient and agree with the findings as documented by LUIZ Quinn CTA shows stenosis of the bypass, appears to be an ischemic etiology for her enteritis. needs vascular surgical intervention. History of Present Illness Reason for Consultation: Recurrent Enteritis Requesting Physician: Dr. Sawyer Attending Physician: Eitan Alicia MD History of Present Illness Patient is a 83 y.o. 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 At that time, she did have negative stool studies but was treated with antibiotics and had improved symptoms. Upon completion, however, she has had returning diarrhea which is watery to "mushy" in consistency. The frequency is described as "too many to count". There is some mild upper abdominal pain but no bloating, nausea or vomiting, fevers or chills or overt GIB. Patient has a significant leukocytosis of 39.[address] consistent with nonspecific enteritis. ID has been consulted and she has been started on IV antibiotics. Allergies Allergy/AdvReac Type Severity Reaction Status Date / Time No Known Drug Allergies Allergy . Verified 05/09/23 16:13 adhesive tape AdvReac Intermediate PULLS SKIN Verified 05/09/23 16:13 OFF Home Medications Medication Instructions Recorded Confirmed Type latanoprost 0.005 % eye drops 1 drp OPB HS 11/20/18 05/09/23 History (Xalatan) ipratropium 0.5 mg-albuterol 3 mg 3 ml inhalation BID PRN shortness 08/24/21 05/09/23 Rx (2.5 mg base)/3 mL nebulization of breath or wheezing #15 mL soln albuterol sulfate 90 mcg/actuation 2 puff inhalation QID PRN 02/22/22 05/09/23 Rx aerosol inhaler (Ventolin HFA) Shortness Of Breath Or Wheezing #8.5 grams apixaban 2.5 mg tablet (Eliquis) 2.5 mg PO BID 90 days #180 tabs 08/16/22 05/09/23 Rx methimazole 5 mg tablet 5 mg PO DAILYBB #90 tabs 01/03/23 05/09/23 Rx aspirin 81 mg tablet,delayed 81 mg PO DAILY 02/06/23 05/09/23 History release atorvastatin 10 mg tablet 10 mg PO DAILY 03/01/23 05/09/23 History fluticasone fur. 100 mcg-umeclid 1 inh inhalation DAILY #60 ea 03/08/23 05/09/23 Rx 62.5 mcg-vilant 25 mcg inhalat.powder (Trelegy Ellipta) sucralfate 1 gram tablet (Carafate) 1 g PO BID #180 tabs 03/26/23 05/09/23 Rx diltiazem HCl 180 mg capsule,24 180 mg PO DAILY 04/11/23 05/09/23 History hr,extended release pantoprazole 40 mg tablet,delayed 40 mg PO BID 04/14/23 05/09/23 History release diphenoxylate-atropine 2.5 1 tab PO QID PRN Diarrhea 04/24/23 05/09/23 History mg-0.025 mg tablet (Lomotil) benazepril 20 mg tablet 40 mg (2 x 20 mg) PO QPM #180 tabs 04/29/23 05/09/23 Rx Patient History Medical History Liver lesion COVID-19 Aspiration pneumonitis Leukocytosis (leucocytosis) Chronic renal failure (CRF), stage 3b Toxic multinodular goiter Hypertension Atrial fibrillation Osteoporosis Pleural effusion due to congestive heart failure Multiple pulmonary nodules determined by computed tomography of lung Chronic obstructive pulmonary disease TIA (transient ischemic attack) SMAS (superior mesenteric artery syndrome) COHN (dyspnea on exertion) Atrial fibrillation Dx 4-5 years ago; on xarelto; hx cardioversion; follows with Dr. Bi Gunter historian HLD (hyperlipidemia) COPD (chronic obstructive pulmonary disease) Adrenal nodule Pulmonary nodules Vocal cord paralysis, unilateral complete Hyperthyroidism Acid reflux Glaucoma History of uterine cancer dx > 5 years; treated surgically Hypertension Surgical History S/P cholecystectomy History of anesthesia reaction SLOW TO WAKE UP History of esophagogastroduodenoscopy (EGD) History of cataract surgery RT/LEFT History of total abdominal hysterectomy and bilateral salpingo-oophorectomy History of cardioversion History of colonoscopy History of endoscopy Family History Daughter Breast cancer Mother Cancer Uterine cancer Father Heart disease Sister Family history of diabetes mellitus Brother Family history of diabetes mellitus Aunt Family history of diabetes mellitus Aunt Family history of diabetes mellitus Other Family history non-contributory Hypertension No family history of adverse response to anesthesia Denies family history of Colon cancer Ovarian cancer Prostate cancer Myocardial infarction Social History Smoking Status: Former smoker Tobacco Type: Cigarettes Age Started Using Tobacco: 18; Age Quit Using Tobacco: 52; packs per day: 1; Second Hand Exposure: No; Do You Dip or Chew Tobacco: No; Hx Alcohol Use: No Hx Substance Use: No Preferred Language: Taiwanese Communication Ability: Effective Visual Impairment: Partially Limited Hearing Ability: Normal Collections Attorney Required: No Beliefs That Will Affect Care: None marital status: / Current Living Situation: Alone current occupational status: retired How many Children do You have: 3 Feels Safe at Home: Yes Safety Concerns: Feels Safe At This Time Childhood Exposure to Second-Hand Smoke: Yes Diet: regular Diet Comment: regular caffeine: Yes during the past year weight has: remained stable Dental Care, Regularly: No Physical Activity Frequency: 3-4 Times per Week Seatbelt Use: always Sunscreen Use: No Assistive Devices: None Review of Systems Constitutional: as per Subjective / HPI Gastrointestinal: as per Subjective / HPI Physical Exam Constitutional: + thin; no acute distress Eyes: EOM intact bilaterally Neck: normal visual inspection Respiratory: normal respiratory effort, lungs clear to auscultation Cardiovascular: Rate/Rhythm: regular rate and regular rhythm Gastrointestinal (Abdomen): normal bowel sounds, soft, nontender, no hepatosplenomegaly Skin: warm and dry Psychiatric: A+Ox3, euthymic affect Results & Data Vital Signs (Past 12 Hours) Vital Signs Temp Pulse Resp BP Pulse Ox O2 Del Method 05/10/23 07:23 36.9 C 89 16 116/64 93 Room Air 05/10/23 00:10 37.4 C 98 H 16 148/71 H Room Air 05/09/23 23:00 97 H 18 133/64 95 Room Air Diagnostic Findings Laboratory Results WBC 39.92 K/ul (4.8-10.8) H* 05/09/23 13:11 RBC 3.84 M/uL (4.20-5.40) L 05/09/23 13:11 Hgb 10.0 g/dl (12.0-16.0) L 05/09/23 13:11 Hct 31.9 % (37.0-47.0) L 05/09/23 13:11 MCV 83.1 fL (80.0-100.0) 05/09/23 13:11 MCH 26.0 pg (25.0-34.0) 05/09/23 13:11 MCHC 31.3 g/dL (32.0-36.0) L 05/09/23 13:11 RDW Std Deviation 64.1 fL (36.4-46.3) H 05/09/23 13:11 RDW Coeff of Rosio 21.2 % (11.5-14.5) H 05/09/23 13:11 Plt Count 356 K/uL (130-400) 05/09/23 13:11 MPV 11.0 fL (9.4-12.4) 05/09/23 13:11 Immature Gran % (Auto) 1.1 % 05/09/23 13:11 Neut % (Auto) 78.0 % 05/09/23 13:11 Lymph % (Auto) 10.1 % 05/09/23 13:11 Benson % (Auto) 10.5 % 05/09/23 13:11 Eos % (Auto) 0.0 % 05/09/23 13:11 Baso % (Auto) 0.3 % 05/09/23 13:11 Neut # (Auto) 31.17 K/uL (1.40-6.50) H 05/09/23 13:11 Lymph # (Auto) 4.02 K/uL (1.20-3.40) H 05/09/23 13:11 Benson # (Auto) 4.18 K/uL (0.11-0.59) H 05/09/23 13:11 Eos # (Auto) 0.00 K/uL (0.00-0.50) 05/09/23 13:11 Baso # (Auto) 0.12 K/uL (0.00-0.20) 05/09/23 13:11 Immature Gran # (Auto) 0.43 K/uL (0.01-0.20) H 05/09/23 13:11 Toxic Vacuolation 1+ 05/09/23 13:11 Polychromasia 1+ 05/09/23 13:11 Poikilocytosis Present 05/09/23 13:11 Anisocytosis Present 05/09/23 13:11 ESR 46 mm/hr (0-30) H 05/09/23 13:11 PT 13.5 Seconds (9.0-12.0) H 05/09/23 13:11 INR 1.2 (0.9-1.1) H 05/09/23 13:11 Sodium 138 mmol/L (136-145) 05/09/23 13:11 Potassium 3.7 mmol/L (3.5-5.1) 05/09/23 13:11 Chloride 107 mmol/L (98-107) 05/09/23 13:11 Carbon Dioxide 21 mmol/L (21-32) 05/09/23 13:11 Anion Gap 10 (3-11) 05/09/23 13:11 BUN 23 mg/dl (6-23) 05/09/23 13:11 Creatinine 0.69 mg/dl (0.6-1.2) 05/09/23 13:11 Est Cr Clr Drug Dosing 49.8 ml/min 05/09/23 13:11 Est GFR ( Amer) 94.6 ml/min 05/09/23 13:11 Est GFR (Non-Af Amer) 81.6 ml/min 05/09/23 13:11 BUN/Creatinine Ratio 33.3 (10-20) H 05/09/23 13:11 Glucose 159 mg/dl (70-99(Fasting)) H 05/09/23 13:11 Lactate 1.8 mmol/L (0.4-2.0) 05/09/23 15:48 Calcium 8.7 mg/dl (8.6-10.3) 05/09/23 13:11 Total Bilirubin 0.7 mg/dl (0.2-1.0) 05/09/23 13:11 AST 21 U/L (13-39) 05/09/23 13:11 ALT 13 U/L (7-52) 05/09/23 13:11 Alkaline Phosphatase 82 U/L (34-104) 05/09/23 13:11 Troponin I High Sens 11.1 pg/ml (0-14) 05/09/23 13:11 C-Reactive Protein 9.46 mg/dl (0-0.5) H 05/09/23 13:11 Total Protein 6.3 gm/dl (6.0-8.3) 05/09/23 13:11 Albumin 3.5 gm/dl (3.4-5.0) 05/09/23 13:11 Globulin 2.8 gm/dl (2.5-4.0) 05/09/23 13:11 Albumin/Globulin Ratio 1.3 (0.9-2) 05/09/23 13:11 Lipase 8 U/L (11-82) L 05/09/23 13:11 Procalcitonin 2.29 ng/ml (0-0.5) H 05/09/23 13:11 Urine Color Yellow 05/09/23 19:12 Urine Appearance Clear (Clear) 05/09/23 19:12 Urine pH 5.5 (4.5-7.5) 05/09/23 19:12 Ur Specific [place] > 1.045 (1.000-1.030) H 05/09/23 19:12 Urine Protein Trace (Negative) H 05/09/23 19:12 Urine Glucose (UA) Negative (Negative) 05/09/23 19:12 Urine Ketones Negative (Negative) 05/09/23 19:12 Urine Blood 3+ (Negative) H 05/09/23 19:12 Urine Nitrite Negative (Negative) 05/09/23 19:12 Urine Bilirubin Negative (Negative) 05/09/23 19:12 Urine Urobilinogen Negative (Negative) 05/09/23 19:12 Ur Leukocyte Esterase Trace (Negative) H 05/09/23 19:12 Urine WBC (Auto) 1-5 /hpf (0-5) 05/09/23 19:12 Urine RBC (Auto) 0-4 /hpf (0-4) 05/09/23 19:12 U Hyaline Cast (Auto) 0 /lpf (0-5) 05/09/23 19:12 U Epithel Cells (Auto) >30 /lpf (0-5) H 05/09/23 19:12 Urine Bacteria (Auto) Negative (Negative) 05/09/23 19:12 Urine Yeast Not Reportable 05/09/23 19:12 Impressions Abdomen/Pelvis CT 05/09/23 13:[address] WITH IV CONTRAST CT DOSE: 322.76 mGy.cm HISTORY: Acute upper abdominal pain with nausea and vomiting. Upper abdominal pain, vomiting TECHNIQUE: Multiaxial CT images of the abdomen and pelvis were performed following the IV administration of 90 cc of Optiray, A dose lowering technique was utilized adhering to the principles of ALARA. COMPARISON STUDY: 04/16/2023, 01/23/2023 FINDINGS: Mild cardiomegaly. Mild ill-defined subsegmental groundglass densities of the basal left lower lobe are likely infectious or inflammatory. Mild bronchial wall thickening. There is no free air. Unchanged appearance of the spleen. Moderately atrophic pancreas. Enhancing 2.0 cm left adrenal gland lesion is stable in size. Unremarkable right adrenal gland. Cholecystectomy. The portal vein appears patent. Heterogeneity of the liver with indeterminate hypodense lesions again noted measuring up to 2.3 cm within the right hepatic lobe. The overall heterogeneity of the hepatic parenchyma has mildly improved from 04/15/2023 exam as again nonspecific. Stable indeterminate 1.8 cm lesion of the left hepatic lobe on image 134. Cysts of the kidneys measure up to 1.6 cm on the left and 1.8 cm on the right. 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 Bilateral renal calcifications are again noted, likely vascular. There is no hydronephrosis. Urinary bladder wall thickening with partial distention. Severe atherosclerosis of the aorta and branch vessels again noted. Fusiform ectasia of the infrarenal abdominal aorta, 2.4 x 2.3 cm. Multifocal stenoses within the imaged femoral arteries. 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 Small hiatal hernia with fluid-filled distal esophagus. Gaseous distention of the rectum. Colonic diverticulosis. Scattered large and small bowel air-fluid levels. Mild gaseous distention of the ascending colon measuring up to 5 cm. Moderate wall thickening is noted involving several loops of small bowel, no loosening the ileum with loops measuring up to approximately 2.2 cm. No discrete transition point. Mesenteric edema with trace ascites. The appendix is not definitively seen. No acute fracture. Nonspecific paravertebral edema at L4-L5, likely degenerative. Left proximal femoral ORIF hardware. Lumbar levoscoliosis. IMPRESSION: 1. Numerous fluid-filled loops of small bowel demonstrate considerable wall thickening with adjacent inflammatory stranding and mesenteric edema. Findings are suggestive of a nonspecific enteritis. No high-grade small bowel obstruction. 2. Similar appearance of the liver with stable size of the hypodense scattered indeterminate lesions with associated hepatic parenchymal heterogeneity. 3. 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 4. Additional findings as above. ACT 112: Negative or not required by law. The above report was generated using voice recognition software. It may contain grammatical, syntax or spelling errors. Electronically signed by: Yuval Guardado M.D. 05/09/2023 2:50 PM PG Care Time/CCT Total # of Minutes Spent Total Time Spent with Patient: Total time spent is greater than 50% in coordination of care (as documented) at patient's floor/unit and/or counseling patient: Coding Level of Care Code 77131 INT INP/OBS CARE 3/75MIN Diagnoses Diarrhea R19.7 Hypomagnesemia E83.42 Leukocytosis D72.829
--- NOTE | 2023-05-10 12:04 | Hospitalist Progress Note ---
Date of Service May 10, 2023 Assessment & Plan (1) Enteritis: Plan: With associated leukocytosis. Clinically, this is not ischemic gut. This could be C. difficile enteritis causing the leukocytosis. Empiric oral vancomycin therapy has been started. GI consult requested. (2) A-fib: Plan: Stable. Continue diltiazem. Eliquis is temporarily on hold (3) Liver lesion: Plan: These appear to be stable and cystic. Highly unlikely that these are abscesses. Case discussed with infectious disease earlier today, May 10. (4) Pulmonary nodules: Plan: Stable. Continue outpatient follow-up with pulmonology (5) COPD (chronic obstructive pulmonary disease): Plan: Stable. Continue current medical management (6) Hyperthyroidism: Plan: Stable. Continue methimazole Plan Hopeful discharge to home early next week Admission and Anticipated Discharge Date Admission Date: May 09, 2023 Subjective Alert and oriented. No acute distress. She is frustrated that she has recurrent abdominal pain. White blood cell count is markedly elevated and clinically she does not have ischemic gut. This could be C. difficile enteritis causing her symptoms and elevated white blood cell count. Oral vancomycin has been started empirically. She is also on parenteral Rocephin and Flagyl. C. difficile toxin assay is pending. Cystic structures seen in the liver on CT scan are unchanged and I doubt these represent liver abscesses. Vascular surgery consultation requested to assess her superior mesenteric artery bypass graft that was placed at [facility] in May of this year. Eliquis is placed on hold in case there is a need for any intervention. Review of Systems 2 Review of Systems: Constitutional-no fever or chills ENT-no blurred vision, no double vision, no epistaxis, no sore throat Respiratory-no cough, no wheezing, no shortness of breath Cardiac-no palpitations, no chest pain, no syncope GI-no nausea, vomiting, melena, hematochezia. She has loose stools and pain -no urinary retention, no urinary incontinence, no dysuria, no hematuria Musculoskeletal-no joint pain, no muscle tenderness Skin-no bruising, no rashes, no pruritus Neuro-no isolated weakness, no paresthesia, no weakness Psych-no depression, no anxiety Physical Exam 2 Physical Exam: General-alert and oriented x3, no fevers, no chills HEENT-head atraumatic and normocephalic, pupils equal and reactive to light, extraocular muscles intact Neck-no lymphadenopathy or thyromegaly, trachea midline Chest-clear to auscultation percussion. No rales wheezing or rhonchi Cardiac-regular rate and rhythm, normal S1 and S2 Abdomen-normal bowel sounds, no hepatosplenomegaly. Diffusely tender. No rebound or guarding Extremities-no cyanosis, clubbing, or edema Neuro-cranial nerves II through XII intact, motor and sensory function within normal limits, strength symmetrical, no focal deficits Psych-normal affect, normal mood Results & Data Results & Data Vital Signs (Past 12 Hours) Vital Signs Temp Pulse Resp BP Pulse Ox O2 Del Method 05/10/23 07:23 36.9 C 89 16 116/64 93 Room Air 05/10/23 00:10 37.4 C 98 H 16 148/71 H Room Air Laboratory Results 05/09/23 13:11 05/09/23 13:11 PG Care Time/CCT Total # of Minutes Spent Total Time Spent with Patient: Total time spent is greater than 50% in coordination of care (as documented) at patient's floor/unit and/or counseling patient: Coding Level of Care Code 35547 SUB INP/OBS CARE 3/50MIN Diagnoses Enteritis K52.9 A-fib I48.91 Atrial fibrillation type: unspecified Liver lesion K76.9 Pulmonary nodules R91.8 COPD (chronic obstructive pulmonary disease) J44.9 COPD type: unspecified COPD Hyperthyroidism E05.90 (2) A-fib Atrial fibrillation type: unspecified Qualified Code(s): I48.91 - Unspecified atrial fibrillation (5) COPD (chronic obstructive pulmonary disease) COPD type: unspecified COPD Qualified Code(s): J44.9 - Chronic obstructive pulmonary disease, unspecified
[2023-05-10] MEDS ORDERED: OPTIRAY 320 125ml IV ONE (12:15)
[2023-05-10] MEDS: CHERRY SYRUP 5 ML UDP PO SCH ×3 (13:04→23:51)
[2023-05-10] MEDS: VANCOMYCIN HCL 250 MG/5 ML SOLN PO SCH ×3 (13:05→23:51)
--- NOTE | 2023-05-10 13:21 | CT Scan Report ---
CT ANGIOGRAM OF THE ABDOMEN AND PELVIS COMBO CLINICAL HISTORY: Bowel ischemia. History of mesenteric artery bypass. COMPARISON STUDY: CT angiogram of the abdomen and pelvis dated 01/23/2023. Abdominal CT dated 023.. TECHNIQUE: Before and following the IV administration of 118 cc of Optiray 320, CT angiogram of the a bdomen and pelvis was performed from the lung bases the proximal femora. Images are reviewed in the a xial, sagittal, and coronal planes. 3-D MIPS images are created and assessed. IV contrast was adminis tered without complication. A dose lowering technique was utilized adhering to the principles of ALA RA. CT DOSE: 765.09 mGy.cm FINDINGS: Lower chest: The heart is enlarged noting trace pericardial effusion. The coronary arteries are dense ly calcified. Emphysematous change is noted. There is a small left pleural effusion with associated a telectasis. No airspace consolidation is seen typical for pneumonia. There are scattered calcified gr anulomas. Moderate bronchiectasis is noted at the lung bases. There is a small hiatal hernia. Liver: The contrast-enhanced liver is normal in size, contour, and attenuation. There is no intrahepa tic biliary ductal dilatation. There are numerous water attenuation liver lesions which measure up 2. 7 cm. These are similar to previous. Several of these show a branching appearance. Gallbladder: Surgically absent noting clips in the gallbladder fossa. Spleen: Normal in size noting heterogeneous arterial phase enhancement. Pancreas: Unremarkable. Adrenal glands: A 1.8 cm left adrenal nodule is unchanged. The right adrenal gland is normal in appea paolo. Kidneys: The contrast enhanced kidneys demonstrate mild cortical atrophy and are without hydronephros is. The kidneys enhance symmetrically. There are bilateral renal vascular calcifications. No renal ca lculi are definitively seen on the unenhanced series. 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 Numerous simple and complex bilateral renal cysts as well as indeterminat e cortical hypodensities are similar to previous. These measure up to 2.1 cm. No enhancing lesion is clearly identified. There is no evidence of urothelial lesion in the renal pelvis bilaterally or kamaljit g the course of the ureters. Abdominal aorta and iliac arteries: There is advanced atherosclerotic calcification and ectasia of th e abdominal aorta. The abdominal aorta is widely patent. No dissection is seen. The iliac vessels are patent bilaterally noting advanced atherosclerotic plaque and irregularity. 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 Major branches of the abdominal aorta: There is complete thrombosis at the origin of the [place] super ior mesenteric artery. This is seen on axial image #83. A celiac trunk to superior mesenteric artery bypass graft is patent. There is mild infiltration around the bypass. There is moderate stenosis the proximal bypass with patent luminal diameter of 2 mm. This is best seen on image #50. There is focal high-grade stenosis with near complete occlusion of the mid to distal bypass seen above the SMA anast omosis on image #93. There is ectasia at the distal anastomosis which measures up to 0.8 cm. The marzena pheral branches of the superior mesenteric artery are patent. There is ectasia at the origin of the c eliac trunk which measures up to 1.3 cm as seen on image #46. There is complete thrombosis of the sly jenni celiac trunk seen on axial image #53. This is reconstituted distally on image #71 just above the bifurcation between the hepatic artery and the splenic artery. There is moderate to high-grade stenos is at the origin of the inferior mesenteric artery. The remainder of the inferior mesenteric artery i s patent. Hepatic arterial anatomy is conventional. The splenic artery is patent. The renal arteries are patent bilaterally. There is at least mild stenosis at the origin of the left renal artery. There is a tiny right upper pole accessory renal artery. Bowel: There is mild diffuse wall thickening seen throughout the small bowel. The small bowel loops a re mildly distended and fluid-filled, measuring up to 2.8 cm diameter. There is no pneumatosis intest inalis or portal venous gas. There is no bowel obstruction. Moderate fecal retention is seen througho ut the colon. There is mild colonic diverticulosis without CT evidence of acute diverticulitis. The a ppendix is well-visualized and normal. Peritoneum: There is no intraperitoneal free air or abdominal ascites. Mild infiltration is seen thro ughout the mesentery. Lymphadenopathy: None. Pelvic viscera: The bladder is filled with excreted IV contrast and the wall appears mildly thickened . The uterus is surgically absent. No adnexal lesion is seen. Skeletal structures: The skeletal structures are osteopenic. There is moderate lumbosacral spondylosi s. There is chronic posttraumatic deformity and postsurgical changes seen in the left proximal femur. No lytic or blastic bony lesions are seen. IMPRESSION: 1. Again seen is complete thrombosis at the origin of the [place] superior mesenteric artery with a ce liac trunk to superior mesenteric artery bypass. 2. There is focal high-grade stenosis of the mid to distal bypass which is new from previous. There i s only trace flow. 3. There is moderate proximal stenosis of the bypass. This has progressed from previous, with a minim um patent luminal diameter of 2 mm 4. Infiltration around the bypass is nonspecific and similar to previous. 5. 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 This is also unchanged, and the vessel is reconstituted just above the bifurcation between th e hepatic artery and the splenic artery. Both of these vessels are patent. 6. Again seen is evidence of a nonspecific enteritis. An ischemic enteritis is favored given the degr ee of stenosis within the bypass. There is no pneumatosis intestinalis or portal venous gas. 7. The abdominal aorta is patent. 8. There is moderate to high-grade stenosis at the origin of the inferior mesenteric artery. 9. 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 10. Again seen are numerous low-attenuation cystic liver lesions, several of which demonstrate a bran donna appearance. This favors the sequelae of bile duct ischemia. Clinical correlation is essential. 11. Cardiomegaly and emphysema. 12. Small left pleural effusion. 13. Moderate colonic fecal retention. 14. The bladder wall appears mildly thickened. Correlate with clinical findings and urinalysis. 15. Additional findings as above. ACT 112: Negative or not required by law. Electronically signed by: James Coy M.D. 05/10/2023 1:19 PM
[2023-05-10] MEDS ORDERED: Heparin IV Adult Wt-Based Standard *NO* INITIAL Bolus Protocol IV SCH (13:25)
--- NOTE | 2023-05-10 13:29 | Discharge Summary ---
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 She reports she is having the same symptoms she was having during her prior hospitalization in March. She was hospitalized from April 15-2022 due to diarrhea, nausea, fever and generalized weakness. Initially seen in the ER the day prior to admission with initial WBC of 35.82 which improved to 22.74 after IV Zosyn given in the ER. Her WBC continued to improve with IV antibiotics initially with IV ciprofloxacin + metronidazole and later switched on advice of ID to ceftriaxone + metronidazole. WBC started to increase again on the last few days of admission while still on antibiotics, no steroids were given. Infectious disease followed patient due to liver lesions which some concerns for abscesses although unclear if interventional radiology were ever discussed regarding sample. Stool PCR and blood cultures were nega tive. She reports her symptoms significantly improved over this hospitalization although started to return just a few days after discharge getting progressively worse over the last 2 weeks. Associated chills but no objective fevers. Associated nausea and vomiting started last night. Principal Diagnosis Ischemic enteritis, stenotic SMA bypass graft, possible associated C. difficile enteritis with leukocytosis Discharge Exam General-alert and oriented x3, no fevers, no chills HEENT-head atraumatic and normocephalic, pupils equal and reactive to light, extraocular muscles intact Neck-no lymphadenopathy or thyromegaly, trachea midline Chest-clear to auscultation percussion. No rales wheezing or rhonchi Cardiac-regular rate and rhythm, normal S1 and S2 Abdomen-normal bowel sounds, no hepatosplenomegaly. Diffusely tender. No rebound or guarding Extremities-no cyanosis, clubbing, or edema Neuro-cranial nerves II through XII intact, motor and sensory function within normal limits, strength symmetrical, no focal deficits Psych-normal affect, normal mood Discharge Data Allergies Allergy/AdvReac Type Severity Reaction Status Date / Time No Known Drug Allergies Allergy . Verified 05/09/23 16:13 adhesive tape AdvReac Intermediate PULLS SKIN Verified 05/09/23 16:13 OFF Consultations 05/09/23 16:30 ED Decision to Admit Stat 05/10/23 00:39 Consult Gastroenterology Routine Consult Infectious Diseases Routine 05/10/23 09:06 Consult Vascular Surgery Routine Ordered Studies 05/09/23 13:09 CT Abd and Pelvis [CT abd pelvis IV con only] Stat 05/10/23 10:51 CTA abdomen wo/w con [CT angio abdomen wo/w con] Stat Hospital Course (1) Enteritis: With associated leukocytosis. Abdomen CTA completed. Case discussed with vascular surgery, Dr. Ahumada. She has stenosis of the SMA bypass graft and ischemic enteritis is the working diagnosis. She is now on a heparin drip. C. difficile enteritis remains a con current possibility and oral vancomycin has been started for now. GI consult requested. Dr. Ahumada has spoken to Dr. Robin Coe who did her previous SMA bypass surgery at [facility] [place] [facility] who has accepted the patient in transfer (2) A-fib: Stable. Continue diltiazem. Eliquis is temporarily on hold (3) Liver lesion: These appear to be stable and cystic. Highly unlikely that these are abscesses. Case discussed with infectious disease earlier today, May 10. (4) Pulmonary nodules: Stable. Continue outpatient follow-up with pulmonology (5) COPD (chronic obstructive pulmonary disease): Stable. Continue current medical management (6) Hyperthyroidism: Stable. Continue methimazole Plan Transfer to [facility] under the care of Dr. Robin Coe for further care. Heparin drip has been ordered per vascular surgery recommendations. Eliquis has been discontinued Total Time Total Time Spent Total Time Spent (In Minutes): 45-minute Discharge Plan Discharge Items Patient Disposition: Transfer Acute Care Hospital Reason For Visit: DIARRHEA ILLNESS Discharge Diagnosis: Ischemic enteritis, stenosis of SMA bypass graft, leukocytosis, possible conc urrent C. difficile enteritis Activity: Resume your previous activity Non-emergency contact: Primary Care Provider Call non-emergency contact if: your symptoms worsen Follow-up/Referrals: Carlton Mendez III, CRNP [Primary Care Provider] - Diet: Clear liquid Addtl Attending Provider Instructions: See primary care provider soon as possible after discharge from [facility] Pending Studies at Discharge: Yes Studies:: C. difficile toxin assay Stand-Alone Forms: My [facility] Skilled Items Patient informed of condition?: Yes DNR: No Communicable Disease: No Discharge Prognosis: Other Lines: Peripheral IV Urinary Catheter: No Medications and DC Order Prescriptions: New morphine 4 mg/mL Syringe 4 mg IV Q4H PRNQty: 0 0RF Anoro Ellipta 62.5-25 mcg/actuation Blister With Device 1 inh inhalation DAILY Qty: 0 0RF vancomycin 1,000 mg Recon Soln 250 mg PO Q6 Qty: 0 0RF Heparin-Iv Standard *No* Bolus 1 ea IV Q15M Qty: 0 0RF Continued ipratropium-albuterol 0.5 mg-3 mg(2.5 mg base)/3 mL solution for nebulization 3 ml inhalation BID PRN (Reason: shortness of breath or wheezing) Qty: 15 1RF Rx Instructions: INHALE 3 ML INHALATION TWICE A DAY NEEDED FOR SHORTNESS OF BREATH OR WHEEZING methimazole 5 mg tablet 5 mg PO DAILYBB Qty: 90 1RF Trelegy Ellipta 100-62.5-25 mcg blister with device 1 inh inhalation DAILY Qty: 60 2RF sucralfate [Carafate] 1 gram tablet 1 g PO BID Qty: 180 3RF Rx Instructions: mix one tablet with 15mls of water to make slurry then drink twice a day. benazepril 20 mg tablet 40 mg PO QPM Qty: 180 3RF diphenoxylate-atropine [Lomotil] 2.5-0.025 mg tablet 1 tab PO QID PRN (Reason: Diarrhea) diltiazem HCl 180 mg capsule,extended release 24 hr 180 mg PO DAILY atorvastatin 10 mg tablet 10 mg PO DAILY albuterol sulfate [Ventolin HFA] 90 mcg/actuation HFA aerosol inhaler 2 puff INHALATION QID PRN (Reason: Shortness Of Breath Or Wheezing) Qty: 8.5 1RF aspirin 81 mg tablet,delayed release (DR/EC) 81 mg PO DAILY latanoprost [Xalatan] 0.005 % drops 1 drp OPB HS pantoprazole 40 mg tablet,delayed release (DR/EC) 40 mg PO BID Discontinued Eliquis 2.5 mg tablet 2.5 mg PO BID 90 Days Qty: 180 3RF Discharge Orders: Discharge Order (Routine); Ordered 05/10/23 Ordered By: Eitan Alicia Admission Data Admit Date/Time: 05/09/23 19:57 Attending Provider: Eitan Alicia Admit Provider: Zak Sawyer Primary Care Provider: Carlton Mendez III Other Providers: Elva Bhardwaj Jr; Cinthya Aerllano; Mario Kolb; Kacey Bell; Dean Salvador; Kalie Ling; Thelma Zuniga; Laura Ramos; Neftaly Lainez; Swati Hi; Yashira Reilly; Zak Sawyer; Sanjeev Ahumada Coding Level of Care Code 27408 INP/OBS DISCH >30 MIN Diagnoses Enteritis K52.9 A-fib I48.91 Atrial fibrillation type: unspecified Liver lesion K76.9 Pulmonary nodules R91.8 COPD (chronic obstructive pulmonary disease) J44.9 COPD type: unspecified COPD Hyperthyroidism E05.90
[2023-05-10] MEDS ORDERED: HEPARIN SODIUM/DEXTROSE 25,000 UNITS/500 ML BAG IV SCH (13:45)
[2023-05-10 16:09] LABS: Adenovirus F 40/41 PCR Not Detected (NotDetected); Astrovirus PCR Not Detected (NotDetected); Campylobacter PCR Not Detected (NotDetected); Cryptosporidium PCR Not Detected (NotDetected); Cyclospora cayetanensis PCR Not Detected (NotDetected); Entamoeba histolytica PCR Not Detected (NotDetected); Enteroaggregative E.coli(EAEC) Not Detected (NotDetected); Enteropathogenic E.coli (EPEC) Not Detected (NotDetected); Enterotoxigenic E.coli (ETEC) Not Detected (NotDetected); Giardia lamblia PCR Not Detected (NotDetected); Norovirus GI/GII PCR Not Detected (NotDetected); Plesiomonas shigelloides PCR Not Detected (NotDetected); Rotavirus A PCR Not Detected (NotDetected); Salmonella PCR Not Detected (NotDetected); Sapovirus PCR Not Detected (NotDetected); Shiga-like Toxin E.coli (STEC) Not Detected (NotDetected); Shigella/Enteroinvasive E.coli Not Detected (NotDetected); Vibrio cholerae PCR Not Detected (NotDetected); Vibrio species PCR Not Detected (NotDetected); Yersinia enterocolitica PCR Not Detected (NotDetected)
[2023-05-10 17:04] LABS: Hematocrit (blood only) 27.8 % (37.0-47.0); Hemoglobin 8.5 g/dl (12.0-16.0); Mean Corpuscular Hemoglobin 26.6 pg (25.0-34.0); Mean Corpuscular Hgb Conc 30.6 g/dL (32.0-36.0); Mean Corpuscular Volume 86.9 fL (80.0-100.0); Mean Platelet Volume 10.7 fL (9.4-12.4); Platelet Count 270 K/uL (130-400); RDW Coefficient of Variation 21.2 % (11.5-14.5); RDW Standard Deviation 67.1 fL (36.4-46.3); White Blood Count 26.63 K/ul (4.8-10.8)
[2023-05-10 17:41] LABS: INR 1.3 (0.9-1.1); Partial Thromboplastin Ratio 1.1; Partial Thromboplastin Time 31 Seconds (21-31); Prothrombin Time 13.8 Seconds (9.0-12.0)
[2023-05-10 17:43] LABS: Acanthocytes 1+; Basophils # (auto) 0.06 K/uL (0.00-0.20); Basophils % (auto) 0.2 %; Dohle Bodies 1+; Echinocytes 1+; Eosinophils # (auto) 0.03 K/uL (0.00-0.50); Eosinophils % (auto) 0.1 %; Hypochromasia Present; Immature Granulocytes % (auto) 0.8 %; Lymphocytes # (auto) 2.07 K/uL (1.20-3.40); Lymphocytes % (auto) 7.8 %; Monocytes # (auto) 1.95 K/uL (0.11-0.59); Monocytes % (auto) 7.3 %; Neutrophils # (auto) 22.32 K/uL (1.40-6.50); Neutrophils % (auto) 83.8 %
[2023-05-10] MEDS ORDERED: cefTRIAXone SODIUM 2,000 MG in DEXTROSE 5 % MINI-B 50 ML IV SCH (18:00)
[2023-05-11 01:21] LABS: ANTI-Xa, UFH(UnfractionatedHep 0.36 IU/ml (0.3-0.7)
== END 2023-05-11 02:38 | disposition short-term general hospital (02) | DRG 392 ==
LOC: SUATTDRO → ED 12:55 → 3W 19:57 → SUATTDRO 19:57 → 3W 23:47

== ENCOUNTER 2023-05-30 09:42 | Inpatient (IN) ==
--- NOTE | 2023-05-30 09:48 | ED Triage Note ---
Date of Service May 30, 2023 Provider in Triage Author: Brendan Bocanegra History of Present Illness This patient was briefly evaluated while in triage. An abbreviated physical exam was performed. This patient is a 83-year-old Female who presents to the ED for evaluation of bleeding from head. Notes bleeding from wound repair on head. Notes bleeding all night. Physical Exam GENERAL: 83 year old female. In no acute distress. SKIN: No lesions or rashes. Bandage on head with visible blood on bandage. MUSCULOSKELETAL: No deformities to inspection of the extremities. PSYCH: Patient is pleasant and answers all questions appropriately. Initial orders for labs and / or imaging were placed and patient was placed and patient was placed directly into a room for further assessment.
[2023-05-30] MEDS ORDERED: LIDO/EPINEPHRINE/SOD BICARB 50 ML VIAL INFIL ONE (10:13)
[2023-05-30 11:25] LABS: Basophils # (auto) 0.09 K/uL (0.00-0.20); Eosinophils # (auto) 0.19 K/uL (0.00-0.50); Eosinophils % (auto) 2.1 %; Hematocrit (blood only) 30.5 % (37.0-47.0); Hemoglobin 9.6 g/dl (12.0-16.0); Immature Granulocytes # (auto) 0.03 K/uL (0.01-0.20); Immature Granulocytes % (auto) 0.3 %; Lymphocytes % (auto) 29.3 %; Mean Corpuscular Hemoglobin 27.6 pg (25.0-34.0); Mean Corpuscular Hgb Conc 31.5 g/dL (32.0-36.0); Mean Corpuscular Volume 87.6 fL (80.0-100.0); Mean Platelet Volume 10.6 fL (9.4-12.4); Monocytes % (auto) 10.1 %; Neutrophils # (auto) 5.06 K/uL (1.40-6.50); Neutrophils % (auto) 57.2 %; Platelet Count 320 K/uL (130-400); RDW Coefficient of Variation 18.9 % (11.5-14.5); RDW Standard Deviation 61.1 fL (36.4-46.3); Red Blood Count 3.48 M/uL (4.20-5.40); White Blood Count 8.87 K/ul (4.8-10.8)
[2023-05-30 11:37] LABS: Anion Gap 7 (3-11); BUN Creatinine Ratio 22.9 (10-20); Blood Urea Nitrogen 16 mg/dl (6-23); Calcium 8.4 mg/dl (8.6-10.3); Carbon Dioxide 27 mmol/L (21-32); Chloride 110 mmol/L (98-107); Est GFR (African American) 94.2 ml/min; Est GFR (Non-African American) 81.3 ml/min; Glucose 102 mg/dl (70-99(Fasting)); Potassium 4.1 mmol/L (3.5-5.1); Sodium 144 mmol/L (136-145)
[2023-05-30 12:08] LABS: INR 1.1 (0.9-1.1); Partial Thromboplastin Ratio 0.9; Partial Thromboplastin Time 24 Seconds (21-31)
[2023-05-30] MEDS ORDERED: methIMAzole 5 MG TABLET PO STA (12:08)
--- NOTE | 2023-05-30 12:08 | Emergency Department Note ---
History of Present Illness General Chief complaint: Head Injury, Minor Stated complaint: ROMY IN HEEAD, STILL BLEEDING Time Seen by Provider: 05/30/23 10:01 History of Present Illness Maximum Pain Intensity: 0 This is an 83-year-old female that presents to the emergency department via private vehicle accompanied by daughter with complaints of "bleeding head wound". The patient notes that she sustained a fall yesterday and had laceration repairs performed to a finger of the right hand as well as left side of the scalp. She states that shortly after returning home yesterday following her ED visit, she began bleeding from the left side of the scalp wound. She notes that the wound bled throughout the night. Patient currently anticoagulated on apixaban. The patient notes some abrasions to the right anterior knee, contusion to the right lateral thigh region, discomfort to the left wrist. She denies any new trauma or injury following her assessment yesterday here in the ED. No dizziness or lightheadedness. Home Medications Medication Instructions Recorded Confirmed Type latanoprost 0.005 % eye drops 1 drp OPB HS 11/20/18 05/30/23 History (Xalatan) ipratropium 0.5 mg-albuterol 3 mg 3 ml inhalation BID PRN shortness 08/24/21 05/30/23 Rx (2.5 mg base)/3 mL nebulization of breath or wheezing #15 mL soln albuterol sulfate 90 mcg/actuation 2 puff inhalation QID PRN 02/22/22 05/30/23 Rx aerosol inhaler (Ventolin HFA) Shortness Of Breath Or Wheezing #8.5 grams methimazole 5 mg tablet 5 mg PO DAILYBB #90 tabs 01/03/23 05/30/23 Rx atorvastatin 10 mg tablet 10 mg PO QPM 03/01/23 05/30/23 History sucralfate 1 gram tablet (Carafate) 1 g PO BID #180 tabs 03/26/23 05/30/23 Rx pantoprazole 40 mg tablet,delayed 40 mg PO BID 04/14/23 05/30/23 History release benazepril 20 mg tablet 40 mg (2 x 20 mg) PO QPM #180 tabs 04/29/23 05/30/23 Rx umeclidinium 62.5 mcg-vilanterol 1 inh inhalation DAILY #0 ea 05/10/23 05/30/23 Rx 25 mcg/actuation powdr for inhalation (Anoro Ellipta) acetaminophen 325 mg tablet 650 mg PO Q8H PRN pain 05/14/23 05/30/23 History apixaban 2.5 mg tablet 2.5 mg PO BID 05/14/23 05/30/23 History diltiazem HCl 240 mg 240 mg PO QAM 05/14/23 05/30/23 History capsule,extended release 24 hr cephalexin 500 mg capsule 500 mg PO Q6H 7 days #28 caps 05/29/23 05/30/23 Rx ergocalciferol (vitamin D2) 1,250 1,250 mcg PO WK 05/29/23 05/30/23 History mcg (50,000 unit) capsule fluticasone fur. 100 mcg-umeclid 1 inh inhalation UD 05/29/23 05/30/23 History 62.5 mcg-vilant 25 mcg inhalat.powder (Trelegy Ellipta) Allergies Allergy/AdvReac Type Severity Reaction Status Date / Time No Known Drug Allergies Allergy . 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 Bi Gunter historian HLD (hyperlipidemia) COPD (chronic obstructive pulmonary disease) Adrenal nodule Pulmonary nodules Vocal cord paralysis, unilateral complete Acid reflux Glaucoma History of uterine cancer dx > 5 years; treated surgically Hypertension Surgical History S/P cholecystectomy History of anesthesia reaction SLOW TO WAKE UP History of esophagogastroduodenoscopy (EGD) History of cataract surgery RT/LEFT History of total abdominal hysterectomy and bilateral salpingo-oophorectomy History of cardioversion History of colonoscopy History of endoscopy Family History Daughter Breast cancer Mother Cancer Uterine cancer Father Heart disease Sister Family history of diabetes mellitus Brother Family history of diabetes mellitus Aunt Family history of diabetes mellitus Aunt Family history of diabetes mellitus Other Family history non-contributory Hypertension No family history of adverse response to anesthesia Denies family history of Colon cancer Ovarian cancer Prostate cancer Myocardial infarction Social History Smoking Status: Former smoker Tobacco Type: Cigarettes Age Started Using Tobacco: 18; Age Quit Using Tobacco: 52; packs per day: 1; Second Hand Exposure: No; Do You Dip or Chew Tobacco: No; Hx Alcohol Use: No Hx Substance Use: No Preferred Language: Vietnamese Communication Ability: Effective Visual Impairment: Partially Limited Hearing Ability: Normal Anodic Operator Required: No Beliefs That Will Affect Care: None marital status: / Current Living Situation: Alone current occupational status: retired How many Children do You have: 3 Feels Safe at Home: Yes Safety Concerns: Feels Safe At This Time Childhood Exposure to Second-Hand Smoke: Yes Diet: regular Diet Comment: regular caffeine: Yes during the past year weight has: remained stable Dental Care, Regularly: No Physical Activity Frequency: 3-4 Times per Week Seatbelt Use: always Sunscreen Use: No Assistive Devices: Cane Review of Systems A total of 10 systems reviewed and were otherwise negative Physical Exam Vital Signs Vital Signs - 24 hr 05/30/23 09:44 05/30/23 12:00 Temperature 36.7 C Temperature Source Oral Pulse Rate 78 Pulse Rate [Left Finger] 92 H Pulse Rhythm [Left Finger] Regular Pulse Strength [Left Finger] Normal Respiratory Rate 16 14 Respiratory Effort / Characteristics Non-Labored Non-Labored Respiratory Depth Normal Normal Respiratory Pattern Regular Blood Pressure 136/75 Blood Pressure [Right Arm] 117/84 Blood Pressure Mean 95 Blood Pressure Mean [Right Arm] 95 Blood Pressure Position [Right Arm] Sitting Pulse Oximetry 96 100 Oxygen Delivery Method Room Air Room Air Sepsis Recent Fever Within 48 Hours No Sepsis New/Unexplained Change in Mental Status N/A Sepsis Action Taken by Nursing No Action Required VITAL SIGNS - Vital signs and nursing notes were reviewed. Stable and afebrile. GENERAL -83-year-old female appearing her stated age. Communicates well with provider and answers questions appropriately. SKIN -the head is wrapped with a large amount of gauze but does appear to be saturated with blood. Once gauze was removed, left scalp region demonstrates repaired laceration to the left scalp region with [address], active bleeding noted from the wound. Bandages noted and splinting to the right second digit and right fourth digit of the right hand. Abrasions with overlying gauze wrap to the right anterior knee noted. Small contusion to the right anterior lateral thigh region. HEAD - Normocephalic. Skin as above. No Tran's Sign or Raccoon's Eyes. No depressed skull fractures palpable. EYES - PERRL with EOMI bilaterally. Without subconjunctival hemorrhage. Palpebral conjunctiva pink and moist with no injection. EARS - No deformities of external structures noted on gross examination bilaterally. No hemotympanum present. No tympanic perforation noted. Handle of malleus, umbo, cone of light, pars tensa/flaccid all easily visualized. NOSE - Midline and without cyanosis. No epistaxis or clear watery discharge noted. Septum midline without deviation. No septal hematoma noted. No overlying ecchymosis noted. MOUTH/OROPHARYNX - Without perioral cyanosis. Tongue midline with equal elevation of palate bilaterally. No blood noted in the oropharynx. No tonsillar hypertrophy, erythema, or exudates noted. No dental fractures noted. NECK - no tenderness to palpation over the cervical spinous processes. No cervical paraspinal muscle tenderness noted. LUNGS -clear to auscultation. CARDIAC - IRR EXTREMITIES -left dorsal wrist region with edema and ecchymosis present throughout the left wrist. Small contusion to the left proximal lateral thigh region. Abrasions to the right anterior knee. No gross deformities noted of the extremities. +5/5 strength noted in UE/LE bilaterally. NEUROLOGIC - Cranial nerves II through XII grossly intact. PSYCH - A&Ox3 and cooperates fully with examiner. Pt is very pleasant and interacts well with examiner. Course Administered Medications Acetaminophen (Acetaminophen 325 Mg Tab) 650 mg PO Q4H PRN PRN Reason: pain/fever Stop: 06/29/23 14:00 Last Admin: 05/31/23 05:34 Dose: 650 mg Documented By: Admin: 05/31/23 00:02 Dose: 650 mg Documented By: Admin: 05/30/23 18:27 Dose: 650 mg Documented By: KAT Atorvastatin Calcium (Atorvastatin 10 Mg Tab) 10 mg PO QPM [facility] Stop: 06/29/23 20:59 Last Admin: 05/30/23 21:55 Dose: 10 mg Documented By: TKNeelima Cephalexin HCl (Cephalexin 500 Mg Cap) 500 mg PO Q6H [facility]; Protocol Stop: 06/01/23 16:14 Last Admin: 05/31/23 03:15 Dose: 500 mg Documented By: Admin: 05/30/23 21:55 Dose: 500 mg Documented By: Admin: 05/30/23 17:11 Dose: 500 mg Documented By: KAT Enalapril Maleate (Enalapril Maleate 10 Mg Tab) 40 mg PO QPM [facility]; Protocol Stop: 06/29/23 20:59 Last Admin: 05/30/23 21:54 Dose: 40 mg Documented By: MICAH Latanoprost (Latanoprost 0.005% Op Soln 2.5 Ml Btl) 1 drops OPB HS [facility] Stop: 06/29/23 20:59 Last Admin: 05/30/23 21:55 Dose: 1 drops Documented By: MICAH Methimazole (Methimazole 5 Mg Tablet) 5 mg PO DAILYBB [facility] Stop: 06/30/23 06:29 Last Admin: 05/31/23 05:30 Dose: 5 mg Documented By: MICAH Pantoprazole Sodium (Pantoprazole 40 Mg Tab) 40 mg PO BID [facility] Stop: 06/29/23 20:59 Last Admin: 05/30/23 21:54 Dose: 40 mg Documented By: MICAH Sucralfate (Sucralfate 1 Gm Tab) 1 gm PO BID [facility] Stop: 06/29/23 20:59 Last Admin: 05/30/23 21:55 Dose: 1 gm Documented By: MICAH Discontinued Medications Lidocaine/Epinephrine (Lido/Epinephrine/Sod Bicarb 50 Ml Vial) 20 ml INFIL NOW ONE Stop: 05/30/23 10:14 Last Admin: 05/30/23 12:06 Dose: 20 ml Documented By: DANIELLE Methimazole (Methimazole 5 Mg Tablet) 5 mg PO NOW STA Stop: 05/30/23 12:09 Last Admin: 05/30/23 12:34 Dose: 5 mg Documented By: KAT Medical Decision Making Laboratory Data 05/30/23 11:01 05/30/23 11:01 Lab Results 05/30/23 Range/Units 11:01 WBC 8.87 (4.8-10.8) K/ul RBC 3.48 L (4.20-5.40) M/uL Hgb 9.6 L (12.0-16.0) g/dl Hct 30.5 L (37.0-47.0) % MCV 87.6 (80.0-100.0) fL MCH 27.6 (25.0-34.0) pg MCHC 31.5 L (32.0-36.0) g/dL RDW Std Deviation 61.1 H (36.4-46.3) fL RDW Coeff of Rosio 18.9 H (11.5-14.5) % Plt Count 320 (130-400) K/uL MPV 10.6 (9.4-12.4) fL Immature Gran % (Auto) 0.3 % Neut % (Auto) 57.2 % Lymph % (Auto) 29.3 % Ponce % (Auto) 10.1 % Eos % (Auto) 2.1 % Baso % (Auto) 1.0 % Neut # (Auto) 5.06 (1.40-6.50) K/uL Lymph # (Auto) 2.60 (1.20-3.40) K/uL Ponce # (Auto) 0.90 H (0.11-0.59) K/uL Eos # (Auto) 0.19 (0.00-0.50) K/uL Baso # (Auto) 0.09 (0.00-0.20) K/uL Immature Gran # (Auto) 0.03 (0.01-0.20) K/uL PT 12.0 (9.0-12.0) Seconds INR 1.1 (0.9-1.1) APTT 24 (21-31) Seconds PTT Ratio 0.9 Sodium 144 (136-145) mmol/L Potassium 4.1 (3.5-5.1) mmol/L Chloride 110 H (98-107) mmol/L Carbon Dioxide 27 (21-32) mmol/L Anion Gap 7 (3-11) BUN 16 (6-23) mg/dl Creatinine 0.70 (0.6-1.2) mg/dl Est Cr Clr Drug Dosing Not Reportable Est GFR ( Amer) 94.2 ml/min Est GFR (Non-Af Amer) 81.3 ml/min BUN/Creatinine Ratio 22.9 H (10-20) Glucose 102 H (70-99(Fasting)) mg/dl Calcium 8.4 L (8.6-10.3) mg/dl Blood Type A Positive Antibody Screen NEGATIVE Imaging Data Radiologist's Impression: Hip X-Ray 05/30/23 13:35 XR hip RT min 2V CLINICAL HISTORY: Fall, R hip pain COMPARISON STUDY: None. FINDINGS: No fracture or dislocation within the right hip. The visualized pelvic bones are intact. Vascular calcifications are noted. There is [id number] osteoarthritis within the right hip. IMPRESSION: No fracture or dislocation within the right hip. ACT 112: Negative or not required by law. Electronically signed by: Leonard Lucia M.D. 05/30/2023 3:01 PM MDM Narrative Patient was seen and evaluated as above initially in the triage room then immediately in room D06 then A03. Review was performed of nursing notes and vital signs. I did review pertinent previous visits and patient history. After obtaining a thorough history and physical examination the above work up was performed. Patient presents to us today for assessment of continuing bleeding from the left side of the scalp. She does have active bleeding present on exam as the gauze appears to be saturated on the scalp. There is a splinting and gauze noted to digits 2 and 4 of the right hand as well as right anterior knee. No new trauma or injury since her evaluation yesterday. She is here today because her head wound continues to bleed. She lives alone. She is here today with her daughter. I did review the imaging as performed yesterday. Patient underwent head and C-spine CT, right hand and left forearm x-ray, as well as right knee x-ray. Options of care were discussed with patient as well as daughter. Immediately the gauze from the head was removed and the site of the bleed was identified on the left side of the scalp at the laceration. Consent was obtained and the 2 romy were removed. I did have to trim away the hair to better visualize the bleeding. Area was then irrigated with sterile saline and iodine. The wound is approximately 3 cm in length. At this time decision was made to proceed with suture repair. Region was anesthetized with 3 cc of 1% buffered lidocaine with epinephrine which provided improved hemostasis. 6, 4-0 nylon sutures were placed. Hemostasis was achieved. No further bleeding. This area was reevaluated several times over several hours and no further bleeding was noted. The hair was cleansed of all the dried blood by nursing staff. Bacitracin was applied to the wound. The patient did have a contusion to the right lateral proximal thigh region which I did workup here via x-ray of the right hip. This was negative. Reassuringly the patient has actually improved hemoglobin compared to previous today now at 9.6. Coags are normal. No emergent metabolic disturbance. Type and screen was performed. There was a radiology discrepancy provided to me from the patient's recent visit regarding the left wrist. Distal radius fracture noted. Patient is already in a Velcro type splint which will provide adequate immobilization but at this time we will transition to Ortho- Glass splint. Unfortunately the patient had a fair amount of attempts at IV placement here and the IV that was able to be established was in the left upper extremity therefore temporarily deferred Ortho-Glass pending new line placement. Volar Ortho-Glass applied to the left wrist. The patient does live alone. She is anticoagulated. She has splints to 2 fingers on the right hand and a left wrist fracture. I do believe that her fall risk is elevated and in the setting of anticoagulation and concerned about her returning home today. I discussed options with family as well as the patient. Through shared decision making we elected to proceed with inpatient management and possible placement to short- term in a rehab like setting pending improvement. The patient was amenable to proceeding. Case discussed with the hospitalist. Please refer to further documentation regarding her stay. In regard to the left wrist fracture there is no evidence of open injury. She is neurovascularly intact. In regard to the right upper extremity finger wounds I did undo the bandages and cleanse the fingers. 2 sutures noted to the distal right fourth digit without sign of infection. I recommend removal of the sutures from the scalp in 10 days. GCS: 15 In the evaluation and treatment of this patient the following differential diagnoses were entertained: Scalp laceration, concussion, intracranial hemorrhage, anemia, among others. Impression & Plan Fall, Anemia, Anticoagulated, Bleeding from wound, Abrasion of knee, right, Contusion of right thigh, Closed fracture of left wrist Discharge Plan Visit Data Chief Complaint: Head Injury, Minor Stated Complaint: ROMY IN HEEAD, STILL BLEEDING ED Provider: Tam Wise ED Midlevel Provider: Brendan Bocanegra Discharge Problem: Fall, Anemia, Anticoagulated, Bleeding from wound, Abrasion of knee, right, Contusion of right thigh, Closed fracture of left wrist Patient Disposition: Admitted As Inpatient Condition: Good Discharge Instructions Interventions: ED Discharge Assessment Last Done: 05/30/23 16:15
--- NOTE | 2023-05-30 13:42 | History & Physical Report ---
Date of Service May 30, 2023 Assessment & Plan (1) Fall: Plan: Fall 05/29 Right knee x-ray: No acute bony abnormality CThead: No acute intracranial abnormality X-ray right hand: No acute fracture, osteopenia and arthritic change X-ray left forearm: Impacted fracture of the distal radius and overlying soft tissue edema. CTC-spine: No acute fracture/subluxation X-ray hip/pelvis: Pending With ambulatory dysfunction, immobilized left hand and limited use of right hand and falls patient is not able to meet independent goals at home at this time. PT/OT/CM consulted for placement evaluation Head wound sutured after greater than 6 hours, increased risk of infection and will continue prophylactic course of Keflex 500 mg p.o. every 6 hours (2) SMAS (superior mesenteric artery syndrome): Plan: History of mesenteric ischemia S/p supraceliac aorta to SMA/celiac coronary bypass 2021 with recurrent chronic mesenteric ischemia. S/p aorto to SMA stent placement and balloon angiogram 05/11/2023, followed in the SICU at [facility] and subsequently progressed with good pain control. Was discharged 05/13/2023. No recurrent symptoms (3) Liver lesion: Plan: Liver lesions Stable and cystic Unlikely to be abscesses, previously discussed with infectious disease 04/2023 No acute change (4) Pulmonary nodules: Plan: Pulmonary nodules Stable, outpatient follow-up (5) COPD (chronic obstructive pulmonary disease): Plan: COPD Chronic, stable, no acute exacerbation Continue home inhalers (6) Atrial fibrillation: Plan: Atrial fibrillation Eliquis temporarily held due to bleeding and fractures, resume 05/31 if hemoglobin stable and no additional bleeding. Increased risk due to recent injuries and decreased ambulatory ability Continue diltiazem EKG 05/29/2023 A-fib with rate of 107 no acute ischemic changes, EKG 05/30/2023 pending at bedside is irregularly irregular rate in the 90s. No chest pain (7) Hyperthyroidism: Plan: Hyperthyroidism Stable, continue methimazole Plan DVT prophylaxis: Resume anticoagulation 05/31 Diet: Heart healthy Disposition: Medical/surgical. CODE STATUS: Full code History of Present Illness Primary Care Provider: Carlton Mendez, III, [employer] TECH[employer]ICIAN with past medical history of atrial fibrillation on Eliquis, liver lesions stable and cystic on prior evals with very low likelihood for abscess and discussed with infectious disease at previous admission 05/10, stable pulmonary nodules, COPD, and hypothyroidism who fell yesterday and was seen in the ER. Following this she had reassuring imaging studies, head wound was reapproximated with romy and patient was discharged home. Unfortunately she returned home and her head wound continued to bleed soaking multiple dressings overnight. She Memo presented today, sutures were removed, and head wound was reapproximated with 6 sutures to be removed in 10 days. No further bleeding. Despite significant bleeding her hemoglobin actually increased, although patient with poor p.o. intake and slightly volume contracted. No further bleeding following suture reapproximation. She did have review of her x-rays and was noted to have a left wrist fracture was splinted and pending Ortho-Glass. She also has 2 right hand sutures with wraps and right hip pain although no fracture of the right hip. Due to her living alone, being anticoagulated, and now wi without use of her left hand due to fracture and right hand with suture/wraps and limited with pain she is not felt to be safe for return home at this time. She is recommended for PT/OT and placement evaluation. This was discussed with patient's family by the ER provider, patient is willing to look for placement alternatives although does note a poor experience with rehab in the past. She is seen at the bedside. She reports that her fall was purely mechanical, she slipped taking out the garbage and missed a step which caused her to fall. She did not have and continues to not have any chest pain, chest pressure, shortness of breath, lightheadedness, dizziness. Denies syncope/presyncope. No nausea/vomiting/abdominal pain. No diarrhea. She notes her right hip is sore but she is able to flex and extend her hip with good range of motion and is able to laterally abduct the hip without significant pain. She notes that she does have some discomfort in her left wrist which is improved with her splint. Medical History: Reviewed Medications: Reviewed Surgical History: Reviewed Family history: Reviewed Allergies: Reviewed Social History: Former tobacco/alcohol use no recent use Code Status: Full code. Allergies Allergy/AdvReac Type Severity Reaction Status Date / Time No Known Drug Allergies Allergy . Verified 05/29/23 20:25 adhesive tape AdvReac Intermediate PULLS SKIN Verified 05/29/23 20:25 OFF Home Medications Medication Instructions Recorded Confirmed Type latanoprost 0.005 % eye drops 1 drp OPB HS 11/20/18 05/30/23 History (Xalatan) ipratropium 0.5 mg-albuterol 3 mg 3 ml inhalation BID PRN shortness 08/24/21 05/30/23 Rx (2.5 mg base)/3 mL nebulization of breath or wheezing #15 mL soln albuterol sulfate 90 mcg/actuation 2 puff inhalation QID PRN 02/22/22 05/30/23 Rx aerosol inhaler (Ventolin HFA) Shortness Of Breath Or Wheezing #8.5 grams methimazole 5 mg tablet 5 mg PO DAILYBB #90 tabs 01/03/23 05/30/23 Rx atorvastatin 10 mg tablet 10 mg PO QPM 03/01/23 05/30/23 History sucralfate 1 gram tablet (Carafate) 1 g PO BID #180 tabs 03/26/23 05/30/23 Rx pantoprazole 40 mg tablet,delayed 40 mg PO BID 04/14/23 05/30/23 History release benazepril 20 mg tablet 40 mg (2 x 20 mg) PO QPM #180 tabs 04/29/23 05/30/23 Rx umeclidinium 62.5 mcg-vilanterol 1 inh inhalation DAILY #0 ea 05/10/23 05/30/23 Rx 25 mcg/actuation powdr for inhalation (Anoro Ellipta) acetaminophen 325 mg tablet 650 mg PO Q8H PRN pain 05/14/23 05/30/23 History apixaban 2.5 mg tablet 2.5 mg PO BID 05/14/23 05/30/23 History diltiazem HCl 240 mg 240 mg PO QAM 05/14/23 05/30/23 History capsule,extended release 24 hr cephalexin 500 mg capsule 500 mg PO Q6H 7 days #28 caps 05/29/23 05/30/23 Rx ergocalciferol (vitamin D2) 1,250 1,250 mcg PO WK 05/29/23 05/30/23 History mcg (50,000 unit) capsule fluticasone fur. 100 mcg-umeclid 1 inh inhalation UD 05/29/23 05/30/23 History 62.5 mcg-vilant 25 mcg inhalat.powder (Trelegy Ellipta) Past Med/Surg History Medical History (Updated 05/30/23 @ 13:58 by Corwin Elise MD) Hyperthyroidism Mesenteric artery thrombosis A-fib LPRD (laryngopharyngeal reflux disease) COPD (chronic obstructive pulmonary disease) Liver lesion COVID-19 Aspiration pneumonitis Leukocytosis (leucocytosis) Chronic renal failure (CRF), stage 3b Toxic multinodular goiter Hypertension Atrial fibrillation Osteoporosis Pleural effusion due to congestive heart failure Multiple pulmonary nodules determined by computed tomography of lung Chronic obstructive pulmonary disease TIA (transient ischemic attack) SMAS (superior mesenteric artery syndrome) COHN (dyspnea on exertion) Atrial fibrillation Dx 4-5 years ago; on xarelto; hx cardioversion; follows with Dr. Bi Gunter historian HLD (hyperlipidemia) COPD (chronic obstructive pulmonary disease) Adrenal nodule Pulmonary nodules Vocal cord paralysis, unilateral complete Acid reflux Glaucoma History of uterine cancer dx > 5 years; treated surgically Hypertension Surgical History S/P cholecystectomy History of anesthesia reaction SLOW TO WAKE UP History of esophagogastroduodenoscopy (EGD) History of cataract surgery RT/LEFT History of total abdominal hysterectomy and bilateral salpingo-oophorectomy History of cardioversion History of colonoscopy History of endoscopy Family History Daughter Breast cancer Mother Cancer Uterine cancer Father Heart disease Sister Family history of diabetes mellitus Brother Family history of diabetes mellitus Aunt Family history of diabetes mellitus Aunt Family history of diabetes mellitus Other Family history non-contributory Hypertension No family history of adverse response to anesthesia Denies family history of Colon cancer Ovarian cancer Prostate cancer Myocardial infarction Social History Smoking Status: Former smoker Tobacco Type: Cigarettes Age Started Using Tobacco: 18; Age Quit Using Tobacco: 52; packs per day: 1; Second Hand Exposure: No; Do You Dip or Chew Tobacco: No; Hx Alcohol Use: No Hx Substance Use: No Preferred Language: Jordanian Communication Ability: Effective Visual Impairment: Partially Limited Hearing Ability: Normal Human Resources Communications Manager Required: No Beliefs That Will Affect Care: None marital status: / Current Living Situation: Alone current occupational status: retired How many Children do You have: 3 Feels Safe at Home: Yes Childhood Exposure to Second-Hand Smoke: Yes Diet: regular Diet Comment: regular caffeine: Yes during the past year weight has: remained stable Dental Care, Regularly: No Physical Activity Frequency: 3-4 Times per Week Seatbelt Use: always Sunscreen Use: No Assistive Devices: None Physical Exam Physical Exam: General: A&Ox3. NAD. Cooperative. HEENT:Left temporal sutures intact, no ongoing bleeding. Pupils equal and reactive to light. Vision and hearing grossly intact Pulm: CTAB A&P. -wheezes, -rales, -rhonchi. Symmetrical chest rise. No increased work of breathing. No respiratory distress. Cardiac: Irregularly irregular, rate controlled. Radial pulses intact and symmetrical. Abdominal: Nontender, nondistended, soft. BS present. Extremities: Left wrist in splint with underlying contusion. Sensation intact in all fingertips and finger extension/flexion is intact in the left hand. Cap refill in left hand is brisk. Right hand with fourth digit in splint and wrapped, second digit in splint and wrapped. Sensation to soft touch is intact, radial pulses intact. Lower extremities are without edema, sensation in the feet is intact bilaterally. Ankle dorsiflexion/plantarflexion and hip flexion are 5/5 bilaterally. Right hip is mildly tender to palpation but active flexion/extension at the hip and hip abduction are all intact without pain. Results & Data Results & Data Vital Signs (Past 12 Hours) Vital Signs Temp Pulse Pulse Resp BP BP Pulse Ox 05/30/23 12:00 92 H 14 117/84 100 05/30/23 09:44 36.7 C 78 16 136/75 96 O2 Del Method 05/30/23 12:00 Room Air 05/30/23 09:44 Room Air PG Care Time/CCT Total # of Minutes Spent Total Time Spent with Patient: Total time spent is greater than 50% in coordination of care (as documented) at patient's floor/unit and/or counseling patient: Coding Level of Care Code 45826 INT INP/OBS CARE 2/55MIN Diagnoses Fall W19.XXXA Encounter type: initial encounter SMAS (superior mesenteric artery syndrome) K55.1 Liver lesion K76.9 Pulmonary nodules R91.8 COPD (chronic obstructive pulmonary disease) J44.9 COPD type: unspecified COPD Longstanding persistent atrial fibrillation I48.11 Atrial fibrillation type: longstanding persistent Hyperthyroidism E05.90 (1) Fall Encounter type: initial encounter Qualified Code(s): W19.XXXA - Unspecified fall, initial encounter (5) COPD (chronic obstructive pulmonary disease) COPD type: unspecified COPD Qualified Code(s): J44.9 - Chronic obstructive pulmonary disease, unspecified (6) Atrial fibrillation Atrial fibrillation type: longstanding persistent Qualified Code(s): I48.11 - Longstanding persistent atrial fibrillation
--- NOTE | 2023-05-30 15:02 | XRay Report ---
XR hip RT min 2V CLINICAL HISTORY: Fall, R hip pain COMPARISON STUDY: None. FINDINGS: No fracture or dislocation within the right hip. The visualized pelvic bones are intact. Va scular calcifications are noted. There is [id number] osteoarthritis within the right hip. IMPRESSION: No fracture or dislocation within the right hip. ACT 112: Negative or not required by law. Electronically signed by: Leonard Lucia M.D. 05/30/2023 3:01 PM
[2023-05-30] MEDS ORDERED: ALBUTEROL HFA 8 GM INHALER INH PRN (16:15)
[2023-05-30] MEDS ORDERED: NON-FORMULARY MEDICATION (Fluticasone-Umeclidin-Vilanter [Trelegy Ellipta] 100-62.5-25 mcg INH SCH (16:15)
[2023-05-30] MEDS ORDERED: ACETAMINOPHEN 325 MG TAB PO PRN (16:15)
[2023-05-30] MEDS ORDERED: ALBUT/IPRATROP 3MG/0.5MG NEB 3 ML VIAL INH PRN (16:15)
[2023-05-30] MEDS ORDERED: Patient's HEIGHT &/or WEIGHT Needed SCH (16:30)
[2023-05-30] MEDS: cephALEXin 500 MG CAP PO SCH ×2 (17:11→21:55)
--- OUTSIDE RECORDS SUMMARY | 2023-05-30 17:32 | External Medical Summary | Continuity of Care Document ---
Author Name Unknown Organization [facility] Address [address] [place] [address] [phone] Care Team Providers Care Marine Erector Name Role Phone Ciara Mendez Russell Primary Care Physician [phone] [facility] [id number] Date(s): 05/11/23 - 05/13/[address] [phone] Encounter Diagnosis Ischemia, bowel(Discharge Diagnosis) - 05/11/23 Discharge Disposition: Home or Self Care Attending Physician: MD Carolin, Robin James Admitting Physician: MD De Anda Amanda B Referring Physician: MD Alicia Robert R Allergies, Adverse Reactions, Alerts No Known Allergies Assessment and Plan Extracted from: Title:post op call Author:SHELIA Tubbs, Carissa Lozada te:05/14/23 VASCULAR SURGERY DISCHARGE FOLLOW UP HOME CALL Name: LOGAN MARCELINO Patient Number: [id number] : 1940 Date of Service: 05/14/2023 Surgical Hospital Day/Procedure: 05/11/2023 SURGEON: Robin Coe MD PARK INTERPRETIVE RANGER(s): Dr. Gr PREOPERATIVE DIAGNOSIS: Acute on chronic mesenteric ischemia POSTOPERATIVE DIAGNOSIS: Acute on chronic mesenteric ischemia OPERATION PERFORMED: Ultrasound-guided access of left radial artery Left upper extremity angiogram Diagnostic mesenteric angiogram Balloon angioplasty of SMA bypass (5 x 80 mm balloon) Aorto to SMA bypass stent placement (VBX 6 x 79 mm stent with post stent placement balloon angioplasty 5 x 80 mm balloon and proximal flare using 8 x 2 mm balloon) Completion mesenteric angiogram Coil embolization of left radial artery (6 x 3 mm Cook questionable coils x 2) Day of Hospital Discharge: 05/13/2023 Follow-Up Appointment: Chief Complaints Yes No Comment Pain _ x_ Increased? __ Y/N __ Level: _/10 L lower arm is tender to touch, but no pain in arm, hand or abdomen Incision/Puncture Drainage/ _ _x Drainage Increased: __ Y/N __ Dressing Changes/day: _ Dressing to wrist intact, will remove to shower. Reviewed care of incision - let water/soap run over and pat dry. Cover as needed Bleeding x Description: _ Location: _ Swelling x_ _ Increased? __ Y/N _x_ Feels swelling to arm is less today. Remains ecchymotic Redness _ _x Increased? __ Y/N __ Warm to Touch? __ Y/N _x_ Fever _ x_ T-Max: _ GI Review N/V _ _x Regular BMs x_ _ Had BM today that was not diarrhea Neurologic _ x_ Weakness: __ Y/N _x_ Denies weakness to L arm/hand Changes Headache: __ Y/N __ Affected Speech: __ Y/N __ x Numbness/Tingling: _ Denies to L hand Baseline _x _ Walker/Cane: __ Y/N __ Ambulatory Level Physical Therapy Involved: __ Y/N __ Current Home Meds: (Last Updated 05/13 08:29) acetaminophen (Tylenol 325 mg oral tablet) 650 mg PO q8h PRN: pain - mild (1-3) Tkae 2 tablets only if needed for pain every 8 hours.not to exceed 4000 mg/day albuterol-ipratropium (albuterol-ipratropium 2.5 mg-0.5 mg/3 mL inhalation solution) USE 1 VIAL VIA NEBULIZER TWICE DAILY NEEDED FOR SHORTNESS OF BREATH OR WHEEZING albuterol (Albuterol (Eqv-ProAir HFA) 90 mcg/inh inhalation aerosol) 2 puff inhaled q6h PRN: shortness of breath apixaban (Eliquis 2.5 mg oral tablet) 2.5 mg PO bid TAKE 1 TABLET BY MOUTH TWICE A DAY atorvastatin (atorvastatin 10 mg oral tablet) 10 mg PO qhs benazepril 40 mg PO qPM clopidogrel (Plavix 75 mg oral tablet) 75 mg PO Daily 1 tablet by mouth daily dilTIAZem (DilTIAZem (Eqv-Cardizem CD) 240 mg/24 hours oral capsule, extended release) 240 mg PO qAM fluticasone/umeclidinium/vilanterol (Trelegy Ellipta 100 mcg-62.5 mcg-25 mcg/inh inhalation powder) 2 puff inhaled Daily latanoprost ophthalmic (latanoprost 0.005% ophthalmic solution) 1 drop both eyes qhs Store intact bottles under refrigeration. Once opened, the container may be stored at room temperature for 6 weeks. Andreina Manley 03/05 13:54 methIMAzole (methIMAzole 5 mg oral tablet) 5 mg PO qAM mirtazapine (mirtazapine 7.5 mg oral tablet) TAKE 1 TABLET BY MOUTH EVERY DAY pantoprazole (pantoprazole 40 mg oral delayed release tablet) 40 mg PO bid Narrative/Action Plan: _ Post op information obtained from patient over the phone. Denies abdominal pain. Denies pain, numbness, tingling to hand. Understands need to call if she develops these symptoms. Also spoke to Latesha, patient's lay care provider; reviewed that she or patient should call if patient experiences above symptoms. Also confirmed that patient stopped ASA and is taking Eliquis and Plavix. Confirmed first f/u appt. in [place]. Carissa Tubbs RN, BSN Vascular Surgery Clinical Group TeacherHeat Treater Status 05/13/23 Neurological Symptoms None ADLs Minimal assistance Facial Symmetry Symmetric Gait Steady Swallowing Difficulty None Level of Consciousness Neuro Alert Hallucinations Present None History of Fall in Last 3 Months Smith Y es Presence of Secondary Diagnosis Smith Ye s Use of Ambulatory Aid Smith None/bedrest /nurse assist IV/Heparin Lock Fall Risk Smith Yes Gait/Transferring Fall Risk Smith Normal /bedrest/immobile Mental Status Fall Risk Smith Oriented t o own ability Smith Fall Risk Score 60 Smith Fall Risk High risk Speech Pattern Clear Medications Albuterol (Eqv-ProAir HFA) 90 mcg/inh inhalation aerosol Start: 03/05/22 13:53:00 EDT, 2 puff, inhaled, q6h, PRN: shortness of breath Start Date: 03/05/22 Status: Ordered albuterol-ipratropium 2.5 mg-0.5 mg/3 mL inhalation solution USE 1 VIAL VIA NEBULIZER TWICE DAILY NEEDED FOR SHORTNESS OF BREATH OR WHEEZING Start Date: 03/05/22 Status: Ordered atorvastatin 10 mg oral tablet Start: 03/05/22 13:53:00 EDT, 1 tab, PO, qhs Start Date: 03/05/22 Status: Ordered benazepril Start: 05/02/22 10:08:00 EST, 40 mg =, PO, qPM Start Date: 05/02/22 Status: Ordered DilTIAZem (Eqv-Cardizem CD) 240 mg/24 hours oral capsule, extended release 1 cap, PO, qAM Start Date: 03/05/22 Status: Ordered Eliquis 2.5 mg oral tablet Start: 05/13/23 8:27:00 EST, 1 tab, PO, bid, Disp# 60 tab, Refills: 3, TAKE 1 TABLET BY MOUTH TWICEA DAY, Pharmacy: [facility] Start Date: 05/13/23 Status: Ordered latanoprost 0.005% ophthalmic solution Start: 03/05/22 13:53:00 EDT, 1 drop, both eyes, qhs Start Date: 03/05/22 Status: Ordered methIMAzole 5 mg oral tablet 1 tab, PO, qAM Start Date: 03/05/22 Status: Ordered mirtazapine 7.5 mg oral tablet TAKE 1 TABLET BY MOUTH EVERY DAY Start Date: 01/10/23 Status: Ordered pantoprazole 40 mg oral delayed release tablet Start: 03/05/22 13:53:00 EDT, 1 tab, PO, bid Start Date: 03/05/22 Status: Ordered Plavix 75 mg oral tablet Start: 05/13/23 8:28:00 EST, 1 tab, PO, Daily, Disp# 30 tab, Refills: 3, 1 tablet by mouth daily, Pharmacy: [facility] Start Date: 05/13/23 Status: Ordered Trelegy Ellipta 100 mcg-62.5 mcg-25 mcg/inh inhalation powder Start: 05/02/22 10:10:00 EST, See Instructions, 2 puff inhaled Daily Start Date: 05/02/22 Status: Ordered Tylenol 325 mg oral tablet Start: 05/13/23 8:17:00 EST, 2 tab, PO, q8h, Disp# 24 tab, Refills: 0, Tkae 2 tablets only if needed for pain every 8 hours. not to exceed 4000 mg/day, PRN: pain - mild (1-3), Pharmacy: [id number] Start Date: 05/13/23 Status: Ordered Mental Status 05/11/23 Communication Barrier Present No Primary Language Hong Konger Problem List Condition Confirmation Course Effective Dates Status H ealth Status Informant Chronic mesenteric ischemia Confirmed Active Hyperthyroidism Confirmed Active Superior mesenteric artery stenosis Confirmed Active Diagnosis Diagnosis Type Effective Dates Health Status Cl inical Service Informant Ischemia, bowel Discharge Diagnosis 05/11/23 Non-Specified Procedures Procedure Date Related Diagnosis Body Site Status Tongue cancer removed 2021 Com pleted Appendectomy Completed Colonoscope Completed Hysterectomy Completed Results Laboratory List Name Date Complete Blood Count (CBC w Platelets) 1 07/14/22 Magnesium Level 05/13/23 Nephrology Panel 05/13/23 Partial Thromboplastin Time (PTT) Partial Thromboplastin Time (PTT) Complete Blood Count (CBC w Platelets) 1 07/13/22 Magnesium Level 05/12/23 Nephrology Panel 05/12/23 Partial Thromboplastin Time (PTT) Calcium, Ionized 05/12/23 Magnesium Level 05/12/23 Nephrology Panel 05/12/23 Complete Blood Count (CBC w Platelets) 1 07/13/22 Calcium, Ionized (Ionized Calcium) 05/11 Lactic Acid Level 05/11/23 MRSA Surveillance (Nasal Swab) 05/11/23 Lactic Acid Level 05/11/23 Lactic Acid Level 05/11/23 ATC, Celite, by I-Stat (Anes) (ACT CELIT E ISTAT (ANES)) 05/11/23 ATC, Celite, by I-Stat (Anes) (ACT CELIT E ISTAT (ANES)) 05/11/23 IStat Gases, Arterial (ANES) (I-STAT GAS ,ART(ANES)) 05/11/23 ATC, Celite, by I-Stat (Anes) (ACT CELIT E ISTAT (ANES)) 05/11/23 IStat Gases, Arterial (ANES) (I-STAT GAS ,ART(ANES)) 05/11/23 Blood Type/Antibody Screen ( for possible transfusion) (Type and Screen (for possible transfusion)) 05/11/23 Prothrombin Time w/ INR (PT/INR) 3 Most recent to oldest [Reference Range]: 1 2 3 Hct, POC [38-51 %] 26 % *LOW* (05/11/23 12:20 PM) 27 % *LOW* (05/11/23 9:58 AM) Hgb, POC [12-17 g/dL] 8.8 g/dL *LOW* (05/11/23 12:20 PM) 9.2 g/dL *LOW* (05/11/23 9:58 AM) ABO/Rh A POSITIVE (05/11/23 6:34 AM) Antibody Scr NEGATIVE (05/11/23 6:34 AM) Expires at 0600AM on 05/14/2023 (05/11/23 6:34 AM) # Units 2 (05/11/23 6:34 AM) R Number NRQ (05/11/23 6:34 AM) eGFR CKD-EPI [>60 mL/min/1.73 m2] 87 mL/min/1.73 m2 (05/13/23 6:07 AM) 88 mL/min/1.73 m2 (05/12/23 4:36 PM) >90 mL/min/1.73 m2 (05/12/23 3:47 AM) Glu (wb), POC by IStat [70-105 mg/dL] 96 mg/dL (05/11/23 12:20 PM) 88 mg/dL (05/11/23 9:58 AM) SaO2(a), POC [92-98 %] 100 % *HI* (05/11/23 12:20 PM) 100 % *HI* (05/11/23 9:58 AM) Estimated CrCl 45.53 mL/min (05/13/23 6:53 AM) 46.89 mL/min (05/12/23 5:38 PM) 61.59 mL/min (05/11/23 11:02 PM) MPV [9.0-12.2 fL] 10.6 fL (05/13/23 6:07 AM) 11.0 fL (05/12/23 4:36 PM) 11.1 fL (05/12/23 3:47 AM) RDW [11.5-14.2 %] 19.1 % *HI* (05/13/23 6:07 AM) 18.6 % *HI* (05/12/23 4:36 PM) 18.6 % *HI* (05/12/23 3:47 AM) pH (a), POC [7.35-7.45 unit] 7.383 unit (05/11/23 12:20 PM) 7.420 unit (05/11/23 9:58 AM) pCO2 (a), POC [35-45 mmHg] 42.3 mmHg (05/11/23 12:20 PM) 38.6 mmHg (05/11/23 9:58 AM) pO2 (a), POC [80-105 mmHg] 269 mmHg *HI* (05/11/23 12:20 PM) 287 mmHg *HI* (05/11/23 9:58 AM) Base XS(a), POC 0 mmol/L (05/11/23 12:20 PM) 0 mmol/L (05/11/23 9:58 AM) HCO3(a), POC [22-26 mmol/L] 25.5 mmol/L (05/11/23 12:20 PM) 25.1 mmol/L (05/11/23 9:58 AM) Ion Ca(wb), POC [1.12-1.32 mmol/L] 1.15 mmol/L (05/11/23 12:20 PM) 1.18 mmol/L (05/11/23 9:58 AM) Na (wb), POC [138-146 mmol/L] 142 mmol/L (05/11/23 12:20 PM) 142 mmol/L (05/11/23 9:58 AM) K (wb), POC [3.5-4.9 mmol/L] 3.6 mmol/L (05/11/23 12:20 PM) 3.4 mmol/L *LOW* (05/11/23 9:58 AM) Component RED CELLS (05/11/23 6:34 AM) MRSA Surveillance, on Admission [MSND] MRSA NOT detected (05/11/23 8:40 PM) Anion Gap [5-14 mmol/L] 6 mmol/L (05/13/23 6:07 AM) 8 mmol/L (05/12/23 4:36 PM) 10 mmol/L (05/12/23 3:47 AM) Alb [3.5-5.2 g/dL] 2.7 g/dL *LOW* (05/13/23 6:07 AM) 2.8 g/dL *LOW* (05/12/23 4:36 PM) 2.4 g/dL *LOW* (05/12/23 3:47 AM) BUN [6-23 mg/dL] 10 mg/dL (05/13/23 6:07 AM) 12 mg/dL (05/12/23 4:36 PM) 12 mg/dL (05/12/23 3:47 AM) Ca [8.4-10.2 mg/dL] 8.5 mg/dL (05/13/23 6:07 AM) 8.6 mg/dL (05/12/23 4:36 PM) 9.4 mg/dL 1 (05/12/23 3:47 AM) Ion Ca [1.15-1.27 mmol/L] 1.32 mmol/L *HI* (05/12/23 3:47 AM) 1.03 mmol/L *LOW* (05/11/23 10:07 PM) Cl- [98-107 mmol/L] 113 mmol/L *HI* (05/13/23 6:07 AM) 107 mmol/L (05/12/23 4:36 PM) 110 mmol/L *HI* (05/12/23 3:47 AM) HCO3 [22-29 mmol/L] 27 mmol/L (05/13/23 6:07 AM) 24 mmol/L (05/12/23 4:36 PM) 22 mmol/L (05/12/23 3:47 AM) Cret [0.60-1.00 mg/dL] 0.69 mg/dL (05/13/23 6:07 AM) 0.67 mg/dL (05/12/23 4:36 PM) 0.50 mg/dL *LOW* (05/12/23 3:47 AM) Glu [74-109 mg/dL] 89 mg/dL 2 (05/13/23 6:07 AM) 77 mg/dL 3 (05/12/23 4:36 PM) 79 mg/dL 4 (05/12/23 3:47 AM) Hct [35-44 %] 34.4 % *LOW* (05/13/23 6:07 AM) 31.6 % *LOW* (05/12/23 4:36 PM) 31.0 % *LOW* (05/12/23 3:47 AM) Hgb [11.7-15.0 g/dL] 10.7 g/dL *LOW* (05/13/23 6:07 AM) 9.8 g/dL *LOW* (05/12/23 4:36 PM) 9.6 g/dL *LOW* (05/12/23 3:47 AM) INR [0.9-1.1] 1.4 5 *HI* (05/11/23 5:50 AM) K [3.5-5.1 mmol/L] 4.7 mmol/L 6 (05/13/23 6:07 AM) 3.8 mmol/L 7 (05/12/23 4:36 PM) 4.2 mmol/L (05/12/23 3:47 AM) Lactate [0.5-2.2 mmol/L] 0.9 mmol/L (05/11/23 10:07 PM) 0.7 mmol/L (05/11/23 5:42 PM) 0.8 mmol/L (05/11/23 4:43 PM) MCH [28-33 pg] 27.4 pg *LOW* (05/13/23 6:07 AM) 26.7 pg *LOW* (05/12/23 4:36 PM) 26.9 pg *LOW* (05/12/23 3:47 AM) MCHC [32-36 g/dL] 31.1 g/dL *LOW* (05/13/23 6:07 AM) 31.0 g/dL *LOW* (05/12/23 4:36 PM) 31.0 g/dL *LOW* (05/12/23 3:47 AM) MCV [81-96 fL] 88.0 fL (05/13/23 6:07 AM) 86.1 fL (05/12/23 4:36 PM) 86.8 fL (05/12/23 3:47 AM) Mg [1.6-2.6 mg/dL] 1.8 mg/dL (05/13/23 6:07 AM) 1.9 mg/dL (05/12/23 4:36 PM) 2.4 mg/dL (05/12/23 3:47 AM) Na [136-145 mmol/L] 146 mmol/L *HI* (05/13/23 6:07 AM) 139 mmol/L (05/12/23 4:36 PM) 142 mmol/L (05/12/23 3:47 AM) PO4 [2.5-4.5 mg/dL] 2.8 mg/dL (05/13/23 6:07 AM) 2.0 mg/dL *LOW* (05/12/23 4:36 PM) 3.4 mg/dL (05/12/23 3:47 AM) Plts [150-350 K/uL] 254 K/uL (05/13/23 6:07 AM) 239 K/uL (05/12/23 4:36 PM) 215 K/uL (05/12/23 3:47 AM) PT [12.0-14.2 seconds] 17.1 seconds *HI* (05/11/23 5:50 AM) PTT [23-35 seconds] 68 seconds 8 *HI* (05/13/23 6:07 AM) 33 seconds (05/12/23 11:44 PM) 26 seconds (05/12/23 4:36 PM) RBC [3.90-5.00 M/uL] 3.91 M/uL (05/13/23 6:07 AM) 3.67 M/uL *LOW* (05/12/23 4:36 PM) 3.57 M/uL *LOW* (05/12/23 3:47 AM) ACT (Celite), POC [74-125 seconds] 209 seconds *HI* (05/11/23 12:49 PM) 236 seconds *HI* (05/11/23 12:20 PM) 197 seconds *HI* (05/11/23 11:52 AM) Temp(a) 36.0 C (05/11/23 12:20 PM) 36.4 C (05/11/23 9:58 AM) WBC [4.0-10.4 K/uL] 8.13 K/uL (05/13/23 6:07 AM) 11.32 K/uL *HI* (05/12/23 4:36 PM) 10.22 K/uL (05/12/23 3:47 AM) 1Result Comment: CHECKED 2Result Comment: ADA recommendation for FASTING Serum/Plasma Glucose: Normal: 70-100 mg/dL Prediabetes: 100-125 mg/dL Diabetes: 126 mg/dL or higher 3Result Comment: ADA recommendation for FASTING Serum/Plasma Glucose: Normal: 70-100 mg/dL Prediabetes: 100-125 mg/dL Diabetes: 126 mg/dL or higher 4Result Comment: ADA recommendation for FASTING Serum/Plasma Glucose: Normal: 70-100 mg/dL Prediabetes: 100-125 mg/dL Diabetes: 126 mg/dL or higher 5Result Comment: Suggested therapeutic range for low-intensity Coumadin therapy for venous thromboembolism is INR 2.0-3.0 (ex: atrial fibrillation, history of TIA/stroke). For high risk patients, the suggested therapeutic range is INR 2.5-3.5 (ex: mechanical prosthetic valves). 6Result Comment: HEMOLYZED SPECIMEN CHECKED 7Result Comment: HEMOLYZED SPECIMEN 8Result Comment: Heparin therapeutic range for Anti XA Activity from 0.3 to 0.7 IU/mL is 65-105 seconds. Vital Signs Most recent to oldest [Reference Range]: 1 2 3 Patient Weight 46.4 kg (05/13/23 6:10 AM) 44.6 kg (05/12/23 4:00 AM) 45.1 kg (05/11/23 4:43 AM) Temperature [36.5-37.9 DegC] 36.5 DegC (05/13/23 8:38 AM) 36.7 DegC (05/13/23 3:30 AM) 36.6 DegC (05/12/23 11:29 PM) Heart Rate 69 bpm (05/13/23 8:38 AM) 74 bpm (05/13/23 8:21 AM) 96 bpm (05/13/23 3:30 AM) Respiratory Rate 17 br/min (05/13/23 8:38 AM) 15 br/min (05/13/23 8:21 AM) 20 br/min (05/13/23 3:30 AM) Blood Pressure 104/55mmHg (05/13/23 8:38 AM) 126/73mmHg (05/13/23 3:30 AM) 112/72mmHg (05/12/23 11:29 PM) Mean Blood Pressure 69 mmHg (05/13/23 8:38 AM) 89 mmHg (05/13/23 3:30 AM) 86 mmHg (05/12/23 11:29 PM) Cuff Pulse Pressure 49 mmHg (05/13/23 8:38 AM) 53 mmHg (05/13/23 3:30 AM) 40 mmHg (05/12/23 11:29 PM) BP Location # 1 Right Arm, Non-invasive (05/13/23 8:38 AM) Right Arm, Non-invasive (05/13/23 3:30 AM) Right Arm, Non-invasive (05/12/23 11:29 PM) Social History Social History Type Response Smoking Status Former Smoker, quit within 31 days - 1 yr Sex Female Implantable Device List Procedure Provider Procedure Date Device Type Site Unknown Unknown 05/11/23 Unknown Unknown Device Identifier Serial Number Lot or Batch Number Manufacturing Date Expiration Date Distinct Identification Code MRI Safety Implantable Status Assigning Authority Unknown Unknown n/a Unknown 12/20/25 Unknown Unknown Active Unkn own Unknown Unknown [id number] Unknown 07/31/26 Unknown Unknown Active Unknown Unknown Unknown [id number] Unknown 07/31/26 Unknown Unknown Active Unknown Procedure Provider Procedure Date Device Type Site Unknown Unknown 06/13/22 Unknown Unknown Device Identifier Serial Number Lot or Batch Number Manufacturing Date Expiration Date Distinct Identification Code MRI Safety Implantable Status Assigning Authority Unknown Unknown [id number] Unknown 11/23/25 Unknown Unknown Active Unkn own Anes H&P * MD Billy, Bill: VERIFY, MODIFY, PERFORM, SIGN Event Display: Anes H&P Authored Date: Patient: LOGAN MARCELINO Age: 83 years Sex: Female : 1940 Associated Diagnoses: None Author: MD Billy, Bill Preoperative Information Pre-Operative Diagnosis: Acute on chronic gut ischemia . Anesthiesia Preop Info: Procedure: MESENTERIC ANGIOGRAM POSS STENT PLACEMENT , LEFT ARM ACCESS WITH POSSIBLE CUTDOWN Date: 05/11/23 08:45 Surgeons: MD Carolin, Robin James Diagnosis: . History of Present Illness 82 year old 47.5kg F with PMHx of afib (Xarelto), HTN (Diltiazem, Benazepril), COPD (Albuterol neb & inhaler), hyperthyroid (Methimazole), GERD, with chronic mesenteric ischemia who underwent ex-lap, aorto-celiac and aorto-SMA bypass with 12-6 dacron graft and SMA endarterectomy in 05/2022 who presented for signs and symptoms of recurrent gut ischemia, now presenting for above. Case booked emergently per vascular surgery. Previously mentioned surgery was notable for afib w/ RVR prior to induction which was treated w/ metoprolol, otherwise unremarkable intraoperative events. Anesthesia History PONV: Denies. History of Motion Sickness: Denies. Patient Complications: "Takes me a long time to wake up". Family History of Anesthesia Problems: Negative. Functional Capacity 4-6 METS = Moderate: Able to climb 1 flight of stairs at regular pace without stopping. Symptoms: Minimal SOB (COPD), Longstanding, Denies chest pain. Medical History Cardiovascular: Hypertension: JAY- I, Calcium channel chivo, bp today 145/76. Dysrhythmia: A-fib, Xarelto. . Patient Education Patient Education: [facility] ([facility]). . Addendum by LUIZ Naidu Autumn C on May 10, 2022 13:00 EST (Verified) . Cardiac cath scheduled for 05/22 [facility] cardiac cath 05/22/2022: Endocrine/Metabolic: Thyroid: Hyperthyroidism, Methimazole, stable per pt report. Pulmonary: Ex-smoker, quit 22 years ago. Denies asthma or PRACHI. COPD: Stable, No supplemental oxygen, No recent flares, f/b De Jay Hicks, seen annually. Pt reports she uses Albuterol inhaler once daily, does not use Albuterol neb - rare use. Gastrointestinal: GERD: Pantoprazole. Oncology: tongue cancer s/p resection 09/2021 + L radical neck dissection, no chemoradiation. Medical History Medical Devices: Medical Devices: none . Health Status Allergies: Allergic Reactions (Selected) NKA. Medications: Medication List (Selected) Prescriptions Prescribed aspirin 81 mg oral delayed release tablet: 1 tab, PO, Daily, 90 tab Documented Medications Documented Albuterol (Eqv-ProAir HFA) 90 mcg/inh inhalation aerosol: 2 puff, inhaled, q6h, PRN: shortness of breath DilTIAZem (Eqv-Cardizem CD) 240 mg/24 hours oral capsule, extended release: 1 cap, PO, qAM Eliquis 2.5 mg oral tablet: TAKE 1 TABLET BY MOUTH TWICE A DAY Tiadylt ER 180 mg/24 hours oral capsule, extended release: TAKE 1 CAPSULE BY MOUTH EVERY DAY Trelegy Ellipta 100 mcg-62.5 mcg-25 mcg/inh inhalation powder: See Instructions, 2 puff inhaled Daily albuterol-ipratropium 2.5 mg-0.5 mg/3 mL inhalation solution: USE 1 VIAL VIA NEBULIZER TWICE DAILY NEEDED FOR SHORTNESS OF BREATH OR WHEEZING atorvastatin 10 mg oral tablet: 1 tab, PO, qhs benazepril: 40 mg, PO, qPM latanoprost 0.005% ophthalmic solution: 1 drop, both eyes, qhs methIMAzole 5 mg oral tablet: 1 tab, PO, qAM mirtazapine 7.5 mg oral tablet: TAKE 1 TABLET BY MOUTH EVERY DAY pantoprazole 40 mg oral delayed release tablet: 1 tab, PO, bid. Histories Procedure History: Tongue cancer removed (82662111) in 2021 at 82 Years. Colonoscope (399560432). Hysterectomy (254983007). Appendectomy (140733023).. 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 Former Smoker, quit > 1 yr Other Tobacco Use: Former other tobacco use, quit > than 1 year Alcohol: Recreational Drugs: . Physical Examination VS/Measurements: Vital Signs 05/11/2023 07:19 EST MEWS Score 0 05/11/2023 07:19 EST Temperature 36.6 DegC Temperature Route Temporal Heart Rate 84 bpm Respiratory Rate 16 br/min Systolic Blood Pressure 132 mmHg Diastolic Blood Pressure 69 mmHg BP Location # 1 Left Arm BP Cuff Size Regular Mean Blood Pressure 87 mmHg Cuff Pulse Pressure 63 mmHg Oxygen Therapy Room air SpO2 96 % , Weight 45.1 kg. General: Alert and oriented. Airway: Mallampati classification: II (soft palate, fauces, uvula visible). Mouth: Dentures ( Full, Upper dentures, Lower dentures ), Teeth ( Within normal limits, Edentulous ), well healed defect of L palatoglossal fold and tongue 2/2 history of resectino. Respiratory: Lungs are clear to auscultation, Respirations are non-labored. Cardiovascular: Normal rate, irregular rhythm. Anesthesiologist Assessment and Plan Problems: No previous anesthetic complications. Cardiac risk factors: High risk surgery, CAD. Risk of major adverse cardiac event (Revised Cardiac Risk Index): 2 = 7%. Cardiovascular risk associated with the procedure: Elevated (>=1%). ASA Classification: Class III. Anesthetic Plan: Anesthetic technique discussed: General anesthesia. Induction discussed: Intravenously. Airway plan discussed: Oral endotracheal tube. Special monitoring discussed: Arterial line. Risks discussed: Nausea-vomiting, Headache, Sore throat, Dental injury, Eye injury, Allergic reaction, Serious complications, Aspiration. Informed consent: Signed by patient. Special techniques and precautions discussed: Transfusion of blood or blood products, PostoperativeICU, Mechanical ventilation. History, Physical Exam, Assessment and Plan Completed: 05/11/2023 09:15:00, DO Mascorro William. Electronic Signature on File Electronically Reviewed/Signed by: Bill Cervantes MD Author Signature Dt/Tm:05/11/2023 11:21 AM Department of Anesthesia IK * MD Cosme, Abdoul: PERFORM DO Vera Ashley Rae: MODIFY Event Display: General Surgery H&P Authored Date: [id number] GENERAL SURGERY HISTORY AND PHYSICAL Name: LOGAN MARCELINO Patient Number: [id number] : 1940 Date of Service: 05/11/2023 Surgical Hospital Day/Procedure: No procedures found Chief Complaint: Ischemic colitis History of Present Illness: The patient is an 83-year-old female with a PMHx of A-fib on Eliquis and Aspirin, HTN, CKD IIIB, COPD, TIA, 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 She said the pain started while she was watching TV and endorsed nausea with 1 episode of emesis that evening. She also endorsed chills that evening but denied fever. She presented to the ED afternoon after the pain had not gone away. At the OSH they did CT angio abdomen and pelvis which demonstrated non-specific colitis and stenosis of the SMA bypass graft. She had also had diarrhea for the past week, so C. diff testing was done which returned negative. She transferred to [facility] to for management of her colitis. The patient endorsed post prandial pain that has been occurring for the past 3 months. Review Of Systems: A complete 14 point review of systems was negative except for what was stated in the HPI Past Medical History: See HPI Surgical History: Ex-lap with SMA bypass graft (May 2022) Cholecystectomy Total abdominal hysterectomy and b/l salpingo-oophorectomy Family History: No relevant family history Social History: Former smoker Allergies and Sensitivities: NKA Current Home Meds: (Last Updated 01/10 12:01) albuterol-ipratropium (albuterol-ipratropium 2.5 mg-0.5 mg/3 mL inhalation solution) USE 1 VIAL VIANEBULIZER TWICE DAILY NEEDED FOR SHORTNESS OF BREATH OR WHEEZING albuterol (Albuterol (Eqv-ProAir HFA) 90 mcg/inh inhalation aerosol) 2 puff inhaled q6h PRN: shortness of breath apixaban (Eliquis 2.5 mg oral tablet) TAKE 1 TABLET BY MOUTH TWICE A DAY aspirin (aspirin 81 mg oral delayed release tablet) 81 mg PO Daily atorvastatin (atorvastatin 10 mg oral tablet) 10 mg PO qhs benazepril 40 mg PO qPM dilTIAZem (DilTIAZem (Eqv-Cardizem CD) 240 mg/24 hours oral capsule, extended release) 240 mg PO qAM dilTIAZem (Tiadylt ER 180 mg/24 hours oral capsule, extended release) TAKE 1 CAPSULE BY MOUTH EVERYDAY fluticasone/umeclidinium/vilanterol (Trelegy Ellipta 100 mcg-62.5 mcg-25 mcg/inh inhalation powder)2 puff inhaled Daily latanoprost ophthalmic (latanoprost 0.005% ophthalmic solution) 1 drop both eyes qhs Store intact bottles under refrigeration. Once opened, the container may be stored at room temperature for 6 weeks. Andreina Manley 03/05 13:54 methIMAzole (methIMAzole 5 mg oral tablet) 5 mg PO qAM mirtazapine (mirtazapine 7.5 mg oral tablet) TAKE 1 TABLET BY MOUTH EVERY DAY pantoprazole (pantoprazole 40 mg oral delayed release tablet) 40 mg PO bid Vitals: Last Updated 05/11/23 04:43 Weights: Last Updated 05/11/23 04:43 Date Temp Pulse BP RR SpO2 FIO2 Date Wt(kg) Wt(lb) 05/11 04:43 36.9 93 129/74 15 RA 12 04:43 45.1 99 12 04:43 45.1 99 24 Hr Tmax: 36.9 at 05/11 04:43 Initial Wt: 05/11 45.1 kg 99 lb Physical Exam: General: Well appearing, no acute distress HEENT: Normocephalic, EOMI, mucus membranes moist Neck: Trachea midline Chest: Symmetric chest wall rise, no apparent respiratory distress on room air Abdomen: Well healed midline surgical scar, soft, non-distended, tender to palpation in epigastric region Extremities: Warm, dry, well perfused, moving all spontaneously Neuro: No focal deficits Skin: No rashes or jaundice Most Recent 24 Hour CBC/BMP Results CBC: on 05/11/2023 05:48 8.5 19.0 259 28.8 Most Recent 24 Hour Labs: 05/11/23 0548 MCH 26.2 L MCHC 29.5 L MCV 88.9 RBC 3.24 L MPV 11.0 RDW 21.0 H PTT 31 Studies: Pending or Completed in the Last 24 Hours Pending over reads of outside studies ASSESSMENT: The patient is an 83-year-old female with a 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 CT angio A/P was done at OSH and there was concern for ischemic colitis. PLAN: #SMA bypass graft stenosis #Ischemic colitis - OR with vascular today Teaching Physician Attestation: I saw and evaluated the patient with the resident team. I have reviewed the resident note, labs, imaging, and radiology reports and the findings have been confirmed. I agree with the assessment and plan as documented and/or amended above. Discussed with Dr. Leon of vascular surgery via telephone this am. To OR this am for angiogram and possible stent/balloon dilation of graft stenosis. Lactate normal pre-op. Will monitor closely post-op for mesenteric ischemia and reperfusion injury. Osiris Vera Electronic Signature on File Electronically Reviewed/Signed by: Abdoul Aguiar MD Author Signature Dt/Tm:05/11/2023 08:41 AM Resident Division of General Surgery Electronically Reviewed/Signed by: DO Jennyfer Mendez Signature Dt/Tm: 05/11/2023 02:52PM Division of Trauma Surgery AW Vascular surgery Outpatient Note * SHELIA Tubbs, Carissa Chandler: PERFORM Event Display: Vascular Surgery Outpt Note Authored Date: [id number] VASCULAR SURGERY DISCHARGE FOLLOW UP HOME CALL Name: LOGAN MARCELINO Patient Number: [id number] : 1940 Date of Service: 05/14/2023 Surgical Hospital Day/Procedure: 05/11/2023 SURGEON: Robin Coe MD PARK INTERPRETIVE RANGER(s): Dr. Gr PREOPERATIVE DIAGNOSIS: Acute on chronic mesenteric ischemia POSTOPERATIVE DIAGNOSIS: Acute on chronic mesenteric ischemia OPERATION PERFORMED: Ultrasound-guided access of left radial artery Left upper extremity angiogram Diagnostic mesenteric angiogram Balloon angioplasty of SMA bypass (5 x 80 mm balloon) Aorto to SMA bypass stent placement (VBX 6 x 79 mm stent with post stent placement balloon angioplasty 5 x 80 mm balloon and proximal flare using 8 x 2 mm balloon) Completion mesenteric angiogram Coil embolization of left radial artery (6 x 3 mm Cook questionable coils x 2) Day of Hospital Discharge: 05/13/2023 Follow-Up Appointment: Chief Complaints Yes No Comment Pain _ x_ Increased? __ Y/N __ Level: _/10 L lower arm is tender to touch, but no pain in arm, hand or abdomen Incision/Puncture Drainage/ _ _x Drainage Increased: __ Y/N __ Dressing Changes/day: _ Dressing to wrist intact, will remove to shower. Reviewed care of incision - let water/soap run over and pat dry. Cover as needed Bleeding x Description: _ Location: _ Swelling x_ _ Increased? __ Y/N _x_ Feels swelling to arm is less today. Remains ecchymotic Redness _ _x Increased? __ Y/N __ Warm to Touch? __ Y/N _x_ Fever _ x_ T-Max: _ GI Review N/V _ _x Regular BMs x_ _ Had BM today that was not diarrhea Neurologic _ x_ Weakness: __ Y/N _x_ Denies weakness to L arm/hand Changes Headache: __ Y/N __ Affected Speech: __ Y/N __ x Numbness/Tingling: _ Denies to L hand Baseline _x _ Walker/Cane: __ Y/N __ Ambulatory Level Physical Therapy Involved: __ Y/N __ Current Home Meds: (Last Updated 05/13 08:29) acetaminophen (Tylenol 325 mg oral tablet) 650 mg PO q8h PRN: pain - mild (1-3) Tkae 2 tablets onlyif needed for pain every 8 hours.not to exceed 4000 mg/day albuterol-ipratropium (albuterol-ipratropium 2.5 mg-0.5 mg/3 mL inhalation solution) USE 1 VIAL VIANEBULIZER TWICE DAILY NEEDED FOR SHORTNESS OF BREATH OR WHEEZING albuterol (Albuterol (Eqv-ProAir HFA) 90 mcg/inh inhalation aerosol) 2 puff inhaled q6h PRN: shortness of breath apixaban (Eliquis 2.5 mg oral tablet) 2.5 mg PO bid TAKE 1 TABLET BY MOUTH TWICE A DAY atorvastatin (atorvastatin 10 mg oral tablet) 10 mg PO qhs benazepril 40 mg PO qPM clopidogrel (Plavix 75 mg oral tablet) 75 mg PO Daily 1 tablet by mouth daily dilTIAZem (DilTIAZem (Eqv-Cardizem CD) 240 mg/24 hours oral capsule, extended release) 240 mg PO qAM fluticasone/umeclidinium/vilanterol (Trelegy Ellipta 100 mcg-62.5 mcg-25 mcg/inh inhalation powder)2 puff inhaled Daily latanoprost ophthalmic (latanoprost 0.005% ophthalmic solution) 1 drop both eyes qhs Store intact bottles under refrigeration. Once opened, the container may be stored at room temperature for 6 weeks. Andreina Manley 03/05 13:54 methIMAzole (methIMAzole 5 mg oral tablet) 5 mg PO qAM mirtazapine (mirtazapine 7.5 mg oral tablet) TAKE 1 TABLET BY MOUTH EVERY DAY pantoprazole (pantoprazole 40 mg oral delayed release tablet) 40 mg PO bid Narrative/Action Plan: _ Post op information obtained from patient over the phone. Denies abdominalpain. Denies pain, numbness, tingling to hand. Understands need to call if she develops these symptoms. Also spoke to Latesha, patient's lay care provider; reviewed that she or patient should call if patient experiences above symptoms. Also confirmed that patient stopped ASA and is taking Eliquis andPlavix. Confirmed first f/u appt. in [place]. Carissa Tubbs RN, BSN Vascular Surgery Clinical Group TeacherDelinquency Prevention Social Worker Signature on File Electronically Reviewed/Signed by: Carissa Tubbs Author Signature Dt/Tm:05/14/2023 10:58 AM Electronically Reviewed/Signed by: Robin Coe MD Cosigner Signature Dt/Tm: 05/15/2023 05:15 PM Division of Vascular Surgery J[facility] Surgical operation note * MD Carolin, Robin James: PERFORM Event Display: .Operative Report Authored Date: [id number] OPERATIVE REPORT Name: LOGAN MARCELINO Patient Number: [id number] : 1940 Date of Service: 05/11/2023 SURGEON: Robin Coe MD PARK INTERPRETIVE RANGER(s): Dr. Gr PREOPERATIVE DIAGNOSIS: Acute on chronic mesenteric ischemia POSTOPERATIVE DIAGNOSIS: Acute on chronic mesenteric ischemia OPERATION PERFORMED: Ultrasound-guided access of left radial artery Left upper extremity angiogram Diagnostic mesenteric angiogram Balloon angioplasty of SMA bypass (5 x 80 mm balloon) Aorto to SMA bypass stent placement (VBX 6 x 79 mm stent with post stent placement balloon angioplasty 5 x 80 mm balloon and proximal flare using 8 x 2 mm balloon) Completion mesenteric angiogram Coil embolization of left radial artery (6 x 3 mm Cook questionable coils x 2) ANESTHESIA: General endotracheal COMPLICATIONS: Left radial artery injury SPECIMENS: None ESTIMATED BLOOD LOSS: 100 cc Radiation dose 831 milligrays Fluoroscopy time 29 minutes Contrast dose 72 cc INDICATIONS: This is an 83-year-old female with a history of chronic mesenteric ischemia who approximately 1 year ago underwent a supraceliac aorta to SMA and celiac axis bypass who recently presented to an outside facility with symptoms of chronic mesenteric ischemia that became severe acutely andwas noted to have ischemic colitis changes on CAT scan. The CT also revealed severe stenosis of thesupraceliac to SMA bypass and occlusion of the celiac axis bypass. 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 Due to her symptoms the decision was made to proceed to the operating for revascularization endovascularly. FINDINGS: The patient had a severely stenotic proximal and mid bypass lesions in the supraceliac aorta to SMA bypass. At the conclusion of the case patient had resolution of the stenotic segments of the SMA bypass and excellent blood flow through the SMA bypass/stent with excellent runoff. No sign of distal embolization was noted. On the left upper extremity there was injury to the radial artery and the angiogram revealed a patent axillary patent brachial patent ulnar and interosseous as well as patent palmar arch with patent blood flow to the entire hand through the ulnar artery injury of the radial artery just proximal to the wrist. Following coil immunization there was no further flow through the radial os very distal to the coils. OPERATION: Patient was brought the operating room and placed on the operating table in supine position. Patient was sedated and intubated and underwent a radial artery arterial line placement in the right upper extremity by anesthesia. Miramontes catheter was also placed by nursing and left upper extremity was prepped and draped in standard sterile fashion along with bilateral groins. Ultrasound was used to evaluate the left radial artery which appeared patent. Under ultrasound guidance a micropuncture needle was used to access left radial artery. A wire was advanced to fluoroscopic guidance into the brachial artery and a micropuncture needle was exchanged for micropuncture sheath. A 5 Cuban sheath was then advanced into the left radial artery and 250 mcg of nicardipine was injected. The patient was then heparinized using 4000 units of IV heparin and ACT was obtained every 20 minutes maintaining the ACT and we bolusing the heparin for an ACT goal of greater than 200 throughout the case. ABentson wire in combination with a angled Glidewire was guided up into the left upper extremity andangiogram was obtained to guide us with sending the wire into the thoracic aorta. The wire was thenguided down into the thoracic aorta and a 7 Cuban 90 cm sheath was advanced over the wire into theabdominal aorta. An GEORGIAN projection was obtained and a combination of the angled glide wire and angled glide catheter was attempted to access the SMA bypass without success. At this time a pigtail catheter was advanced into the abdominal aorta and with the injector and mesenteric angiogram was obtained. This revealed the bypass a combination of the multipurpose catheter along with a angled Glidewire was then used to access the SMA bypass. The wire was advanced into the distal SMA bypass. Confirmatory angiogram through the midportion of the SMA bypass was completed using the multipurpose catheter. At this time the stenosis was noted in 2 segments as noted on the CT scan. At this time a 5 x 80mm balloon was advanced and balloon angioplasty was completed. Following that a 7 x 80 mm VBX stentwas advanced and positioned into the proximal end of the bypass and deployed. The proximal end was then noted to be stenotic after the deployment so an 8 x 20 mm balloon was advanced across the proximal end of it and balloon angioplasty was completed this allowed us to further dilate the stenotic segment of the proximal bypass as well as flare of the proximal end of the stent. A 5 x 80 mm balloonwas then advanced into the stent distally and balloon angioplasty was completed to allow the stent to fully expand. A follow-up angiogram through the midpoint of the stent was completed revealing excellent outflow with no sign of embolization. The catheter was then pulled back into the aorta and a follow-up angiogram revealed excellent patency and flow through the stent. At this time Over the wire the 7 Cuban sheath was retracted and a long the retraction a small piece of the radial artery wasnoted to be adherent to the wall of the 7 Cuban sheath. Pressure was held on the midportion of thearm. At this time a short 5 Cuban sheath was advanced and a angiogram of the upper extremity reveal ed a patent axillary patent brachial patent ulnar and patent interosseous artery with a patent proximal and mid radial artery with injury at the level of just above the wrist. And the angiogram also revealed excellent flow through the radial artery into the hand and palmar arch filling through the ulnar artery. Patient had an excellent ulnar signal as well and a excellent palmar arch signal as well. Capillary refill also appeared appropriate. At this time decision was made to place 2 small coils into the distal radial artery at the site of the injury. 6 x 3 mm pushable Cook coil was advanced and deployed x 2 a follow-up angiogram revealed no further flow past the point of the coil in position. A wrist radial control band was applied to the distal portion of the radial artery even though it appeared hemostatic and pressure was held for 5 minutes. At this time the forearm appeared soft with no sign of expanding hematoma a pressure dressing was applied to the left upper extremity from the elbow down to the wrist. Following the placement of the wristband as well as the pressure dressing the patient had an excellent ulnar signal and palmar arch signal in the hand. This concluded the procedure and the patient was awake and the patient was moving her and hand without difficulty or painon the left upper extremity. Patient was then taken to the recovery area in good stable condition. I was personally scrubbed and present for the entirety of procedure. Electronic Signature on File Electronically Reviewed/Signed by: Robin Coe MD Author Signature Dt/Tm:05/12/2023 12:28 PM Division of Vascular Surgery [facility] Vascular Surgery Inpt Consult * MD Carolin, Robin James: PERFORM MD Tereso, Wolfgang Mcconnell: MODIFY Event Display: Vascular Surgery Inpt Consult Authored Date: [id number] VASCULAR SURGERY INPATIENT CONSULTATION REPORT Name: LOGAN MARCELINO Patient Number: [id number] : 1940 Date of Service: 05/11/2023 REQUESTING SERVICE: _ EGS REASON FOR CONSULTATION: _ symptoms of chronic critical mesenteric ischemia ASSESSMENT: _ This is an 83-year-old female with a history of severe atherosclerotic mesenteric disease who is status post a supraceliac aorta to SMA/celiac artery bypass approximately a year ago whodeveloped recurrent symptoms of chronic critical mesenteric ischemia and for the past few weeks has had severe diarrhea and abdominal discomfort. RECOMMENDATIONS: _ 1 ) _ At this time a consultation with our EGS colleagues decision was made to revascularize the stenotic SMA bypass in the hopes of improving the blood flow. We do recognize the concern for reperfusion injury to the bowel and for that reason EGS will continue to monitor the patient moving forward. 2 ) _ Rest of care per primary team please call with any questions or concerns. 3 ) _ Please page vascular surgery with any questions p History of Present Illness: _ This is an 83-year-old female with a history of severe atherosclerotic mesenteric disease who is status post a supraceliac aorta to SMA/celiac artery bypass approximately a year ago who developed recurrent symptoms of chronic critical mesenteric ischemia and for the past few weeks has had severe diarrhea and abdominal discomfort. 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 in May Surgical History: _ Ex-lap with SMA bypass graft (May 2022) Cholecystectomy Total abdominal hysterectomy and b/l salpingo-oophorectomy Family History: _ Non contributory Social History: _ Former smoker Review Of Systems: _ A complete review of systems was performed and was negative except as stated in HPI Allergies and Sensitivities: NKA Active Inpt Meds: pantoprazole 40 mg IV Push Daily Active PRN Meds: heparin 3,000 unit IV Push As indicated One Time Meds: None Active IV Meds: Electrolyte IV Solution 1,000 mL 1,000 mL 85 mL/HR heparin 25,000 unit + Dextrose 5% in Water 250 mL (heparin for infusion 25,000 unit + dextrose 5% (heparin drips) 250 mL) 250 mL Per Protocol Vitals: Last Updated 05/11/23 07:19 Weights: Last Updated 05/11/23 04:43 Date Temp Pulse BP RR SpO2 FIO2 Date Wt(kg) Wt(lb) 05/11 07:19 36.6 84 132/69 16 96 RA 05/11 04:43 45.1 99 05/11 04:43 36.9 93 129/74 15 RA 05/11 04:43 45.1 99 24 Hr Tmax: 36.9 at 05/11 04:43 Initial Wt: 05/11 45.1 kg 99 lb Physical Exam: General: no acute distress Neck: supple Heart: regular rate Chest: normal work of breathing on nasal cannula Abdomen: soft, tender to palpation no rebounding or guarding Extremity: _ appears warm and well perfused (R) (L) x x Radial pulses palpable Femoral pulses palpable DP pulses palpable DP pulses Doppler PT pulses palpable PT pulses Doppler Other: Neuro: _ no focal deficits Wound: _ Most Recent 24 Hour CBC/BMP Results CBC: on 05/11/2023 05:48 Nephrology Panel: on 05/11/2023 05:48 8.5 142 109 12 19.0 259 81 28.8 3.1 23 0.53 Ca = 8.3 Most Recent 24 Hour Labs: 05/11/23 0640 Estimated CrCl 59.27 05/11/23 0634 ABO/Rh See Flowsheet Antibody Scr See Flowsheet Expires at 0600AM on See Flowsheet # Units 0 R Number See Flowsheet Component See Flowsheet 05/11/23 0548 Lactate 0.9 MCH 26.2 L MCHC 29.5 L MCV 88.9 RBC 3.24 L MPV 11.0 RDW 21.0 H Anion Gap 10 BUN 12 Ca 8.3 L Cl- 109 H HCO3 23 Cret 0.53 L Glu 81 K 3.1 L Mg 1.8 Na 142 PO4 2.2 L eGFR CKD-EPI >90 PTT 31 Alb 2.9 L Studies: Pending or Completed in the Last 24 Hours No studies found Attending addendum I personally seen evaluate the patient discussed patient with the resident. This is an 83-year-old female with a history of severe atherosclerotic mesenteric disease who is status post a supraceliac aorta to SMA/celiac artery bypass approximately a year ago who developed recurrent symptoms of chronic critical mesenteric ischemia and for the past few weeks has had severe diarrhea and abdominal discomfort. She is unable to tolerate a diet and has lost a significant amount of weight. On my patientwas seen at an outside facility and a CTA revealed severe stenosis of the SMA bypass with a chronically occluded celiac access limb. Patient was transferred to [facility] for further evaluation management of her ischemic colitis. On my examination the patient is awake alert oriented followscommands does not appear to be in any distress. Abdomen is soft but tender to palpation no rebound no guarding. She has palpable radial pulses bilaterally. Regular rate and rhythm and nonlabored breathing. At this time a consultation with our EGS colleagues decision was made to revascularize the stenotic SMA bypass in the hopes of improving the blood flow. We do recognize the concern for reperfusion injury to the bowel and for that reason EGS will continue to monitor the patient moving forward.Rest of care per primary team please call with any questions or concerns. Electronic Signature on File Electronically Reviewed/Signed by: Robin Coe MD Author Signature Dt/Tm:05/11/2023 09:49 AM Division of Vascular Surgery [facility] .D/C Summary * MD Tereso, Wolfgang Mcconnell: PERFORM, MODIFY Event Display: .D/C Summary Authored Date: [id number] [facility] For medical concerns, call: . Address: [address] [place], [place] [id number] (HOME) [phone] (MOBILE) :1940 . Date of Admission:05/11/2023 Date of Discharge:05/13/2023 Physician:MD Carolin, Robin James Service:Vascular Surgery Discharge Disposition: Primary Care Provider/Phone: LUIZ MENDEZ, CIARA Wells (BUSINESS) [phone] (FAX BUSINESS) Principal Diagnosis: Other Diagnoses: Ischemia, bowel Major Tests and Procedures: Mestenteric angiogram, SMA bypass stent, coil embolization radial 05/11/2023 Hospital Course: HPI: This is an 83-year-old female with a history of severe atherosclerotic mesenteric disease who is status post a supraceliac aorta to SMA/celiac artery bypass approximately a year ago who developed recurrent symptoms of chronic critical mesenteric ischemia and for the past few weeks has had severe diarrhea and abdominal discomfort. Hospital Course: Patient is now s/p L radial access, aorta to SMA stent placement, balloon angiogram on 05/11/23. She was in the SICU for q1 hr neurovascular checks and serial abdominal exams. However, patient is overall doing very well with stable examinations. Her pain is well controlled, tolerati ng a diet, hemodynamically stable. Patient was started on eliquis and plavix. She has scheduled outpatient follow up and was deemed ready for discharge on 05/13/23. Exam on Discharge: Vitals & Measurements: T:36.7C TMIN:36.4C TMAX:36.7C HR:74(Monitored) RR:15 BP:126/73 SpO2:96% Oxygen Therapy:Room air WT:46.4kg Discharge Medications: 1.Pantoprazole (pantoprazole 40 mg oral delayed release tablet) 40 mg (1 tab) by mouth 2 times daily. 2.Albuterol-ipratropium (albuterol-ipratropium 2.5 mg-0.5 mg/3 mL inhalation solution) . USE1 VIAL VIA NEBULIZER TWICE DAILY NEEDED FOR SHORTNESS OF BREATH OR WHEEZING. 3.Latanoprost ophthalmic (latanoprost 0.005% ophthalmic solution) 1 drop in both eyes at bedtime. 4.Albuterol (Albuterol (Eqv-ProAir HFA) 90 mcg/inh inhalation aerosol) 2 puff Inhalation every 6 hours, as needed for shortness of breath. 5.Atorvastatin (atorvastatin 10 mg oral tablet) 10 mg (1 tab) by mouth at bedtime. 6.MethIMAzole (methIMAzole 5 mg oral tablet) 5 mg (1 tab) by mouth once a day (in the morning). . 7.DilTIAZem (DilTIAZem (Eqv-Cardizem CD) 240 mg/24 hours oral capsule, extended release) 240 mg (1 cap) by mouth once a day (in the morning). . 8.Benazepril 40 mg by mouth every evening. 9.Fluticasone/umeclidinium/vilanterol (Trelegy Ellipta 100 mcg-62.5 mcg-25 mcg/inh inhalation powder) See Instructions . 2 puff inhaled Daily. 10.Mirtazapine (mirtazapine 7.5 mg oral tablet) . TAKE 1 TABLET BY MOUTH EVERY DAY. 11.Acetaminophen (Tylenol 325 mg oral tablet) 650 mg (2 tab) by mouth every 8 hours, as needed for pain - mild (1-3). Tkae 2 tablets only if needed for pain every 8 hours.not to exceed 4000 mg/day. 12.Clopidogrel (Plavix 75 mg oral tablet) 75 mg (1 tab) by mouth once daily. 1 tablet by mouth daily. 13.Apixaban (Eliquis 2.5 mg oral tablet) 2.5 mg (1 tab) by mouth 2 times daily. TAKE 1 TABLET BY MOUTH TWICE A DAY. Allergies and Sensitivities: NKA Tests Pending: None Scheduled Appointments: Date/Time:Provider/Resource: Jul 09:30 [facility] CV Rm2 Location/Instructions:1. For this exam you may have nothing to eat or drink 10 hours prior to your exam. 2. No smoking, nicotine, or tobacco the night before and/or the morning of the exam. 3. Please contact the physician that provides your medications for any instructions on how to handle dosing prior to the test. If you are on insulin or take medications for diabetes, consult your physician as to how to handle dosing of this medication prior to the test. Date/Time:Provider/Resource: Jul 10:15 MD Jelena, Sanjeev Martines Location/Instructions:[facility] [address], [address], [address], [place] [address] . Please arrive 15 min earlier than your appointment time for Check In Process. Discharge Services: No Post-Acute Placement(s) Listed No Post-Acute Service(s) Listed Care Instructions: FOR ALL DISCHARGES: WHAT TO LOOK FOR / WHEN TO CONTACT US: *Please contact us immediately at the numbers listed below if you are experiencing any of the following signs of infection or complication at the procedure site: - Fever (greater than 101 degrees Fahrenheit) or chills - Redness, purulent (yellow or green) drainage - Any severe swelling of the limb that is not relieved with elevation - Severe hand pain, weakness, numbness, discoloration of the hand and/or fingers(FISTULA, TOS ONLY) - Pain that arises several days or weeks after the initial pain has resolved. HOW TO CONTACT US: *If you have any questions or problems, contact the vascular surgery office - Saturday through Saturday, 8:00am to 4:30pm, call - Before 8:00am, after 4:30pm, and on weekends or holidays, call and ask the hospital dump truck operator to page the Vascular Surgery Attending Physician motor inspection mechanic. *If you cannot reach our office and you are ill, please call [phone] or go to your nearest Emergency Department. FOLLOW UP: - You will have a follow up appt within 1-2 weeks and a second appt in 6- 8weeks with imaging doneprior to your visit. *We will contact you within one week of your discharge in order to schedule a follow-up appointment. - If you are not contacted by our office within one week in order to arrange for follow-up, please call us at . If unable to contact your physician and you feel it is an emergency, go to the nearest Emergency Room or call [phone] MEDICATIONS: - Use Tylenol as needed for pain. - Please continue home medications - Avoid using non-steroidal anti-inflammatory medications for pain for 48 hours following the procedure, such as Ibuprofen, Naprosyn, Motrin, Aleve, or Advil. -Patient specific blood thinner instructions: Please continue to take Plavixand we started you on Eliquis which should be taken as well ANGIO: WHAT TO LOOK FOR *Please inspect the procedure site daily for one week. It is normal to: - Have a small bruise at the procedure site or to have bruising that spreads under the skin. This may take weeks to resolve. - Have a small lump at the procedure site (this is a small accumulation of blood called a hematoma). This should decrease in size over time. - Have minor pain at the procedure site for 3-5 days. *Please contact us immediately at the numbers listed below if you are experiencing any of the following signs of infection or complication at the procedure site: - Redness, swelling, purulent (yellow or green) drainage, or a fever greater than 101 degrees Fahrenheit. - Pain that arises several days or weeks after the initial pain has resolved. - If you have a lump at your procedure site that increases in size - NEW swelling that is painful, getting bigger, or has any drainage *If affected extremity becomes cold, blue, or numb, call 911 immediately. *If there is a small amount of bleeding at the procedure site, lie down and hold firm pressure witha clean washcloth for 10 minutes. - If the bleeding stops, lie quietly with the limb straight for 4 hours. - Notify your physician as soon as possible at the number listed below. *IF THE BLEEDING DOES NOT STOP OR IF THERE IS A LARGE AMOUNT OF BLEEDING OR SPURTING, CALL 911 IMMEDIATELY. - Do not drive yourself to a hospital. - Continue to lie down and hold firm pressure until help arrives. [facility] # [address], [address], Entrance [address] [place] [address] [address] [facility], [place] [address] . Advance Directive:Unable to Obtain Information I personally spent _ minutes in discharge planning. Electronic Signature on File Electronically Reviewed/Signed by: Wolfgang Rider MD Author Signature Dt/Tm:05/13/2023 08:24 AM Resident Division of Plastic and Reconstructive Surgery Electronically Reviewed/Signed by: Wolfgang Rider MD Cosigner Signature Dt/Tm: 05/13/2023 08:30 AM Resident Division of Plastic and Reconstructive Surgery Electronically Reviewed/Signed by: Robin Coe MD Cosigner Signature Dt/Tm: 05/14/2023 08:40 AM Division of Vascular Surgery CCL Discharge instructions * SHELIA Lo, Brit Headley: WAQAR Rider MD, Wolfgang Mcconnell: PERFORM, WAQAR Rider MD, Wolfgang Mcconnell: MODIFY Event Display: Patient Discharge Instructions Authored Date: [id number] LOGAN MARCELINO :1940 Visit Date:05/11/2023 Patient Discharge Instructions [facility] For medical concerns, call: . Date of Admission:05/11/2023 Date of Discharge:05/13/2023 Physician:MD Carolin, Robin James Service:Vascular Surgery Discharge Disposition: . Advance Directive:Unable to Obtain Information Reason for Hospitalization Your Diagnoses Ischemia, bowel My Health Patient Portal: [employer] makes it easy for you to manage your health information online. My [facility] [employer] is a free service that provides you instant, secure access to your medical information anytime, anywhere. Sign in or set up your account today at [email or web address] Thank you for allowing us to assist you with your healthcare needs. If you need additional community resources, [place] [facility] can help at https://www.[place]211.org. 211 can assist you in connecting with social programs based on your unique needs and locations. 211 is an anonymous search that can help you locate resources for: Food, Housing, Transportation, Goods, Education and Healthcare. Medications Patient is enrolled in Rx-to-Go Program New medications will be delivered from [facility] to patient's room at discharge: Mon-Sun from 9AM-5 PM. Medications MUST be PICKED UP at [facility] if patient is discharged Mon-Sun after 5 PM or anytime on holidays. Please note, the [facility] closes at 8 PM on weekdays and 5:30 PM on Saturdays, Sundays, and holidays. What How Much When Instructions Next Dose New acetaminophen (Tylenol 325 mg oral tablet) 2 tab(s) by mouth Every 8 hours as needed for pain - mild (1-3) Tkae 2 tablets only if needed for pain every 8 hours. not to exceed 4000 mg/ day Pickup at [facility]/pharmacy #[id number] New clopidogrel (Plavix 75 mg oral tablet) 1 tab(s) by mouth Once daily Refills: 3 1 tablet by mouth daily Pickup at [facility] [address] 05/14 AM Changed apixaban (Eliquis 2.5 mg oral tablet) 1 tab(s) by mouth 2 times daily TAKE 1 TABLET BY MOUTH TWICE A DAY Pickup at [facility] [address] 05/13 PM Changed dilTIAZem (DilTIAZem (Eqv-Cardizem CD) 240 mg/ 24 hours oral capsule, extended release) 1 cap by mouth Once a day (in the morning) 05/14 AM Unchanged albuterol (Albuterol (Eqv-ProAir HFA) 90 mcg/ inh inhalation aerosol) 2 puff(s) Inhalation Every 6 hours as needed for shortness of breath Unchanged albuterol-ipratropium (albuterol-ipratropium 2.5 mg-0.5 mg/ 3 mL inhalation solution) USE 1 VIAL VIA NEBULIZER TWICE DAILY NEEDED FOR SHORTNESS OF BREATH OR WHEEZING Unchanged atorvastatin (atorvastatin 10 mg oral tablet) 1 tab(s) by mouth At bedtime 12/18 PM Unchanged benazepril 40 Milligram by mouth Every evening 05/13 PM Unchanged fluticasone/ umeclidinium/ vilanterol (Trelegy Ellipta 100 mcg-62.5 mcg-25 mcg/ inh inhalation powder) See instructions 2 puff inhaled Daily 05/14 AM Unchanged latanoprost ophthalmic (latanoprost 0.005% ophthalmic solution) 1 Drops in both eyes At bedtime 05/13 PM Unchanged methIMAzole (methIMAzole 5 mg oral tablet) 1 tab(s) by mouth Once a day (in the morning) 05/14 AM Unchanged mirtazapine (mirtazapine 7.5 mg oral tablet) TAKE 1 TABLET BY MOUTH EVERY DAY Unchanged pantoprazole (pantoprazole 40 mg oral delayed release tablet) 1 tab(s) by mouth 2 times daily 05/13 PM Pharmacy Information [facility]: [address] [place] [address] [place] [phone] [id number]: [address] [place], [place] [id number] [phone] What How Much When Comments Stop Taking aspirin (aspirin 81 mg oral delayed release tablet) 1 tab(s) by mouth Once daily Allergies NKA What to do next Instructions From Your Doctor FOR ALL DISCHARGES: WHAT TO LOOK FOR / WHEN TO CONTACT US: *Please contact us immediately at the numbers listed below if you are experiencing any of the following signs of infection or complication at the procedure site: - Fever (greater than 101 degrees Fahrenheit) or chills - Redness, purulent (yellow or green) drainage - Any severe swelling of the limb that is not relieved with elevation - Severe hand pain, weakness, numbness, discoloration of the hand and/or fingers(FISTULA, TOS ONLY) - Pain that arises several days or weeks after the initial pain has resolved. HOW TO CONTACT US: *If you have any questions or problems, contact the vascular surgery office - Saturday through Saturday, 8:00am to 4:30pm, call - Before 8:00am, after 4:30pm, and on weekends or holidays, call and ask the hospital dump truck operator to page the Vascular Surgery Attending Physician motor inspection mechanic. *If you cannot reach our office and you are ill, please call 911 or go to your nearest Emergency Department. FOLLOW UP: - You will have a follow up appt within 1-2 weeks and a second appt in 6- 8weeks with imaging doneprior to your visit. *We will contact you within one week of your discharge in order to schedule a follow-up appointment. - If you are not contacted by our office within one week in order to arrange for follow-up, please call us at . If unable to contact your physician and you feel it is an emergency, go to the nearest Emergency Room or call [phone] MEDICATIONS: - Use Tylenol as needed for pain. - Please continue home medications - Avoid using non-steroidal anti-inflammatory medications for pain for 48 hours following the procedure, such as Ibuprofen, Naprosyn, Motrin, Aleve, or Advil. -Patient specific blood thinner instructions: Please continue to take Plavixand we started you on Eliquis which should be taken as well ANGIO: WHAT TO LOOK FOR *Please inspect the procedure site daily for one week. It is normal to: - Have a small bruise at the procedure site or to have bruising that spreads under the skin. This may take weeks to resolve. - Have a small lump at the procedure site (this is a small accumulation of blood called a hematoma). This should decrease in size over time. - Have minor pain at the procedure site for 3-5 days. *Please contact us immediately at the numbers listed below if you are experiencing any of the following signs of infection or complication at the procedure site: - Redness, swelling, purulent (yellow or green) drainage, or a fever greater than 101 degrees Fahrenheit. - Pain that arises several days or weeks after the initial pain has resolved. - If you have a lump at your procedure site that increases in size - NEW swelling that is painful, getting bigger, or has any drainage *If affected extremity becomes cold, blue, or numb, call 911 immediately. *If there is a small amount of bleeding at the procedure site, lie down and hold firm pressure witha clean washcloth for 10 minutes. - If the bleeding stops, lie quietly with the limb straight for 4 hours. - Notify your physician as soon as possible at the number listed below. *IF THE BLEEDING DOES NOT STOP OR IF THERE IS A LARGE AMOUNT OF BLEEDING OR SPURTING, CALL 911 IMMEDIATELY. - Do not drive yourself to a hospital. - Continue to lie down and hold firm pressure until help arrives. [facility] # [address], [address], Entr[address] [place] [address] [address] [facility], [address] [place] [address] If you notice the following symptoms Contact our Careline at . If unable to contact your physician and you feel it is an emergency, go to the nearest Emergency Room or call 911 Diet Instructions Activity Instructions Follow-Up Appointments Scheduled Follow-Up Appointments Date/Time:Provider/Resource: Jul 09:30 [facility] Rm[facility] Location/Instructions:1. For this exam you may have nothing to eat or drink 10 hours prior to your exam. 2. No smoking, nicotine, or tobacco the night before and/or the morning of the exam. 3. Please contact the physician that provides your medications for any instructions on how to handle dosing prior to the test. If you are on insulin or take medications for diabetes, consult your physician as to how to handle dosing of this medication prior to the test. Date/Time:Provider/Resource: Jul 10:15 MD Jelena, Sanjeev Martines Location/Instructions:[facility] [address], [address], [address], [place], [place] [address] . Please arrive 15 min earlier than your appointment time for Check In Process. The Following Services Have Been Arranged for You No Post-Acute Placement(s) Listed No Post-Acute Service(s) Listed Tests Pending None Procedures Performed Mestenteric angiogram, SMA bypass stent, coil embolization [facility] 05/11/2023 Special Instructions Common Emergency Awareness Tips Call 911 immediately if: experiencing any of the warning signs and symptoms of stroke: B.E. F.A.S.T. Balance: is there trouble with walking or coordination Eyes: is there double vision or visual loss Face: Smile, do both sides of face move equally Arm: Raise arms, do both arms move equally Speech: Is speech slurred or inappropriate Time: Time is critical, call 911 immediately Heart Attack Signs Chest discomfort: Most heart attacks involve discomfort in the center of the chest and lasts more than a few minutes, or goes away and comes back. It can feel like uncomfortable pressure, squeezing, fullness or pain. Discomfort in upper body: Symptoms can include pain or discomfort in one or both arms, back, neck, jaw or stomach. Shortness of breath: With or without discomfort. Other signs: Breaking out in a cold sweat, nausea, or lightheaded. Remember, MINUTES DO MATTER. If you experience any of these heart attack warning signs, call [id number] to get immediate medical attention! Education Materials Pressure Injury A pressure injury is damage to the skin and underlying tissue that results from pressure being applied to an area of the body. It often affects people who must spend a long time in a bed or chair because of a medical condition. Pressure injuries usually occur: Over bony parts of the body, such as the tailbone, shoulders, elbows, hips, heels, spine, ankles, and back of the head. Under medical devices that make contact with the body, such as respiratory equipment, stockings, tubes, and splints. Pressure injuries start as reddened areas on the skin and can lead to pain and an open wound. What are the causes? This condition is caused by frequent or constant pressure to an area of the body. Decreased blood flow to the skin can eventually cause the skin tissue to and break down, causing a wound. What increases the risk? You are more likely to develop this condition if you: Are in the hospital or an extended care facility. Are bedridden or in a wheelchair. Have an injury or disease that keeps you from: Moving normally. Feeling pain or pressure. Have a condition that: Makes you sleepy or less alert. Causes poor blood flow. Need to wear a medical csr. Have poor control of your bladder or bowel functions (incontinence). Have poor nutrition (malnutrition). If you are at risk for pressure injuries, your health care provider may recommend certain types of mattresses, mattress covers, pillows, cushions, or boots to help prevent them. These may include products filled with air, foam, gel, or sand. What are the signs or symptoms? Symptoms of this condition depend on the severity of the injury. Symptoms may include: Red or dark areas of the skin. Pain, warmth, or a change of skin texture. Blisters. An open wound. How is this diagnosed? This condition is diagnosed with a medical history and physical exam. You may also have tests, suchas: Blood tests. Imaging tests. Blood flow tests. Your pressure injury will be staged based on its severity. Staging is based on: The depth of the tissue injury, including whether there is exposure of muscle, bone, or tendon. The cause of the pressure injury. How is this treated? This condition may be treated by: Relieving or redistributing pressure on your skin. This includes: Frequently changing your position. Avoiding positions that caused the wound or that can make the wound worse. Using specific bed mattresses, chair cushions, or protective boots. Moving medical devices from an area of pressure, or placing padding between the skin and the device. Using foams, creams, or powders to prevent rubbing (friction) on the skin. Keeping your skin clean and dry. This may include using a skin cleanser or skin barrier as told by your health care provider. Cleaning your injury and removing any tissue from the wound (debridement). Placing a bandage (dressing) over your injury. Using medicines for pain or to prevent or treat infection. Surgery may be needed if other treatments are not working or if your injury is very deep. Follow these instructions at home: Wound care Follow instructions from your health care provider about how to take care of your wound. Make sure you: Wash your hands with soap and water before and after you change your bandage (dressing). If soap and water are not available, use hand mill work. Change your dressing as told by your health care provider. Check your wound every day for signs of infection. Have a caregiver do this for you if you are not able. Check for: Redness, swelling, or increased pain. More fluid or blood. Warmth. Pus or a bad smell. Skin care Keep your skin clean and dry. Gently pat your skin dry. Do not rub or massage your skin. You or a caregiver should check your skin every day for any changes in color or any new blisters orsores (ulcers). Medicines Take disj-qai-beeoyno and prescription medicines only as told by your health care provider. If you were prescribed an antibiotic medicine, take or apply it as told by your health care provider. Do not stop using the antibiotic even if your condition improves. Reducing and redistributing pressure Do not lie or sit in one position for a long time. Move or change position every 12 hours, or astold by your health care provider. Use pillows or cushions to reduce pressure. Ask your health care provider to recommend cushions or pads for you. General instructions Eat a healthy diet that includes lots of protein. Drink enough fluid to keep your urine pale yellow. Be as active as you can every day. Ask your health care provider to suggest safe exercises or activities. Do not abuse drugs or alcohol. Do not use any products that contain nicotine or tobacco, such as cigarettes, e- cigarettes, and chewing tobacco. If you need help quitting, ask your health care provider. Keep all follow-up visits as told by your health care provider. This is important. Contact a health care provider if: You have: A fever or chills. Pain that is not helped by medicine. Any changes in skin color. New blisters or sores. Pus or a bad smell coming from your wound. Redness, swelling, or pain around your wound. More fluid or blood coming from your wound. Your wound does not improve after 12 weeks of treatment. Summary A pressure injury is damage to the skin and underlying tissue that results from pressure being applied to an area of the body. Do not lie or sit in one position for a long time. Your health care provider may advise you to moveor change position every 12 hours. Follow instructions from your health care provider about how to take care of your wound. Keep all follow-up visits as told by your health care provider. This is important. This information is not intended to replace advice given to you by your health care provider. Make sure you discuss any questions you have with your health care provider. Document Revised: 03/08/2022 Document Reviewed: 03/08/2022 [employer] Patient Education 2022 [employer] Preventing Pressure Injuries A pressure injury, sometimes called a bedsore or a pressure ulcer, is an injury to the skin and underlying tissue caused by pressure. A pressure injury can happen when your skin presses against a surface, such as a mattress or wheelchair seat, for too long. The pressure on the blood vessels causes reduced blood flow to your skin. This can eventually cause the skin tissue to and break down into a wound. Pressure injuries usually develop: Over bony parts of the body, such as the tailbone, shoulders, elbows, hips, and heels. Under medical devices, such as respiratory equipment, stockings, tubes, and splints. How can this condition affect me? Pressure injuries are caused by a lack of blood supply to an area of skin. These injuries begin as a reddened area on the skin and can become an open sore. They can result from intense pressure over a short period of time or from less pressure over a long period of time. Pressure injuries can vary in severity. They can cause pain, muscle damage, and infection. What can increase my risk? This condition is more likely to develop in people who: Are in the hospital or an extended care facility. Are bedridden or in a wheelchair. Have an injury or disease that keeps them from: Moving normally. Feeling pain or pressure. Communicating if they feel pain or pressure. Have a condition that: Makes them sleepy or less alert. Causes poor blood flow. Need to wear a medical csr. Have poor control of their bladder or bowel functions (incontinence). Have poor nutrition (malnutrition). Have had this condition before. Are of certain ethnicities. People of , , or descent are at higher risk compared to other ethnic groups. What actions can I take to prevent pressure injuries? Reducing and redistributing pressure Do not lie or sit in one position for a long time. Move or change position: Every hour when out of bed in a chair. Every two hours when in bed. As often as told by your health care provider. Use pillows, wedges, or cushions to redistribute pressure. Ask your health care provider to recommend a mattress, cushions, or pads for you. Use medical devices that do not rub your skin. Tell your health care provider if one of your medical devices is causing pain or irritation. Skin care If you are in the hospital, your health care providers: Will inspect your skin, including areas under or around medical devices, at least twice a day. May recommend that you use certain types of bedding to help prevent pressure injuries. These may include a pad, mattress, or chair cushion that is filled with gel, air, water, or foam. Will evaluate your nutrition and consult a dietitian if needed. Will inspect and change any wound dressings regularly. May help you move into different positions every few hours. Will adjust any medical devices and braces as needed to limit pressure on your skin. Will keep your skin clean and dry. May use gentle cleansers and skin protectants if you are incontinent. Will moisturize any dry skin. In general, at home: Keep your skin clean and dry. Gently pat your skin dry. Do not rub or massage bony areas of your skin. Moisturize dry skin. Use gentle cleansers and skin protectants routinely if you are incontinent. Check your skin at least once a day for any changes in color and for any new blisters or sores. Make sure to check under and around any medical devices and between skin folds. Have a caregiver do this for you if you are not able. Lifestyle Be as active as you can every day. Ask your health care provider to suggest safe exercises or activities. Do not abuse drugs or alcohol. Do not use any products that contain nicotine or tobacco, such as cigarettes, e- cigarettes, and chewing tobacco. If you need help quitting, ask your health care provider. General instructions Take eytw-nyc-tmsuire and prescription medicines only as told by your health care provider. Work with your health care provider to manage any chronic health conditions. Eat a healthy diet that includes protein, vitamins, and minerals. Ask your health care provider what types of food you should eat. Drink enough fluid to keep your urine pale yellow. Keep all follow-up visits as told by your health care provider. This is important. Contact a health care provider if you: Feel or see any changes in your skin. Summary A pressure injury, sometimes called a bedsore or a pressure ulcer, is an injury to the skin and underlying tissue caused by pressure. Do not lie or sit in one position for a long time. Check your skin at least once a day for any changes in color and for any new blisters or sores. Make sure to check under and around any medical devices and between skin folds. Have a caregiver dothis for you if you are not able. Eat a healthy diet that includes protein, vitamins, and minerals. Ask your health care provider what types of food you should eat. This information is not intended to replace advice given to you by your health care provider. Make sure you discuss any questions you have with your health care provider. Document Revised: 03/08/2022 Document Reviewed: 03/08/2022 [employer] Patient Education 2022 [employer] Acute Mesenteric Ischemia Mesenteric ischemia is poor blood flow (circulation) in the vessels that supply blood to the stomach, intestines, and liver (mesenteric organs). Acute mesenteric ischemia is a sudden restriction in blood supply to the intestines. This can be a life-threatening condition. What are the causes? This condition is caused by something that blocks or narrows a blood vessel that supplies the intestines. This reduces blood flow to the intestines. Common causes include: A blood clot. Low blood pressure. Heart disease. Narrowing of the arteries from blood vessel (vascular) disease. Shock. Certain illegal drugs and prescription medicines, such as cocaine or digoxin. What increases the risk? The following factors may make you more likely to develop this condition: Being over the age of 50. Having a history of coronary or vascular disease. Having an irregular heartbeat (arrhythmia). Being a smoker. What are the signs or symptoms? Symptoms of this condition include: Sudden, severe abdominal pain or bloating. Blood in the stool. Nausea or vomiting. Diarrhea that may be bloody. Fever. How is this diagnosed? This condition may be diagnosed with: A medical history. A physical exam. A surgical procedure to examine the organs inside the abdomen (exploratory laparotomy). Tests, such as: X-rays. CT scans. Blood tests. Angiogram. This imaging test uses a dye to obtain a picture of blood flow to the intestine. How is this treated? Treatment depends on the cause of the ischemia and other medical conditions that you may have. It may include: A procedure to remove the blood clot (endovascular embolectomy). A catheter is inserted into an incision in your groin. It is then moved to the blocked area where the clot can be retrieved. Surgery to remove the clot through an incision in your abdomen (surgical embolectomy). A procedure to widen the narrowed blood vessel (angioplasty). A catheter is inserted into an incision in your groin and moved up your artery until it reaches the narrowed part. A balloon or a small metal tube (stent) may be used to widen the narrowed artery and keep it open. Vascular bypass grafting. This is a surgery to bypass the blocked area. Bowel resection with or without an ostomy. In this procedure, intestines that have been damaged from the loss of blood supply are removed. If needed, a surgeon may take the remaining intestine and attach it to an opening in your abdomen (ostomy). The ostomy will allow waste to pass through. Other treatments may include: Medicines that dissolve clots (thrombolytics). Blood thinning medicines (anticoagulants) to stop clots from forming or growing. Antibiotic medicine to treat any infections. Follow these instructions at home: If you have surgery, follow instructions from your health care provider about home care after the procedure. Medicines Take qfgr-rrw-hrpbcvb and prescription medicines only as told by your health care provider. If you are taking an anticoagulant medicine: Take the medicine at the same time every day. Understand what foods and drugs interact with your medicine. Understand the side effects of this medicine, including excessive bruising or bleeding. Ask your health care provider or pharmacist about other side effects. If you were prescribed an antibiotic medicine, take it as told by your health care provider. Do notstop taking the antibiotic even if you start to feel better. General instructions Ask your health care provider when you may return to your normal activities. If you are taking anticoagulants, avoid activities that increase your risk of injury. Avoid sitting or lying for a long time without moving. Do not use any products that contain nicotine or tobacco, such as cigarettes and e-cigarettes. If you need help quitting, ask your health care provider. Eat a healthy diet that includes plenty of vegetables, fruits, low-fat dairy products, and lean protein. Keep all follow-up visits as told by your health care provider. This is important. Contact a health care provider if you have: Unusual bruising. A fever. Vomiting or diarrhea. Pain in the abdomen. Get help right away if you: Have chest pain or shortness of breath. Notice blood in your vomit, stool, or urine. Cough up blood. These symptoms may represent a serious problem that is an emergency. Do not wait to see if the symptoms will go away. Get medical help right away. Call your local emergency services (911 in the [place] Do not drive yourself to the hospital. Summary Acute mesenteric ischemia is a sudden restriction in blood supply to the intestines. Treatment depends on the cause of the ischemia and other medical conditions that you may have. If you have surgery, follow instructions from your health care provider about home care after the procedure. This information is not intended to replace advice given to you by your health care provider. Make sure you discuss any questions you have with your health care provider. Document Revised: 06/30/2021 Document Reviewed: 07/04/2021 [employer] Patient Education 2022 [employer] Fall Prevention in Hospitals, Adult Being a patient in the hospital puts you at risk for falling. Falls can cause serious injury and harm, but they can be prevented. It is important to understand what puts you at risk for falling and what you and your health care team can do to prevent you from falling. If you or a loved one falls inthe hospital, it is important to tell the hospital staff about it. What increases my risk? Certain conditions and treatments may increase your risk of falling in the hospital. These include: Being in an unfamiliar environment, especially when using the bathroom at night. Having surgery. Being on bed rest. Taking many medicines or certain types of medicines, such as sleeping pills. Having tubes in place, such as IV lines or catheters. Other risk factors for falls in a hospital include: Having difficulty with hearing or vision. Having a change in thinking or behavior, such as confusion. Having depression. Having trouble with balance or feeling dizzy. Needing to use the toilet frequently. Having fallen during the past 3 months. Having low blood pressure. What are some strategies for preventing falls? If you or a loved one has to stay in the hospital: Ask about which fall prevention strategies will be in place. Speak up if the fall prevention plan changes. Ask for help moving around, especially after surgery or when not feeling well. If you have been asked to call for help when getting up, do not get up by yourself. Asking for helpto get up is for your safety, and the staff is there to help you. Wear nonskid footwear. Get up slowly, and sit at the side of the bed for a few minutes before standing up. Keep items you need close to you, such as the nurse call button or a phone, so that you do not needto reach for them. Wear eyeglasses or hearing aids if they have been prescribed. Have someone stay in the hospital with you or your loved one. Ask if sleeping pills or other medicines that can cause confusion are necessary. What does the hospital staff do to help prevent falls? Hospitals have systems in place to prevent falls and accidents, which may involve: Discussing your fall risks and making a personalized fall prevention plan. Checking in regularly to see if you need help. Placing an arm band on your wrist or a sign near your room to alert other staff of your needs. Using an alarm on your hospital bed. This is an alarm that goes off if you get out of bed and forget to call for help. Keeping the bed in a low and locked position. Keeping the area around the bed and bathroom well-lit and free from clutter. Keeping your room quiet, so that you can sleep and be well rested. Using safety equipment, such as: A belt around your waist. Walkers, crutches, and other devices for support. Safety beds, such as low beds, or cushions on the floor next to the bed. Having a staff person stay with you (one-on-one observation), even when you are using the bathroom.This is for your safety. Using video monitoring. This allows a staff member to come to you if you need help. What other actions can I take to lower my risk of falls? Check in regularly with your health care provider or pharmacist to review all medicines that you take. Make sure that you have a regular exercise program to stay fit. This will help you maintain your balance. Talk with a physical therapist or strainer mill operator if recommended by your health care provider. He or she can help you improve your strength, balance, and endurance. If you are over age 65: Ask your health care provider if you need a calcium or vitamin D supplement. Have your eyes and hearing checked every year. Have your feet checked every year. Where to find more information Centers for Disease Control and Prevention: www.cdc.gov Summary Being in an unfamiliar environment, such as the hospital, increases your risk for falling. If you have been asked to call for help when getting up, do not get up by yourself. Asking for helpto get up is for your safety, and the staff is there to help you. Ask about which fall prevention strategies will be in place. Speak up if the fall prevention plan changes. If you or a loved one falls, tell the hospital staff. This is important. This information is not intended to replace advice given to you by your health care provider. Make sure you discuss any questions you have with your health care provider. Document Revised: 12/14/2020 Document Reviewed: 12/14/2020 [employer] Patient Education 2022 [employer] Note * MD Gr Peter: PERFORM, MODIFY Event Display: Brief Operative Note Authored Date: [id number] BRIEF OPERATIVE NOTE Name: LOGAN MARCELINO Patient Number: [id number] : 1940 Date of Service: 05/11/2023 Pre-op Diagnosis: Acute on chronic mesenteric ischemia Post-op Diagnosis: Acute on chronic mesenteric ischemia Procedure: Percutaneous ultrasound guided left radial artery access Mesenteric angiogram Selective angiogram SMA Balloon angioplasty SMA bypass limb w/ Carlton 5x80mm, 7x20mm and 8 x 60mm balloon 7x59mm VBX stent deployment SMA bypass limb Diagnostic angiogram LUE Coil embolization distal left radial artery w/ 3x6mm Cook coil TR band placement distal left radial artery Surgeon: Carolin Assistants: Simón Anesthesia: General Estimated Blood Loss: 150 _ Less than 50ml Drains: _ Fluids: _ Urinary Output: _ Contrast 57cc mGy 831 Time 29min Condition: Stable to PACU Complications: Transection of left radial artery requiring coil embolization Specimen: _ _ None Findings: SMA stent patent with resolution of SMA bypass stenosis LUE angiogram with intact ulnar and interosseus artery and complete palmar arch Check one _ Pharmacologic VTE prophylaxis not indicated x Standard VTE prophylactic regimen ordered _ Pharmacologic VTE prophylaxis contraindicated due to increased risk of intraoperative and / or postoperative bleeding Check one _ No antibiotics indicated x Standard prophylactic antibiotic regimen ordered _ Antibiotic regimen changed due to concern for infection 150mg Plavix 1hr, then 75mg daily heparin drip 500 units per hour in 4hr, then increase to therapeutic without loading dose in 6hr Non weight bearing LUE TR band for 1hr NPO q2h neurovascular checks, left hand NO IV LUE Monitor for visceral reperfusion injury Electronic Signature on File Electronically Reviewed/Signed by: Pineda Gr MD Author Signature Dt/Tm:05/14/2023 12:11 PM [facility]ident [facility] * DO Manriquez Melissa R: VERIFY DO Manriquez Melissa R: VERIFY, TRANSCRIBE Event Display: CP PB Dx Authored Date: Automated CBC and peripheral blood smear reveal normocytic, hypochromic anemia. Red blood cells show moderate anisopoikilocytosis with numerous elliptocytes, occasional ovalocytes, ecchinocytes and increased polychromasia. No schistocytes or nucleated red blood cells are seen. Neutrophils, lymphocytes and monocytes are unremarkable. No blasts are seen. Platelets have normal morphology. The reticulocyte production index is inadequate for the degree of anemia consistent with a hypoproliferative process. The anemia is likely secondary to acute blood loss. Given low reticulocyte hemoglobin of 25.2 pg, an underlying element of iron deficiency is likely. Iron studies and clinical correlation are recommended. Yanely Manriquez DO (Electronically signed by) Verified: 05/13/2023 14:59 EST Performing Location: [facility] * DO Manriquez Melissa R: VERIFY DO Manriquez Melissa R: VERIFY, PERFORM Event Display: CP PB Part type Authored Date: [id number] Peripheral blood smear Patient Care team information Care Team Personnel Name: LUIZ Maldonado Terra L Position: Nurse Pract - Vascular Surg Member Role: Lifetime Relationship Address: Address: [address] [place] [id number] [place] Name: LUIZ Mendez Lester C Position: Referring Member Role: Primary Care Provider Address: Address: [address] [place] [address] [place] Name: SARA Horvath Lynn Position: Physician [employer] Assembler Exempt - Vasc Surg Member Role: Lifetime Relationship Address: Address: [address] [place] [address] [place] Name: Maye Reyes Ashley Position: Pharmacist Schedule II Member Role: Pharmacy - Lifetime Name: Maye Hester Kyle Position: Pharmacist Member Role: Pharmacy - Lifetime Address: Address: [address] [place] [id number] [place] Care Team Related Persons Name: HOUSTON ANDERSON
[2023-05-30] MEDS: ACETAMINOPHEN 325 MG TAB PO PRN (18:27)
[2023-05-30] MEDS: ENALAPRIL MALEATE 10 MG TAB PO SCH (21:54)
[2023-05-30] MEDS: PANTOprazole 40 MG TAB PO SCH (21:54)
[2023-05-30] MEDS: LATANOPROST 0.005% OP SOLN 2.5 ML BTL OPB SCH (21:55)
[2023-05-30] MEDS: SUCRALFATE 1 GM TAB PO SCH (21:55)
[2023-05-30] MEDS: ATORVASTATIN 10 MG TAB PO SCH (21:55)
[2023-05-31] MEDS: ACETAMINOPHEN 325 MG TAB PO PRN ×5 (00:02→22:40)
[2023-05-31] MEDS: cephALEXin 500 MG CAP PO SCH ×4 (03:15→21:13)
[2023-05-31] MEDS: methIMAzole 5 MG TABLET PO SCH (05:30)
[2023-05-31 07:19] LABS: Basophils # (auto) 0.06 K/uL (0.00-0.20); Basophils % (auto) 1.1 %; Eosinophils # (auto) 0.25 K/uL (0.00-0.50); Eosinophils % (auto) 4.6 %; Hematocrit (blood only) 25.8 % (37.0-47.0); Hemoglobin 7.7 g/dl (12.0-16.0); Immature Granulocytes # (auto) 0.01 K/uL (0.01-0.20); Immature Granulocytes % (auto) 0.2 %; Lymphocytes # (auto) 1.84 K/uL (1.20-3.40); Lymphocytes % (auto) 33.5 %; Mean Corpuscular Hemoglobin 26.9 pg (25.0-34.0); Mean Corpuscular Hgb Conc 29.8 g/dL (32.0-36.0); Mean Corpuscular Volume 90.2 fL (80.0-100.0); Mean Platelet Volume 10.8 fL (9.4-12.4); Monocytes % (auto) 12.8 %; Neutrophils # (auto) 2.63 K/uL (1.40-6.50); Neutrophils % (auto) 47.8 %; Platelet Count 251 K/uL (130-400); RDW Coefficient of Variation 18.9 % (11.5-14.5); RDW Standard Deviation 62.8 fL (36.4-46.3); Red Blood Count 2.86 M/uL (4.20-5.40); White Blood Count 5.49 K/ul (4.8-10.8)
--- NOTE | 2023-05-31 07:29 | Hospitalist Progress Note ---
Date of Service May 31, 2023 Assessment & Plan (1) Fall: Plan: Fall 1/ Right knee x-ray: No acute bony abnormality CThead: No acute intracranial abnormality X-ray right hand: No acute fracture, osteopenia and arthritic change X-ray left forearm: Impacted fracture of the distal radius and overlying soft tissue edema. CTC-spine: No acute fracture/subluxation X-ray hip/pelvis: no hip fracture With ambulatory dysfunction, immobilized left hand and limited use of right hand and falls patient is not able to meet independent goals at home at this time. PT/OT/CM consulted for placement evaluation Head wound sutured after greater than 6 hours, increased risk of infection and will continue prophylactic course of Keflex 500 mg p.o. every 6 hours (2) SMAS (superior mesenteric artery syndrome): Plan: History of mesenteric ischemia S/p supraceliac aorta to SMA/celiac coronary bypass 2021 with recurrent chronic mesenteric ischemia. S/p aorto to SMA stent placement and balloon angiogram 05/11/2023, followed in the SICU at [facility] and subsequently progressed with good pain control. Was discharged 05/13/2023. 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 (3) Liver lesion: Plan: Liver lesions Stable and cystic Unlikely to be abscesses, previously discussed with infectious disease 04/2023 No acute change (4) Pulmonary nodules: Plan: Pulmonary nodules Stable, outpatient follow-up (5) Atrial fibrillation: Plan: Atrial fibrillation Eliquis temporarily held due to bleeding and fractures, acute blood loss anemia is noted at this time we will hold Eliquis until we are sure her hemoglobin stabilizes and there is no other surreptitious source of blood loss Continue diltiazem for rate control at this time (6) Hyperthyroidism: Plan: Hyperthyroidism Stable, continue methimazole (7) Acute blood loss anemia: Plan: PT with falling hgb, no long bone fractures, did have scalp laceration on e liquis Recheck hemoglobin shows stability checked abd/pelvis cT no intra-abdominal retroperitoneal bleed is seen. Comments of previous SMA surgery are noted Plan DVT prophylaxis: scd Diet: Heart healthy Amount of cystitis on CT check urine analysis, patient is on Keflex for scalp wound CODE STATUS: Full code Admission and Anticipated Discharge Date Admission Date: May 30, 2023 Subjective Patient is with some distress having fractures of her left radius She has no abdominal pain denies any melena bleeding has been controlled from her scalp wound Physical Exam Physical Exam: Patient is a splint on her left arm and splints on 2 of her fingers on the right hand although there is no fractures identified on x-ray. Her head wound has a staple in place hemostasis is achieved She is frail and weak and appearing Cardiac exam is regular lungs are clear abdomen is NABS and soft Results & Data Results & Data Vital Signs (Past 12 Hours) Vital Signs Temp Pulse Resp BP Pulse Ox O2 Del Method 05/30/23 21:35 98.4 F 109 H 16 125/69 97 Room Air 05/30/23 21:10 82 16 103/82 96 Room Air Laboratory Results Reviewed CBC including repeat hemoglobin Reviewed chemistry PG Care Time/CCT Total # of Minutes Spent Total Time Spent with Patient: Total time spent is greater than 50% in coordination of care (as documented) at patient's floor/unit and/or counseling patient: Coding Level of Care Code 96661 SUB INP/OBS CARE 3/50MIN Diagnoses Fall W19.XXXA Encounter type: initial encounter SMAS (superior mesenteric artery syndrome) K55.1 Liver lesion K76.9 Pulmonary nodules R91.8 Longstanding persistent atrial fibrillation I48.11 Atrial fibrillation type: longstanding persistent Hyperthyroidism E05.90 Acute blood loss anemia D62 (1) Fall Encounter type: initial encounter Qualified Code(s): W19.XXXA - Unspecified fall, initial encounter (5) Atrial fibrillation Atrial fibrillation type: longstanding persistent Qualified Code(s): I48.11 - Longstanding persistent atrial fibrillation
[2023-05-31 07:36] LABS: Calcium 7.9 mg/dl (8.6-10.3); Creatinine Clr Calc Pharmacy 52.2 ml/min; Est GFR (African American) 99.1 ml/min; Est GFR (Non-African American) 85.5 ml/min; Potassium 3.8 mmol/L (3.5-5.1)
[2023-05-31 07:51] LABS: Acanthocytes 1+; Ovalocytes 1+
[2023-05-31] MEDS ORDERED: APIXABAN 2.5 MG TAB PO SCH (09:00)
[2023-05-31] MEDS ORDERED: UMECLIDINIUM/VILANTEROL 62.5/25MCG 7 PUFFS/INHALER INH SCH (09:00)
[2023-05-31] MEDS: SUCRALFATE 1 GM TAB PO SCH ×2 (10:39→20:11)
[2023-05-31] MEDS: dilTIAZem HCL 240 MG CAPCR PO SCH (10:40)
[2023-05-31] MEDS: FLUTICASONE FUROATE 100MCG 14 PUFFS/INHALER INH SCH (10:41)
[2023-05-31] MEDS: UMECLIDINIUM/VILANTEROL 62.5/25MCG 7 PUFFS/INHALER INH SCH (10:41)
[2023-05-31] MEDS: PANTOprazole 40 MG TAB PO SCH ×2 (10:41→20:11)
--- NOTE | 2023-05-31 11:24 | Electrocardiogram Report ---
Test Reason : Blood Pressure : / mmHG Vent. Rate : 110 BPM Atrial Rate : 147 BPM P-R Int : 000 ms QRS Dur : 066 ms QT Int : 314 ms P-R-T Axes : 000 019 034 degrees QTc Int : 424 ms Atrial fibrillation with rapid ventricular response Low voltage QRS Cannot rule out Anteroseptal infarct (cited on or before 07-AUG-2021) Abnormal ECG When compared with ECG of 29-MAY-2023 19:21, No significant change Confirmed by Farhad Temple ([id number]) on 05/31/2023 11:23:46 AM Referred By: REFERRED SELF Confirmed By:Farhad Temple
--- NOTE | 2023-05-31 12:36 | CT Scan Report ---
ABDOMEN AND PELVIS CT WITH IV AND ORAL CONTRAST CT DOSE: 418.5 mGy.cm HISTORY: Generalized abdominal pain. eval for retroperitoneal bleeding TECHNIQUE: Multiaxial CT images of the abdomen and pelvis were performed following the use of intrave nous and oral contrast. A dose lowering technique was utilized adhering to the principles of ALARA. COMPARISON STUDY: Abdomen and pelvis CTA 05/10/2023. FINDINGS: There is a linear density within the lingula suggestive of subsegmental atelectasis or scar ring. Punctate calcified granuloma within the left lower lobe. No pneumoperitoneum. No pneumatosis. P ostoperative changes again noted within the proximal left femur. Degenerative changes and scoliosis w ithin the lumbar spine. Prior midline incision. There is a small hiatus hernia. Cholecystectomy. Mult iple hypodense lesions within the liver and kidneys are not significantly changed. These favor cysts. 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 Calcifications within the renal sinuses appear to be vascular. The main portal vein is patent. The pancreas, spleen, right adrenal gland unremarkable. There is stable 18 mm left adrenal gland nodule. No retroperitoneal or pelvic lymphadenopathy. No pe lvic free fluid. Bladder wall thickening with adjacent fat stranding. Prior hysterectomy. Colonic div erticulosis. No evidence for acute diverticulitis. No evidence for bowel obstruction. Normal appendix . Extensive calcified plaque within the ectatic abdominal aorta. There is also extensive calcified pl aque within the iliac arteries resulting in a focal fppa-ze-[id number] stenosis of the iliac arteries. 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 There is been interval placement o f a stent within the celiac/superior mesenteric artery bypass. The stent appears patent. Inflammatory change surrounding the stent in mid superior mesenteric artery has slightly progressed. No active ar terial extravasation to suggest an acute hemorrhage. There is complete thrombosis at the origin of th e [place] superior mesenteric artery, unchanged. Thickening of the small bowel loops has improved/reso lved in the interval. 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 Mild stenosis of the proximal b ilateral renal arteries again noted. No retroperitoneal hemorrhage. IMPRESSION: 1. Interval stenting of the celiac to superior mesenteric artery bypass.. The stent appears patent. N onspecific infiltration/inflammatory change surrounding the stent and mid superior mesenteric artery has slightly progressed. 2. 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 3. No active arterial extravasation to suggest acute hemorrhage at this time. 4. Small bowel wall thickening has improved suggesting a resolving enteritis. 5. Bladder wall thickening with adjacent fat stranding. This suggests a cystitis. Recommend correlate with urinalysis. 6. No retroperitoneal hemorrhage. 7. 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 8. Additional findings as described above. ACT 112: Negative or not required by law. Electronically signed by: Leonard Lucia M.D. 05/31/2023 12:34 PM
[2023-05-31] MEDS: LATANOPROST 0.005% OP SOLN 2.5 ML BTL OPB SCH (20:11)
[2023-05-31] MEDS: ATORVASTATIN 10 MG TAB PO SCH (20:11)
[2023-05-31] MEDS: ENALAPRIL MALEATE 10 MG TAB PO SCH (20:15)
[2023-06-01] MEDS: MoRPHine SULFATE 2 MG/ML CARP IV PRN ×2 (00:01→13:40)
[2023-06-01] MEDS: ACETAMINOPHEN 325 MG TAB PO PRN ×2 (03:19→10:46)
[2023-06-01] MEDS: cephALEXin 500 MG CAP PO SCH ×2 (04:55→10:46)
[2023-06-01] MEDS: methIMAzole 5 MG TABLET PO SCH (06:30)
[2023-06-01 07:26] LABS: Basophils # (auto) 0.07 K/uL (0.00-0.20); Basophils % (auto) 1.1 %; Eosinophils % (auto) 6.5 %; Hematocrit (blood only) 28.7 % (37.0-47.0); Hemoglobin 8.6 g/dl (12.0-16.0); Immature Granulocytes # (auto) 0.02 K/uL (0.01-0.20); Immature Granulocytes % (auto) 0.3 %; Lymphocytes # (auto) 2.26 K/uL (1.20-3.40); Lymphocytes % (auto) 36.7 %; Mean Platelet Volume 10.9 fL (9.4-12.4); Monocytes # (auto) 0.76 K/uL (0.11-0.59); Monocytes % (auto) 12.4 %; Neutrophils # (auto) 2.64 K/uL (1.40-6.50); Platelet Count 251 K/uL (130-400); RDW Coefficient of Variation 18.7 % (11.5-14.5); RDW Standard Deviation 62.3 fL (36.4-46.3); Red Blood Count 3.19 M/uL (4.20-5.40); White Blood Count 6.15 K/ul (4.8-10.8)
[2023-06-01 07:59] LABS: BUN Creatinine Ratio 21.7 (10-20); Calcium 8.1 mg/dl (8.6-10.3); Creatinine Clr Calc Pharmacy 34.1 ml/min; Est GFR (African American) 67.7 ml/min; Est GFR (Non-African American) 58.4 ml/min; Potassium 4.1 mmol/L (3.5-5.1)
--- NOTE | 2023-06-01 08:06 | Hospitalist Progress Note ---
Date of Service June 01, 2023 Assessment & Plan (1) Fall: Plan: Fall / Right knee x-ray: No acute bony abnormality CThead: No acute intracranial abnormality X-ray right hand: No acute fracture, osteopenia and arthritic change X-ray left forearm: Impacted fracture of the distal radius and overlying soft tissue edema. CTC-spine: No acute fracture/subluxation X-ray hip/pelvis: no hip fracture pain at radial fracture, will have scheduled tylenol, elevated ice and prn oxycodone With ambulatory dysfunction, immobilized left hand and limited use of right hand and falls patient is not able to meet independent goals at home at this time. PT/OT/CM consulted for placement evaluation Head wound sutured after greater than 6 hours, increased risk of infection and will continue prophylactic course of Keflex 500 mg p.o. every 6 hours (2) SMAS (superior mesenteric artery syndrome): Plan: History of mesenteric ischemia S/p supraceliac aorta to SMA/celiac coronary bypass 2021 with recurrent chronic mesenteric ischemia. S/p aorto to SMA stent placement and balloon angiogram 05/11/2023, followed in the SICU at [facility] [place] and subsequently progressed with good pain control. Was discharged 05/13/2023. 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 (3) Liver lesion: Plan: Liver lesions Stable and cystic Unlikely to be abscesses, previously discussed with infectious disease 04/2023 No acute change (4) Pulmonary nodules: Plan: Pulmonary nodules Stable, outpatient follow-up (5) Atrial fibrillation: Plan: Atrial fibrillation Eliquis temporarily held due to bleeding and fractures, acute blood loss anemia is noted at this time we will hold Eliquis until we are sure her hemoglobin stabilizes and there is no other surreptitious source of blood loss Continue diltiazem for rate control at this time (6) Hyperthyroidism: Plan: Hyperthyroidism Stable, continue methimazole (7) Acute blood loss anemia: Plan: PT with falling hgb, no long bone fractures, did have scalp laceration on eliquis Recheck hemoglobin shows stability checked abd/pelvis cT no intra-abdominal retroperitoneal bleed is seen. Comments of previous SMA surgery are noted Plan DVT prophylaxis: scd add melatonin for sleep Amount of cystitis on CT check urine analysis, patient is on Keflex for scalp wound urine culture pedning CODE STATUS: Full code Admission and Anticipated Discharge Date Admission Date: May 30, 2023 Subjective Patient is in good spirits, with some distress having fractures of her left radius She has no abdominal pain denies any melena bleeding has been controlled from her scalp wound Physical Exam Physical Exam: Patient is a splint on her left arm and splints on 2 of her fingers on the right hand although there is no fractures identified on x-ray. she state her left wrist was painful overnight Her head wound has a staple in place hemostasis is achieved She is frail and weak and appearing Cardiac exam is regular lungs are clear abdomen is NABS and soft Results & Data Results & Data Vital Signs (Past 12 Hours) Vital Signs Pulse BP 06/01/23 00:04 81 117/71 Laboratory Results reviewed cbc reviewed chemistry PG Care Time/CCT Total # of Minutes Spent Total Time Spent with Patient: Total time spent is greater than 50% in coordination of care (as documented) at patient's floor/unit and/or counseling patient: Coding Level of Care Code 62374 SUB INP/OBS CARE 3/50MIN Diagnoses Fall W19.XXXA Encounter type: initial encounter SMAS (superior mesenteric artery syndrome) K55.1 Liver lesion K76.9 Pulmonary nodules R91.8 Longstanding persistent atrial fibrillation I48.11 Atrial fibrillation type: longstanding persistent Hyperthyroidism E05.90 Acute blood loss anemia D62 (1) Fall Encounter type: initial encounter Qualified Code(s): W19.XXXA - Unspecified fall, initial encounter (5) Atrial fibrillation Atrial fibrillation type: longstanding persistent Qualified Code(s): I48.11 - Longstanding persistent atrial fibrillation
[2023-06-01] MEDS: dilTIAZem HCL 240 MG CAPCR PO SCH (08:11)
[2023-06-01] MEDS: UMECLIDINIUM/VILANTEROL 62.5/25MCG 7 PUFFS/INHALER INH SCH (08:12)
[2023-06-01] MEDS: SUCRALFATE 1 GM TAB PO SCH ×2 (08:12→21:11)
[2023-06-01] MEDS: PANTOprazole 40 MG TAB PO SCH ×2 (08:12→21:11)
[2023-06-01] MEDS: FLUTICASONE FUROATE 100MCG 14 PUFFS/INHALER INH SCH (08:13)
[2023-06-01] MEDS ORDERED: oxyCODONE HCL IR 5 MG TAB (IMMEDIATE RELEASE) PO PRN (13:01)
[2023-06-01] MEDS: ACETAMINOPHEN 500 MG TAB PO SCH ×2 (13:40→21:11)
[2023-06-01] MEDS: MELATONIN 3 MG TAB PO SCH (21:11)
[2023-06-01] MEDS: ATORVASTATIN 10 MG TAB PO SCH (21:11)
[2023-06-01] MEDS: LATANOPROST 0.005% OP SOLN 2.5 ML BTL OPB SCH (21:12)
[2023-06-01] MEDS: ENALAPRIL MALEATE 10 MG TAB PO SCH (23:29)
[2023-06-02] MEDS: methIMAzole 5 MG TABLET PO SCH (06:43)
[2023-06-02 07:08] LABS: Basophils # (auto) 0.07 K/uL (0.00-0.20); Eosinophils # (auto) 0.39 K/uL (0.00-0.50); Eosinophils % (auto) 5.4 %; Hemoglobin 7.2 g/dl (12.0-16.0); Immature Granulocytes # (auto) 0.03 K/uL (0.01-0.20); Immature Granulocytes % (auto) 0.4 %; Lymphocytes # (auto) 1.94 K/uL (1.20-3.40); Lymphocytes % (auto) 26.8 %; Mean Corpuscular Hemoglobin 27.4 pg (25.0-34.0); Mean Corpuscular Volume 91.3 fL (80.0-100.0); Mean Platelet Volume 10.7 fL (9.4-12.4); Monocytes # (auto) 0.87 K/uL (0.11-0.59); Neutrophils # (auto) 3.95 K/uL (1.40-6.50); Neutrophils % (auto) 54.4 %; Platelet Count 225 K/uL (130-400); RDW Coefficient of Variation 18.9 % (11.5-14.5); RDW Standard Deviation 62.7 fL (36.4-46.3); Red Blood Count 2.63 M/uL (4.20-5.40); White Blood Count 7.25 K/ul (4.8-10.8)
[2023-06-02 07:24] LABS: BUN Creatinine Ratio 26.5 (10-20); Calcium 7.9 mg/dl (8.6-10.3); Creatinine Clr Calc Pharmacy 37.8 ml/min; Est GFR (African American) 76.6 ml/min; Est GFR (Non-African American) 66.1 ml/min; Potassium 4.5 mmol/L (3.5-5.1)
[2023-06-02 07:40] LABS: RBC Morphology Unremarkable
[2023-06-02] MEDS ORDERED: IRON SUCROSE 200 MG in 0.9 % SODIUM CHLORIDE 100 ML IV ONE (08:00)
[2023-06-02] MEDS ORDERED: ERGOCALCIFEROL 50,000 UNITS 1250 MCG CAP PO SCH (09:00)
[2023-06-02] MEDS: ACETAMINOPHEN 500 MG TAB PO SCH ×3 (09:42→22:03)
[2023-06-02] MEDS: PANTOprazole 40 MG TAB PO SCH ×2 (09:44→22:03)
[2023-06-02] MEDS: FLUTICASONE FUROATE 100MCG 14 PUFFS/INHALER INH SCH (09:45)
[2023-06-02] MEDS: UMECLIDINIUM/VILANTEROL 62.5/25MCG 7 PUFFS/INHALER INH SCH (09:48)
[2023-06-02] MEDS: SUCRALFATE 1 GM TAB PO SCH ×2 (09:48→22:03)
[2023-06-02] MEDS: dilTIAZem HCL 240 MG CAPCR PO SCH (09:53)
[2023-06-02] MEDS: dilTIAZem HCL 120 MG CAPCR PO SCH (10:19)
--- NOTE | 2023-06-02 13:58 | Hospitalist Progress Note ---
Date of Service June 02, 2023 Assessment & Plan (1) Fall: Plan: Fall 1/3 Right knee x-ray: No acute bony abnormality CThead: No acute intracranial abnormality X-ray right hand: No acute fracture, osteopenia and arthritic change X-ray left forearm: Impacted fracture of the distal radius and overlying soft tissue edema. CTC-spine: No acute fracture/subluxation X-ray hip/pelvis: no hip fracture pain at radial fracture, pain imroved with scheduled tylenol, elevated ice and prn oxycodone With ambulatory dysfunction, immobilized left hand and limited use of right hand and falls patient is not able to meet independent goals at home at this time. PT/OT/CM consulted for placement evaluation, will eval right hand wounds 06/03 Head wound sutured after greater than 6 hours, increased risk of infection, completed course of Keflex 500 mg p.o. (2) SMAS (superior mesenteric artery syndrome): Plan: History of mesenteric ischemia S/p supraceliac aorta to SMA/celiac coronary bypass 2021 with recurrent chronic mesenteric ischemia. S/p aorto to SMA stent placement and balloon angiogram 05/11/2023, followed in the [place] at [facility] and subsequently progressed with good pain control. Was discharged 05/13/2023. 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 (3) Liver lesion: Plan: Liver lesions Stable and cystic Unlikely to be abscesses, previously discussed with infectious disease 04/2023 No acute change (4) Pulmonary nodules: Plan: Pulmonary nodules Stable, outpatient follow-up (5) Atrial fibrillation: Plan: Atrial fibrillation Eliquis temporarily held due to bleeding and fractures, acute blood loss anemia is noted at this time we will hold Eliquis until we are sure her hemoglobin stabilizes and there is no other surreptitious source of blood loss Continue diltiazem for rate control at this time, needed to reduce dose as BP low 06/02/23 (6) Hyperthyroidism: Plan: Hyperthyroidism Stable, continue methimazole (7) Acute blood loss anemia: Plan: PT with falling hgb, no long bone fractures, did have scalp laceration on eliquis Recheck hemoglobin shows stability checked abd/pelvis cT no intra-abdominal retroperitoneal bleed is seen. Comments of previous SMA surgery are noted Plan DVT prophylaxis: scd add melatonin for sleep Amount of cystitis on CT check urine analysis, urine culture mixed abelino viancaley contaminated CODE STATUS: Full code Admission and Anticipated Discharge Date Admission Date: May 30, 2023 Subjective Patient is in good spirits, with some distress having fractures of her left radius right hand is splinted with laceration repair will evaluation 06/03 to determine if need to keep immobilized She has no abdominal pain denies any melena bleeding has been controlled from her scalp wound Physical Exam Physical Exam: Patient is a splint on her left arm and splints on 2 of her fingers on the right hand although there is no fractures identified on x-ray. she state her left wrist was painful overnight Her head wound has a staple in place hemostasis is achieved She is frail and weak and appearing, but improving daily Cardiac exam is regular lungs are clear abdomen is NABS and soft Results & Data Results & Data Vital Signs (Past 12 Hours) Vital Signs Temp Pulse Resp BP BP Pulse Ox O2 Del Method 06/02/23 10:17 74 16 96/59 L 96 Room Air 06/02/23 08:15 98.4 F 81 16 116/64 96 Room Air Laboratory Results reviewed cbc reviewed chemistry reviewed iron -> ordered iron repletion parenterally as was no po and still very low level PG Care Time/CCT Total # of Minutes Spent Total Time Spent with Patient: Total time spent is greater than 50% in coordination of care (as documented) at patient's floor/unit and/or counseling patient: Coding Level of Care Code 09054 SUB INP/OBS CARE 2/35MIN Diagnoses Fall W19.XXXA Encounter type: initial encounter SMAS (superior mesenteric artery syndrome) K55.1 Liver lesion K76.9 Pulmonary nodules R91.8 Longstanding persistent atrial fibrillation I48.11 Atrial fibrillation type: longstanding persistent Hyperthyroidism E05.90 Acute blood loss anemia D62 (1) Fall Encounter type: initial encounter Qualified Code(s): W19.XXXA - Unspecified fall, initial encounter (5) Atrial fibrillation Atrial fibrillation type: longstanding persistent Qualified Code(s): I48.11 - Longstanding persistent atrial fibrillation
[2023-06-02] MEDS: ATORVASTATIN 10 MG TAB PO SCH (22:03)
[2023-06-02] MEDS: MELATONIN 3 MG TAB PO SCH (22:03)
[2023-06-02] MEDS: LATANOPROST 0.005% OP SOLN 2.5 ML BTL OPB SCH (22:03)
[2023-06-02] MEDS: ENALAPRIL MALEATE 10 MG TAB PO SCH (22:04)
[2023-06-03] MEDS: MoRPHine SULFATE 2 MG/ML CARP IV PRN (00:17)
[2023-06-03] MEDS ORDERED: ONDANSETRON INJ 2 MG/ML 2 ML VIAL IV PRN (02:14)
[2023-06-03] MEDS ORDERED: PROCHLORPERAZINE 5 MG in SYRINGE 4 ML IV ONE (03:30)
[2023-06-03] MEDS: methIMAzole 5 MG TABLET PO SCH (05:48)
[2023-06-03] MEDS: ACETAMINOPHEN 500 MG TAB PO SCH ×3 (09:19→20:15)
[2023-06-03] MEDS: FLUTICASONE FUROATE 100MCG 14 PUFFS/INHALER INH SCH (09:20)
[2023-06-03] MEDS: UMECLIDINIUM/VILANTEROL 62.5/25MCG 7 PUFFS/INHALER INH SCH (09:20)
[2023-06-03] MEDS: PANTOprazole 40 MG TAB PO SCH ×2 (09:21→20:16)
[2023-06-03] MEDS: dilTIAZem HCL 120 MG CAPCR PO SCH (09:21)
[2023-06-03] MEDS: SUCRALFATE 1 GM TAB PO SCH ×2 (09:21→20:17)
--- NOTE | 2023-06-03 14:46 | Hospitalist Progress Note ---
Date of Service June 03, 2023 Assessment & Plan (1) Fall: Plan: Fall 1/3 Right knee x-ray: No acute bony abnormality CThead: No acute intracranial abnormality X-ray right hand: No acute fracture, osteopenia and arthritic change X-ray left forearm: Impacted fracture of the distal radius and overlying soft tissue edema. CTC-spine: No acute fracture/subluxation X-ray hip/pelvis: no hip fracture pain at radial fracture, pain imroved with scheduled tylenol, elevated ice and prn oxycodone will try some hs tramadol With ambulatory dysfunction, immobilized left hand and limited use of right hand and falls patient is not able to meet independent goals at home at this time. PT/OT/CM consulted for placement evaluation, will eval right hand wounds 06/03 Head wound sutured after greater than 6 hours, increased risk of infection, completed course of Keflex 500 mg p.o. (2) SMAS (superior mesenteric artery syndrome): Plan: History of mesenteric ischemia S/p supraceliac aorta to SMA/celiac coronary bypass 2021 with recurrent chronic mesenteric ischemia. S/p aorto to SMA stent placement and balloon angiogram 05/11/2023, followed in the SICU at [facility] [place] and subsequently progressed with good pain control. Was discharged 05/13/2023. 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 (3) Liver lesion: Plan: Liver lesions Stable and cystic Unlikely to be abscesses, previously discussed with infectious disease 04/2023 No acute change (4) Pulmonary nodules: Plan: Pulmonary nodules Stable, outpatient follow-up (5) Atrial fibrillation: Plan: Atrial fibrillation Eliquis temporarily held due to bleeding and fractures, acute blood loss an emia is noted at this time we will hold Eliquis until we are sure her hemoglobin stabilizes and there is no other surreptitious source of blood loss Continue diltiazem for rate control at this time, needed to reduce dose as BP low 06/02/23 (6) Hyperthyroidism: Plan: Hyperthyroidism Stable, continue methimazole (7) Acute blood loss anemia: Plan: PT with falling hgb, no long bone fractures, did have scalp laceration on eliquis Recheck hemoglobin shows stability checked abd/pelvis cT no intra-abdominal retroperitoneal bleed is seen. Comments of previous SMA surgery are noted Plan DVT prophylaxis: scd add melatonin for sleep Amount of cystitis on CT check urine analysis, urine culture mixed abelino likley contaminated CODE STATUS: Full code Admission and Anticipated Discharge Date Admission Date: May 30, 2023 Subjective Patient is in good spirits, with persistent pain on left wrist She has no abdominal pain denies any melena bleeding has been controlled from her scalp wound Physical Exam Physical Exam: right hand was undressed, sutures seen on the distalindex finger, redressed, 4th finger was just bruised cardiac exam is regular lungs are clear Results & Data Results & Data Vital Signs (Past 12 Hours) Vital Signs Temp Pulse Pulse Resp BP Pulse Ox O2 Del Method 06/03/23 11:25 98.4 F 88 18 95/58 L 96 Room Air 06/03/23 07:06 97.5 F L 99 H 18 122/73 96 Room Air PG Care Time/CCT Total # of Minutes Spent Total Time Spent with Patient: Total time spent is greater than 50% in coordination of care (as documented) at patient's floor/unit and/or counseling patient: Coding Level of Care Code 04777 SUB INP/OBS CARE 2/35MIN Diagnoses Fall W19.XXXA Encounter type: initial encounter SMAS (superior mesenteric artery syndrome) K55.1 Liver lesion K76.9 Pulmonary nodules R91.8 Longstanding persistent atrial fibrillation I48.11 Atrial fibrillation type: longstanding persistent Hyperthyroidism E05.90 Acute blood loss anemia D62 (1) Fall Encounter type: initial encounter Qualified Code(s): W19.XXXA - Unspecified fall, initial encounter (5) Atrial fibrillation Atrial fibrillation type: longstanding persistent Qualified Code(s): I48.11 - Longstanding persistent atrial fibrillation
[2023-06-03] MEDS: traMADol HCL 50 MG TABLET PO SCH (20:15)
[2023-06-03] MEDS: MELATONIN 3 MG TAB PO SCH (20:15)
[2023-06-03] MEDS: ATORVASTATIN 10 MG TAB PO SCH (20:16)
[2023-06-03] MEDS: LATANOPROST 0.005% OP SOLN 2.5 ML BTL OPB SCH (20:17)
[2023-06-03] MEDS: ENALAPRIL MALEATE 10 MG TAB PO SCH (20:19)
[2023-06-04] MEDS: methIMAzole 5 MG TABLET PO SCH (05:05)
[2023-06-04] MEDS: ACETAMINOPHEN 500 MG TAB PO SCH ×3 (08:06→20:20)
[2023-06-04] MEDS: SUCRALFATE 1 GM TAB PO SCH ×2 (08:07→20:20)
[2023-06-04] MEDS: FLUTICASONE FUROATE 100MCG 14 PUFFS/INHALER INH SCH (08:07)
[2023-06-04] MEDS: dilTIAZem HCL 120 MG CAPCR PO SCH (08:07)
[2023-06-04] MEDS: PANTOprazole 40 MG TAB PO SCH ×2 (08:07→20:20)
[2023-06-04] MEDS: UMECLIDINIUM/VILANTEROL 62.5/25MCG 7 PUFFS/INHALER INH SCH (08:07)
[2023-06-04] MEDS ORDERED: IRON SUCROSE 200 MG in 0.9 % SODIUM CHLORIDE 100 ML IV ONE (16:13)
--- NOTE | 2023-06-04 16:13 | Hospitalist Progress Note ---
Date of Service June 04, 2023 Assessment & Plan (1) Fall: Plan: Fall 1/3 Right knee x-ray: No acute bony abnormality CThead: No acute intracranial abnormality X-ray right hand: No acute fracture, osteopenia and arthritic change X-ray left forearm: Impacted fracture of the distal radius and overlying soft tissue edema. CTC-spine: No acute fracture/subluxation X-ray hip/pelvis: no hip fracture pain at radial fracture, pain imroved with scheduled tylenol, elevated ice and prn oxycodone will try some hs tramadol With ambulatory dysfunction, immobilized left hand and limited use of right hand and falls patient is not able to meet independent goals at home at this time. PT/OT/CM consulted for placement evaluation, will eval right hand wounds 06/03 Head wound sutured after greater than 6 hours, increased risk of infection, completed course of Keflex 500 mg p.o. (2) SMAS (superior mesenteric artery syndrome): Plan: History of mesenteric ischemia S/p supraceliac aorta to SMA/celiac coronary bypass 2021 with recurrent chronic mesenteric ischemia. S/p aorto to SMA stent placement and balloon angiogram 05/11/2023, followed in the SICU at [facility] [place] and subsequently progressed with good pain control. Was discharged 05/13/2023. 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 (3) Liver lesion: Plan: Liver lesions Stable and cystic Unlikely to be abscesses, previously discussed with infectious disease 04/2023 No acute change (4) Pulmonary nodules: Plan: Pulmonary nodules Stable, outpatient follow-up (5) Atrial fibrillation: Plan: Atrial fibrillation Eliquis temporarily held due to bleeding and fractures, acute blood loss an emia is noted at this time we will hold Eliquis until we are sure her hemoglobin stabilizes and there is no other surreptitious source of blood loss Continue diltiazem for rate control at this time, needed to reduce dose as BP low 06/02/23 (6) Hyperthyroidism: Plan: Hyperthyroidism Stable, continue methimazole (7) Acute blood loss anemia: Plan: PT with falling hgb, no long bone fractures, did have scalp laceration on eliquis Recheck hemoglobin shows stability checked abd/pelvis cT no intra-abdominal retroperitoneal bleed is seen. Comments of previous SMA surgery are noted Iron level checked and patient found to have iron deficiency anemia on top of acute blood loss anemia given a dose of Venna fair on the seventh will give another dose of Venofer on the ninth Plan DVT prophylaxis: scd add melatonin for sleep Amount of cystitis on CT check urine analysis, urine culture mixed abelino likley contaminated CODE STATUS: Full code Admission and Anticipated Discharge Date Admission Date: May 30, 2023 Subjective Patient is in good spirits, with persistent pain on left wrist, improved with tramadol She has no abdominal pain denies any melena bleeding has been controlled from her scalp wound right hand fingers are improving with function Physical Exam Physical Exam: right hand was redressed, 4th finger was just bruised cardiac exam is regular lungs are clear Results & Data Results & Data Vital Signs (Past 12 Hours) Vital Signs Temp Pulse Resp BP Pulse Ox O2 Del Method 06/04/23 13:57 98.4 F 63 16 112/50 L 96 Room Air 06/04/23 07:49 97.7 F 83 16 143/79 H 95 Room Air Laboratory Results Ordered CBC and chemistry for the PG Care Time/CCT Total # of Minutes Spent Total Time Spent with Patient: Total time spent is greater than 50% in coordination of care (as documented) at patient's floor/unit and/or counseling patient: Coding Level of Care Code 84380 SUB INP/OBS CARE 235MIN Diagnoses Fall W19.XXXA Encounter type: initial encounter SMAS (superior mesenteric artery syndrome) K55.1 Liver lesion K76.9 Pulmonary nodules R91.8 Longstanding persistent atrial fibrillation I48.11 Atrial fibrillation type: longstanding persistent Hyperthyroidism E05.90 Acute blood loss anemia D62 (1) Fall Encounter type: initial encounter Qualified Code(s): W19.XXXA - Unspecified fall, initial encounter (5) Atrial fibrillation Atrial fibrillation type: longstanding persistent Qualified Code(s): I48.11 - Longstanding persistent atrial fibrillation
[2023-06-04] MEDS: ENALAPRIL MALEATE 10 MG TAB PO SCH (20:20)
[2023-06-04] MEDS: traMADol HCL 50 MG TABLET PO SCH (20:20)
[2023-06-04] MEDS: ATORVASTATIN 10 MG TAB PO SCH (20:20)
[2023-06-04] MEDS: MELATONIN 3 MG TAB PO SCH (20:20)
[2023-06-04] MEDS: LATANOPROST 0.005% OP SOLN 2.5 ML BTL OPB SCH (20:21)
[2023-06-05] MEDS: methIMAzole 5 MG TABLET PO SCH (05:34)
[2023-06-05 07:57] LABS: Hemoglobin 8.2 g/dl (12.0-16.0); Mean Corpuscular Hemoglobin 27.6 pg (25.0-34.0); Mean Corpuscular Hgb Conc 30.4 g/dL (32.0-36.0); Mean Corpuscular Volume 90.9 fL (80.0-100.0); Mean Platelet Volume 10.3 fL (9.4-12.4); Platelet Count 264 K/uL (130-400); RDW Coefficient of Variation 19.7 % (11.5-14.5); RDW Standard Deviation 64.5 fL (36.4-46.3); Red Blood Count 2.97 M/uL (4.20-5.40); White Blood Count 6.57 K/ul (4.8-10.8)
[2023-06-05 08:13] LABS: Calcium 8.5 mg/dl (8.6-10.3); Creatinine Clr Calc Pharmacy 49.8 ml/min; Est GFR (African American) 97.5 ml/min; Est GFR (Non-African American) 84.1 ml/min; Potassium 4.4 mmol/L (3.5-5.1)
[2023-06-05] MEDS ORDERED: FERROUS SULFATE 325 MG TAB PO SCH (09:00)
[2023-06-05] MEDS: dilTIAZem HCL 120 MG CAPCR PO SCH (09:29)
[2023-06-05] MEDS: ACETAMINOPHEN 500 MG TAB PO SCH ×3 (09:29→20:38)
[2023-06-05] MEDS: FLUTICASONE FUROATE 100MCG 14 PUFFS/INHALER INH SCH (09:31)
[2023-06-05] MEDS: PANTOprazole 40 MG TAB PO SCH ×2 (09:31→20:38)
[2023-06-05] MEDS: SUCRALFATE 1 GM TAB PO SCH ×2 (09:32→20:38)
[2023-06-05] MEDS: UMECLIDINIUM/VILANTEROL 62.5/25MCG 7 PUFFS/INHALER INH SCH (09:32)
--- NOTE | 2023-06-05 15:28 | Hospitalist Progress Note ---
Date of Service June 05, 2023 Assessment & Plan (1) Fall: Plan: Fall 1/3 Right knee x-ray: No acute bony abnormality CThead: No acute intracranial abnormality X-ray right hand: No acute fracture, osteopenia and arthritic change X-ray left forearm: Impacted fracture of the distal radius and overlying soft tissue edema. CTC-spine: No acute fracture/subluxation X-ray hip/pelvis: no hip fracture pain at radial fracture, pain imroved with scheduled tylenol, elevated ice and hs tramadol With ambulatory dysfunction, immobilized left hand and limited use of right hand and falls patient is not able to meet independent goals at home at this time. PT/OT/CM consulted for placement evaluation, will eval right hand wounds 06/03 Head wound sutured after greater than 6 hours, increased risk of infection, completed course of Keflex 500 mg p.o. head wound sutures removed 06/09/23 finger sutures removed 06/05/23 (2) SMAS (superior mesenteric artery syndrome): Plan: History of mesenteric ischemia S/p supraceliac aorta to SMA/celiac coronary bypass 2021 with recurrent chronic mesenteric ischemia. S/p aorto to SMA stent placement and balloon angiogram 05/11/2023, followed in the SICU at [facility] [place] and subsequently progressed with good pain control. Was discharged 05/13/2023. 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 (3) Liver lesion: Plan: Liver lesions Stable and cystic Unlikely to be abscesses, previously discussed with infectious disease 04/2023 No acute change (4) Pulmonary nodules: Plan: Pulmonary nodules Stable, outpatient follow-up (5) Atrial fibrillation: Plan: Atrial fibrillation Eliquis temporarily held due to bleeding and fractures, acute blood loss anemia is noted at this time restart eliquis in pm of 06/05/23 Continue diltiazem for rate control at this time, needed to reduce dose as BP low 06/02/23 (6) Hyperthyroidism: Plan: Hyperthyroidism Stable, continue methimazole (7) Acute blood loss anemia: Plan: PT with falling hgb, no long bone fractures, did have scalp laceration on eliquis Recheck hemoglobin shows stability checked abd/pelvis cT no intra-abdominal retroperitoneal bleed is seen. Comments of previous SMA surgery are noted Iron level checked and patient found to have iron deficiency anemia on top of acute blood loss anemia given a dose of venofer 06/02 then resume oral iron q 48 Plan DVT prophylaxis: scd add melatonin for sleep Amount of cystitis on CT check urine analysis, urine culture mixed abelino likley contaminated CODE STATUS: Full code Admission and Anticipated Discharge Date Admission Date: May 30, 2023 Subjective pt is in good spirits, looking to transition to home as is moving well in PT sutures inspected in right finger and removed sutures in scalp to be eval on 06/09 or so for removal Physical Exam Physical Exam: Pt awake and alert lungs are clear cardiac is regular abd is soft and non tender head wound in sutured and intact Results & Data Results & Data Vital Signs (Past 12 Hours) Vital Signs Temp Pulse Pulse Resp BP BP Pulse Ox 06/05/23 13:12 97.3 F L 87 16 96/44 L 100 06/05/23 08:10 97.7 F 77 16 101/63 97 O2 Del Method 06/05/23 13:12 Room Air 06/05/23 08:10 Room Air PG Care Time/CCT Total # of Minutes Spent Total Time Spent with Patient: Total time spent is greater than 50% in coordination of care (as documented) at patient's floor/unit and/or counseling patient: Coding Level of Care Code 98661 SUB INP/OBS CARE 235MIN Diagnoses Fall W19.XXXA Encounter type: initial encounter SMAS (superior mesenteric artery syndrome) K55.1 Liver lesion K76.9 Pulmonary nodules R91.8 Longstanding persistent atrial fibrillation I48.11 Atrial fibrillation type: longstanding persistent Hyperthyroidism E05.90 Acute blood loss anemia D62 (1) Fall Encounter type: initial encounter Qualified Code(s): W19.XXXA - Unspecified fall, initial encounter (5) Atrial fibrillation Atrial fibrillation type: longstanding persistent Qualified Code(s): I48.11 - Longstanding persistent atrial fibrillation
[2023-06-05] MEDS: MELATONIN 3 MG TAB PO SCH (20:38)
[2023-06-05] MEDS: ATORVASTATIN 10 MG TAB PO SCH (20:38)
[2023-06-05] MEDS: LATANOPROST 0.005% OP SOLN 2.5 ML BTL OPB SCH (20:39)
[2023-06-05] MEDS: traMADol HCL 50 MG TABLET PO SCH (20:52)
[2023-06-05] MEDS: APIXABAN 2.5 MG TAB PO SCH (20:53)
[2023-06-05] MEDS: ENALAPRIL MALEATE 10 MG TAB PO SCH (20:54)
[2023-06-06] MEDS: methIMAzole 5 MG TABLET PO SCH (06:02)
[2023-06-06] MEDS: ACETAMINOPHEN 500 MG TAB PO SCH (09:21)
[2023-06-06] MEDS: APIXABAN 2.5 MG TAB PO SCH (09:22)
[2023-06-06] MEDS: dilTIAZem HCL 120 MG CAPCR PO SCH (09:22)
[2023-06-06] MEDS: FLUTICASONE FUROATE 100MCG 14 PUFFS/INHALER INH SCH (09:23)
[2023-06-06] MEDS: SUCRALFATE 1 GM TAB PO SCH (09:23)
[2023-06-06] MEDS: PANTOprazole 40 MG TAB PO SCH (09:23)
[2023-06-06] MEDS: UMECLIDINIUM/VILANTEROL 62.5/25MCG 7 PUFFS/INHALER INH SCH (09:24)
--- NOTE | 2023-06-06 14:41 | Discharge Summary ---
Date of Service June 06, 2023 Admission HPI Per Admitting Provider with past medical history of atrial fibrillation on Eliquis, liver lesions stable and cystic on prior evals with very low likelihood for abscess and discussed with infectious disease at previous admission 05/10, stable pulmonary nodules, COPD, and hypothyroidism who fell yesterday and was seen in the ER. Following this she had reassuring imaging studies, head wound was reapproximated with romy and patient was discharged home. Unfortunately she returned home and her head wound continued to bleed soaking multiple dressings overnight. She Memo presented today, sutures were removed, and head wound was reapproximated with 6 sutures to be removed in 10 days. No further bleeding. Despite significant bleeding her hemoglobin actually increased, although patient with poor p.o. intake and slightly volume contracted. No further bleeding following suture reapproximation. She did have review of her x-rays and was noted to have a left wrist fracture was splinted and pending Ortho-Glass. She also has 2 ri ght hand sutures with wraps and right hip pain although no fracture of the right hip. Due to her living alone, being anticoagulated, and now wi without use of her left hand due to fracture and right hand with suture/wraps and limited with pain she is not felt to be safe for return home at this time. She is recommended for PT/OT and placement evaluation. This was discussed with patient's family by the ER provider, patient is willing to look for placement alternatives although does note a poor experience with rehab in the past. She is seen at the bedside. She reports that her fall was purely mechanical, she slipped taking out the garbage and missed a step which caused her to fall. She did not have and continues to not have any chest pain, chest pressure, shortness of breath, lightheadedness, dizziness. Denies syncope/presyncope. No nausea/vomiting/abdominal pain. No diarrhea. She notes her right hip is sore but she is able to flex and extend her hip with good range of motion and is able to laterally abduct the hip without significant pain. She notes that she does have some discomfort in her left wrist which is improved with her splint. Medical History: Reviewed Medications: Reviewed Surgical History: Reviewed Family history: Reviewed Allergies: Reviewed Social History: Former tobacco/alcohol use no recent use Code Status: Full code. Principal Diagnosis acute blood loss anemia from head wound mechanical falls with injury weakness Discharge Exam pt is awake and appropriate, right hand is more mobile, sutured area is clean and dry scalp with sutures also clean and dry neurologically intact, Discharge Data Allergies Allergy/AdvReac Type Severity Reaction Status Date / Time No Known Drug Allergies Allergy . Verified 05/29/23 20:25 adhesive tape AdvReac Intermediate PULLS SKIN Verified 05/29/23 20:25 OFF Consultations 05/30/23 13:35 ED Decision to Admit Stat Ordered Studies 05/31/23 07:29 CT Abd and Pelvis [CT abd pelvis oral and IV con] Routine Hospital Course (1) Fall: Fall 05/29 Right knee x-ray: No acute bony abnormality CThead: No acute intracranial abnormality X-ray right hand: No acute fracture, osteopenia and arthritic change X-ray left forearm: Impacted fracture of the distal radius and overlying soft tissue edema. CTC-spine: No acute fracture/subluxation X-ray hip/pelvis: no hip fracture pain at radial fracture, pain imroved with scheduled tylenol, elevated ice and hs tramadol With ambulatory dysfunction, immobilized left hand and limited use of right hand and falls patient is not able to meet independent goals at home at this time. PT/OT/CM consulted for placement evaluation, will eval right hand wounds 06/03 Head wound sutured after greater than 6 hours, increased risk of infection, completed course of Keflex 500 mg p.o. 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 S/p aorto to SMA stent placement and balloon angiogram 05/11/2023, followed in the SICU at [facility] and subsequently progressed with good pain control. Was discharged 05/13/2023. 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 (3) Liver lesion: Liver lesions Stable and cystic Unlikely to be abscesses, previously discussed with infectious disease 04/2023 No acute change (4) Pulmonary nodules: Pulmonary nodules Stable, outpatient follow-up (5) Atrial fibrillation: Atrial fibrillation Eliquis temporarily held due to bleeding and fractures, acute blood loss anemia is noted at this time restart eliquis in pm of 06/05/23 Continue diltiazem for rate control , dose reduced due to lower blood pressure this was communicated to daughter rodrigo (6) Hyperthyroidism: Hyperthyroidism Stable, continue methimazole (7) Acute blood loss anemia: PT with falling hgb, no long bone fractures, did have scalp laceration on eliquis Recheck hemoglobin shows stability checked abd/pelvis cT no intra-abdominal retroperitoneal bleed is seen. Comments of previous SMA surgery are noted Iron level checked and patient found to have iron deficiency anemia on top of acute blood loss anemia given a dose of venofer 06/02 then resume oral iron q 48 Plan CODE STATUS: Full code Total Time Total Time Spent Total Time Spent (In Minutes): it required greater than 30 minutes to complete this process Discharge Plan Discharge Items Patient Disposition: Home - Self-Care Reason For Visit: FALLS, AMBULATORY DYSFUNCTION, PLACEMENT Discharge Diagnosis: acute blood loss anemia from head wound mechanical falls with injury weakness Condition on Discharge: Good Activity: Per Instructions section Activity Comment: Home Physical therapy Non-emergency contact: Primary Care Provider Call non-emergency contact if: your symptoms worsen Follow-up/Referrals: Carlton Mendez III, CRNP [Primary Care Provider] - 06/18/23 9:20 am Diet: Regular Addtl Attending Provider Instructions: please have your scalp stitches taken out next week at your follow up appointment please take a multiple vitamin and an iron supplement, the iron supplement should be every other day Pending Studies at Discharge: No Stand-Alone Forms: My [employer], Smoking Cessation Medications and DC Order Prescriptions: New tramadol 50 mg Tablet 50 mg PO BID PRN (Reason: pain) Qty: 20 0RF ferrous sulfate 325 mg (65 mg iron) Tablet,Delayed Release (Dr/Ec) 325 mg PO Q48H Qty: 30 2RF diltiazem HCl 120 mg capsule,extended release 24 hr 120 mg PO DAILY Qty: 30 5RF Continued ipratropium-albuterol 0.5 mg-3 mg(2.5 mg base)/3 mL solution for nebulization 3 ml inhalation BID PRN (Reason: shortness of breath or wheezing) Qty: 15 1RF Rx Instructions: INHALE 3 ML INHALATION TWICE A DAY NEEDED FOR SHORTNESS OF BREATH OR WHEEZING methimazole 5 mg tablet 5 mg PO DAILYBB Qty: 90 1RF sucralfate [Carafate] 1 gram tablet 1 g PO BID Qty: 180 3RF Rx Instructions: mix one tablet with 15mls of water to make slurry then drink twice a day. benazepril 20 mg tablet 40 mg PO QPM Qty: 180 3RF apixaban 2.5 mg tablet 2.5 mg PO BID Patient Comments: CONFIRMED ON [facility] DC SUMMARY AND W/ PT'S DAUGHTER 05/14 acetaminophen 325 mg tablet 650 mg PO Q8H PRN (Reason: pain) atorvastatin 10 mg tablet 10 mg PO QPM albuterol sulfate [Ventolin HFA] 90 mcg/actuation HFA aerosol inhaler 2 puff INHALATION QID PRN (Reason: Shortness Of Breath Or Wheezing) Qty: 8.5 1RF latanoprost [Xalatan] 0.005 % drops 1 drp OPB HS Anoro Ellipta 62.5-25 mcg/actuation Blister With Device 1 inh inhalation DAILY Qty: 0 0RF ergocalciferol (vitamin D2) 1,250 mcg (50,000 unit) capsule 1,250 mcg PO WK Rx Instructions: saturday Trelegy Ellipta 100-62.5-25 mcg blister with device 1 inh inhalation UD Rx Instructions: to start after anoro finished pantoprazole 40 mg tablet,delayed release (DR/EC) 40 mg PO BID Discontinued diltiazem HCl 240 mg capsule,extended release 24hr 240 mg PO QAM Patient Comments: CONFIRMED ON [facility] DC SUMMARY AND W/ PT'S DAUGHTER 05/14. Discharge Orders: Discharge Order (Routine); Ordered 06/06/23 Ordered By: Octavio Roberts/Other Patient Handouts: Leg or Arm Fracture, How Bones Heal Admission Data Admit Date/Time: 05/30/23 14:10 Attending Provider: Corwin Elise Admit Provider: Corwin Elise Primary Care Provider: Carlton Mendez III Other Providers: Corwin Elise; [facility] Other Interventions: Discharge Summary Assessment (RN) Last Done: 06/06/23 11:21 Coding Level of Care Code 86239 INP/OBS DISCH >30 MIN Diagnoses Fall W19.XXXA Encounter type: initial encounter SMAS (superior mesenteric artery syndrome) K55.1 Liver lesion K76.9 Pulmonary nodules R91.8 Longstanding persistent atrial fibrillation I48.11 Atrial fibrillation type: longstanding persistent Hyperthyroidism E05.90 Acute blood loss anemia D62
== END 2023-06-06 12:58 | disposition home or self-care (01) | DRG 605 ==
LOC: ED 09:42 → EDINP 14:10 → 3W 16:15

== ENCOUNTER 2023-10-14 00:06 | Inpatient (IN) ==
--- OUTSIDE RECORDS SUMMARY | 2023-10-14 00:11 | External Medical Summary | Continuity of Care Document ---
Author Name Unknown Organization [address] Address [address] [place], [place] [id number] Care Team Providers Care Neonatal Specialist Name Role Phone Carlton Mendez Primary Care Physician [phone] [id number] Date(s): 10/10/23 - 10/10/23 [facility] [address], [address] [place] [address] [phone] Discharge Disposition: Home or Self Care Attending Physician: MD Coe Tarik Z Referring Physician: MD Coe Tarik Z Allergies, Adverse Reactions, Alerts No Known Allergies Medications Albuterol (Eqv-ProAir HFA) 90 mcg/inh inhalation aerosol Start: 03/05/22 1:53:00 PM EDT, 2 puff, inhaled, q6h, PRN: shortness of breath Start Date: 03/05/22 Status: Ordered albuterol-ipratropium 2.5 mg-0.5 mg/3 mL inhalation solution USE 1 VIAL VIA NEBULIZER TWICE DAILY NEEDED FOR SHORTNESS OF BREATH OR WHEEZING Start Date: 03/05/22 Status: Ordered Aspir 81 oral delayed release tablet Start: 07/17/23 4:38:00 PM EST, 1 tab, PO, Daily Start Date: 07/17/23 Status: Ordered atorvastatin 10 mg oral tablet Start: 03/05/22 1:53:00 PM EDT, 1 tab, PO, qhs Start Date: 03/05/22 Status: Ordered benazepril Start: 05/02/22 10:08:00 AM EST, 40 mg =, PO, qPM Start Date: 05/02/22 Status: Ordered DilTIAZem (Eqv-Cardizem CD) 240 mg/24 hours oral capsule, extended release 1 cap, PO, qAM Start Date: 03/05/22 Status: Ordered Eliquis 2.5 mg oral tablet Start: 05/13/23 8:27:00 AM EST, 1 tab, PO, bid, Disp# 60 tab, Refills: 3, TAKE 1 TABLET BY MOUTH TWICE A DAY, Pharmacy: [facility] [place] Start Date: 05/13/23 Status: Ordered latanoprost 0.005% ophthalmic solution Start: 03/05/22 1:53:00 PM EDT, 1 drop, both eyes, qhs Start Date: 03/05/22 Status: Ordered methIMAzole 5 mg oral tablet 1 tab, PO, qAM Start Date: 03/05/22 Status: Ordered pantoprazole 40 mg oral delayed release tablet Start: 03/05/22 1:53:00 PM EDT, 1 tab, PO, bid Start Date: 03/05/22 Status: Ordered Trelegy Ellipta 100 mcg-62.5 mcg-25 mcg/inh inhalation powder Start: 05/02/22 10:10:00 AM EST, See Instructions, 2 puff inhaled Daily Start Date: 05/02/22 Status: Ordered Tylenol 325 mg oral tablet Start: 05/13/23 8:17:00 AM EST, 2 tab, PO, q8h, Disp# 24 tab, Refills: 0, Tkae 2 tablets only if needed for pain every 8 hours. not to exceed 4000 mg/day, PRN: pain - mild (1-3), Pharmacy: [facility]/pharmacy #[id number] Start Date: 05/13/23 Status: Ordered Problem List Condition Confirmation Course Effective Dates Status H ealt Status Informant Chronic mesenteric ischemia Confirmed Active Hyperthyroidism Confirmed Active Radial artery injury Confirmed Active Superior mesenteric artery stenosis Confirmed Active Procedures Procedure Date Related Diagnosis Body Site Status Tongue cancer removed 2021 Com pleted Appendectomy Completed Colonoscope Completed Hysterectomy Completed Results Radiology Reports * Exam Date Time Procedure Performing Provider Status 10/10/23 11:41 AM VL Art/Vein Abd/Pelvis/Scrotal Comple Holly Reese; Final Notes: (VL Art/Vein Abd/Pelvis/Scrotal Complete) Reason For Exam: follow up s/p sma stent VL Art/Vein Abd/Pelvis/Scrotal Complete [facility] FINAL REPORT Name: LOGAN MARCELINO : 1940 Visit: [id number] Date: 10 Oct 2023 TYPE OF TEST: Visceral Arterial Duplex REASON FOR TEST Ao-CeliacA/SMA bifurcated bypass graft; Known celiac limb occlusion; Stented SMA limb INTERPRETATION/FINDINGS Duplex imaging performed of the mesenteric vasculature: 1. 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 The SMA limb of the bypass graft is patent with a widely patent stent in the proximal portion of the graft limb. Increased velocities insonated distal to the stent in the mid graft (345 cm/s) of uncertain hemodynamic significance. Limited grayscale imaging in this area. Lumen narrowing is appreciated with color Doppler imaging. 2. The outflow mid superior mesenteric artery measures 11.0 mm x 10.9 mm. 3. >50% stenosis of the origin of the inferior mesenteric artery. 4. The distal hepatic and distal splenic arteries are patent with delayed uptrokes noted. 5. The splenic and superior mesenteric veins are patent without evidence of thrombosis. Compared to the previous study performed 07/12/2023, there is no change. IMPRESSION/COMMENTS I have personally reviewed the data relevant to the interpretation of this study. TECHNOLOGIST: Holly FRANCISCO, RD, RVT PHYSICIAN: Harish Limon MD Signed: 10/10/2023 03:26 PM Final Dictated by:MD Limon Aditya Dictated DT/TM:10/10/2023 3:26 Signed by:MD Limon Aditya Signed (Electronic Signature):10/10/2023 3:26 p Transcribed by: Social History Social History Type Response Smoking Status Never smoked cigaret obinna Sex Female Implantable Device List Procedure Provider Procedure Date Device Type Site Unknown Unknown 05/11/23 Unknown Unknown Device Identifier Serial Number Lot or Batch Number Manufacturing Date Expiration Date Distinct Identification Code MRI Safety Implantable Status Assigning Authority Unknown Unknown n/a Unknown 12/20/25 Unknown Unknown Active Unkn own Unknown Unknown [id number] Unknown 07/31/26 Unknown Unknown Active Unknown Unknown Unknown [id number] Unknown 07/31/26 Unknown Unknown Active Unknown Procedure Provider Procedure Date Device Type Site Unknown Unknown 06/13/22 Unknown Unknown Device Identifier Serial Number Lot or Batch Number Manufacturing Date Expiration Date Distinct Identification Code MRI Safety Implantable Status Assigning Authority Unknown Unknown [id number] Unknown 11/23/25 Unknown Unknown Active Unkn own Patient Care team information Care Team Personnel Name: LUIZ Maldonado Terra L Position: Nurse Pract - Vascular Surg Member Role: Lifetime Relationship Address: Address: [address] [place] [address] [place] Name: LUIZ Mendez Lester C Position: Referring Member Role: Primary Care Provider Address: Address: [address] [place] [id number] [place] Name: SARA Horvath Lynn Position: Physician Mixer Machine Feeder Exempt - Vasc Surg Member Role: Lifetime Relationship Address: Address: [address] [place] [address] [place] Name: Maye Reyes Ashley Position: Pharmacist Schedule II Member Role: Pharmacy - Lifetime Name: Maye Hester Kyle Position: Pharmacist Member Role: Pharmacy - Lifetime Address: Address: [address] [place] [id number] [place] Care Team Related Persons Name: HOUSTON ANDERSON
[2023-10-14] MEDS: ONDANSETRON INJ 2 MG/ML 2 ML VIAL IV STA ×2 (00:35→01:06)
[2023-10-14 01:02] LABS: Albumin Globulin Ratio 1.2 (0.9-2); Albumin Level 4.1 gm/dl (3.4-5.0); BUN Creatinine Ratio 24.7 (10-20); Bilirubin,Total 0.3 mg/dl (0.2-1.0); Calcium 9.4 mg/dl (8.6-10.3); Creatinine Clr Calc Pharmacy 34.1 ml/min; Est GFR (African American) 66.8 ml/min; Est GFR (Non-African American) 57.6 ml/min; Globulin 3.5 gm/dl (2.5-4.0); Potassium 4.7 mmol/L (3.5-5.1); Total Protein 7.6 gm/dl (6.0-8.3)
[2023-10-14 01:08] LABS: Basophils # (auto) 0.06 K/uL (0.00-0.20); Basophils % (auto) 0.3 %; Eosinophils # (auto) 0.18 K/uL (0.00-0.50); Eosinophils % (auto) 0.9 %; Hematocrit (blood only) 39.3 % (37.0-47.0); Hemoglobin 11.3 g/dl (12.0-16.0); Immature Granulocytes # (auto) 0.11 K/uL (0.01-0.20); Immature Granulocytes % (auto) 0.6 %; Lymphocytes # (auto) 2.69 K/uL (1.20-3.40); Mean Corpuscular Hemoglobin 27.4 pg (25.0-34.0); Mean Corpuscular Hgb Conc 28.8 g/dL (32.0-36.0); Mean Corpuscular Volume 95.4 fL (80.0-100.0); Monocytes # (auto) 0.77 K/uL (0.11-0.59); Neutrophils # (auto) 15.46 K/uL (1.40-6.50); Neutrophils % (auto) 80.2 %; Platelet Count 356 K/uL (130-400); RDW Coefficient of Variation 16.9 % (11.5-14.5); RDW Standard Deviation 58.9 fL (36.4-46.3); Red Blood Count 4.12 M/uL (4.20-5.40); White Blood Count 19.27 K/ul (4.8-10.8)
[2023-10-14] MEDS: SODIUM CHLORIDE 0.9% 1,000 ML IV ONE (01:09)
[2023-10-14] MEDS: HYDROmorphone INJ 0.5 MG/0.5 ML SYR IV STA ×2 (01:13→02:52)
--- NOTE | 2023-10-14 01:17 | Emergency Department Note ---
Impression & Plan Abdominal pain, acute, epigastric admit to the [facility] ED Provider Note NAME: LOGAN MARCELINO AGE: 83 SEX: Female INFORMANT: Patient ED PROVIDER(S): Brittaney Ventura DO CHIEF COMPLAINT: Epigastric abdominal pain, diarrhea, nausea/vomiting PLAN: Disposition: admit to the [facility] MEDICAL DECISION MAKING: This is an 83-year-old female patient with history of SMA/celiac blockages who presents to the emergency department with epigastric abdominal pain, profuse diarrhea and nausea/vomiting. Patient had eaten a salad for dinner and around 9 PM this evening developed significant diarrhea and epigastric abdominal pain. She has since developed moderate nausea and then started to vomit here in the emergency department. By history, the patient has had SMA stenting for blockage. She has had reocclusion of the SMA/celiac with revision of the stents at [place]. she underwent ultrasound the stents on 10/09 to check the patency. This was felt to be normal and patent at that time. She presents here tonight with epigastric abdominal pain And diarrhea. Patient was treated with IV analgesia. She went for CT scan of the abdomen/pelvis with contrast which shows stent occlusion but collaterals are present. Laboratory studies revealed moderate leukocytosis with a white count of 19.2. H&H were stable. Glucose was 157. Lipase is slightly elevated at 87. Stool bio fire was obtained and found to be unremarkable. Patient's pain was managed with IV Dilaudid and nausea was managed with IV Zofran. I discussed the case with the [facility] and they will evaluate for further inpatient care. Care/management discussed with: The patient, her daughter, manager of training, and the [facility] Triage Nursing notes: reviewed and agree with them. Vital Signs: reviewed and remarkable for hypertension and tachycardia Additional History obtained from: Family members at the bedside Chronic Medical/Social Conditions affecting care: Severe vascular disease in the abdomen with SMA/celiac stenting Prior/ Outside/ External records reviewed: Previous vascular notes and CT scans Obtaining recent follow-up ultrasound of the vasculature of the abdomen after revision of stents - 10/10/2023 Differential Diagnosis: Recurrent vascular blockage, SMA syndrome, small bowel obstruction, foodborne illness Diagnostics, independently interpreted by me: ECG: A-fib with RVR at 107. There is no ST segment elevation or signs of ischemia Cardiac Monitoring: A-fib with RVR at 104 Imaging studies: CT scan of the abdomen/pelvis: As per stat rad HPI: 83 year old Female arrives for evaluation of epigastric abdominal pain, diarrhea and nausea/vomiting. patient had fairly sudden onset of diarrhea this evening. She then became nauseated and had epigastric abdominal pain. Patient ate normally this afternoon at [facility]. She had steak, sweet potato and green beans. She had a salad for dinner and shortly thereafter began to develop some diarrhea and epigastric abdominal pain associated with some nausea. PAST MEDICAL HISTORY: See Below, PAST SURGICAL HISTORY: See Below, SOCIAL HISTORY: See Below, HOME MEDICATIONS: See list ALLERGIES: tape VITALS: See Below PHYSICAL EXAMINATION: HEENT: Head - normocephalic and atraumatic. Pupils are equal, round, and reactive to light. Extraocular eye muscles are intact, and sclera are anicteric. Nose - moist nasal mucosa without discharge. Mouth - moist buccal mucosa. Oropharynx is nonerythematous and there is no tonsillar exudate or edema noted. Neck: Supple; no JVD Or cervical lymphadenopathy Heart: Tachycardic rate with an Irregularly irregular rhythm. There is a normal S1 and S2 with no murmurs, clicks, or gallops appreciated. Lungs: Clear to auscultation bilaterally with no wheezes, rales, or rhonchi. Abdomen: Soft, moderate tenderness to palpation in the epigastrium. There are hypoactive bowel sounds. There are no palpable pulsatile masses or hepatosplenomegaly. There is no guarding, rigidity, or rebound noted. Extremities: No evidence of cyanosis, clubbing, or edema. There are easily palpable peripheral pulses. Skin: warm and dry with good turgor and no rashes. Emergency department course: The patient was evaluated in room B-6. A complete history and physical was performed. A twelve-lead EKG were obtained. An order was placed for continuous cardiac monitoring. The patient was in A-fib with a rapid ventricular response at a rate of 104. A stool specimen was collected. Patient was medicated with IV Dilaudid and IV Zofran. An obstruction series was performed. The patient went for CT scan of the abdomen/pelvis. Upon returning from radiology, she was still having moderate discomfort and was given a second dose of IV Dilaudid and Zofran. I discussed the case with the [facility] Hospitalist and they will evaluate for further management. 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 Pat HLD (hyperlipidemia) Medical History Iron deficiency anemia Hx of falling Hx-TIA (transient ischemic attack) Hx of tongue cancer History of vocal cord paralysis History of COVID-19 (~2022) Hx of transfusion of packed red blood cells (~08/21/23) Hx of fracture of wrist (~04/2023) Closed left hip fracture (07/26/22) Hyperthyroidism LPRD (laryngopharyngeal reflux disease) Liver lesion Aspiration pneumonitis Chronic renal failure (CRF), stage 3b Hypertension Osteoporosis Multiple pulmonary nodules determined by computed tomography of lung Chronic obstructive pulmonary disease SMAS (superior mesenteric artery syndrome) COHN (dyspnea on exertion) Atrial fibrillation HLD (hyperlipidemia) Adrenal nodule Acid reflux Glaucoma History of uterine cancer Surgical History Hx of colonoscopy with polypectomy Hx of abdominal surgery Hx of bilateral cataract extraction S/P cholecystectomy History of anesthesia reaction History of esophagogastroduodenoscopy (EGD) History of total abdominal hysterectomy and bilateral salpingo-oophorectomy History of cardioversion Family History Daughter Breast cancer Mother Cancer Uterine cancer Father Heart disease Sister Family history of diabetes mellitus Brother Family history of diabetes mellitus Aunt Family history of diabetes mellitus Aunt Family history of diabetes mellitus Other Family history non-contributory Hypertension No family history of adverse response to anesthesia Denies family history of Colon cancer Ovarian cancer Prostate cancer Myocardial infarction Social History Smoking Status: Former smoker Tobacco Type: Cigarettes Age Started Using Tobacco: 18; Age Quit Using Tobacco: 52; packs per day: 1; Cigarettes Per Day: quit 22 years ago 1/2 PPD; Second Hand Exposure: No; Do You Dip or Chew Tobacco: No; Hx Alcohol Use: No Hx Substance Use: No Preferred Language: Kuwaiti Communication Ability: Effective Visual Impairment: Partially Limited Hearing Ability: Normal Vice President Planning Required: No Beliefs That Will Affect Care: None marital status: / Current Living Situation: Alone current occupational status: retired How many Children do You have: 3 Feels Safe at Home: Yes Childhood Exposure to Second-Hand Smoke: Yes Diet: regular Diet Comment: regular caffeine: Yes during the past year weight has: remained stable Dental Care, Regularly: No Physical Activity Frequency: 3-4 Times per Week Seatbelt Use: always Sunscreen Use: No Assistive Devices: Denture - Upper, Denture - Lower, Glasses and Walker Allergies Allergies Allergy/AdvReac Type Severity Reaction Status Date / Time adhesive tape AdvReac Intermediate PULLS SKIN Verified 09/25/23 16:33 OFF Home Meds Home Medications Medication Instructions Recorded Confirmed latanoprost 0.005 % eye drops 1 drp OPB HS 11/20/18 10/14/23 (Xalatan) fluticasone fur. 100 mcg-umeclid 1 inh inhalation QAM 05/29/23 10/14/23 62.5 mcg-vilant 25 mcg inhalat.powder (Trelegy Ellipta) aspirin 81 mg tablet,delayed 81 mg PO QPM 08/21/23 10/14/23 release budesonide-formoterol HFA 160 2 puff inhalation DAILY PRN sob 08/21/23 10/14/23 mcg-4.5 mcg/actuation aerosol inhaler sucralfate 1 gram tablet 1 g PO BID 08/21/23 10/14/23 apixaban 2.5 mg tablet (Eliquis) 2.5 mg PO BID 08/22/23 10/14/23 cholecalciferol (vitamin D3) 50 50 mcg PO QAM 08/22/23 10/14/23 mcg (2,000 unit) tablet (Vitamin D3) ferrous sulfate 325 mg (65 mg 325 mg PO .EVERY 48 HOURS 08/22/23 10/14/23 iron) tablet,delayed release methimazole 5 mg tablet 5 mg PO DAILYBB 08/22/23 10/14/23 diltiazem HCl 120 mg capsule,24 120 mg PO DAILY 10/14/23 10/14/23 hr,extended release (Tiadylt ER) Previous Rx's Medication Instructions Recorded ipratropium 0.5 mg-albuterol 3 mg 3 ml inhalation BID PRN shortness 08/24/21 (2.5 mg base)/3 mL nebulization of breath or wheezing #15 mL soln albuterol sulfate 90 mcg/actuation 2 puff inhalation QID PRN 02/22/22 aerosol inhaler (Ventolin HFA) Shortness Of Breath Or Wheezing #8.5 grams benazepril 20 mg tablet 40 mg (2 x 20 mg) PO QPM #180 tabs 04/29/23 atorvastatin 10 mg tablet 10 mg PO QPM #90 tabs 08/19/23 lansoprazole 30 mg capsule,delayed 30 mg PO BID #180 caps 09/06/23 release ondansetron 8 mg disintegrating 8 mg PO Q8H PRN nausea and 09/25/23 tablet vomiting #20 tabs ceftriaxone 1 gram intravenous 1 g IV DAILY 10/14/23 solution hydrocodone 10 mg-acetaminophen 1 tab PO Q6H PRN #0 tabs 10/14/23 325 mg tablet hydromorphone 0.5 mg/0.5 mL 0.5 mg (0.5 mL) IV Q4H PRN #0 mL 10/14/23 injection syringe melatonin 3 mg tablet 3 mg PO HS PRN #0 tabs 10/14/23 ondansetron HCl (PF) 4 mg/2 mL 4 mg (2 mL) IV Q4H PRN #0 mL 10/14/23 injection solution Results & Data (ED) Vital Signs Vital Signs - 24 hr 10/14/23 00:10 10/14/23 00:35 10/14/23 01:09 Temperature 36.8 C Temperature Source Oral Pulse Rate 105 H 75 Pulse Rate [Apical] 105 H Pulse Rhythm [Apical] Irregular Respiratory Rate 24 20 Respiratory Effort / Characteristics Non-Labored Spontaneous Non-Labored Spontaneous Respiratory Depth Normal Normal Respiratory Pattern Regular Blood Pressure 220/135 H Blood Pressure [Right Arm] 126/95 Blood Pressure Mean 163 Blood Pressure Mean [Right Arm] 105 Blood Pressure Position [Right Arm] Semi-fowlers Pulse Oximetry 95 92 Oxygen Delivery Method Room Air Room Air Sepsis Recent Fever Within 48 Hours No Sepsis New/Unexplained Change in Mental Status N/A Sepsis Action Taken by Nursing No Action Required Laboratory Data 10/14/23 16:17 10/14/23 08:14 Lab Results 10/14/23 10/14/23 10/14/23 Range/Units 00:25 00:38 02:19 WBC 19.27 H (4.8-10.8) K/ul RBC 4.12 L (4.20-5.40) M/uL Hgb 11.3 L (12.0-16.0) g/dl Hct 39.3 (37.0-47.0) % MCV 95.4 (80.0-100.0) fL MCH 27.4 (25.0-34.0) pg MCHC 28.8 L (32.0-36.0) g/dL RDW Std Deviation 58.9 H (36.4-46.3) fL RDW Coeff of Rosio 16.9 H (11.5-14.5) % Plt Count 356 (130-400) K/uL MPV 10.0 (9.4-12.4) fL Immature Gran % (Auto) 0.6 % Neut % (Auto) 80.2 % Lymph % (Auto) 14.0 % [place] % (Auto) 4.0 % Eos % (Auto) 0.9 % Baso % (Auto) 0.3 % Neut # (Auto) 15.46 H (1.40-6.50) K/uL Lymph # (Auto) 2.69 (1.20-3.40) K/uL [place] # (Auto) 0.77 H (0.11-0.59) K/uL Eos # (Auto) 0.18 (0.00-0.50) K/uL Baso # (Auto) 0.06 (0.00-0.20) K/uL Immature Gran # (Auto) 0.11 (0.01-0.20) K/uL Sodium 142 (136-145) mmol/L Potassium 4.7 (3.5-5.1) mmol/L Chloride 105 (98-107) mmol/L Carbon Dioxide 23 (21-32) mmol/L Anion Gap 14 H (3-11) BUN 23 (6-23) mg/dl Creatinine 0.93 (0.6-1.2) mg/dl Est Cr Clr Drug Dosing 34.1 ml/min Est GFR ( Amer) 66.8 ml/min Est GFR (Non-Af Amer) 57.6 ml/min BUN/Creatinine Ratio 24.7 H (10-20) Glucose 157 H (70-99(Fasting)) mg/dl Lactate 1.8 (0.4-2.0) mmol/L Calcium 9.4 (8.6-10.3) mg/dl Total Bilirubin 0.3 (0.2-1.0) mg/dl AST 42 H (13-39) U/L ALT 23 (7-52) U/L Alkaline Phosphatase 142 H (34-104) U/L Total Protein 7.6 (6.0-8.3) gm/dl Albumin 4.1 (3.4-5.0) gm/dl Globulin 3.5 (2.5-4.0) gm/dl Albumin/Globulin Ratio 1.2 (0.9-2) Lipase 87 H (11-82) U/L Stl C. cayetanensis PCR Not Detected (NotDetected) Stool Rotavirus A PCR Not Detected (NotDetected) Stl Adenov F 40/41 PCR Not Detected (NotDetected) Stool Astrovirus (PCR) Not Detected (NotDetected) Stool Campylobacter PCR Not Detected (NotDetected) Stool Cryptosporidium PCR Not Detected (NotDetected) Stl E.coli Shiga Tox PCR Not Detected (NotDetected) Stl Enterotoxigenic E PCR Not Detected (NotDetected) Stool EPEC (PCR) Not Detected (NotDetected) Stool EAEC (PCR) Not Detected (NotDetected) Stl E. histolytica PCR Not Detected (NotDetected) Stool Giardia Lamblia PCR Not Detected (NotDetected) Stool Salmonella PCR Not Detected (NotDetected) Stool Sapovirus (PCR) Not Detected (NotDetected) Stl P. shigelloides PCR Not Detected (NotDetected) Stl Shigella/EIEC PCR Not Detected (NotDetected) St Y.enterocolitica PCR Not Detected (NotDetected) Stool Vibrio (PCR) Not Detected (NotDetected) Stl Vibrio cholerae PCR Not Detected (NotDetected) Stl Norovirus GI/GII PCR Not Detected (NotDetected) Administered Medications Discontinued Medications Hydrocodone Bitart/Acetaminophen (Hydrocodone/Acetaminophen 10/325 Tab) 1 tab PO Q6H PRN PRN Reason: Moderate Pain (Scale 4, 5, 6) Stop: 10/28/23 13:07 Last Admin: 10/14/23 13:16 Dose: 1 tab Documented By: JAZMIN Apixaban (Apixaban 2.5 Mg Tab) 2.5 mg PO BID [facility] Stop: 11/13/23 08:59 Last Admin: 10/14/23 08:20 Dose: Not Given Documented By: JAZMIN Diltiazem HCl (Diltiazem Hcl 120 Mg Capcr) 120 mg PO DAILY [facility] Stop: 11/13/23 08:59 Last Admin: 10/14/23 08:20 Dose: Not Given Documented By: JAZMIN Fluticasone Furoate (Fluticasone Furoate 100mcg 14 Puffs/Inhaler) 1 puffs INH DAILY [facility] Stop: 11/13/23 08:59 Last Admin: 10/14/23 07:41 Dose: 1 puffs Documented By: JAZMIN Hydromorphone HCl (Hydromorphone Inj 0.5 Mg/0.5 Ml Syr) 0.25 mg IV NOW STA Stop: 10/14/23 01:11 Last Admin: 10/14/23 01:13 Dose: 0.25 mg Documented By: ESPERANZA Hydromorphone HCl (Hydromorphone Inj 0.5 Mg/0.5 Ml Syr) 0.25 mg IV NOW STA Stop: 10/14/23 02:47 Last Admin: 10/14/23 02:52 Dose: 0.25 mg Documented By: ESPERANZA Hydromorphone HCl (Hydromorphone Inj 0.5 Mg/0.5 Ml Syr) 0.25 mg IV Q6H PRN PRN Reason: Breakthrough Pain Stop: 10/28/23 05:20 Last Admin: 10/14/23 12:05 Dose: 0.25 mg Documented By: Admin: 10/14/23 06:20 Dose: 0.25 mg Documented By: ROOPA Hydromorphone HCl (Hydromorphone Inj 0.5 Mg/0.5 Ml Syr) 0.5 mg IV Q4H PRN PRN Reason: Severe Pain (Scale 7, 8, 9,10) Stop: 10/28/23 05:20 Last Admin: 10/14/23 20:02 Dose: 0.5 mg Documented By: Admin: 10/14/23 14:35 Dose: 0.5 mg Documented By: JAZMIN Sodium Chloride (Nss) 1,000 mls @ 999 mls/hr IV .Q1H1M ONE Stop: 10/14/23 02:05 Last Infusion: 10/14/23 02:10 Dose: Infused Documented By: Admin: 10/14/23 01:09 Dose: 999 mls/hr Documented By: ESPERANZA Lactated Ringer's (Lr) 1,000 mls @ 125 mls/hr IV .Q8H [facility]UNG Stop: 10/14/23 21:20 Last Admin: 10/14/23 14:50 Dose: 125 mls/hr Documented By: Infusion: 10/14/23 14:19 Dose: Infused Documented By: Admin: 10/14/23 06:19 Dose: 125 mls/hr Documented By: ROOPA Acetaminophen (Ofirmev) 1,000 mg in 100 mls @ 400 mls/hr IV Q8H PRN PRN Reason: Pain 1-10 Stop: 10/17/23 05:20 Last Infusion: 10/14/23 16:55 Dose: Infused Documented By: Admin: 10/14/23 16:42 Dose: 400 mls/hr Documented By: Infusion: 10/14/23 07:44 Dose: Infused Documented By: Admin: 10/14/23 07:31 Dose: 400 mls/hr Documented By: JAZMIN Ceftriaxone Sodium (Rocephin) 1,000 mg in 50 mls @ 100 mls/hr IV Q24H [facility]UN[facility] Stop: 10/19/23 14:29 Last Infusion: 10/14/23 15:39 Dose: Infused Documented By: Admin: 10/14/23 15:13 Dose: 100 mls/hr Documented By: JAZMIN Heparin Sodium/Dextrose (Heparin Sodium/Dextrose) 25,000 units in 500 mls @ 17 mls/hr IV .Q24H [facility]; Protocol Stop: 11/13/23 15:59 Last Admin: 10/14/23 16:37 Dose: 850 units/hr, 17 mls/hr Documented By: JAZMIN Co-signed By: CHUY Heparin Sodium (Porcine) 4,000 (units/ Syringe) 4 mls @ 10 mls/min IV NOW ONE Stop: 10/14/23 16:46 Last Admin: 10/14/23 16:38 Dose: 10 mls/min Documented By: JAZMIN Co-signed By: CHUY Ioversol (Optiray 320 100ml) 100 ml IV ONCE ONE Stop: 10/14/23 01:39 Last Admin: 10/14/23 01:39 Dose: 93 ml Documented By: RACHEL Methimazole (Methimazole 5 Mg Tablet) 5 mg PO DAILYBB [facility] Stop: 11/13/23 06:29 Last Admin: 10/14/23 06:14 Dose: Not Given Documented By: ROOPA Ondansetron HCl (Ondansetron Inj 2 Mg/Ml 2 Ml Vial) 4 mg IV NOW STA Stop: 10/14/23 00:27 Last Admin: 10/14/23 00:35 Dose: 4 mg Documented By: ESPERANZA Ondansetron HCl (Ondansetron Inj 2 Mg/Ml 2 Ml Vial) 4 mg IV NOW STA Stop: 10/14/23 01:05 Last Admin: 10/14/23 01:06 Dose: 4 mg Documented By: ESPERANZA Ondansetron HCl (Ondansetron Inj 2 Mg/Ml 2 Ml Vial) 4 mg IV Q4H PRN PRN Reason: Nausea Stop: 11/13/23 05:20 Last Admin: 10/14/23 17:31 Dose: 4 mg Documented By: Admin: 10/14/23 12:07 Dose: 4 mg Documented By: Admin: 10/14/23 07:27 Dose: 4 mg Documented By: JAZMIN Pantoprazole Sodium (Pantoprazole 40 Mg Tab) 40 mg PO BID [facility] Stop: 11/13/23 08:59 Last Admin: 10/14/23 08:20 Dose: Not Given Documented By: WRM Sucralfate (Sucralfate 1 Gm Tab) 1 gm PO BID@0730,2100 [facility] Stop: 11/13/23 07:29 Last Admin: 10/14/23 08:20 Dose: Not Given Documented By: JAZMIN Umeclidinium/Vilanterol (Umeclidinium/Vilanterol 62.5/25mcg 7 Puffs/Inhaler) 1 puffs INH DAILY [facility] Stop: 11/13/23 08:59 Last Admin: 10/14/23 07:41 Dose: 1 puffs Documented By: JAZMIN Discharge Plan Visit Data Chief Complaint: Abdominal Pain Stated Complaint: Abdominal Pain, Diarrhea ED Provider: Brittaney Ventura Discharge Problem: Abdominal pain, acute, epigastric Patient Disposition: Admitted As Inpatient Discharge Instructions Interventions: ED Discharge Assessment Last Done: 10/14/23 05:19
[2023-10-14] MEDS: OPTIRAY 320 100ml IV ONE (01:39)
--- NOTE | 2023-10-14 02:21 | CT Scan Report ---
Exam(s): CT ABDOMEN + PELVIS With Contrast IV Amt: 93 ml optiray 320 EXAM: CT Abdomen and Pelvis With Intravenous Contrast CLINICAL HISTORY: Reason for exam: epigastric pain; hx sma blockages. TECHNIQUE: Axial computed tomography images of the abdomen and pelvis with intravenous contrast. CTDI is 11.32 mGy and DLP is 507.25 mGy-cm. Automated exposure control was utilized for the study. A dose lowering technique was utilized adhering to the principles of ALARA. CONTRAST: Patient received 93 ml optiray 320 of IV contrast COMPARISON: None. FINDINGS: Lung bases: Trace bilateral bronchiectasis with minimal bilateral lower lobe and alert atelectasis. Heart: Unremarkable. No cardiomegaly. No significant pericardial effusion. Normal cardiac size with coronary artery calcifications. Mediastinum: Fluid within the distal esophagus suggestive of reflux. Possible minimal hiatal hernia. ABDOMEN: Liver: Multiple small ill-defined hypoattenuated lesions within the liver, largest measuring approximately 1.7 cm at the right liver lobe, just below the hemidiaphragm, some compatible with liver cysts. Some of the lesions reviewed ill-defined decreased attenuation with neoplastic process difficult to exclude. Gallbladder and bile ducts: Status post cholecystectomy with mild central intrahepatic biliary distention. The common hepatic duct measures approximately 10 mm near the hilum. The common bile duct measures 4.7 mm at the level of the pancreatic head, within normal limits. Pancreas: Unremarkable. No mass. No ductal dilation. Spleen: Unremarkable. No splenomegaly. Adrenals: Unremarkable. No mass. Kidneys and ureters: Multiple low-attenuation lesions within the kidneys, largest on the right measuring 2.2 cm in largest on the left measuring 2.3 cm. No further follow-up imaging recommended. Otherwise unremarkable bilateral kidneys with no hydronephrosis. Stomach and bowel: There is nonspecific distention of several small bowel loops up to 2.3 cm with no significant dilatation to suggest obstruction. The transverse portion of the colon is decompressed. No mucosal thickening. PELVIS: Appendix: No findings to suggest acute appendicitis. Bladder: Unremarkable. No mass. Reproductive: There is indeterminate lesion within the left vaginal gland measuring 1.6 x 1.7 cm. Nonvisualized uterus consistent with prior hysterectomy. ABDOMEN and PELVIS: Intraperitoneal space: Unremarkable. No free air. No significant fluid collection. Bones/joints: Diffuse osteopenia with multilevel degenerative disease of the spine, bilateral SI joints and right hip. Degenerative disease of the pubic symphysis. Status post bilateral eye surgery through the left femur. No acute fracture. No dislocation. Soft tissues: Unremarkable. Vasculature: There is suggestion of a celiac to superior mesenteric artery stent. Thrombus within the superior mesenteric artery, caudal to the level of the stent with absent contrast within the stent suggestive of occlusion of both stent and superior mesenteric artery . There is reconstitution of the distal superior mesenteric artery and corresponding branches. There is contrast visualized only at the origin of the celiac artery, above the level of the stent. The celiac artery is not visualized with questionable occlusion. Extensive calcified atherosclerotic disease of aorta with no aneurysm or dissection. The visualized inferior mesenteric arteries patent. Lymph nodes: Unremarkable. No enlarged lymph nodes. IMPRESSION: 1. Severe atherosclerotic disease throughout the aorta with no aneurysm. 2. 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 Distal reconstitution of the distal superior mesenteric artery and corresponding branches. 3. Areas of ill-defined hypodensities within the liver which may indicate liver lesions versus irregular enhancement due to perfusion abnormality related to celiac artery occlusion. If indicated, these findings may be further correlated with history, prior imaging, otherwise follow up with MRI may help if clinically indicated. 4. Nonspecific bowel distention as described. Electronically signed by: Heidy Batista MD 10/14/23 02:20 AM
[2023-10-14 02:45] LABS: Adenovirus F 40/41 PCR Not Detected (NotDetected); Astrovirus PCR Not Detected (NotDetected); Campylobacter PCR Not Detected (NotDetected); Cryptosporidium PCR Not Detected (NotDetected); Cyclospora cayetanensis PCR Not Detected (NotDetected); Entamoeba histolytica PCR Not Detected (NotDetected); Enteroaggregative E.coli(EAEC) Not Detected (NotDetected); Enteropathogenic E.coli (EPEC) Not Detected (NotDetected); Enterotoxigenic E.coli (ETEC) Not Detected (NotDetected); Giardia lamblia PCR Not Detected (NotDetected); Norovirus GI/GII PCR Not Detected (NotDetected); Plesiomonas shigelloides PCR Not Detected (NotDetected); Rotavirus A PCR Not Detected (NotDetected); Salmonella PCR Not Detected (NotDetected); Sapovirus PCR Not Detected (NotDetected); Shiga-like Toxin E.coli (STEC) Not Detected (NotDetected); Shigella/Enteroinvasive E.coli Not Detected (NotDetected); Vibrio cholerae PCR Not Detected (NotDetected); Vibrio species PCR Not Detected (NotDetected); Yersinia enterocolitica PCR Not Detected (NotDetected)
--- NOTE | 2023-10-14 03:15 | History & Physical Report ---
"Date of Service October 14, 2023 Assessment & Plan (1) Enteritis: (2) Chronic mesenteric ischemia: (3) Superior mesenteric artery stenosis: (4) Chronic gastroesophageal reflux disease: (5) Iron deficiency anemia: (6) Hyperthyroidism: (7) Atrial fibrillation: (8) HLD (hyperlipidemia): Plan Lakeshia is an 83F w/ PMH of chronic mesenteric ischemia & superior mesenteric artery stenosis s/p anastomosis, hyperthyroidism on methimazole, GERD, iron deficiency anemia, PFO, insomnia, HLD, COPD and atrial fibrillation on Eliquis who presents for an acute episode of abdominal pain, diarrhea, and emesis. Enteritis | Abdominal Pain, Diarrhea, Nausea - Patient with epigastric pain, diarrhea, and nausea x 6 hours - CT AP: There is nonspecific distention of several small bowel loops up to 2.3 cm with no significant dilatation to suggest obstruction. No mucosal thickening. - Leukocytosis to 19 - Viral panel negative, potential for non-specific viral enteritis - Presentation consistent with prior episode of acute gastroenteritis (04/15/23, 05/09/23) - Less likely ischemic enteritis given patent anastomosis on 10/10/23 vascular ultrasound - Prior C. 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 Distal reconstitution of the distal superior mesenteric artery and corresponding branches. - 10/09 Vascular ultrasound indicating patency of anastomosis - Vascular Surgery consulted as patient follows w/ Dr. Ahumada as outpatient Appreciate recommendations Chronic Conditions - Hyperthyroidism: continue home methimazole - GERD: continue home lansoprazole and sucralfate - Iron Deficiency Anemia; continue home iron - HLD: continue home statin - Atrial Fibrillation: anticoagulated, continue home diltiazem - COPD: continue home inhalers FEN: NPO Code status: DNR/DNI DVT ppx: Therapeutic Eliquis Isolation: None Dispo:Med/Surg History of Present Illness Chief Complaint: Abdominal Pain Primary Care Provider: Carlton Mendez III, LUIZ Lakeshia is an 83F w/ PMH of chronic mesenteric ischemia & superior mesenteric artery stenosis s/p anastomosis, hyperthyroidism on methimazole, GERD, iron d eficiency anemia, PFO, insomnia, HLD, and atrial fibrillation on Eliquis who presents for an acute episode of abdominal pain, diarrhea, and emesis. Patient notes that at 9:30 she started having diarrhea. She had eaten her normal diet throughout the day - had eaten out for lunch and had dinner at home. She started having chills and sweats at home following the diarrhea. When she started feeling lightheaded she decided to present to the ED. She notes epigastric abdominal pain w/o radiation. She notes she has had this pain in the past with previous admissions. She had a single episode of emesis on arrival that was non-bloody, non-bilious. Patient denies any additional associated symptoms including cough, congestion, or rhinorrhea; chest pain, dyspnea, or LE edema; dysuria, frequency, or urgency. Patient recently had a vascular ultrasound 10/09 to evaluate her anastomosis site, which was noted to be patent/normal. She follows with Dr. Ahumada as an outpatient. ED Course: Zofran x 2, 1 L NSS, Dilaudid 0.25 mg x 2 Allergies Allergy/AdvReac Type Severity Reaction Status Date / Time adhesive tape AdvReac Intermediate PULLS SKIN Verified 09/25/23 16:33 OFF Home Medications Medication Instructions Recorded Confirmed Type latanoprost 0.005 % eye drops 1 drp OPB HS 11/20/18 10/14/23 History (Xalatan) ipratropium 0.5 mg-albuterol 3 mg 3 ml inhalation BID PRN shortness 08/24/21 10/14/23 Rx (2.5 mg base)/3 mL nebulization of breath or wheezing #15 mL soln albuterol sulfate 90 mcg/actuation 2 puff inhalation QID PRN 02/22/22 10/14/23 Rx aerosol inhaler (Ventolin HFA) Shortness Of Breath Or Wheezing #8.5 grams benazepril 20 mg tablet 40 mg (2 x 20 mg) PO QPM #180 tabs 04/29/23 10/14/23 Rx fluticasone fur. 100 mcg-umeclid 1 inh inhalation QAM 05/29/23 10/14/23 History 62.5 mcg-vilant 25 mcg inhalat.powder (Trelegy Ellipta) atorvastatin 10 mg tablet 10 mg PO QPM #90 tabs 08/19/23 10/14/23 Rx aspirin 81 mg tablet,delayed 81 mg PO QPM 08/21/23 10/14/23 History release budesonide-formoterol HFA 160 2 puff inhalation DAILY PRN sob 08/21/23 10/14/23 History mcg-4.5 mcg/actuation aerosol inhaler sucralfate 1 gram tablet 1 g PO BID 08/21/23 10/14/23 History apixaban 2.5 mg tablet (Eliquis) 2.5 mg PO BID 08/22/23 10/14/23 History cholecalciferol (vitamin D3) 50 50 mcg PO QAM 08/22/23 10/14/23 History mcg (2,000 unit) tablet (Vitamin D3) ferrous sulfate 325 mg (65 mg 325 mg PO .EVERY 48 HOURS 08/22/23 10/14/23 History iron) tablet,delayed release methimazole 5 mg tablet 5 mg PO DAILYBB 08/22/23 10/14/23 History lansoprazole 30 mg capsule,delayed 30 mg PO BID #180 caps 09/06/23 10/14/23 Rx release ondansetron 8 mg disintegrating 8 mg PO Q8H PRN nausea and 09/25/23 10/14/23 Rx tablet vomiting #20 tabs diltiazem HCl 120 mg capsule,24 120 mg PO DAILY 10/14/23 10/14/23 History hr,extended release (Tiadylt ER) Past Med/Surg History Problem List (Updated 10/14/23 @ 04:18 by Esdras See DO) Superior mesenteric artery stenosis Chronic mesenteric ischemia Enteritis Chronic gastroesophageal reflux disease Iron deficiency anemia PFO (patent foramen ovale) Insomnia Vitamin D deficiency Hypocalcemia (Acute) Anemia (Acute) Hypomagnesemia Hypokalemia Leukocytosis (Acute) Renal lesion History of colon polyps Thyroid nodule Vocal cord paralysis, unilateral complete [facility] (current) use of anticoagulants (Chronic) Hyperthyroidism Osteoporosis Atrial fibrillation Dx 4-5 years ago; on eliquis; hx cardioversion; follows with Dr. Bi BANKS (hyperlipidemia) Medical History Iron deficiency anemia Hx of falling Hx-TIA (transient ischemic attack) Hx of tongue cancer History of vocal cord paralysis History of COVID-19 (~2022) Hx of transfusion of packed red blood cells (~08/21/23) Hx of fracture of wrist (~04/2023) Closed left hip fracture (07/26/22) Hyperthyroidism LPRD (laryngopharyngeal reflux disease) Liver lesion Aspiration pneumonitis Chronic renal failure (CRF), stage 3b Hypertension Osteoporosis Multiple pulmonary nodules determined by computed tomography of lung Chronic obstructive pulmonary disease SMAS (superior mesenteric artery syndrome) COHN (dyspnea on exertion) Atrial fibrillation HLD (hyperlipidemia) Adrenal nodule Acid reflux Glaucoma History of uterine cancer Surgical History Hx of colonoscopy with polypectomy Hx of abdominal surgery Hx of bilateral cataract extraction S/P cholecystectomy History of anesthesia reaction History of esophagogastroduodenoscopy (EGD) History of total abdominal hysterectomy and bilateral salpingo-oophorectomy History of cardioversion Family History Daughter Breast cancer Mother Cancer Uterine cancer Father Heart disease Sister Family history of diabetes mellitus Brother Family history of diabetes mellitus Aunt Family history of diabetes mellitus Aunt Family history of diabetes mellitus Other Family history non-contributory Hypertension No family history of adverse response to anesthesia Denies family history of Colon cancer Ovarian cancer Prostate cancer Myocardial infarction Social History Smoking Status: Former smoker Tobacco Type: Cigarettes Age Started Using Tobacco: 18; Age Quit Using Tobacco: 52; packs per day: 1; Cigarettes Per Day: quit 22 years ago 1/2 PPD; Second Hand Exposure: No; Do You Dip or Chew Tobacco: No; Hx Alcohol Use: No Hx Substance Use: No Preferred Language: Yi Communication Ability: Effective Visual Impairment: Partially Limited Hearing Ability: Normal 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: No Beliefs That Will Affect Care: None marital status: / Current Living Situation: Alone current occupational status: retired How many Children do You have: 3 Feels Safe at Home: Yes Childhood Exposure to Second-Hand Smoke: Yes Diet: regular Diet Comment: regular caffeine: Yes during the past year weight has: remained stable Dental Care, Regularly: No Physical Activity Frequency: 3-4 Times per Week Seatbelt Use: always Sunscreen Use: No Assistive Devices: Cane, Denture - Upper, Denture - Lower, Glasses, Nebulizer and Walker Physical Exam Physical Exam: Gen: NAD, alert, interactive HEENT: Supple, no LAD, no thyromegaly, no JVD Resp:Non-labored, no wheezing/rhonchi/rales, CTAB CV:tachycardic, irregularly irregular,, normal S1/S2, no M/R/G Abd: Soft, non-distended, epigastric TTP, normoactive bowels, no masses, no rebound or guarding Extr: 2+ dp bilaterally, no edema Skin: No rashes lesions or erythema Results & Data Results & Data Vital Signs (Past 12 Hours) Vital Signs Temp Pulse Pulse Resp BP BP Pulse Ox 10/14/23 02:00 74 16 133/80 91 10/14/23 01:48 87 18 140/50 L 91 10/14/23 01:09 75 10/14/23 01:06 70 22 122/64 96 10/14/23 00:35 105 H 20 126/95 92 10/14/23 00:10 36.8 C 105 H 24 220/135 H 95 O2 Del Method 10/14/23 02:00 Room Air 10/14/23 01:48 Room Air 10/14/23 01:09 10/14/23 01:06 Room Air 10/14/23 00:35 Room Air 10/14/23 00:10 Room Air Diagnostic Findings Date: 10 Oct 2023 TYPE OF TEST: Visceral Arterial Duplex REASON FOR TEST Ao-CeliacA/SMA bifurcated bypass graft; Known celiac limb occlusion; Stented SMA limb INTERPRETATION/FINDINGS Duplex imaging performed of the mesenteric vasculature: 1. 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 The SMA limb of the bypass graft is patent with a widely patent stent in the proximal portion of the graft limb. Increased velocities insonated distal to the stent in the mid graft (345 cm/s) of uncertain hemodynamic significance. Limited grayscale imaging in this area. Lumen narrowing is appreciated with color Doppler imaging. 2. The outflow mid superior mesenteric artery measures 11.0 mm x 10.9 mm. 3. >50% stenosis of the origin of the inferior mesenteric artery. 4. The distal hepatic and distal splenic arteries are patent with delayed uptrokes noted. 5. The splenic and superior mesenteric veins are patent without evidence of thrombosis. Compared to the previous study performed 07/12/2023, there is no change. Resident Activity Tracking Resident Involvement: Resident Care Provided Care Provided: [facility] Medicine (5) Iron deficiency anemia Iron deficiency anemia type: unspecified iron deficiency Qualified Code(s): D50.9 - Iron deficiency anemia, unspecified (7) Atrial fibrillation Atrial fibrillation type: unspecified Qualified Code(s): I48.91 - Unspecified atrial fibrillation (8) HLD (hyperlipidemia) Hyperlipidemia type: mixed hyperlipidemia Qualified Code(s): E78.2 - Mixed hyperlipidemia"
[2023-10-14] MEDS ORDERED: MELATONIN 3 MG TAB PO PRN (05:21)
[2023-10-14] MEDS ORDERED: ALBUT/IPRATROP 3MG/0.5MG NEB 3 ML VIAL INH PRN (05:21)
[2023-10-14] MEDS ORDERED: ALBUTEROL HFA 8 GM INHALER INH PRN (05:21)
[2023-10-14] MEDS ORDERED: BUDESONIDE/FORMOTEROL FUMARATE 160/4.5 60 PUFFS/INHALER INH PRN (05:21)
[2023-10-14] MEDS: methIMAzole 5 MG TABLET PO SCH (06:14)
[2023-10-14] MEDS: LACTATED RINGER'S 1,000 ML IV SCH (06:19)
[2023-10-14] MEDS: HYDROmorphone INJ 0.5 MG/0.5 ML SYR IV PRN ×2 (06:20→14:35)
[2023-10-14] MEDS: ONDANSETRON INJ 2 MG/ML 2 ML VIAL IV PRN (07:27)
[2023-10-14] MEDS: ACETAMINOPHEN 1,000 MG/100 ML VIAL IV PRN (07:31)
[2023-10-14] MEDS: FLUTICASONE FUROATE 100MCG 14 PUFFS/INHALER INH SCH (07:41)
[2023-10-14] MEDS: UMECLIDINIUM/VILANTEROL 62.5/25MCG 7 PUFFS/INHALER INH SCH (07:41)
--- NOTE | 2023-10-14 07:55 | Communication Note ---
Date of Service: October 14, 2023 Lakeshia is an 83F with severe vascular disease and chronic mesenteric ischemia with history of bifurcated bypass to celiac artery and SMA. 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 At that time she was asymptomatic. Presented to ED last night with nausea, abdominal pain, diarrhea. CT abdomen with contrast notable for occlusion of the SMA stent,nonspecific distention of several small bowel loops up to 2.3 cm with no significant dilatation to suggest obstruction. No mucosal thickening. There is some collateralization. Continues to have severe abdominal pain with benign exam, WBC 19-->25K this morning, lactate was initially normal at 1.8, repeat pending. Discussed with Dr. Ahumada who recommended contacting [facility] for transfer, as addressing this is beyond our capabilities here. Discussed with Lakeshia and her daughter at the bedside and contacted transfer center. Other notable findings: Stool biofire testing negative Probable UTI - UA abnormal with 1+ blood, pos nitrate, 2+ LE and >50 WBC, culture pending - IV ceftriaxone ordered. Does not seem significant enough to explain abdominal pain and GI symptoms above Problem list: Mesenteric ischemia as above Hypertension Liver lesions on CT - "Areas of ill-defined hypodensities within the liver which may indicate liver lesions versus irregular enhancement due to perfusion abnormality related to celiac artery occlusion. If indicated, these findings may be further correlated with history, prior imaging, otherwise follow up with MRI may help if clinically indicated." Chronic Conditions - Hyperthyroidism: continue home methimazole - GERD: continue home lansoprazole and sucralfate - Iron Deficiency Anemia; continue home iron - HLD: continue home statin - Atrial Fibrillation: anticoagulated, continue home diltiazem - COPD: continue home inhalers FEN: NPO Code status: DNR/DNI DVT ppx: Therapeutic Eliquis Isolation: None Dispo:Med/Surg
[2023-10-14] MEDS: SUCRALFATE 1 GM TAB PO SCH (08:20)
[2023-10-14] MEDS: dilTIAZem HCL 120 MG CAPCR PO SCH (08:20)
[2023-10-14] MEDS: APIXABAN 2.5 MG TAB PO SCH (08:20)
[2023-10-14] MEDS: PANTOprazole 40 MG TAB PO SCH (08:20)
[2023-10-14 08:41] LABS: Hematocrit (blood only) 32.8 % (37.0-47.0); Hemoglobin 9.7 g/dl (12.0-16.0); Mean Corpuscular Hemoglobin 27.3 pg (25.0-34.0); Mean Corpuscular Hgb Conc 29.6 g/dL (32.0-36.0); Mean Corpuscular Volume 92.4 fL (80.0-100.0); Platelet Count 301 K/uL (130-400); RDW Standard Deviation 57.8 fL (36.4-46.3); Red Blood Count 3.55 M/uL (4.20-5.40); White Blood Count 25.92 K/ul (4.8-10.8)
[2023-10-14] MEDS ORDERED: CHOLECALCIFEROL 25 MCG (1000 UNITS) TAB PO SCH (09:00)
[2023-10-14] MEDS ORDERED: NON-FORMULARY MEDICATION (Fluticasone-Umeclidin-Vilanter [Trelegy Ellipta] 100-62.5-25 mcg INH SCH (09:00)
[2023-10-14] MEDS ORDERED: FERROUS SULFATE 325 MG TAB PO SCH (09:00)
[2023-10-14 09:02] LABS: Albumin Globulin Ratio 1.2 (0.9-2); Albumin Level 3.2 gm/dl (3.4-5.0); BUN Creatinine Ratio 28.3 (10-20); Bilirubin,Total 0.4 mg/dl (0.2-1.0); Calcium 8.1 mg/dl (8.6-10.3); Creatinine Clr Calc Pharmacy 34.4 ml/min; Est GFR (African American) 67.7 ml/min; Est GFR (Non-African American) 58.4 ml/min; Globulin 2.6 gm/dl (2.5-4.0); Potassium 4.2 mmol/L (3.5-5.1); Total Protein 5.8 gm/dl (6.0-8.3)
[2023-10-14 12:03] LABS: Appearance Urine Turbid (Clear); Bacteria Urine Automated 4+ (None Seen); Bilirubin Urine Negative (Negative); Blood Urine 1+ (Negative); Cast Urine Automated 0-2 /lpf (0-2); Color Urine Yellow; Epithelial Cell Urine Auto 0-2 /hpf (0-2); Glucose Urine UA Negative (Negative); Ketones Urine Negative (Negative); Leukocyte Esterase Urine 2+ (Negative); Nitrite Urine Positive (Negative); Protein Urine 1+ (Negative); RBC Urine Automated 0-2 /hpf (0-2); Specific Gravity Urine 1.045 (1.000-1.030); Urobilinogen Urine Negative (Negative); WBC Urine Automated >50 /hpf (0-5)
[2023-10-14] MEDS: HYDROcodone/ACETAMINOPHEN 10/325 TAB PO PRN (13:16)
[2023-10-14] MEDS: cefTRIAXone SODIUM 1,000 MG/50 ML BAG IV SCH (15:13)
[2023-10-14] MEDS ORDERED: Heparin IV Adult Wt-Based Standard w/ INITIAL Bolus Protocol IV SCH (15:47)
[2023-10-14] MEDS ORDERED: HEPARIN SOD (PORCINE) 1000 UNIT/ML IV ONE (15:59)
[2023-10-14] MEDS: HEPARIN SODIUM/DEXTROSE 25,000 UNITS/500 ML BAG IV SCH (16:37)
[2023-10-14] MEDS: HEPARIN IV BOLUS 4,000 UNITS in SYRINGE 0 ML IV ONE (16:38)
[2023-10-14 17:08] LABS: INR 1.2 (0.9-1.1); Partial Thromboplastin Time 27 Seconds (21-31)
--- NOTE | 2023-10-14 17:16 | Discharge Summary ---
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 Patient notes that at 9:30 she started having diarrhea. She had eaten her normal diet throughout the day - had eaten out for lunch and had dinner at home. She started having chills and sweats at home following the diarrhea. When she started feeling lightheaded she decided to present to the ED. She notes epigas tric abdominal pain w/o radiation. She notes she has had this pain in the past with previous admissions. She had a single episode of emesis on arrival that was non-bloody, non-bilious. Patient denies any additional associated symptoms including cough, congestion, or rhinorrhea; chest pain, dyspnea, or LE edema; dysuria, frequency, or urgency. Patient recently had a vascular ultrasound 10/09 to evaluate her anastomosis site, which was noted to be patent/normal. She follows with Dr. Ahumada as an outpatient. ED Course: Zofran x 2, 1 L NSS, Dilaudid 0.25 mg x 2 Principal Diagnosis mesenteric ischemia Discharge Exam PHYSICAL EXAMINATION Last 24h vital signs reviewed, see documentation in flowsheet General: comfortable appearing, no distress HEENT: Normocephalic, atraumatic, pupils round and equal, sclerae anicteric, no conjunctival injection, moist mucus membranes Lungs: Normal respiratory effort. Clear to auscultation bilaterally. No RRW Heart: Regular rate and rhythm, no murmurs. No JVD Abdomen: Soft, nontender, nondistended. No rebound rigidity or guarding. Bowel sounds present. Extremities: Warm, dry, well-perfused. No extremity edema. Neuro: Alert and oriented x 4, face symmetric, moves 4 extremities well Psych: Normal affect and behavior Discharge Data Allergies Allergy/AdvReac Type Severity Reaction Status Date / Time adhesive tape AdvReac Intermediate PULLS SKIN Verified 09/25/23 16:33 OFF Consultations 10/14/23 03:00 ED Decision to Admit Stat 10/14/23 05:21 Consult Vascular Surgery Routine Ordered Studies 10/14/23 01:09 CT Abd and Pelvis [CT abd pelvis IV con only] Stat Abdomen/Pelvis CT 10/14/23 01:09 Exam(s): CT ABDOMEN + PELVIS With Contrast IV Amt: 93 ml optiray 320 EXAM: CT Abdomen and Pelvis With Intravenous Contrast CLINICAL HISTORY: Reason for exam: epigastric pain; hx sma blockages. TECHNIQUE: Axial computed tomography images of the abdomen and pelvis with intravenous contrast. CTDI is 11.32 mGy and DLP is 507.25 mGy-cm. Automated exposure control was utilized for the study. A dose lowering technique was utilized adhering to the principles of ALARA. CONTRAST: Patient received 93 ml optiray 320 of IV contrast COMPARISON: None. FINDINGS: Lung bases: Trace bilateral bronchiectasis with minimal bilateral lower lobe and alert atelectasis. Heart: Unremarkable. No cardiomegaly. No significant pericardial effusion. Normal cardiac size with coronary artery calcifications. Mediastinum: Fluid within the distal esophagus suggestive of reflux. Possible minimal hiatal hernia. ABDOMEN: Liver: Multiple small ill-defined hypoattenuated lesions within the liver, largest measuring approximately 1.7 cm at the right liver lobe, just below the hemidiaphragm, some compatible with liver cysts. Some of the lesions reviewed ill-defined decreased attenuation with neoplastic process difficult to exclude. Gallbladder and bile ducts: Status post cholecystectomy with mild central intrahepatic biliary distention. The common hepatic duct measures approximately 10 mm near the hilum. The common bile duct measures 4.7 mm at the level of the pancreatic head, within normal limits. Pancreas: Unremarkable. No mass. No ductal dilation. Spleen: Unremarkable. No splenomegaly. Adrenals: Unremarkable. No mass. Kidneys and ureters: Multiple low-attenuation lesions within the kidneys, largest on the right measuring 2.2 cm in largest on the left measuring 2.3 cm. No further follow-up imaging recommended. Otherwise unremarkable bilateral kidneys with no hydronephrosis. Stomach and bowel: There is nonspecific distention of several small bowel loops up to 2.3 cm with no significant dilatation to suggest obstruction. The transverse portion of the colon is decompressed. No mucosal thickening. PELVIS: Appendix: No findings to suggest acute appendicitis. Bladder: Unremarkable. No mass. Reproductive: There is indeterminate lesion within the left vaginal gland measuring 1.6 x 1.7 cm. Nonvisualized uterus consistent with prior hysterectomy. ABDOMEN and PELVIS: Intraperitoneal space: Unremarkable. No free air. No significant fluid collection. Bones/joints: Diffuse osteopenia with multilevel degenerative disease of the spine, bilateral SI joints and right hip. Degenerative disease of the pubic symphysis. Status post bilateral eye surgery through the left femur. No acute fracture. No dislocation. Soft tissues: Unremarkable. Vasculature: There is suggestion of a celiac to superior mesenteric artery stent. Thrombus within the superior mesenteric artery, caudal to the level of the stent with absent contrast within the stent suggestive of occlusion of both stent and superior mesenteric artery . There is reconstitution of the distal superior mesenteric artery and corresponding branches. There is contrast visualized only at the origin of the celiac artery, above the level of the stent. The celiac artery is not visualized with questionable occlusion. Extensive calcified atherosclerotic disease of aorta with no aneurysm or dissection. The visualized inferior mesenteric arteries patent. Lymph nodes: Unremarkable. No enlarged lymph nodes. IMPRESSION: 1. Severe atherosclerotic disease throughout the aorta with no aneurysm. 2. 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 Distal reconstitution of the distal superior mesenteric artery and corresponding branches. 3. Areas of ill-defined hypodensities within the liver which may indicate liver lesions versus irregular enhancement due to perfusion abnormality related to celiac artery occlusion. If indicated, these findings may be further correlated with history, prior imaging, otherwise follow up with MRI may help if clinically indicated. 4. Nonspecific bowel distention as described. Electronically signed by: Heidy Batista MD 10/14/23 02:20 AM 10/14/23 10/14/23 10/14/23 Range/Units 16:17 15:51 14:02 WBC Pending (4.8-10.8) K/ul RBC Pending (4.20-5.40) M/uL Hgb Pending (12.0-16.0) g/dl Hct Pending (37.0-47.0) % MCV Pending (80.0-100.0) fL MCH Pending (25.0-34.0) pg MCHC Pending (32.0-36.0) g/dL RDW Std Deviation (36.4-46.3) fL RDW Coeff of Rosio (11.5-14.5) % Plt Count Pending (130-400) K/uL MPV (9.4-12.4) fL Immature Gran % (Auto) % Neut % (Auto) % Lymph % (Auto) % [place] % (Auto) % Eos % (Auto) % Baso % (Auto) % Neut # (Auto) (1.40-6.50) K/uL Lymph # (Auto) (1.20-3.40) K/uL [place] # (Auto) (0.11-0.59) K/uL Eos # (Auto) (0.00-0.50) K/uL Baso # (Auto) (0.00-0.20) K/uL Immature Gran # (Auto) (0.01-0.20) K/uL PT Pending INR Pending APTT Pending PTT Ratio Pending Sodium (136-145) mmol/L Potassium (3.5-5.1) mmol/L Chloride (98-107) mmol/L Carbon Dioxide (21-32) mmol/L Anion Gap (3-11) BUN (6-23) mg/dl Creatinine (0.6-1.2) mg/dl Est Cr Clr Drug Dosing ml/min Est GFR ( Amer) ml/min Est GFR (Non-Af Amer) ml/min BUN/Creatinine Ratio (10-20) Glucose (70-99(Fasting)) mg/dl Lactate 3.6 H* 4.0 H* (0.4-2.0) mmol/L Calcium (8.6-10.3) mg/dl Total Bilirubin (0.2-1.0) mg/dl AST (13-39) U/L ALT (7-52) U/L Alkaline Phosphatase (34-104) U/L Total Protein (6.0-8.3) gm/dl Albumin (3.4-5.0) gm/dl Globulin (2.5-4.0) gm/dl Albumin/Globulin Ratio (0.9-2) Lipase (11-82) U/L Urine Color Urine Appearance (Clear) Urine pH (4.5-7.5) Ur Specific [place] (1.000-1.030) Urine Protein (Negative) Urine Glucose (UA) (Negative) Urine Ketones (Negative) Urine Blood (Negative) Urine Nitrite (Negative) Urine Bilirubin (Negative) Urine Urobilinogen (Negative) Ur Leukocyte Esterase (Negative) Urine WBC (Auto) (0-5) /hpf Urine RBC (Auto) (0-2) /hpf U Hyaline Cast (Auto) (0-2) /lpf U Epithel Cells (Auto) (0-2) /hpf Urine Bacteria (Auto) (None Seen) Stl C. cayetanensis PCR (NotDetected) Stool Rotavirus A PCR (NotDetected) Stl Adenov F 40/41 PCR (NotDetected) Stool Astrovirus (PCR) (NotDetected) Stool Campylobacter PCR (NotDetected) Stool Cryptosporidium PCR (NotDetected) Stl E.coli Shiga Tox PCR (NotDetected) Stl Enterotoxigenic E PCR (NotDetected) Stool EPEC (PCR) (NotDetected) Stool EAEC (PCR) (NotDetected) Stl E. histolytica PCR (NotDetected) Stool Giardia Lamblia PCR (NotDetected) Stool Salmonella PCR (NotDetected) Stool Sapovirus (PCR) (NotDetected) Stl P. shigelloides PCR (NotDetected) Stl Shigella/EIEC PCR (NotDetected) St Y.enterocolitica PCR (NotDetected) Stool Vibrio (PCR) (NotDetected) Stl Vibrio cholerae PCR (NotDetected) Stl Norovirus GI/GII PCR (NotDetected) 10/14/23 10/14/23 10/14/23 Range/Units 11:30 08:14 02:19 WBC 25.92 H (4.8-10.8) K/ul RBC 3.55 L (4.20-5.40) M/uL Hgb 9.7 L (12.0-16.0) g/dl Hct 32.8 L (37.0-47.0) % MCV 92.4 (80.0-100.0) fL MCH 27.3 (25.0-34.0) pg MCHC 29.6 L (32.0-36.0) g/dL RDW Std Deviation 57.8 H (36.4-46.3) fL RDW Coeff of Rosio 17.0 H (11.5-14.5) % Plt Count 301 (130-400) K/uL MPV 10.0 (9.4-12.4) fL Immature Gran % (Auto) % Neut % (Auto) % Lymph % (Auto) % [place] % (Auto) % Eos % (Auto) % Baso % (Auto) % Neut # (Auto) (1.40-6.50) K/uL Lymph # (Auto) (1.20-3.40) K/uL [place] # (Auto) (0.11-0.59) K/uL Eos # (Auto) (0.00-0.50) K/uL Baso # (Auto) (0.00-0.20) K/uL Immature Gran # (Auto) (0.01-0.20) K/uL PT INR APTT PTT Ratio Sodium 144 (136-145) mmol/L Potassium 4.2 (3.5-5.1) mmol/L Chloride 112 H (98-107) mmol/L Carbon Dioxide 23 (21-32) mmol/L Anion Gap 9 (3-11) BUN 26 H (6-23) mg/dl Creatinine 0.92 (0.6-1.2) mg/dl Est Cr Clr Drug Dosing 34.4 ml/min Est GFR ( Amer) 67.7 ml/min Est GFR (Non-Af Amer) 58.4 ml/min BUN/Creatinine Ratio 28.3 H (10-20) Glucose 129 H (70-99(Fasting)) mg/dl Lactate 1.8 (0.4-2.0) mmol/L Calcium 8.1 L (8.6-10.3) mg/dl Total Bilirubin 0.4 (0.2-1.0) mg/dl AST 50 H (13-39) U/L ALT 19 (7-52) U/L Alkaline Phosphatase 93 (34-104) U/L Total Protein 5.8 L D (6.0-8.3) gm/dl Albumin 3.2 L (3.4-5.0) gm/dl Globulin 2.6 (2.5-4.0) gm/dl Albumin/Globulin Ratio 1.2 (0.9-2) Lipase (11-82) U/L Urine Color Yellow Urine Appearance Turbid A (Clear) Urine pH 6.0 (4.5-7.5) Ur Specific [place] 1.045 H (1.000-1.030) Urine Protein 1+ H (Negative) Urine Glucose (UA) Negative (Negative) Urine Ketones Negative (Negative) Urine Blood 1+ H (Negative) Urine Nitrite Positive A (Negative) Urine Bilirubin Negative (Negative) Urine Urobilinogen Negative (Negative) Ur Leukocyte Esterase 2+ H (Negative) Urine WBC (Auto) >50 H (0-5) /hpf Urine RBC (Auto) 0-2 (0-2) /hpf U Hyaline Cast (Auto) 0-2 (0-2) /lpf U Epithel Cells (Auto) 0-2 (0-2) /hpf Urine Bacteria (Auto) 4+ H (None Seen) Stl C. cayetanensis PCR (NotDetected) Stool Rotavirus A PCR (NotDetected) Stl Adenov F 40/41 PCR (NotDetected) Stool Astrovirus (PCR) (NotDetected) Stool Campylobacter PCR (NotDetected) Stool Cryptosporidium PCR (NotDetected) Stl E.coli Shiga Tox PCR (NotDetected) Stl Enterotoxigenic E PCR (NotDetected) Stool EPEC (PCR) (NotDetected) Stool EAEC (PCR) (NotDetected) Stl E. histolytica PCR (NotDetected) Stool Giardia Lamblia PCR (NotDetected) Stool Salmonella PCR (NotDetected) Stool Sapovirus (PCR) (NotDetected) Stl P. shigelloides PCR (NotDetected) Stl Shigella/EIEC PCR (NotDetected) St Y.enterocolitica PCR (NotDetected) Stool Vibrio (PCR) (NotDetected) Stl Vibrio cholerae PCR (NotDetected) Stl Norovirus GI/GII PCR (NotDetected) 10/14/23 10/14/23 Range/Units 00:38 00:25 WBC 19.27 H (4.8-10.8) K/ul RBC 4.12 L (4.20-5.40) M/uL Hgb 11.3 L (12.0-16.0) g/dl Hct 39.3 (37.0-47.0) % MCV 95.4 (80.0-100.0) fL MCH 27.4 (25.0-34.0) pg MCHC 28.8 L (32.0-36.0) g/dL RDW Std Deviation 58.9 H (36.4-46.3) fL RDW Coeff of Rosio 16.9 H (11.5-14.5) % Plt Count 356 (130-400) K/uL MPV 10.0 (9.4-12.4) fL Immature Gran % (Auto) 0.6 % Neut % (Auto) 80.2 % Lymph % (Auto) 14.0 % [place] % (Auto) 4.0 % Eos % (Auto) 0.9 % Baso % (Auto) 0.3 % Neut # (Auto) 15.46 H (1.40-6.50) K/uL Lymph # (Auto) 2.69 (1.20-3.40) K/uL [place] # (Auto) 0.77 H (0.11-0.59) K/uL Eos # (Auto) 0.18 (0.00-0.50) K/uL Baso # (Auto) 0.06 (0.00-0.20) K/uL Immature Gran # (Auto) 0.11 (0.01-0.20) K/uL PT INR APTT PTT Ratio Sodium 142 (136-145) mmol/L Potassium 4.7 (3.5-5.1) mmol/L Chloride 105 (98-107) mmol/L Carbon Dioxide 23 (21-32) mmol/L Anion Gap 14 H (3-11) BUN 23 (6-23) mg/dl Creatinine 0.93 (0.6-1.2) mg/dl Est Cr Clr Drug Dosing 34.1 ml/min Est GFR ( Amer) 66.8 ml/min Est GFR (Non-Af Amer) 57.6 ml/min BUN/Creatinine Ratio 24.7 H (10-20) Glucose 157 H (70-99(Fasting)) mg/dl Lactate (0.4-2.0) mmol/L Calcium 9.4 (8.6-10.3) mg/dl Total Bilirubin 0.3 (0.2-1.0) mg/dl AST 42 H (13-39) U/L ALT 23 (7-52) U/L Alkaline Phosphatase 142 H (34-104) U/L Total Protein 7.6 (6.0-8.3) gm/dl Albumin 4.1 (3.4-5.0) gm/dl Globulin 3.5 (2.5-4.0) gm/dl Albumin/Globulin Ratio 1.2 (0.9-2) Lipase 87 H (11-82) U/L Urine Color Urine Appearance (Clear) Urine pH (4.5-7.5) Ur Specific [place] (1.000-1.030) Urine Protein (Negative) Urine Glucose (UA) (Negative) Urine Ketones (Negative) Urine Blood (Negative) Urine Nitrite (Negative) Urine Bilirubin (Negative) Urine Urobilinogen (Negative) Ur Leukocyte Esterase (Negative) Urine WBC (Auto) (0-5) /hpf Urine RBC (Auto) (0-2) /hpf U Hyaline Cast (Auto) (0-2) /lpf U Epithel Cells (Auto) (0-2) /hpf Urine Bacteria (Auto) (None Seen) Stl C. cayetanensis PCR Not Detected (NotDetected) Stool Rotavirus A PCR Not Detected (NotDetected) Stl Adenov F 40/41 PCR Not Detected (NotDetected) Stool Astrovirus (PCR) Not Detected (NotDetected) Stool Campylobacter PCR Not Detected (NotDetected) Stool Cryptosporidium PCR Not Detected (NotDetected) Stl E.coli Shiga Tox PCR Not Detected (NotDetected) Stl Enterotoxigenic E PCR Not Detected (NotDetected) Stool EPEC (PCR) Not Detected (NotDetected) Stool EAEC (PCR) Not Detected (NotDetected) Stl E. histolytica PCR Not Detected (NotDetected) Stool Giardia Lamblia PCR Not Detected (NotDetected) Stool Salmonella PCR Not Detected (NotDetected) Stool Sapovirus (PCR) Not Detected (NotDetected) Stl P. shigelloides PCR Not Detected (NotDetected) Stl Shigella/EIEC PCR Not Detected (NotDetected) St Y.enterocolitica PCR Not Detected (NotDetected) Stool Vibrio (PCR) Not Detected (NotDetected) Stl Vibrio cholerae PCR Not Detected (NotDetected) Stl Norovirus GI/GII PCR Not Detected (NotDetected) Hospital Course (1) Mesenteric ischemia: 83 y/o with severe vascular disease and chronic mesenteric ischemia with history of bifurcated bypass to celiac artery and SMA. 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 At that time she was asymptomatic. Presented to ED last night with nausea, abdominal pain, diarrhea. CT abdomen with contrast notable for occlusion of the SMA stent, nonspecific distention of several small bowel loops up to 2.3 cm with no significant dilatation to suggest obstruction. No mucosal thickening. There is some collateralization. Continues to have severe abdominal pain. WBC 19-->25K this morning, lactate was initially normal at 1.8, shreyas to 4.0, 3.8 midday. Abdominal exam has remained benign. Presentation very concerning for acute on chronic mesenteric ischemia, with newly occluded SMA stent Discussed with Dr. Ahumada who recommended contacting [facility] for transfer, as addressing this is beyond our capabilities here. Discussed with Lakeshia and her daughter at the bedside and contacted transfer center. Accepted in transfer to hospitalist service with vascular consult - spoke with vascular surgeon Dr. Peterson, held apixaban and started heparin drip. Other notable findings: Stool biofire testing negative Probable UTI - UA abnormal with 1+ blood, pos nitrate, 2+ LE and >50 WBC, culture pending - IV ceftriaxone ordered. Does not seem significant enough to explain abdominal pain and GI symptoms above (2) Chronic mesenteric ischemia: (3) Atrial fibrillation: Chronically on apixaban 2.5 mg bid, diltiazem (4) Chronic obstructive pulmonary disease: Stable not in exacerbation (5) Chronic renal failure (CRF), stage 3b: Renal function stable, at baseline Plan Liver lesions on CT - "Areas of ill-defined hypodensities within the liver which may indicate liver lesions versus irregular enhancement due to perfusion abnormality related to celiac artery occlusion. If indicated, these findings may be further correlated with history, prior imaging, otherwise follow up with MRI may help if clinically indicated." Chronic Conditions - Hyperthyroidism: continue home methimazole - GERD: continue home lansoprazole and sucralfate - Iron Deficiency Anemia; takes iron po - HLD: continue home statin - Atrial Fibrillation: anticoagulated, continue home diltiazem - COPD: continue home inhalers Total Time Total Time Spent Total Time Spent (In Minutes): I personally spent: 75 minutes today on clinical care activities including: reviewing chart notes and vital signs reviewing labs reviewing studies discussion with car sales consultant(s) arranging hospital transfer to higher level of care examining and counseling the patient counseling the patient's family writing orders documentation Discharge Plan Discharge Items Patient Disposition: Transfer Acute Care Hospital Reason For Visit: ENERITITS, DIARRHEA, EMESIS, ABDOMINAL PAIN Discharge Diagnosis: acute on chronic mesenteric ischemia Activity: As commented below Follow-up/Referrals: Carlton Mendez III, CRNP [Primary Care Provider] - Stand-Alone Forms: My [facility] [address] Medications and DC Order Prescriptions: No Action ipratropium-albuterol 0.5 mg-3 mg(2.5 mg base)/3 mL solution for nebulization 3 ml inhalation BID PRN (Reason: shortness of breath or wheezing) Qty: 15 1RF Rx Instructions: INHALE 3 ML INHALATION TWICE A DAY NEEDED FOR SHORTNESS OF BREATH OR WHEEZING benazepril 20 mg tablet 40 mg PO QPM Qty: 180 3RF atorvastatin 10 mg tablet 10 mg PO QPM Qty: 90 3RF ondansetron 8 mg tablet,disintegrating 8 mg PO Q8H PRN (Reason: nausea and vomiting) Qty: 20 0RF albuterol sulfate [Ventolin HFA] 90 mcg/actuation HFA aerosol inhaler 2 puff INHALATION QID PRN (Reason: Shortness Of Breath Or Wheezing) Qty: 8.5 1RF lansoprazole 30 mg capsule,delayed release(DR/EC) 30 mg PO BID Qty: 180 3RF latanoprost [Xalatan] 0.005 % drops 1 drp OPB HS Trelegy Ellipta 100-62.5-25 mcg blister with device 1 inh inhalation QAM sucralfate 1 gram Tablet 1 g PO BID aspirin 81 mg Tablet,Delayed Release (Dr/Ec) 81 mg PO QPM budesonide-formoterol 160-4.5 mcg/actuation Hfa Aerosol Inhaler 2 puff INHALATION DAILY PRN (Reason: sob) diltiazem HCl [Tiadylt ER] 120 mg capsule,extended release 24 hr 120 mg PO DAILY cholecalciferol (vitamin D3) [Vitamin D3] 50 mcg (2,000 unit) Tablet 50 mcg PO QAM Eliquis 2.5 mg tablet 2.5 mg PO BID methimazole 5 mg tablet 5 mg PO DAILYBB ferrous sulfate 325 mg (65 mg iron) tablet,delayed release (DR/EC) 325 mg PO .EVERY 48 HOURS Admission Data Admit Date/Time: 10/14/23 04:02 Attending Provider: Swati Quiros Admit Provider: Esdras See Primary Care Provider: Carlton Mendez III Other Providers: Tomas Moss; Sanjeev Ahumada Coding Level of Care Code None Diagnoses Mesenteric ischemia K55.9 Chronic mesenteric ischemia K55.1 Atrial fibrillation, unspecified type I48.91 Atrial fibrillation type: unspecified Chronic obstructive pulmonary disease J44.9 Chronic renal failure (CRF), stage 3b N18.32
[2023-10-14 17:24] LABS: Acanthocytes 1+; Basophils # (auto) 0.14 K/uL (0.00-0.20); Basophils % (auto) 0.4 %; Echinocytes 1+; Hematocrit (blood only) 33.3 % (37.0-47.0); Hemoglobin 9.8 g/dl (12.0-16.0); Immature Granulocytes # (auto) 0.92 K/uL (0.01-0.20); Immature Granulocytes % (auto) 2.9 %; Lymphocytes # (auto) 1.04 K/uL (1.20-3.40); Lymphocytes % (auto) 3.3 %; Mean Corpuscular Hemoglobin 27.4 pg (25.0-34.0); Mean Corpuscular Hgb Conc 29.4 g/dL (32.0-36.0); Mean Platelet Volume 9.7 fL (9.4-12.4); Monocytes # (auto) 2.44 K/uL (0.11-0.59); Monocytes % (auto) 7.7 %; Neutrophils # (auto) 26.98 K/uL (1.40-6.50); Neutrophils % (auto) 85.7 %; Platelet Count 308 K/uL (130-400); RDW Coefficient of Variation 17.2 % (11.5-14.5); RDW Standard Deviation 58.3 fL (36.4-46.3); Red Blood Count 3.58 M/uL (4.20-5.40); White Blood Count 31.52 K/ul (4.8-10.8)
[2023-10-14] MEDS ORDERED: ENALAPRIL MALEATE 10 MG TAB PO SCH (21:00)
[2023-10-14] MEDS ORDERED: ATORVASTATIN 10 MG TAB PO SCH (21:00)
[2023-10-14] MEDS ORDERED: LATANOPROST 0.005% OP SOLN 2.5 ML BTL OPB SCH (21:00)
[2023-10-14] MEDS ORDERED: ASPIRIN 81 MG ECTAB PO SCH (21:00)
== END 2023-10-14 20:10 | disposition short-term general hospital (02) | DRG 394 ==
LOC: ED 00:06 → 3E 04:02 → SUATTDRO 04:02 → 3E 05:19